=== PATIENT | male | born 1955 | race Two or more races ===

== ENCOUNTER 2016-04-11 | Inpatient (IN) | END 2017-04-10 23:59 | disposition other institution (70) | DRG 130 | DX: J96.10 Chronic respiratory failure, unspecified whether with hypoxia or hypercapnia (principal); R40.3 Persistent vegetative state; G93.1 Anoxic brain damage, not elsewhere classified; L89.154 Pressure ulcer of sacral region, stage 4; I50.9 Heart failure, unspecified; R13.10 Dysphagia, unspecified; Z99.11 Dependence on respirator [ventilator] status; I69.959 Hemiplegia and hemiparesis following unspecified cerebrovascular disease affecting unspecified side; N39.0 Urinary tract infection, site not specified; Z93.0 Tracheostomy status; D64.9 Anemia, unspecified; I10 Essential (primary) hypertension; I25.10 Atherosclerotic heart disease of native coronary artery without angina pectoris; I69.398 Other sequelae of cerebral infarction; Z93.1 Gastrostomy status; Z79.4 Long term (current) use of insulin; R10.9 Unspecified abdominal pain; E78.5 Hyperlipidemia, unspecified ==

== ENCOUNTER 2016-10-11 11:00 | Day surgery (SDC) | payer MEDICARE, MEDICAID, OTHER ==
[~2016-10-11 11:00] MED LIST: ACET-73 GT; ACID1TAB4 GT; ALBU2.5V13 IH; AMIN887L7 GT; ASCO500T9 GT; ASPI81TA31 GT; BISA10SU12 RC; CLOT30CR24 TP; CRAN3875 GT; DEXL60CA3 PO; DILANTIN GT; DOCU50LI GT; FERR300L GT; FERR325T6 GT; FURO40SO2 GT; HEPA500014 SUBCUT; INSU100V7 SQ; INSULIN REGULAR SQ; IPRA0.2S6 NEB; LISI-603 GT; Lisinopril GT; MAGN400O6 GT; MENT113O TP; MINE3.5O RIGHTEYE; MULT1TAB11 GT; NA P133E RC; PANT40SU2 GT; PIOG30TA10 PO; Phenytoin GT; SIMV20TA6 GT; SODI3.5O5 RIGHTEYE
[2016-10-11] MEDS ORDERED: ETOMIDATE 20 MG/10 ML VIAL MC ONE (11:01)
[2016-10-11] MEDS ORDERED: GLYCOPYRROLATE 0.2 MG/ML VIAL MC ONE (11:01)
[2016-10-11] MEDS ORDERED: IV NORMAL SALINE 1000 ML BAG IV ONE (11:01)
[2016-10-11] MEDS ORDERED: LIDOCAINE HCL 1% 20 ML VIAL MC ONE (11:01)
== END 2016-10-11 15:00 | disposition still patient (30) ==
LOC: DS 11:00
PROVIDERS: ATTEND Internal Medicine Gastroenterology
DX: K94.23 Gastrostomy malfunction (principal)
CPT/HCPCS: 43235; A4217; J3490; J7030

== ENCOUNTER 2017-04-11 | Inpatient (IN) | END 2018-04-10 23:59 | disposition still patient (30) | DRG 207 | DX: J96.11 Chronic respiratory failure with hypoxia (principal); L89.154 Pressure ulcer of sacral region, stage 4; R40.3 Persistent vegetative state; G93.1 Anoxic brain damage, not elsewhere classified; Z99.11 Dependence on respirator [ventilator] status; I69.959 Hemiplegia and hemiparesis following unspecified cerebrovascular disease affecting unspecified side; N39.0 Urinary tract infection, site not specified; L03.116 Cellulitis of left lower limb; R13.10 Dysphagia, unspecified; Z93.0 Tracheostomy status; I10 Essential (primary) hypertension; I25.10 Atherosclerotic heart disease of native coronary artery without angina pectoris; I69.398 Other sequelae of cerebral infarction; Z93.1 Gastrostomy status; Z79.4 Long term (current) use of insulin; R10.9 Unspecified abdominal pain; E78.5 Hyperlipidemia, unspecified; B96.4 Proteus (mirabilis) (morganii) as the cause of diseases classified elsewhere; B96.5 Pseudomonas (aeruginosa) (mallei) (pseudomallei) as the cause of diseases classified elsewhere; D63.8 Anemia in other chronic diseases classified elsewhere; E03.9 Hypothyroidism, unspecified; E11.65 Type 2 diabetes mellitus with hyperglycemia; G40.909 Epilepsy, unspecified, not intractable, without status epilepticus; H10.9 Unspecified conjunctivitis; H17.9 Unspecified corneal scar and opacity; H55.00 Unspecified nystagmus; K59.00 Constipation, unspecified; L01.03 Bullous impetigo; L60.0 Ingrowing nail; L74.0 Miliaria rubra; Z87.440 Personal history of urinary (tract) infections ==

== ENCOUNTER 2018-04-11 | Inpatient (IN) | END 2019-04-10 23:59 | disposition still patient (30) | DRG 207 | DX: J96.11 Chronic respiratory failure with hypoxia (principal); L89.154 Pressure ulcer of sacral region, stage 4; G82.50 Quadriplegia, unspecified; R40.3 Persistent vegetative state; G93.1 Anoxic brain damage, not elsewhere classified; Z99.11 Dependence on respirator [ventilator] status; I69.351 Hemiplegia and hemiparesis following cerebral infarction affecting right dominant side; J98.11 Atelectasis; L10.9 Pemphigus, unspecified; R47.01 Aphasia; N39.0 Urinary tract infection, site not specified; R13.10 Dysphagia, unspecified; Z93.0 Tracheostomy status; I25.10 Atherosclerotic heart disease of native coronary artery without angina pectoris; I69.398 Other sequelae of cerebral infarction; Z93.1 Gastrostomy status; Z79.4 Long term (current) use of insulin; E78.5 Hyperlipidemia, unspecified; D63.8 Anemia in other chronic diseases classified elsewhere; E03.9 Hypothyroidism, unspecified; E11.65 Type 2 diabetes mellitus with hyperglycemia; G40.909 Epilepsy, unspecified, not intractable, without status epilepticus; H10.9 Unspecified conjunctivitis; H17.9 Unspecified corneal scar and opacity; H55.00 Unspecified nystagmus; K59.00 Constipation, unspecified; Z87.440 Personal history of urinary (tract) infections; I11.0 Hypertensive heart disease with heart failure; I50.9 Heart failure, unspecified; K11.20 Sialoadenitis, unspecified; N35.919 Unspecified urethral stricture, male, unspecified site; Z86.14 Personal history of Methicillin resistant Staphylococcus aureus infection; Z87.01 Personal history of pneumonia (recurrent); R94.6 Abnormal results of thyroid function studies; Z79.01 Long term (current) use of anticoagulants ==

== ENCOUNTER 2018-11-26 11:34 | Inpatient (IN) | payer MEDICARE, MEDICAID ==
[2018-11-26] VITALS (16 sets, daily range): BP systolic 99–125; BP diastolic 76–98
[~2018-11-26] VITALS: Ht 170.2 cm; Wt 71.2 kg
[2018-11-26 12:45] LABS: CARBON DIOXIDE 28 mmol/L (21-32); CHLORIDE 102 mmol/L (98-107); CREATININE 0.6 mg/dL (0.6-1.3); GLUCOSE 115 mg/dL (74-106); POTASSIUM 3.9 mmol/L (3.5-5.1); UREA NITROGEN, BLOOD 28 mg/dL (7-18)
[2018-11-26 12:50] LABS: HEMATOCRIT 33.3 % (36.7-47.1); HEMOGLOBIN 11.2 g/dL (12.5-16.3)
[2018-11-26 13:33] LABS: BASOPHILS % (AUTO) 0.3 % (0.0-2.0); EOSINOPHILS # (AUTO) 0.2 K/uL (0.0-0.7); EOSINOPHILS % (AUTO) 1.8 % (0.0-7.0); HEMATOCRIT 33.2 % (36.7-47.1); HEMOGLOBIN 11.2 g/dL (12.5-16.3); LYMPHOCYTES # (AUTO) 1.2 K/uL (20.0-40.0); LYMPHOCYTES % (AUTO) 9.7 % (20.5-51.5); MEAN CORPUSCULAR HGB CONC 34 g/dL (32.5-36.3); MEAN CORPUSCULAR VOLUME 92.1 fL (73.0-96.2); MONOCYTES # (AUTO) 0.8 K/uL (2.0-10.0); MONOCYTES % (AUTO) 6.9 % (0.0-11.0); NEUTROPHILS # (AUTO) 9.8 K/uL (1.8-8.9); NEUTROPHILS % (AUTO) 81.3 % (38.5-71.5); PLATELET COUNT (AUTO) 295 K/uL (152-348)
[2018-11-26] MEDS: IV D5/ 0.9% NACL 1,000 ML IV PRN ×2 (13:56→20:30)
[2018-11-26] MEDS ORDERED: DEXTROSE 50% 50 ML DISP.SYRIN IV PRN (14:00)
[2018-11-26] MEDS ORDERED: ZOLPIDEM 5 MG TABLET GT PRN (14:00)
[2018-11-26] MEDS ORDERED: IPRATROPIUM BROMIDE 0.5 MG/2.5 ML NEBU NEB PRN (14:00)
[2018-11-26] MEDS ORDERED: SODIUM CHLORIDE 5% OPHT OINT 3.5 GM TUBE RIGHTEYE SCH (14:00)
[2018-11-26] MEDS ORDERED: ACETAMINOPHEN ES 500 MG TABLET GT PRN (14:00)
[2018-11-26] MEDS ORDERED: BISACODYL 10 MG SUPP.RECT RC PRN ×2 (14:00→16:15)
[2018-11-26] MEDS ORDERED: ONDANSETRON 4 MG/2 ML VIAL IV PRN (14:00)
[2018-11-26] MEDS ORDERED: MINERAL OIL/PETROLAT OPHT OINT 3.5 GM TUBE RIGHTEYE SCH (14:00)
[2018-11-26] MEDS ORDERED: HYDROCODONE/APAP 5-325MG TABLET GT PRN (14:00)
[2018-11-26] MEDS ORDERED: MAGNESIUM HYDROXIDE 30 ML LIQUID UDC GT PRN (14:00)
[2018-11-26] MEDS ORDERED: ACETAMINOPHEN 325 MG TABLET PO PRN (14:00)
[2018-11-26] MEDS ORDERED: ALBUTEROL SULFATE 2.5 MG/ 0.5 ML NEBU IH PRN (14:00)
[2018-11-26] MEDS ORDERED: MORPHINE SULFATE 2 MG/1 ML DISP.SYRIN IV PRN (14:15)
[2018-11-26] MEDS ORDERED: IV NORMAL SALINE 500 ML IV ONE (14:15)
[2018-11-26 14:35] LABS: BASOPHILS % (AUTO) 0.1 % (0.0-2.0); EOSINOPHILS # (AUTO) 0.2 K/uL (0.0-0.7); EOSINOPHILS % (AUTO) 1.5 % (0.0-7.0); HEMATOCRIT 31.4 % (36.7-47.1); HEMOGLOBIN 10.5 g/dL (12.5-16.3); LYMPHOCYTES # (AUTO) 1.4 K/uL (20.0-40.0); MEAN CORPUSCULAR HEMOGLOBIN 31.1 uug (23.8-33.4); MEAN CORPUSCULAR HGB CONC 33 g/dL (32.5-36.3); MEAN CORPUSCULAR VOLUME 93.2 fL (73.0-96.2); MONOCYTES # (AUTO) 0.9 K/uL (2.0-10.0); MONOCYTES % (AUTO) 7.6 % (0.0-11.0); NEUTROPHILS # (AUTO) 9.3 K/uL (1.8-8.9); NEUTROPHILS % (AUTO) 78.8 % (38.5-71.5); PLATELET COUNT (AUTO) 268 K/uL (152-348); RED BLOOD CELL COUNT(AUTO) 3.37 MIL/uL (4.06-5.63); WHITE BLOOD COUNT (AUTO) 11.8 K/uL (3.6-10.2)
[2018-11-26] MEDS ORDERED: MORPHINE SULFATE 2 MG/1 ML DISP.SYRIN IVP PRN (14:45)
[2018-11-26] MEDS ORDERED: FERR300L GT (15:46)
[2018-11-26] MEDS ORDERED: POTA10TA10 PO (15:46)
[2018-11-26] MEDS ORDERED: ACET-2154 GT (15:46)
[2018-11-26] MEDS ORDERED: INSU100V28 SQ (15:46)
[2018-11-26] MEDS ORDERED: ENOX40DI SUBCUT (15:46)
[2018-11-26] MEDS ORDERED: ATOR10TA GT (15:46)
[2018-11-26] MEDS ORDERED: POLY15DR27 OP (15:46)
[2018-11-26] MEDS ORDERED: HYDR1SOL MC (15:46)
[2018-11-26] MEDS ORDERED: LEVO50TA8 GT (15:46)
[2018-11-26] MEDS ORDERED: ZINC57OI3 TP (15:48)
[2018-11-26] MEDS ORDERED: DEXT50DI8 IV (15:50)
[2018-11-26] MEDS ORDERED: HYDROGEN PEROXIDE 3% TOP (15:59)
[2018-11-26] MEDS ORDERED: SODI3.5O4 RIGHTEYE (15:59)
[2018-11-26] MEDS ORDERED: PROTEIN HYDROLYS GT SCH (17:00)
[2018-11-26] MEDS: PANTOPRAZOLE ORAL SUSPENSION 40 MG SUSPDR.PKT GT SCH ×2 (17:00→17:24)
[2018-11-26] MEDS ORDERED: AMINO ACIDS GT SCH (17:00)
[2018-11-26] MEDS ORDERED: DOCUSATE SODIUM 100 MG/10 ML LIQUID UDC GT SCH (17:00)
[2018-11-26] MEDS: DOCUSATE SODIUM 100 MG/10 ML LIQUID UDC GT SCH ×2 (17:00→17:22)
[2018-11-26] MEDS ORDERED: IV NS 1000 ML 1,000 ML IV ONE (17:00)
[2018-11-26] MEDS ORDERED: [UNRECOGNIZED DRUG - OTHER] GT SCH (17:00)
[2018-11-26 17:51] LABS: HEMATOCRIT 26.5 % (36.7-47.1); HEMOGLOBIN 8.9 g/dL (12.5-16.3)
[2018-11-26] MEDS ORDERED: SIMVASTATIN 20 MG TABLET GT SCH (18:00)
[2018-11-26] MEDS: BLOOD SUGAR DIAGNOSTIC 1 EACH STRIP VI SCH (18:15)
[2018-11-26] MEDS ORDERED: MIDAZOLAM HCL 2 MG/2 ML VIAL ONE (18:23)
[2018-11-26] MEDS ORDERED: ROCURONIUM BROMIDE 50 MG/5 ML VIAL ONE (18:23)
[2018-11-26] MEDS ORDERED: ACETAMINOPHEN 325 MG TABLET GT PRN (18:30)
[2018-11-26] MEDS ORDERED: ETOMIDATE 20 MG/10 ML VIAL IV ONE (19:40)
[2018-11-26] MEDS ORDERED: IV NORMAL SALINE 1000 ML BAG IV ONE ×2 (19:40)
[2018-11-26] MEDS ORDERED: PROPOFOL 200 MG/20 ML BOTTLE IV ONE (19:40)
[2018-11-26] MEDS ORDERED: ESMOLOL HCL 100 MG/10 ML VIAL IV ONE (19:40)
[2018-11-26 20:14] LABS: HEMATOCRIT 24.8 % (36.7-47.1); HEMOGLOBIN 8.4 g/dL (12.5-16.3)
[2018-11-26] MEDS: POLYVINYL ALCOHOL OPHT DROPS 15 ML BOTTLE OP SCH (20:32)
[2018-11-26] MEDS: PHENYTOIN 100 MG/4 ML UDC GT SCH (20:32)
[2018-11-26] MEDS: SODIUM CHLORIDE 5% OPHT OINT 3.5 GM TUBE RIGHTEYE SCH (20:32)
[2018-11-26] MEDS: HYDROGEN PEROXIDE 3% 118 ML BOTTLE TOP SCH (20:33)
[2018-11-26] MEDS ORDERED: INSULIN GLARGINE,HUM 300 UNITS/3 ML CARTRIDGE SQ SCH ×2 (21:00)
[2018-11-26] MEDS ORDERED: ATORVASTATIN 10 MG TABLET GT SCH (21:00)
[2018-11-27] VITALS (14 sets, daily range): BP systolic 97–139; BP diastolic 56–78
[2018-11-27] MEDS: SODIUM CHLORIDE 5% OPHT OINT 3.5 GM TUBE RIGHTEYE SCH ×4 (00:04→12:39)
[2018-11-27 00:18] LABS: HEMATOCRIT 29.3 % (36.7-47.1)
[2018-11-27] MEDS: BLOOD SUGAR DIAGNOSTIC 1 EACH STRIP VI SCH ×4 (00:19→16:59)
[2018-11-27] MEDS: POLYVINYL ALCOHOL OPHT DROPS 15 ML BOTTLE OP SCH ×5 (00:20→16:20)
[2018-11-27] MEDS: INSULIN REGULAR, HUMAN 300 UNIT/3 ML VIAL SQ PRN ×4 (00:34→17:01)
[2018-11-27 04:48] LABS: BASOPHILS % (AUTO) 0.3 % (0.0-2.0); EOSINOPHILS # (AUTO) 0.2 K/uL (0.0-0.7); EOSINOPHILS % (AUTO) 1.2 % (0.0-7.0); HEMATOCRIT 27.6 % (36.7-47.1); HEMOGLOBIN 9.4 g/dL (12.5-16.3); LYMPHOCYTES # (AUTO) 1.8 K/uL (20.0-40.0); LYMPHOCYTES % (AUTO) 13.4 % (20.5-51.5); MEAN CORPUSCULAR HEMOGLOBIN 31.1 uug (23.8-33.4); MEAN CORPUSCULAR HGB CONC 34 g/dL (32.5-36.3); MEAN CORPUSCULAR VOLUME 91.6 fL (73.0-96.2); MONOCYTES % (AUTO) 7.8 % (0.0-11.0); NEUTROPHILS # (AUTO) 10.2 K/uL (1.8-8.9); NEUTROPHILS % (AUTO) 77.3 % (38.5-71.5); PLATELET COUNT (AUTO) 232 K/uL (152-348); RED BLOOD CELL COUNT(AUTO) 3.01 MIL/uL (4.06-5.63); WHITE BLOOD COUNT (AUTO) 13.2 K/uL (3.6-10.2)
[2018-11-27 05:26] LABS: CARBON DIOXIDE 25 mmol/L (21-32); CHLORIDE 107 mmol/L (98-107); CHOLESTEROL 117 mg/dL (<200); CREATININE 0.6 mg/dL (0.6-1.3); GLUCOSE 212 mg/dL (74-106); HDL CHOLESTEROL 27 mg/dL (40-60); MAGNESIUM 1.9 mg/dL (1.8-2.4); PHOSPHOROUS 3.1 mg/dL (2.5-4.9); POTASSIUM 4.8 mmol/L (3.5-5.1); TRIGLYCERIDES 282 MG/DL (30-150); UREA NITROGEN, BLOOD 21 mg/dL (7-18)
[2018-11-27] MEDS ORDERED: LEVOTHYROXINE SODIUM 50 MCG TABLET GT SCH (07:00)
[2018-11-27] MEDS: PHENYTOIN 100 MG/4 ML UDC GT SCH (07:47)
[2018-11-27] MEDS: DOCUSATE SODIUM 100 MG/10 ML LIQUID UDC GT SCH ×2 (07:47→16:45)
[2018-11-27] MEDS: ACIDOPHILUS/BULGARICUS CHEW TAB GT SCH ×2 (07:48→16:45)
[2018-11-27] MEDS: PANTOPRAZOLE ORAL SUSPENSION 40 MG SUSPDR.PKT GT SCH (07:48)
[2018-11-27] MEDS: HYDROGEN PEROXIDE 3% 118 ML BOTTLE TOP SCH (07:51)
[2018-11-27] MEDS ORDERED: ACETAMINOPHEN 325 MG TABLET PO PRN (08:00)
[2018-11-27 08:44] LABS: ABG BASE EXCESS -2.3 mmol/L; ABG HCO3 22.4 mmol/L; ABG PCO2 37.7 mmHg (35.0-45.0); ABG PH 7.391 (7.350-7.450); ABG PO2 117.9 mmHg (75.0-100.0); ABG SITE LEFT RADIAL; ABG TOTAL HEMOGLOBIN 9.7 G/dL (13.5-18.0); COHb 1.1 % (0.5-1.5); MetHb 0.3 % (0.0-1.5); O2Hb 97.2 % (94.0-97.0); VENT MODE VENT - A/C; VT, ABG 500 mL
[2018-11-27] MEDS ORDERED: FERROUS SULFATE 300 MG/5 ML LIQUID UDC GT SCH ×2 (09:00)
[2018-11-27] MEDS ORDERED: POTASSIUM CHLORIDE 20 MEQ POWDER PACKET GT SCH (09:00)
[2018-11-27] MEDS ORDERED: LISINOPRIL 20 MG TABLET GT SCH (09:00)
[2018-11-27] MEDS ORDERED: ASCORBIC ACID 500 MG TABLET GT SCH ×2 (09:00)
[2018-11-27] MEDS ORDERED: PIOGLITAZONE HCL 30 MG TABLET PO SCH (09:00)
[2018-11-27] MEDS ORDERED: ACETAMINOPHEN 650 MG/20.3 ML LIQUID UDC GT PRN (09:00)
[2018-11-27] MEDS ORDERED: ENOX40DI SQ (13:45)
[2018-11-27] MEDS ORDERED: ASPI81TA44 GT (13:45)
[2018-11-27] MEDS: IV D5/ 0.9% NACL 1,000 ML IV PRN (13:50)
[2018-11-27] MEDS ORDERED: PANT40SU2 GT (13:51)
[2018-11-27] MEDS ORDERED: NUT.237L30 GT (13:54)
[2018-11-27] MEDS ORDERED: SODIUM CHLORIDE 5% OPHT OINT 3.5 GM TUBE RIGHTEYE SCH (17:00)
[2018-11-28] MEDS ORDERED: PANTOPRAZOLE ORAL SUSPENSION 40 MG SUSPDR.PKT GT SCH (06:00)
[2018-11-28] MEDS ORDERED: FLEET ENEMA 133 ML BOTTLE RC SCH (09:00)
== END 2018-11-27 18:00 | DRG 982 ==
LOC: CCU 11:34
PROVIDERS: ADMIT Internal Medicine; ATTEND Internal Medicine
PROC: 0W3P7ZZ Control Bleeding in Gastrointestinal Tract, Via Natural or Artificial Opening (ICD-10-PCS; principal; 2018-11-26)
PROC: 30233N1 Transfusion of Nonautologous Red Blood Cells into Peripheral Vein, Percutaneous Approach (ICD-10-PCS; 2018-11-26)
PROC: 5A1945Z Respiratory Ventilation, 24-96 Consecutive Hours (ICD-10-PCS; 2018-11-26)
DX: J35.8 Other chronic diseases of tonsils and adenoids (principal); J96.10 Chronic respiratory failure, unspecified whether with hypoxia or hypercapnia; I69.351 Hemiplegia and hemiparesis following cerebral infarction affecting right dominant side; D62 Acute posthemorrhagic anemia; Z99.11 Dependence on respirator [ventilator] status; G93.1 Anoxic brain damage, not elsewhere classified; L10.9 Pemphigus, unspecified; R13.10 Dysphagia, unspecified; E11.9 Type 2 diabetes mellitus without complications; E78.5 Hyperlipidemia, unspecified; I25.10 Atherosclerotic heart disease of native coronary artery without angina pectoris; R23.8 Other skin changes; H10.403 Unspecified chronic conjunctivitis, bilateral; Z79.899 Other long term (current) drug therapy; Z93.1 Gastrostomy status; Z93.0 Tracheostomy status; Z87.440 Personal history of urinary (tract) infections; Z87.01 Personal history of pneumonia (recurrent); Z79.4 Long term (current) use of insulin; I11.0 Hypertensive heart disease with heart failure; I50.9 Heart failure, unspecified
CPT/HCPCS: 36415; 36600; 71045; 83735; 84100; 85018; 85025; 86850; 86900; 86901; 86920; 93005; 94002; 94003; A4663; G0378; J1815; J2250; J2270; J3490; J3590; J7030; J7040; J7042; J7050; P9016-BL; P9021

== ENCOUNTER 2018-11-30 08:43 | Outpatient (CLI) | payer MEDICAID, MEDICARE ==
[~2018-11-30 08:43] MED LIST changes: +ACET-2154 GT; -ACET-73 GT; -AMIN887L7 GT; -ASCO500T9 GT; -ASPI81TA31 GT; +ASPI81TA44 GT; +ATOR10TA GT; -CLOT30CR24 TP; -CRAN3875 GT; -DEXL60CA3 PO; +DEXT50DI8 IV; +ENOX40DI SQ; -FERR325T6 GT; -FURO40SO2 GT; -HEPA500014 SUBCUT; +HYDROGEN PEROXIDE 3% TOP; +INSU100V28 SQ; +LEVO50TA8 GT; -LISI-603 GT; -Lisinopril GT; -MAGN400O6 GT; -MENT113O TP; -MINE3.5O RIGHTEYE; -MULT1TAB11 GT; -NA P133E RC; +NUT.237L30 GT; -PIOG30TA10 PO; +POLY15DR27 OP; +POTA10TA10 PO; -Phenytoin GT; -SIMV20TA6 GT; +SODI3.5O4 RIGHTEYE; +ZINC57OI3 TP
[2018-11-30] MEDS ORDERED: IOHEXOL 300MG/ML 100 ML INFUS..BTL ONE (08:49)
[2018-11-30] MEDS ORDERED: IV NORMAL SALINE 250 ML IV ONE (08:49)
[2018-11-30] MEDS ORDERED: SWABABLE VALVE TRANSFER SET EA MC ONE (08:49)
== END 2018-11-30 23:59 | disposition home or self-care (01) ==
LOC: CT 08:43
PROVIDERS: ATTEND Internal Medicine Nephrology
DX: J35.8 Other chronic diseases of tonsils and adenoids (principal); J43.9 Emphysema, unspecified; M47.813 Spondylosis without myelopathy or radiculopathy, cervicothoracic region; M25.78 Osteophyte, vertebrae; J98.8 Other specified respiratory disorders; E07.89 Other specified disorders of thyroid; R59.0 Localized enlarged lymph nodes; Z93.0 Tracheostomy status
CPT/HCPCS: 70492; Q9967; J7050

== ENCOUNTER 2019-11-30 07:45 | Outpatient (CLI) | payer MEDICARE, OTHER ==
[2019-11-30] MEDS ORDERED: IV NORMAL SALINE 250 ML IV ONE (08:02)
[2019-11-30] MEDS ORDERED: SWABABLE VALVE TRANSFER SET EA MC ONE (08:02)
[2019-11-30] MEDS ORDERED: IOHEXOL 300MG/ML 100 ML INFUS..BTL ONE (08:02)
== END 2019-11-30 23:59 | disposition home or self-care (01) ==
LOC: CT 07:45
PROVIDERS: ATTEND Internal Medicine Pulmonary Disease
DX: G93.89 Other specified disorders of brain (principal); I65.03 Occlusion and stenosis of bilateral vertebral arteries; K11.0 Atrophy of salivary gland; M62.519 Muscle wasting and atrophy, not elsewhere classified, unspecified shoulder; Z93.0 Tracheostomy status
CPT/HCPCS: 70492; Q9967; J7050

== ENCOUNTER → 2020-04-10 23:59 | Inpatient (IN) | payer MEDICARE, MEDICAID ==
[2019-04-12 08:00] VITALS: BP 107/64
[2019-04-12] MEDS: INSULIN REGULAR, HUMAN 300 UNIT/3 ML VIAL SQ PRN ×2 (14:20→22:18)
[2019-04-12] MEDS: GLUCERNA 1.2 1000ML LIQUID GT PRN (14:50)
[2019-04-12] MEDS: POLYVINYL ALCOHOL OPHT DROPS 15 ML BOTTLE EACHEYE SCH ×2 (16:24→20:00)
[2019-04-12] MEDS: SODIUM CHLORIDE 5% OPHT OINT 3.5 GM TUBE RIGHTEYE SCH ×2 (17:27→21:00)
[2019-04-12] MEDS: INSULIN GLARGINE,HUM 300 UNITS/3 ML CARTRIDGE SQ SCH (17:37)
--- NOTE | 2019-04-12 19:57 | NUR ---
Received pt on HT-50 ventilator with the following settings of AC-14, Vt-500, PEEP+5, FIO2-35%, trached with Portex#9 cuffed trach, which is in the place and secure. No s/s of respiratory distress noted. Airway care done, pt responded to physical stimuli. HME changed. Resus. bag and back up trach at bedside. Vent and alarms checked and reset.
[2019-04-12 20:15] VITALS: BP 134/87
[2019-04-12] MEDS: FERROUS SULFATE 330 MG/7.5 ML UDC- FOR SA ONLY GT SCH (21:00)
[2019-04-12] MEDS: PHENYTOIN 100 MG/4 ML UDC GT SCH (21:00)
[2019-04-12] MEDS: DOCUSATE SODIUM 100 MG/10 ML LIQUID UDC GT SCH (21:00)
[2019-04-12] MEDS: ATORVASTATIN 10 MG TABLET GT SCH (21:00)
[2019-04-12] MEDS: COD LIVER OIL/ZINC OXIDE OINT 113 GM TUBE TOP SCH (21:00)
[2019-04-12] MEDS: ACIDOPHILUS/BULGARICUS CHEW TAB GT SCH (21:00)
[2019-04-12] MEDS: HYDROGEN PEROXIDE 3% 118 ML BOTTLE TP SCH (21:02)
[2019-04-12] MEDS: BLOOD SUGAR DIAGNOSTIC 1 EACH STRIP VI SCH (22:17)
[2019-04-12 22:21] VITALS: BP 134/87
[2019-04-13] MEDS: SODIUM CHLORIDE 5% OPHT OINT 3.5 GM TUBE RIGHTEYE SCH ×6 (01:00→21:43)
[2019-04-13] MEDS: POLYVINYL ALCOHOL OPHT DROPS 15 ML BOTTLE EACHEYE SCH ×6 (04:00→20:00)
[2019-04-13] MEDS: PANTOPRAZOLE ORAL SUSPENSION 40 MG SUSPDR.PKT GT SCH (05:42)
[2019-04-13] MEDS: LEVOTHYROXINE SODIUM 50 MCG TABLET GT SCH (05:42)
[2019-04-13] MEDS: INSULIN GLARGINE,HUM 300 UNITS/3 ML CARTRIDGE SQ SCH ×2 (05:50→17:51)
[2019-04-13] MEDS: BLOOD SUGAR DIAGNOSTIC 1 EACH STRIP VI SCH ×3 (05:51→21:44)
[2019-04-13] MEDS: INSULIN REGULAR, HUMAN 300 UNIT/3 ML VIAL SQ PRN ×3 (05:51→21:45)
[2019-04-13] MEDS: POTASSIUM CHLORIDE 20 MEQ POWDER PACKET GT SCH (08:01)
[2019-04-13] MEDS: PHENYTOIN 100 MG/4 ML UDC GT SCH ×2 (08:01→21:43)
[2019-04-13 08:02] VITALS: BP 111/70
[2019-04-13] MEDS: ACIDOPHILUS/BULGARICUS CHEW TAB GT SCH ×2 (08:02→21:43)
[2019-04-13] MEDS: DOCUSATE SODIUM 100 MG/10 ML LIQUID UDC GT SCH ×2 (08:02→21:43)
[2019-04-13] MEDS: COD LIVER OIL/ZINC OXIDE OINT 113 GM TUBE TOP SCH ×2 (08:02→21:43)
[2019-04-13] MEDS: HYDROGEN PEROXIDE 3% 118 ML BOTTLE TP SCH ×2 (09:52→20:16)
--- NOTE | 2019-04-13 19:00 | NUR ---
RECEIVED PATIENT ON THE HT-50 VENT WITH THE FOLLOWING SETTINGS THAT ARE CHARTED ON THE MECHANICAL VENT NOTES. TRACH TUBE IS PATENT AND SECURED WITH TRACH TIES. HME CHANGED. TRACH CARE DONE. SUCTIONED SMALL AMOUNTS OF THIN WHITE/YELLOW SECRETIONS. VENT ALARMS CHECKED AND THEY ARE ON AND AUDIBLE. VENT IS PLUGGED IN THE RED OUTLET. BACK UP TRACH AND AMBU BAG IS BY BEDSIDE. PATIENT IS TOLERATING CURRENT VENT SETTINGS WELL AT THIS TIME WITH NO SOB NOTED.
[2019-04-13 20:00] VITALS: BP 126/73
[2019-04-13] MEDS: FERROUS SULFATE 330 MG/7.5 ML UDC- FOR SA ONLY GT SCH (21:43)
[2019-04-13] MEDS: ATORVASTATIN 10 MG TABLET GT SCH (21:43)
[2019-04-14] MEDS: SODIUM CHLORIDE 5% OPHT OINT 3.5 GM TUBE RIGHTEYE SCH ×6 (01:00→21:00)
[2019-04-14] MEDS: POLYVINYL ALCOHOL OPHT DROPS 15 ML BOTTLE EACHEYE SCH ×6 (04:00→20:00)
[2019-04-14] MEDS: PANTOPRAZOLE ORAL SUSPENSION 40 MG SUSPDR.PKT GT SCH (05:42)
[2019-04-14] MEDS: LEVOTHYROXINE SODIUM 50 MCG TABLET GT SCH (05:44)
[2019-04-14] MEDS: BLOOD SUGAR DIAGNOSTIC 1 EACH STRIP VI SCH ×3 (05:48→22:10)
[2019-04-14] MEDS: INSULIN GLARGINE,HUM 300 UNITS/3 ML CARTRIDGE SQ SCH ×2 (05:48→17:14)
[2019-04-14] MEDS: INSULIN REGULAR, HUMAN 300 UNIT/3 ML VIAL SQ PRN ×3 (05:50→22:11)
[2019-04-14] MEDS: HYDROGEN PEROXIDE 3% 118 ML BOTTLE TP SCH ×2 (07:05→21:11)
[2019-04-14 08:02] VITALS: BP 107/72
[2019-04-14] MEDS: DOCUSATE SODIUM 100 MG/10 ML LIQUID UDC GT SCH ×2 (08:31→21:00)
[2019-04-14] MEDS: COD LIVER OIL/ZINC OXIDE OINT 113 GM TUBE TOP SCH ×2 (08:31→21:00)
[2019-04-14] MEDS: BISACODYL 10 MG SUPP.RECT RC SCH (08:31)
[2019-04-14] MEDS: POTASSIUM CHLORIDE 20 MEQ POWDER PACKET GT SCH (08:31)
[2019-04-14] MEDS: PHENYTOIN 100 MG/4 ML UDC GT SCH ×2 (08:31→21:00)
[2019-04-14] MEDS: ACIDOPHILUS/BULGARICUS CHEW TAB GT SCH ×2 (08:31→21:00)
[2019-04-14] MEDS: GLUCERNA 1.2 1000ML LIQUID GT PRN (15:37)
--- NOTE | 2019-04-14 20:22 | NUR ---
Received pt on HT-50 ventilator with the following settings of AC-14, Vt-500, PEEP+5, FIO2-35%, trached with Portex#9 cuffed trach, which is in the place and secure. No s/s of respiratory distress noted. Airway care done, pt responded to physical stimuli. HME and Sx Guaman changed. Resus. bag and back up trach at bedside. Vent and alarms checked and reset.
[2019-04-14] MEDS: ATORVASTATIN 10 MG TABLET GT SCH (21:00)
[2019-04-14] MEDS: FERROUS SULFATE 330 MG/7.5 ML UDC- FOR SA ONLY GT SCH (21:00)
[2019-04-14 21:03] VITALS: BP 129/71
[2019-04-15] MEDS: SODIUM CHLORIDE 5% OPHT OINT 3.5 GM TUBE RIGHTEYE SCH ×6 (01:00→20:26)
[2019-04-15] MEDS: POLYVINYL ALCOHOL OPHT DROPS 15 ML BOTTLE EACHEYE SCH ×6 (04:00→20:24)
[2019-04-15] MEDS: PANTOPRAZOLE ORAL SUSPENSION 40 MG SUSPDR.PKT GT SCH (05:20)
[2019-04-15] MEDS: LEVOTHYROXINE SODIUM 50 MCG TABLET GT SCH (05:22)
[2019-04-15] MEDS: INSULIN GLARGINE,HUM 300 UNITS/3 ML CARTRIDGE SQ SCH ×2 (05:24→17:05)
[2019-04-15] MEDS: BLOOD SUGAR DIAGNOSTIC 1 EACH STRIP VI SCH ×3 (05:24→22:05)
[2019-04-15] MEDS: INSULIN REGULAR, HUMAN 300 UNIT/3 ML VIAL SQ PRN ×3 (05:25→22:07)
[2019-04-15 08:02] VITALS: BP 124/78
[2019-04-15] MEDS: PHENYTOIN 100 MG/4 ML UDC GT SCH ×2 (08:40→20:25)
[2019-04-15] MEDS: DOCUSATE SODIUM 100 MG/10 ML LIQUID UDC GT SCH ×2 (08:40→20:24)
[2019-04-15] MEDS: COD LIVER OIL/ZINC OXIDE OINT 113 GM TUBE TOP SCH ×2 (08:42→20:27)
[2019-04-15] MEDS: POTASSIUM CHLORIDE 20 MEQ POWDER PACKET GT SCH (08:42)
[2019-04-15] MEDS: ACIDOPHILUS/BULGARICUS CHEW TAB GT SCH ×2 (08:42→20:26)
[2019-04-15] MEDS: HYDROGEN PEROXIDE 3% 118 ML BOTTLE TP SCH ×2 (09:00→20:04)
[2019-04-15] MEDS: GLUCERNA 1.2 1000ML LIQUID GT PRN (13:27)
--- NOTE | 2019-04-15 19:05 | NUR ---
PT RECEIVED ON THE HT-50 VENTILATOR WITH THE FOLLOWING SETTINGS THAT ARE CHARTED ON THE MECHANICAL VENTILATOR NOTES. TRACH CARE DONE AND HME CHANGED. TRACH TUBE IS PATENT AND SECURED WITH TRACH TIES. SUCTIONED SMALL AMOUNTS OF THICK WHITE/YELLOW SECRETIONS. VENTILATOR ALARMS CHECKED AND THEY ARE ON AND LOUD. VENTILATOR IS PLUGGED IN THE RED EMERGENCY OUTLET. SPARE TRACH AND BMV IS BY BEDSIDE. PT IS TOLERATING CURRENT VENTILATOR SETTINGS WELL AT THIS TIME WITH NO SHORTNESS OF BREATH NOTED. WILL CONTINUE TO MONITOR PT THROUGHOUT THE REST OF THE SHIFT.
[2019-04-15 20:17] VITALS: BP 137/75
[2019-04-15] MEDS: FERROUS SULFATE 330 MG/7.5 ML UDC- FOR SA ONLY GT SCH (20:25)
[2019-04-15] MEDS: ATORVASTATIN 10 MG TABLET GT SCH (20:26)
[2019-04-16] MEDS: SODIUM CHLORIDE 5% OPHT OINT 3.5 GM TUBE RIGHTEYE SCH ×6 (00:50→20:54)
[2019-04-16] MEDS: POLYVINYL ALCOHOL OPHT DROPS 15 ML BOTTLE EACHEYE SCH ×6 (00:50→20:43)
[2019-04-16] MEDS: PANTOPRAZOLE ORAL SUSPENSION 40 MG SUSPDR.PKT GT SCH (05:57)
[2019-04-16] MEDS: LEVOTHYROXINE SODIUM 50 MCG TABLET GT SCH (05:57)
[2019-04-16] MEDS: BLOOD SUGAR DIAGNOSTIC 1 EACH STRIP VI SCH ×3 (05:58→22:04)
[2019-04-16] MEDS: INSULIN REGULAR, HUMAN 300 UNIT/3 ML VIAL SQ PRN ×3 (06:00→22:06)
[2019-04-16] MEDS: INSULIN GLARGINE,HUM 300 UNITS/3 ML CARTRIDGE SQ SCH ×2 (06:01→17:13)
[2019-04-16 08:00] VITALS: BP 115/67
[2019-04-16] MEDS: DOCUSATE SODIUM 100 MG/10 ML LIQUID UDC GT SCH ×2 (08:09→20:43)
[2019-04-16] MEDS: PHENYTOIN 100 MG/4 ML UDC GT SCH ×2 (08:09→20:43)
[2019-04-16] MEDS: POTASSIUM CHLORIDE 20 MEQ POWDER PACKET GT SCH (08:10)
[2019-04-16] MEDS: ACIDOPHILUS/BULGARICUS CHEW TAB GT SCH ×2 (08:10→20:53)
[2019-04-16] MEDS: BISACODYL 10 MG SUPP.RECT RC SCH (08:10)
[2019-04-16] MEDS: COD LIVER OIL/ZINC OXIDE OINT 113 GM TUBE TOP SCH ×2 (08:11→20:54)
[2019-04-16] MEDS: HYDROGEN PEROXIDE 3% 118 ML BOTTLE TP SCH ×2 (09:00→21:17)
[2019-04-16] MEDS: GLUCERNA 1.2 1000ML LIQUID GT PRN (12:32)
[2019-04-16 20:25] VITALS: BP 137/72
[2019-04-16] MEDS: FERROUS SULFATE 330 MG/7.5 ML UDC- FOR SA ONLY GT SCH (20:53)
[2019-04-16] MEDS: ATORVASTATIN 10 MG TABLET GT SCH (20:53)
[2019-04-17] MEDS: SODIUM CHLORIDE 5% OPHT OINT 3.5 GM TUBE RIGHTEYE SCH ×6 (00:15→20:53)
[2019-04-17] MEDS: POLYVINYL ALCOHOL OPHT DROPS 15 ML BOTTLE EACHEYE SCH ×6 (00:15→20:49)
[2019-04-17] MEDS: PANTOPRAZOLE ORAL SUSPENSION 40 MG SUSPDR.PKT GT SCH (06:14)
[2019-04-17] MEDS: LEVOTHYROXINE SODIUM 50 MCG TABLET GT SCH (06:14)
[2019-04-17] MEDS: BLOOD SUGAR DIAGNOSTIC 1 EACH STRIP VI SCH ×3 (06:14→22:15)
[2019-04-17] MEDS: INSULIN REGULAR, HUMAN 300 UNIT/3 ML VIAL SQ PRN ×3 (06:17→22:18)
[2019-04-17] MEDS: INSULIN GLARGINE,HUM 300 UNITS/3 ML CARTRIDGE SQ SCH ×2 (06:17→17:27)
[2019-04-17] MEDS: GLUCERNA 1.2 1000ML LIQUID GT PRN (07:02)
[2019-04-17 08:11] VITALS: BP 117/74
[2019-04-17] MEDS: DOCUSATE SODIUM 100 MG/10 ML LIQUID UDC GT SCH ×2 (08:25→20:50)
[2019-04-17] MEDS: POTASSIUM CHLORIDE 20 MEQ POWDER PACKET GT SCH (08:25)
[2019-04-17] MEDS: PHENYTOIN 100 MG/4 ML UDC GT SCH ×2 (08:25→20:52)
[2019-04-17] MEDS: ACIDOPHILUS/BULGARICUS CHEW TAB GT SCH ×2 (08:25→20:52)
[2019-04-17] MEDS: COD LIVER OIL/ZINC OXIDE OINT 113 GM TUBE TOP SCH ×2 (08:26→20:53)
[2019-04-17] MEDS: HYDROGEN PEROXIDE 3% 118 ML BOTTLE TP SCH ×2 (09:10→20:23)
[2019-04-17 20:00] VITALS: BP 145/81
[2019-04-17] MEDS: ATORVASTATIN 10 MG TABLET GT SCH (20:52)
[2019-04-17] MEDS: FERROUS SULFATE 330 MG/7.5 ML UDC- FOR SA ONLY GT SCH (20:52)
[2019-04-18] MEDS: POLYVINYL ALCOHOL OPHT DROPS 15 ML BOTTLE EACHEYE SCH ×6 (00:29→20:31)
[2019-04-18] MEDS: SODIUM CHLORIDE 5% OPHT OINT 3.5 GM TUBE RIGHTEYE SCH ×6 (01:21→20:37)
[2019-04-18] MEDS: GLUCERNA 1.2 1000ML LIQUID GT PRN (05:23)
[2019-04-18] MEDS: LEVOTHYROXINE SODIUM 50 MCG TABLET GT SCH (06:01)
[2019-04-18] MEDS: PANTOPRAZOLE ORAL SUSPENSION 40 MG SUSPDR.PKT GT SCH (06:01)
[2019-04-18] MEDS: INSULIN GLARGINE,HUM 300 UNITS/3 ML CARTRIDGE SQ SCH ×2 (06:03→18:06)
[2019-04-18] MEDS: BLOOD SUGAR DIAGNOSTIC 1 EACH STRIP VI SCH ×3 (06:03→22:21)
[2019-04-18] MEDS: INSULIN REGULAR, HUMAN 300 UNIT/3 ML VIAL SQ PRN ×3 (06:05→22:25)
[2019-04-18 08:00] VITALS: BP 95/62
[2019-04-18] MEDS: DOCUSATE SODIUM 100 MG/10 ML LIQUID UDC GT SCH ×2 (08:50→20:33)
[2019-04-18] MEDS: PHENYTOIN 100 MG/4 ML UDC GT SCH ×2 (08:50→20:34)
[2019-04-18] MEDS: ACIDOPHILUS/BULGARICUS CHEW TAB GT SCH ×2 (08:50→20:34)
[2019-04-18] MEDS: COD LIVER OIL/ZINC OXIDE OINT 113 GM TUBE TOP SCH ×2 (08:53→20:37)
[2019-04-18] MEDS: BISACODYL 10 MG SUPP.RECT RC SCH (08:53)
[2019-04-18] MEDS: POTASSIUM CHLORIDE 20 MEQ POWDER PACKET GT SCH (08:53)
[2019-04-18] MEDS: HYDROGEN PEROXIDE 3% 118 ML BOTTLE TP SCH ×2 (09:00→18:41)
--- NOTE | 2019-04-18 09:00 | NUR ---
Seen and examined by Maira Rosario ,no new orders noted.
[2019-04-18] MEDS: FERROUS SULFATE 330 MG/7.5 ML UDC- FOR SA ONLY GT SCH (20:34)
[2019-04-18] MEDS: ATORVASTATIN 10 MG TABLET GT SCH (20:37)
[2019-04-18 22:53] VITALS: BP 146/75
[2019-04-19] MEDS: POLYVINYL ALCOHOL OPHT DROPS 15 ML BOTTLE EACHEYE SCH ×6 (00:12→20:00)
[2019-04-19] MEDS: SODIUM CHLORIDE 5% OPHT OINT 3.5 GM TUBE RIGHTEYE SCH ×6 (01:00→21:11)
[2019-04-19] MEDS: GLUCERNA 1.2 1000ML LIQUID GT PRN (04:00)
[2019-04-19] MEDS: LEVOTHYROXINE SODIUM 50 MCG TABLET GT SCH (05:01)
[2019-04-19] MEDS: PANTOPRAZOLE ORAL SUSPENSION 40 MG SUSPDR.PKT GT SCH (05:01)
[2019-04-19] MEDS: BLOOD SUGAR DIAGNOSTIC 1 EACH STRIP VI SCH ×3 (05:02→21:20)
[2019-04-19] MEDS: INSULIN REGULAR, HUMAN 300 UNIT/3 ML VIAL SQ PRN ×3 (05:03→21:19)
[2019-04-19] MEDS: INSULIN GLARGINE,HUM 300 UNITS/3 ML CARTRIDGE SQ SCH ×2 (06:18→18:39)
[2019-04-19 08:00] VITALS: BP 96/52
[2019-04-19] MEDS: HYDROGEN PEROXIDE 3% 118 ML BOTTLE TP SCH ×2 (08:01→20:21)
[2019-04-19] MEDS: ACIDOPHILUS/BULGARICUS CHEW TAB GT SCH ×2 (08:44→21:10)
[2019-04-19] MEDS: POTASSIUM CHLORIDE 20 MEQ POWDER PACKET GT SCH (08:44)
[2019-04-19] MEDS: PHENYTOIN 100 MG/4 ML UDC GT SCH ×2 (08:44→21:09)
[2019-04-19] MEDS: DOCUSATE SODIUM 100 MG/10 ML LIQUID UDC GT SCH ×2 (08:44→21:09)
[2019-04-19] MEDS: COD LIVER OIL/ZINC OXIDE OINT 113 GM TUBE TOP SCH ×2 (08:45→21:11)
--- NOTE | 2019-04-19 16:00 | NUR ---
SEEN BY AND WITH NNO.
[2019-04-19] MEDS: FERROUS SULFATE 330 MG/7.5 ML UDC- FOR SA ONLY GT SCH (21:10)
[2019-04-19] MEDS: ATORVASTATIN 10 MG TABLET GT SCH (21:10)
[2019-04-19 22:17] VITALS: BP 112/64
[2019-04-20] MEDS: POLYVINYL ALCOHOL OPHT DROPS 15 ML BOTTLE EACHEYE SCH ×6 (00:05→19:50)
[2019-04-20] MEDS: SODIUM CHLORIDE 5% OPHT OINT 3.5 GM TUBE RIGHTEYE SCH ×6 (00:05→21:01)
[2019-04-20] MEDS: GLUCERNA 1.2 1000ML LIQUID GT PRN (04:12)
[2019-04-20] MEDS: BLOOD SUGAR DIAGNOSTIC 1 EACH STRIP VI SCH ×3 (05:09→21:55)
[2019-04-20] MEDS: PANTOPRAZOLE ORAL SUSPENSION 40 MG SUSPDR.PKT GT SCH (05:09)
[2019-04-20] MEDS: LEVOTHYROXINE SODIUM 50 MCG TABLET GT SCH (05:09)
[2019-04-20] MEDS: INSULIN GLARGINE,HUM 300 UNITS/3 ML CARTRIDGE SQ SCH ×2 (05:11→18:05)
[2019-04-20] MEDS: INSULIN REGULAR, HUMAN 300 UNIT/3 ML VIAL SQ PRN ×3 (05:12→21:54)
[2019-04-20] MEDS: DOCUSATE SODIUM 100 MG/10 ML LIQUID UDC GT SCH ×2 (08:46→21:01)
[2019-04-20] MEDS: ACIDOPHILUS/BULGARICUS CHEW TAB GT SCH ×2 (08:47→21:01)
[2019-04-20] MEDS: PHENYTOIN 100 MG/4 ML UDC GT SCH ×2 (08:47→21:01)
[2019-04-20] MEDS: POTASSIUM CHLORIDE 20 MEQ POWDER PACKET GT SCH (08:48)
[2019-04-20] MEDS: BISACODYL 10 MG SUPP.RECT RC SCH (08:48)
[2019-04-20] MEDS: COD LIVER OIL/ZINC OXIDE OINT 113 GM TUBE TOP SCH ×2 (08:48→21:01)
[2019-04-20] MEDS: HYDROGEN PEROXIDE 3% 118 ML BOTTLE TP SCH ×2 (08:49→21:28)
[2019-04-20 11:03] VITALS: BP 102/69
[2019-04-20] MEDS: ATORVASTATIN 10 MG TABLET GT SCH (21:01)
[2019-04-20] MEDS: FERROUS SULFATE 330 MG/7.5 ML UDC- FOR SA ONLY GT SCH (21:01)
[2019-04-20 22:00] VITALS: BP 112/69
[2019-04-21] MEDS: POLYVINYL ALCOHOL OPHT DROPS 15 ML BOTTLE EACHEYE SCH ×6 (00:05→20:00)
[2019-04-21] MEDS: SODIUM CHLORIDE 5% OPHT OINT 3.5 GM TUBE RIGHTEYE SCH ×6 (01:06→21:16)
[2019-04-21] MEDS: LEVOTHYROXINE SODIUM 50 MCG TABLET GT SCH (05:29)
[2019-04-21] MEDS: PANTOPRAZOLE ORAL SUSPENSION 40 MG SUSPDR.PKT GT SCH (05:29)
[2019-04-21] MEDS: BLOOD SUGAR DIAGNOSTIC 1 EACH STRIP VI SCH ×3 (05:30→22:20)
[2019-04-21] MEDS: INSULIN GLARGINE,HUM 300 UNITS/3 ML CARTRIDGE SQ SCH ×2 (05:32→18:17)
[2019-04-21] MEDS: GLUCERNA 1.2 1000ML LIQUID GT PRN (05:35)
[2019-04-21] MEDS: INSULIN REGULAR, HUMAN 300 UNIT/3 ML VIAL SQ PRN ×2 (05:37→14:07)
[2019-04-21] MEDS: HYDROGEN PEROXIDE 3% 118 ML BOTTLE TP SCH ×2 (07:54→21:00)
[2019-04-21] MEDS: DOCUSATE SODIUM 100 MG/10 ML LIQUID UDC GT SCH ×2 (08:22→21:16)
[2019-04-21] MEDS: PHENYTOIN 100 MG/4 ML UDC GT SCH ×2 (08:23→21:16)
[2019-04-21] MEDS: ACIDOPHILUS/BULGARICUS CHEW TAB GT SCH ×2 (08:24→21:16)
[2019-04-21] MEDS: COD LIVER OIL/ZINC OXIDE OINT 113 GM TUBE TOP SCH ×2 (08:24→21:16)
[2019-04-21] MEDS: POTASSIUM CHLORIDE 20 MEQ POWDER PACKET GT SCH (08:24)
--- NOTE | 2019-04-21 09:44 | NUR ---
SEEN BY DR. CARVER AND WITH NNO.
[2019-04-21 10:57] VITALS: BP 111/67
[2019-04-21] MEDS: FERROUS SULFATE 330 MG/7.5 ML UDC- FOR SA ONLY GT SCH (21:16)
[2019-04-21] MEDS: ATORVASTATIN 10 MG TABLET GT SCH (21:16)
[2019-04-21 22:36] VITALS: BP 104/59
[2019-04-22] MEDS: SODIUM CHLORIDE 5% OPHT OINT 3.5 GM TUBE RIGHTEYE SCH ×6 (00:23→20:52)
[2019-04-22] MEDS: POLYVINYL ALCOHOL OPHT DROPS 15 ML BOTTLE EACHEYE SCH ×6 (00:23→20:45)
[2019-04-22] MEDS: GLUCERNA 1.2 1000ML LIQUID GT PRN (04:54)
[2019-04-22] MEDS: PANTOPRAZOLE ORAL SUSPENSION 40 MG SUSPDR.PKT GT SCH (05:12)
[2019-04-22] MEDS: LEVOTHYROXINE SODIUM 50 MCG TABLET GT SCH (05:12)
[2019-04-22] MEDS: BLOOD SUGAR DIAGNOSTIC 1 EACH STRIP VI SCH ×3 (05:12→21:03)
[2019-04-22] MEDS: INSULIN GLARGINE,HUM 300 UNITS/3 ML CARTRIDGE SQ SCH ×2 (05:13→17:38)
[2019-04-22] MEDS: INSULIN REGULAR, HUMAN 300 UNIT/3 ML VIAL SQ PRN ×3 (05:14→21:34)
[2019-04-22 08:00] VITALS: BP 95/56
[2019-04-22] MEDS: PHENYTOIN 100 MG/4 ML UDC GT SCH ×2 (08:33→20:52)
[2019-04-22] MEDS: DOCUSATE SODIUM 100 MG/10 ML LIQUID UDC GT SCH ×2 (08:33→20:46)
[2019-04-22] MEDS: ACIDOPHILUS/BULGARICUS CHEW TAB GT SCH ×2 (08:33→20:52)
[2019-04-22] MEDS: COD LIVER OIL/ZINC OXIDE OINT 113 GM TUBE TOP SCH ×2 (08:34→20:53)
[2019-04-22] MEDS: POTASSIUM CHLORIDE 20 MEQ POWDER PACKET GT SCH (08:34)
[2019-04-22] MEDS: BISACODYL 10 MG SUPP.RECT RC SCH (08:34)
[2019-04-22] MEDS: HYDROGEN PEROXIDE 3% 118 ML BOTTLE TP SCH ×2 (09:00→20:28)
[2019-04-22] MEDS: ATORVASTATIN 10 MG TABLET GT SCH (20:50)
[2019-04-22] MEDS: FERROUS SULFATE 330 MG/7.5 ML UDC- FOR SA ONLY GT SCH (20:54)
[2019-04-22 22:44] VITALS: BP 124/78
[2019-04-23] MEDS: POLYVINYL ALCOHOL OPHT DROPS 15 ML BOTTLE EACHEYE SCH ×6 (00:07→20:00)
[2019-04-23] MEDS: SODIUM CHLORIDE 5% OPHT OINT 3.5 GM TUBE RIGHTEYE SCH ×6 (00:08→21:07)
[2019-04-23] MEDS: PANTOPRAZOLE ORAL SUSPENSION 40 MG SUSPDR.PKT GT SCH (06:00)
[2019-04-23] MEDS: LEVOTHYROXINE SODIUM 50 MCG TABLET GT SCH (06:00)
[2019-04-23] MEDS: INSULIN GLARGINE,HUM 300 UNITS/3 ML CARTRIDGE SQ SCH ×2 (06:01→17:57)
[2019-04-23] MEDS: BLOOD SUGAR DIAGNOSTIC 1 EACH STRIP VI SCH ×3 (06:01→21:16)
[2019-04-23] MEDS: INSULIN REGULAR, HUMAN 300 UNIT/3 ML VIAL SQ PRN ×3 (06:02→21:17)
[2019-04-23 08:00] VITALS: BP 103/63
[2019-04-23] MEDS: HYDROGEN PEROXIDE 3% 118 ML BOTTLE TP SCH ×2 (08:18→21:11)
[2019-04-23] MEDS: PHENYTOIN 100 MG/4 ML UDC GT SCH ×2 (08:31→21:05)
[2019-04-23] MEDS: DOCUSATE SODIUM 100 MG/10 ML LIQUID UDC GT SCH ×2 (08:31→21:05)
[2019-04-23] MEDS: ACIDOPHILUS/BULGARICUS CHEW TAB GT SCH ×2 (08:31→21:06)
[2019-04-23] MEDS: POTASSIUM CHLORIDE 20 MEQ POWDER PACKET GT SCH (08:32)
[2019-04-23] MEDS: COD LIVER OIL/ZINC OXIDE OINT 113 GM TUBE TOP SCH ×2 (08:32→21:07)
--- NOTE | 2019-04-23 11:43 | NUR ---
SW asked RAZIA Somers to assist SW with calling patient's daughter Mana, in order to schedule a time for Mana to come in to meet with this SW so Mana can sign patient's annual admission paperwork. RAZIA Somers called Mana [phone] and spoke with Mana. Mana stated that she will be coming in tomorrow afternoon 04/24/2019 to meet with this SW.
[2019-04-23 20:38] VITALS: BP 122/73
--- NOTE | 2019-04-23 20:42 | NUR ---
Received pt on HT-50 ventilator with the following settings of AC-14, Vt-500, PEEP+5, FIO2-35%, trached with Portex#9 cuffed trach, which is in the place and secure. No s/s of respiratory distress noted. Airway care done, pt responded to physical stimuli. Resus. bag and back up trach at bedside. Vent and alarms checked and reset.
[2019-04-23] MEDS: FERROUS SULFATE 330 MG/7.5 ML UDC- FOR SA ONLY GT SCH (21:05)
[2019-04-23] MEDS: ATORVASTATIN 10 MG TABLET GT SCH (21:06)
[2019-04-24] MEDS: SODIUM CHLORIDE 5% OPHT OINT 3.5 GM TUBE RIGHTEYE SCH ×6 (01:00→21:57)
[2019-04-24] MEDS: POLYVINYL ALCOHOL OPHT DROPS 15 ML BOTTLE EACHEYE SCH ×6 (04:59→20:00)
[2019-04-24] MEDS: LEVOTHYROXINE SODIUM 50 MCG TABLET GT SCH (05:00)
[2019-04-24] MEDS: PANTOPRAZOLE ORAL SUSPENSION 40 MG SUSPDR.PKT GT SCH (05:00)
[2019-04-24] MEDS: BLOOD SUGAR DIAGNOSTIC 1 EACH STRIP VI SCH ×3 (05:00→21:53)
[2019-04-24] MEDS: GLUCERNA 1.2 1000ML LIQUID GT PRN (05:02)
[2019-04-24] MEDS: INSULIN GLARGINE,HUM 300 UNITS/3 ML CARTRIDGE SQ SCH ×2 (05:16→17:24)
[2019-04-24] MEDS: INSULIN REGULAR, HUMAN 300 UNIT/3 ML VIAL SQ PRN ×3 (05:17→22:00)
[2019-04-24 08:00] VITALS: BP 156/83
[2019-04-24] MEDS: PHENYTOIN 100 MG/4 ML UDC GT SCH ×2 (08:33→21:55)
[2019-04-24] MEDS: DOCUSATE SODIUM 100 MG/10 ML LIQUID UDC GT SCH ×2 (08:33→21:54)
[2019-04-24] MEDS: BISACODYL 10 MG SUPP.RECT RC SCH (08:34)
[2019-04-24] MEDS: POTASSIUM CHLORIDE 20 MEQ POWDER PACKET GT SCH (08:34)
[2019-04-24] MEDS: ACIDOPHILUS/BULGARICUS CHEW TAB GT SCH ×2 (08:34→21:56)
[2019-04-24] MEDS: COD LIVER OIL/ZINC OXIDE OINT 113 GM TUBE TOP SCH ×2 (08:34→21:57)
[2019-04-24] MEDS: HYDROGEN PEROXIDE 3% 118 ML BOTTLE TP SCH ×2 (09:00→21:19)
--- NOTE | 2019-04-24 14:34 | NUR ---
Seen and examined by Maira Rosario,no new orders noted.
[2019-04-24 20:00] VITALS: BP 136/77
[2019-04-24] MEDS: FERROUS SULFATE 330 MG/7.5 ML UDC- FOR SA ONLY GT SCH (21:56)
[2019-04-24] MEDS: ATORVASTATIN 10 MG TABLET GT SCH (21:57)
[2019-04-25] MEDS: SODIUM CHLORIDE 5% OPHT OINT 3.5 GM TUBE RIGHTEYE SCH ×6 (01:00→22:00)
[2019-04-25] MEDS: POLYVINYL ALCOHOL OPHT DROPS 15 ML BOTTLE EACHEYE SCH ×6 (04:00→20:00)
[2019-04-25] MEDS: PANTOPRAZOLE ORAL SUSPENSION 40 MG SUSPDR.PKT GT SCH (05:37)
[2019-04-25] MEDS: LEVOTHYROXINE SODIUM 50 MCG TABLET GT SCH (05:37)
[2019-04-25] MEDS: BLOOD SUGAR DIAGNOSTIC 1 EACH STRIP VI SCH ×3 (06:17→22:00)
[2019-04-25] MEDS: INSULIN GLARGINE,HUM 300 UNITS/3 ML CARTRIDGE SQ SCH ×2 (06:17→17:46)
[2019-04-25] MEDS: GLUCERNA 1.2 1000ML LIQUID GT PRN (06:18)
[2019-04-25] MEDS: INSULIN REGULAR, HUMAN 300 UNIT/3 ML VIAL SQ PRN ×3 (06:18→22:02)
--- NOTE | 2019-04-25 07:05 | NUR ---
Pt received laying in bed, semi-Miranda's, eyes open, obtunded - unable to communicate, withdraws to physical stimuli.. Pt trach: Portex 9, in place / secure with tie, no skin discoloration / irritation visible under / around trach tie.. Stoma appears normal, no redness/breakdown noted, trach site clean / dry at this time.. Continuous mechanical ventilation, vent: HT-50 with settings: A/C 14, Vt 500, PEEP +5, FiO2 35%, tolerating well, no changes made to vent settings.. Vent alarms on / audible and functioning properly at this time.. BVM / back up trach at bedside.. Vent plugged in to red emergency outlet.. No s/s of respiratory distress / S.O.B noted, will continue to monitor..
[2019-04-25 08:00] VITALS: BP 125/74
[2019-04-25] MEDS: DOCUSATE SODIUM 100 MG/10 ML LIQUID UDC GT SCH ×2 (08:58→21:59)
[2019-04-25] MEDS: POTASSIUM CHLORIDE 20 MEQ POWDER PACKET GT SCH (08:58)
[2019-04-25] MEDS: ACIDOPHILUS/BULGARICUS CHEW TAB GT SCH ×2 (08:58→21:59)
[2019-04-25] MEDS: PHENYTOIN 100 MG/4 ML UDC GT SCH ×2 (08:58→21:59)
[2019-04-25] MEDS: COD LIVER OIL/ZINC OXIDE OINT 113 GM TUBE TOP SCH ×2 (08:59→21:00)
[2019-04-25] MEDS: HYDROGEN PEROXIDE 3% 118 ML BOTTLE TP SCH ×2 (09:00→21:11)
[2019-04-25 20:00] VITALS: BP 127/76
[2019-04-25] MEDS: ATORVASTATIN 10 MG TABLET GT SCH (21:59)
[2019-04-25] MEDS: FERROUS SULFATE 330 MG/7.5 ML UDC- FOR SA ONLY GT SCH (21:59)
[2019-04-26] MEDS: SODIUM CHLORIDE 5% OPHT OINT 3.5 GM TUBE RIGHTEYE SCH ×6 (01:00→21:27)
[2019-04-26] MEDS: POLYVINYL ALCOHOL OPHT DROPS 15 ML BOTTLE EACHEYE SCH ×6 (04:00→20:00)
[2019-04-26] MEDS: LEVOTHYROXINE SODIUM 50 MCG TABLET GT SCH (05:24)
[2019-04-26] MEDS: PANTOPRAZOLE ORAL SUSPENSION 40 MG SUSPDR.PKT GT SCH (05:24)
[2019-04-26] MEDS: INSULIN GLARGINE,HUM 300 UNITS/3 ML CARTRIDGE SQ SCH ×2 (05:24→17:33)
[2019-04-26] MEDS: BLOOD SUGAR DIAGNOSTIC 1 EACH STRIP VI SCH ×3 (05:25→21:30)
[2019-04-26] MEDS: INSULIN REGULAR, HUMAN 300 UNIT/3 ML VIAL SQ PRN ×3 (05:25→21:31)
[2019-04-26 08:30] VITALS: BP 110/67
[2019-04-26] MEDS: DOCUSATE SODIUM 100 MG/10 ML LIQUID UDC GT SCH ×2 (08:46→21:25)
[2019-04-26] MEDS: PHENYTOIN 100 MG/4 ML UDC GT SCH ×2 (08:46→21:25)
[2019-04-26] MEDS: COD LIVER OIL/ZINC OXIDE OINT 113 GM TUBE TOP SCH ×2 (08:47→21:27)
[2019-04-26] MEDS: ACIDOPHILUS/BULGARICUS CHEW TAB GT SCH ×2 (08:47→21:27)
[2019-04-26] MEDS: BISACODYL 10 MG SUPP.RECT RC SCH (08:47)
[2019-04-26] MEDS: POTASSIUM CHLORIDE 20 MEQ POWDER PACKET GT SCH (08:47)
--- NOTE | 2019-04-26 12:14 | NUR ---
JORGE Deng assisted this SW with calling patient's daughter Mana to follow-up on scheduling a day/time that Mana can meet with this SW in order to review and sign patient's annual admission paperwork. Previous contact was made with Mana on 04/23/2019 and Mana had stated that she would be coming to the hospital the next day, 04/24/2019, to meet with SW, but Mana was unable to and did not contact . JORGE Deng was unable to connect with Mana, and Sowmya left her a voicemail message asking for Mana to call back in order to schedule a day/time to meet.
--- NOTE | 2019-04-26 13:05 | NUR ---
SHAUN informed by RAZIA Corrigan that patient's daughter Mana called back and stated that she will try to come in either , or Tuesday or Tuesday, in order to visit the patient and signed the annual admission paperwork. SW will prepare the annual admission paperwork, include instructions on reviewing and signing the forms, and leave them with recharger to give to Mana.
--- NOTE | 2019-04-26 16:58 | NUR ---
SHAUN prepared the annual admission paperwork, including instructions on reviewing and signing the forms, and left them with nurse discharge Sky to give to Mana if she comes in tonight to visit the patient.
[2019-04-26] MEDS: GLUCERNA 1.2 1000ML LIQUID GT PRN (17:33)
[2019-04-26 20:00] VITALS: BP 133/85
--- NOTE | 2019-04-26 20:10 | NUR ---
Received pt on HT-50 ventilator with the following settings of AC-14, Vt-500, PEEP+5, FIO2-35%, trached with Portex#9 cuffed trach, which is in the place and secure. No respiratory distress noted. Airway care done, pt responded to physical stimuli. HME changed. Resus. bag and back up trach at bedside. Vent and alarms checked and reset.
[2019-04-26] MEDS: HYDROGEN PEROXIDE 3% 118 ML BOTTLE TP SCH (21:17)
[2019-04-26] MEDS: FERROUS SULFATE 330 MG/7.5 ML UDC- FOR SA ONLY GT SCH (21:26)
[2019-04-26] MEDS: ATORVASTATIN 10 MG TABLET GT SCH (21:27)
[2019-04-27] MEDS: SODIUM CHLORIDE 5% OPHT OINT 3.5 GM TUBE RIGHTEYE SCH ×6 (01:00→21:10)
[2019-04-27] MEDS: POLYVINYL ALCOHOL OPHT DROPS 15 ML BOTTLE EACHEYE SCH ×7 (04:00→23:04)
[2019-04-27] MEDS: PANTOPRAZOLE ORAL SUSPENSION 40 MG SUSPDR.PKT GT SCH (05:23)
[2019-04-27] MEDS: BLOOD SUGAR DIAGNOSTIC 1 EACH STRIP VI SCH ×3 (05:25→21:21)
[2019-04-27] MEDS: LEVOTHYROXINE SODIUM 50 MCG TABLET GT SCH (05:25)
[2019-04-27] MEDS: INSULIN GLARGINE,HUM 300 UNITS/3 ML CARTRIDGE SQ SCH ×2 (06:23→17:30)
[2019-04-27 08:30] VITALS: BP 109/71
[2019-04-27] MEDS: DOCUSATE SODIUM 100 MG/10 ML LIQUID UDC GT SCH ×2 (08:31→21:10)
[2019-04-27] MEDS: POTASSIUM CHLORIDE 20 MEQ POWDER PACKET GT SCH (08:35)
[2019-04-27] MEDS: ACIDOPHILUS/BULGARICUS CHEW TAB GT SCH ×2 (08:35→21:10)
[2019-04-27] MEDS: PHENYTOIN 100 MG/4 ML UDC GT SCH ×2 (08:35→21:10)
[2019-04-27] MEDS: COD LIVER OIL/ZINC OXIDE OINT 113 GM TUBE TOP SCH ×2 (08:36→21:10)
[2019-04-27] MEDS: HYDROGEN PEROXIDE 3% 118 ML BOTTLE TP SCH ×2 (09:00→18:52)
[2019-04-27] MEDS: INSULIN REGULAR, HUMAN 300 UNIT/3 ML VIAL SQ PRN ×2 (14:34→21:23)
[2019-04-27] MEDS: FERROUS SULFATE 330 MG/7.5 ML UDC- FOR SA ONLY GT SCH (21:10)
[2019-04-27] MEDS: ATORVASTATIN 10 MG TABLET GT SCH (21:10)
[2019-04-27 22:15] VITALS: BP 143/77
[2019-04-28] MEDS: SODIUM CHLORIDE 5% OPHT OINT 3.5 GM TUBE RIGHTEYE SCH ×6 (00:10→21:18)
[2019-04-28] MEDS: POLYVINYL ALCOHOL OPHT DROPS 15 ML BOTTLE EACHEYE SCH ×6 (03:36→23:06)
[2019-04-28] MEDS: PANTOPRAZOLE ORAL SUSPENSION 40 MG SUSPDR.PKT GT SCH (05:38)
[2019-04-28] MEDS: BLOOD SUGAR DIAGNOSTIC 1 EACH STRIP VI SCH ×3 (05:38→21:26)
[2019-04-28] MEDS: LEVOTHYROXINE SODIUM 50 MCG TABLET GT SCH (05:38)
[2019-04-28] MEDS: INSULIN REGULAR, HUMAN 300 UNIT/3 ML VIAL SQ PRN ×3 (05:41→21:28)
[2019-04-28] MEDS: INSULIN GLARGINE,HUM 300 UNITS/3 ML CARTRIDGE SQ SCH ×2 (05:42→17:05)
[2019-04-28 08:02] VITALS: BP 105/66
[2019-04-28] MEDS: HYDROGEN PEROXIDE 3% 118 ML BOTTLE TP SCH ×2 (08:50→20:49)
[2019-04-28] MEDS: DOCUSATE SODIUM 100 MG/10 ML LIQUID UDC GT SCH ×2 (08:58→21:18)
[2019-04-28] MEDS: PHENYTOIN 100 MG/4 ML UDC GT SCH ×2 (08:58→21:18)
[2019-04-28] MEDS: ACIDOPHILUS/BULGARICUS CHEW TAB GT SCH ×2 (08:59→21:18)
[2019-04-28] MEDS: COD LIVER OIL/ZINC OXIDE OINT 113 GM TUBE TOP SCH ×2 (09:00→21:18)
[2019-04-28] MEDS: POTASSIUM CHLORIDE 20 MEQ POWDER PACKET GT SCH (09:00)
[2019-04-28] MEDS: BISACODYL 10 MG SUPP.RECT RC SCH (09:00)
[2019-04-28] MEDS: GLUCERNA 1.2 1000ML LIQUID GT PRN (16:58)
[2019-04-28] MEDS: FERROUS SULFATE 330 MG/7.5 ML UDC- FOR SA ONLY GT SCH (21:18)
[2019-04-28] MEDS: ATORVASTATIN 10 MG TABLET GT SCH (21:18)
[2019-04-28 22:10] VITALS: BP 126/78
[2019-04-29] MEDS: SODIUM CHLORIDE 5% OPHT OINT 3.5 GM TUBE RIGHTEYE SCH ×6 (01:04→20:56)
[2019-04-29] MEDS: POLYVINYL ALCOHOL OPHT DROPS 15 ML BOTTLE EACHEYE SCH ×6 (03:00→23:02)
[2019-04-29] MEDS: BLOOD SUGAR DIAGNOSTIC 1 EACH STRIP VI SCH ×3 (05:19→21:13)
[2019-04-29] MEDS: PANTOPRAZOLE ORAL SUSPENSION 40 MG SUSPDR.PKT GT SCH (05:19)
[2019-04-29] MEDS: LEVOTHYROXINE SODIUM 50 MCG TABLET GT SCH (05:19)
[2019-04-29] MEDS: INSULIN GLARGINE,HUM 300 UNITS/3 ML CARTRIDGE SQ SCH ×2 (05:21→17:07)
[2019-04-29] MEDS: INSULIN REGULAR, HUMAN 300 UNIT/3 ML VIAL SQ PRN ×3 (05:22→21:14)
[2019-04-29] MEDS: HYDROGEN PEROXIDE 3% 118 ML BOTTLE TP SCH ×2 (07:41→21:10)
[2019-04-29 08:03] VITALS: BP 117/76
[2019-04-29] MEDS: DOCUSATE SODIUM 100 MG/10 ML LIQUID UDC GT SCH ×2 (08:20→20:56)
[2019-04-29] MEDS: ACIDOPHILUS/BULGARICUS CHEW TAB GT SCH ×2 (08:21→20:56)
[2019-04-29] MEDS: POTASSIUM CHLORIDE 20 MEQ POWDER PACKET GT SCH (08:21)
[2019-04-29] MEDS: PHENYTOIN 100 MG/4 ML UDC GT SCH ×2 (08:21→20:56)
[2019-04-29] MEDS: COD LIVER OIL/ZINC OXIDE OINT 113 GM TUBE TOP SCH ×2 (08:21→20:56)
[2019-04-29] MEDS: GLUCERNA 1.2 1000ML LIQUID GT PRN (16:33)
[2019-04-29] MEDS: FERROUS SULFATE 330 MG/7.5 ML UDC- FOR SA ONLY GT SCH (20:56)
[2019-04-29] MEDS: ATORVASTATIN 10 MG TABLET GT SCH (20:56)
[2019-04-29 22:52] VITALS: BP 131/79
[2019-04-30] MEDS: SODIUM CHLORIDE 5% OPHT OINT 3.5 GM TUBE RIGHTEYE SCH ×6 (01:07→20:56)
[2019-04-30] MEDS: POLYVINYL ALCOHOL OPHT DROPS 15 ML BOTTLE EACHEYE SCH ×6 (04:15→23:49)
[2019-04-30] MEDS: PANTOPRAZOLE ORAL SUSPENSION 40 MG SUSPDR.PKT GT SCH (05:30)
[2019-04-30] MEDS: LEVOTHYROXINE SODIUM 50 MCG TABLET GT SCH (05:30)
[2019-04-30] MEDS: BLOOD SUGAR DIAGNOSTIC 1 EACH STRIP VI SCH ×3 (05:33→21:56)
[2019-04-30] MEDS: INSULIN GLARGINE,HUM 300 UNITS/3 ML CARTRIDGE SQ SCH ×2 (05:33→17:56)
[2019-04-30] MEDS: INSULIN REGULAR, HUMAN 300 UNIT/3 ML VIAL SQ PRN ×3 (05:34→22:00)
[2019-04-30 08:02] VITALS: BP 119/76
[2019-04-30] MEDS: COD LIVER OIL/ZINC OXIDE OINT 113 GM TUBE TOP SCH ×2 (08:10→20:58)
[2019-04-30] MEDS: POTASSIUM CHLORIDE 20 MEQ POWDER PACKET GT SCH (08:10)
[2019-04-30] MEDS: ACIDOPHILUS/BULGARICUS CHEW TAB GT SCH ×2 (08:10→20:55)
[2019-04-30] MEDS: PHENYTOIN 100 MG/4 ML UDC GT SCH (08:10)
[2019-04-30] MEDS: BISACODYL 10 MG SUPP.RECT RC SCH (08:10)
[2019-04-30] MEDS: DOCUSATE SODIUM 100 MG/10 ML LIQUID UDC GT SCH ×2 (08:10→20:55)
[2019-04-30] MEDS: HYDROGEN PEROXIDE 3% 118 ML BOTTLE TP SCH ×2 (09:00→18:54)
--- NOTE | 2019-04-30 10:58 | NUR ---
SW received patient's annual admission forms, signed by patient's daughter Mana on 04/28/2019. The paperwork included: Conditions of Admission, Patient Rights Acknowledgement, Documentation of Preferred Intensity of Care, Voluntary Prior Express Consent Form, Race and Ethnicity Patient Self-Identification, and the [facility] Agreement. For assessment/quarterly information, see patient's previous chart #[id number].
--- NOTE | 2019-04-30 11:14 | NUR ---
SEEN BY UMESH QUIROGA WITH NO NEW ORDER.
--- NOTE | 2019-04-30 16:25 | NUR ---
SEEN BY DR CAMARENA, WITH NEW ORDER NOTED AND CARRIED OUT.
[2019-04-30] MEDS: GLUCERNA 1.2 1000ML LIQUID GT PRN (16:42)
[2019-04-30 20:19] VITALS: BP 114/63
[2019-04-30] MEDS: FERROUS SULFATE 330 MG/7.5 ML UDC- FOR SA ONLY GT SCH (20:55)
[2019-04-30] MEDS: ATORVASTATIN 10 MG TABLET GT SCH (20:55)
[2019-05-01] MEDS: SODIUM CHLORIDE 5% OPHT OINT 3.5 GM TUBE RIGHTEYE SCH ×6 (00:06→21:45)
[2019-05-01] MEDS: POLYVINYL ALCOHOL OPHT DROPS 15 ML BOTTLE EACHEYE SCH ×5 (04:44→20:00)
[2019-05-01] MEDS: LEVOTHYROXINE SODIUM 50 MCG TABLET GT SCH (05:23)
[2019-05-01] MEDS: BLOOD SUGAR DIAGNOSTIC 1 EACH STRIP VI SCH ×3 (05:23→21:59)
[2019-05-01] MEDS: PANTOPRAZOLE ORAL SUSPENSION 40 MG SUSPDR.PKT GT SCH (05:23)
[2019-05-01] MEDS: INSULIN GLARGINE,HUM 300 UNITS/3 ML CARTRIDGE SQ SCH ×2 (05:30→17:25)
[2019-05-01] MEDS: INSULIN REGULAR, HUMAN 300 UNIT/3 ML VIAL SQ PRN ×3 (05:32→22:01)
--- NOTE | 2019-05-01 07:40 | NUR ---
PT REC'D ON [place] VENT TOLERATING CURRENT VENT SETTINGS WELL, NO DISTRESS NOTED GIVEN IN AM REPORT. PT VENT'D VIA TRACHEOSTOMY, TUBE IN PLACE PATENT AND SECURE WITH TRACH TIE. INH NEB TX'S PRN PER MD ORDER, SXN'ING TO BE DONE NEEDED. VENT ALARMS AUDIBLE, CHECKED AND RESET. BVM AND BACK-UP TRACH AT BEDSIDE.
[2019-05-01 08:26] VITALS: BP 133/83
[2019-05-01] MEDS: ACIDOPHILUS/BULGARICUS CHEW TAB GT SCH ×2 (09:05→21:45)
[2019-05-01] MEDS: POTASSIUM CHLORIDE 20 MEQ POWDER PACKET GT SCH (09:05)
[2019-05-01] MEDS: DOCUSATE SODIUM 100 MG/10 ML LIQUID UDC GT SCH ×2 (09:05→21:43)
[2019-05-01] MEDS: COD LIVER OIL/ZINC OXIDE OINT 113 GM TUBE TOP SCH ×2 (09:05→21:45)
[2019-05-01] MEDS: HYDROGEN PEROXIDE 3% 118 ML BOTTLE TP SCH ×2 (09:12→21:01)
--- NOTE | 2019-05-01 14:33 | NUR ---
INTERDISCIPLINARY PLAN OF CARE CONFERENCE was held today. Patient's daughter Mana was not able to attend the meeting. Dr. Nolan and the Interdisciplinary Team reviewed the current plan of care in detail. RN reported on patient's current medical condition and on changes in medications per Dr. Farris. No major changes in condition were reported. See RN IDT conference notes. See also all other disciplines IDT notes and physician's progress notes for additional details.
--- NOTE | 2019-05-01 18:05 | NUR ---
Pharmacy Update for Today's 05/01/19 IDT meeting VS: Temp 97.3 BP 133/80 HR 64 LABS: (from 03/20/19, no new labs) Wbc 6.2 H/H 11.1/34.8 Plt 170 Na 137 K 3.7 Cl 100 CO2 27 BUN/SCr 21/0.7 BS 191 Ca 9.1 phos 3.7 Mg 1.8 MEDICATION USE REVIEWED: > Pt not on any anti-psych or anti-seizure medications > Previously on phenytoin, neurology d/c'd on 04/30/19 after prolonged course of tapering. No seizures noted since d/c or during taper. Remains stable at this time > On moderate sliding scale insulin + 20 units Lantus AMHS, BS ranges 98-223 since last IDT > On KCl 20meq daily; last K 3.7 > Pt on Synthroid 50mcg daily. TSH on 06/20/18 was 3.595 (0.358-3.740), within therapeutic range. > PRN MED USAGE: (Dec) Tylenol for pain used x 0 Tylenol for temp used x 0 NEW ORDERS NOTED: > Phenytoin d/c'd per neurology 04/30/19 Patient reviewed and discussed in detail at today's IDT with no noted medication issues or concerns at this time. Reported recent discontinuation of phenytoin, patient now without any antiseizure medications. No further recommendations at this time, remains stable on current regimen. Will continue to follow
--- NOTE | 2019-05-01 19:59 | NUR ---
Pt received on HT-50 ventilator with the following settings of AC-14, Vt-500, PEEP+5, FIO2-35%, trached with Portex#9 cuffed trach, which is in the place and secure. No respiratory distress noted. Airway care done, pt responded to physical stimuli. HME changed. Family member were at bedside. Resus. bag and back up trach at bedside. Vent and alarms checked and reset.
[2019-05-01 20:00] VITALS: BP 138/80
[2019-05-01] MEDS: FERROUS SULFATE 330 MG/7.5 ML UDC- FOR SA ONLY GT SCH (21:44)
[2019-05-01] MEDS: ATORVASTATIN 10 MG TABLET GT SCH (21:45)
[2019-05-02] MEDS: POLYVINYL ALCOHOL OPHT DROPS 15 ML BOTTLE EACHEYE SCH ×6 (00:23→20:02)
[2019-05-02] MEDS: SODIUM CHLORIDE 5% OPHT OINT 3.5 GM TUBE RIGHTEYE SCH ×6 (00:52→21:57)
[2019-05-02] MEDS: PANTOPRAZOLE ORAL SUSPENSION 40 MG SUSPDR.PKT GT SCH (05:59)
[2019-05-02] MEDS: LEVOTHYROXINE SODIUM 50 MCG TABLET GT SCH (05:59)
[2019-05-02] MEDS: INSULIN GLARGINE,HUM 300 UNITS/3 ML CARTRIDGE SQ SCH ×2 (06:01→18:06)
[2019-05-02] MEDS: BLOOD SUGAR DIAGNOSTIC 1 EACH STRIP VI SCH ×3 (06:01→22:05)
[2019-05-02] MEDS: INSULIN REGULAR, HUMAN 300 UNIT/3 ML VIAL SQ PRN ×3 (06:04→22:08)
[2019-05-02 08:00] VITALS: BP 111/77
[2019-05-02] MEDS: ACIDOPHILUS/BULGARICUS CHEW TAB GT SCH ×2 (08:33→21:56)
[2019-05-02] MEDS: DOCUSATE SODIUM 100 MG/10 ML LIQUID UDC GT SCH ×2 (08:33→21:54)
[2019-05-02] MEDS: POTASSIUM CHLORIDE 20 MEQ POWDER PACKET GT SCH (08:33)
[2019-05-02] MEDS: BISACODYL 10 MG SUPP.RECT RC SCH (08:35)
[2019-05-02] MEDS: COD LIVER OIL/ZINC OXIDE OINT 113 GM TUBE TOP SCH ×2 (08:36→21:59)
[2019-05-02] MEDS: HYDROGEN PEROXIDE 3% 118 ML BOTTLE TP SCH ×2 (08:38→18:36)
[2019-05-02] MEDS: GLUCERNA 1.2 1000ML LIQUID GT PRN (15:51)
[2019-05-02 20:06] VITALS: BP 103/69
--- NOTE | 2019-05-02 20:40 | NUR ---
SEEN BY AND GT WAS CHANGED BY (GT#20/6ML).NO S/S OF PAIN NO BLEEDING AT GT SITE.KEEP CLEAN AND DRY.
[2019-05-02] MEDS: FERROUS SULFATE 330 MG/7.5 ML UDC- FOR SA ONLY GT SCH (21:56)
[2019-05-02] MEDS: ATORVASTATIN 10 MG TABLET GT SCH (21:56)
[2019-05-03] MEDS: POLYVINYL ALCOHOL OPHT DROPS 15 ML BOTTLE EACHEYE SCH ×6 (00:18→20:00)
[2019-05-03] MEDS: SODIUM CHLORIDE 5% OPHT OINT 3.5 GM TUBE RIGHTEYE SCH ×6 (01:00→21:49)
[2019-05-03] MEDS: PANTOPRAZOLE ORAL SUSPENSION 40 MG SUSPDR.PKT GT SCH (05:58)
[2019-05-03] MEDS: LEVOTHYROXINE SODIUM 50 MCG TABLET GT SCH (05:58)
[2019-05-03] MEDS: BLOOD SUGAR DIAGNOSTIC 1 EACH STRIP VI SCH ×3 (05:58→22:05)
[2019-05-03] MEDS: INSULIN GLARGINE,HUM 300 UNITS/3 ML CARTRIDGE SQ SCH ×2 (05:59→17:37)
[2019-05-03] MEDS: INSULIN REGULAR, HUMAN 300 UNIT/3 ML VIAL SQ PRN ×3 (06:01→22:07)
[2019-05-03] MEDS: HYDROGEN PEROXIDE 3% 118 ML BOTTLE TP SCH ×2 (07:34→18:39)
[2019-05-03 08:00] VITALS: BP 92/55
[2019-05-03] MEDS: DOCUSATE SODIUM 100 MG/10 ML LIQUID UDC GT SCH ×2 (08:08→21:48)
[2019-05-03] MEDS: POTASSIUM CHLORIDE 20 MEQ POWDER PACKET GT SCH (08:09)
[2019-05-03] MEDS: ACIDOPHILUS/BULGARICUS CHEW TAB GT SCH ×2 (08:09→21:48)
[2019-05-03] MEDS: COD LIVER OIL/ZINC OXIDE OINT 113 GM TUBE TOP SCH ×2 (08:10→21:49)
[2019-05-03] MEDS: GLUCERNA 1.2 1000ML LIQUID GT PRN (14:13)
--- NOTE | 2019-05-03 16:48 | NUR ---
SEEN BY DR. CARVER AND WITH NEW ORDERS CARRIED OUT.
[2019-05-03 20:24] VITALS: BP 141/79
[2019-05-03] MEDS: FERROUS SULFATE 330 MG/7.5 ML UDC- FOR SA ONLY GT SCH (21:48)
[2019-05-03] MEDS: ATORVASTATIN 10 MG TABLET GT SCH (21:48)
[2019-05-04] MEDS: POLYVINYL ALCOHOL OPHT DROPS 15 ML BOTTLE EACHEYE SCH ×6 (00:08→20:00)
[2019-05-04] MEDS: SODIUM CHLORIDE 5% OPHT OINT 3.5 GM TUBE RIGHTEYE SCH ×6 (01:00→21:42)
[2019-05-04] MEDS: LEVOTHYROXINE SODIUM 50 MCG TABLET GT SCH (05:54)
[2019-05-04] MEDS: PANTOPRAZOLE ORAL SUSPENSION 40 MG SUSPDR.PKT GT SCH (05:54)
[2019-05-04] MEDS: INSULIN GLARGINE,HUM 300 UNITS/3 ML CARTRIDGE SQ SCH ×2 (05:55→17:19)
[2019-05-04] MEDS: BLOOD SUGAR DIAGNOSTIC 1 EACH STRIP VI SCH ×3 (05:55→21:35)
[2019-05-04] MEDS: INSULIN REGULAR, HUMAN 300 UNIT/3 ML VIAL SQ PRN ×3 (05:56→21:37)
[2019-05-04 08:00] VITALS: BP 108/70
[2019-05-04] MEDS: BISACODYL 10 MG SUPP.RECT RC SCH (08:04)
[2019-05-04] MEDS: POTASSIUM CHLORIDE 20 MEQ POWDER PACKET GT SCH (08:04)
[2019-05-04] MEDS: ACIDOPHILUS/BULGARICUS CHEW TAB GT SCH ×2 (08:04→21:39)
[2019-05-04] MEDS: DOCUSATE SODIUM 100 MG/10 ML LIQUID UDC GT SCH ×2 (08:04→21:38)
[2019-05-04] MEDS: COD LIVER OIL/ZINC OXIDE OINT 113 GM TUBE TOP SCH ×2 (08:04→21:42)
[2019-05-04] MEDS: HYDROGEN PEROXIDE 3% 118 ML BOTTLE TP SCH ×2 (09:00→21:06)
[2019-05-04 20:08] VITALS: BP 119/72
[2019-05-04] MEDS: FERROUS SULFATE 330 MG/7.5 ML UDC- FOR SA ONLY GT SCH (21:38)
[2019-05-04] MEDS: ATORVASTATIN 10 MG TABLET GT SCH (21:40)
[2019-05-05] MEDS: POLYVINYL ALCOHOL OPHT DROPS 15 ML BOTTLE EACHEYE SCH ×6 (00:16→20:00)
[2019-05-05] MEDS: SODIUM CHLORIDE 5% OPHT OINT 3.5 GM TUBE RIGHTEYE SCH ×6 (01:00→21:56)
[2019-05-05] MEDS: GLUCERNA 1.2 1000ML LIQUID GT PRN (04:07)
[2019-05-05] MEDS: PANTOPRAZOLE ORAL SUSPENSION 40 MG SUSPDR.PKT GT SCH (05:50)
[2019-05-05] MEDS: LEVOTHYROXINE SODIUM 50 MCG TABLET GT SCH (05:50)
[2019-05-05] MEDS: INSULIN GLARGINE,HUM 300 UNITS/3 ML CARTRIDGE SQ SCH ×2 (05:51→17:51)
[2019-05-05] MEDS: BLOOD SUGAR DIAGNOSTIC 1 EACH STRIP VI SCH ×3 (05:51→22:07)
[2019-05-05] MEDS: INSULIN REGULAR, HUMAN 300 UNIT/3 ML VIAL SQ PRN ×3 (05:52→22:18)
[2019-05-05 08:00] VITALS: BP 96/61
[2019-05-05] MEDS: HYDROGEN PEROXIDE 3% 118 ML BOTTLE TP SCH ×2 (09:00→21:46)
[2019-05-05] MEDS: DOCUSATE SODIUM 100 MG/10 ML LIQUID UDC GT SCH ×2 (09:49→21:56)
[2019-05-05] MEDS: ACIDOPHILUS/BULGARICUS CHEW TAB GT SCH ×2 (09:50→21:56)
[2019-05-05] MEDS: POTASSIUM CHLORIDE 20 MEQ POWDER PACKET GT SCH (09:50)
[2019-05-05] MEDS: COD LIVER OIL/ZINC OXIDE OINT 113 GM TUBE TOP SCH ×2 (09:51→21:56)
[2019-05-05 20:14] VITALS: BP 139/75
[2019-05-05] MEDS: ATORVASTATIN 10 MG TABLET GT SCH (21:56)
[2019-05-05] MEDS: FERROUS SULFATE 330 MG/7.5 ML UDC- FOR SA ONLY GT SCH (21:56)
[2019-05-06] MEDS: SODIUM CHLORIDE 5% OPHT OINT 3.5 GM TUBE RIGHTEYE SCH ×6 (01:00→20:10)
[2019-05-06] MEDS: GLUCERNA 1.2 1000ML LIQUID GT PRN (03:46)
[2019-05-06] MEDS: POLYVINYL ALCOHOL OPHT DROPS 15 ML BOTTLE EACHEYE SCH ×6 (04:00→20:09)
[2019-05-06] MEDS: LEVOTHYROXINE SODIUM 50 MCG TABLET GT SCH (06:12)
[2019-05-06] MEDS: PANTOPRAZOLE ORAL SUSPENSION 40 MG SUSPDR.PKT GT SCH (06:12)
[2019-05-06] MEDS: INSULIN GLARGINE,HUM 300 UNITS/3 ML CARTRIDGE SQ SCH ×2 (06:14→18:19)
[2019-05-06] MEDS: INSULIN REGULAR, HUMAN 300 UNIT/3 ML VIAL SQ PRN ×3 (06:15→21:20)
[2019-05-06] MEDS: BLOOD SUGAR DIAGNOSTIC 1 EACH STRIP VI SCH ×3 (06:16→21:15)
[2019-05-06 08:00] VITALS: BP 100/62
[2019-05-06] MEDS: HYDROGEN PEROXIDE 3% 118 ML BOTTLE TP SCH ×2 (08:47→20:10)
[2019-05-06] MEDS: DOCUSATE SODIUM 100 MG/10 ML LIQUID UDC GT SCH ×2 (09:05→20:09)
[2019-05-06] MEDS: ACIDOPHILUS/BULGARICUS CHEW TAB GT SCH ×2 (09:05→20:09)
[2019-05-06] MEDS: POTASSIUM CHLORIDE 20 MEQ POWDER PACKET GT SCH (09:05)
[2019-05-06] MEDS: COD LIVER OIL/ZINC OXIDE OINT 113 GM TUBE TOP SCH ×2 (09:06→20:10)
[2019-05-06] MEDS: BISACODYL 10 MG SUPP.RECT RC SCH (09:06)
[2019-05-06] MEDS: FERROUS SULFATE 330 MG/7.5 ML UDC- FOR SA ONLY GT SCH (20:09)
[2019-05-06] MEDS: ATORVASTATIN 10 MG TABLET GT SCH (20:10)
[2019-05-06 20:18] VITALS: BP 146/81
--- NOTE | 2019-05-06 20:18 | NUR ---
Pt received on HT-50 ventilator with the following settings of AC-14, Vt-500, PEEP+5, FIO2-35%, trached with Portex#9 cuffed trach, which is in the place and secure. No distress noted. Airway care done, pt responded to physical stimuli. HME changed. Resus. bag and back up trach at bedside. Vent and alarms checked and reset.
[2019-05-07] MEDS: POLYVINYL ALCOHOL OPHT DROPS 15 ML BOTTLE EACHEYE SCH ×7 (00:43→23:04)
[2019-05-07] MEDS: SODIUM CHLORIDE 5% OPHT OINT 3.5 GM TUBE RIGHTEYE SCH ×6 (00:43→21:47)
[2019-05-07] MEDS: LEVOTHYROXINE SODIUM 50 MCG TABLET GT SCH (05:42)
[2019-05-07] MEDS: BLOOD SUGAR DIAGNOSTIC 1 EACH STRIP VI SCH ×3 (05:42→22:27)
[2019-05-07] MEDS: PANTOPRAZOLE ORAL SUSPENSION 40 MG SUSPDR.PKT GT SCH (05:42)
[2019-05-07] MEDS: INSULIN GLARGINE,HUM 300 UNITS/3 ML CARTRIDGE SQ SCH ×2 (05:44→17:22)
[2019-05-07] MEDS: INSULIN REGULAR, HUMAN 300 UNIT/3 ML VIAL SQ PRN ×3 (05:45→22:28)
[2019-05-07] MEDS: GLUCERNA 1.2 1000ML LIQUID GT PRN (06:16)
[2019-05-07 08:00] VITALS: BP 100/53
[2019-05-07] MEDS: HYDROGEN PEROXIDE 3% 118 ML BOTTLE TP SCH ×2 (08:10→21:15)
[2019-05-07] MEDS: DOCUSATE SODIUM 100 MG/10 ML LIQUID UDC GT SCH ×2 (08:55→21:45)
[2019-05-07] MEDS: ACIDOPHILUS/BULGARICUS CHEW TAB GT SCH ×2 (08:55→21:47)
[2019-05-07] MEDS: POTASSIUM CHLORIDE 20 MEQ POWDER PACKET GT SCH (08:56)
[2019-05-07] MEDS: COD LIVER OIL/ZINC OXIDE OINT 113 GM TUBE TOP SCH ×2 (08:57→21:47)
--- NOTE | 2019-05-07 11:00 | NUR ---
SEEN AND EXAMINED BY ANAID Maguire AND [place] AND DR. PADGETT AND WITH NEW ORDERS CARRIED OUT.
--- NOTE | 2019-05-07 20:12 | NUR ---
Pt received on HT-50 ventilator with the following settings of AC-14, Vt-500, PEEP+5, FIO2-35%, trached with Portex#9 cuffed trach, which is in the place and secure. No SOB noted. Airway care done, pt responded to physical stimuli. HME changed. Resus. bag and back up trach at bedside. Vent and alarms checked and reset.
[2019-05-07 20:48] VITALS: BP 127/71
[2019-05-07] MEDS: FERROUS SULFATE 330 MG/7.5 ML UDC- FOR SA ONLY GT SCH (21:45)
[2019-05-07] MEDS: ATORVASTATIN 10 MG TABLET GT SCH (21:47)
[2019-05-08] MEDS: SODIUM CHLORIDE 5% OPHT OINT 3.5 GM TUBE RIGHTEYE SCH ×6 (01:59→20:27)
[2019-05-08] MEDS: POLYVINYL ALCOHOL OPHT DROPS 15 ML BOTTLE EACHEYE SCH ×5 (03:51→20:26)
[2019-05-08] MEDS: BLOOD SUGAR DIAGNOSTIC 1 EACH STRIP VI SCH ×3 (06:38→22:15)
[2019-05-08] MEDS: PANTOPRAZOLE ORAL SUSPENSION 40 MG SUSPDR.PKT GT SCH (06:38)
[2019-05-08] MEDS: LEVOTHYROXINE SODIUM 50 MCG TABLET GT SCH (06:38)
[2019-05-08] MEDS: INSULIN GLARGINE,HUM 300 UNITS/3 ML CARTRIDGE SQ SCH ×2 (06:39→17:09)
[2019-05-08] MEDS: INSULIN REGULAR, HUMAN 300 UNIT/3 ML VIAL SQ PRN ×3 (06:41→22:16)
[2019-05-08] MEDS: GLUCERNA 1.2 1000ML LIQUID GT PRN (07:28)
[2019-05-08 08:00] VITALS: BP 105/59
[2019-05-08] MEDS: BISACODYL 10 MG SUPP.RECT RC SCH (08:26)
[2019-05-08] MEDS: POTASSIUM CHLORIDE 20 MEQ POWDER PACKET GT SCH (08:26)
[2019-05-08] MEDS: DOCUSATE SODIUM 100 MG/10 ML LIQUID UDC GT SCH ×2 (08:26→20:26)
[2019-05-08] MEDS: ACIDOPHILUS/BULGARICUS CHEW TAB GT SCH ×2 (08:26→20:26)
[2019-05-08] MEDS: COD LIVER OIL/ZINC OXIDE OINT 113 GM TUBE TOP SCH ×2 (08:27→20:27)
[2019-05-08 08:45] LABS: BASOPHILS % (AUTO) 0.3 % (0.0-2.0); EOSINOPHILS # (AUTO) 0.3 K/uL (0.0-0.7); EOSINOPHILS % (AUTO) 3.8 % (0.0-7.0); HEMATOCRIT 32.1 % (36.7-47.1); HEMOGLOBIN 10.6 g/dL (12.5-16.3); LYMPHOCYTES # (AUTO) 2.2 K/uL (20.0-40.0); LYMPHOCYTES % (AUTO) 25.2 % (20.5-51.5); MEAN CORPUSCULAR HEMOGLOBIN 28.6 uug (23.8-33.4); MEAN CORPUSCULAR HGB CONC 33 g/dL (32.5-36.3); MEAN CORPUSCULAR VOLUME 86.3 fL (73.0-96.2); MONOCYTES # (AUTO) 0.7 K/uL (2.0-10.0); NEUTROPHILS # (AUTO) 5.5 K/uL (1.8-8.9); NEUTROPHILS % (AUTO) 62.7 % (38.5-71.5); PLATELET COUNT (AUTO) 212 K/uL (152-348); RED BLOOD CELL COUNT(AUTO) 3.71 MIL/uL (4.06-5.63); WHITE BLOOD COUNT (AUTO) 8.7 K/uL (3.6-10.2)
[2019-05-08] MEDS: HYDROGEN PEROXIDE 3% 118 ML BOTTLE TP SCH ×2 (09:00→21:08)
[2019-05-08 09:24] LABS: BILIRUBIN,TOTAL 0.3 mg/dL (0.2-1.0); CREATININE 0.7 mg/dL (0.6-1.3); MAGNESIUM 1.9 mg/dL (1.8-2.4); PHOSPHOROUS 3.2 mg/dL (2.5-4.9); TOTAL PROTEIN, SERUM 7.7 g/dL (6.4-8.2)
--- NOTE | 2019-05-08 11:00 | NUR ---
Seen and examined by Maira Rosario,aware of the labs results no new orders noted.labs for tomorrow discontinue.
[2019-05-08 20:15] VITALS: BP 161/79
[2019-05-08] MEDS: ATORVASTATIN 10 MG TABLET GT SCH (20:26)
[2019-05-08] MEDS: FERROUS SULFATE 330 MG/7.5 ML UDC- FOR SA ONLY GT SCH (20:26)
[2019-05-09] MEDS: SODIUM CHLORIDE 5% OPHT OINT 3.5 GM TUBE RIGHTEYE SCH ×6 (01:12→20:09)
[2019-05-09] MEDS: GLUCERNA 1.2 1000ML LIQUID GT PRN (01:12)
--- NOTE | 2019-05-09 01:43 | NUR ---
PT ON CONT HT 50 VENT WITH PORTX # [address] AND SECURED, WITH STRONG COUGH EFFORT, SUCTIONED LIGHT PALE YELL TINGE SECRETIONS, AND SUCTION MOUTH WITH ROCIO JOHNSON, CHANGE HME, CHECK CUFF, TRACH CARE DONE. Ricci MORAP Addendum: 05/09/19 at 0145 by VENESSA MALDONADO RT Amended: Links added.
[2019-05-09] MEDS: POLYVINYL ALCOHOL OPHT DROPS 15 ML BOTTLE EACHEYE SCH ×6 (04:00→20:00)
[2019-05-09] MEDS: LEVOTHYROXINE SODIUM 50 MCG TABLET GT SCH (05:58)
[2019-05-09] MEDS: PANTOPRAZOLE ORAL SUSPENSION 40 MG SUSPDR.PKT GT SCH (05:58)
[2019-05-09] MEDS: INSULIN GLARGINE,HUM 300 UNITS/3 ML CARTRIDGE SQ SCH ×2 (06:03→18:27)
[2019-05-09] MEDS: BLOOD SUGAR DIAGNOSTIC 1 EACH STRIP VI SCH ×3 (06:03→22:05)
[2019-05-09 08:00] VITALS: BP 114/70
[2019-05-09] MEDS: HYDROGEN PEROXIDE 3% 118 ML BOTTLE TP SCH ×2 (09:00→21:49)
[2019-05-09] MEDS: DOCUSATE SODIUM 100 MG/10 ML LIQUID UDC GT SCH ×2 (09:33→20:08)
[2019-05-09] MEDS: ACIDOPHILUS/BULGARICUS CHEW TAB GT SCH ×2 (09:34→20:08)
[2019-05-09] MEDS: POTASSIUM CHLORIDE 20 MEQ POWDER PACKET GT SCH (09:36)
[2019-05-09] MEDS: COD LIVER OIL/ZINC OXIDE OINT 113 GM TUBE TOP SCH ×2 (09:38→20:09)
[2019-05-09] MEDS: INSULIN REGULAR, HUMAN 300 UNIT/3 ML VIAL SQ PRN ×2 (14:55→22:07)
--- NOTE | 2019-05-09 19:22 | NUR ---
Seen and examined by Dr Nolan,no new orders noted.
[2019-05-09 20:00] VITALS: BP 135/77
[2019-05-09] MEDS: FERROUS SULFATE 330 MG/7.5 ML UDC- FOR SA ONLY GT SCH (20:08)
[2019-05-09] MEDS: ATORVASTATIN 10 MG TABLET GT SCH (20:09)
[2019-05-10] MEDS: SODIUM CHLORIDE 5% OPHT OINT 3.5 GM TUBE RIGHTEYE SCH ×6 (01:00→21:49)
[2019-05-10] MEDS: GLUCERNA 1.2 1000ML LIQUID GT PRN (02:55)
[2019-05-10] MEDS: POLYVINYL ALCOHOL OPHT DROPS 15 ML BOTTLE EACHEYE SCH ×6 (03:51→20:00)
[2019-05-10] MEDS: PANTOPRAZOLE ORAL SUSPENSION 40 MG SUSPDR.PKT GT SCH (05:16)
[2019-05-10] MEDS: LEVOTHYROXINE SODIUM 50 MCG TABLET GT SCH (05:16)
[2019-05-10] MEDS: INSULIN GLARGINE,HUM 300 UNITS/3 ML CARTRIDGE SQ SCH ×2 (05:55→18:06)
[2019-05-10] MEDS: BLOOD SUGAR DIAGNOSTIC 1 EACH STRIP VI SCH ×3 (05:55→22:14)
[2019-05-10] MEDS: HYDROGEN PEROXIDE 3% 118 ML BOTTLE TP SCH ×2 (07:28→21:13)
[2019-05-10 08:00] VITALS: BP 116/64
[2019-05-10] MEDS: ACIDOPHILUS/BULGARICUS CHEW TAB GT SCH ×2 (08:34→21:48)
[2019-05-10] MEDS: DOCUSATE SODIUM 100 MG/10 ML LIQUID UDC GT SCH ×2 (08:34→21:48)
[2019-05-10] MEDS: POTASSIUM CHLORIDE 20 MEQ POWDER PACKET GT SCH (08:34)
[2019-05-10] MEDS: BISACODYL 10 MG SUPP.RECT RC SCH (08:35)
[2019-05-10] MEDS: COD LIVER OIL/ZINC OXIDE OINT 113 GM TUBE TOP SCH ×2 (08:35→21:49)
[2019-05-10] MEDS: INSULIN REGULAR, HUMAN 300 UNIT/3 ML VIAL SQ PRN ×2 (14:17→22:15)
[2019-05-10 20:00] VITALS: BP 142/80
[2019-05-10] MEDS: FERROUS SULFATE 330 MG/7.5 ML UDC- FOR SA ONLY GT SCH (21:48)
[2019-05-10] MEDS: ATORVASTATIN 10 MG TABLET GT SCH (21:48)
[2019-05-11] MEDS: POLYVINYL ALCOHOL OPHT DROPS 15 ML BOTTLE EACHEYE SCH ×7 (00:38→23:09)
[2019-05-11] MEDS: SODIUM CHLORIDE 5% OPHT OINT 3.5 GM TUBE RIGHTEYE SCH ×6 (01:00→20:55)
[2019-05-11] MEDS: GLUCERNA 1.2 1000ML LIQUID GT PRN ×2 (03:10→23:30)
[2019-05-11] MEDS: PANTOPRAZOLE ORAL SUSPENSION 40 MG SUSPDR.PKT GT SCH (05:04)
[2019-05-11] MEDS: LEVOTHYROXINE SODIUM 50 MCG TABLET GT SCH (05:04)
[2019-05-11] MEDS: INSULIN GLARGINE,HUM 300 UNITS/3 ML CARTRIDGE SQ SCH ×2 (05:48→17:06)
[2019-05-11] MEDS: BLOOD SUGAR DIAGNOSTIC 1 EACH STRIP VI SCH ×3 (05:49→21:17)
[2019-05-11] MEDS: INSULIN REGULAR, HUMAN 300 UNIT/3 ML VIAL SQ PRN ×3 (05:49→21:18)
[2019-05-11] MEDS: POTASSIUM CHLORIDE 20 MEQ POWDER PACKET GT SCH (08:34)
[2019-05-11] MEDS: ACIDOPHILUS/BULGARICUS CHEW TAB GT SCH ×2 (08:34→20:55)
[2019-05-11] MEDS: DOCUSATE SODIUM 100 MG/10 ML LIQUID UDC GT SCH ×2 (08:34→20:55)
[2019-05-11] MEDS: COD LIVER OIL/ZINC OXIDE OINT 113 GM TUBE TOP SCH ×2 (08:37→20:55)
[2019-05-11] MEDS: HYDROGEN PEROXIDE 3% 118 ML BOTTLE TP SCH ×2 (09:00→18:48)
[2019-05-11 11:26] VITALS: BP 146/87
[2019-05-11 20:00] VITALS: BP 116/67
[2019-05-11] MEDS: FERROUS SULFATE 330 MG/7.5 ML UDC- FOR SA ONLY GT SCH (20:55)
[2019-05-11] MEDS: ATORVASTATIN 10 MG TABLET GT SCH (20:55)
[2019-05-11] MEDS: COD LIVER OIL/ZINC OXIDE OINT 113 GM TUBE TP SCH (20:55)
[2019-05-12] MEDS: SODIUM CHLORIDE 5% OPHT OINT 3.5 GM TUBE RIGHTEYE SCH ×6 (01:00→21:16)
[2019-05-12] MEDS: POLYVINYL ALCOHOL OPHT DROPS 15 ML BOTTLE EACHEYE SCH ×6 (03:52→23:07)
[2019-05-12] MEDS: PANTOPRAZOLE ORAL SUSPENSION 40 MG SUSPDR.PKT GT SCH (05:49)
[2019-05-12] MEDS: BLOOD SUGAR DIAGNOSTIC 1 EACH STRIP VI SCH ×3 (05:49→21:16)
[2019-05-12] MEDS: LEVOTHYROXINE SODIUM 50 MCG TABLET GT SCH (05:49)
[2019-05-12] MEDS: INSULIN GLARGINE,HUM 300 UNITS/3 ML CARTRIDGE SQ SCH ×2 (05:50→17:37)
[2019-05-12] MEDS: INSULIN REGULAR, HUMAN 300 UNIT/3 ML VIAL SQ PRN ×3 (05:51→21:18)
[2019-05-12] MEDS: ACIDOPHILUS/BULGARICUS CHEW TAB GT SCH ×2 (08:41→20:57)
[2019-05-12] MEDS: DOCUSATE SODIUM 100 MG/10 ML LIQUID UDC GT SCH ×2 (08:41→20:51)
[2019-05-12] MEDS: POTASSIUM CHLORIDE 20 MEQ POWDER PACKET GT SCH (08:42)
[2019-05-12] MEDS: COD LIVER OIL/ZINC OXIDE OINT 113 GM TUBE TOP SCH ×2 (08:43→20:57)
[2019-05-12] MEDS: BISACODYL 10 MG SUPP.RECT RC SCH (08:43)
[2019-05-12] MEDS: COD LIVER OIL/ZINC OXIDE OINT 113 GM TUBE TP SCH ×2 (08:44→20:58)
[2019-05-12] MEDS: HYDROGEN PEROXIDE 3% 118 ML BOTTLE TP SCH ×2 (09:50→21:00)
[2019-05-12 12:05] VITALS: BP 134/80
[2019-05-12] MEDS: GLUCERNA 1.2 1000ML LIQUID GT PRN (18:35)
[2019-05-12 20:22] VITALS: BP 116/71
[2019-05-12] MEDS: FERROUS SULFATE 330 MG/7.5 ML UDC- FOR SA ONLY GT SCH (20:51)
[2019-05-12] MEDS: ATORVASTATIN 10 MG TABLET GT SCH (20:57)
[2019-05-13] MEDS: SODIUM CHLORIDE 5% OPHT OINT 3.5 GM TUBE RIGHTEYE SCH ×6 (00:38→20:47)
[2019-05-13] MEDS: POLYVINYL ALCOHOL OPHT DROPS 15 ML BOTTLE EACHEYE SCH ×6 (03:47→23:06)
[2019-05-13] MEDS: INSULIN GLARGINE,HUM 300 UNITS/3 ML CARTRIDGE SQ SCH ×2 (05:53→17:32)
[2019-05-13] MEDS: LEVOTHYROXINE SODIUM 50 MCG TABLET GT SCH (05:53)
[2019-05-13] MEDS: PANTOPRAZOLE ORAL SUSPENSION 40 MG SUSPDR.PKT GT SCH (05:53)
[2019-05-13] MEDS: BLOOD SUGAR DIAGNOSTIC 1 EACH STRIP VI SCH ×3 (05:54→21:30)
[2019-05-13] MEDS: INSULIN REGULAR, HUMAN 300 UNIT/3 ML VIAL SQ PRN ×3 (05:54→21:31)
[2019-05-13 08:05] VITALS: BP 95/60
[2019-05-13] MEDS: POTASSIUM CHLORIDE 20 MEQ POWDER PACKET GT SCH (08:05)
[2019-05-13] MEDS: DOCUSATE SODIUM 100 MG/10 ML LIQUID UDC GT SCH ×2 (08:05→20:47)
[2019-05-13] MEDS: ACIDOPHILUS/BULGARICUS CHEW TAB GT SCH ×2 (08:05→20:47)
[2019-05-13] MEDS: COD LIVER OIL/ZINC OXIDE OINT 113 GM TUBE TP SCH ×2 (08:06→20:47)
[2019-05-13] MEDS: COD LIVER OIL/ZINC OXIDE OINT 113 GM TUBE TOP SCH ×2 (08:06→20:47)
[2019-05-13] MEDS: HYDROGEN PEROXIDE 3% 118 ML BOTTLE TP SCH ×2 (10:00→18:39)
--- NOTE | 2019-05-13 11:00 | NUR ---
New tx ordered for L and R buttocks Excoriations,carried out.
[2019-05-13] MEDS: GLUCERNA 1.2 1000ML LIQUID GT PRN (17:41)
[2019-05-13] MEDS: FERROUS SULFATE 330 MG/7.5 ML UDC- FOR SA ONLY GT SCH (20:47)
[2019-05-13] MEDS: ATORVASTATIN 10 MG TABLET GT SCH (20:47)
[2019-05-13 20:49] VITALS: BP 121/75
[2019-05-14] MEDS: SODIUM CHLORIDE 5% OPHT OINT 3.5 GM TUBE RIGHTEYE SCH ×6 (00:35→20:08)
[2019-05-14] MEDS: COD LIVER OIL/ZINC OXIDE OINT 113 GM TUBE TOP SCH ×5 (02:03→20:10)
[2019-05-14] MEDS: POLYVINYL ALCOHOL OPHT DROPS 15 ML BOTTLE EACHEYE SCH ×5 (03:30→20:07)
[2019-05-14] MEDS: PANTOPRAZOLE ORAL SUSPENSION 40 MG SUSPDR.PKT GT SCH (05:51)
[2019-05-14] MEDS: LEVOTHYROXINE SODIUM 50 MCG TABLET GT SCH (05:51)
[2019-05-14] MEDS: BLOOD SUGAR DIAGNOSTIC 1 EACH STRIP VI SCH ×3 (05:51→21:58)
[2019-05-14] MEDS: INSULIN GLARGINE,HUM 300 UNITS/3 ML CARTRIDGE SQ SCH ×2 (05:51→17:10)
[2019-05-14] MEDS: INSULIN REGULAR, HUMAN 300 UNIT/3 ML VIAL SQ PRN ×3 (05:52→22:01)
[2019-05-14 08:00] VITALS: BP 106/67
--- NOTE | 2019-05-14 08:05 | NUR ---
PT RECEIVED ON CONTINUOUS VENT TOLERATING CURRENT VENT SETTINGS WELL, NO DISTRESS NOTED AT THIS TIME . TRACH CARE DONE. TRACH TUBE IN PLACE PATENT AND SECURE WITH TRACH TIE. SUCTION PRN. VENT ALARMS AUDIBLE, CHECKED AND RESET. AMBU BAG AT BEDSIDE AND BACK-UP TRACH AT BEDSIDE. WILL CONTINUE TO MONITOR.
[2019-05-14] MEDS: DOCUSATE SODIUM 100 MG/10 ML LIQUID UDC GT SCH ×2 (08:12→20:07)
[2019-05-14] MEDS: ACIDOPHILUS/BULGARICUS CHEW TAB GT SCH ×2 (08:12→20:08)
[2019-05-14] MEDS: POTASSIUM CHLORIDE 20 MEQ POWDER PACKET GT SCH (08:12)
[2019-05-14] MEDS: COD LIVER OIL/ZINC OXIDE OINT 113 GM TUBE TP SCH ×2 (08:13→20:08)
[2019-05-14] MEDS: BISACODYL 10 MG SUPP.RECT RC SCH (08:13)
[2019-05-14] MEDS: HYDROGEN PEROXIDE 3% 118 ML BOTTLE TP SCH ×2 (08:40→20:08)
[2019-05-14] MEDS: GLUCERNA 1.2 1000ML LIQUID GT PRN (17:16)
[2019-05-14] MEDS: FERROUS SULFATE 330 MG/7.5 ML UDC- FOR SA ONLY GT SCH (20:08)
[2019-05-14] MEDS: ATORVASTATIN 10 MG TABLET GT SCH (20:08)
[2019-05-14 20:11] VITALS: BP 107/65
[2019-05-15] MEDS: POLYVINYL ALCOHOL OPHT DROPS 15 ML BOTTLE EACHEYE SCH ×6 (00:32→20:00)
[2019-05-15] MEDS: SODIUM CHLORIDE 5% OPHT OINT 3.5 GM TUBE RIGHTEYE SCH ×6 (00:58→21:23)
[2019-05-15] MEDS: LEVOTHYROXINE SODIUM 50 MCG TABLET GT SCH (05:07)
[2019-05-15] MEDS: PANTOPRAZOLE ORAL SUSPENSION 40 MG SUSPDR.PKT GT SCH (05:07)
[2019-05-15] MEDS: BLOOD SUGAR DIAGNOSTIC 1 EACH STRIP VI SCH ×3 (05:08→21:29)
[2019-05-15] MEDS: INSULIN GLARGINE,HUM 300 UNITS/3 ML CARTRIDGE SQ SCH ×2 (05:08→17:31)
[2019-05-15] MEDS: INSULIN REGULAR, HUMAN 300 UNIT/3 ML VIAL SQ PRN ×3 (05:09→21:29)
[2019-05-15 08:00] VITALS: BP 126/72
[2019-05-15] MEDS: DOCUSATE SODIUM 100 MG/10 ML LIQUID UDC GT SCH ×2 (08:35→21:21)
[2019-05-15] MEDS: ACIDOPHILUS/BULGARICUS CHEW TAB GT SCH ×2 (08:38→21:22)
[2019-05-15] MEDS: COD LIVER OIL/ZINC OXIDE OINT 113 GM TUBE TP SCH ×2 (08:39→21:24)
[2019-05-15] MEDS: COD LIVER OIL/ZINC OXIDE OINT 113 GM TUBE TOP SCH ×4 (08:39→21:24)
[2019-05-15] MEDS: POTASSIUM CHLORIDE 20 MEQ POWDER PACKET GT SCH (08:39)
[2019-05-15] MEDS: HYDROGEN PEROXIDE 3% 118 ML BOTTLE TP SCH ×2 (09:48→21:31)
[2019-05-15 20:28] VITALS: BP 130/77
--- NOTE | 2019-05-15 20:32 | NUR ---
Received pt awake, on HT-50 ventilator with the following settings of AC-14, Vt-500, PEEP+5, FIO2-35%, trached with Portex#9 cuffed trach, which is in the place and secure. No s/s of respiratory distress noted. Airway care done, pt responded to physical stimuli. HME changed. Resus. bag and back up trach at bedside. Vent and alarms checked and reset.
[2019-05-15] MEDS: FERROUS SULFATE 330 MG/7.5 ML UDC- FOR SA ONLY GT SCH (21:21)
[2019-05-15] MEDS: ATORVASTATIN 10 MG TABLET GT SCH (21:23)
[2019-05-16] MEDS: POLYVINYL ALCOHOL OPHT DROPS 15 ML BOTTLE EACHEYE SCH ×7 (00:10→23:33)
[2019-05-16] MEDS: SODIUM CHLORIDE 5% OPHT OINT 3.5 GM TUBE RIGHTEYE SCH ×6 (01:00→21:00)
[2019-05-16] MEDS: GLUCERNA 1.2 1000ML LIQUID GT PRN (02:00)
[2019-05-16] MEDS: PANTOPRAZOLE ORAL SUSPENSION 40 MG SUSPDR.PKT GT SCH (05:20)
[2019-05-16] MEDS: BLOOD SUGAR DIAGNOSTIC 1 EACH STRIP VI SCH ×3 (05:21→22:11)
[2019-05-16] MEDS: INSULIN GLARGINE,HUM 300 UNITS/3 ML CARTRIDGE SQ SCH ×2 (05:21→17:57)
[2019-05-16] MEDS: INSULIN REGULAR, HUMAN 300 UNIT/3 ML VIAL SQ PRN ×3 (05:23→22:13)
[2019-05-16] MEDS: LEVOTHYROXINE SODIUM 50 MCG TABLET GT SCH (05:23)
[2019-05-16 08:00] VITALS: BP 126/86
[2019-05-16] MEDS: DOCUSATE SODIUM 100 MG/10 ML LIQUID UDC GT SCH ×2 (08:44→21:00)
[2019-05-16] MEDS: ACIDOPHILUS/BULGARICUS CHEW TAB GT SCH ×2 (08:45→21:00)
[2019-05-16] MEDS: COD LIVER OIL/ZINC OXIDE OINT 113 GM TUBE TOP SCH ×4 (08:46→21:00)
[2019-05-16] MEDS: POTASSIUM CHLORIDE 20 MEQ POWDER PACKET GT SCH (08:46)
[2019-05-16] MEDS: BISACODYL 10 MG SUPP.RECT RC SCH (08:46)
[2019-05-16] MEDS: COD LIVER OIL/ZINC OXIDE OINT 113 GM TUBE TP SCH ×2 (08:47→21:00)
[2019-05-16] MEDS: HYDROGEN PEROXIDE 3% 118 ML BOTTLE TP SCH ×2 (08:55→18:39)
[2019-05-16] MEDS: ATORVASTATIN 10 MG TABLET GT SCH (21:00)
[2019-05-16] MEDS: FERROUS SULFATE 330 MG/7.5 ML UDC- FOR SA ONLY GT SCH (21:00)
[2019-05-16 22:42] VITALS: BP 145/85
[2019-05-17] MEDS: SODIUM CHLORIDE 5% OPHT OINT 3.5 GM TUBE RIGHTEYE SCH ×6 (01:58→21:23)
[2019-05-17] MEDS: GLUCERNA 1.2 1000ML LIQUID GT PRN (01:58)
[2019-05-17] MEDS: POLYVINYL ALCOHOL OPHT DROPS 15 ML BOTTLE EACHEYE SCH ×5 (03:51→20:11)
[2019-05-17] MEDS: BLOOD SUGAR DIAGNOSTIC 1 EACH STRIP VI SCH ×3 (05:21→22:54)
[2019-05-17] MEDS: LEVOTHYROXINE SODIUM 50 MCG TABLET GT SCH (05:21)
[2019-05-17] MEDS: PANTOPRAZOLE ORAL SUSPENSION 40 MG SUSPDR.PKT GT SCH (05:21)
[2019-05-17] MEDS: INSULIN GLARGINE,HUM 300 UNITS/3 ML CARTRIDGE SQ SCH ×2 (05:22→17:42)
[2019-05-17] MEDS: INSULIN REGULAR, HUMAN 300 UNIT/3 ML VIAL SQ PRN ×3 (05:23→22:56)
[2019-05-17] MEDS: HYDROGEN PEROXIDE 3% 118 ML BOTTLE TP SCH ×2 (07:23→21:04)
[2019-05-17] MEDS: ACIDOPHILUS/BULGARICUS CHEW TAB GT SCH ×2 (08:47→21:21)
[2019-05-17] MEDS: POTASSIUM CHLORIDE 20 MEQ POWDER PACKET GT SCH (08:47)
[2019-05-17] MEDS: DOCUSATE SODIUM 100 MG/10 ML LIQUID UDC GT SCH ×2 (08:47→21:21)
[2019-05-17] MEDS: COD LIVER OIL/ZINC OXIDE OINT 113 GM TUBE TOP SCH ×4 (08:48→21:24)
[2019-05-17] MEDS: COD LIVER OIL/ZINC OXIDE OINT 113 GM TUBE TP SCH ×2 (08:48→21:24)
[2019-05-17 10:49] VITALS: BP 125/77
--- NOTE | 2019-05-17 14:36 | NUR ---
SEEN BY DR. JUAN HEREDIA WITH NEW ORDERS CARRIED OUT.
[2019-05-17 20:08] VITALS: BP 135/79
--- NOTE | 2019-05-17 20:10 | NUR ---
PT RECEIVED ON CONTINUOUS VENT, TRACH TUBE IN PLACE PATENT AND SECURE WITH TRACH TIE. TRACH CARE DONE. AMBU BAG AND BACK UP TRACH AT BEDSIDE. TOLERATING CURRENT VENT SETTINGS WELL, NO DISTRESS NOTED AT THIS TIME . SUCTION PRN. VENT ALARMS AUDIBLE, CHECKED AND RESET. WILL CONTINUE TO MONITOR.
[2019-05-17] MEDS: FERROUS SULFATE 330 MG/7.5 ML UDC- FOR SA ONLY GT SCH (21:21)
[2019-05-17] MEDS: ATORVASTATIN 10 MG TABLET GT SCH (21:23)
[2019-05-18] MEDS: POLYVINYL ALCOHOL OPHT DROPS 15 ML BOTTLE EACHEYE SCH ×7 (00:02→23:56)
[2019-05-18] MEDS: SODIUM CHLORIDE 5% OPHT OINT 3.5 GM TUBE RIGHTEYE SCH ×6 (00:03→21:04)
[2019-05-18] MEDS: GLUCERNA 1.2 1000ML LIQUID GT PRN ×2 (01:00→22:34)
[2019-05-18] MEDS: LEVOTHYROXINE SODIUM 50 MCG TABLET GT SCH (06:15)
[2019-05-18] MEDS: INSULIN REGULAR, HUMAN 300 UNIT/3 ML VIAL SQ PRN ×3 (06:15→21:18)
[2019-05-18] MEDS: BLOOD SUGAR DIAGNOSTIC 1 EACH STRIP VI SCH ×3 (06:15→21:15)
[2019-05-18] MEDS: PANTOPRAZOLE ORAL SUSPENSION 40 MG SUSPDR.PKT GT SCH (06:15)
[2019-05-18] MEDS: INSULIN GLARGINE,HUM 300 UNITS/3 ML CARTRIDGE SQ SCH ×2 (06:19→17:05)
[2019-05-18 07:31] LABS: BASOPHILS % (AUTO) 0.3 % (0.0-2.0); EOSINOPHILS # (AUTO) 0.4 K/uL (0.0-0.7); EOSINOPHILS % (AUTO) 4.4 % (0.0-7.0); HEMATOCRIT 34.3 % (36.7-47.1); HEMOGLOBIN 11.3 g/dL (12.5-16.3); LYMPHOCYTES # (AUTO) 2.2 K/uL (20.0-40.0); LYMPHOCYTES % (AUTO) 26.8 % (20.5-51.5); MEAN CORPUSCULAR HEMOGLOBIN 28.5 uug (23.8-33.4); MEAN CORPUSCULAR HGB CONC 33 g/dL (32.5-36.3); MEAN CORPUSCULAR VOLUME 85.9 fL (73.0-96.2); MONOCYTES # (AUTO) 0.7 K/uL (2.0-10.0); MONOCYTES % (AUTO) 8.5 % (0.0-11.0); NEUTROPHILS # (AUTO) 4.8 K/uL (1.8-8.9); PLATELET COUNT (AUTO) 218 K/uL (152-348); RED BLOOD CELL COUNT(AUTO) 3.99 MIL/uL (4.06-5.63)
[2019-05-18 08:05] LABS: CARBON DIOXIDE 27 mmol/L (21-32); CHLORIDE 102 mmol/L (98-107); CREATININE 0.6 mg/dL (0.6-1.3); GLUCOSE 116 mg/dL (74-106); MAGNESIUM 2.1 mg/dL (1.8-2.4); PHOSPHOROUS 3.6 mg/dL (2.5-4.9); POTASSIUM 3.7 mmol/L (3.5-5.1); UREA NITROGEN, BLOOD 24 mg/dL (7-18)
[2019-05-18] MEDS: BISACODYL 10 MG SUPP.RECT RC SCH (08:50)
[2019-05-18] MEDS: POTASSIUM CHLORIDE 20 MEQ POWDER PACKET GT SCH (08:50)
[2019-05-18] MEDS: COD LIVER OIL/ZINC OXIDE OINT 113 GM TUBE TOP SCH ×4 (08:50→21:02)
[2019-05-18] MEDS: DOCUSATE SODIUM 100 MG/10 ML LIQUID UDC GT SCH ×2 (08:50→20:58)
[2019-05-18] MEDS: COD LIVER OIL/ZINC OXIDE OINT 113 GM TUBE TP SCH (08:50)
[2019-05-18] MEDS: ACIDOPHILUS/BULGARICUS CHEW TAB GT SCH ×2 (08:50→21:02)
[2019-05-18] MEDS: HYDROGEN PEROXIDE 3% 118 ML BOTTLE TP SCH ×2 (09:00→21:03)
[2019-05-18 11:23] LABS: IRON, SERUM 57 ug/dL (50-175)
[2019-05-18 13:44] VITALS: BP 109/73
[2019-05-18] MEDS: FERROUS SULFATE 330 MG/7.5 ML UDC- FOR SA ONLY GT SCH (21:00)
[2019-05-18] MEDS: ATORVASTATIN 10 MG TABLET GT SCH (21:02)
[2019-05-18 22:44] VITALS: BP 153/86
[2019-05-19] MEDS: POLYVINYL ALCOHOL OPHT DROPS 15 ML BOTTLE EACHEYE SCH ×5 (04:01→20:00)
[2019-05-19] MEDS: SODIUM CHLORIDE 5% OPHT OINT 3.5 GM TUBE RIGHTEYE SCH ×6 (04:02→21:32)
[2019-05-19] MEDS: PANTOPRAZOLE ORAL SUSPENSION 40 MG SUSPDR.PKT GT SCH (05:06)
[2019-05-19] MEDS: BLOOD SUGAR DIAGNOSTIC 1 EACH STRIP VI SCH ×3 (05:07→22:03)
[2019-05-19] MEDS: LEVOTHYROXINE SODIUM 50 MCG TABLET GT SCH (05:07)
[2019-05-19] MEDS: INSULIN GLARGINE,HUM 300 UNITS/3 ML CARTRIDGE SQ SCH ×2 (05:11→17:43)
[2019-05-19] MEDS: DOCUSATE SODIUM 100 MG/10 ML LIQUID UDC GT SCH ×2 (08:21→21:29)
[2019-05-19] MEDS: ACIDOPHILUS/BULGARICUS CHEW TAB GT SCH ×2 (08:22→21:29)
[2019-05-19] MEDS: POTASSIUM CHLORIDE 20 MEQ POWDER PACKET GT SCH (08:22)
[2019-05-19] MEDS: COD LIVER OIL/ZINC OXIDE OINT 113 GM TUBE TOP SCH ×4 (08:24→21:32)
[2019-05-19] MEDS: HYDROGEN PEROXIDE 3% 118 ML BOTTLE TP SCH ×2 (08:49→21:12)
[2019-05-19 11:11] VITALS: BP 117/74
[2019-05-19 11:14] VITALS: BP 119/57
[2019-05-19] MEDS: INSULIN REGULAR, HUMAN 300 UNIT/3 ML VIAL SQ PRN ×2 (13:54→22:05)
[2019-05-19] MEDS: GLUCERNA 1.2 1000ML LIQUID GT PRN (17:47)
[2019-05-19] MEDS: FERROUS SULFATE 330 MG/7.5 ML UDC- FOR SA ONLY GT SCH (21:29)
[2019-05-19] MEDS: ATORVASTATIN 10 MG TABLET GT SCH (21:32)
[2019-05-19 23:02] VITALS: BP 145/81
[2019-05-20] MEDS: POLYVINYL ALCOHOL OPHT DROPS 15 ML BOTTLE EACHEYE SCH ×7 (00:48→23:55)
[2019-05-20] MEDS: SODIUM CHLORIDE 5% OPHT OINT 3.5 GM TUBE RIGHTEYE SCH ×6 (01:06→21:30)
[2019-05-20] MEDS: LEVOTHYROXINE SODIUM 50 MCG TABLET GT SCH (05:47)
[2019-05-20] MEDS: PANTOPRAZOLE ORAL SUSPENSION 40 MG SUSPDR.PKT GT SCH (05:47)
[2019-05-20] MEDS: INSULIN GLARGINE,HUM 300 UNITS/3 ML CARTRIDGE SQ SCH ×2 (05:48→17:16)
[2019-05-20] MEDS: BLOOD SUGAR DIAGNOSTIC 1 EACH STRIP VI SCH ×3 (05:49→22:05)
[2019-05-20] MEDS: INSULIN REGULAR, HUMAN 300 UNIT/3 ML VIAL SQ PRN ×3 (05:50→22:06)
[2019-05-20 08:00] VITALS: BP 114/78
[2019-05-20] MEDS: HYDROGEN PEROXIDE 3% 118 ML BOTTLE TP SCH ×2 (08:28→20:58)
[2019-05-20] MEDS: COD LIVER OIL/ZINC OXIDE OINT 113 GM TUBE TOP SCH ×4 (09:04→21:31)
[2019-05-20] MEDS: ACIDOPHILUS/BULGARICUS CHEW TAB GT SCH ×2 (09:04→21:29)
[2019-05-20] MEDS: BISACODYL 10 MG SUPP.RECT RC SCH (09:04)
[2019-05-20] MEDS: DOCUSATE SODIUM 100 MG/10 ML LIQUID UDC GT SCH ×2 (09:04→21:29)
[2019-05-20] MEDS: POTASSIUM CHLORIDE 20 MEQ POWDER PACKET GT SCH (09:04)
[2019-05-20] MEDS: FERROUS SULFATE 330 MG/7.5 ML UDC- FOR SA ONLY GT SCH (21:29)
[2019-05-20] MEDS: ATORVASTATIN 10 MG TABLET GT SCH (21:30)
[2019-05-20 23:00] VITALS: BP 146/87
[2019-05-21] MEDS: SODIUM CHLORIDE 5% OPHT OINT 3.5 GM TUBE RIGHTEYE SCH ×6 (01:18→20:48)
[2019-05-21] MEDS: POLYVINYL ALCOHOL OPHT DROPS 15 ML BOTTLE EACHEYE SCH ×5 (04:27→20:45)
[2019-05-21] MEDS: LEVOTHYROXINE SODIUM 50 MCG TABLET GT SCH (05:02)
[2019-05-21] MEDS: PANTOPRAZOLE ORAL SUSPENSION 40 MG SUSPDR.PKT GT SCH (05:02)
[2019-05-21] MEDS: BLOOD SUGAR DIAGNOSTIC 1 EACH STRIP VI SCH ×3 (05:02→22:00)
[2019-05-21] MEDS: INSULIN REGULAR, HUMAN 300 UNIT/3 ML VIAL SQ PRN ×3 (05:49→23:07)
[2019-05-21] MEDS: INSULIN GLARGINE,HUM 300 UNITS/3 ML CARTRIDGE SQ SCH ×2 (05:50→17:56)
[2019-05-21 08:00] VITALS: BP 118/68
[2019-05-21] MEDS: HYDROGEN PEROXIDE 3% 118 ML BOTTLE TP SCH ×2 (08:15→20:53)
[2019-05-21] MEDS: DOCUSATE SODIUM 100 MG/10 ML LIQUID UDC GT SCH ×2 (08:22→20:45)
[2019-05-21] MEDS: POTASSIUM CHLORIDE 20 MEQ POWDER PACKET GT SCH (08:23)
[2019-05-21] MEDS: ACIDOPHILUS/BULGARICUS CHEW TAB GT SCH ×2 (08:23→20:46)
[2019-05-21] MEDS: COD LIVER OIL/ZINC OXIDE OINT 113 GM TUBE TOP SCH ×4 (08:23→20:49)
[2019-05-21 20:08] VITALS: BP 139/84
[2019-05-21] MEDS: FERROUS SULFATE 330 MG/7.5 ML UDC- FOR SA ONLY GT SCH (20:45)
[2019-05-21] MEDS: ATORVASTATIN 10 MG TABLET GT SCH (20:46)
[2019-05-22] MEDS: POLYVINYL ALCOHOL OPHT DROPS 15 ML BOTTLE EACHEYE SCH ×6 (00:09→20:27)
[2019-05-22] MEDS: SODIUM CHLORIDE 5% OPHT OINT 3.5 GM TUBE RIGHTEYE SCH ×6 (01:00→20:31)
[2019-05-22] MEDS: PANTOPRAZOLE ORAL SUSPENSION 40 MG SUSPDR.PKT GT SCH (05:23)
[2019-05-22] MEDS: BLOOD SUGAR DIAGNOSTIC 1 EACH STRIP VI SCH ×3 (05:23→21:51)
[2019-05-22] MEDS: LEVOTHYROXINE SODIUM 50 MCG TABLET GT SCH (05:23)
[2019-05-22] MEDS: INSULIN REGULAR, HUMAN 300 UNIT/3 ML VIAL SQ PRN ×3 (05:25→22:00)
[2019-05-22] MEDS: INSULIN GLARGINE,HUM 300 UNITS/3 ML CARTRIDGE SQ SCH ×2 (05:26→17:33)
[2019-05-22] MEDS: GLUCERNA 1.2 1000ML LIQUID GT PRN (07:08)
[2019-05-22 08:30] VITALS: BP 121/76
[2019-05-22] MEDS: DOCUSATE SODIUM 100 MG/10 ML LIQUID UDC GT SCH ×2 (08:41→20:27)
[2019-05-22] MEDS: BISACODYL 10 MG SUPP.RECT RC SCH (08:41)
[2019-05-22] MEDS: COD LIVER OIL/ZINC OXIDE OINT 113 GM TUBE TOP SCH ×4 (08:41→20:31)
[2019-05-22] MEDS: POTASSIUM CHLORIDE 20 MEQ POWDER PACKET GT SCH (08:41)
[2019-05-22] MEDS: ACIDOPHILUS/BULGARICUS CHEW TAB GT SCH ×2 (08:41→20:27)
[2019-05-22] MEDS: HYDROGEN PEROXIDE 3% 118 ML BOTTLE TP SCH ×2 (09:15→21:08)
[2019-05-22] MEDS: FERROUS SULFATE 330 MG/7.5 ML UDC- FOR SA ONLY GT SCH (20:27)
[2019-05-22] MEDS: ATORVASTATIN 10 MG TABLET GT SCH (20:31)
[2019-05-22 20:43] VITALS: BP 134/79
[2019-05-23] MEDS: SODIUM CHLORIDE 5% OPHT OINT 3.5 GM TUBE RIGHTEYE SCH ×6 (01:09→21:40)
[2019-05-23] MEDS: GLUCERNA 1.2 1000ML LIQUID GT PRN ×2 (01:50→07:06)
[2019-05-23] MEDS: POLYVINYL ALCOHOL OPHT DROPS 15 ML BOTTLE EACHEYE SCH ×7 (04:11→23:25)
[2019-05-23] MEDS: PANTOPRAZOLE ORAL SUSPENSION 40 MG SUSPDR.PKT GT SCH (05:09)
[2019-05-23] MEDS: LEVOTHYROXINE SODIUM 50 MCG TABLET GT SCH (05:09)
[2019-05-23] MEDS: BLOOD SUGAR DIAGNOSTIC 1 EACH STRIP VI SCH ×3 (05:09→22:00)
[2019-05-23] MEDS: INSULIN REGULAR, HUMAN 300 UNIT/3 ML VIAL SQ PRN ×3 (06:21→23:24)
[2019-05-23] MEDS: INSULIN GLARGINE,HUM 300 UNITS/3 ML CARTRIDGE SQ SCH ×2 (06:22→18:33)
[2019-05-23 08:00] VITALS: BP 120/70
[2019-05-23] MEDS: DOCUSATE SODIUM 100 MG/10 ML LIQUID UDC GT SCH ×2 (08:47→21:40)
[2019-05-23] MEDS: ACIDOPHILUS/BULGARICUS CHEW TAB GT SCH ×2 (08:47→21:40)
[2019-05-23] MEDS: POTASSIUM CHLORIDE 20 MEQ POWDER PACKET GT SCH (08:47)
[2019-05-23] MEDS: COD LIVER OIL/ZINC OXIDE OINT 113 GM TUBE TOP SCH ×4 (08:47→21:40)
[2019-05-23] MEDS: HYDROGEN PEROXIDE 3% 118 ML BOTTLE TP SCH ×2 (09:45→21:36)
--- NOTE | 2019-05-23 20:00 | NUR ---
VSS 97.0-54-14 BP 137/76. SATS 100%. PATIENT IS TRACHED TO VENT: AC=14, AS=390, FIO2=30%, PEEP=5. GTUBE INTACT AND PATENT FOR GLUCERNA 1.2 @ 60 CC/HOUR-RESIDUAL 2CC--FEEDING CONTINUES. PATIENT HAS A SUPRAPUBIC CATH FOR QUANTITY SUFFICIENT OF A SLIGHTLY CLOUDY YELLOW URINE. SKIN TACT. NO SIGNS OF DISTRESS. SO FAR, PATIENT HAS NOT MADE GOOD EYE TO EYE CONTACT WITH NURSE. ASSESSMENT IS ONGOING.
[2019-05-23 20:48] VITALS: BP 137/76
--- NOTE | 2019-05-23 21:37 | NUR ---
Pt received on HT 50 vent with ordered settings and no SOB noted. Trach is secure adn patent at midline. Sxn'd small amounts of pale white thick secretions. No complications. Alarms are on and audible. Spare trach/ambubag at bedside. Will continue to monitor throughout shift.
[2019-05-23] MEDS: FERROUS SULFATE 330 MG/7.5 ML UDC- FOR SA ONLY GT SCH (21:40)
[2019-05-23] MEDS: ATORVASTATIN 10 MG TABLET GT SCH (21:40)
--- NOTE | 2019-05-24 | NUR ---
BEDTIME TLEIDKESB=779 MG/DL--COVERED WITH 3 UNITS OF REGULAR INSULIN SQ. NO CHANGES IN CONDITION. NO SIGNS OF DISTRESS.
[2019-05-24] MEDS: SODIUM CHLORIDE 5% OPHT OINT 3.5 GM TUBE RIGHTEYE SCH ×6 (01:12→21:17)
[2019-05-24] MEDS: POLYVINYL ALCOHOL OPHT DROPS 15 ML BOTTLE EACHEYE SCH ×5 (04:00→20:00)
[2019-05-24] MEDS: PANTOPRAZOLE ORAL SUSPENSION 40 MG SUSPDR.PKT GT SCH (06:05)
[2019-05-24] MEDS: LEVOTHYROXINE SODIUM 50 MCG TABLET GT SCH (06:06)
[2019-05-24] MEDS: BLOOD SUGAR DIAGNOSTIC 1 EACH STRIP VI SCH ×3 (06:07→21:27)
[2019-05-24] MEDS: INSULIN GLARGINE,HUM 300 UNITS/3 ML CARTRIDGE SQ SCH ×2 (06:08→17:56)
[2019-05-24] MEDS: INSULIN REGULAR, HUMAN 300 UNIT/3 ML VIAL SQ PRN ×3 (06:10→21:31)
[2019-05-24 08:00] VITALS: BP 130/67
[2019-05-24] MEDS: DOCUSATE SODIUM 100 MG/10 ML LIQUID UDC GT SCH ×2 (08:20→21:16)
[2019-05-24] MEDS: ACIDOPHILUS/BULGARICUS CHEW TAB GT SCH ×2 (08:21→21:16)
[2019-05-24] MEDS: BISACODYL 10 MG SUPP.RECT RC SCH (08:22)
[2019-05-24] MEDS: COD LIVER OIL/ZINC OXIDE OINT 113 GM TUBE TOP SCH ×4 (08:22→21:17)
[2019-05-24] MEDS: POTASSIUM CHLORIDE 20 MEQ POWDER PACKET GT SCH (08:22)
[2019-05-24] MEDS: HYDROGEN PEROXIDE 3% 118 ML BOTTLE TP SCH ×2 (09:53→21:18)
[2019-05-24] MEDS: GLUCERNA 1.2 1000ML LIQUID GT PRN (17:56)
[2019-05-24 20:09] VITALS: BP 139/76
--- NOTE | 2019-05-24 20:20 | NUR ---
PT RECEIVED ON CONTINUOUS VENT, TRACH TUBE IN PLACE PATENT AND SECURE WITH TRACH TIE. AMBU BAG AND BACK UP TRACH AT BEDSIDE. TRACH CARE DONE. TOLERATING CURRENT VENT SETTINGS WELL, NO DISTRESS NOTED AT THIS TIME . SUCTION PRN. VENT ALARMS AUDIBLE, CHECKED AND RESET. WILL CONTINUE TO MONITOR.
[2019-05-24] MEDS: FERROUS SULFATE 330 MG/7.5 ML UDC- FOR SA ONLY GT SCH (21:16)
[2019-05-24] MEDS: ATORVASTATIN 10 MG TABLET GT SCH (21:17)
[2019-05-25] MEDS: POLYVINYL ALCOHOL OPHT DROPS 15 ML BOTTLE EACHEYE SCH ×6 (00:16→20:00)
[2019-05-25] MEDS: SODIUM CHLORIDE 5% OPHT OINT 3.5 GM TUBE RIGHTEYE SCH ×6 (00:17→21:23)
[2019-05-25] MEDS: LEVOTHYROXINE SODIUM 50 MCG TABLET GT SCH (05:46)
[2019-05-25] MEDS: PANTOPRAZOLE ORAL SUSPENSION 40 MG SUSPDR.PKT GT SCH (05:46)
[2019-05-25] MEDS: INSULIN GLARGINE,HUM 300 UNITS/3 ML CARTRIDGE SQ SCH ×2 (05:49→17:13)
[2019-05-25] MEDS: BLOOD SUGAR DIAGNOSTIC 1 EACH STRIP VI SCH ×3 (05:51→21:34)
[2019-05-25] MEDS: ACIDOPHILUS/BULGARICUS CHEW TAB GT SCH ×2 (08:02→21:23)
[2019-05-25] MEDS: POTASSIUM CHLORIDE 20 MEQ POWDER PACKET GT SCH (08:02)
[2019-05-25] MEDS: DOCUSATE SODIUM 100 MG/10 ML LIQUID UDC GT SCH ×2 (08:02→21:21)
[2019-05-25 08:03] VITALS: BP 137/72
[2019-05-25] MEDS: COD LIVER OIL/ZINC OXIDE OINT 113 GM TUBE TOP SCH ×4 (08:03→21:23)
[2019-05-25] MEDS: HYDROGEN PEROXIDE 3% 118 ML BOTTLE TP SCH ×2 (08:08→21:00)
[2019-05-25] MEDS: GLUCERNA 1.2 1000ML LIQUID GT PRN (14:15)
[2019-05-25] MEDS: INSULIN REGULAR, HUMAN 300 UNIT/3 ML VIAL SQ PRN ×2 (14:17→21:39)
[2019-05-25 20:13] VITALS: BP 139/78
[2019-05-25] MEDS: FERROUS SULFATE 330 MG/7.5 ML UDC- FOR SA ONLY GT SCH (21:21)
[2019-05-25] MEDS: ATORVASTATIN 10 MG TABLET GT SCH (21:23)
[2019-05-26] MEDS: POLYVINYL ALCOHOL OPHT DROPS 15 ML BOTTLE EACHEYE SCH ×6 (00:08→20:00)
[2019-05-26] MEDS: SODIUM CHLORIDE 5% OPHT OINT 3.5 GM TUBE RIGHTEYE SCH ×6 (00:08→21:08)
--- NOTE | 2019-05-26 00:20 | NUR ---
Trached resident received on HT 50 vent with ordered settings. No signs of SOB noted. Trach is secure and patent at midline. Sxn'd small amounts of pale white thick secretions. No complications. Alarms are on/ audible. Spare trach/ambubag at bedside. Will continue to monitor throughout shift.
[2019-05-26] MEDS: PANTOPRAZOLE ORAL SUSPENSION 40 MG SUSPDR.PKT GT SCH (05:14)
[2019-05-26] MEDS: LEVOTHYROXINE SODIUM 50 MCG TABLET GT SCH (05:14)
[2019-05-26] MEDS: BLOOD SUGAR DIAGNOSTIC 1 EACH STRIP VI SCH ×3 (05:31→21:15)
[2019-05-26] MEDS: INSULIN GLARGINE,HUM 300 UNITS/3 ML CARTRIDGE SQ SCH ×2 (05:33→17:12)
[2019-05-26] MEDS: HYDROGEN PEROXIDE 3% 118 ML BOTTLE TP SCH ×2 (07:05→21:14)
[2019-05-26 08:02] VITALS: BP 93/57
[2019-05-26] MEDS: BISACODYL 10 MG SUPP.RECT RC SCH (08:51)
[2019-05-26] MEDS: DOCUSATE SODIUM 100 MG/10 ML LIQUID UDC GT SCH ×2 (08:51→21:07)
[2019-05-26] MEDS: ACIDOPHILUS/BULGARICUS CHEW TAB GT SCH ×2 (08:51→21:07)
[2019-05-26] MEDS: POTASSIUM CHLORIDE 20 MEQ POWDER PACKET GT SCH (08:51)
[2019-05-26] MEDS: COD LIVER OIL/ZINC OXIDE OINT 113 GM TUBE TOP SCH ×4 (08:51→21:08)
[2019-05-26] MEDS: GLUCERNA 1.2 1000ML LIQUID GT PRN (11:03)
[2019-05-26] MEDS: INSULIN REGULAR, HUMAN 300 UNIT/3 ML VIAL SQ PRN ×2 (13:09→21:17)
[2019-05-26 20:20] VITALS: BP 143/83
[2019-05-26] MEDS: FERROUS SULFATE 330 MG/7.5 ML UDC- FOR SA ONLY GT SCH (21:07)
[2019-05-26] MEDS: ATORVASTATIN 10 MG TABLET GT SCH (21:08)
[2019-05-27] MEDS: SODIUM CHLORIDE 5% OPHT OINT 3.5 GM TUBE RIGHTEYE SCH ×6 (00:26→21:12)
[2019-05-27] MEDS: POLYVINYL ALCOHOL OPHT DROPS 15 ML BOTTLE EACHEYE SCH ×6 (00:26→20:00)
[2019-05-27] MEDS: LEVOTHYROXINE SODIUM 50 MCG TABLET GT SCH (05:15)
[2019-05-27] MEDS: BLOOD SUGAR DIAGNOSTIC 1 EACH STRIP VI SCH ×3 (05:15→21:24)
[2019-05-27] MEDS: PANTOPRAZOLE ORAL SUSPENSION 40 MG SUSPDR.PKT GT SCH (05:15)
[2019-05-27] MEDS: INSULIN GLARGINE,HUM 300 UNITS/3 ML CARTRIDGE SQ SCH ×2 (05:16→17:43)
[2019-05-27] MEDS: HYDROGEN PEROXIDE 3% 118 ML BOTTLE TP SCH ×2 (07:05→18:45)
[2019-05-27 08:03] VITALS: BP 132/72
[2019-05-27] MEDS: DOCUSATE SODIUM 100 MG/10 ML LIQUID UDC GT SCH ×2 (09:06→21:11)
[2019-05-27] MEDS: ACIDOPHILUS/BULGARICUS CHEW TAB GT SCH ×2 (09:08→21:11)
[2019-05-27] MEDS: COD LIVER OIL/ZINC OXIDE OINT 113 GM TUBE TOP SCH ×4 (09:08→21:12)
[2019-05-27] MEDS: POTASSIUM CHLORIDE 20 MEQ POWDER PACKET GT SCH (09:08)
[2019-05-27] MEDS: GLUCERNA 1.2 1000ML LIQUID GT PRN (09:45)
[2019-05-27] MEDS: INSULIN REGULAR, HUMAN 300 UNIT/3 ML VIAL SQ PRN ×2 (13:50→21:32)
[2019-05-27 20:45] VITALS: BP 148/80
[2019-05-27] MEDS: FERROUS SULFATE 330 MG/7.5 ML UDC- FOR SA ONLY GT SCH (21:11)
[2019-05-27] MEDS: ATORVASTATIN 10 MG TABLET GT SCH (21:11)
[2019-05-28] MEDS: SODIUM CHLORIDE 5% OPHT OINT 3.5 GM TUBE RIGHTEYE SCH ×6 (01:23→21:52)
[2019-05-28] MEDS: POLYVINYL ALCOHOL OPHT DROPS 15 ML BOTTLE EACHEYE SCH ×6 (04:00→20:43)
[2019-05-28] MEDS: PANTOPRAZOLE ORAL SUSPENSION 40 MG SUSPDR.PKT GT SCH (05:21)
[2019-05-28] MEDS: LEVOTHYROXINE SODIUM 50 MCG TABLET GT SCH (05:21)
[2019-05-28] MEDS: BLOOD SUGAR DIAGNOSTIC 1 EACH STRIP VI SCH ×3 (05:21→21:55)
[2019-05-28] MEDS: INSULIN GLARGINE,HUM 300 UNITS/3 ML CARTRIDGE SQ SCH ×2 (05:39→17:14)
[2019-05-28 08:05] VITALS: BP 120/81
[2019-05-28] MEDS: ACIDOPHILUS/BULGARICUS CHEW TAB GT SCH ×2 (08:34→21:50)
[2019-05-28] MEDS: BISACODYL 10 MG SUPP.RECT RC SCH (08:34)
[2019-05-28] MEDS: DOCUSATE SODIUM 100 MG/10 ML LIQUID UDC GT SCH ×2 (08:34→21:50)
[2019-05-28] MEDS: COD LIVER OIL/ZINC OXIDE OINT 113 GM TUBE TOP SCH ×4 (08:34→21:52)
[2019-05-28] MEDS: POTASSIUM CHLORIDE 20 MEQ POWDER PACKET GT SCH (08:34)
[2019-05-28] MEDS: HYDROGEN PEROXIDE 3% 118 ML BOTTLE TP SCH ×2 (09:43→20:24)
[2019-05-28] MEDS: INSULIN REGULAR, HUMAN 300 UNIT/3 ML VIAL SQ PRN ×2 (14:11→21:57)
[2019-05-28 19:41] VITALS: BP 138/81
[2019-05-28] MEDS: FERROUS SULFATE 330 MG/7.5 ML UDC- FOR SA ONLY GT SCH (21:50)
[2019-05-28] MEDS: ATORVASTATIN 10 MG TABLET GT SCH (21:51)
[2019-05-28] MEDS: GLUCERNA 1.2 1000ML LIQUID GT PRN (23:00)
[2019-05-29] MEDS: SODIUM CHLORIDE 5% OPHT OINT 3.5 GM TUBE RIGHTEYE SCH ×6 (01:16→20:36)
[2019-05-29] MEDS: POLYVINYL ALCOHOL OPHT DROPS 15 ML BOTTLE EACHEYE SCH ×6 (03:43→20:36)
[2019-05-29] MEDS: PANTOPRAZOLE ORAL SUSPENSION 40 MG SUSPDR.PKT GT SCH (05:41)
[2019-05-29] MEDS: LEVOTHYROXINE SODIUM 50 MCG TABLET GT SCH (05:41)
[2019-05-29] MEDS: BLOOD SUGAR DIAGNOSTIC 1 EACH STRIP VI SCH ×3 (05:42→22:02)
[2019-05-29] MEDS: INSULIN GLARGINE,HUM 300 UNITS/3 ML CARTRIDGE SQ SCH ×2 (05:43→17:33)
[2019-05-29] MEDS: INSULIN REGULAR, HUMAN 300 UNIT/3 ML VIAL SQ PRN ×3 (05:44→22:03)
[2019-05-29] MEDS: ACIDOPHILUS/BULGARICUS CHEW TAB GT SCH ×2 (08:04→20:36)
[2019-05-29] MEDS: POTASSIUM CHLORIDE 20 MEQ POWDER PACKET GT SCH (08:04)
[2019-05-29] MEDS: DOCUSATE SODIUM 100 MG/10 ML LIQUID UDC GT SCH ×2 (08:04→20:36)
[2019-05-29 08:06] VITALS: BP 98/67
[2019-05-29] MEDS: COD LIVER OIL/ZINC OXIDE OINT 113 GM TUBE TOP SCH ×4 (08:09→20:36)
[2019-05-29] MEDS: HYDROGEN PEROXIDE 3% 118 ML BOTTLE TP SCH ×2 (09:00→21:05)
--- NOTE | 2019-05-29 14:41 | NUR ---
INTERDISCIPLINARY PLAN OF CARE CONFERENCE was held today. Patient's daughter Mana was unable to attend the meeting. Dr. Nolan and the Interdisciplinary Team reviewed the current plan of care in detail. RN reported on patient's current medical condition and ongoing skin treatment. No major changes were reported in patient's condition. See RN IDT conference notes. See also all other disciplines IDT notes and physician's progress notes for additional details.
--- NOTE | 2019-05-29 15:11 | NUR ---
Pharmacy Update for Today's 05/29/19 IDT meeting VS: Temp 97.4 BP 98/67 HR 58 LABS: (from 05/18/19) Wbc 8 H/H 11.3/34.3 Plt 218 Na 139 K 3.7 Cl 102 CO2 27 BUN/SCr 24/0.6 BS 116 Ca 9.3 phos 3.6 Mg 2.1 MEDICATION USE REVIEWED: > Pt not on any anti-psych or anti-seizure medications > Previously on phenytoin, neurology d/c'd on 04/30/19 after prolonged course of tapering. No seizures noted since d/c or during taper. Remains stable at this time > On moderate sliding scale insulin + 20 units Lantus AMHS, BS ranges 101-232 since last IDT > On KCl 20meq daily; last K 3.7 > Pt on Synthroid 50mcg daily. TSH on 06/20/18 was 3.595 (0.358-3.740), within therapeutic range. > PRN MED USAGE: (Apr) Tylenol for pain used x 0 Tylenol for temp used x 0 NEW ORDERS NOTED: > NA Patient reviewed and discussed in detail at today's IDT with no noted medication issues or concerns at this time. No seizures noted since all anti-seizure meds tapered off. No further recs at this time, will continue to follow
[2019-05-29 19:53] VITALS: BP 120/84
[2019-05-29] MEDS: ATORVASTATIN 10 MG TABLET GT SCH (20:36)
[2019-05-29] MEDS: FERROUS SULFATE 330 MG/7.5 ML UDC- FOR SA ONLY GT SCH (20:36)
[2019-05-29] MEDS: GLUCERNA 1.2 1000ML LIQUID GT PRN (20:40)
[2019-05-30] MEDS: POLYVINYL ALCOHOL OPHT DROPS 15 ML BOTTLE EACHEYE SCH ×6 (00:32→20:00)
[2019-05-30] MEDS: SODIUM CHLORIDE 5% OPHT OINT 3.5 GM TUBE RIGHTEYE SCH ×6 (01:02→21:07)
[2019-05-30] MEDS: LEVOTHYROXINE SODIUM 50 MCG TABLET GT SCH (05:07)
[2019-05-30] MEDS: BLOOD SUGAR DIAGNOSTIC 1 EACH STRIP VI SCH ×3 (05:07→22:04)
[2019-05-30] MEDS: PANTOPRAZOLE ORAL SUSPENSION 40 MG SUSPDR.PKT GT SCH (05:07)
[2019-05-30] MEDS: INSULIN GLARGINE,HUM 300 UNITS/3 ML CARTRIDGE SQ SCH ×2 (05:09→17:54)
[2019-05-30 07:06] LABS: BASOPHILS % (AUTO) 0.6 % (0.0-2.0); EOSINOPHILS # (AUTO) 0.4 K/uL (0.0-0.7); EOSINOPHILS % (AUTO) 6.1 % (0.0-7.0); HEMATOCRIT 34.1 % (36.7-47.1); HEMOGLOBIN 11.3 g/dL (12.5-16.3); LYMPHOCYTES # (AUTO) 1.5 K/uL (20.0-40.0); LYMPHOCYTES % (AUTO) 25.4 % (20.5-51.5); MEAN CORPUSCULAR HEMOGLOBIN 28.6 uug (23.8-33.4); MEAN CORPUSCULAR HGB CONC 33 g/dL (32.5-36.3); MEAN CORPUSCULAR VOLUME 86.1 fL (73.0-96.2); MONOCYTES # (AUTO) 0.5 K/uL (2.0-10.0); MONOCYTES % (AUTO) 8.5 % (0.0-11.0); NEUTROPHILS # (AUTO) 3.5 K/uL (1.8-8.9); NEUTROPHILS % (AUTO) 59.4 % (38.5-71.5); PLATELET COUNT (AUTO) 199 K/uL (152-348); RED BLOOD CELL COUNT(AUTO) 3.96 MIL/uL (4.06-5.63); WHITE BLOOD COUNT (AUTO) 5.9 K/uL (3.6-10.2)
[2019-05-30 07:16] LABS: CARBON DIOXIDE 27 mmol/L (21-32); CHLORIDE 103 mmol/L (98-107); CREATININE 0.5 mg/dL (0.6-1.3); GLUCOSE 101 mg/dL (74-106); POTASSIUM 3.4 mmol/L (3.5-5.1); UREA NITROGEN, BLOOD 24 mg/dL (7-18)
[2019-05-30 08:14] VITALS: BP 122/80
[2019-05-30] MEDS: HYDROGEN PEROXIDE 3% 118 ML BOTTLE TP SCH ×2 (08:18→18:42)
[2019-05-30] MEDS: COD LIVER OIL/ZINC OXIDE OINT 113 GM TUBE TOP SCH ×4 (09:29→21:07)
[2019-05-30] MEDS: ACIDOPHILUS/BULGARICUS CHEW TAB GT SCH ×2 (09:30→21:05)
[2019-05-30] MEDS: DOCUSATE SODIUM 100 MG/10 ML LIQUID UDC GT SCH ×2 (09:33→21:04)
[2019-05-30] MEDS: POTASSIUM CHLORIDE 20 MEQ POWDER PACKET GT SCH (09:39)
[2019-05-30] MEDS: BISACODYL 10 MG SUPP.RECT RC SCH (09:40)
--- NOTE | 2019-05-30 10:00 | NUR ---
New orders noted to increase kcl to 40 meq for hypokalemia,carried out.
[2019-05-30] MEDS: INSULIN REGULAR, HUMAN 300 UNIT/3 ML VIAL SQ PRN ×2 (14:27→22:07)
[2019-05-30] MEDS: IPRATROPIUM BROMIDE 0.5 MG/2.5 ML NEBU NEB PRN (18:42)
[2019-05-30] MEDS: ALBUTEROL SULFATE 2.5 MG/3 ML NEBU NEB PRN (18:42)
[2019-05-30] MEDS: GLUCERNA 1.2 1000ML LIQUID GT PRN (18:49)
[2019-05-30 19:43] VITALS: BP 123/73
[2019-05-30] MEDS: FERROUS SULFATE 330 MG/7.5 ML UDC- FOR SA ONLY GT SCH (21:04)
[2019-05-30] MEDS: ATORVASTATIN 10 MG TABLET GT SCH (21:06)
[2019-05-31] MEDS: POLYVINYL ALCOHOL OPHT DROPS 15 ML BOTTLE EACHEYE SCH ×6 (00:43→20:08)
[2019-05-31] MEDS: SODIUM CHLORIDE 5% OPHT OINT 3.5 GM TUBE RIGHTEYE SCH ×6 (01:00→20:42)
[2019-05-31] MEDS: PANTOPRAZOLE ORAL SUSPENSION 40 MG SUSPDR.PKT GT SCH (05:56)
[2019-05-31] MEDS: LEVOTHYROXINE SODIUM 50 MCG TABLET GT SCH (05:56)
[2019-05-31] MEDS: BLOOD SUGAR DIAGNOSTIC 1 EACH STRIP VI SCH ×3 (05:57→22:05)
[2019-05-31] MEDS: INSULIN REGULAR, HUMAN 300 UNIT/3 ML VIAL SQ PRN ×3 (05:59→22:08)
[2019-05-31] MEDS: INSULIN GLARGINE,HUM 300 UNITS/3 ML CARTRIDGE SQ SCH ×2 (06:00→17:42)
[2019-05-31 08:07] VITALS: BP 125/73
[2019-05-31] MEDS: DOCUSATE SODIUM 100 MG/10 ML LIQUID UDC GT SCH ×2 (08:36→20:42)
[2019-05-31] MEDS: ACIDOPHILUS/BULGARICUS CHEW TAB GT SCH ×2 (08:37→20:42)
[2019-05-31] MEDS: COD LIVER OIL/ZINC OXIDE OINT 113 GM TUBE TOP SCH ×4 (08:39→20:42)
[2019-05-31] MEDS: POTASSIUM CHLORIDE 20 MEQ POWDER PACKET GT SCH (08:39)
[2019-05-31] MEDS: HYDROGEN PEROXIDE 3% 118 ML BOTTLE TP SCH ×2 (09:46→21:02)
--- NOTE | 2019-05-31 17:45 | NUR ---
SEEN AND EXAMINED BY DR. CARVER AND SARYO.
[2019-05-31] MEDS: GLUCERNA 1.2 1000ML LIQUID GT PRN (17:47)
[2019-05-31] MEDS: ATORVASTATIN 10 MG TABLET GT SCH (20:42)
[2019-05-31] MEDS: FERROUS SULFATE 330 MG/7.5 ML UDC- FOR SA ONLY GT SCH (20:42)
[2019-05-31 20:48] VITALS: BP 112/74
[2019-06-01] MEDS: SODIUM CHLORIDE 5% OPHT OINT 3.5 GM TUBE RIGHTEYE SCH ×6 (01:13→20:53)
[2019-06-01] MEDS: POLYVINYL ALCOHOL OPHT DROPS 15 ML BOTTLE EACHEYE SCH ×7 (04:13→23:01)
[2019-06-01] MEDS: LEVOTHYROXINE SODIUM 50 MCG TABLET GT SCH (06:01)
[2019-06-01] MEDS: PANTOPRAZOLE ORAL SUSPENSION 40 MG SUSPDR.PKT GT SCH (06:01)
[2019-06-01] MEDS: BLOOD SUGAR DIAGNOSTIC 1 EACH STRIP VI SCH ×3 (06:01→21:09)
[2019-06-01] MEDS: INSULIN GLARGINE,HUM 300 UNITS/3 ML CARTRIDGE SQ SCH ×2 (06:03→17:15)
[2019-06-01] MEDS: INSULIN REGULAR, HUMAN 300 UNIT/3 ML VIAL SQ PRN ×3 (06:04→21:12)
[2019-06-01 08:00] VITALS: BP 114/72
[2019-06-01] MEDS: DOCUSATE SODIUM 100 MG/10 ML LIQUID UDC GT SCH ×2 (08:38→20:53)
[2019-06-01] MEDS: ACIDOPHILUS/BULGARICUS CHEW TAB GT SCH ×2 (08:38→20:53)
[2019-06-01] MEDS: POTASSIUM CHLORIDE 20 MEQ POWDER PACKET GT SCH (08:39)
[2019-06-01] MEDS: BISACODYL 10 MG SUPP.RECT RC SCH (08:39)
[2019-06-01] MEDS: COD LIVER OIL/ZINC OXIDE OINT 113 GM TUBE TOP SCH ×4 (08:40→20:53)
[2019-06-01] MEDS: HYDROGEN PEROXIDE 3% 118 ML BOTTLE TP SCH ×2 (09:55→21:30)
[2019-06-01] MEDS: GLUCERNA 1.2 1000ML LIQUID GT PRN (12:07)
[2019-06-01 20:43] VITALS: BP 101/64
[2019-06-01] MEDS: FERROUS SULFATE 330 MG/7.5 ML UDC- FOR SA ONLY GT SCH (20:53)
[2019-06-01] MEDS: ATORVASTATIN 10 MG TABLET GT SCH (20:53)
[2019-06-02] MEDS: SODIUM CHLORIDE 5% OPHT OINT 3.5 GM TUBE RIGHTEYE SCH ×6 (01:13→21:06)
[2019-06-02] MEDS: POLYVINYL ALCOHOL OPHT DROPS 15 ML BOTTLE EACHEYE SCH ×6 (03:49→23:06)
[2019-06-02] MEDS: LEVOTHYROXINE SODIUM 50 MCG TABLET GT SCH (05:50)
[2019-06-02] MEDS: PANTOPRAZOLE ORAL SUSPENSION 40 MG SUSPDR.PKT GT SCH (05:50)
[2019-06-02] MEDS: INSULIN GLARGINE,HUM 300 UNITS/3 ML CARTRIDGE SQ SCH ×2 (05:51→17:43)
[2019-06-02] MEDS: BLOOD SUGAR DIAGNOSTIC 1 EACH STRIP VI SCH ×3 (05:51→21:21)
[2019-06-02] MEDS: INSULIN REGULAR, HUMAN 300 UNIT/3 ML VIAL SQ PRN ×3 (05:52→21:22)
[2019-06-02 08:00] VITALS: BP 117/60
[2019-06-02] MEDS: ACIDOPHILUS/BULGARICUS CHEW TAB GT SCH ×2 (08:15→21:06)
[2019-06-02] MEDS: DOCUSATE SODIUM 100 MG/10 ML LIQUID UDC GT SCH ×2 (08:15→21:06)
[2019-06-02] MEDS: COD LIVER OIL/ZINC OXIDE OINT 113 GM TUBE TOP SCH ×4 (08:16→21:06)
[2019-06-02] MEDS: POTASSIUM CHLORIDE 20 MEQ POWDER PACKET GT SCH (08:16)
[2019-06-02] MEDS: HYDROGEN PEROXIDE 3% 118 ML BOTTLE TP SCH ×2 (09:00→20:58)
--- NOTE | 2019-06-02 09:00 | NUR ---
SEEN BY KAILA HILL N.P AND WITH NNO.
[2019-06-02] MEDS: GLUCERNA 1.2 1000ML LIQUID GT PRN (09:41)
[2019-06-02 20:49] VITALS: BP 126/73
[2019-06-02] MEDS: ATORVASTATIN 10 MG TABLET GT SCH (21:06)
[2019-06-02] MEDS: FERROUS SULFATE 330 MG/7.5 ML UDC- FOR SA ONLY GT SCH (21:06)
[2019-06-03] MEDS: SODIUM CHLORIDE 5% OPHT OINT 3.5 GM TUBE RIGHTEYE SCH ×6 (00:34→21:08)
[2019-06-03] MEDS: GLUCERNA 1.2 1000ML LIQUID GT PRN ×2 (01:39→22:44)
[2019-06-03] MEDS: POLYVINYL ALCOHOL OPHT DROPS 15 ML BOTTLE EACHEYE SCH ×6 (04:19→23:04)
[2019-06-03] MEDS: INSULIN GLARGINE,HUM 300 UNITS/3 ML CARTRIDGE SQ SCH ×2 (05:18→17:03)
[2019-06-03] MEDS: LEVOTHYROXINE SODIUM 50 MCG TABLET GT SCH (05:18)
[2019-06-03] MEDS: BLOOD SUGAR DIAGNOSTIC 1 EACH STRIP VI SCH ×3 (05:18→21:18)
[2019-06-03] MEDS: PANTOPRAZOLE ORAL SUSPENSION 40 MG SUSPDR.PKT GT SCH (05:18)
[2019-06-03] MEDS: INSULIN REGULAR, HUMAN 300 UNIT/3 ML VIAL SQ PRN ×3 (05:19→21:23)
[2019-06-03 08:00] VITALS: BP 130/84
[2019-06-03] MEDS: DOCUSATE SODIUM 100 MG/10 ML LIQUID UDC GT SCH ×2 (08:57→21:07)
[2019-06-03] MEDS: POTASSIUM CHLORIDE 20 MEQ POWDER PACKET GT SCH (08:57)
[2019-06-03] MEDS: ACIDOPHILUS/BULGARICUS CHEW TAB GT SCH ×2 (08:57→21:08)
[2019-06-03] MEDS: COD LIVER OIL/ZINC OXIDE OINT 113 GM TUBE TOP SCH ×4 (08:58→21:08)
[2019-06-03] MEDS: BISACODYL 10 MG SUPP.RECT RC SCH (08:58)
[2019-06-03] MEDS: HYDROGEN PEROXIDE 3% 118 ML BOTTLE TP SCH ×2 (09:00→21:48)
[2019-06-03 20:33] VITALS: BP 102/61
[2019-06-03] MEDS: FERROUS SULFATE 330 MG/7.5 ML UDC- FOR SA ONLY GT SCH (21:07)
[2019-06-03] MEDS: ATORVASTATIN 10 MG TABLET GT SCH (21:08)
[2019-06-04] MEDS: SODIUM CHLORIDE 5% OPHT OINT 3.5 GM TUBE RIGHTEYE SCH ×6 (00:24→20:32)
[2019-06-04] MEDS: POLYVINYL ALCOHOL OPHT DROPS 15 ML BOTTLE EACHEYE SCH ×5 (04:33→20:32)
[2019-06-04] MEDS: PANTOPRAZOLE ORAL SUSPENSION 40 MG SUSPDR.PKT GT SCH (05:42)
[2019-06-04] MEDS: LEVOTHYROXINE SODIUM 50 MCG TABLET GT SCH (05:42)
[2019-06-04] MEDS: BLOOD SUGAR DIAGNOSTIC 1 EACH STRIP VI SCH ×3 (05:43→21:48)
[2019-06-04] MEDS: INSULIN REGULAR, HUMAN 300 UNIT/3 ML VIAL SQ PRN ×3 (05:43→21:53)
[2019-06-04] MEDS: INSULIN GLARGINE,HUM 300 UNITS/3 ML CARTRIDGE SQ SCH ×2 (05:43→17:29)
[2019-06-04 08:00] VITALS: BP 102/58
[2019-06-04] MEDS: DOCUSATE SODIUM 100 MG/10 ML LIQUID UDC GT SCH ×2 (08:04→20:32)
[2019-06-04] MEDS: ACIDOPHILUS/BULGARICUS CHEW TAB GT SCH ×2 (08:05→20:32)
[2019-06-04] MEDS: COD LIVER OIL/ZINC OXIDE OINT 113 GM TUBE TOP SCH ×2 (08:06→20:32)
[2019-06-04] MEDS: POTASSIUM CHLORIDE 20 MEQ POWDER PACKET GT SCH (08:06)
[2019-06-04] MEDS: HYDROGEN PEROXIDE 3% 118 ML BOTTLE TP SCH ×2 (09:50→20:32)
--- NOTE | 2019-06-04 15:56 | NUR ---
SEEN AND EXAMINED BY ANAID HO.
--- NOTE | 2019-06-04 20:08 | NUR ---
Received pt on HT-50 ventilator with the following settings of AC-14, Vt-500, PEEP+5, FIO2-35%, trached with Portex#9 cuffed trach, which is in the place and secure. No distress noted. Airway care done, pt responded to physical stimuli. HME changed. Resus. bag and back up trach at bedside. Vent and alarms checked and reset.
[2019-06-04 20:22] VITALS: BP 104/65
[2019-06-04] MEDS: ATORVASTATIN 10 MG TABLET GT SCH (20:32)
[2019-06-04] MEDS: FERROUS SULFATE 330 MG/7.5 ML UDC- FOR SA ONLY GT SCH (20:32)
[2019-06-04] MEDS: GLUCERNA 1.2 1000ML LIQUID GT PRN (21:54)
[2019-06-05] MEDS: SODIUM CHLORIDE 5% OPHT OINT 3.5 GM TUBE RIGHTEYE SCH ×6 (00:42→21:45)
[2019-06-05] MEDS: POLYVINYL ALCOHOL OPHT DROPS 15 ML BOTTLE EACHEYE SCH ×6 (00:42→20:00)
[2019-06-05] MEDS: PANTOPRAZOLE ORAL SUSPENSION 40 MG SUSPDR.PKT GT SCH (05:35)
[2019-06-05] MEDS: LEVOTHYROXINE SODIUM 50 MCG TABLET GT SCH (05:35)
[2019-06-05] MEDS: BLOOD SUGAR DIAGNOSTIC 1 EACH STRIP VI SCH ×3 (05:35→21:42)
[2019-06-05] MEDS: INSULIN GLARGINE,HUM 300 UNITS/3 ML CARTRIDGE SQ SCH ×2 (05:39→17:19)
[2019-06-05 07:34] LABS: BASOPHILS % (AUTO) 0.3 % (0.0-2.0); EOSINOPHILS # (AUTO) 0.3 K/uL (0.0-0.7); EOSINOPHILS % (AUTO) 4.7 % (0.0-7.0); HEMATOCRIT 32.7 % (36.7-47.1); LYMPHOCYTES # (AUTO) 1.6 K/uL (20.0-40.0); LYMPHOCYTES % (AUTO) 23.5 % (20.5-51.5); MEAN CORPUSCULAR HEMOGLOBIN 29.3 uug (23.8-33.4); MEAN CORPUSCULAR HGB CONC 34 g/dL (32.5-36.3); MEAN CORPUSCULAR VOLUME 87.3 fL (73.0-96.2); MONOCYTES # (AUTO) 0.5 K/uL (2.0-10.0); MONOCYTES % (AUTO) 7.9 % (0.0-11.0); NEUTROPHILS # (AUTO) 4.3 K/uL (1.8-8.9); NEUTROPHILS % (AUTO) 63.6 % (38.5-71.5); PLATELET COUNT (AUTO) 197 K/uL (152-348); RED BLOOD CELL COUNT(AUTO) 3.74 MIL/uL (4.06-5.63); WHITE BLOOD COUNT (AUTO) 6.8 K/uL (3.6-10.2)
[2019-06-05 07:43] LABS: CARBON DIOXIDE 28 mmol/L (21-32); CHLORIDE 106 mmol/L (98-107); CREATININE 0.6 mg/dL (0.6-1.3); GLUCOSE 112 mg/dL (74-106); POTASSIUM 3.6 mmol/L (3.5-5.1); UREA NITROGEN, BLOOD 25 mg/dL (7-18)
[2019-06-05 08:00] VITALS: BP 107/69
[2019-06-05] MEDS: DOCUSATE SODIUM 100 MG/10 ML LIQUID UDC GT SCH ×2 (08:18→21:43)
[2019-06-05] MEDS: ACIDOPHILUS/BULGARICUS CHEW TAB GT SCH ×2 (08:18→21:44)
[2019-06-05] MEDS: COD LIVER OIL/ZINC OXIDE OINT 113 GM TUBE TOP SCH ×2 (08:19→21:45)
[2019-06-05] MEDS: POTASSIUM CHLORIDE 20 MEQ POWDER PACKET GT SCH (08:19)
[2019-06-05] MEDS: BISACODYL 10 MG SUPP.RECT RC SCH (08:19)
[2019-06-05] MEDS: HYDROGEN PEROXIDE 3% 118 ML BOTTLE TP SCH ×2 (09:05→21:07)
[2019-06-05] MEDS: INSULIN REGULAR, HUMAN 300 UNIT/3 ML VIAL SQ PRN ×2 (14:08→21:57)
[2019-06-05] MEDS: GLUCERNA 1.2 1000ML LIQUID GT PRN (18:45)
[2019-06-05 20:00] VITALS: BP 107/71
[2019-06-05] MEDS: FERROUS SULFATE 330 MG/7.5 ML UDC- FOR SA ONLY GT SCH (21:44)
[2019-06-05] MEDS: ATORVASTATIN 10 MG TABLET GT SCH (21:44)
[2019-06-06] MEDS: SODIUM CHLORIDE 5% OPHT OINT 3.5 GM TUBE RIGHTEYE SCH ×6 (01:00→21:33)
[2019-06-06] MEDS: POLYVINYL ALCOHOL OPHT DROPS 15 ML BOTTLE EACHEYE SCH ×6 (04:00→20:00)
[2019-06-06] MEDS: PANTOPRAZOLE ORAL SUSPENSION 40 MG SUSPDR.PKT GT SCH (05:17)
[2019-06-06] MEDS: LEVOTHYROXINE SODIUM 50 MCG TABLET GT SCH (05:17)
[2019-06-06] MEDS: INSULIN GLARGINE,HUM 300 UNITS/3 ML CARTRIDGE SQ SCH ×2 (06:19→17:46)
[2019-06-06] MEDS: BLOOD SUGAR DIAGNOSTIC 1 EACH STRIP VI SCH ×3 (06:19→21:33)
[2019-06-06] MEDS: INSULIN REGULAR, HUMAN 300 UNIT/3 ML VIAL SQ PRN ×4 (06:20→21:35)
[2019-06-06] MEDS: DOCUSATE SODIUM 100 MG/10 ML LIQUID UDC GT SCH ×2 (08:24→21:32)
[2019-06-06] MEDS: ACIDOPHILUS/BULGARICUS CHEW TAB GT SCH ×2 (08:24→21:32)
[2019-06-06] MEDS: POTASSIUM CHLORIDE 20 MEQ POWDER PACKET GT SCH (08:24)
[2019-06-06] MEDS: COD LIVER OIL/ZINC OXIDE OINT 113 GM TUBE TOP SCH ×2 (08:25→21:33)
[2019-06-06 09:50] VITALS: BP 150/84
[2019-06-06] MEDS: HYDROGEN PEROXIDE 3% 118 ML BOTTLE TP SCH ×2 (09:53→21:22)
[2019-06-06] MEDS: GLUCERNA 1.2 1000ML LIQUID GT PRN (14:38)
[2019-06-06 20:00] VITALS: BP 98/58
[2019-06-06] MEDS: ATORVASTATIN 10 MG TABLET GT SCH (21:32)
[2019-06-06] MEDS: FERROUS SULFATE 330 MG/7.5 ML UDC- FOR SA ONLY GT SCH (21:32)
[2019-06-07] MEDS: SODIUM CHLORIDE 5% OPHT OINT 3.5 GM TUBE RIGHTEYE SCH ×6 (01:00→21:00)
[2019-06-07] MEDS: POLYVINYL ALCOHOL OPHT DROPS 15 ML BOTTLE EACHEYE SCH ×6 (04:51→20:00)
[2019-06-07] MEDS: LEVOTHYROXINE SODIUM 50 MCG TABLET GT SCH (05:59)
[2019-06-07] MEDS: PANTOPRAZOLE ORAL SUSPENSION 40 MG SUSPDR.PKT GT SCH (05:59)
[2019-06-07] MEDS: BLOOD SUGAR DIAGNOSTIC 1 EACH STRIP VI SCH ×3 (06:00→22:01)
[2019-06-07] MEDS: INSULIN GLARGINE,HUM 300 UNITS/3 ML CARTRIDGE SQ SCH ×2 (06:00→17:19)
[2019-06-07] MEDS: INSULIN REGULAR, HUMAN 300 UNIT/3 ML VIAL SQ PRN ×3 (06:01→22:21)
[2019-06-07] MEDS: HYDROGEN PEROXIDE 3% 118 ML BOTTLE TP SCH ×2 (07:07→21:01)
[2019-06-07 08:00] VITALS: BP 106/62
[2019-06-07] MEDS: DOCUSATE SODIUM 100 MG/10 ML LIQUID UDC GT SCH ×2 (08:09→21:00)
[2019-06-07] MEDS: ACIDOPHILUS/BULGARICUS CHEW TAB GT SCH ×2 (08:09→21:00)
[2019-06-07] MEDS: POTASSIUM CHLORIDE 20 MEQ POWDER PACKET GT SCH (08:11)
[2019-06-07] MEDS: COD LIVER OIL/ZINC OXIDE OINT 113 GM TUBE TOP SCH ×2 (08:12→21:00)
[2019-06-07] MEDS: BISACODYL 10 MG SUPP.RECT RC SCH (08:14)
[2019-06-07] MEDS: GLUCERNA 1.2 1000ML LIQUID GT PRN (13:48)
--- NOTE | 2019-06-07 19:00 | NUR ---
SEEN BY WITH NNO.
[2019-06-07 20:00] VITALS: BP 109/64
--- NOTE | 2019-06-07 20:10 | NUR ---
PT RECEIVED ON CONTINUOUS VENT, TRACH TUBE IN PLACE PATENT AND SECURE WITH TRACH TIE. AMBU BAG AND BACK UP TRACH AT BEDSIDE. TRACH CARE DONE. NO DISTRESS NOTED AT THIS TIME . SUCTION PRN. VENT ALARMS AUDIBLE, CHECKED AND RESET. WILL CONTINUE TO MONITOR.
[2019-06-07] MEDS: FERROUS SULFATE 330 MG/7.5 ML UDC- FOR SA ONLY GT SCH (21:00)
[2019-06-07] MEDS: ATORVASTATIN 10 MG TABLET GT SCH (21:00)
[2019-06-08] MEDS: SODIUM CHLORIDE 5% OPHT OINT 3.5 GM TUBE RIGHTEYE SCH ×6 (01:00→20:56)
[2019-06-08] MEDS: POLYVINYL ALCOHOL OPHT DROPS 15 ML BOTTLE EACHEYE SCH ×6 (04:00→20:46)
[2019-06-08] MEDS: LEVOTHYROXINE SODIUM 50 MCG TABLET GT SCH (05:32)
[2019-06-08] MEDS: PANTOPRAZOLE ORAL SUSPENSION 40 MG SUSPDR.PKT GT SCH (05:32)
[2019-06-08] MEDS: BLOOD SUGAR DIAGNOSTIC 1 EACH STRIP VI SCH ×3 (05:33→21:13)
[2019-06-08] MEDS: INSULIN REGULAR, HUMAN 300 UNIT/3 ML VIAL SQ PRN ×2 (05:35→14:22)
[2019-06-08] MEDS: INSULIN GLARGINE,HUM 300 UNITS/3 ML CARTRIDGE SQ SCH ×2 (05:35→17:07)
[2019-06-08 08:03] VITALS: BP 117/73
[2019-06-08] MEDS: DOCUSATE SODIUM 100 MG/10 ML LIQUID UDC GT SCH ×2 (08:51→20:56)
[2019-06-08] MEDS: ACIDOPHILUS/BULGARICUS CHEW TAB GT SCH ×2 (08:51→20:56)
[2019-06-08] MEDS: POTASSIUM CHLORIDE 20 MEQ POWDER PACKET GT SCH (08:52)
[2019-06-08] MEDS: COD LIVER OIL/ZINC OXIDE OINT 113 GM TUBE TOP SCH ×2 (08:53→20:56)
[2019-06-08] MEDS: HYDROGEN PEROXIDE 3% 118 ML BOTTLE TP SCH ×2 (08:55→21:29)
[2019-06-08 20:02] VITALS: BP 107/64
[2019-06-08] MEDS: FERROUS SULFATE 330 MG/7.5 ML UDC- FOR SA ONLY GT SCH (20:56)
[2019-06-08] MEDS: ATORVASTATIN 10 MG TABLET GT SCH (20:56)
--- NOTE | 2019-06-08 21:34 | NUR ---
Resident was received on [place] HT 50 vent with ordered settings. No signs of respiratory distress noted. Trach is secure and patent @ midline. Sxn'd small amounts of pale white thick secretions. No complications. Alarms are on/ audible. Spare trach/ambubag at bedside. Will continue to monitor throughout shift.
[2019-06-09] MEDS: POLYVINYL ALCOHOL OPHT DROPS 15 ML BOTTLE EACHEYE SCH ×6 (00:05→20:00)
[2019-06-09] MEDS: SODIUM CHLORIDE 5% OPHT OINT 3.5 GM TUBE RIGHTEYE SCH ×6 (00:05→21:15)
[2019-06-09] MEDS: BLOOD SUGAR DIAGNOSTIC 1 EACH STRIP VI SCH ×3 (05:08→21:15)
[2019-06-09] MEDS: PANTOPRAZOLE ORAL SUSPENSION 40 MG SUSPDR.PKT GT SCH (05:08)
[2019-06-09] MEDS: LEVOTHYROXINE SODIUM 50 MCG TABLET GT SCH (05:08)
[2019-06-09] MEDS: INSULIN GLARGINE,HUM 300 UNITS/3 ML CARTRIDGE SQ SCH ×2 (05:10→17:04)
[2019-06-09] MEDS: INSULIN REGULAR, HUMAN 300 UNIT/3 ML VIAL SQ PRN ×3 (05:11→21:28)
[2019-06-09 08:03] VITALS: BP 113/71
[2019-06-09] MEDS: ACIDOPHILUS/BULGARICUS CHEW TAB GT SCH ×2 (08:28→21:14)
[2019-06-09] MEDS: DOCUSATE SODIUM 100 MG/10 ML LIQUID UDC GT SCH ×2 (08:28→21:14)
[2019-06-09] MEDS: BISACODYL 10 MG SUPP.RECT RC SCH (08:28)
[2019-06-09] MEDS: POTASSIUM CHLORIDE 20 MEQ POWDER PACKET GT SCH (08:28)
[2019-06-09] MEDS: COD LIVER OIL/ZINC OXIDE OINT 113 GM TUBE TOP SCH ×2 (08:28→21:15)
[2019-06-09] MEDS: HYDROGEN PEROXIDE 3% 118 ML BOTTLE TP SCH ×2 (09:45→18:53)
[2019-06-09] MEDS: GLUCERNA 1.2 1000ML LIQUID GT PRN (11:24)
[2019-06-09 20:38] VITALS: BP 103/66
[2019-06-09] MEDS: FERROUS SULFATE 330 MG/7.5 ML UDC- FOR SA ONLY GT SCH (21:14)
[2019-06-09] MEDS: ATORVASTATIN 10 MG TABLET GT SCH (21:14)
[2019-06-10] MEDS: POLYVINYL ALCOHOL OPHT DROPS 15 ML BOTTLE EACHEYE SCH ×7 (00:13→23:46)
[2019-06-10] MEDS: SODIUM CHLORIDE 5% OPHT OINT 3.5 GM TUBE RIGHTEYE SCH ×6 (01:09→21:33)
[2019-06-10] MEDS: LEVOTHYROXINE SODIUM 50 MCG TABLET GT SCH (05:00)
[2019-06-10] MEDS: PANTOPRAZOLE ORAL SUSPENSION 40 MG SUSPDR.PKT GT SCH (05:00)
[2019-06-10] MEDS: BLOOD SUGAR DIAGNOSTIC 1 EACH STRIP VI SCH ×3 (05:01→22:35)
[2019-06-10] MEDS: INSULIN GLARGINE,HUM 300 UNITS/3 ML CARTRIDGE SQ SCH ×2 (05:26→17:01)
[2019-06-10] MEDS: GLUCERNA 1.2 1000ML LIQUID GT PRN ×2 (05:27→23:45)
[2019-06-10] MEDS: INSULIN REGULAR, HUMAN 300 UNIT/3 ML VIAL SQ PRN ×3 (05:28→22:37)
[2019-06-10 08:02] VITALS: BP 122/70
[2019-06-10] MEDS: DOCUSATE SODIUM 100 MG/10 ML LIQUID UDC GT SCH ×2 (08:57→21:33)
[2019-06-10] MEDS: POTASSIUM CHLORIDE 20 MEQ POWDER PACKET GT SCH (08:57)
[2019-06-10] MEDS: ACIDOPHILUS/BULGARICUS CHEW TAB GT SCH ×2 (08:57→21:33)
[2019-06-10] MEDS: COD LIVER OIL/ZINC OXIDE OINT 113 GM TUBE TOP SCH ×2 (08:58→21:34)
[2019-06-10] MEDS: HYDROGEN PEROXIDE 3% 118 ML BOTTLE TP SCH ×2 (09:16→21:09)
--- NOTE | 2019-06-10 19:59 | NUR ---
Received pt on HT-50 ventilator with the following settings of AC-14, Vt-500, PEEP+5, FIO2-35%, trached with Portex#9 cuffed trach, which is in the place and secure. No SOB noted. Airway care done, pt responded to physical stimuli. HME changed. Resus. bag and back up trach at bedside. Vent and alarms checked and reset.
[2019-06-10 20:58] VITALS: BP 100/64
[2019-06-10] MEDS: ATORVASTATIN 10 MG TABLET GT SCH (21:33)
[2019-06-10] MEDS: FERROUS SULFATE 330 MG/7.5 ML UDC- FOR SA ONLY GT SCH (21:33)
[2019-06-11] MEDS: SODIUM CHLORIDE 5% OPHT OINT 3.5 GM TUBE RIGHTEYE SCH ×6 (01:08→21:28)
[2019-06-11] MEDS: POLYVINYL ALCOHOL OPHT DROPS 15 ML BOTTLE EACHEYE SCH ×5 (04:22→20:34)
[2019-06-11] MEDS: PANTOPRAZOLE ORAL SUSPENSION 40 MG SUSPDR.PKT GT SCH (05:18)
[2019-06-11] MEDS: LEVOTHYROXINE SODIUM 50 MCG TABLET GT SCH (05:18)
[2019-06-11] MEDS: BLOOD SUGAR DIAGNOSTIC 1 EACH STRIP VI SCH ×3 (05:19→21:45)
[2019-06-11] MEDS: INSULIN REGULAR, HUMAN 300 UNIT/3 ML VIAL SQ PRN ×3 (05:20→21:48)
[2019-06-11] MEDS: INSULIN GLARGINE,HUM 300 UNITS/3 ML CARTRIDGE SQ SCH ×2 (05:21→17:23)
[2019-06-11 08:00] VITALS: BP 103/63
[2019-06-11] MEDS: BISACODYL 10 MG SUPP.RECT RC SCH (08:44)
[2019-06-11] MEDS: DOCUSATE SODIUM 100 MG/10 ML LIQUID UDC GT SCH ×2 (08:44→21:26)
[2019-06-11] MEDS: COD LIVER OIL/ZINC OXIDE OINT 113 GM TUBE TOP SCH ×2 (08:44→21:28)
[2019-06-11] MEDS: ACIDOPHILUS/BULGARICUS CHEW TAB GT SCH ×2 (08:44→21:28)
[2019-06-11] MEDS: POTASSIUM CHLORIDE 20 MEQ POWDER PACKET GT SCH (08:44)
[2019-06-11] MEDS: HYDROGEN PEROXIDE 3% 118 ML BOTTLE TP SCH ×2 (09:55→21:52)
[2019-06-11 20:33] VITALS: BP 99/65
[2019-06-11] MEDS: FERROUS SULFATE 330 MG/7.5 ML UDC- FOR SA ONLY GT SCH (21:27)
[2019-06-11] MEDS: ATORVASTATIN 10 MG TABLET GT SCH (21:28)
[2019-06-12] MEDS: POLYVINYL ALCOHOL OPHT DROPS 15 ML BOTTLE EACHEYE SCH ×6 (00:39→20:44)
[2019-06-12] MEDS: SODIUM CHLORIDE 5% OPHT OINT 3.5 GM TUBE RIGHTEYE SCH ×6 (01:00→20:44)
[2019-06-12] MEDS: PANTOPRAZOLE ORAL SUSPENSION 40 MG SUSPDR.PKT GT SCH (05:05)
[2019-06-12] MEDS: LEVOTHYROXINE SODIUM 50 MCG TABLET GT SCH (05:05)
[2019-06-12] MEDS: BLOOD SUGAR DIAGNOSTIC 1 EACH STRIP VI SCH ×3 (05:06→21:49)
[2019-06-12] MEDS: INSULIN GLARGINE,HUM 300 UNITS/3 ML CARTRIDGE SQ SCH ×2 (06:11→17:15)
[2019-06-12 08:00] VITALS: BP 106/67
[2019-06-12] MEDS: ACIDOPHILUS/BULGARICUS CHEW TAB GT SCH ×2 (08:24→20:44)
[2019-06-12] MEDS: POTASSIUM CHLORIDE 20 MEQ POWDER PACKET GT SCH (08:24)
[2019-06-12] MEDS: DOCUSATE SODIUM 100 MG/10 ML LIQUID UDC GT SCH ×2 (08:24→20:44)
[2019-06-12] MEDS: COD LIVER OIL/ZINC OXIDE OINT 113 GM TUBE TOP SCH ×2 (08:24→20:44)
[2019-06-12] MEDS: HYDROGEN PEROXIDE 3% 118 ML BOTTLE TP SCH ×2 (09:15→21:15)
[2019-06-12] MEDS: INSULIN REGULAR, HUMAN 300 UNIT/3 ML VIAL SQ PRN ×2 (13:07→21:56)
[2019-06-12] MEDS: GLUCERNA 1.2 1000ML LIQUID GT PRN (15:20)
[2019-06-12] MEDS: ATORVASTATIN 10 MG TABLET GT SCH (20:44)
[2019-06-12] MEDS: FERROUS SULFATE 330 MG/7.5 ML UDC- FOR SA ONLY GT SCH (20:44)
[2019-06-12 21:11] VITALS: BP 126/74
[2019-06-13] MEDS: POLYVINYL ALCOHOL OPHT DROPS 15 ML BOTTLE EACHEYE SCH ×6 (00:41→20:00)
[2019-06-13] MEDS: SODIUM CHLORIDE 5% OPHT OINT 3.5 GM TUBE RIGHTEYE SCH ×6 (01:00→21:03)
[2019-06-13] MEDS: PANTOPRAZOLE ORAL SUSPENSION 40 MG SUSPDR.PKT GT SCH (05:08)
[2019-06-13] MEDS: BLOOD SUGAR DIAGNOSTIC 1 EACH STRIP VI SCH ×3 (05:08→21:15)
[2019-06-13] MEDS: LEVOTHYROXINE SODIUM 50 MCG TABLET GT SCH (05:08)
[2019-06-13] MEDS: INSULIN GLARGINE,HUM 300 UNITS/3 ML CARTRIDGE SQ SCH ×2 (05:26→17:36)
[2019-06-13 08:00] VITALS: BP 104/64
[2019-06-13] MEDS: DOCUSATE SODIUM 100 MG/10 ML LIQUID UDC GT SCH ×2 (08:28→21:02)
[2019-06-13] MEDS: POTASSIUM CHLORIDE 20 MEQ POWDER PACKET GT SCH (08:29)
[2019-06-13] MEDS: ACIDOPHILUS/BULGARICUS CHEW TAB GT SCH ×2 (08:29→21:02)
[2019-06-13] MEDS: BISACODYL 10 MG SUPP.RECT RC SCH (08:29)
[2019-06-13] MEDS: COD LIVER OIL/ZINC OXIDE OINT 113 GM TUBE TOP SCH ×2 (08:30→21:05)
[2019-06-13] MEDS: HYDROGEN PEROXIDE 3% 118 ML BOTTLE TP SCH ×2 (09:14→21:09)
[2019-06-13] MEDS: GLUCERNA 1.2 1000ML LIQUID GT PRN (17:38)
[2019-06-13 20:00] VITALS: BP 103/64
[2019-06-13] MEDS: ATORVASTATIN 10 MG TABLET GT SCH (21:02)
[2019-06-13] MEDS: FERROUS SULFATE 330 MG/7.5 ML UDC- FOR SA ONLY GT SCH (21:02)
[2019-06-13] MEDS: INSULIN REGULAR, HUMAN 300 UNIT/3 ML VIAL SQ PRN (21:22)
[2019-06-14] MEDS: SODIUM CHLORIDE 5% OPHT OINT 3.5 GM TUBE RIGHTEYE SCH ×6 (01:56→21:28)
[2019-06-14] MEDS: POLYVINYL ALCOHOL OPHT DROPS 15 ML BOTTLE EACHEYE SCH ×6 (04:00→20:00)
[2019-06-14] MEDS: LEVOTHYROXINE SODIUM 50 MCG TABLET GT SCH (05:06)
[2019-06-14] MEDS: PANTOPRAZOLE ORAL SUSPENSION 40 MG SUSPDR.PKT GT SCH (05:06)
[2019-06-14] MEDS: BLOOD SUGAR DIAGNOSTIC 1 EACH STRIP VI SCH ×3 (05:21→21:42)
[2019-06-14] MEDS: INSULIN REGULAR, HUMAN 300 UNIT/3 ML VIAL SQ PRN ×3 (05:24→21:45)
[2019-06-14] MEDS: INSULIN GLARGINE,HUM 300 UNITS/3 ML CARTRIDGE SQ SCH ×2 (05:25→18:10)
[2019-06-14 08:07] VITALS: BP 96/60
[2019-06-14] MEDS: DOCUSATE SODIUM 100 MG/10 ML LIQUID UDC GT SCH ×2 (08:44→21:26)
[2019-06-14] MEDS: ACIDOPHILUS/BULGARICUS CHEW TAB GT SCH ×2 (08:45→21:26)
[2019-06-14] MEDS: POTASSIUM CHLORIDE 20 MEQ POWDER PACKET GT SCH (08:45)
[2019-06-14] MEDS: COD LIVER OIL/ZINC OXIDE OINT 113 GM TUBE TOP SCH ×2 (08:45→21:28)
[2019-06-14] MEDS: HYDROGEN PEROXIDE 3% 118 ML BOTTLE TP SCH ×2 (09:00→21:20)
[2019-06-14] MEDS: GLUCERNA 1.2 1000ML LIQUID GT PRN (14:13)
--- NOTE | 2019-06-14 14:16 | NUR ---
SEEN BY DR. CERRATO AND WITH NNO.
[2019-06-14 20:00] VITALS: BP 106/66
--- NOTE | 2019-06-14 20:29 | NUR ---
Trached resident was received on [place] HT 50 vent with ordered settings. No signs of respiratory distress noted. Trach is secure and patent @ midline. Sxn'd small amounts of pale white thick secretions. No complications. Alarms are on/ audible. Spare trach/ambubag at bedside. Will continue to monitor.
[2019-06-14] MEDS: FERROUS SULFATE 330 MG/7.5 ML UDC- FOR SA ONLY GT SCH (21:26)
[2019-06-14] MEDS: ATORVASTATIN 10 MG TABLET GT SCH (21:28)
[2019-06-15] MEDS: SODIUM CHLORIDE 5% OPHT OINT 3.5 GM TUBE RIGHTEYE SCH ×6 (01:04→21:28)
[2019-06-15] MEDS: POLYVINYL ALCOHOL OPHT DROPS 15 ML BOTTLE EACHEYE SCH ×6 (04:22→20:00)
[2019-06-15] MEDS: LEVOTHYROXINE SODIUM 50 MCG TABLET GT SCH (05:01)
[2019-06-15] MEDS: PANTOPRAZOLE ORAL SUSPENSION 40 MG SUSPDR.PKT GT SCH (05:01)
[2019-06-15] MEDS: BLOOD SUGAR DIAGNOSTIC 1 EACH STRIP VI SCH ×3 (05:01→22:03)
[2019-06-15] MEDS: INSULIN GLARGINE,HUM 300 UNITS/3 ML CARTRIDGE SQ SCH ×2 (05:03→17:38)
[2019-06-15 08:05] VITALS: BP 102/69
[2019-06-15] MEDS: DOCUSATE SODIUM 100 MG/10 ML LIQUID UDC GT SCH ×2 (08:52→21:27)
[2019-06-15] MEDS: POTASSIUM CHLORIDE 20 MEQ POWDER PACKET GT SCH (08:54)
[2019-06-15] MEDS: ACIDOPHILUS/BULGARICUS CHEW TAB GT SCH ×2 (08:54→21:27)
[2019-06-15] MEDS: BISACODYL 10 MG SUPP.RECT RC SCH (08:56)
[2019-06-15] MEDS: COD LIVER OIL/ZINC OXIDE OINT 113 GM TUBE TOP SCH ×2 (08:59→21:28)
[2019-06-15] MEDS: HYDROGEN PEROXIDE 3% 118 ML BOTTLE TP SCH ×2 (09:00→21:04)
[2019-06-15] MEDS: GLUCERNA 1.2 1000ML LIQUID GT PRN (12:09)
[2019-06-15] MEDS: INSULIN REGULAR, HUMAN 300 UNIT/3 ML VIAL SQ PRN ×2 (13:29→22:07)
[2019-06-15 20:00] VITALS: BP 109/62
[2019-06-15] MEDS: ATORVASTATIN 10 MG TABLET GT SCH (21:27)
[2019-06-15] MEDS: FERROUS SULFATE 330 MG/7.5 ML UDC- FOR SA ONLY GT SCH (21:27)
[2019-06-16] MEDS: POLYVINYL ALCOHOL OPHT DROPS 15 ML BOTTLE EACHEYE SCH ×6 (00:07→20:19)
[2019-06-16] MEDS: SODIUM CHLORIDE 5% OPHT OINT 3.5 GM TUBE RIGHTEYE SCH ×6 (00:08→20:19)
[2019-06-16] MEDS: PANTOPRAZOLE ORAL SUSPENSION 40 MG SUSPDR.PKT GT SCH (05:08)
[2019-06-16] MEDS: LEVOTHYROXINE SODIUM 50 MCG TABLET GT SCH (05:08)
[2019-06-16] MEDS: INSULIN GLARGINE,HUM 300 UNITS/3 ML CARTRIDGE SQ SCH ×2 (05:12→18:10)
[2019-06-16] MEDS: BLOOD SUGAR DIAGNOSTIC 1 EACH STRIP VI SCH ×3 (05:12→21:28)
[2019-06-16 08:05] VITALS: BP 107/69
[2019-06-16] MEDS: HYDROGEN PEROXIDE 3% 118 ML BOTTLE TP SCH ×2 (09:00→21:42)
[2019-06-16] MEDS: DOCUSATE SODIUM 100 MG/10 ML LIQUID UDC GT SCH ×2 (09:05→20:51)
[2019-06-16] MEDS: ACIDOPHILUS/BULGARICUS CHEW TAB GT SCH ×2 (09:06→20:51)
[2019-06-16] MEDS: POTASSIUM CHLORIDE 20 MEQ POWDER PACKET GT SCH (09:07)
[2019-06-16] MEDS: COD LIVER OIL/ZINC OXIDE OINT 113 GM TUBE TOP SCH ×2 (09:08→20:52)
[2019-06-16] MEDS: GLUCERNA 1.2 1000ML LIQUID GT PRN (09:09)
--- NOTE | 2019-06-16 09:35 | NUR ---
SEEN AND EXAMINED BY KAILA Bradshaw) AND WITH SARYO.
[2019-06-16] MEDS: INSULIN REGULAR, HUMAN 300 UNIT/3 ML VIAL SQ PRN ×2 (13:04→21:32)
--- NOTE | 2019-06-16 20:11 | NUR ---
Received pt on HT-50 ventilator with the following settings of AC-14, Vt-500, PEEP+5, FIO2-35%, trached with Portex#9 cuffed trach, which is in the place and secure. No respiratory distress noted. Airway care done, pt responded to physical stimuli. HME and Sx Guaman changed. Resus. bag and back up trach at bedside. Vent and alarms checked and reset.
[2019-06-16 20:18] VITALS: BP 150/83
[2019-06-16] MEDS: ATORVASTATIN 10 MG TABLET GT SCH (20:51)
[2019-06-16] MEDS: FERROUS SULFATE 330 MG/7.5 ML UDC- FOR SA ONLY GT SCH (20:51)
[2019-06-17] MEDS: POLYVINYL ALCOHOL OPHT DROPS 15 ML BOTTLE EACHEYE SCH ×6 (00:03→20:57)
[2019-06-17] MEDS: SODIUM CHLORIDE 5% OPHT OINT 3.5 GM TUBE RIGHTEYE SCH ×6 (00:03→20:58)
[2019-06-17] MEDS: GLUCERNA 1.2 1000ML LIQUID GT PRN (01:56)
[2019-06-17] MEDS: LEVOTHYROXINE SODIUM 50 MCG TABLET GT SCH (05:16)
[2019-06-17] MEDS: PANTOPRAZOLE ORAL SUSPENSION 40 MG SUSPDR.PKT GT SCH (05:16)
[2019-06-17] MEDS: INSULIN GLARGINE,HUM 300 UNITS/3 ML CARTRIDGE SQ SCH ×2 (05:22→17:55)
[2019-06-17] MEDS: BLOOD SUGAR DIAGNOSTIC 1 EACH STRIP VI SCH ×3 (05:22→21:07)
[2019-06-17] MEDS: HYDROGEN PEROXIDE 3% 118 ML BOTTLE TP SCH ×2 (07:35→20:37)
[2019-06-17 08:00] VITALS: BP 103/56
[2019-06-17] MEDS: POTASSIUM CHLORIDE 20 MEQ POWDER PACKET GT SCH (08:47)
[2019-06-17] MEDS: DOCUSATE SODIUM 100 MG/10 ML LIQUID UDC GT SCH ×2 (08:47→20:57)
[2019-06-17] MEDS: ACIDOPHILUS/BULGARICUS CHEW TAB GT SCH ×2 (08:47→20:57)
[2019-06-17] MEDS: COD LIVER OIL/ZINC OXIDE OINT 113 GM TUBE TOP SCH ×2 (08:51→20:58)
[2019-06-17] MEDS: BISACODYL 10 MG SUPP.RECT RC SCH (08:51)
--- NOTE | 2019-06-17 09:25 | NUR ---
SEEN BY KAILA ABREU AND WITH NNO.
[2019-06-17] MEDS: INSULIN REGULAR, HUMAN 300 UNIT/3 ML VIAL SQ PRN ×2 (14:16→21:08)
[2019-06-17 20:05] VITALS: BP 143/81
[2019-06-17] MEDS: FERROUS SULFATE 330 MG/7.5 ML UDC- FOR SA ONLY GT SCH (20:57)
[2019-06-17] MEDS: ATORVASTATIN 10 MG TABLET GT SCH (20:57)
[2019-06-18] MEDS: SODIUM CHLORIDE 5% OPHT OINT 3.5 GM TUBE RIGHTEYE SCH ×6 (01:18→20:58)
[2019-06-18] MEDS: POLYVINYL ALCOHOL OPHT DROPS 15 ML BOTTLE EACHEYE SCH ×7 (04:28→23:40)
[2019-06-18] MEDS: PANTOPRAZOLE ORAL SUSPENSION 40 MG SUSPDR.PKT GT SCH (05:14)
[2019-06-18] MEDS: LEVOTHYROXINE SODIUM 50 MCG TABLET GT SCH (05:14)
[2019-06-18] MEDS: BLOOD SUGAR DIAGNOSTIC 1 EACH STRIP VI SCH ×3 (05:15→21:03)
[2019-06-18] MEDS: INSULIN GLARGINE,HUM 300 UNITS/3 ML CARTRIDGE SQ SCH ×2 (05:15→18:11)
[2019-06-18] MEDS: GLUCERNA 1.2 1000ML LIQUID GT PRN (05:16)
[2019-06-18] MEDS: INSULIN REGULAR, HUMAN 300 UNIT/3 ML VIAL SQ PRN ×3 (05:17→21:04)
[2019-06-18 08:00] VITALS: BP 121/72
[2019-06-18] MEDS: COD LIVER OIL/ZINC OXIDE OINT 113 GM TUBE TOP SCH ×2 (08:40→20:59)
[2019-06-18] MEDS: DOCUSATE SODIUM 100 MG/10 ML LIQUID UDC GT SCH ×2 (08:40→20:58)
[2019-06-18] MEDS: ACIDOPHILUS/BULGARICUS CHEW TAB GT SCH ×2 (08:40→20:58)
[2019-06-18] MEDS: POTASSIUM CHLORIDE 20 MEQ POWDER PACKET GT SCH (08:40)
[2019-06-18] MEDS: HYDROGEN PEROXIDE 3% 118 ML BOTTLE TP SCH ×2 (09:00→21:18)
--- NOTE | 2019-06-18 18:35 | NUR ---
SEEN BY ANAID Maguire AND DR. PADGETT AND WITH NNO.
[2019-06-18 20:11] VITALS: BP 142/75
[2019-06-18] MEDS: FERROUS SULFATE 330 MG/7.5 ML UDC- FOR SA ONLY GT SCH (20:58)
[2019-06-18] MEDS: ATORVASTATIN 10 MG TABLET GT SCH (20:58)
[2019-06-19] MEDS: SODIUM CHLORIDE 5% OPHT OINT 3.5 GM TUBE RIGHTEYE SCH ×6 (01:15→20:46)
[2019-06-19] MEDS: POLYVINYL ALCOHOL OPHT DROPS 15 ML BOTTLE EACHEYE SCH ×5 (04:00→20:36)
[2019-06-19] MEDS: PANTOPRAZOLE ORAL SUSPENSION 40 MG SUSPDR.PKT GT SCH (05:26)
[2019-06-19] MEDS: LEVOTHYROXINE SODIUM 50 MCG TABLET GT SCH (05:26)
[2019-06-19] MEDS: INSULIN GLARGINE,HUM 300 UNITS/3 ML CARTRIDGE SQ SCH ×2 (05:30→17:18)
[2019-06-19] MEDS: GLUCERNA 1.2 1000ML LIQUID GT PRN (05:31)
[2019-06-19] MEDS: BLOOD SUGAR DIAGNOSTIC 1 EACH STRIP VI SCH ×3 (05:31→22:01)
[2019-06-19] MEDS: INSULIN REGULAR, HUMAN 300 UNIT/3 ML VIAL SQ PRN ×3 (05:34→22:03)
[2019-06-19 08:00] VITALS: BP 120/67
[2019-06-19] MEDS: BISACODYL 10 MG SUPP.RECT RC SCH (08:52)
[2019-06-19] MEDS: ACIDOPHILUS/BULGARICUS CHEW TAB GT SCH ×2 (08:52→20:41)
[2019-06-19] MEDS: DOCUSATE SODIUM 100 MG/10 ML LIQUID UDC GT SCH ×2 (08:52→20:38)
[2019-06-19] MEDS: COD LIVER OIL/ZINC OXIDE OINT 113 GM TUBE TOP SCH ×2 (08:52→20:46)
[2019-06-19] MEDS: POTASSIUM CHLORIDE 20 MEQ POWDER PACKET GT SCH (08:52)
[2019-06-19] MEDS: HYDROGEN PEROXIDE 3% 118 ML BOTTLE TP SCH ×2 (09:00→20:36)
[2019-06-19 20:00] VITALS: BP 131/70
[2019-06-19] MEDS: FERROUS SULFATE 330 MG/7.5 ML UDC- FOR SA ONLY GT SCH (20:41)
[2019-06-19] MEDS: ATORVASTATIN 10 MG TABLET GT SCH (20:46)
[2019-06-20] MEDS: POLYVINYL ALCOHOL OPHT DROPS 15 ML BOTTLE EACHEYE SCH ×6 (00:09→20:42)
[2019-06-20] MEDS: GLUCERNA 1.2 1000ML LIQUID GT PRN ×2 (00:16→23:07)
[2019-06-20] MEDS: SODIUM CHLORIDE 5% OPHT OINT 3.5 GM TUBE RIGHTEYE SCH ×6 (01:00→20:42)
[2019-06-20] MEDS: PANTOPRAZOLE ORAL SUSPENSION 40 MG SUSPDR.PKT GT SCH (06:02)
[2019-06-20] MEDS: LEVOTHYROXINE SODIUM 50 MCG TABLET GT SCH (06:02)
[2019-06-20] MEDS: BLOOD SUGAR DIAGNOSTIC 1 EACH STRIP VI SCH ×3 (06:03→22:16)
[2019-06-20] MEDS: INSULIN GLARGINE,HUM 300 UNITS/3 ML CARTRIDGE SQ SCH ×2 (06:03→17:56)
[2019-06-20] MEDS: INSULIN REGULAR, HUMAN 300 UNIT/3 ML VIAL SQ PRN ×3 (06:04→22:17)
[2019-06-20] MEDS: DOCUSATE SODIUM 100 MG/10 ML LIQUID UDC GT SCH ×2 (08:41→20:42)
[2019-06-20] MEDS: ACIDOPHILUS/BULGARICUS CHEW TAB GT SCH ×2 (08:41→20:42)
[2019-06-20] MEDS: POTASSIUM CHLORIDE 20 MEQ POWDER PACKET GT SCH (08:42)
[2019-06-20] MEDS: COD LIVER OIL/ZINC OXIDE OINT 113 GM TUBE TOP SCH ×2 (08:43→20:42)
[2019-06-20] MEDS: HYDROGEN PEROXIDE 3% 118 ML BOTTLE TP SCH ×2 (09:00→20:39)
[2019-06-20 12:05] VITALS: BP 131/73
--- NOTE | 2019-06-20 19:51 | NUR ---
Pt received on HT-50 ventilator with the following settings of AC-14, Vt-500, PEEP+5, FIO2-35%, trached with Portex#9 cuffed trach, which is in the place and secure. No respiratory distress noted. Airway care done, pt responded to physical stimuli. HME changed. Resus. bag and back up trach at bedside. Vent and alarms checked and reset.
[2019-06-20 20:00] VITALS: BP 128/70
[2019-06-20] MEDS: FERROUS SULFATE 330 MG/7.5 ML UDC- FOR SA ONLY GT SCH (20:42)
[2019-06-20] MEDS: ATORVASTATIN 10 MG TABLET GT SCH (20:42)
[2019-06-21] MEDS: POLYVINYL ALCOHOL OPHT DROPS 15 ML BOTTLE EACHEYE SCH ×6 (00:09→20:00)
[2019-06-21] MEDS: SODIUM CHLORIDE 5% OPHT OINT 3.5 GM TUBE RIGHTEYE SCH ×6 (01:00→21:00)
[2019-06-21] MEDS: PANTOPRAZOLE ORAL SUSPENSION 40 MG SUSPDR.PKT GT SCH (05:36)
[2019-06-21] MEDS: LEVOTHYROXINE SODIUM 50 MCG TABLET GT SCH (05:36)
[2019-06-21] MEDS: BLOOD SUGAR DIAGNOSTIC 1 EACH STRIP VI SCH ×3 (05:37→22:16)
[2019-06-21] MEDS: INSULIN GLARGINE,HUM 300 UNITS/3 ML CARTRIDGE SQ SCH ×2 (05:37→17:26)
[2019-06-21] MEDS: INSULIN REGULAR, HUMAN 300 UNIT/3 ML VIAL SQ PRN ×3 (05:39→22:17)
[2019-06-21] MEDS: DOCUSATE SODIUM 100 MG/10 ML LIQUID UDC GT SCH ×2 (08:54→21:00)
[2019-06-21] MEDS: ACIDOPHILUS/BULGARICUS CHEW TAB GT SCH ×2 (08:54→21:00)
[2019-06-21] MEDS: BISACODYL 10 MG SUPP.RECT RC SCH (08:55)
[2019-06-21] MEDS: POTASSIUM CHLORIDE 20 MEQ POWDER PACKET GT SCH (08:55)
[2019-06-21] MEDS: COD LIVER OIL/ZINC OXIDE OINT 113 GM TUBE TOP SCH ×2 (08:55→21:00)
[2019-06-21] MEDS: HYDROGEN PEROXIDE 3% 118 ML BOTTLE TP SCH ×2 (09:00→21:13)
[2019-06-21 11:09] VITALS: BP 107/68
[2019-06-21] MEDS: GLUCERNA 1.2 1000ML LIQUID GT PRN (17:28)
[2019-06-21 20:40] VITALS: BP 154/87
[2019-06-21] MEDS: FERROUS SULFATE 330 MG/7.5 ML UDC- FOR SA ONLY GT SCH (21:00)
[2019-06-21] MEDS: ATORVASTATIN 10 MG TABLET GT SCH (21:00)
[2019-06-22] MEDS: POLYVINYL ALCOHOL OPHT DROPS 15 ML BOTTLE EACHEYE SCH ×6 (00:12→20:34)
[2019-06-22] MEDS: SODIUM CHLORIDE 5% OPHT OINT 3.5 GM TUBE RIGHTEYE SCH ×6 (01:00→20:50)
[2019-06-22] MEDS: LEVOTHYROXINE SODIUM 50 MCG TABLET GT SCH (06:09)
[2019-06-22] MEDS: PANTOPRAZOLE ORAL SUSPENSION 40 MG SUSPDR.PKT GT SCH (06:09)
[2019-06-22] MEDS: INSULIN GLARGINE,HUM 300 UNITS/3 ML CARTRIDGE SQ SCH ×2 (06:10→17:19)
[2019-06-22] MEDS: BLOOD SUGAR DIAGNOSTIC 1 EACH STRIP VI SCH ×3 (06:11→21:16)
[2019-06-22] MEDS: INSULIN REGULAR, HUMAN 300 UNIT/3 ML VIAL SQ PRN ×3 (06:12→21:19)
[2019-06-22] MEDS: DOCUSATE SODIUM 100 MG/10 ML LIQUID UDC GT SCH ×2 (08:55→20:49)
[2019-06-22] MEDS: POTASSIUM CHLORIDE 20 MEQ POWDER PACKET GT SCH (08:55)
[2019-06-22] MEDS: COD LIVER OIL/ZINC OXIDE OINT 113 GM TUBE TOP SCH ×2 (08:55→20:50)
[2019-06-22] MEDS: ACIDOPHILUS/BULGARICUS CHEW TAB GT SCH ×2 (08:55→20:50)
[2019-06-22] MEDS: HYDROGEN PEROXIDE 3% 118 ML BOTTLE TP SCH ×2 (09:28→21:39)
[2019-06-22 10:52] VITALS: BP 112/63
--- NOTE | 2019-06-22 18:48 | NUR ---
RAZIA Corrigan spoke with patient's daughter Mana [phone] and informed her that per CDC and [facility] decision to minimize the risk of subacute residents becoming sick with the COVID-19 virus, visitation to all LTC facilities will be suspended, effective immediately, and until further notice. Mana expressed understanding.
[2019-06-22] MEDS: ATORVASTATIN 10 MG TABLET GT SCH (20:50)
[2019-06-22] MEDS: FERROUS SULFATE 330 MG/7.5 ML UDC- FOR SA ONLY GT SCH (20:50)
[2019-06-22 20:51] VITALS: BP 129/78
[2019-06-23] MEDS: POLYVINYL ALCOHOL OPHT DROPS 15 ML BOTTLE EACHEYE SCH ×7 (00:04→23:06)
[2019-06-23] MEDS: SODIUM CHLORIDE 5% OPHT OINT 3.5 GM TUBE RIGHTEYE SCH ×6 (00:04→21:18)
[2019-06-23] MEDS: PANTOPRAZOLE ORAL SUSPENSION 40 MG SUSPDR.PKT GT SCH (05:43)
[2019-06-23] MEDS: LEVOTHYROXINE SODIUM 50 MCG TABLET GT SCH (05:44)
[2019-06-23] MEDS: INSULIN GLARGINE,HUM 300 UNITS/3 ML CARTRIDGE SQ SCH ×2 (05:44→17:04)
[2019-06-23] MEDS: BLOOD SUGAR DIAGNOSTIC 1 EACH STRIP VI SCH ×3 (05:44→21:21)
[2019-06-23] MEDS: INSULIN REGULAR, HUMAN 300 UNIT/3 ML VIAL SQ PRN ×3 (05:45→21:22)
[2019-06-23 08:00] VITALS: BP 153/82
[2019-06-23] MEDS: DOCUSATE SODIUM 100 MG/10 ML LIQUID UDC GT SCH ×2 (08:20→21:18)
[2019-06-23] MEDS: ACIDOPHILUS/BULGARICUS CHEW TAB GT SCH ×2 (08:20→21:18)
[2019-06-23] MEDS: POTASSIUM CHLORIDE 20 MEQ POWDER PACKET GT SCH (08:20)
[2019-06-23] MEDS: BISACODYL 10 MG SUPP.RECT RC SCH (08:20)
[2019-06-23] MEDS: COD LIVER OIL/ZINC OXIDE OINT 113 GM TUBE TOP SCH ×2 (08:21→21:18)
[2019-06-23] MEDS: HYDROGEN PEROXIDE 3% 118 ML BOTTLE TP SCH ×2 (09:03→18:51)
--- NOTE | 2019-06-23 09:33 | NUR ---
Pt received awake,trach connected to ventilator,no respiratory distress,no discomfort noted,afebrile temp 98.3 o2 sat 99%
[2019-06-23] MEDS: GLUCERNA 1.2 1000ML LIQUID GT PRN (13:42)
[2019-06-23 20:43] VITALS: BP 152/81
--- NOTE | 2019-06-23 21:15 | NUR ---
Patient is afebrile, trach intact and patent, connected to vent, suctioned with pale yellow secretions, 02 sat is 100%, no signs of any distress noted, kept clean and comfortable.
[2019-06-23] MEDS: FERROUS SULFATE 330 MG/7.5 ML UDC- FOR SA ONLY GT SCH (21:18)
[2019-06-23] MEDS: ATORVASTATIN 10 MG TABLET GT SCH (21:18)
[2019-06-24] MEDS: SODIUM CHLORIDE 5% OPHT OINT 3.5 GM TUBE RIGHTEYE SCH ×6 (01:12→21:08)
[2019-06-24] MEDS: POLYVINYL ALCOHOL OPHT DROPS 15 ML BOTTLE EACHEYE SCH ×6 (04:51→23:00)
[2019-06-24] MEDS: BLOOD SUGAR DIAGNOSTIC 1 EACH STRIP VI SCH ×3 (05:46→21:22)
[2019-06-24] MEDS: LEVOTHYROXINE SODIUM 50 MCG TABLET GT SCH (05:46)
[2019-06-24] MEDS: PANTOPRAZOLE ORAL SUSPENSION 40 MG SUSPDR.PKT GT SCH (05:46)
[2019-06-24] MEDS: INSULIN REGULAR, HUMAN 300 UNIT/3 ML VIAL SQ PRN ×3 (05:47→21:24)
[2019-06-24] MEDS: INSULIN GLARGINE,HUM 300 UNITS/3 ML CARTRIDGE SQ SCH ×2 (05:47→17:38)
[2019-06-24 08:00] VITALS: BP 118/62
[2019-06-24] MEDS: DOCUSATE SODIUM 100 MG/10 ML LIQUID UDC GT SCH ×2 (08:51→21:08)
[2019-06-24] MEDS: COD LIVER OIL/ZINC OXIDE OINT 113 GM TUBE TOP SCH ×2 (08:52→21:08)
[2019-06-24] MEDS: POTASSIUM CHLORIDE 20 MEQ POWDER PACKET GT SCH (08:52)
[2019-06-24] MEDS: ACIDOPHILUS/BULGARICUS CHEW TAB GT SCH ×2 (08:52→21:08)
[2019-06-24] MEDS: HYDROGEN PEROXIDE 3% 118 ML BOTTLE TP SCH ×2 (09:00→18:45)
[2019-06-24] MEDS: GLUCERNA 1.2 1000ML LIQUID GT PRN (12:34)
--- NOTE | 2019-06-24 16:30 | NUR ---
Pt is afebrile 97.4,no respiratory distress noted,no changes of condition noted,enteral feeding tolerated well,suctioned as needed.
--- NOTE | 2019-06-24 20:30 | NUR ---
Temperature is 100.0 Fahrenheit, trach is intact and patent, connected to vent, 02 sat is 99%, no respiratory distress noted, Irrigated supra pubic catheter and noted with thick yellow urine output, looks uncomfortable, Tylenol was given by nurse, will continue monitor, kept clean and comfortable.
[2019-06-24 20:38] VITALS: BP 105/80
[2019-06-24] MEDS: FERROUS SULFATE 330 MG/7.5 ML UDC- FOR SA ONLY GT SCH (21:08)
[2019-06-24] MEDS: ATORVASTATIN 10 MG TABLET GT SCH (21:08)
--- NOTE | 2019-06-24 22:00 | NUR ---
Temperature is 99.2 Fahrenheit, no signs of any distress noted, patient is sleeping comfortably, will continue monitor.
[2019-06-25] MEDS: SODIUM CHLORIDE 5% OPHT OINT 3.5 GM TUBE RIGHTEYE SCH ×6 (00:06→21:39)
[2019-06-25] MEDS: POLYVINYL ALCOHOL OPHT DROPS 15 ML BOTTLE EACHEYE SCH ×5 (04:25→20:00)
[2019-06-25] MEDS: LEVOTHYROXINE SODIUM 50 MCG TABLET GT SCH (05:35)
[2019-06-25] MEDS: BLOOD SUGAR DIAGNOSTIC 1 EACH STRIP VI SCH ×3 (05:35→21:41)
[2019-06-25] MEDS: PANTOPRAZOLE ORAL SUSPENSION 40 MG SUSPDR.PKT GT SCH (05:35)
[2019-06-25] MEDS: INSULIN GLARGINE,HUM 300 UNITS/3 ML CARTRIDGE SQ SCH ×2 (05:36→17:17)
[2019-06-25] MEDS: INSULIN REGULAR, HUMAN 300 UNIT/3 ML VIAL SQ PRN ×3 (05:37→22:11)
[2019-06-25 08:00] VITALS: BP 102/69
[2019-06-25] MEDS: DOCUSATE SODIUM 100 MG/10 ML LIQUID UDC GT SCH ×2 (08:32→21:39)
[2019-06-25] MEDS: POTASSIUM CHLORIDE 20 MEQ POWDER PACKET GT SCH (08:33)
[2019-06-25] MEDS: ACIDOPHILUS/BULGARICUS CHEW TAB GT SCH ×2 (08:33→21:39)
[2019-06-25] MEDS: BISACODYL 10 MG SUPP.RECT RC SCH (08:33)
[2019-06-25] MEDS: COD LIVER OIL/ZINC OXIDE OINT 113 GM TUBE TOP SCH ×2 (08:33→21:39)
[2019-06-25 09:26] VITALS: BP 102/69
[2019-06-25] MEDS: HYDROGEN PEROXIDE 3% 118 ML BOTTLE TP SCH ×2 (09:59→20:43)
--- NOTE | 2019-06-25 14:38 | NUR ---
Patient stable, no acute respiratory distress noted, repositioned q2hrs for comfort.
[2019-06-25 21:00] VITALS: BP 137/70
--- NOTE | 2019-06-25 21:27 | NUR ---
Temperature is 99.6, no SOB, no signs of any respiratory distress noted, fluids given as ordered , turned and repositioned, supra pubic catheter is draining well to yellow urine, good brett care rendered, kept clean and comfortable.
[2019-06-25] MEDS: ATORVASTATIN 10 MG TABLET GT SCH (21:39)
[2019-06-25] MEDS: FERROUS SULFATE 330 MG/7.5 ML UDC- FOR SA ONLY GT SCH (21:39)
[2019-06-26] MEDS: SODIUM CHLORIDE 5% OPHT OINT 3.5 GM TUBE RIGHTEYE SCH ×6 (01:00→21:52)
[2019-06-26] MEDS: POLYVINYL ALCOHOL OPHT DROPS 15 ML BOTTLE EACHEYE SCH ×6 (04:00→20:00)
[2019-06-26] MEDS: LEVOTHYROXINE SODIUM 50 MCG TABLET GT SCH (06:01)
[2019-06-26] MEDS: PANTOPRAZOLE ORAL SUSPENSION 40 MG SUSPDR.PKT GT SCH (06:01)
[2019-06-26] MEDS: BLOOD SUGAR DIAGNOSTIC 1 EACH STRIP VI SCH ×3 (06:02→21:52)
[2019-06-26] MEDS: INSULIN GLARGINE,HUM 300 UNITS/3 ML CARTRIDGE SQ SCH ×2 (06:21→17:14)
[2019-06-26] MEDS: INSULIN REGULAR, HUMAN 300 UNIT/3 ML VIAL SQ PRN ×3 (06:22→21:54)
[2019-06-26 08:10] LABS: BASOPHILS % (AUTO) 0.5 % (0.0-2.0); EOSINOPHILS # (AUTO) 0.3 K/uL (0.0-0.7); EOSINOPHILS % (AUTO) 4.2 % (0.0-7.0); HEMATOCRIT 33.8 % (36.7-47.1); HEMOGLOBIN 11.2 g/dL (12.5-16.3); LYMPHOCYTES # (AUTO) 1.7 K/uL (20.0-40.0); MEAN CORPUSCULAR HEMOGLOBIN 28.7 uug (23.8-33.4); MEAN CORPUSCULAR HGB CONC 33 g/dL (32.5-36.3); MEAN CORPUSCULAR VOLUME 86.7 fL (73.0-96.2); MONOCYTES # (AUTO) 0.6 K/uL (2.0-10.0); MONOCYTES % (AUTO) 9.3 % (0.0-11.0); NEUTROPHILS # (AUTO) 3.6 K/uL (1.8-8.9); PLATELET COUNT (AUTO) 232 K/uL (152-348); WHITE BLOOD COUNT (AUTO) 6.2 K/uL (3.6-10.2)
[2019-06-26 08:13] VITALS: BP 93/53
[2019-06-26 08:20] LABS: CREATININE 0.8 mg/dL (0.6-1.3); MAGNESIUM 2.3 mg/dL (1.8-2.4); PHOSPHOROUS 4.1 mg/dL (2.5-4.9)
[2019-06-26] MEDS: ACIDOPHILUS/BULGARICUS CHEW TAB GT SCH ×2 (08:26→21:51)
[2019-06-26] MEDS: POTASSIUM CHLORIDE 20 MEQ POWDER PACKET GT SCH (08:26)
[2019-06-26] MEDS: DOCUSATE SODIUM 100 MG/10 ML LIQUID UDC GT SCH ×2 (08:26→21:50)
[2019-06-26] MEDS: COD LIVER OIL/ZINC OXIDE OINT 113 GM TUBE TOP SCH ×2 (08:26→21:52)
[2019-06-26] MEDS: HYDROGEN PEROXIDE 3% 118 ML BOTTLE TP SCH ×2 (09:50→09:54)
--- NOTE | 2019-06-26 12:26 | NUR ---
Afebrile temp 97.6,seen and examined by Dr barrera ,aware of the abnormal labs results,no new orders.
[2019-06-26 20:00] VITALS: BP 130/78
[2019-06-26] MEDS: FERROUS SULFATE 330 MG/7.5 ML UDC- FOR SA ONLY GT SCH (21:51)
[2019-06-26] MEDS: ATORVASTATIN 10 MG TABLET GT SCH (21:51)
[2019-06-27] MEDS: SODIUM CHLORIDE 5% OPHT OINT 3.5 GM TUBE RIGHTEYE SCH ×6 (01:00→21:46)
[2019-06-27] MEDS: GLUCERNA 1.2 1000ML LIQUID GT PRN (02:00)
[2019-06-27] MEDS: POLYVINYL ALCOHOL OPHT DROPS 15 ML BOTTLE EACHEYE SCH ×6 (04:04→20:00)
[2019-06-27] MEDS: LEVOTHYROXINE SODIUM 50 MCG TABLET GT SCH (05:41)
[2019-06-27] MEDS: PANTOPRAZOLE ORAL SUSPENSION 40 MG SUSPDR.PKT GT SCH (05:41)
[2019-06-27] MEDS: INSULIN GLARGINE,HUM 300 UNITS/3 ML CARTRIDGE SQ SCH ×2 (05:42→18:40)
[2019-06-27] MEDS: BLOOD SUGAR DIAGNOSTIC 1 EACH STRIP VI SCH ×3 (05:42→21:47)
[2019-06-27] MEDS: HYDROGEN PEROXIDE 3% 118 ML BOTTLE TP SCH ×2 (07:47→19:33)
[2019-06-27 08:11] VITALS: BP 112/69
[2019-06-27] MEDS: DOCUSATE SODIUM 100 MG/10 ML LIQUID UDC GT SCH ×2 (08:17→21:46)
[2019-06-27] MEDS: POTASSIUM CHLORIDE 20 MEQ POWDER PACKET GT SCH (08:18)
[2019-06-27] MEDS: ACIDOPHILUS/BULGARICUS CHEW TAB GT SCH ×2 (08:18→21:46)
[2019-06-27] MEDS: COD LIVER OIL/ZINC OXIDE OINT 113 GM TUBE TOP SCH ×2 (08:19→21:47)
[2019-06-27] MEDS: BISACODYL 10 MG SUPP.RECT RC SCH (08:19)
[2019-06-27] MEDS: INSULIN REGULAR, HUMAN 300 UNIT/3 ML VIAL SQ PRN ×2 (15:29→22:06)
--- NOTE | 2019-06-27 18:09 | NUR ---
In stable condition,no respiratory distress,trach connected to ventilator,afebrile temp 97.4.
[2019-06-27 20:20] VITALS: BP 146/78
[2019-06-27] MEDS: ATORVASTATIN 10 MG TABLET GT SCH (21:46)
[2019-06-27] MEDS: FERROUS SULFATE 330 MG/7.5 ML UDC- FOR SA ONLY GT SCH (21:46)
[2019-06-28] MEDS: SODIUM CHLORIDE 5% OPHT OINT 3.5 GM TUBE RIGHTEYE SCH ×6 (01:36→21:52)
[2019-06-28] MEDS: GLUCERNA 1.2 1000ML LIQUID GT PRN (03:30)
[2019-06-28] MEDS: POLYVINYL ALCOHOL OPHT DROPS 15 ML BOTTLE EACHEYE SCH ×6 (04:00→20:00)
[2019-06-28] MEDS: LEVOTHYROXINE SODIUM 50 MCG TABLET GT SCH (06:01)
[2019-06-28] MEDS: PANTOPRAZOLE ORAL SUSPENSION 40 MG SUSPDR.PKT GT SCH (06:01)
[2019-06-28] MEDS: INSULIN GLARGINE,HUM 300 UNITS/3 ML CARTRIDGE SQ SCH ×2 (06:02→18:05)
[2019-06-28] MEDS: BLOOD SUGAR DIAGNOSTIC 1 EACH STRIP VI SCH ×3 (06:03→21:52)
[2019-06-28] MEDS: INSULIN REGULAR, HUMAN 300 UNIT/3 ML VIAL SQ PRN ×2 (06:05→14:16)
[2019-06-28 08:04] VITALS: BP 115/69
[2019-06-28] MEDS: DOCUSATE SODIUM 100 MG/10 ML LIQUID UDC GT SCH ×2 (08:38→21:49)
[2019-06-28] MEDS: COD LIVER OIL/ZINC OXIDE OINT 113 GM TUBE TOP SCH ×2 (08:38→21:52)
[2019-06-28] MEDS: POTASSIUM CHLORIDE 20 MEQ POWDER PACKET GT SCH (08:38)
[2019-06-28] MEDS: ACIDOPHILUS/BULGARICUS CHEW TAB GT SCH ×2 (08:38→21:50)
[2019-06-28] MEDS: HYDROGEN PEROXIDE 3% 118 ML BOTTLE TP SCH ×2 (09:32→21:03)
--- NOTE | 2019-06-28 19:03 | NUR ---
SEEN BY DR. CARVER AND WITH NNO.
[2019-06-28 20:10] VITALS: BP 115/72
[2019-06-28] MEDS: ATORVASTATIN 10 MG TABLET GT SCH (21:50)
[2019-06-28] MEDS: FERROUS SULFATE 330 MG/7.5 ML UDC- FOR SA ONLY GT SCH (21:50)
[2019-06-29] MEDS: SODIUM CHLORIDE 5% OPHT OINT 3.5 GM TUBE RIGHTEYE SCH ×6 (01:00→20:30)
[2019-06-29] MEDS: GLUCERNA 1.2 1000ML LIQUID GT PRN (04:30)
[2019-06-29] MEDS: POLYVINYL ALCOHOL OPHT DROPS 15 ML BOTTLE EACHEYE SCH ×6 (04:43→20:04)
[2019-06-29] MEDS: INSULIN GLARGINE,HUM 300 UNITS/3 ML CARTRIDGE SQ SCH ×2 (06:02→17:16)
[2019-06-29] MEDS: BLOOD SUGAR DIAGNOSTIC 1 EACH STRIP VI SCH ×3 (06:02→21:56)
[2019-06-29] MEDS: LEVOTHYROXINE SODIUM 50 MCG TABLET GT SCH (06:02)
[2019-06-29] MEDS: PANTOPRAZOLE ORAL SUSPENSION 40 MG SUSPDR.PKT GT SCH (06:02)
--- NOTE | 2019-06-29 07:40 | NUR ---
PT REC'D ON HT-50 VENT TOLERATING CURRENT VENT SETTINGS WELL, NO DISTRESS NOTED GIVEN IN AM REPORT. PT VENT'D VIA TRACHEOSTOMY, TUBE IN PLACE PATENT AND SECURE WITH TRACH TIE. INH NEB TX'S PRN PER MD ORDER, SXN'ING TO BE DONE NEEDED. VENT ALARMS AUDIBLE, CHECKED AND RESET. BVM AND BACK-UP TRACH AT BEDSIDE.
[2019-06-29 08:04] VITALS: BP 96/57
[2019-06-29] MEDS: COD LIVER OIL/ZINC OXIDE OINT 113 GM TUBE TOP SCH ×2 (08:22→20:29)
[2019-06-29] MEDS: BISACODYL 10 MG SUPP.RECT RC SCH (08:22)
[2019-06-29] MEDS: DOCUSATE SODIUM 100 MG/10 ML LIQUID UDC GT SCH ×2 (08:22→20:27)
[2019-06-29] MEDS: POTASSIUM CHLORIDE 20 MEQ POWDER PACKET GT SCH (08:22)
[2019-06-29] MEDS: ACIDOPHILUS/BULGARICUS CHEW TAB GT SCH ×2 (08:22→20:28)
[2019-06-29] MEDS: HYDROGEN PEROXIDE 3% 118 ML BOTTLE TP SCH ×2 (08:56→20:29)
[2019-06-29] MEDS: INSULIN REGULAR, HUMAN 300 UNIT/3 ML VIAL SQ PRN ×2 (13:47→21:57)
--- NOTE | 2019-06-29 20:10 | NUR ---
PT RECEIVED ON CONTINUOUS VENT, TRACH TUBE IN PLACE AND SECURED WITH TRACH TIE. AMBU BAG AND BACK UP TRACH AT BEDSIDE. TRACH CARE DONE. NO DISTRESS NOTED AT THIS TIME . SUCTION PRN. VENT ALARMS AUDIBLE, CHECKED AND RESET. WILL CONTINUE TO MONITOR.
[2019-06-29] MEDS: FERROUS SULFATE 330 MG/7.5 ML UDC- FOR SA ONLY GT SCH (20:28)
[2019-06-29 20:29] VITALS: BP 125/70
[2019-06-29] MEDS: ATORVASTATIN 10 MG TABLET GT SCH (20:29)
[2019-06-30] MEDS: POLYVINYL ALCOHOL OPHT DROPS 15 ML BOTTLE EACHEYE SCH ×7 (00:01→23:11)
[2019-06-30] MEDS: SODIUM CHLORIDE 5% OPHT OINT 3.5 GM TUBE RIGHTEYE SCH ×6 (01:00→21:21)
[2019-06-30] MEDS: GLUCERNA 1.2 1000ML LIQUID GT PRN ×2 (02:39→21:38)
[2019-06-30] MEDS: PANTOPRAZOLE ORAL SUSPENSION 40 MG SUSPDR.PKT GT SCH (05:13)
[2019-06-30] MEDS: BLOOD SUGAR DIAGNOSTIC 1 EACH STRIP VI SCH ×3 (05:13→21:21)
[2019-06-30] MEDS: INSULIN GLARGINE,HUM 300 UNITS/3 ML CARTRIDGE SQ SCH ×2 (05:15→17:11)
[2019-06-30] MEDS: LEVOTHYROXINE SODIUM 50 MCG TABLET GT SCH (05:16)
[2019-06-30 08:00] VITALS: BP 122/63
[2019-06-30] MEDS: COD LIVER OIL/ZINC OXIDE OINT 113 GM TUBE TOP SCH ×2 (08:32→21:12)
[2019-06-30] MEDS: DOCUSATE SODIUM 100 MG/10 ML LIQUID UDC GT SCH ×2 (08:32→21:11)
[2019-06-30] MEDS: ACIDOPHILUS/BULGARICUS CHEW TAB GT SCH ×2 (08:32→21:11)
[2019-06-30] MEDS: POTASSIUM CHLORIDE 20 MEQ POWDER PACKET GT SCH (08:32)
[2019-06-30] MEDS: HYDROGEN PEROXIDE 3% 118 ML BOTTLE TP SCH ×2 (09:00→21:21)
[2019-06-30] MEDS: INSULIN REGULAR, HUMAN 300 UNIT/3 ML VIAL SQ PRN ×2 (13:35→21:23)
--- NOTE | 2019-06-30 18:00 | NUR ---
SEEN AND EXAMINED BY KAILA HILL N.P. AND WITH SARYO.
[2019-06-30 20:13] VITALS: BP 115/65
[2019-06-30] MEDS: FERROUS SULFATE 330 MG/7.5 ML UDC- FOR SA ONLY GT SCH (21:11)
[2019-06-30] MEDS: ATORVASTATIN 10 MG TABLET GT SCH (21:11)
[2019-07-01] MEDS: SODIUM CHLORIDE 5% OPHT OINT 3.5 GM TUBE RIGHTEYE SCH ×6 (01:14→21:10)
[2019-07-01] MEDS: POLYVINYL ALCOHOL OPHT DROPS 15 ML BOTTLE EACHEYE SCH ×6 (04:31→23:10)
[2019-07-01] MEDS: PANTOPRAZOLE ORAL SUSPENSION 40 MG SUSPDR.PKT GT SCH (05:43)
[2019-07-01] MEDS: BLOOD SUGAR DIAGNOSTIC 1 EACH STRIP VI SCH ×3 (05:43→21:22)
[2019-07-01] MEDS: LEVOTHYROXINE SODIUM 50 MCG TABLET GT SCH (05:43)
[2019-07-01] MEDS: INSULIN GLARGINE,HUM 300 UNITS/3 ML CARTRIDGE SQ SCH ×2 (05:44→17:43)
[2019-07-01] MEDS: INSULIN REGULAR, HUMAN 300 UNIT/3 ML VIAL SQ PRN ×3 (05:45→21:21)
[2019-07-01 08:00] VITALS: BP 115/70
[2019-07-01] MEDS: DOCUSATE SODIUM 100 MG/10 ML LIQUID UDC GT SCH ×2 (08:46→21:09)
[2019-07-01] MEDS: ACIDOPHILUS/BULGARICUS CHEW TAB GT SCH ×2 (08:47→21:09)
[2019-07-01] MEDS: POTASSIUM CHLORIDE 20 MEQ POWDER PACKET GT SCH (08:47)
[2019-07-01] MEDS: COD LIVER OIL/ZINC OXIDE OINT 113 GM TUBE TOP SCH ×2 (08:47→21:10)
[2019-07-01] MEDS: BISACODYL 10 MG SUPP.RECT RC SCH (08:47)
[2019-07-01] MEDS: HYDROGEN PEROXIDE 3% 118 ML BOTTLE TP SCH ×2 (09:00→21:37)
[2019-07-01 20:49] VITALS: BP 128/74
[2019-07-01] MEDS: ATORVASTATIN 10 MG TABLET GT SCH (21:09)
[2019-07-01] MEDS: FERROUS SULFATE 330 MG/7.5 ML UDC- FOR SA ONLY GT SCH (21:09)
[2019-07-02] MEDS: SODIUM CHLORIDE 5% OPHT OINT 3.5 GM TUBE RIGHTEYE SCH ×6 (00:14→21:24)
[2019-07-02] MEDS: POLYVINYL ALCOHOL OPHT DROPS 15 ML BOTTLE EACHEYE SCH ×6 (03:05→23:38)
[2019-07-02] MEDS: LEVOTHYROXINE SODIUM 50 MCG TABLET GT SCH (05:31)
[2019-07-02] MEDS: BLOOD SUGAR DIAGNOSTIC 1 EACH STRIP VI SCH ×3 (05:31→21:29)
[2019-07-02] MEDS: PANTOPRAZOLE ORAL SUSPENSION 40 MG SUSPDR.PKT GT SCH (05:31)
[2019-07-02] MEDS: INSULIN REGULAR, HUMAN 300 UNIT/3 ML VIAL SQ PRN ×3 (05:32→21:31)
[2019-07-02] MEDS: INSULIN GLARGINE,HUM 300 UNITS/3 ML CARTRIDGE SQ SCH ×2 (05:32→17:30)
[2019-07-02 08:00] VITALS: BP 91/66
[2019-07-02] MEDS: ACIDOPHILUS/BULGARICUS CHEW TAB GT SCH ×2 (09:15→21:24)
[2019-07-02] MEDS: DOCUSATE SODIUM 100 MG/10 ML LIQUID UDC GT SCH ×2 (09:15→21:24)
[2019-07-02] MEDS: POTASSIUM CHLORIDE 20 MEQ POWDER PACKET GT SCH (09:15)
[2019-07-02] MEDS: COD LIVER OIL/ZINC OXIDE OINT 113 GM TUBE TOP SCH ×2 (09:15→21:24)
[2019-07-02 20:14] VITALS: BP 138/77
--- NOTE | 2019-07-02 20:20 | NUR ---
PT RECEIVED ON CONTINUOUS VENT, TRACH TUBE IN PLACE AND SECURED WITH TRACH TIE. AMBU BAG AND BACK UP TRACH AT BEDSIDE. TRACH CARE DONE. SUCTION PRN. VENT CHECKED, ALARMS WORKING WELL AND AUDIBLE. NO DISTRESS NOTED AT THIS TIME. WILL CONTINUE TO MONITOR.
[2019-07-02] MEDS: HYDROGEN PEROXIDE 3% 118 ML BOTTLE TP SCH (21:00)
[2019-07-02] MEDS: ATORVASTATIN 10 MG TABLET GT SCH (21:24)
[2019-07-02] MEDS: FERROUS SULFATE 330 MG/7.5 ML UDC- FOR SA ONLY GT SCH (21:24)
[2019-07-03] MEDS: SODIUM CHLORIDE 5% OPHT OINT 3.5 GM TUBE RIGHTEYE SCH ×6 (01:08→20:53)
[2019-07-03] MEDS: POLYVINYL ALCOHOL OPHT DROPS 15 ML BOTTLE EACHEYE SCH ×5 (03:01→20:00)
[2019-07-03] MEDS: GLUCERNA 1.2 1000ML LIQUID GT PRN (03:02)
[2019-07-03] MEDS: PANTOPRAZOLE ORAL SUSPENSION 40 MG SUSPDR.PKT GT SCH (05:05)
[2019-07-03] MEDS: BLOOD SUGAR DIAGNOSTIC 1 EACH STRIP VI SCH ×3 (05:05→22:21)
[2019-07-03] MEDS: LEVOTHYROXINE SODIUM 50 MCG TABLET GT SCH (05:05)
[2019-07-03] MEDS: INSULIN REGULAR, HUMAN 300 UNIT/3 ML VIAL SQ PRN ×3 (05:08→22:22)
[2019-07-03] MEDS: INSULIN GLARGINE,HUM 300 UNITS/3 ML CARTRIDGE SQ SCH ×2 (05:09→17:39)
[2019-07-03 08:00] VITALS: BP 100/58
[2019-07-03] MEDS: POTASSIUM CHLORIDE 20 MEQ POWDER PACKET GT SCH (08:41)
[2019-07-03] MEDS: ACIDOPHILUS/BULGARICUS CHEW TAB GT SCH ×2 (08:41→20:53)
[2019-07-03] MEDS: DOCUSATE SODIUM 100 MG/10 ML LIQUID UDC GT SCH ×2 (08:41→20:53)
[2019-07-03] MEDS: COD LIVER OIL/ZINC OXIDE OINT 113 GM TUBE TOP SCH ×2 (08:44→20:53)
[2019-07-03] MEDS: BISACODYL 10 MG SUPP.RECT RC SCH (08:44)
[2019-07-03] MEDS: HYDROGEN PEROXIDE 3% 118 ML BOTTLE TP SCH ×2 (09:00→21:49)
--- NOTE | 2019-07-03 14:08 | NUR ---
Seen and examined by Dr Nolan,with new orders noted.
--- NOTE | 2019-07-03 15:32 | NUR ---
Pharmacy Update for Today's 07/03/19 IDT meeting VS: Temp 97.3 BP 100/58 HR 57 LABS: (from 06/26/19) Wbc 6.2 H/H 11.2/33.8 Plt 232 Na 137 K 4.0 Cl 102 CO2 26 BUN/SCr 33/0.8 BS 167 Ca 9.3 phos 4.1 Mg 2.3 MEDICATION USE REVIEWED: > Pt not on any anti-psych or anti-seizure medications > Previously on phenytoin, neurology d/c'd on 04/30/19 after prolonged course of tapering. No seizures noted since d/c or during taper. Remains stable at this time > On moderate sliding scale insulin + 20 units Lantus AMHS, BS ranges 119/212 since last IDT > On KCl 40meq daily since 05/31/19; last K 4.0 > Pt on Synthroid 50mcg daily. TSH on 06/20/18 was 3.595 (0.358-3.740), within therapeutic range. > PRN MED USAGE: (May) Tylenol for pain used x 0 Tylenol for temp used x 0 NEW ORDERS NOTED: > KCl 20meq daily increased to 40meq daily 05/31, K now wnl > Rx rec for TSH level for annual monitoring with next labs. agreed and on order Patient reviewed and discussed in detail at today's IDT with no noted medication issues or concerns at this time. Rx rec for routine monitoring, in agreement. No further recs at this time, will continue to monitor and f/u level when available.
--- NOTE | 2019-07-03 15:33 | NUR ---
INTERDISCIPLINARY PLAN OF CARE CONFERENCE was held today. Patient's daughter was unable to attend the meeting. Dr. Nolan and the Interdisciplinary Team reviewed the current plan of care in detail. RN reported on patient's medical condition and recent BS findings. See RN IDT conference notes. No major changes in condition were reported. See also all other disciplines IDT notes and physician's progress notes for additional details.
[2019-07-03 20:00] VITALS: BP 139/78
[2019-07-03] MEDS: ATORVASTATIN 10 MG TABLET GT SCH (20:53)
[2019-07-03] MEDS: FERROUS SULFATE 330 MG/7.5 ML UDC- FOR SA ONLY GT SCH (20:53)
[2019-07-04] MEDS: POLYVINYL ALCOHOL OPHT DROPS 15 ML BOTTLE EACHEYE SCH ×6 (00:33→20:05)
[2019-07-04] MEDS: SODIUM CHLORIDE 5% OPHT OINT 3.5 GM TUBE RIGHTEYE SCH ×6 (01:26→20:17)
[2019-07-04] MEDS: GLUCERNA 1.2 1000ML LIQUID GT PRN (03:22)
[2019-07-04] MEDS: LEVOTHYROXINE SODIUM 50 MCG TABLET GT SCH (05:58)
[2019-07-04] MEDS: PANTOPRAZOLE ORAL SUSPENSION 40 MG SUSPDR.PKT GT SCH (05:58)
[2019-07-04] MEDS: INSULIN GLARGINE,HUM 300 UNITS/3 ML CARTRIDGE SQ SCH ×2 (05:59→18:02)
[2019-07-04] MEDS: BLOOD SUGAR DIAGNOSTIC 1 EACH STRIP VI SCH ×3 (06:00→22:26)
[2019-07-04 06:15] LABS: CREATININE 0.7 mg/dL (0.6-1.3); POTASSIUM 3.7 mmol/L (3.5-5.1)
[2019-07-04 06:30] LABS: THYROID STIMULATING HORMONE 2.128 mIU/mL (0.358-3.740)
[2019-07-04 08:30] VITALS: BP 133/77
[2019-07-04] MEDS: DOCUSATE SODIUM 100 MG/10 ML LIQUID UDC GT SCH ×2 (08:35→20:16)
[2019-07-04] MEDS: ACIDOPHILUS/BULGARICUS CHEW TAB GT SCH ×2 (08:35→20:16)
[2019-07-04] MEDS: COD LIVER OIL/ZINC OXIDE OINT 113 GM TUBE TOP SCH ×2 (08:37→20:17)
[2019-07-04] MEDS: POTASSIUM CHLORIDE 20 MEQ POWDER PACKET GT SCH (08:37)
[2019-07-04] MEDS: HYDROGEN PEROXIDE 3% 118 ML BOTTLE TP SCH ×2 (09:25→18:48)
--- NOTE | 2019-07-04 11:30 | NUR ---
Seen and examined by Dr Newman ,aware of the labs results,no new orders noted.
[2019-07-04] MEDS: INSULIN REGULAR, HUMAN 300 UNIT/3 ML VIAL SQ PRN ×2 (13:06→22:28)
[2019-07-04 20:00] VITALS: BP 116/70
[2019-07-04] MEDS: FERROUS SULFATE 330 MG/7.5 ML UDC- FOR SA ONLY GT SCH (20:16)
[2019-07-04] MEDS: ATORVASTATIN 10 MG TABLET GT SCH (20:16)
[2019-07-05] MEDS: SODIUM CHLORIDE 5% OPHT OINT 3.5 GM TUBE RIGHTEYE SCH ×6 (01:00→20:40)
[2019-07-05] MEDS: POLYVINYL ALCOHOL OPHT DROPS 15 ML BOTTLE EACHEYE SCH ×6 (04:00→20:38)
[2019-07-05] MEDS: LEVOTHYROXINE SODIUM 50 MCG TABLET GT SCH (05:44)
[2019-07-05] MEDS: PANTOPRAZOLE ORAL SUSPENSION 40 MG SUSPDR.PKT GT SCH (05:44)
[2019-07-05] MEDS: INSULIN GLARGINE,HUM 300 UNITS/3 ML CARTRIDGE SQ SCH ×2 (05:45→17:06)
[2019-07-05] MEDS: BLOOD SUGAR DIAGNOSTIC 1 EACH STRIP VI SCH ×3 (05:46→22:46)
[2019-07-05 08:30] VITALS: BP 116/74
[2019-07-05] MEDS: BISACODYL 10 MG SUPP.RECT RC SCH (08:40)
[2019-07-05] MEDS: ACIDOPHILUS/BULGARICUS CHEW TAB GT SCH ×2 (08:40→20:39)
[2019-07-05] MEDS: POTASSIUM CHLORIDE 20 MEQ POWDER PACKET GT SCH (08:40)
[2019-07-05] MEDS: DOCUSATE SODIUM 100 MG/10 ML LIQUID UDC GT SCH ×2 (08:40→20:38)
[2019-07-05] MEDS: COD LIVER OIL/ZINC OXIDE OINT 113 GM TUBE TOP SCH ×2 (08:41→20:41)
[2019-07-05] MEDS: HYDROGEN PEROXIDE 3% 118 ML BOTTLE TP SCH ×2 (09:00→21:26)
[2019-07-05] MEDS: INSULIN REGULAR, HUMAN 300 UNIT/3 ML VIAL SQ PRN ×2 (14:16→22:49)
[2019-07-05] MEDS: FERROUS SULFATE 330 MG/7.5 ML UDC- FOR SA ONLY GT SCH (20:39)
[2019-07-05] MEDS: ATORVASTATIN 10 MG TABLET GT SCH (20:39)
[2019-07-05 20:53] VITALS: BP 154/86
[2019-07-06] MEDS: SODIUM CHLORIDE 5% OPHT OINT 3.5 GM TUBE RIGHTEYE SCH ×6 (01:00→21:30)
[2019-07-06] MEDS: POLYVINYL ALCOHOL OPHT DROPS 15 ML BOTTLE EACHEYE SCH ×6 (04:00→20:00)
[2019-07-06] MEDS: PANTOPRAZOLE ORAL SUSPENSION 40 MG SUSPDR.PKT GT SCH (06:02)
[2019-07-06] MEDS: LEVOTHYROXINE SODIUM 50 MCG TABLET GT SCH (06:03)
[2019-07-06] MEDS: INSULIN GLARGINE,HUM 300 UNITS/3 ML CARTRIDGE SQ SCH ×2 (06:04→17:19)
[2019-07-06] MEDS: BLOOD SUGAR DIAGNOSTIC 1 EACH STRIP VI SCH ×3 (06:05→22:17)
[2019-07-06] MEDS: ACIDOPHILUS/BULGARICUS CHEW TAB GT SCH ×2 (08:16→21:29)
[2019-07-06] MEDS: DOCUSATE SODIUM 100 MG/10 ML LIQUID UDC GT SCH ×2 (08:16→21:28)
[2019-07-06] MEDS: COD LIVER OIL/ZINC OXIDE OINT 113 GM TUBE TOP SCH ×2 (08:17→21:30)
[2019-07-06] MEDS: POTASSIUM CHLORIDE 20 MEQ POWDER PACKET GT SCH (08:17)
[2019-07-06] MEDS: HYDROGEN PEROXIDE 3% 118 ML BOTTLE TP SCH ×2 (09:00→21:12)
[2019-07-06 09:50] VITALS: BP 130/75
[2019-07-06] MEDS: INSULIN REGULAR, HUMAN 300 UNIT/3 ML VIAL SQ PRN ×2 (14:30→22:20)
[2019-07-06 20:47] VITALS: BP 136/77
[2019-07-06] MEDS: FERROUS SULFATE 330 MG/7.5 ML UDC- FOR SA ONLY GT SCH (21:28)
[2019-07-06] MEDS: ATORVASTATIN 10 MG TABLET GT SCH (21:30)
[2019-07-07] MEDS: SODIUM CHLORIDE 5% OPHT OINT 3.5 GM TUBE RIGHTEYE SCH ×6 (00:09→21:12)
[2019-07-07] MEDS: POLYVINYL ALCOHOL OPHT DROPS 15 ML BOTTLE EACHEYE SCH ×6 (00:09→20:00)
[2019-07-07] MEDS: LEVOTHYROXINE SODIUM 50 MCG TABLET GT SCH (05:21)
[2019-07-07] MEDS: PANTOPRAZOLE ORAL SUSPENSION 40 MG SUSPDR.PKT GT SCH (05:21)
[2019-07-07] MEDS: BLOOD SUGAR DIAGNOSTIC 1 EACH STRIP VI SCH ×3 (05:26→21:58)
[2019-07-07] MEDS: INSULIN REGULAR, HUMAN 300 UNIT/3 ML VIAL SQ PRN ×3 (05:32→22:03)
[2019-07-07] MEDS: INSULIN GLARGINE,HUM 300 UNITS/3 ML CARTRIDGE SQ SCH ×2 (06:14→17:03)
[2019-07-07] MEDS: HYDROGEN PEROXIDE 3% 118 ML BOTTLE TP SCH ×2 (08:28→18:42)
[2019-07-07] MEDS: DOCUSATE SODIUM 100 MG/10 ML LIQUID UDC GT SCH ×2 (08:44→21:12)
[2019-07-07] MEDS: ACIDOPHILUS/BULGARICUS CHEW TAB GT SCH ×2 (08:44→21:12)
[2019-07-07] MEDS: POTASSIUM CHLORIDE 20 MEQ POWDER PACKET GT SCH (08:45)
[2019-07-07] MEDS: COD LIVER OIL/ZINC OXIDE OINT 113 GM TUBE TOP SCH ×2 (08:46→21:12)
[2019-07-07] MEDS: BISACODYL 10 MG SUPP.RECT RC SCH (08:46)
--- NOTE | 2019-07-07 10:00 | NUR ---
Seen and examined by Dr Newman ,no new orders noted.
[2019-07-07] MEDS: GLUCERNA 1.2 1000ML LIQUID GT PRN (10:36)
[2019-07-07 11:36] VITALS: BP 117/69
[2019-07-07 20:53] VITALS: BP 129/73
[2019-07-07] MEDS: FERROUS SULFATE 330 MG/7.5 ML UDC- FOR SA ONLY GT SCH (21:12)
[2019-07-07] MEDS: ATORVASTATIN 10 MG TABLET GT SCH (21:12)
[2019-07-08] MEDS: SODIUM CHLORIDE 5% OPHT OINT 3.5 GM TUBE RIGHTEYE SCH ×6 (00:43→20:59)
[2019-07-08] MEDS: POLYVINYL ALCOHOL OPHT DROPS 15 ML BOTTLE EACHEYE SCH ×6 (00:43→20:59)
[2019-07-08] MEDS: LEVOTHYROXINE SODIUM 50 MCG TABLET GT SCH (05:09)
[2019-07-08] MEDS: PANTOPRAZOLE ORAL SUSPENSION 40 MG SUSPDR.PKT GT SCH (05:09)
[2019-07-08] MEDS: INSULIN GLARGINE,HUM 300 UNITS/3 ML CARTRIDGE SQ SCH ×2 (05:19→17:35)
[2019-07-08] MEDS: BLOOD SUGAR DIAGNOSTIC 1 EACH STRIP VI SCH ×3 (05:19→22:05)
[2019-07-08] MEDS: INSULIN REGULAR, HUMAN 300 UNIT/3 ML VIAL SQ PRN ×3 (05:20→22:08)
[2019-07-08] MEDS: DOCUSATE SODIUM 100 MG/10 ML LIQUID UDC GT SCH ×2 (08:29→20:59)
[2019-07-08 08:30] VITALS: BP 94/58
[2019-07-08] MEDS: COD LIVER OIL/ZINC OXIDE OINT 113 GM TUBE TOP SCH ×2 (08:30→20:59)
[2019-07-08] MEDS: POTASSIUM CHLORIDE 20 MEQ POWDER PACKET GT SCH (08:30)
[2019-07-08] MEDS: ACIDOPHILUS/BULGARICUS CHEW TAB GT SCH ×2 (08:30→20:59)
[2019-07-08] MEDS: HYDROGEN PEROXIDE 3% 118 ML BOTTLE TP SCH ×2 (09:00→21:51)
[2019-07-08] MEDS: GLUCERNA 1.2 1000ML LIQUID GT PRN (09:08)
[2019-07-08] MEDS: FERROUS SULFATE 330 MG/7.5 ML UDC- FOR SA ONLY GT SCH (20:59)
[2019-07-08] MEDS: ATORVASTATIN 10 MG TABLET GT SCH (20:59)
[2019-07-08 21:07] VITALS: BP 105/57
[2019-07-09] MEDS: SODIUM CHLORIDE 5% OPHT OINT 3.5 GM TUBE RIGHTEYE SCH ×6 (00:23→21:34)
[2019-07-09] MEDS: POLYVINYL ALCOHOL OPHT DROPS 15 ML BOTTLE EACHEYE SCH ×6 (00:23→20:00)
[2019-07-09] MEDS: PANTOPRAZOLE ORAL SUSPENSION 40 MG SUSPDR.PKT GT SCH (05:02)
[2019-07-09] MEDS: BLOOD SUGAR DIAGNOSTIC 1 EACH STRIP VI SCH ×3 (05:02→21:30)
[2019-07-09] MEDS: LEVOTHYROXINE SODIUM 50 MCG TABLET GT SCH (05:02)
[2019-07-09] MEDS: INSULIN REGULAR, HUMAN 300 UNIT/3 ML VIAL SQ PRN ×3 (05:13→21:33)
[2019-07-09] MEDS: INSULIN GLARGINE,HUM 300 UNITS/3 ML CARTRIDGE SQ SCH ×2 (05:14→17:26)
[2019-07-09] MEDS: POTASSIUM CHLORIDE 20 MEQ POWDER PACKET GT SCH (08:07)
[2019-07-09] MEDS: BISACODYL 10 MG SUPP.RECT RC SCH (08:07)
[2019-07-09] MEDS: ACIDOPHILUS/BULGARICUS CHEW TAB GT SCH ×2 (08:07→21:34)
[2019-07-09] MEDS: DOCUSATE SODIUM 100 MG/10 ML LIQUID UDC GT SCH ×2 (08:07→21:34)
[2019-07-09] MEDS: COD LIVER OIL/ZINC OXIDE OINT 113 GM TUBE TOP SCH ×2 (08:09→21:34)
[2019-07-09 08:30] VITALS: BP 116/62
[2019-07-09] MEDS: HYDROGEN PEROXIDE 3% 118 ML BOTTLE TP SCH ×2 (09:00→21:30)
--- NOTE | 2019-07-09 11:56 | NUR ---
Seen by Harmeet Smith with no new orders.
[2019-07-09 21:26] VITALS: BP 130/70
[2019-07-09] MEDS: FERROUS SULFATE 330 MG/7.5 ML UDC- FOR SA ONLY GT SCH (21:34)
[2019-07-09] MEDS: ATORVASTATIN 10 MG TABLET GT SCH (21:34)
[2019-07-10] MEDS: SODIUM CHLORIDE 5% OPHT OINT 3.5 GM TUBE RIGHTEYE SCH ×6 (01:00→21:09)
[2019-07-10] MEDS: POLYVINYL ALCOHOL OPHT DROPS 15 ML BOTTLE EACHEYE SCH ×6 (04:00→20:00)
[2019-07-10] MEDS: PANTOPRAZOLE ORAL SUSPENSION 40 MG SUSPDR.PKT GT SCH (05:19)
[2019-07-10] MEDS: LEVOTHYROXINE SODIUM 50 MCG TABLET GT SCH (05:21)
[2019-07-10] MEDS: BLOOD SUGAR DIAGNOSTIC 1 EACH STRIP VI SCH ×3 (05:21→21:23)
[2019-07-10] MEDS: INSULIN GLARGINE,HUM 300 UNITS/3 ML CARTRIDGE SQ SCH ×2 (05:29→17:39)
[2019-07-10] MEDS: INSULIN REGULAR, HUMAN 300 UNIT/3 ML VIAL SQ PRN ×3 (05:29→21:33)
[2019-07-10] MEDS: HYDROGEN PEROXIDE 3% 118 ML BOTTLE TP SCH ×2 (08:13→18:48)
[2019-07-10] MEDS: DOCUSATE SODIUM 100 MG/10 ML LIQUID UDC GT SCH ×2 (08:34→21:08)
[2019-07-10] MEDS: ACIDOPHILUS/BULGARICUS CHEW TAB GT SCH ×2 (08:35→21:09)
[2019-07-10] MEDS: POTASSIUM CHLORIDE 20 MEQ POWDER PACKET GT SCH (08:35)
[2019-07-10] MEDS: COD LIVER OIL/ZINC OXIDE OINT 113 GM TUBE TOP SCH ×2 (09:54→21:09)
--- NOTE | 2019-07-10 11:30 | NUR ---
SEEN BY SUSAN CALVO WITH NEW ORDERS NOTED.
[2019-07-10 11:53] VITALS: BP 116/74
--- NOTE | 2019-07-10 15:28 | NUR ---
This and Subacute Particle Board Supervisor Isidro Quinn called patient's daughter Mana [phone] and informed her that per advisement from [facility], [facility], and [facility], visitation restrictions must continue to remain in place for all correction care facilities in order to protect the health and safety of residents and staff. Therefore [facility] will continue to restrict all visitations, until further notice. Mana expressed understanding and thanked staff for taking care of the patient and keeping him safe.
[2019-07-10 20:44] VITALS: BP 114/77
[2019-07-10] MEDS: ATORVASTATIN 10 MG TABLET GT SCH (21:09)
[2019-07-10] MEDS: FERROUS SULFATE 330 MG/7.5 ML UDC- FOR SA ONLY GT SCH (21:09)
--- NOTE | 2019-07-10 23:13 | NUR ---
Resident was received on Dante HT 50 vent with ordered settings. No signs of respiratory distress noted. Trach is secure and patent @ midline. Sxn'd small amounts of pale white thick secretions. Vent circuit change tolerated well. No complications. Alarms are on/ audible. Spare trach/ambubag at bedside. Will continue to monitor throughout shift.
[2019-07-11] MEDS: SODIUM CHLORIDE 5% OPHT OINT 3.5 GM TUBE RIGHTEYE SCH ×6 (01:41→21:18)
[2019-07-11] MEDS: POLYVINYL ALCOHOL OPHT DROPS 15 ML BOTTLE EACHEYE SCH ×6 (04:28→20:34)
[2019-07-11] MEDS: BLOOD SUGAR DIAGNOSTIC 1 EACH STRIP VI SCH ×3 (05:04→22:22)
[2019-07-11] MEDS: LEVOTHYROXINE SODIUM 50 MCG TABLET GT SCH (05:04)
[2019-07-11] MEDS: PANTOPRAZOLE ORAL SUSPENSION 40 MG SUSPDR.PKT GT SCH (05:04)
[2019-07-11] MEDS: INSULIN REGULAR, HUMAN 300 UNIT/3 ML VIAL SQ PRN ×3 (05:34→22:24)
[2019-07-11] MEDS: INSULIN GLARGINE,HUM 300 UNITS/3 ML CARTRIDGE SQ SCH ×2 (05:34→18:22)
[2019-07-11 08:05] VITALS: BP 122/56
[2019-07-11] MEDS: POTASSIUM CHLORIDE 20 MEQ POWDER PACKET GT SCH (08:39)
[2019-07-11] MEDS: DOCUSATE SODIUM 100 MG/10 ML LIQUID UDC GT SCH ×2 (08:39→21:11)
[2019-07-11] MEDS: ACIDOPHILUS/BULGARICUS CHEW TAB GT SCH ×2 (08:39→21:18)
[2019-07-11] MEDS: COD LIVER OIL/ZINC OXIDE OINT 113 GM TUBE TOP SCH ×2 (08:40→21:19)
[2019-07-11] MEDS: BISACODYL 10 MG SUPP.RECT RC SCH (08:40)
[2019-07-11] MEDS: HYDROGEN PEROXIDE 3% 118 ML BOTTLE TP SCH ×2 (09:39→21:08)
--- NOTE | 2019-07-11 14:00 | NUR ---
Configuration Management Manager care done by Dr Dickerson.
[2019-07-11 20:00] VITALS: BP 122/68
[2019-07-11] MEDS: ATORVASTATIN 10 MG TABLET GT SCH (21:17)
[2019-07-11] MEDS: FERROUS SULFATE 330 MG/7.5 ML UDC- FOR SA ONLY GT SCH (21:18)
[2019-07-12] MEDS: POLYVINYL ALCOHOL OPHT DROPS 15 ML BOTTLE EACHEYE SCH ×6 (01:15→20:00)
[2019-07-12] MEDS: SODIUM CHLORIDE 5% OPHT OINT 3.5 GM TUBE RIGHTEYE SCH ×6 (01:15→21:16)
[2019-07-12] MEDS: LEVOTHYROXINE SODIUM 50 MCG TABLET GT SCH (05:18)
[2019-07-12] MEDS: PANTOPRAZOLE ORAL SUSPENSION 40 MG SUSPDR.PKT GT SCH (05:18)
[2019-07-12] MEDS: BLOOD SUGAR DIAGNOSTIC 1 EACH STRIP VI SCH ×3 (05:18→22:13)
[2019-07-12] MEDS: INSULIN GLARGINE,HUM 300 UNITS/3 ML CARTRIDGE SQ SCH ×2 (05:21→17:19)
[2019-07-12] MEDS: INSULIN REGULAR, HUMAN 300 UNIT/3 ML VIAL SQ PRN ×3 (06:40→22:15)
[2019-07-12] MEDS: HYDROGEN PEROXIDE 3% 118 ML BOTTLE TP SCH ×2 (09:18→20:28)
[2019-07-12] MEDS: COD LIVER OIL/ZINC OXIDE OINT 113 GM TUBE TOP SCH ×2 (09:47→21:17)
[2019-07-12] MEDS: DOCUSATE SODIUM 100 MG/10 ML LIQUID UDC GT SCH ×2 (09:47→21:16)
[2019-07-12] MEDS: ACIDOPHILUS/BULGARICUS CHEW TAB GT SCH ×2 (09:47→21:16)
[2019-07-12] MEDS: POTASSIUM CHLORIDE 20 MEQ POWDER PACKET GT SCH (09:48)
[2019-07-12 10:30] VITALS: BP 115/67
--- NOTE | 2019-07-12 18:46 | NUR ---
SEEN BY DR. LORENZO HO.
[2019-07-12 20:00] VITALS: BP 117/68
[2019-07-12] MEDS: FERROUS SULFATE 330 MG/7.5 ML UDC- FOR SA ONLY GT SCH (21:16)
[2019-07-12] MEDS: ATORVASTATIN 10 MG TABLET GT SCH (21:16)
[2019-07-13] MEDS: GLUCERNA 1.2 1000ML LIQUID GT PRN (00:29)
[2019-07-13] MEDS: SODIUM CHLORIDE 5% OPHT OINT 3.5 GM TUBE RIGHTEYE SCH ×6 (00:29→21:13)
[2019-07-13] MEDS: POLYVINYL ALCOHOL OPHT DROPS 15 ML BOTTLE EACHEYE SCH ×6 (00:29→20:00)
[2019-07-13] MEDS: LEVOTHYROXINE SODIUM 50 MCG TABLET GT SCH (05:10)
[2019-07-13] MEDS: PANTOPRAZOLE ORAL SUSPENSION 40 MG SUSPDR.PKT GT SCH (05:10)
[2019-07-13] MEDS: BLOOD SUGAR DIAGNOSTIC 1 EACH STRIP VI SCH ×3 (05:15→21:41)
[2019-07-13] MEDS: INSULIN GLARGINE,HUM 300 UNITS/3 ML CARTRIDGE SQ SCH ×2 (05:15→17:12)
[2019-07-13] MEDS: INSULIN REGULAR, HUMAN 300 UNIT/3 ML VIAL SQ PRN ×3 (05:16→21:43)
[2019-07-13] MEDS: ACIDOPHILUS/BULGARICUS CHEW TAB GT SCH ×2 (08:14→21:13)
[2019-07-13] MEDS: DOCUSATE SODIUM 100 MG/10 ML LIQUID UDC GT SCH ×2 (08:14→21:13)
[2019-07-13] MEDS: BISACODYL 10 MG SUPP.RECT RC SCH (08:15)
[2019-07-13] MEDS: COD LIVER OIL/ZINC OXIDE OINT 113 GM TUBE TOP SCH ×2 (08:15→21:13)
[2019-07-13] MEDS: POTASSIUM CHLORIDE 20 MEQ POWDER PACKET GT SCH (08:15)
[2019-07-13] MEDS: HYDROGEN PEROXIDE 3% 118 ML BOTTLE TP SCH ×2 (09:14→21:58)
[2019-07-13 10:30] VITALS: BP 121/72
--- NOTE | 2019-07-13 16:00 | NUR ---
SEEN BY TAZ NELSON AND WITH SARYO.
[2019-07-13 20:00] VITALS: BP 130/68
[2019-07-13] MEDS: FERROUS SULFATE 330 MG/7.5 ML UDC- FOR SA ONLY GT SCH (21:13)
[2019-07-13] MEDS: ATORVASTATIN 10 MG TABLET GT SCH (21:13)
[2019-07-14] MEDS: GLUCERNA 1.2 1000ML LIQUID GT PRN (00:16)
[2019-07-14] MEDS: POLYVINYL ALCOHOL OPHT DROPS 15 ML BOTTLE EACHEYE SCH ×6 (00:21→20:00)
[2019-07-14] MEDS: SODIUM CHLORIDE 5% OPHT OINT 3.5 GM TUBE RIGHTEYE SCH ×6 (00:21→21:46)
[2019-07-14] MEDS: PANTOPRAZOLE ORAL SUSPENSION 40 MG SUSPDR.PKT GT SCH (05:16)
[2019-07-14] MEDS: LEVOTHYROXINE SODIUM 50 MCG TABLET GT SCH (05:16)
[2019-07-14] MEDS: BLOOD SUGAR DIAGNOSTIC 1 EACH STRIP VI SCH ×3 (05:16→22:23)
[2019-07-14] MEDS: INSULIN GLARGINE,HUM 300 UNITS/3 ML CARTRIDGE SQ SCH ×2 (05:17→17:37)
[2019-07-14] MEDS: HYDROGEN PEROXIDE 3% 118 ML BOTTLE TP SCH ×2 (08:25→21:31)
[2019-07-14 08:26] VITALS: BP 106/68
[2019-07-14] MEDS: DOCUSATE SODIUM 100 MG/10 ML LIQUID UDC GT SCH ×2 (08:28→21:46)
[2019-07-14] MEDS: ACIDOPHILUS/BULGARICUS CHEW TAB GT SCH ×2 (08:28→21:46)
[2019-07-14] MEDS: POTASSIUM CHLORIDE 20 MEQ POWDER PACKET GT SCH (08:28)
[2019-07-14] MEDS: COD LIVER OIL/ZINC OXIDE OINT 113 GM TUBE TOP SCH ×2 (08:28→21:46)
[2019-07-14 11:22] VITALS: BP 175/75
[2019-07-14] MEDS: INSULIN REGULAR, HUMAN 300 UNIT/3 ML VIAL SQ PRN ×2 (13:49→22:25)
[2019-07-14 20:45] VITALS: BP 123/66
[2019-07-14] MEDS: FERROUS SULFATE 330 MG/7.5 ML UDC- FOR SA ONLY GT SCH (21:46)
[2019-07-14] MEDS: ATORVASTATIN 10 MG TABLET GT SCH (21:46)
[2019-07-15] MEDS: POLYVINYL ALCOHOL OPHT DROPS 15 ML BOTTLE EACHEYE SCH ×6 (00:37→20:56)
[2019-07-15] MEDS: SODIUM CHLORIDE 5% OPHT OINT 3.5 GM TUBE RIGHTEYE SCH ×6 (00:37→21:02)
[2019-07-15] MEDS: GLUCERNA 1.2 1000ML LIQUID GT PRN (03:05)
[2019-07-15] MEDS: LEVOTHYROXINE SODIUM 50 MCG TABLET GT SCH (05:13)
[2019-07-15] MEDS: PANTOPRAZOLE ORAL SUSPENSION 40 MG SUSPDR.PKT GT SCH (05:13)
[2019-07-15] MEDS: BLOOD SUGAR DIAGNOSTIC 1 EACH STRIP VI SCH ×3 (05:14→22:32)
[2019-07-15] MEDS: INSULIN GLARGINE,HUM 300 UNITS/3 ML CARTRIDGE SQ SCH ×2 (05:16→17:36)
[2019-07-15 08:00] VITALS: BP 108/71
[2019-07-15] MEDS: COD LIVER OIL/ZINC OXIDE OINT 113 GM TUBE TOP SCH ×2 (09:14→21:02)
[2019-07-15] MEDS: BISACODYL 10 MG SUPP.RECT RC SCH (09:14)
[2019-07-15] MEDS: DOCUSATE SODIUM 100 MG/10 ML LIQUID UDC GT SCH ×2 (09:14→21:01)
[2019-07-15] MEDS: ACIDOPHILUS/BULGARICUS CHEW TAB GT SCH ×2 (09:14→21:01)
[2019-07-15] MEDS: POTASSIUM CHLORIDE 20 MEQ POWDER PACKET GT SCH (09:14)
[2019-07-15] MEDS: HYDROGEN PEROXIDE 3% 118 ML BOTTLE TP SCH ×2 (09:15→21:46)
[2019-07-15] MEDS: INSULIN REGULAR, HUMAN 300 UNIT/3 ML VIAL SQ PRN ×2 (13:41→22:35)
[2019-07-15] MEDS: FERROUS SULFATE 330 MG/7.5 ML UDC- FOR SA ONLY GT SCH (21:01)
[2019-07-15] MEDS: ATORVASTATIN 10 MG TABLET GT SCH (21:02)
[2019-07-15 21:09] VITALS: BP 129/78
[2019-07-16] MEDS: POLYVINYL ALCOHOL OPHT DROPS 15 ML BOTTLE EACHEYE SCH ×7 (00:47→23:27)
[2019-07-16] MEDS: GLUCERNA 1.2 1000ML LIQUID GT PRN (01:07)
[2019-07-16] MEDS: SODIUM CHLORIDE 5% OPHT OINT 3.5 GM TUBE RIGHTEYE SCH ×6 (01:07→21:03)
[2019-07-16] MEDS: PANTOPRAZOLE ORAL SUSPENSION 40 MG SUSPDR.PKT GT SCH (05:05)
[2019-07-16] MEDS: LEVOTHYROXINE SODIUM 50 MCG TABLET GT SCH (05:05)
[2019-07-16] MEDS: BLOOD SUGAR DIAGNOSTIC 1 EACH STRIP VI SCH ×3 (05:05→21:11)
[2019-07-16] MEDS: INSULIN GLARGINE,HUM 300 UNITS/3 ML CARTRIDGE SQ SCH ×2 (05:12→18:37)
[2019-07-16] MEDS: INSULIN REGULAR, HUMAN 300 UNIT/3 ML VIAL SQ PRN ×3 (05:12→21:13)
[2019-07-16 08:00] VITALS: BP 117/73
--- NOTE | 2019-07-16 09:00 | NUR ---
SEEN BY ANAID Maguire AND WITH NNO.
[2019-07-16] MEDS: HYDROGEN PEROXIDE 3% 118 ML BOTTLE TP SCH ×2 (09:08→21:02)
[2019-07-16] MEDS: POTASSIUM CHLORIDE 20 MEQ POWDER PACKET GT SCH (09:42)
[2019-07-16] MEDS: ACIDOPHILUS/BULGARICUS CHEW TAB GT SCH ×2 (09:42→20:58)
[2019-07-16] MEDS: COD LIVER OIL/ZINC OXIDE OINT 113 GM TUBE TOP SCH ×2 (09:42→21:02)
[2019-07-16] MEDS: DOCUSATE SODIUM 100 MG/10 ML LIQUID UDC GT SCH ×2 (09:42→20:56)
--- NOTE | 2019-07-16 12:00 | NUR ---
SEEN BY DR. PADGETT AND WITH NNO.
[2019-07-16] MEDS: FERROUS SULFATE 330 MG/7.5 ML UDC- FOR SA ONLY GT SCH (20:57)
[2019-07-16] MEDS: ATORVASTATIN 10 MG TABLET GT SCH (21:01)
[2019-07-16 22:00] VITALS: BP 142/86
[2019-07-17] MEDS: SODIUM CHLORIDE 5% OPHT OINT 3.5 GM TUBE RIGHTEYE SCH ×6 (00:06→20:58)
[2019-07-17] MEDS: GLUCERNA 1.2 1000ML LIQUID GT PRN (00:34)
[2019-07-17] MEDS: POLYVINYL ALCOHOL OPHT DROPS 15 ML BOTTLE EACHEYE SCH ×5 (03:36→20:52)
[2019-07-17] MEDS: LEVOTHYROXINE SODIUM 50 MCG TABLET GT SCH (04:57)
[2019-07-17] MEDS: PANTOPRAZOLE ORAL SUSPENSION 40 MG SUSPDR.PKT GT SCH (04:57)
[2019-07-17] MEDS: INSULIN GLARGINE,HUM 300 UNITS/3 ML CARTRIDGE SQ SCH ×2 (05:01→17:41)
[2019-07-17] MEDS: BLOOD SUGAR DIAGNOSTIC 1 EACH STRIP VI SCH ×3 (05:03→22:00)
[2019-07-17 08:00] VITALS: BP 111/65
[2019-07-17] MEDS: POTASSIUM CHLORIDE 20 MEQ POWDER PACKET GT SCH (09:00)
[2019-07-17] MEDS: BISACODYL 10 MG SUPP.RECT RC SCH (09:00)
[2019-07-17] MEDS: DOCUSATE SODIUM 100 MG/10 ML LIQUID UDC GT SCH ×2 (09:00→20:54)
[2019-07-17] MEDS: ACIDOPHILUS/BULGARICUS CHEW TAB GT SCH ×2 (09:00→20:56)
[2019-07-17] MEDS: COD LIVER OIL/ZINC OXIDE OINT 113 GM TUBE TOP SCH ×2 (09:01→20:58)
[2019-07-17] MEDS: HYDROGEN PEROXIDE 3% 118 ML BOTTLE TP SCH ×2 (09:30→20:49)
--- NOTE | 2019-07-17 13:10 | NUR ---
Seen and examined by SUSAN CALVO, no new orders.
[2019-07-17] MEDS: INSULIN REGULAR, HUMAN 300 UNIT/3 ML VIAL SQ PRN ×2 (14:43→22:03)
[2019-07-17] MEDS: FERROUS SULFATE 330 MG/7.5 ML UDC- FOR SA ONLY GT SCH (20:55)
[2019-07-17] MEDS: ATORVASTATIN 10 MG TABLET GT SCH (20:56)
[2019-07-17 21:26] VITALS: BP 140/84
[2019-07-18] MEDS: POLYVINYL ALCOHOL OPHT DROPS 15 ML BOTTLE EACHEYE SCH ×6 (00:18→20:13)
[2019-07-18] MEDS: GLUCERNA 1.2 1000ML LIQUID GT PRN (00:20)
[2019-07-18] MEDS: SODIUM CHLORIDE 5% OPHT OINT 3.5 GM TUBE RIGHTEYE SCH ×6 (01:00→20:56)
[2019-07-18] MEDS: LEVOTHYROXINE SODIUM 50 MCG TABLET GT SCH (06:05)
[2019-07-18] MEDS: PANTOPRAZOLE ORAL SUSPENSION 40 MG SUSPDR.PKT GT SCH (06:05)
[2019-07-18] MEDS: INSULIN GLARGINE,HUM 300 UNITS/3 ML CARTRIDGE SQ SCH ×2 (06:06→17:33)
[2019-07-18] MEDS: BLOOD SUGAR DIAGNOSTIC 1 EACH STRIP VI SCH ×3 (06:07→22:18)
[2019-07-18] MEDS: INSULIN REGULAR, HUMAN 300 UNIT/3 ML VIAL SQ PRN ×3 (06:08→22:22)
[2019-07-18 08:00] VITALS: BP 113/72
[2019-07-18] MEDS: DOCUSATE SODIUM 100 MG/10 ML LIQUID UDC GT SCH ×2 (08:49→20:54)
[2019-07-18] MEDS: ACIDOPHILUS/BULGARICUS CHEW TAB GT SCH ×2 (08:50→20:54)
[2019-07-18] MEDS: POTASSIUM CHLORIDE 20 MEQ POWDER PACKET GT SCH (08:50)
[2019-07-18] MEDS: COD LIVER OIL/ZINC OXIDE OINT 113 GM TUBE TOP SCH ×2 (08:51→20:57)
[2019-07-18] MEDS: HYDROGEN PEROXIDE 3% 118 ML BOTTLE TP SCH ×2 (09:00→21:20)
[2019-07-18 20:00] VITALS: BP 160/83
[2019-07-18] MEDS: FERROUS SULFATE 330 MG/7.5 ML UDC- FOR SA ONLY GT SCH (20:54)
[2019-07-18] MEDS: ATORVASTATIN 10 MG TABLET GT SCH (20:55)
[2019-07-18 22:00] VITALS: BP 134/77
[2019-07-19] MEDS: GLUCERNA 1.2 1000ML LIQUID GT PRN (00:49)
[2019-07-19] MEDS: POLYVINYL ALCOHOL OPHT DROPS 15 ML BOTTLE EACHEYE SCH ×6 (00:49→20:42)
[2019-07-19] MEDS: SODIUM CHLORIDE 5% OPHT OINT 3.5 GM TUBE RIGHTEYE SCH ×6 (00:51→20:43)
[2019-07-19] MEDS: BLOOD SUGAR DIAGNOSTIC 1 EACH STRIP VI SCH ×3 (05:42→22:49)
[2019-07-19] MEDS: INSULIN REGULAR, HUMAN 300 UNIT/3 ML VIAL SQ PRN ×3 (05:44→22:50)
[2019-07-19] MEDS: LEVOTHYROXINE SODIUM 50 MCG TABLET GT SCH (05:51)
[2019-07-19] MEDS: PANTOPRAZOLE ORAL SUSPENSION 40 MG SUSPDR.PKT GT SCH (05:51)
[2019-07-19] MEDS: INSULIN GLARGINE,HUM 300 UNITS/3 ML CARTRIDGE SQ SCH ×2 (05:56→17:42)
[2019-07-19] MEDS: DOCUSATE SODIUM 100 MG/10 ML LIQUID UDC GT SCH ×2 (08:00→20:43)
[2019-07-19] MEDS: POTASSIUM CHLORIDE 20 MEQ POWDER PACKET GT SCH (08:06)
[2019-07-19] MEDS: COD LIVER OIL/ZINC OXIDE OINT 113 GM TUBE TOP SCH ×2 (08:06→20:44)
[2019-07-19] MEDS: ACIDOPHILUS/BULGARICUS CHEW TAB GT SCH ×2 (08:06→20:43)
[2019-07-19] MEDS: BISACODYL 10 MG SUPP.RECT RC SCH (08:07)
[2019-07-19 08:30] VITALS: BP 113/73
[2019-07-19] MEDS: HYDROGEN PEROXIDE 3% 118 ML BOTTLE TP SCH ×2 (09:10→20:35)
--- NOTE | 2019-07-19 18:38 | NUR ---
SEEN AND EXAMINED BY DR. CARVER, WITH NEW ORDERS, NOTED AND CARRIED OUT.
[2019-07-19 20:13] VITALS: BP 125/74
[2019-07-19] MEDS: FERROUS SULFATE 330 MG/7.5 ML UDC- FOR SA ONLY GT SCH (20:43)
[2019-07-19] MEDS: ATORVASTATIN 10 MG TABLET GT SCH (20:43)
[2019-07-20] MEDS: SODIUM CHLORIDE 5% OPHT OINT 3.5 GM TUBE RIGHTEYE SCH ×6 (01:13→20:57)
[2019-07-20] MEDS: GLUCERNA 1.2 1000ML LIQUID GT PRN ×2 (01:30→23:18)
[2019-07-20] MEDS: POLYVINYL ALCOHOL OPHT DROPS 15 ML BOTTLE EACHEYE SCH ×7 (03:48→23:01)
[2019-07-20] MEDS: PANTOPRAZOLE ORAL SUSPENSION 40 MG SUSPDR.PKT GT SCH (06:00)
[2019-07-20] MEDS: LEVOTHYROXINE SODIUM 50 MCG TABLET GT SCH (06:00)
[2019-07-20] MEDS: INSULIN GLARGINE,HUM 300 UNITS/3 ML CARTRIDGE SQ SCH ×2 (06:02→18:10)
[2019-07-20] MEDS: BLOOD SUGAR DIAGNOSTIC 1 EACH STRIP VI SCH ×3 (06:03→21:09)
[2019-07-20] MEDS: INSULIN REGULAR, HUMAN 300 UNIT/3 ML VIAL SQ PRN ×3 (06:05→21:09)
[2019-07-20 08:30] VITALS: BP 133/79
[2019-07-20] MEDS: HYDROGEN PEROXIDE 3% 118 ML BOTTLE TP SCH ×2 (09:00→21:22)
[2019-07-20] MEDS: ACIDOPHILUS/BULGARICUS CHEW TAB GT SCH ×2 (09:10→20:57)
[2019-07-20] MEDS: DOCUSATE SODIUM 100 MG/10 ML LIQUID UDC GT SCH ×2 (09:10→20:57)
[2019-07-20] MEDS: POTASSIUM CHLORIDE 20 MEQ POWDER PACKET GT SCH (09:10)
[2019-07-20] MEDS: COD LIVER OIL/ZINC OXIDE OINT 113 GM TUBE TOP SCH ×2 (09:11→20:57)
[2019-07-20 20:28] VITALS: BP 136/69
[2019-07-20] MEDS: FERROUS SULFATE 330 MG/7.5 ML UDC- FOR SA ONLY GT SCH (20:57)
[2019-07-20] MEDS: ATORVASTATIN 10 MG TABLET GT SCH (20:57)
[2019-07-21] MEDS: SODIUM CHLORIDE 5% OPHT OINT 3.5 GM TUBE RIGHTEYE SCH ×6 (00:03→20:49)
[2019-07-21] MEDS: POLYVINYL ALCOHOL OPHT DROPS 15 ML BOTTLE EACHEYE SCH ×6 (04:27→23:05)
[2019-07-21] MEDS: LEVOTHYROXINE SODIUM 50 MCG TABLET GT SCH (05:32)
[2019-07-21] MEDS: BLOOD SUGAR DIAGNOSTIC 1 EACH STRIP VI SCH ×3 (05:32→21:14)
[2019-07-21] MEDS: PANTOPRAZOLE ORAL SUSPENSION 40 MG SUSPDR.PKT GT SCH (05:32)
[2019-07-21] MEDS: INSULIN GLARGINE,HUM 300 UNITS/3 ML CARTRIDGE SQ SCH ×2 (05:33→17:40)
[2019-07-21] MEDS: INSULIN REGULAR, HUMAN 300 UNIT/3 ML VIAL SQ PRN ×3 (05:34→21:18)
[2019-07-21] MEDS: DOCUSATE SODIUM 100 MG/10 ML LIQUID UDC GT SCH ×2 (08:22→20:49)
[2019-07-21] MEDS: ACIDOPHILUS/BULGARICUS CHEW TAB GT SCH ×2 (08:23→20:49)
[2019-07-21] MEDS: COD LIVER OIL/ZINC OXIDE OINT 113 GM TUBE TOP SCH ×2 (08:24→20:50)
[2019-07-21] MEDS: POTASSIUM CHLORIDE 20 MEQ POWDER PACKET GT SCH (08:24)
[2019-07-21] MEDS: BISACODYL 10 MG SUPP.RECT RC SCH (08:24)
[2019-07-21] MEDS: HYDROGEN PEROXIDE 3% 118 ML BOTTLE TP SCH ×2 (09:00→20:32)
[2019-07-21 20:20] VITALS: BP 161/90
[2019-07-21] MEDS: FERROUS SULFATE 330 MG/7.5 ML UDC- FOR SA ONLY GT SCH (20:49)
[2019-07-21] MEDS: ATORVASTATIN 10 MG TABLET GT SCH (21:14)
[2019-07-21] MEDS: GLUCERNA 1.2 1000ML LIQUID GT PRN (23:05)
[2019-07-22] MEDS: SODIUM CHLORIDE 5% OPHT OINT 3.5 GM TUBE RIGHTEYE SCH ×6 (01:10→20:48)
[2019-07-22] MEDS: POLYVINYL ALCOHOL OPHT DROPS 15 ML BOTTLE EACHEYE SCH ×6 (04:20→23:12)
[2019-07-22] MEDS: BLOOD SUGAR DIAGNOSTIC 1 EACH STRIP VI SCH ×3 (05:30→21:15)
[2019-07-22] MEDS: INSULIN GLARGINE,HUM 300 UNITS/3 ML CARTRIDGE SQ SCH ×2 (05:30→17:15)
[2019-07-22] MEDS: PANTOPRAZOLE ORAL SUSPENSION 40 MG SUSPDR.PKT GT SCH (05:30)
[2019-07-22] MEDS: LEVOTHYROXINE SODIUM 50 MCG TABLET GT SCH (05:30)
[2019-07-22] MEDS: INSULIN REGULAR, HUMAN 300 UNIT/3 ML VIAL SQ PRN ×3 (05:31→21:18)
--- NOTE | 2019-07-22 06:19 | NUR ---
Resident's medicine was not available/in stock at start of shift. Notified Nursing Cycle Repairer of the meds that were not available & faxed order for Lipitor 10mg tablet (2100), Protonix 40mg packet (0600), and Synthroid 50mcg tablet (0600). Nursing solar panel installation supervisor provided medicine for the shift. Administered medicine as ordered, and signed/documented via standing [facility] orders.
[2019-07-22] MEDS: HYDROGEN PEROXIDE 3% 118 ML BOTTLE TP SCH ×2 (07:15→21:04)
[2019-07-22 08:05] VITALS: BP 126/77
[2019-07-22] MEDS: POTASSIUM CHLORIDE 20 MEQ POWDER PACKET GT SCH (08:52)
[2019-07-22] MEDS: COD LIVER OIL/ZINC OXIDE OINT 113 GM TUBE TOP SCH ×2 (08:52→20:48)
[2019-07-22] MEDS: ACIDOPHILUS/BULGARICUS CHEW TAB GT SCH ×2 (08:52→20:48)
[2019-07-22] MEDS: DOCUSATE SODIUM 100 MG/10 ML LIQUID UDC GT SCH ×2 (08:52→20:48)
[2019-07-22 20:40] VITALS: BP 100/66
[2019-07-22] MEDS: FERROUS SULFATE 330 MG/7.5 ML UDC- FOR SA ONLY GT SCH (20:48)
[2019-07-22] MEDS: ATORVASTATIN 10 MG TABLET GT SCH (20:48)
[2019-07-22] MEDS: GLUCERNA 1.2 1000ML LIQUID GT PRN (22:43)
[2019-07-23] MEDS: SODIUM CHLORIDE 5% OPHT OINT 3.5 GM TUBE RIGHTEYE SCH ×6 (01:09→20:50)
[2019-07-23] MEDS: POLYVINYL ALCOHOL OPHT DROPS 15 ML BOTTLE EACHEYE SCH ×5 (03:58→20:45)
[2019-07-23] MEDS: INSULIN GLARGINE,HUM 300 UNITS/3 ML CARTRIDGE SQ SCH ×2 (05:17→17:17)
[2019-07-23] MEDS: PANTOPRAZOLE ORAL SUSPENSION 40 MG SUSPDR.PKT GT SCH (05:17)
[2019-07-23] MEDS: LEVOTHYROXINE SODIUM 50 MCG TABLET GT SCH (05:17)
[2019-07-23] MEDS: BLOOD SUGAR DIAGNOSTIC 1 EACH STRIP VI SCH ×3 (05:18→20:59)
[2019-07-23] MEDS: INSULIN REGULAR, HUMAN 300 UNIT/3 ML VIAL SQ PRN ×3 (05:18→21:00)
[2019-07-23 06:15] LABS: BASOPHILS % (AUTO) 0.2 % (0.0-2.0); EOSINOPHILS # (AUTO) 0.3 K/uL (0.0-0.7); EOSINOPHILS % (AUTO) 2.3 % (0.0-7.0); HEMATOCRIT 37.2 % (36.7-47.1); HEMOGLOBIN 12.2 g/dL (12.5-16.3); LYMPHOCYTES # (AUTO) 1.8 K/uL (20.0-40.0); LYMPHOCYTES % (AUTO) 13.9 % (20.5-51.5); MEAN CORPUSCULAR HEMOGLOBIN 28.3 uug (23.8-33.4); MEAN CORPUSCULAR HGB CONC 33 g/dL (32.5-36.3); MEAN CORPUSCULAR VOLUME 86.5 fL (73.0-96.2); MONOCYTES # (AUTO) 0.9 K/uL (2.0-10.0); MONOCYTES % (AUTO) 6.8 % (0.0-11.0); NEUTROPHILS # (AUTO) 9.9 K/uL (1.8-8.9); NEUTROPHILS % (AUTO) 76.8 % (38.5-71.5); PLATELET COUNT (AUTO) 247 K/uL (152-348); WHITE BLOOD COUNT (AUTO) 12.9 K/uL (3.6-10.2)
[2019-07-23 06:25] LABS: CREATININE 0.8 mg/dL (0.6-1.3); POTASSIUM 3.9 mmol/L (3.5-5.1)
[2019-07-23] MEDS: HYDROGEN PEROXIDE 3% 118 ML BOTTLE TP SCH ×2 (08:16→20:50)
[2019-07-23] MEDS: DOCUSATE SODIUM 100 MG/10 ML LIQUID UDC GT SCH ×2 (08:40→20:46)
[2019-07-23] MEDS: ACIDOPHILUS/BULGARICUS CHEW TAB GT SCH ×2 (08:41→20:47)
[2019-07-23] MEDS: POTASSIUM CHLORIDE 20 MEQ POWDER PACKET GT SCH (08:41)
[2019-07-23] MEDS: BISACODYL 10 MG SUPP.RECT RC SCH (08:43)
[2019-07-23] MEDS: COD LIVER OIL/ZINC OXIDE OINT 113 GM TUBE TOP SCH ×2 (08:43→20:50)
--- NOTE | 2019-07-23 09:30 | NUR ---
Seen by Harmeet Smith, made aware of today's labs and patient's condition, wbc 12.9, stated that he will check it, no new orders given at this time.
[2019-07-23 10:47] VITALS: BP 102/62
[2019-07-23 20:13] VITALS: BP 104/70
[2019-07-23] MEDS: FERROUS SULFATE 330 MG/7.5 ML UDC- FOR SA ONLY GT SCH (20:46)
[2019-07-23] MEDS: ATORVASTATIN 10 MG TABLET GT SCH (20:49)
[2019-07-23 22:09] LABS: *BILIRUBIN,URIN NEGATIVE (NEGATIVE); *BLOOD, URINE 1+ (NEGATIVE); *CLARITY,URINE CLEAR (CLEAR); *COLOR,URINE YELLOW (YELLOW); *KETONES,URINE NEGATIVE (NEGATIVE); LEUKOCYTE ESTERASE ,URINE 3+ (NEGATIVE); NITRITE, URINE NEGATIVE (NEGATIVE); UGLUCOSE NEGATIVE (NEGATIVE)
[2019-07-23 22:13] LABS: BACTERIA,URINE FEW /HPF (NONE SEEN); SQUAMOUS EPITHELIAL CELL,UR FEW /HPF (NONE SEEN); WBC,URINE 80-100 /HPF (0-3)
[2019-07-24] MEDS: POLYVINYL ALCOHOL OPHT DROPS 15 ML BOTTLE EACHEYE SCH ×6 (00:12→20:47)
[2019-07-24] MEDS: SODIUM CHLORIDE 5% OPHT OINT 3.5 GM TUBE RIGHTEYE SCH ×6 (00:12→20:48)
[2019-07-24] MEDS: LEVOTHYROXINE SODIUM 50 MCG TABLET GT SCH (05:59)
[2019-07-24] MEDS: PANTOPRAZOLE ORAL SUSPENSION 40 MG SUSPDR.PKT GT SCH (05:59)
[2019-07-24] MEDS: BLOOD SUGAR DIAGNOSTIC 1 EACH STRIP VI SCH ×3 (06:00→21:04)
[2019-07-24] MEDS: INSULIN REGULAR, HUMAN 300 UNIT/3 ML VIAL SQ PRN ×3 (06:02→21:06)
[2019-07-24] MEDS: INSULIN GLARGINE,HUM 300 UNITS/3 ML CARTRIDGE SQ SCH ×2 (06:04→17:41)
[2019-07-24 06:29] LABS: BASOPHILS % (AUTO) 0.3 % (0.0-2.0); EOSINOPHILS # (AUTO) 0.2 K/uL (0.0-0.7); EOSINOPHILS % (AUTO) 2.4 % (0.0-7.0); HEMATOCRIT 35.9 % (36.7-47.1); HEMOGLOBIN 11.6 g/dL (12.5-16.3); LYMPHOCYTES # (AUTO) 2.1 K/uL (20.0-40.0); MEAN CORPUSCULAR HEMOGLOBIN 27.9 uug (23.8-33.4); MEAN CORPUSCULAR HGB CONC 32 g/dL (32.5-36.3); MEAN CORPUSCULAR VOLUME 86.2 fL (73.0-96.2); MONOCYTES # (AUTO) 0.8 K/uL (2.0-10.0); NEUTROPHILS # (AUTO) 5.6 K/uL (1.8-8.9); NEUTROPHILS % (AUTO) 64.3 % (38.5-71.5); PLATELET COUNT (AUTO) 221 K/uL (152-348); RED BLOOD CELL COUNT(AUTO) 4.16 MIL/uL (4.06-5.63); WHITE BLOOD COUNT (AUTO) 8.7 K/uL (3.6-10.2)
[2019-07-24 06:49] LABS: CREATININE 0.8 mg/dL (0.6-1.3); MAGNESIUM 2.2 mg/dL (1.8-2.4); PHOSPHOROUS 4.1 mg/dL (2.5-4.9); POTASSIUM 3.9 mmol/L (3.5-5.1)
[2019-07-24 08:00] VITALS: BP 96/63
[2019-07-24] MEDS: COD LIVER OIL/ZINC OXIDE OINT 113 GM TUBE TOP SCH ×2 (08:21→20:48)
[2019-07-24] MEDS: DOCUSATE SODIUM 100 MG/10 ML LIQUID UDC GT SCH ×2 (08:21→20:47)
[2019-07-24] MEDS: POTASSIUM CHLORIDE 20 MEQ POWDER PACKET GT SCH (08:21)
[2019-07-24] MEDS: ACIDOPHILUS/BULGARICUS CHEW TAB GT SCH ×2 (08:21→20:47)
[2019-07-24] MEDS: HYDROGEN PEROXIDE 3% 118 ML BOTTLE TP SCH ×2 (08:34→20:47)
--- NOTE | 2019-07-24 12:00 | NUR ---
Seen and examined by Maira CALVO ,no new orders noted.
[2019-07-24 20:11] VITALS: BP 100/66
[2019-07-24] MEDS: ATORVASTATIN 10 MG TABLET GT SCH (20:47)
[2019-07-24] MEDS: FERROUS SULFATE 330 MG/7.5 ML UDC- FOR SA ONLY GT SCH (20:47)
[2019-07-25] MEDS: SODIUM CHLORIDE 5% OPHT OINT 3.5 GM TUBE RIGHTEYE SCH ×6 (01:06→20:59)
[2019-07-25] MEDS: GLUCERNA 1.2 1000ML LIQUID GT PRN (02:30)
[2019-07-25] MEDS: POLYVINYL ALCOHOL OPHT DROPS 15 ML BOTTLE EACHEYE SCH ×6 (04:19→20:57)
[2019-07-25] MEDS: PANTOPRAZOLE ORAL SUSPENSION 40 MG SUSPDR.PKT GT SCH (05:49)
[2019-07-25] MEDS: LEVOTHYROXINE SODIUM 50 MCG TABLET GT SCH (05:49)
[2019-07-25] MEDS: BLOOD SUGAR DIAGNOSTIC 1 EACH STRIP VI SCH ×3 (05:50→21:56)
[2019-07-25] MEDS: INSULIN GLARGINE,HUM 300 UNITS/3 ML CARTRIDGE SQ SCH ×2 (05:54→17:21)
[2019-07-25] MEDS: INSULIN REGULAR, HUMAN 300 UNIT/3 ML VIAL SQ PRN ×3 (05:55→21:57)
[2019-07-25] MEDS: ACIDOPHILUS/BULGARICUS CHEW TAB GT SCH ×2 (08:26→20:58)
[2019-07-25] MEDS: DOCUSATE SODIUM 100 MG/10 ML LIQUID UDC GT SCH ×2 (08:26→20:57)
[2019-07-25] MEDS: POTASSIUM CHLORIDE 20 MEQ POWDER PACKET GT SCH (08:27)
[2019-07-25] MEDS: COD LIVER OIL/ZINC OXIDE OINT 113 GM TUBE TOP SCH ×2 (08:28→20:59)
[2019-07-25] MEDS: BISACODYL 10 MG SUPP.RECT RC SCH (08:28)
[2019-07-25 08:30] VITALS: BP 103/66
[2019-07-25] MEDS: HYDROGEN PEROXIDE 3% 118 ML BOTTLE TP SCH ×2 (09:00→21:42)
--- NOTE | 2019-07-25 16:00 | NUR ---
Dr Steele aware of the preliminary urine culture results,no new orders.
[2019-07-25 20:07] VITALS: BP 110/73
[2019-07-25] MEDS: FERROUS SULFATE 330 MG/7.5 ML UDC- FOR SA ONLY GT SCH (20:57)
[2019-07-25] MEDS: ATORVASTATIN 10 MG TABLET GT SCH (20:58)
[2019-07-26] MEDS: GLUCERNA 1.2 1000ML LIQUID GT PRN (00:30)
[2019-07-26] MEDS: SODIUM CHLORIDE 5% OPHT OINT 3.5 GM TUBE RIGHTEYE SCH ×6 (01:00→21:23)
--- NOTE | 2019-07-26 01:29 | NUR ---
PT ON CONT HT 50 VENT WITH PORTEX # [address] AND SECURED, WITH SAME CURRENT VENT SETTINGS, SUCTIONED LIGHT PALE YELL TINGE SECRETIONS, AND SUCTION MOUTH GENTLY WITH ROCIO JOHNSON WELL, NO VENT CHANGES MADE AT THIS TIME, CHECK CUFF,CHANGE HME, PT STABLE.Ricci MALDONADO [facility] Addendum: 07/26/19 at 0130 by VENESSA MALDONADO RT Amended: Links added.
[2019-07-26] MEDS: POLYVINYL ALCOHOL OPHT DROPS 15 ML BOTTLE EACHEYE SCH ×6 (04:45→20:56)
[2019-07-26] MEDS: LEVOTHYROXINE SODIUM 50 MCG TABLET GT SCH (05:57)
[2019-07-26] MEDS: PANTOPRAZOLE ORAL SUSPENSION 40 MG SUSPDR.PKT GT SCH (05:57)
[2019-07-26] MEDS: BLOOD SUGAR DIAGNOSTIC 1 EACH STRIP VI SCH ×3 (05:58→21:20)
[2019-07-26] MEDS: INSULIN GLARGINE,HUM 300 UNITS/3 ML CARTRIDGE SQ SCH ×2 (05:58→17:14)
[2019-07-26] MEDS: DOCUSATE SODIUM 100 MG/10 ML LIQUID UDC GT SCH ×2 (08:20→20:56)
[2019-07-26] MEDS: COD LIVER OIL/ZINC OXIDE OINT 113 GM TUBE TOP SCH ×2 (08:20→21:23)
[2019-07-26] MEDS: ACIDOPHILUS/BULGARICUS CHEW TAB GT SCH ×2 (08:20→20:56)
[2019-07-26] MEDS: POTASSIUM CHLORIDE 20 MEQ POWDER PACKET GT SCH (08:20)
[2019-07-26] MEDS: HYDROGEN PEROXIDE 3% 118 ML BOTTLE TP SCH ×2 (09:18→21:14)
[2019-07-26 11:03] VITALS: BP 121/79
[2019-07-26] MEDS: INSULIN REGULAR, HUMAN 300 UNIT/3 ML VIAL SQ PRN ×2 (13:50→21:21)
--- NOTE | 2019-07-26 18:55 | NUR ---
SEEN AND EXAMINED BY DR. CARVER. NOTIFIED DR. CARVER OF A FINAL URINE CULTURE WITH SENSITIVITY. HE NOTED THAT HE WILL MONITOR WITHOUT TX NOW. NEW ORDERS GIVEN NOTED AND CARRIED OUT.
--- NOTE | 2019-07-26 19:00 | NUR ---
magdalena rivera n.p. was in, no new orders.
[2019-07-26 19:39] VITALS: BP 102/55
[2019-07-26] MEDS: FERROUS SULFATE 330 MG/7.5 ML UDC- FOR SA ONLY GT SCH (20:56)
[2019-07-26] MEDS: ATORVASTATIN 10 MG TABLET GT SCH (20:57)
[2019-07-27] MEDS: SODIUM CHLORIDE 5% OPHT OINT 3.5 GM TUBE RIGHTEYE SCH ×6 (01:09→21:19)
[2019-07-27] MEDS: GLUCERNA 1.2 1000ML LIQUID GT PRN (01:10)
[2019-07-27] MEDS: POLYVINYL ALCOHOL OPHT DROPS 15 ML BOTTLE EACHEYE SCH ×7 (04:37→23:14)
[2019-07-27] MEDS: LEVOTHYROXINE SODIUM 50 MCG TABLET GT SCH (05:57)
[2019-07-27] MEDS: PANTOPRAZOLE ORAL SUSPENSION 40 MG SUSPDR.PKT GT SCH (05:57)
[2019-07-27] MEDS: INSULIN GLARGINE,HUM 300 UNITS/3 ML CARTRIDGE SQ SCH ×2 (05:57→17:18)
[2019-07-27] MEDS: BLOOD SUGAR DIAGNOSTIC 1 EACH STRIP VI SCH ×3 (05:58→21:57)
[2019-07-27] MEDS: DOCUSATE SODIUM 100 MG/10 ML LIQUID UDC GT SCH ×2 (08:54→21:18)
[2019-07-27] MEDS: POTASSIUM CHLORIDE 20 MEQ POWDER PACKET GT SCH (08:54)
[2019-07-27] MEDS: BISACODYL 10 MG SUPP.RECT RC SCH (08:54)
[2019-07-27] MEDS: COD LIVER OIL/ZINC OXIDE OINT 113 GM TUBE TOP SCH ×2 (08:54→21:19)
[2019-07-27] MEDS: ACIDOPHILUS/BULGARICUS CHEW TAB GT SCH ×2 (08:54→21:18)
[2019-07-27] MEDS: HYDROGEN PEROXIDE 3% 118 ML BOTTLE TP SCH ×2 (09:57→21:50)
[2019-07-27 11:27] VITALS: BP 121/79
[2019-07-27] MEDS: INSULIN REGULAR, HUMAN 300 UNIT/3 ML VIAL SQ PRN ×2 (13:50→22:04)
--- NOTE | 2019-07-27 16:13 | NUR ---
DR. SEARS STARTED PATIENT ON ROCEPHIN 1GM IM Q24HRS X 5 DAYS FOR UTI. WILL CONTINUE TO MONITOR.
[2019-07-27] MEDS: CEFTRIAXONE 1 G VIAL IM SCH (18:31)
[2019-07-27] MEDS: FERROUS SULFATE 330 MG/7.5 ML UDC- FOR SA ONLY GT SCH (21:18)
[2019-07-27] MEDS: ATORVASTATIN 10 MG TABLET GT SCH (21:19)
[2019-07-27 22:07] VITALS: BP 116/69
[2019-07-28] MEDS: GLUCERNA 1.2 1000ML LIQUID GT PRN (00:31)
[2019-07-28] MEDS: SODIUM CHLORIDE 5% OPHT OINT 3.5 GM TUBE RIGHTEYE SCH ×6 (01:10→20:15)
[2019-07-28] MEDS: POLYVINYL ALCOHOL OPHT DROPS 15 ML BOTTLE EACHEYE SCH ×5 (04:09→20:14)
[2019-07-28] MEDS: PANTOPRAZOLE ORAL SUSPENSION 40 MG SUSPDR.PKT GT SCH (05:37)
[2019-07-28] MEDS: LEVOTHYROXINE SODIUM 50 MCG TABLET GT SCH (05:37)
[2019-07-28] MEDS: BLOOD SUGAR DIAGNOSTIC 1 EACH STRIP VI SCH ×3 (05:43→21:25)
[2019-07-28] MEDS: INSULIN GLARGINE,HUM 300 UNITS/3 ML CARTRIDGE SQ SCH ×2 (05:46→17:33)
[2019-07-28] MEDS: POTASSIUM CHLORIDE 20 MEQ POWDER PACKET GT SCH (08:38)
[2019-07-28] MEDS: DOCUSATE SODIUM 100 MG/10 ML LIQUID UDC GT SCH ×2 (08:38→20:14)
[2019-07-28] MEDS: ACIDOPHILUS/BULGARICUS CHEW TAB GT SCH ×2 (08:38→20:14)
[2019-07-28] MEDS: COD LIVER OIL/ZINC OXIDE OINT 113 GM TUBE TOP SCH ×2 (08:50→20:15)
[2019-07-28] MEDS: HYDROGEN PEROXIDE 3% 118 ML BOTTLE TP SCH ×2 (09:00→20:15)
--- NOTE | 2019-07-28 10:20 | NUR ---
SEEN AND EXAMINED BY KAILA HILL, ENOCH. WITH NO NEW ORDERS.
[2019-07-28 10:49] VITALS: BP 119/69
[2019-07-28] MEDS: INSULIN REGULAR, HUMAN 300 UNIT/3 ML VIAL SQ PRN ×2 (14:08→21:31)
[2019-07-28] MEDS: CEFTRIAXONE 1 G VIAL IM SCH (17:31)
--- NOTE | 2019-07-28 18:58 | NUR ---
CONTINUE ON CEFTRIAXONE 1 GM X5DAYS FOR UTI. NO ADVERSE REACTION NOTED. NO ACUTE DISTRESS NOTED. TOLERATED TX ORDERED. WILL CONTINUE TO MONITOR.
[2019-07-28 20:07] VITALS: BP 124/72
[2019-07-28] MEDS: FERROUS SULFATE 330 MG/7.5 ML UDC- FOR SA ONLY GT SCH (20:14)
[2019-07-28] MEDS: ATORVASTATIN 10 MG TABLET GT SCH (20:14)
[2019-07-29] MEDS: POLYVINYL ALCOHOL OPHT DROPS 15 ML BOTTLE EACHEYE SCH ×7 (00:19→23:43)
[2019-07-29] MEDS: GLUCERNA 1.2 1000ML LIQUID GT PRN ×2 (00:19→22:40)
[2019-07-29] MEDS: SODIUM CHLORIDE 5% OPHT OINT 3.5 GM TUBE RIGHTEYE SCH ×6 (01:12→21:29)
[2019-07-29] MEDS: PANTOPRAZOLE ORAL SUSPENSION 40 MG SUSPDR.PKT GT SCH (05:22)
[2019-07-29] MEDS: LEVOTHYROXINE SODIUM 50 MCG TABLET GT SCH (05:22)
[2019-07-29] MEDS: BLOOD SUGAR DIAGNOSTIC 1 EACH STRIP VI SCH ×3 (05:23→21:38)
[2019-07-29] MEDS: INSULIN GLARGINE,HUM 300 UNITS/3 ML CARTRIDGE SQ SCH ×2 (05:39→17:35)
[2019-07-29] MEDS: INSULIN REGULAR, HUMAN 300 UNIT/3 ML VIAL SQ PRN ×3 (05:40→21:41)
[2019-07-29 08:00] VITALS: BP 118/66
[2019-07-29] MEDS: HYDROGEN PEROXIDE 3% 118 ML BOTTLE TP SCH ×2 (08:32→20:49)
[2019-07-29] MEDS: DOCUSATE SODIUM 100 MG/10 ML LIQUID UDC GT SCH ×2 (08:33→21:29)
[2019-07-29] MEDS: POTASSIUM CHLORIDE 20 MEQ POWDER PACKET GT SCH (08:34)
[2019-07-29] MEDS: ACIDOPHILUS/BULGARICUS CHEW TAB GT SCH ×2 (08:34→21:29)
[2019-07-29] MEDS: BISACODYL 10 MG SUPP.RECT RC SCH (08:34)
[2019-07-29] MEDS: COD LIVER OIL/ZINC OXIDE OINT 113 GM TUBE TOP SCH ×2 (08:35→21:29)
[2019-07-29] MEDS: CEFTRIAXONE 1 G VIAL IM SCH (17:34)
[2019-07-29 20:06] VITALS: BP 117/73
[2019-07-29] MEDS: FERROUS SULFATE 330 MG/7.5 ML UDC- FOR SA ONLY GT SCH (21:29)
[2019-07-29] MEDS: ATORVASTATIN 10 MG TABLET GT SCH (21:29)
--- NOTE | 2019-07-29 22:00 | NUR ---
Patient is afebrile, temperature is 98.1, no signs of any distress noted, on Rocephin IM for UTI, no adverse reactions noted. supra- pubic catheter is draining well to yellow urine, good brett care rendered, kept clean and comfortable.
[2019-07-30] MEDS: SODIUM CHLORIDE 5% OPHT OINT 3.5 GM TUBE RIGHTEYE SCH ×6 (00:40→21:05)
[2019-07-30] MEDS: POLYVINYL ALCOHOL OPHT DROPS 15 ML BOTTLE EACHEYE SCH ×5 (04:09→20:00)
[2019-07-30] MEDS: PANTOPRAZOLE ORAL SUSPENSION 40 MG SUSPDR.PKT GT SCH (05:08)
[2019-07-30] MEDS: LEVOTHYROXINE SODIUM 50 MCG TABLET GT SCH (05:08)
[2019-07-30] MEDS: BLOOD SUGAR DIAGNOSTIC 1 EACH STRIP VI SCH ×3 (05:37→22:10)
[2019-07-30] MEDS: INSULIN GLARGINE,HUM 300 UNITS/3 ML CARTRIDGE SQ SCH ×2 (05:41→18:05)
[2019-07-30 07:04] LABS: BASOPHILS % (AUTO) 0.3 % (0.0-2.0); CREATININE 0.7 mg/dL (0.6-1.3); EOSINOPHILS # (AUTO) 0.3 K/uL (0.0-0.7); EOSINOPHILS % (AUTO) 4.1 % (0.0-7.0); HEMATOCRIT 36.3 % (36.7-47.1); HEMOGLOBIN 11.9 g/dL (12.5-16.3); LYMPHOCYTES # (AUTO) 1.6 K/uL (20.0-40.0); LYMPHOCYTES % (AUTO) 19.7 % (20.5-51.5); MEAN CORPUSCULAR HEMOGLOBIN 28.1 uug (23.8-33.4); MEAN CORPUSCULAR HGB CONC 33 g/dL (32.5-36.3); MEAN CORPUSCULAR VOLUME 86.1 fL (73.0-96.2); MONOCYTES # (AUTO) 0.5 K/uL (2.0-10.0); MONOCYTES % (AUTO) 6.7 % (0.0-11.0); NEUTROPHILS # (AUTO) 5.6 K/uL (1.8-8.9); NEUTROPHILS % (AUTO) 69.2 % (38.5-71.5); PLATELET COUNT (AUTO) 199 K/uL (152-348); POTASSIUM 3.8 mmol/L (3.5-5.1); RED BLOOD CELL COUNT(AUTO) 4.22 MIL/uL (4.06-5.63); WHITE BLOOD COUNT (AUTO) 8.1 K/uL (3.6-10.2)
[2019-07-30 08:00] VITALS: BP 110/67
[2019-07-30] MEDS: DOCUSATE SODIUM 100 MG/10 ML LIQUID UDC GT SCH ×2 (08:17→21:04)
[2019-07-30] MEDS: ACIDOPHILUS/BULGARICUS CHEW TAB GT SCH ×2 (08:19→21:04)
[2019-07-30] MEDS: POTASSIUM CHLORIDE 20 MEQ POWDER PACKET GT SCH (08:19)
[2019-07-30] MEDS: COD LIVER OIL/ZINC OXIDE OINT 113 GM TUBE TOP SCH ×2 (08:20→21:05)
[2019-07-30] MEDS: HYDROGEN PEROXIDE 3% 118 ML BOTTLE TP SCH ×2 (09:10→21:32)
[2019-07-30] MEDS: INSULIN REGULAR, HUMAN 300 UNIT/3 ML VIAL SQ PRN ×2 (13:55→22:23)
[2019-07-30] MEDS: CEFTRIAXONE 1 G VIAL IM SCH (18:00)
[2019-07-30] MEDS: FERROUS SULFATE 330 MG/7.5 ML UDC- FOR SA ONLY GT SCH (21:04)
[2019-07-30] MEDS: ATORVASTATIN 10 MG TABLET GT SCH (21:04)
[2019-07-30 21:21] VITALS: BP 102/57
[2019-07-30] MEDS: GLUCERNA 1.2 1000ML LIQUID GT PRN (22:10)
--- NOTE | 2019-07-30 22:56 | NUR ---
Patient is afebrile, temperature is 98.2, remains on Rocephin IM daily for UTI, no adverse reactions noted, supra pubic catheter is draining well to yellow urine, fluids given as ordered, good brett care rendered, kept clean and comfortable.
[2019-07-31] MEDS: POLYVINYL ALCOHOL OPHT DROPS 15 ML BOTTLE EACHEYE SCH ×6 (00:34→20:34)
[2019-07-31] MEDS: SODIUM CHLORIDE 5% OPHT OINT 3.5 GM TUBE RIGHTEYE SCH ×6 (01:00→20:40)
[2019-07-31] MEDS: PANTOPRAZOLE ORAL SUSPENSION 40 MG SUSPDR.PKT GT SCH (05:02)
[2019-07-31] MEDS: BLOOD SUGAR DIAGNOSTIC 1 EACH STRIP VI SCH ×3 (05:03→21:45)
[2019-07-31] MEDS: LEVOTHYROXINE SODIUM 50 MCG TABLET GT SCH (05:03)
[2019-07-31] MEDS: INSULIN GLARGINE,HUM 300 UNITS/3 ML CARTRIDGE SQ SCH ×2 (05:03→17:00)
[2019-07-31] MEDS: INSULIN REGULAR, HUMAN 300 UNIT/3 ML VIAL SQ PRN ×3 (05:04→21:48)
[2019-07-31 08:10] VITALS: BP 117/73
[2019-07-31] MEDS: DOCUSATE SODIUM 100 MG/10 ML LIQUID UDC GT SCH ×2 (08:30→20:34)
[2019-07-31] MEDS: ACIDOPHILUS/BULGARICUS CHEW TAB GT SCH ×2 (08:31→20:35)
[2019-07-31] MEDS: POTASSIUM CHLORIDE 20 MEQ POWDER PACKET GT SCH (08:36)
[2019-07-31] MEDS: BISACODYL 10 MG SUPP.RECT RC SCH (08:38)
[2019-07-31] MEDS: COD LIVER OIL/ZINC OXIDE OINT 113 GM TUBE TOP SCH ×2 (08:39→20:40)
[2019-07-31] MEDS: HYDROGEN PEROXIDE 3% 118 ML BOTTLE TP SCH ×2 (09:02→21:48)
--- NOTE | 2019-07-31 14:12 | NUR ---
INTERDISCIPLINARY PLAN OF CARE CONFERENCE was held today. Patient's daughter was unable to participate in the meeting. Dr. Nolan and the Interdisciplinary Team reviewed the current plan of care in detail. RN reported on patient's medical condition and recent treatments. See RN IDT conference notes. No major changes in condition were reported. BS findings and medications discussed. See all other disciplines IDT notes and physician's progress notes for additional details.
--- NOTE | 2019-07-31 15:29 | NUR ---
Pharmacy Update for Today's 07/31/19 IDT meeting VS: Temp 97.5 BP 117/73 HR 54 LABS: (from 07/30/19) Wbc 8.1 H/H 11.9/36.3 Plt 199 Na 142 K 3.8 Cl 104 CO2 27 BUN/SCr 22/0.7 BS 130 Ca 9.4 MEDICATION USE REVIEWED: > Pt not on any anti-psych or anti-seizure medications > Previously on phenytoin, neurology d/c'd on 04/30/19 after prolonged course of tapering. No seizures noted since d/c or during taper. Remains stable at this time > On moderate sliding scale insulin + 20 units Lantus AMHS, BS ranges 103-208 since last IDT > On KCl 40meq daily since 05/31/19; last K 3.8 > Pt on Synthroid 50mcg daily. TSH on 07/04/19 was 2.128 (0.358-3.740), within therapeutic range. > PRN MED USAGE: (June) Tylenol for pain used x 1 Tylenol for temp used x 0 NEW ORDERS NOTED: > tSH resulted within therapeutic range > Rx rec for increase of Lantus from 20units AMHS to possible 22units AMHS per TDD SSI (~50% needs) Patient reviewed and discussed in detail at today's IDT and recommended for MD adjustment of Lantus per TDD SSI in past week and d/t yearly A1c resulting 7.3. MD agreed and stated would take a look himself and consider adjustment recommended per rx before making change. No further recs as pt otherwise stable. Will follow
[2019-07-31] MEDS: CEFTRIAXONE 1 G VIAL IM SCH (17:00)
[2019-07-31] MEDS: GLUCERNA 1.2 1000ML LIQUID GT PRN (17:06)
[2019-07-31 20:00] VITALS: BP 110/70
[2019-07-31] MEDS: FERROUS SULFATE 330 MG/7.5 ML UDC- FOR SA ONLY GT SCH (20:35)
[2019-07-31] MEDS: ATORVASTATIN 10 MG TABLET GT SCH (20:40)
[2019-08-01] MEDS: SODIUM CHLORIDE 5% OPHT OINT 3.5 GM TUBE RIGHTEYE SCH ×6 (00:51→20:43)
[2019-08-01] MEDS: POLYVINYL ALCOHOL OPHT DROPS 15 ML BOTTLE EACHEYE SCH ×6 (03:54→20:39)
[2019-08-01] MEDS: LEVOTHYROXINE SODIUM 50 MCG TABLET GT SCH (06:02)
[2019-08-01] MEDS: PANTOPRAZOLE ORAL SUSPENSION 40 MG SUSPDR.PKT GT SCH (06:02)
[2019-08-01] MEDS: BLOOD SUGAR DIAGNOSTIC 1 EACH STRIP VI SCH ×3 (06:04→22:07)
[2019-08-01] MEDS: INSULIN GLARGINE,HUM 300 UNITS/3 ML CARTRIDGE SQ SCH ×2 (06:04→18:07)
[2019-08-01] MEDS: INSULIN REGULAR, HUMAN 300 UNIT/3 ML VIAL SQ PRN ×3 (06:06→22:13)
[2019-08-01 08:00] VITALS: BP 120/64
[2019-08-01] MEDS: HYDROGEN PEROXIDE 3% 118 ML BOTTLE TP SCH ×2 (09:00→21:49)
[2019-08-01] MEDS: ACIDOPHILUS/BULGARICUS CHEW TAB GT SCH ×2 (09:45→20:42)
[2019-08-01] MEDS: DOCUSATE SODIUM 100 MG/10 ML LIQUID UDC GT SCH ×2 (09:45→20:39)
[2019-08-01] MEDS: POTASSIUM CHLORIDE 20 MEQ POWDER PACKET GT SCH (09:45)
[2019-08-01] MEDS: COD LIVER OIL/ZINC OXIDE OINT 113 GM TUBE TOP SCH ×2 (09:46→20:44)
[2019-08-01] MEDS: GLUCERNA 1.2 1000ML LIQUID GT PRN (18:28)
[2019-08-01 20:00] VITALS: BP 110/70
[2019-08-01] MEDS: FERROUS SULFATE 330 MG/7.5 ML UDC- FOR SA ONLY GT SCH (20:41)
[2019-08-01] MEDS: ATORVASTATIN 10 MG TABLET GT SCH (20:42)
[2019-08-02] MEDS: SODIUM CHLORIDE 5% OPHT OINT 3.5 GM TUBE RIGHTEYE SCH ×6 (01:00→20:43)
[2019-08-02] MEDS: POLYVINYL ALCOHOL OPHT DROPS 15 ML BOTTLE EACHEYE SCH ×6 (04:25→20:41)
[2019-08-02] MEDS: LEVOTHYROXINE SODIUM 50 MCG TABLET GT SCH (05:48)
[2019-08-02] MEDS: PANTOPRAZOLE ORAL SUSPENSION 40 MG SUSPDR.PKT GT SCH (05:48)
[2019-08-02] MEDS: BLOOD SUGAR DIAGNOSTIC 1 EACH STRIP VI SCH ×3 (05:49→22:01)
[2019-08-02] MEDS: INSULIN GLARGINE,HUM 300 UNITS/3 ML CARTRIDGE SQ SCH ×2 (05:50→17:16)
[2019-08-02] MEDS: INSULIN REGULAR, HUMAN 300 UNIT/3 ML VIAL SQ PRN ×3 (05:52→22:05)
[2019-08-02 08:00] VITALS: BP 108/67
[2019-08-02] MEDS: DOCUSATE SODIUM 100 MG/10 ML LIQUID UDC GT SCH ×2 (08:31→20:41)
[2019-08-02] MEDS: ACIDOPHILUS/BULGARICUS CHEW TAB GT SCH ×2 (08:32→20:42)
[2019-08-02] MEDS: POTASSIUM CHLORIDE 20 MEQ POWDER PACKET GT SCH (08:32)
[2019-08-02] MEDS: BISACODYL 10 MG SUPP.RECT RC SCH (08:34)
[2019-08-02] MEDS: COD LIVER OIL/ZINC OXIDE OINT 113 GM TUBE TOP SCH ×2 (08:34→20:44)
[2019-08-02] MEDS: HYDROGEN PEROXIDE 3% 118 ML BOTTLE TP SCH ×2 (09:47→20:57)
[2019-08-02] MEDS: GLUCERNA 1.2 1000ML LIQUID GT PRN (15:02)
--- NOTE | 2019-08-02 18:20 | NUR ---
EOS: No significant changes during this shift. Pt. remain non-verbal but responsive to tactile stimuli. Pt. remain stable with no acute distress. Skin care rendered. Pt. afebrile, no chills noted this shift. Pt. received supp x1, last BM: 07/30. Suprapubic cath remain patent and intact with clear urine output. Safety measures in place. Will endorse to oncoming shift accordingly.
[2019-08-02 20:00] VITALS: BP 100/60
--- NOTE | 2019-08-02 20:00 | NUR ---
SEEN BY TAZ KENDALL WITH NNO.
[2019-08-02] MEDS: FERROUS SULFATE 330 MG/7.5 ML UDC- FOR SA ONLY GT SCH (20:41)
[2019-08-02] MEDS: ATORVASTATIN 10 MG TABLET GT SCH (20:42)
[2019-08-03] MEDS: POLYVINYL ALCOHOL OPHT DROPS 15 ML BOTTLE EACHEYE SCH ×7 (00:21→23:05)
[2019-08-03] MEDS: SODIUM CHLORIDE 5% OPHT OINT 3.5 GM TUBE RIGHTEYE SCH ×6 (01:00→21:08)
[2019-08-03] MEDS: PANTOPRAZOLE ORAL SUSPENSION 40 MG SUSPDR.PKT GT SCH (05:56)
[2019-08-03] MEDS: LEVOTHYROXINE SODIUM 50 MCG TABLET GT SCH (05:56)
[2019-08-03] MEDS: BLOOD SUGAR DIAGNOSTIC 1 EACH STRIP VI SCH ×3 (05:57→21:08)
[2019-08-03] MEDS: INSULIN GLARGINE,HUM 300 UNITS/3 ML CARTRIDGE SQ SCH ×2 (05:57→17:17)
[2019-08-03] MEDS: INSULIN REGULAR, HUMAN 300 UNIT/3 ML VIAL SQ PRN ×3 (05:59→21:07)
[2019-08-03 07:36] VITALS: BP 116/72
[2019-08-03] MEDS: DOCUSATE SODIUM 100 MG/10 ML LIQUID UDC GT SCH ×2 (08:17→20:42)
[2019-08-03] MEDS: ACIDOPHILUS/BULGARICUS CHEW TAB GT SCH ×2 (08:17→20:42)
[2019-08-03] MEDS: COD LIVER OIL/ZINC OXIDE OINT 113 GM TUBE TOP SCH ×2 (08:17→20:42)
[2019-08-03] MEDS: POTASSIUM CHLORIDE 20 MEQ POWDER PACKET GT SCH (08:17)
[2019-08-03] MEDS: HYDROGEN PEROXIDE 3% 118 ML BOTTLE TP SCH ×2 (09:28→21:52)
[2019-08-03 20:20] VITALS: BP 116/68
[2019-08-03] MEDS: FERROUS SULFATE 330 MG/7.5 ML UDC- FOR SA ONLY GT SCH (20:42)
[2019-08-03] MEDS: ATORVASTATIN 10 MG TABLET GT SCH (20:42)
[2019-08-04] MEDS: SODIUM CHLORIDE 5% OPHT OINT 3.5 GM TUBE RIGHTEYE SCH ×6 (01:13→20:56)
[2019-08-04] MEDS: POLYVINYL ALCOHOL OPHT DROPS 15 ML BOTTLE EACHEYE SCH ×6 (04:00→23:10)
[2019-08-04] MEDS: LEVOTHYROXINE SODIUM 50 MCG TABLET GT SCH (05:36)
[2019-08-04] MEDS: PANTOPRAZOLE ORAL SUSPENSION 40 MG SUSPDR.PKT GT SCH (05:36)
[2019-08-04] MEDS: BLOOD SUGAR DIAGNOSTIC 1 EACH STRIP VI SCH ×3 (05:36→21:32)
[2019-08-04] MEDS: INSULIN GLARGINE,HUM 300 UNITS/3 ML CARTRIDGE SQ SCH ×2 (05:39→17:04)
[2019-08-04] MEDS: INSULIN REGULAR, HUMAN 300 UNIT/3 ML VIAL SQ PRN ×3 (05:40→21:33)
[2019-08-04] MEDS: ACIDOPHILUS/BULGARICUS CHEW TAB GT SCH ×2 (08:04→20:56)
[2019-08-04] MEDS: DOCUSATE SODIUM 100 MG/10 ML LIQUID UDC GT SCH ×2 (08:04→20:56)
[2019-08-04] MEDS: POTASSIUM CHLORIDE 20 MEQ POWDER PACKET GT SCH (08:08)
[2019-08-04] MEDS: BISACODYL 10 MG SUPP.RECT RC SCH (08:10)
[2019-08-04] MEDS: COD LIVER OIL/ZINC OXIDE OINT 113 GM TUBE TOP SCH ×2 (08:11→20:56)
[2019-08-04] MEDS: HYDROGEN PEROXIDE 3% 118 ML BOTTLE TP SCH ×2 (09:04→21:00)
[2019-08-04] MEDS: GLUCERNA 1.2 1000ML LIQUID GT PRN ×2 (09:47→22:46)
[2019-08-04 11:55] VITALS: BP 159/87
[2019-08-04 20:00] VITALS: BP 143/80
[2019-08-04] MEDS: ATORVASTATIN 10 MG TABLET GT SCH (20:56)
[2019-08-04] MEDS: FERROUS SULFATE 330 MG/7.5 ML UDC- FOR SA ONLY GT SCH (20:56)
[2019-08-05] MEDS: SODIUM CHLORIDE 5% OPHT OINT 3.5 GM TUBE RIGHTEYE SCH ×6 (01:08→20:49)
[2019-08-05] MEDS: POLYVINYL ALCOHOL OPHT DROPS 15 ML BOTTLE EACHEYE SCH ×6 (04:22→23:08)
[2019-08-05] MEDS: PANTOPRAZOLE ORAL SUSPENSION 40 MG SUSPDR.PKT GT SCH (05:49)
[2019-08-05] MEDS: LEVOTHYROXINE SODIUM 50 MCG TABLET GT SCH (05:49)
[2019-08-05] MEDS: BLOOD SUGAR DIAGNOSTIC 1 EACH STRIP VI SCH ×3 (05:49→21:21)
[2019-08-05] MEDS: INSULIN REGULAR, HUMAN 300 UNIT/3 ML VIAL SQ PRN ×3 (05:52→21:22)
[2019-08-05] MEDS: INSULIN GLARGINE,HUM 300 UNITS/3 ML CARTRIDGE SQ SCH ×2 (05:52→17:12)
[2019-08-05 08:30] VITALS: BP 141/79
[2019-08-05] MEDS: HYDROGEN PEROXIDE 3% 118 ML BOTTLE TP SCH ×2 (08:47→21:07)
[2019-08-05] MEDS: ACIDOPHILUS/BULGARICUS CHEW TAB GT SCH ×2 (08:52→20:49)
[2019-08-05] MEDS: POTASSIUM CHLORIDE 20 MEQ POWDER PACKET GT SCH (08:52)
[2019-08-05] MEDS: DOCUSATE SODIUM 100 MG/10 ML LIQUID UDC GT SCH ×2 (08:52→20:49)
[2019-08-05] MEDS: COD LIVER OIL/ZINC OXIDE OINT 113 GM TUBE TOP SCH ×2 (08:53→20:49)
[2019-08-05] MEDS: GLUCERNA 1.2 1000ML LIQUID GT PRN (19:46)
[2019-08-05 20:00] VITALS: BP 109/68
[2019-08-05] MEDS: FERROUS SULFATE 330 MG/7.5 ML UDC- FOR SA ONLY GT SCH (20:49)
[2019-08-05] MEDS: ATORVASTATIN 10 MG TABLET GT SCH (20:49)
[2019-08-06] MEDS: SODIUM CHLORIDE 5% OPHT OINT 3.5 GM TUBE RIGHTEYE SCH ×6 (00:23→21:01)
[2019-08-06] MEDS: POLYVINYL ALCOHOL OPHT DROPS 15 ML BOTTLE EACHEYE SCH ×6 (04:35→23:38)
[2019-08-06] MEDS: LEVOTHYROXINE SODIUM 50 MCG TABLET GT SCH (05:14)
[2019-08-06] MEDS: BLOOD SUGAR DIAGNOSTIC 1 EACH STRIP VI SCH ×3 (05:14→21:53)
[2019-08-06] MEDS: PANTOPRAZOLE ORAL SUSPENSION 40 MG SUSPDR.PKT GT SCH (05:14)
[2019-08-06] MEDS: INSULIN REGULAR, HUMAN 300 UNIT/3 ML VIAL SQ PRN ×3 (05:15→21:54)
[2019-08-06] MEDS: INSULIN GLARGINE,HUM 300 UNITS/3 ML CARTRIDGE SQ SCH ×2 (05:15→17:33)
[2019-08-06] MEDS: HYDROGEN PEROXIDE 3% 118 ML BOTTLE TP SCH ×2 (07:15→21:01)
[2019-08-06 08:30] VITALS: BP 121/73
[2019-08-06] MEDS: COD LIVER OIL/ZINC OXIDE OINT 113 GM TUBE TOP SCH ×2 (09:24→21:01)
[2019-08-06] MEDS: BISACODYL 10 MG SUPP.RECT RC SCH (09:24)
[2019-08-06] MEDS: ACIDOPHILUS/BULGARICUS CHEW TAB GT SCH ×2 (09:24→21:00)
[2019-08-06] MEDS: DOCUSATE SODIUM 100 MG/10 ML LIQUID UDC GT SCH ×2 (09:24→20:59)
[2019-08-06] MEDS: POTASSIUM CHLORIDE 20 MEQ POWDER PACKET GT SCH (09:24)
--- NOTE | 2019-08-06 13:12 | NUR ---
Seen by Maira CALVO and Harmeet Smith, no new orders given at this time.
[2019-08-06 20:12] VITALS: BP 96/64
[2019-08-06] MEDS: ATORVASTATIN 10 MG TABLET GT SCH (21:00)
[2019-08-06] MEDS: FERROUS SULFATE 330 MG/7.5 ML UDC- FOR SA ONLY GT SCH (21:00)
[2019-08-07] MEDS: SODIUM CHLORIDE 5% OPHT OINT 3.5 GM TUBE RIGHTEYE SCH ×6 (01:18→21:22)
[2019-08-07] MEDS: POLYVINYL ALCOHOL OPHT DROPS 15 ML BOTTLE EACHEYE SCH ×5 (04:12→20:00)
[2019-08-07] MEDS: LEVOTHYROXINE SODIUM 50 MCG TABLET GT SCH (05:13)
[2019-08-07] MEDS: PANTOPRAZOLE ORAL SUSPENSION 40 MG SUSPDR.PKT GT SCH (05:13)
[2019-08-07] MEDS: BLOOD SUGAR DIAGNOSTIC 1 EACH STRIP VI SCH ×3 (05:14→21:23)
[2019-08-07] MEDS: INSULIN GLARGINE,HUM 300 UNITS/3 ML CARTRIDGE SQ SCH ×2 (05:15→18:12)
[2019-08-07] MEDS: INSULIN REGULAR, HUMAN 300 UNIT/3 ML VIAL SQ PRN ×2 (05:21→14:19)
[2019-08-07 08:00] VITALS: BP 124/75
[2019-08-07] MEDS: COD LIVER OIL/ZINC OXIDE OINT 113 GM TUBE TOP SCH ×2 (08:07→21:22)
[2019-08-07] MEDS: DOCUSATE SODIUM 100 MG/10 ML LIQUID UDC GT SCH ×2 (08:07→21:19)
[2019-08-07] MEDS: POTASSIUM CHLORIDE 20 MEQ POWDER PACKET GT SCH (08:07)
[2019-08-07] MEDS: ACIDOPHILUS/BULGARICUS CHEW TAB GT SCH ×2 (08:07→21:21)
[2019-08-07] MEDS: HYDROGEN PEROXIDE 3% 118 ML BOTTLE TP SCH ×2 (09:49→21:37)
[2019-08-07 20:11] VITALS: BP 120/75
[2019-08-07] MEDS: FERROUS SULFATE 330 MG/7.5 ML UDC- FOR SA ONLY GT SCH (21:21)
[2019-08-07] MEDS: ATORVASTATIN 10 MG TABLET GT SCH (21:22)
[2019-08-08] MEDS: POLYVINYL ALCOHOL OPHT DROPS 15 ML BOTTLE EACHEYE SCH ×6 (00:18→20:00)
[2019-08-08] MEDS: SODIUM CHLORIDE 5% OPHT OINT 3.5 GM TUBE RIGHTEYE SCH ×6 (01:00→21:00)
[2019-08-08] MEDS: LEVOTHYROXINE SODIUM 50 MCG TABLET GT SCH (06:14)
[2019-08-08] MEDS: PANTOPRAZOLE ORAL SUSPENSION 40 MG SUSPDR.PKT GT SCH (06:14)
[2019-08-08] MEDS: INSULIN GLARGINE,HUM 300 UNITS/3 ML CARTRIDGE SQ SCH ×2 (06:16→17:38)
[2019-08-08] MEDS: BLOOD SUGAR DIAGNOSTIC 1 EACH STRIP VI SCH ×3 (06:16→22:06)
[2019-08-08] MEDS: INSULIN REGULAR, HUMAN 300 UNIT/3 ML VIAL SQ PRN ×3 (06:17→22:08)
[2019-08-08 08:04] VITALS: BP 136/80
[2019-08-08] MEDS: HYDROGEN PEROXIDE 3% 118 ML BOTTLE TP SCH ×2 (08:59→21:00)
[2019-08-08] MEDS: DOCUSATE SODIUM 100 MG/10 ML LIQUID UDC GT SCH ×2 (09:12→21:00)
[2019-08-08] MEDS: ACIDOPHILUS/BULGARICUS CHEW TAB GT SCH ×2 (09:12→21:00)
[2019-08-08] MEDS: POTASSIUM CHLORIDE 20 MEQ POWDER PACKET GT SCH (09:13)
[2019-08-08] MEDS: BISACODYL 10 MG SUPP.RECT RC SCH (09:13)
[2019-08-08] MEDS: COD LIVER OIL/ZINC OXIDE OINT 113 GM TUBE TOP SCH ×2 (09:13→21:00)
[2019-08-08] MEDS: GLUCERNA 1.2 1000ML LIQUID GT PRN (15:52)
[2019-08-08 19:47] VITALS: BP 132/77
[2019-08-08] MEDS: FERROUS SULFATE 330 MG/7.5 ML UDC- FOR SA ONLY GT SCH (21:00)
[2019-08-08] MEDS: ATORVASTATIN 10 MG TABLET GT SCH (21:00)
[2019-08-09] MEDS: SODIUM CHLORIDE 5% OPHT OINT 3.5 GM TUBE RIGHTEYE SCH ×6 (01:00→21:00)
[2019-08-09] MEDS: POLYVINYL ALCOHOL OPHT DROPS 15 ML BOTTLE EACHEYE SCH ×6 (04:00→20:00)
[2019-08-09] MEDS: LEVOTHYROXINE SODIUM 50 MCG TABLET GT SCH (06:19)
[2019-08-09] MEDS: PANTOPRAZOLE ORAL SUSPENSION 40 MG SUSPDR.PKT GT SCH (06:19)
[2019-08-09] MEDS: BLOOD SUGAR DIAGNOSTIC 1 EACH STRIP VI SCH ×3 (06:21→22:04)
[2019-08-09] MEDS: INSULIN GLARGINE,HUM 300 UNITS/3 ML CARTRIDGE SQ SCH ×2 (06:21→17:25)
[2019-08-09] MEDS: INSULIN REGULAR, HUMAN 300 UNIT/3 ML VIAL SQ PRN ×2 (06:22→22:05)
[2019-08-09 07:46] VITALS: BP 110/73
[2019-08-09] MEDS: DOCUSATE SODIUM 100 MG/10 ML LIQUID UDC GT SCH ×2 (08:04→21:00)
[2019-08-09] MEDS: ACIDOPHILUS/BULGARICUS CHEW TAB GT SCH ×2 (08:04→21:00)
[2019-08-09] MEDS: COD LIVER OIL/ZINC OXIDE OINT 113 GM TUBE TOP SCH ×2 (08:04→21:00)
[2019-08-09] MEDS: POTASSIUM CHLORIDE 20 MEQ POWDER PACKET GT SCH (08:04)
[2019-08-09] MEDS: HYDROGEN PEROXIDE 3% 118 ML BOTTLE TP SCH ×2 (09:44→21:23)
[2019-08-09] MEDS: GLUCERNA 1.2 1000ML LIQUID GT PRN (14:07)
--- NOTE | 2019-08-09 19:00 | NUR ---
SEEN BY TAZ Jackson.Ricci) AND WITH SARYO.
--- NOTE | 2019-08-09 19:04 | NUR ---
SEEN BY DR. CARVER AND WITH NEW ORDERS CARRIED OUT.
[2019-08-09 20:16] VITALS: BP 124/68
[2019-08-09] MEDS: ATORVASTATIN 10 MG TABLET GT SCH (21:00)
[2019-08-09] MEDS: FERROUS SULFATE 330 MG/7.5 ML UDC- FOR SA ONLY GT SCH (21:00)
[2019-08-10] MEDS: SODIUM CHLORIDE 5% OPHT OINT 3.5 GM TUBE RIGHTEYE SCH ×6 (01:00→20:55)
[2019-08-10] MEDS: POLYVINYL ALCOHOL OPHT DROPS 15 ML BOTTLE EACHEYE SCH ×6 (04:41→20:56)
[2019-08-10] MEDS: LEVOTHYROXINE SODIUM 50 MCG TABLET GT SCH (05:52)
[2019-08-10] MEDS: PANTOPRAZOLE ORAL SUSPENSION 40 MG SUSPDR.PKT GT SCH (05:52)
[2019-08-10] MEDS: BLOOD SUGAR DIAGNOSTIC 1 EACH STRIP VI SCH ×3 (05:53→21:39)
[2019-08-10] MEDS: INSULIN GLARGINE,HUM 300 UNITS/3 ML CARTRIDGE SQ SCH ×2 (05:53→17:23)
[2019-08-10] MEDS: INSULIN REGULAR, HUMAN 300 UNIT/3 ML VIAL SQ PRN ×3 (05:54→21:41)
[2019-08-10 08:38] LABS: BASOPHILS % (AUTO) 0.5 % (0.0-2.0); EOSINOPHILS # (AUTO) 0.2 K/uL (0.0-0.7); HEMATOCRIT 38.5 % (36.7-47.1); HEMOGLOBIN 12.3 g/dL (12.5-16.3); LYMPHOCYTES # (AUTO) 1.5 K/uL (20.0-40.0); LYMPHOCYTES % (AUTO) 25.3 % (20.5-51.5); MEAN CORPUSCULAR HEMOGLOBIN 27.6 uug (23.8-33.4); MEAN CORPUSCULAR HGB CONC 32 g/dL (32.5-36.3); MEAN CORPUSCULAR VOLUME 86.6 fL (73.0-96.2); MONOCYTES # (AUTO) 0.5 K/uL (2.0-10.0); MONOCYTES % (AUTO) 7.5 % (0.0-11.0); NEUTROPHILS # (AUTO) 3.8 K/uL (1.8-8.9); NEUTROPHILS % (AUTO) 62.7 % (38.5-71.5); PLATELET COUNT (AUTO) 207 K/uL (152-348); RED BLOOD CELL COUNT(AUTO) 4.44 MIL/uL (4.06-5.63); WHITE BLOOD COUNT (AUTO) 6.1 K/uL (3.6-10.2)
[2019-08-10] MEDS: DOCUSATE SODIUM 100 MG/10 ML LIQUID UDC GT SCH ×2 (08:45→20:52)
[2019-08-10] MEDS: ACIDOPHILUS/BULGARICUS CHEW TAB GT SCH ×2 (08:45→20:53)
[2019-08-10] MEDS: BISACODYL 10 MG SUPP.RECT RC SCH (08:46)
[2019-08-10] MEDS: POTASSIUM CHLORIDE 20 MEQ POWDER PACKET GT SCH (08:46)
[2019-08-10] MEDS: COD LIVER OIL/ZINC OXIDE OINT 113 GM TUBE TOP SCH ×2 (08:47→20:55)
[2019-08-10] MEDS: HYDROGEN PEROXIDE 3% 118 ML BOTTLE TP SCH ×2 (09:26→20:55)
[2019-08-10 09:54] LABS: CREATININE 0.7 mg/dL (0.6-1.3); MAGNESIUM 2.1 mg/dL (1.8-2.4); PHOSPHOROUS 4.2 mg/dL (2.5-4.9); POTASSIUM 3.8 mmol/L (3.5-5.1)
--- NOTE | 2019-08-10 18:00 | NUR ---
SEEN BY DR. FRANKIE MARTINEZ AND WITH NNO.
[2019-08-10 20:00] VITALS: BP 134/75
[2019-08-10] MEDS: FERROUS SULFATE 330 MG/7.5 ML UDC- FOR SA ONLY GT SCH (20:53)
[2019-08-10] MEDS: ATORVASTATIN 10 MG TABLET GT SCH (20:54)
[2019-08-11] MEDS: POLYVINYL ALCOHOL OPHT DROPS 15 ML BOTTLE EACHEYE SCH ×7 (00:42→23:43)
[2019-08-11] MEDS: SODIUM CHLORIDE 5% OPHT OINT 3.5 GM TUBE RIGHTEYE SCH ×6 (00:47→21:12)
[2019-08-11] MEDS: LEVOTHYROXINE SODIUM 50 MCG TABLET GT SCH (05:26)
[2019-08-11] MEDS: PANTOPRAZOLE ORAL SUSPENSION 40 MG SUSPDR.PKT GT SCH (05:26)
[2019-08-11] MEDS: BLOOD SUGAR DIAGNOSTIC 1 EACH STRIP VI SCH ×3 (05:29→21:44)
[2019-08-11] MEDS: INSULIN REGULAR, HUMAN 300 UNIT/3 ML VIAL SQ PRN ×3 (05:31→21:45)
[2019-08-11] MEDS: INSULIN GLARGINE,HUM 300 UNITS/3 ML CARTRIDGE SQ SCH ×2 (05:33→17:12)
[2019-08-11 07:45] VITALS: BP 120/62
[2019-08-11] MEDS: DOCUSATE SODIUM 100 MG/10 ML LIQUID UDC GT SCH ×2 (08:15→21:07)
[2019-08-11] MEDS: COD LIVER OIL/ZINC OXIDE OINT 113 GM TUBE TOP SCH ×2 (08:15→21:12)
[2019-08-11] MEDS: ACIDOPHILUS/BULGARICUS CHEW TAB GT SCH ×2 (08:15→21:07)
[2019-08-11] MEDS: POTASSIUM CHLORIDE 20 MEQ POWDER PACKET GT SCH (08:15)
[2019-08-11] MEDS: HYDROGEN PEROXIDE 3% 118 ML BOTTLE TP SCH ×2 (08:38→21:22)
[2019-08-11] MEDS: GLUCERNA 1.2 1000ML LIQUID GT PRN (12:51)
[2019-08-11 19:59] VITALS: BP 97/64
[2019-08-11] MEDS: FERROUS SULFATE 330 MG/7.5 ML UDC- FOR SA ONLY GT SCH (21:07)
[2019-08-11] MEDS: ATORVASTATIN 10 MG TABLET GT SCH (21:11)
[2019-08-12] MEDS: SODIUM CHLORIDE 5% OPHT OINT 3.5 GM TUBE RIGHTEYE SCH ×6 (01:07→20:55)
[2019-08-12] MEDS: POLYVINYL ALCOHOL OPHT DROPS 15 ML BOTTLE EACHEYE SCH ×5 (04:00→20:48)
[2019-08-12] MEDS: PANTOPRAZOLE ORAL SUSPENSION 40 MG SUSPDR.PKT GT SCH (05:12)
[2019-08-12] MEDS: LEVOTHYROXINE SODIUM 50 MCG TABLET GT SCH (05:12)
[2019-08-12] MEDS: BLOOD SUGAR DIAGNOSTIC 1 EACH STRIP VI SCH ×3 (05:12→21:23)
[2019-08-12] MEDS: INSULIN GLARGINE,HUM 300 UNITS/3 ML CARTRIDGE SQ SCH ×2 (05:13→17:07)
[2019-08-12] MEDS: INSULIN REGULAR, HUMAN 300 UNIT/3 ML VIAL SQ PRN ×3 (05:14→21:24)
[2019-08-12] MEDS: HYDROGEN PEROXIDE 3% 118 ML BOTTLE TP SCH ×2 (07:10→21:06)
[2019-08-12 08:00] VITALS: BP 102/68
[2019-08-12] MEDS: ACIDOPHILUS/BULGARICUS CHEW TAB GT SCH ×2 (09:27→20:54)
[2019-08-12] MEDS: DOCUSATE SODIUM 100 MG/10 ML LIQUID UDC GT SCH ×2 (09:27→20:48)
[2019-08-12] MEDS: BISACODYL 10 MG SUPP.RECT RC SCH (09:27)
[2019-08-12] MEDS: COD LIVER OIL/ZINC OXIDE OINT 113 GM TUBE TOP SCH ×2 (09:27→20:55)
[2019-08-12] MEDS: POTASSIUM CHLORIDE 20 MEQ POWDER PACKET GT SCH (09:27)
[2019-08-12] MEDS: GLUCERNA 1.2 1000ML LIQUID GT PRN (17:22)
[2019-08-12 20:24] VITALS: BP 98/69
[2019-08-12] MEDS: FERROUS SULFATE 330 MG/7.5 ML UDC- FOR SA ONLY GT SCH (20:54)
[2019-08-12] MEDS: ATORVASTATIN 10 MG TABLET GT SCH (20:55)
[2019-08-13] MEDS: POLYVINYL ALCOHOL OPHT DROPS 15 ML BOTTLE EACHEYE SCH ×6 (00:50→20:00)
[2019-08-13] MEDS: SODIUM CHLORIDE 5% OPHT OINT 3.5 GM TUBE RIGHTEYE SCH ×6 (01:00→21:25)
[2019-08-13] MEDS: LEVOTHYROXINE SODIUM 50 MCG TABLET GT SCH (05:20)
[2019-08-13] MEDS: PANTOPRAZOLE ORAL SUSPENSION 40 MG SUSPDR.PKT GT SCH (05:20)
[2019-08-13] MEDS: BLOOD SUGAR DIAGNOSTIC 1 EACH STRIP VI SCH ×3 (05:20→21:29)
[2019-08-13] MEDS: INSULIN GLARGINE,HUM 300 UNITS/3 ML CARTRIDGE SQ SCH ×2 (05:21→17:50)
[2019-08-13] MEDS: INSULIN REGULAR, HUMAN 300 UNIT/3 ML VIAL SQ PRN ×3 (05:23→21:31)
[2019-08-13 07:40] LABS: BASOPHILS % (AUTO) 0.3 % (0.0-2.0); EOSINOPHILS # (AUTO) 0.2 K/uL (0.0-0.7); EOSINOPHILS % (AUTO) 3.3 % (0.0-7.0); HEMATOCRIT 37.6 % (36.7-47.1); HEMOGLOBIN 12.1 g/dL (12.5-16.3); LYMPHOCYTES # (AUTO) 1.3 K/uL (20.0-40.0); LYMPHOCYTES % (AUTO) 17.5 % (20.5-51.5); MEAN CORPUSCULAR HEMOGLOBIN 27.8 uug (23.8-33.4); MEAN CORPUSCULAR HGB CONC 32 g/dL (32.5-36.3); MEAN CORPUSCULAR VOLUME 86.3 fL (73.0-96.2); MONOCYTES # (AUTO) 0.5 K/uL (2.0-10.0); MONOCYTES % (AUTO) 6.2 % (0.0-11.0); NEUTROPHILS # (AUTO) 5.4 K/uL (1.8-8.9); NEUTROPHILS % (AUTO) 72.7 % (38.5-71.5); PLATELET COUNT (AUTO) 214 K/uL (152-348); RED BLOOD CELL COUNT(AUTO) 4.36 MIL/uL (4.06-5.63); WHITE BLOOD COUNT (AUTO) 7.4 K/uL (3.6-10.2)
[2019-08-13 07:41] LABS: CREATININE 0.7 mg/dL (0.6-1.3); POTASSIUM 4.1 mmol/L (3.5-5.1)
[2019-08-13 08:04] VITALS: BP 97/61
[2019-08-13] MEDS: DOCUSATE SODIUM 100 MG/10 ML LIQUID UDC GT SCH ×2 (08:27→21:25)
[2019-08-13] MEDS: ACIDOPHILUS/BULGARICUS CHEW TAB GT SCH ×2 (08:27→21:25)
[2019-08-13] MEDS: POTASSIUM CHLORIDE 20 MEQ POWDER PACKET GT SCH (08:27)
[2019-08-13] MEDS: COD LIVER OIL/ZINC OXIDE OINT 113 GM TUBE TOP SCH ×2 (08:28→21:25)
[2019-08-13] MEDS: HYDROGEN PEROXIDE 3% 118 ML BOTTLE TP SCH ×2 (09:24→21:14)
[2019-08-13 20:11] VITALS: BP 129/75
[2019-08-13] MEDS: FERROUS SULFATE 330 MG/7.5 ML UDC- FOR SA ONLY GT SCH (21:25)
[2019-08-13] MEDS: ATORVASTATIN 10 MG TABLET GT SCH (21:25)
[2019-08-14] MEDS: POLYVINYL ALCOHOL OPHT DROPS 15 ML BOTTLE EACHEYE SCH ×7 (00:46→23:07)
[2019-08-14] MEDS: SODIUM CHLORIDE 5% OPHT OINT 3.5 GM TUBE RIGHTEYE SCH ×6 (00:47→20:40)
[2019-08-14] MEDS: PANTOPRAZOLE ORAL SUSPENSION 40 MG SUSPDR.PKT GT SCH (05:06)
[2019-08-14] MEDS: LEVOTHYROXINE SODIUM 50 MCG TABLET GT SCH (05:07)
[2019-08-14] MEDS: INSULIN GLARGINE,HUM 300 UNITS/3 ML CARTRIDGE SQ SCH ×2 (05:19→18:10)
[2019-08-14] MEDS: INSULIN REGULAR, HUMAN 300 UNIT/3 ML VIAL SQ PRN ×3 (05:20→22:07)
[2019-08-14] MEDS: BLOOD SUGAR DIAGNOSTIC 1 EACH STRIP VI SCH ×3 (05:23→22:05)
[2019-08-14 07:57] VITALS: BP 99/64
[2019-08-14] MEDS: BISACODYL 10 MG SUPP.RECT RC SCH (08:50)
[2019-08-14] MEDS: ACIDOPHILUS/BULGARICUS CHEW TAB GT SCH ×2 (08:50→20:40)
[2019-08-14] MEDS: DOCUSATE SODIUM 100 MG/10 ML LIQUID UDC GT SCH ×2 (08:50→20:40)
[2019-08-14] MEDS: POTASSIUM CHLORIDE 20 MEQ POWDER PACKET GT SCH (08:50)
[2019-08-14] MEDS: COD LIVER OIL/ZINC OXIDE OINT 113 GM TUBE TOP SCH ×2 (08:50→20:40)
[2019-08-14] MEDS: HYDROGEN PEROXIDE 3% 118 ML BOTTLE TP SCH ×2 (09:00→20:39)
[2019-08-14] MEDS: GLUCERNA 1.2 1000ML LIQUID GT PRN (12:59)
[2019-08-14 19:41] VITALS: BP 118/69
[2019-08-14] MEDS: ATORVASTATIN 10 MG TABLET GT SCH (20:40)
[2019-08-14] MEDS: FERROUS SULFATE 330 MG/7.5 ML UDC- FOR SA ONLY GT SCH (20:40)
[2019-08-15] MEDS: SODIUM CHLORIDE 5% OPHT OINT 3.5 GM TUBE RIGHTEYE SCH ×6 (01:00→20:38)
[2019-08-15] MEDS: POLYVINYL ALCOHOL OPHT DROPS 15 ML BOTTLE EACHEYE SCH ×5 (04:03→20:35)
[2019-08-15] MEDS: LEVOTHYROXINE SODIUM 50 MCG TABLET GT SCH (06:05)
[2019-08-15] MEDS: PANTOPRAZOLE ORAL SUSPENSION 40 MG SUSPDR.PKT GT SCH (06:05)
[2019-08-15] MEDS: INSULIN GLARGINE,HUM 300 UNITS/3 ML CARTRIDGE SQ SCH ×2 (06:06→17:39)
[2019-08-15] MEDS: BLOOD SUGAR DIAGNOSTIC 1 EACH STRIP VI SCH ×3 (06:06→22:05)
[2019-08-15] MEDS: INSULIN REGULAR, HUMAN 300 UNIT/3 ML VIAL SQ PRN ×3 (06:08→22:06)
[2019-08-15 07:59] VITALS: BP 123/73
[2019-08-15] MEDS: ACIDOPHILUS/BULGARICUS CHEW TAB GT SCH ×2 (08:41→20:36)
[2019-08-15] MEDS: DOCUSATE SODIUM 100 MG/10 ML LIQUID UDC GT SCH ×2 (08:41→20:35)
[2019-08-15] MEDS: COD LIVER OIL/ZINC OXIDE OINT 113 GM TUBE TOP SCH ×2 (08:43→20:38)
[2019-08-15] MEDS: POTASSIUM CHLORIDE 20 MEQ POWDER PACKET GT SCH (08:43)
[2019-08-15] MEDS: HYDROGEN PEROXIDE 3% 118 ML BOTTLE TP SCH ×2 (09:00→21:41)
--- NOTE | 2019-08-15 11:00 | NUR ---
Seen and examined by Dr Newman with no new orders noted.
[2019-08-15 19:57] VITALS: BP 114/66
[2019-08-15] MEDS: FERROUS SULFATE 330 MG/7.5 ML UDC- FOR SA ONLY GT SCH (20:35)
[2019-08-15] MEDS: ATORVASTATIN 10 MG TABLET GT SCH (20:36)
[2019-08-16] MEDS: POLYVINYL ALCOHOL OPHT DROPS 15 ML BOTTLE EACHEYE SCH ×6 (00:13→20:24)
[2019-08-16] MEDS: SODIUM CHLORIDE 5% OPHT OINT 3.5 GM TUBE RIGHTEYE SCH ×6 (01:00→20:27)
[2019-08-16] MEDS: LEVOTHYROXINE SODIUM 50 MCG TABLET GT SCH (05:32)
[2019-08-16] MEDS: PANTOPRAZOLE ORAL SUSPENSION 40 MG SUSPDR.PKT GT SCH (05:32)
[2019-08-16] MEDS: BLOOD SUGAR DIAGNOSTIC 1 EACH STRIP VI SCH ×3 (05:34→21:45)
[2019-08-16] MEDS: INSULIN GLARGINE,HUM 300 UNITS/3 ML CARTRIDGE SQ SCH ×2 (05:34→17:00)
[2019-08-16] MEDS: INSULIN REGULAR, HUMAN 300 UNIT/3 ML VIAL SQ PRN ×3 (05:36→21:47)
[2019-08-16 07:42] VITALS: BP 97/60
[2019-08-16] MEDS: DOCUSATE SODIUM 100 MG/10 ML LIQUID UDC GT SCH ×2 (08:07→20:25)
[2019-08-16] MEDS: POTASSIUM CHLORIDE 20 MEQ POWDER PACKET GT SCH (08:09)
[2019-08-16] MEDS: ACIDOPHILUS/BULGARICUS CHEW TAB GT SCH ×2 (08:09→20:26)
[2019-08-16] MEDS: BISACODYL 10 MG SUPP.RECT RC SCH (08:10)
[2019-08-16] MEDS: COD LIVER OIL/ZINC OXIDE OINT 113 GM TUBE TOP SCH ×2 (08:10→20:27)
[2019-08-16] MEDS: HYDROGEN PEROXIDE 3% 118 ML BOTTLE TP SCH ×2 (09:00→21:24)
[2019-08-16 20:00] VITALS: BP 103/60
[2019-08-16] MEDS: FERROUS SULFATE 330 MG/7.5 ML UDC- FOR SA ONLY GT SCH (20:25)
[2019-08-16] MEDS: ATORVASTATIN 10 MG TABLET GT SCH (20:26)
[2019-08-17] MEDS: SODIUM CHLORIDE 5% OPHT OINT 3.5 GM TUBE RIGHTEYE SCH ×6 (01:04→21:06)
[2019-08-17] MEDS: POLYVINYL ALCOHOL OPHT DROPS 15 ML BOTTLE EACHEYE SCH ×6 (04:00→20:55)
[2019-08-17] MEDS: PANTOPRAZOLE ORAL SUSPENSION 40 MG SUSPDR.PKT GT SCH (05:50)
[2019-08-17] MEDS: LEVOTHYROXINE SODIUM 50 MCG TABLET GT SCH (05:51)
[2019-08-17] MEDS: INSULIN GLARGINE,HUM 300 UNITS/3 ML CARTRIDGE SQ SCH ×2 (05:52→17:10)
[2019-08-17] MEDS: BLOOD SUGAR DIAGNOSTIC 1 EACH STRIP VI SCH ×3 (05:54→21:06)
[2019-08-17] MEDS: INSULIN REGULAR, HUMAN 300 UNIT/3 ML VIAL SQ PRN ×3 (05:57→21:08)
[2019-08-17 07:36] VITALS: BP 97/67
[2019-08-17] MEDS: HYDROGEN PEROXIDE 3% 118 ML BOTTLE TP SCH ×2 (08:14→21:00)
[2019-08-17] MEDS: POTASSIUM CHLORIDE 20 MEQ POWDER PACKET GT SCH (08:43)
[2019-08-17] MEDS: DOCUSATE SODIUM 100 MG/10 ML LIQUID UDC GT SCH ×2 (08:43→20:55)
[2019-08-17] MEDS: COD LIVER OIL/ZINC OXIDE OINT 113 GM TUBE TOP SCH ×2 (08:43→20:55)
[2019-08-17] MEDS: ACIDOPHILUS/BULGARICUS CHEW TAB GT SCH ×2 (08:43→20:55)
[2019-08-17] MEDS: GLUCERNA 1.2 1000ML LIQUID GT PRN (13:12)
[2019-08-17 20:00] VITALS: BP 115/67
[2019-08-17] MEDS: FERROUS SULFATE 330 MG/7.5 ML UDC- FOR SA ONLY GT SCH (20:55)
[2019-08-17] MEDS: ATORVASTATIN 10 MG TABLET GT SCH (20:55)
[2019-08-18] MEDS: POLYVINYL ALCOHOL OPHT DROPS 15 ML BOTTLE EACHEYE SCH ×6 (00:40→20:29)
[2019-08-18] MEDS: SODIUM CHLORIDE 5% OPHT OINT 3.5 GM TUBE RIGHTEYE SCH ×6 (01:11→21:10)
[2019-08-18] MEDS: PANTOPRAZOLE ORAL SUSPENSION 40 MG SUSPDR.PKT GT SCH (05:50)
[2019-08-18] MEDS: LEVOTHYROXINE SODIUM 50 MCG TABLET GT SCH (05:50)
[2019-08-18] MEDS: BLOOD SUGAR DIAGNOSTIC 1 EACH STRIP VI SCH ×3 (05:50→21:11)
[2019-08-18] MEDS: INSULIN GLARGINE,HUM 300 UNITS/3 ML CARTRIDGE SQ SCH ×2 (05:51→17:28)
[2019-08-18] MEDS: INSULIN REGULAR, HUMAN 300 UNIT/3 ML VIAL SQ PRN ×3 (05:53→21:12)
[2019-08-18 07:43] VITALS: BP 115/67
[2019-08-18] MEDS: DOCUSATE SODIUM 100 MG/10 ML LIQUID UDC GT SCH ×2 (08:06→20:29)
[2019-08-18] MEDS: ACIDOPHILUS/BULGARICUS CHEW TAB GT SCH ×2 (08:08→20:29)
[2019-08-18] MEDS: POTASSIUM CHLORIDE 20 MEQ POWDER PACKET GT SCH (08:08)
[2019-08-18] MEDS: COD LIVER OIL/ZINC OXIDE OINT 113 GM TUBE TOP SCH ×2 (08:13→20:29)
[2019-08-18] MEDS: BISACODYL 10 MG SUPP.RECT RC SCH (08:13)
[2019-08-18] MEDS: HYDROGEN PEROXIDE 3% 118 ML BOTTLE TP SCH ×2 (09:00→19:19)
[2019-08-18] MEDS: GLUCERNA 1.2 1000ML LIQUID GT PRN (15:50)
[2019-08-18 20:01] VITALS: BP 130/79
[2019-08-18] MEDS: ATORVASTATIN 10 MG TABLET GT SCH (20:29)
[2019-08-18] MEDS: FERROUS SULFATE 330 MG/7.5 ML UDC- FOR SA ONLY GT SCH (20:29)
[2019-08-19] MEDS: POLYVINYL ALCOHOL OPHT DROPS 15 ML BOTTLE EACHEYE SCH ×7 (00:01→23:09)
[2019-08-19] MEDS: SODIUM CHLORIDE 5% OPHT OINT 3.5 GM TUBE RIGHTEYE SCH ×6 (00:13→20:49)
[2019-08-19] MEDS: PANTOPRAZOLE ORAL SUSPENSION 40 MG SUSPDR.PKT GT SCH (05:36)
[2019-08-19] MEDS: LEVOTHYROXINE SODIUM 50 MCG TABLET GT SCH (05:36)
[2019-08-19] MEDS: INSULIN GLARGINE,HUM 300 UNITS/3 ML CARTRIDGE SQ SCH ×2 (05:38→17:14)
[2019-08-19] MEDS: BLOOD SUGAR DIAGNOSTIC 1 EACH STRIP VI SCH ×3 (05:38→21:23)
[2019-08-19] MEDS: INSULIN REGULAR, HUMAN 300 UNIT/3 ML VIAL SQ PRN ×3 (05:39→21:25)
[2019-08-19 07:50] VITALS: BP 122/74
[2019-08-19] MEDS: DOCUSATE SODIUM 100 MG/10 ML LIQUID UDC GT SCH ×2 (08:21→20:48)
[2019-08-19] MEDS: POTASSIUM CHLORIDE 20 MEQ POWDER PACKET GT SCH (08:21)
[2019-08-19] MEDS: ACIDOPHILUS/BULGARICUS CHEW TAB GT SCH ×2 (08:21→20:48)
[2019-08-19] MEDS: COD LIVER OIL/ZINC OXIDE OINT 113 GM TUBE TOP SCH ×2 (08:21→20:49)
[2019-08-19] MEDS: HYDROGEN PEROXIDE 3% 118 ML BOTTLE TP SCH ×2 (09:18→21:03)
[2019-08-19] MEDS: GLUCERNA 1.2 1000ML LIQUID GT PRN (12:15)
[2019-08-19 20:12] VITALS: BP 124/70
[2019-08-19] MEDS: ATORVASTATIN 10 MG TABLET GT SCH (20:48)
[2019-08-19] MEDS: FERROUS SULFATE 330 MG/7.5 ML UDC- FOR SA ONLY GT SCH (20:48)
[2019-08-20] MEDS: SODIUM CHLORIDE 5% OPHT OINT 3.5 GM TUBE RIGHTEYE SCH ×6 (01:34→21:20)
[2019-08-20] MEDS: POLYVINYL ALCOHOL OPHT DROPS 15 ML BOTTLE EACHEYE SCH ×5 (04:22→20:00)
[2019-08-20] MEDS: PANTOPRAZOLE ORAL SUSPENSION 40 MG SUSPDR.PKT GT SCH (05:23)
[2019-08-20] MEDS: LEVOTHYROXINE SODIUM 50 MCG TABLET GT SCH (05:23)
[2019-08-20] MEDS: BLOOD SUGAR DIAGNOSTIC 1 EACH STRIP VI SCH ×3 (05:23→21:35)
[2019-08-20] MEDS: INSULIN REGULAR, HUMAN 300 UNIT/3 ML VIAL SQ PRN ×3 (05:24→21:38)
[2019-08-20] MEDS: INSULIN GLARGINE,HUM 300 UNITS/3 ML CARTRIDGE SQ SCH ×2 (05:24→18:29)
[2019-08-20 08:02] VITALS: BP 108/66
[2019-08-20] MEDS: POTASSIUM CHLORIDE 20 MEQ POWDER PACKET GT SCH (08:18)
[2019-08-20] MEDS: COD LIVER OIL/ZINC OXIDE OINT 113 GM TUBE TOP SCH ×2 (08:18→21:21)
[2019-08-20] MEDS: DOCUSATE SODIUM 100 MG/10 ML LIQUID UDC GT SCH ×2 (08:18→21:19)
[2019-08-20] MEDS: BISACODYL 10 MG SUPP.RECT RC SCH (08:18)
[2019-08-20] MEDS: ACIDOPHILUS/BULGARICUS CHEW TAB GT SCH ×2 (08:18→21:19)
[2019-08-20] MEDS: HYDROGEN PEROXIDE 3% 118 ML BOTTLE TP SCH ×2 (08:55→21:34)
--- NOTE | 2019-08-20 11:33 | NUR ---
Seen by Maira DE JESUS with no new order.
[2019-08-20] MEDS: GLUCERNA 1.2 1000ML LIQUID GT PRN (11:47)
--- NOTE | 2019-08-20 12:00 | NUR ---
Seen by Harmeet Smith with no new order.
[2019-08-20 19:42] VITALS: BP 108/66
[2019-08-20] MEDS: FERROUS SULFATE 330 MG/7.5 ML UDC- FOR SA ONLY GT SCH (21:19)
[2019-08-20] MEDS: ATORVASTATIN 10 MG TABLET GT SCH (21:20)
[2019-08-21] MEDS: SODIUM CHLORIDE 5% OPHT OINT 3.5 GM TUBE RIGHTEYE SCH ×6 (01:00→21:24)
[2019-08-21] MEDS: POLYVINYL ALCOHOL OPHT DROPS 15 ML BOTTLE EACHEYE SCH ×6 (04:00→20:00)
[2019-08-21] MEDS: PANTOPRAZOLE ORAL SUSPENSION 40 MG SUSPDR.PKT GT SCH (05:36)
[2019-08-21] MEDS: BLOOD SUGAR DIAGNOSTIC 1 EACH STRIP VI SCH ×3 (05:36→21:24)
[2019-08-21] MEDS: LEVOTHYROXINE SODIUM 50 MCG TABLET GT SCH (05:36)
[2019-08-21] MEDS: INSULIN GLARGINE,HUM 300 UNITS/3 ML CARTRIDGE SQ SCH ×2 (05:37→18:57)
[2019-08-21] MEDS: INSULIN REGULAR, HUMAN 300 UNIT/3 ML VIAL SQ PRN ×3 (05:38→21:26)
[2019-08-21 07:50] VITALS: BP 99/61
[2019-08-21] MEDS: HYDROGEN PEROXIDE 3% 118 ML BOTTLE TP SCH ×2 (08:27→21:09)
[2019-08-21] MEDS: POTASSIUM CHLORIDE 20 MEQ POWDER PACKET GT SCH (09:10)
[2019-08-21] MEDS: COD LIVER OIL/ZINC OXIDE OINT 113 GM TUBE TOP SCH ×2 (09:10→21:24)
[2019-08-21] MEDS: DOCUSATE SODIUM 100 MG/10 ML LIQUID UDC GT SCH ×2 (09:10→21:21)
[2019-08-21] MEDS: ACIDOPHILUS/BULGARICUS CHEW TAB GT SCH ×2 (09:10→21:22)
[2019-08-21 20:00] VITALS: BP 110/72
[2019-08-21] MEDS: FERROUS SULFATE 330 MG/7.5 ML UDC- FOR SA ONLY GT SCH (21:21)
[2019-08-21] MEDS: ATORVASTATIN 10 MG TABLET GT SCH (21:22)
[2019-08-22] MEDS: SODIUM CHLORIDE 5% OPHT OINT 3.5 GM TUBE RIGHTEYE SCH ×6 (01:00→21:53)
[2019-08-22] MEDS: POLYVINYL ALCOHOL OPHT DROPS 15 ML BOTTLE EACHEYE SCH ×6 (04:00→20:00)
[2019-08-22] MEDS: PANTOPRAZOLE ORAL SUSPENSION 40 MG SUSPDR.PKT GT SCH (05:18)
[2019-08-22] MEDS: LEVOTHYROXINE SODIUM 50 MCG TABLET GT SCH (05:18)
[2019-08-22] MEDS: INSULIN GLARGINE,HUM 300 UNITS/3 ML CARTRIDGE SQ SCH ×2 (05:19→17:11)
[2019-08-22] MEDS: BLOOD SUGAR DIAGNOSTIC 1 EACH STRIP VI SCH ×3 (05:19→21:53)
[2019-08-22] MEDS: INSULIN REGULAR, HUMAN 300 UNIT/3 ML VIAL SQ PRN ×3 (05:20→21:54)
[2019-08-22 08:02] VITALS: BP 105/71
[2019-08-22] MEDS: BISACODYL 10 MG SUPP.RECT RC SCH (08:44)
[2019-08-22] MEDS: POTASSIUM CHLORIDE 20 MEQ POWDER PACKET GT SCH (08:44)
[2019-08-22] MEDS: COD LIVER OIL/ZINC OXIDE OINT 113 GM TUBE TOP SCH ×2 (08:44→21:53)
[2019-08-22] MEDS: DOCUSATE SODIUM 100 MG/10 ML LIQUID UDC GT SCH ×2 (08:44→21:48)
[2019-08-22] MEDS: ACIDOPHILUS/BULGARICUS CHEW TAB GT SCH ×2 (08:44→21:49)
[2019-08-22] MEDS: HYDROGEN PEROXIDE 3% 118 ML BOTTLE TP SCH ×2 (09:00→18:55)
--- NOTE | 2019-08-22 10:00 | NUR ---
Seen and examined by Dr Marie,no new orders.
[2019-08-22 19:56] VITALS: BP 106/66
[2019-08-22] MEDS: ATORVASTATIN 10 MG TABLET GT SCH (21:49)
[2019-08-22] MEDS: FERROUS SULFATE 330 MG/7.5 ML UDC- FOR SA ONLY GT SCH (21:49)
[2019-08-23] MEDS: POLYVINYL ALCOHOL OPHT DROPS 15 ML BOTTLE EACHEYE SCH ×6 (00:22→20:00)
[2019-08-23] MEDS: SODIUM CHLORIDE 5% OPHT OINT 3.5 GM TUBE RIGHTEYE SCH ×6 (00:22→21:37)
[2019-08-23] MEDS: GLUCERNA 1.2 1000ML LIQUID GT PRN (00:22)
[2019-08-23] MEDS: PANTOPRAZOLE ORAL SUSPENSION 40 MG SUSPDR.PKT GT SCH (05:46)
[2019-08-23] MEDS: LEVOTHYROXINE SODIUM 50 MCG TABLET GT SCH (05:46)
[2019-08-23] MEDS: BLOOD SUGAR DIAGNOSTIC 1 EACH STRIP VI SCH ×3 (05:47→21:38)
[2019-08-23] MEDS: INSULIN GLARGINE,HUM 300 UNITS/3 ML CARTRIDGE SQ SCH ×2 (05:47→18:04)
[2019-08-23] MEDS: INSULIN REGULAR, HUMAN 300 UNIT/3 ML VIAL SQ PRN ×3 (05:48→21:38)
[2019-08-23 07:58] VITALS: BP 102/63
[2019-08-23] MEDS: DOCUSATE SODIUM 100 MG/10 ML LIQUID UDC GT SCH ×2 (08:25→21:35)
[2019-08-23] MEDS: ACIDOPHILUS/BULGARICUS CHEW TAB GT SCH ×2 (08:25→21:36)
[2019-08-23] MEDS: POTASSIUM CHLORIDE 20 MEQ POWDER PACKET GT SCH (08:25)
[2019-08-23] MEDS: COD LIVER OIL/ZINC OXIDE OINT 113 GM TUBE TOP SCH ×2 (08:26→21:37)
[2019-08-23] MEDS: HYDROGEN PEROXIDE 3% 118 ML BOTTLE TP SCH ×2 (09:00→18:47)
[2019-08-23 20:07] VITALS: BP 112/68
[2019-08-23] MEDS: FERROUS SULFATE 330 MG/7.5 ML UDC- FOR SA ONLY GT SCH (21:36)
[2019-08-23] MEDS: ATORVASTATIN 10 MG TABLET GT SCH (21:37)
[2019-08-24] MEDS: SODIUM CHLORIDE 5% OPHT OINT 3.5 GM TUBE RIGHTEYE SCH ×6 (01:00→21:39)
[2019-08-24] MEDS: GLUCERNA 1.2 1000ML LIQUID GT PRN (01:20)
[2019-08-24] MEDS: POLYVINYL ALCOHOL OPHT DROPS 15 ML BOTTLE EACHEYE SCH ×6 (04:00→20:49)
[2019-08-24] MEDS: LEVOTHYROXINE SODIUM 50 MCG TABLET GT SCH (05:23)
[2019-08-24] MEDS: PANTOPRAZOLE ORAL SUSPENSION 40 MG SUSPDR.PKT GT SCH (05:23)
[2019-08-24] MEDS: INSULIN GLARGINE,HUM 300 UNITS/3 ML CARTRIDGE SQ SCH ×2 (05:24→17:15)
[2019-08-24] MEDS: INSULIN REGULAR, HUMAN 300 UNIT/3 ML VIAL SQ PRN ×2 (05:25→13:09)
[2019-08-24] MEDS: BLOOD SUGAR DIAGNOSTIC 1 EACH STRIP VI SCH ×3 (05:26→22:17)
[2019-08-24 07:35] VITALS: BP 123/76
[2019-08-24] MEDS: HYDROGEN PEROXIDE 3% 118 ML BOTTLE TP SCH ×2 (08:04→18:40)
[2019-08-24] MEDS: DOCUSATE SODIUM 100 MG/10 ML LIQUID UDC GT SCH ×2 (08:54→21:39)
[2019-08-24] MEDS: ACIDOPHILUS/BULGARICUS CHEW TAB GT SCH ×2 (08:55→21:39)
[2019-08-24] MEDS: POTASSIUM CHLORIDE 20 MEQ POWDER PACKET GT SCH (08:57)
[2019-08-24] MEDS: BISACODYL 10 MG SUPP.RECT RC SCH (08:57)
[2019-08-24] MEDS: COD LIVER OIL/ZINC OXIDE OINT 113 GM TUBE TOP SCH ×2 (08:57→21:40)
[2019-08-24] MEDS: FERROUS SULFATE 330 MG/7.5 ML UDC- FOR SA ONLY GT SCH (21:39)
[2019-08-24] MEDS: ATORVASTATIN 10 MG TABLET GT SCH (21:39)
[2019-08-24 22:38] VITALS: BP 110/62
[2019-08-25] MEDS: POLYVINYL ALCOHOL OPHT DROPS 15 ML BOTTLE EACHEYE SCH ×6 (00:07→20:19)
[2019-08-25] MEDS: SODIUM CHLORIDE 5% OPHT OINT 3.5 GM TUBE RIGHTEYE SCH ×6 (01:44→20:21)
[2019-08-25] MEDS: LEVOTHYROXINE SODIUM 50 MCG TABLET GT SCH (05:36)
[2019-08-25] MEDS: PANTOPRAZOLE ORAL SUSPENSION 40 MG SUSPDR.PKT GT SCH (05:36)
[2019-08-25] MEDS: INSULIN GLARGINE,HUM 300 UNITS/3 ML CARTRIDGE SQ SCH ×2 (05:37→18:19)
[2019-08-25] MEDS: BLOOD SUGAR DIAGNOSTIC 1 EACH STRIP VI SCH ×3 (05:37→22:04)
[2019-08-25] MEDS: INSULIN REGULAR, HUMAN 300 UNIT/3 ML VIAL SQ PRN ×3 (05:40→22:06)
[2019-08-25] MEDS: GLUCERNA 1.2 1000ML LIQUID GT PRN ×2 (06:02→23:48)
[2019-08-25 07:44] VITALS: BP 125/80
[2019-08-25] MEDS: DOCUSATE SODIUM 100 MG/10 ML LIQUID UDC GT SCH ×2 (08:40→20:20)
[2019-08-25] MEDS: POTASSIUM CHLORIDE 20 MEQ POWDER PACKET GT SCH (08:40)
[2019-08-25] MEDS: ACIDOPHILUS/BULGARICUS CHEW TAB GT SCH ×2 (08:40→20:20)
[2019-08-25] MEDS: COD LIVER OIL/ZINC OXIDE OINT 113 GM TUBE TOP SCH ×2 (08:40→20:21)
[2019-08-25] MEDS: HYDROGEN PEROXIDE 3% 118 ML BOTTLE TP SCH ×2 (09:45→21:22)
[2019-08-25] MEDS: FERROUS SULFATE 330 MG/7.5 ML UDC- FOR SA ONLY GT SCH (20:20)
[2019-08-25] MEDS: ATORVASTATIN 10 MG TABLET GT SCH (20:21)
[2019-08-25 22:03] VITALS: BP 111/75
[2019-08-26] MEDS: POLYVINYL ALCOHOL OPHT DROPS 15 ML BOTTLE EACHEYE SCH ×6 (00:39→20:00)
[2019-08-26] MEDS: SODIUM CHLORIDE 5% OPHT OINT 3.5 GM TUBE RIGHTEYE SCH ×6 (00:40→21:46)
[2019-08-26] MEDS: LEVOTHYROXINE SODIUM 50 MCG TABLET GT SCH (05:07)
[2019-08-26] MEDS: PANTOPRAZOLE ORAL SUSPENSION 40 MG SUSPDR.PKT GT SCH (05:07)
[2019-08-26] MEDS: BLOOD SUGAR DIAGNOSTIC 1 EACH STRIP VI SCH ×3 (05:08→22:29)
[2019-08-26] MEDS: INSULIN REGULAR, HUMAN 300 UNIT/3 ML VIAL SQ PRN ×3 (05:23→22:30)
[2019-08-26] MEDS: INSULIN GLARGINE,HUM 300 UNITS/3 ML CARTRIDGE SQ SCH ×2 (05:24→17:54)
[2019-08-26 07:43] VITALS: BP 122/67
[2019-08-26] MEDS: DOCUSATE SODIUM 100 MG/10 ML LIQUID UDC GT SCH ×2 (08:27→21:46)
[2019-08-26] MEDS: ACIDOPHILUS/BULGARICUS CHEW TAB GT SCH ×2 (08:28→21:46)
[2019-08-26] MEDS: POTASSIUM CHLORIDE 20 MEQ POWDER PACKET GT SCH (08:28)
[2019-08-26] MEDS: COD LIVER OIL/ZINC OXIDE OINT 113 GM TUBE TOP SCH ×2 (08:29→21:46)
[2019-08-26] MEDS: BISACODYL 10 MG SUPP.RECT RC SCH (08:29)
[2019-08-26] MEDS: HYDROGEN PEROXIDE 3% 118 ML BOTTLE TP SCH ×2 (09:49→21:35)
[2019-08-26] MEDS: FERROUS SULFATE 330 MG/7.5 ML UDC- FOR SA ONLY GT SCH (21:46)
[2019-08-26] MEDS: ATORVASTATIN 10 MG TABLET GT SCH (21:46)
[2019-08-26 22:37] VITALS: BP 118/64
[2019-08-26] MEDS: GLUCERNA 1.2 1000ML LIQUID GT PRN (22:54)
[2019-08-27] MEDS: POLYVINYL ALCOHOL OPHT DROPS 15 ML BOTTLE EACHEYE SCH ×6 (00:08→20:00)
[2019-08-27] MEDS: SODIUM CHLORIDE 5% OPHT OINT 3.5 GM TUBE RIGHTEYE SCH ×6 (01:27→21:24)
[2019-08-27] MEDS: LEVOTHYROXINE SODIUM 50 MCG TABLET GT SCH (05:02)
[2019-08-27] MEDS: PANTOPRAZOLE ORAL SUSPENSION 40 MG SUSPDR.PKT GT SCH (05:02)
[2019-08-27] MEDS: BLOOD SUGAR DIAGNOSTIC 1 EACH STRIP VI SCH ×3 (05:02→22:00)
[2019-08-27] MEDS: INSULIN GLARGINE,HUM 300 UNITS/3 ML CARTRIDGE SQ SCH ×2 (05:09→18:09)
[2019-08-27] MEDS: INSULIN REGULAR, HUMAN 300 UNIT/3 ML VIAL SQ PRN ×3 (05:10→22:02)
[2019-08-27 07:53] VITALS: BP 96/56
[2019-08-27] MEDS: ACIDOPHILUS/BULGARICUS CHEW TAB GT SCH ×2 (08:54→21:24)
[2019-08-27] MEDS: COD LIVER OIL/ZINC OXIDE OINT 113 GM TUBE TOP SCH ×2 (08:54→21:24)
[2019-08-27] MEDS: POTASSIUM CHLORIDE 20 MEQ POWDER PACKET GT SCH (08:56)
[2019-08-27] MEDS: DOCUSATE SODIUM 100 MG/10 ML LIQUID UDC GT SCH ×2 (08:59→21:22)
[2019-08-27] MEDS: HYDROGEN PEROXIDE 3% 118 ML BOTTLE TP SCH ×2 (09:00→20:53)
--- NOTE | 2019-08-27 13:20 | NUR ---
SEEN BY ANAID Maguire AND WITH NNO.
[2019-08-27] MEDS: GLUCERNA 1.2 1000ML LIQUID GT PRN (18:20)
[2019-08-27 20:00] VITALS: BP 114/65
[2019-08-27] MEDS: FERROUS SULFATE 330 MG/7.5 ML UDC- FOR SA ONLY GT SCH (21:22)
[2019-08-27] MEDS: ATORVASTATIN 10 MG TABLET GT SCH (21:24)
[2019-08-28] MEDS: SODIUM CHLORIDE 5% OPHT OINT 3.5 GM TUBE RIGHTEYE SCH ×6 (00:56→20:17)
[2019-08-28] MEDS: POLYVINYL ALCOHOL OPHT DROPS 15 ML BOTTLE EACHEYE SCH ×6 (00:56→20:16)
[2019-08-28] MEDS: BLOOD SUGAR DIAGNOSTIC 1 EACH STRIP VI SCH ×4 (05:16→22:02)
[2019-08-28] MEDS: PANTOPRAZOLE ORAL SUSPENSION 40 MG SUSPDR.PKT GT SCH (05:16)
[2019-08-28] MEDS: LEVOTHYROXINE SODIUM 50 MCG TABLET GT SCH (05:16)
[2019-08-28] MEDS: INSULIN REGULAR, HUMAN 300 UNIT/3 ML VIAL SQ PRN ×4 (06:09→22:03)
[2019-08-28] MEDS: INSULIN GLARGINE,HUM 300 UNITS/3 ML CARTRIDGE SQ SCH ×2 (06:13→18:49)
[2019-08-28 07:33] VITALS: BP 110/68
[2019-08-28] MEDS: DOCUSATE SODIUM 100 MG/10 ML LIQUID UDC GT SCH ×2 (08:32→20:16)
[2019-08-28] MEDS: ACIDOPHILUS/BULGARICUS CHEW TAB GT SCH ×2 (08:34→20:17)
[2019-08-28] MEDS: COD LIVER OIL/ZINC OXIDE OINT 113 GM TUBE TOP SCH ×2 (08:39→20:17)
[2019-08-28] MEDS: BISACODYL 10 MG SUPP.RECT RC SCH (08:39)
[2019-08-28] MEDS: POTASSIUM CHLORIDE 20 MEQ POWDER PACKET GT SCH (08:39)
[2019-08-28] MEDS: HYDROGEN PEROXIDE 3% 118 ML BOTTLE TP SCH ×2 (09:02→20:49)
--- NOTE | 2019-08-28 12:50 | NUR ---
INTERDISCIPLINARY PLAN OF CARE CONFERENCE was held today. Patient's daughter was not available to participate in the meeting. Dr. Nolan and the Interdisciplinary Team reviewed the current plan of care in detail. RN reported on patient's current medical condition and findings of recent labs. No major changes in condition were reported. See RN IDT conference notes. See all also other disciplines IDT notes and physician's progress notes for additional details.
--- NOTE | 2019-08-28 13:00 | NUR ---
Pharmacy Update for Today's 08/28/19 IDT meeting VS: Temp 98.1 BP 110/68 HR 54 LABS: (from 08/13/19) Wbc 7.4 H/H 12.1/37.6 Plt 214 Na 136 K 4.1 Cl 101 CO2 26 BUN/SCr 26/0.7 BS 181 Ca 9.7 MEDICATION USE REVIEWED: > Pt not on any anti-psych or anti-seizure medications > Previously on phenytoin, neurology d/c'd on 04/30/19 after prolonged course of tapering. No seizures noted since d/c or during taper. Remains stable at this time > On moderate sliding scale insulin + 22 units Lantus AMHS since 07/30, BS ranges 109-219 since last dose change > On KCl 40meq daily since 05/31/19; last K 4.1 > Pt on Synthroid 50mcg daily. TSH on 07/04/19 was 2.128 (0.358-3.740), within therapeutic range. > PRN MED USAGE: (July) Tylenol for pain used x 0 Tylenol for temp used x 0 MOM for constipation used x 0 NEW ORDERS NOTED: > Per Rx rec, Lantus 20units increased to 22units AMHS 07/30 Patient reviewed and discussed in detail at today's IDT and again recommended for further MD adjustment of Lantus per TDD SSI of at least 2units AMHS for more for about ~50% TDD SSI. MD agreed and will take a look himself to consider adjustment recommended before making change. No further recs otherwise, will continue to follow.
[2019-08-28] MEDS: GLUCERNA 1.2 1000ML LIQUID GT PRN (17:51)
[2019-08-28 20:00] VITALS: BP 118/73
[2019-08-28] MEDS: ATORVASTATIN 10 MG TABLET GT SCH (20:17)
[2019-08-28] MEDS: FERROUS SULFATE 330 MG/7.5 ML UDC- FOR SA ONLY GT SCH (20:17)
[2019-08-29] MEDS: SODIUM CHLORIDE 5% OPHT OINT 3.5 GM TUBE RIGHTEYE SCH ×6 (01:05→20:15)
[2019-08-29] MEDS: POLYVINYL ALCOHOL OPHT DROPS 15 ML BOTTLE EACHEYE SCH ×7 (04:00→23:49)
[2019-08-29] MEDS: BLOOD SUGAR DIAGNOSTIC 1 EACH STRIP VI SCH ×3 (05:02→22:47)
[2019-08-29] MEDS: PANTOPRAZOLE ORAL SUSPENSION 40 MG SUSPDR.PKT GT SCH (05:02)
[2019-08-29] MEDS: LEVOTHYROXINE SODIUM 50 MCG TABLET GT SCH (05:02)
[2019-08-29] MEDS: INSULIN GLARGINE,HUM 300 UNITS/3 ML CARTRIDGE SQ SCH ×2 (05:12→17:18)
[2019-08-29] MEDS: INSULIN REGULAR, HUMAN 300 UNIT/3 ML VIAL SQ PRN ×3 (05:12→22:50)
[2019-08-29 07:56] VITALS: BP 130/80
[2019-08-29] MEDS: HYDROGEN PEROXIDE 3% 118 ML BOTTLE TP SCH ×2 (08:16→20:15)
[2019-08-29] MEDS: COD LIVER OIL/ZINC OXIDE OINT 113 GM TUBE TOP SCH ×2 (08:52→20:15)
[2019-08-29] MEDS: ACIDOPHILUS/BULGARICUS CHEW TAB GT SCH ×2 (08:52→20:13)
[2019-08-29] MEDS: POTASSIUM CHLORIDE 20 MEQ POWDER PACKET GT SCH (08:52)
[2019-08-29] MEDS: DOCUSATE SODIUM 100 MG/10 ML LIQUID UDC GT SCH ×2 (08:52→20:11)
[2019-08-29] MEDS: GLUCERNA 1.2 1000ML LIQUID GT PRN (18:00)
[2019-08-29 20:00] VITALS: BP 127/78
[2019-08-29] MEDS: FERROUS SULFATE 330 MG/7.5 ML UDC- FOR SA ONLY GT SCH (20:12)
[2019-08-29] MEDS: ATORVASTATIN 10 MG TABLET GT SCH (20:15)
[2019-08-30] MEDS: SODIUM CHLORIDE 5% OPHT OINT 3.5 GM TUBE RIGHTEYE SCH ×6 (00:07→21:37)
[2019-08-30] MEDS: POLYVINYL ALCOHOL OPHT DROPS 15 ML BOTTLE EACHEYE SCH ×5 (03:14→20:00)
[2019-08-30] MEDS: PANTOPRAZOLE ORAL SUSPENSION 40 MG SUSPDR.PKT GT SCH (06:14)
[2019-08-30] MEDS: LEVOTHYROXINE SODIUM 50 MCG TABLET GT SCH (06:14)
[2019-08-30] MEDS: INSULIN GLARGINE,HUM 300 UNITS/3 ML CARTRIDGE SQ SCH ×2 (06:16→17:55)
[2019-08-30] MEDS: BLOOD SUGAR DIAGNOSTIC 1 EACH STRIP VI SCH ×3 (06:17→21:56)
[2019-08-30 07:41] VITALS: BP 114/75
[2019-08-30] MEDS: COD LIVER OIL/ZINC OXIDE OINT 113 GM TUBE TOP SCH ×2 (08:33→21:37)
[2019-08-30] MEDS: BISACODYL 10 MG SUPP.RECT RC SCH (08:33)
[2019-08-30] MEDS: POTASSIUM CHLORIDE 20 MEQ POWDER PACKET GT SCH (08:33)
[2019-08-30] MEDS: ACIDOPHILUS/BULGARICUS CHEW TAB GT SCH ×2 (08:33→21:37)
[2019-08-30] MEDS: DOCUSATE SODIUM 100 MG/10 ML LIQUID UDC GT SCH ×2 (08:33→21:36)
[2019-08-30] MEDS: HYDROGEN PEROXIDE 3% 118 ML BOTTLE TP SCH ×2 (09:18→21:00)
[2019-08-30] MEDS: INSULIN REGULAR, HUMAN 300 UNIT/3 ML VIAL SQ PRN ×2 (14:54→21:59)
[2019-08-30] MEDS: GLUCERNA 1.2 1000ML LIQUID GT PRN (18:01)
--- NOTE | 2019-08-30 18:04 | NUR ---
SEEM AND EXAMINED BY DR. CARVER, WITH NEW ORDERS, NOTED AND CARRIED OUT.
[2019-08-30 20:00] VITALS: BP 131/79
[2019-08-30] MEDS: FERROUS SULFATE 330 MG/7.5 ML UDC- FOR SA ONLY GT SCH (21:36)
[2019-08-30] MEDS: ATORVASTATIN 10 MG TABLET GT SCH (21:37)
[2019-08-31] MEDS: POLYVINYL ALCOHOL OPHT DROPS 15 ML BOTTLE EACHEYE SCH ×6 (00:08→20:00)
[2019-08-31] MEDS: SODIUM CHLORIDE 5% OPHT OINT 3.5 GM TUBE RIGHTEYE SCH ×6 (00:09→21:27)
[2019-08-31] MEDS: PANTOPRAZOLE ORAL SUSPENSION 40 MG SUSPDR.PKT GT SCH (05:00)
[2019-08-31] MEDS: LEVOTHYROXINE SODIUM 50 MCG TABLET GT SCH (05:00)
[2019-08-31] MEDS: BLOOD SUGAR DIAGNOSTIC 1 EACH STRIP VI SCH ×3 (05:01→22:01)
[2019-08-31] MEDS: INSULIN GLARGINE,HUM 300 UNITS/3 ML CARTRIDGE SQ SCH ×2 (05:01→17:08)
[2019-08-31] MEDS: INSULIN REGULAR, HUMAN 300 UNIT/3 ML VIAL SQ PRN ×3 (05:05→22:03)
[2019-08-31 07:46] VITALS: BP 107/64
[2019-08-31] MEDS: COD LIVER OIL/ZINC OXIDE OINT 113 GM TUBE TOP SCH ×2 (08:21→21:27)
[2019-08-31] MEDS: DOCUSATE SODIUM 100 MG/10 ML LIQUID UDC GT SCH ×2 (08:21→21:26)
[2019-08-31] MEDS: POTASSIUM CHLORIDE 20 MEQ POWDER PACKET GT SCH (08:21)
[2019-08-31] MEDS: ACIDOPHILUS/BULGARICUS CHEW TAB GT SCH ×2 (08:21→21:26)
[2019-08-31] MEDS: HYDROGEN PEROXIDE 3% 118 ML BOTTLE TP SCH ×2 (09:00→21:05)
[2019-08-31 20:13] VITALS: BP 137/81
[2019-08-31] MEDS: FERROUS SULFATE 330 MG/7.5 ML UDC- FOR SA ONLY GT SCH (21:26)
[2019-08-31] MEDS: ATORVASTATIN 10 MG TABLET GT SCH (21:27)
[2019-09-01] MEDS: SODIUM CHLORIDE 5% OPHT OINT 3.5 GM TUBE RIGHTEYE SCH ×6 (01:18→21:28)
[2019-09-01] MEDS: POLYVINYL ALCOHOL OPHT DROPS 15 ML BOTTLE EACHEYE SCH ×6 (04:17→20:00)
[2019-09-01] MEDS: PANTOPRAZOLE ORAL SUSPENSION 40 MG SUSPDR.PKT GT SCH (05:00)
[2019-09-01] MEDS: BLOOD SUGAR DIAGNOSTIC 1 EACH STRIP VI SCH ×3 (05:00→22:04)
[2019-09-01] MEDS: LEVOTHYROXINE SODIUM 50 MCG TABLET GT SCH (05:00)
[2019-09-01] MEDS: INSULIN GLARGINE,HUM 300 UNITS/3 ML CARTRIDGE SQ SCH ×2 (05:01→17:31)
[2019-09-01] MEDS: INSULIN REGULAR, HUMAN 300 UNIT/3 ML VIAL SQ PRN ×3 (05:02→22:06)
[2019-09-01 07:57] VITALS: BP 96/61
[2019-09-01] MEDS: HYDROGEN PEROXIDE 3% 118 ML BOTTLE TP SCH ×2 (09:00→21:29)
[2019-09-01] MEDS: COD LIVER OIL/ZINC OXIDE OINT 113 GM TUBE TOP SCH ×2 (09:05→21:28)
[2019-09-01] MEDS: BISACODYL 10 MG SUPP.RECT RC SCH (09:05)
[2019-09-01] MEDS: POTASSIUM CHLORIDE 20 MEQ POWDER PACKET GT SCH (09:05)
[2019-09-01] MEDS: ACIDOPHILUS/BULGARICUS CHEW TAB GT SCH ×2 (09:05→21:28)
[2019-09-01] MEDS: DOCUSATE SODIUM 100 MG/10 ML LIQUID UDC GT SCH ×2 (09:05→21:28)
[2019-09-01] MEDS: GLUCERNA 1.2 1000ML LIQUID GT PRN (16:30)
[2019-09-01 20:02] VITALS: BP 136/83
[2019-09-01] MEDS: FERROUS SULFATE 330 MG/7.5 ML UDC- FOR SA ONLY GT SCH (21:28)
[2019-09-01] MEDS: ATORVASTATIN 10 MG TABLET GT SCH (21:28)
[2019-09-02] MEDS: SODIUM CHLORIDE 5% OPHT OINT 3.5 GM TUBE RIGHTEYE SCH ×6 (00:52→21:56)
[2019-09-02] MEDS: POLYVINYL ALCOHOL OPHT DROPS 15 ML BOTTLE EACHEYE SCH ×6 (00:52→20:00)
[2019-09-02] MEDS: PANTOPRAZOLE ORAL SUSPENSION 40 MG SUSPDR.PKT GT SCH (05:00)
[2019-09-02] MEDS: LEVOTHYROXINE SODIUM 50 MCG TABLET GT SCH (05:00)
[2019-09-02] MEDS: BLOOD SUGAR DIAGNOSTIC 1 EACH STRIP VI SCH ×3 (05:00→22:07)
[2019-09-02] MEDS: INSULIN GLARGINE,HUM 300 UNITS/3 ML CARTRIDGE SQ SCH ×2 (05:05→17:13)
[2019-09-02] MEDS: INSULIN REGULAR, HUMAN 300 UNIT/3 ML VIAL SQ PRN ×3 (05:06→22:10)
[2019-09-02 08:03] VITALS: BP 107/65
[2019-09-02] MEDS: POTASSIUM CHLORIDE 20 MEQ POWDER PACKET GT SCH (08:38)
[2019-09-02] MEDS: DOCUSATE SODIUM 100 MG/10 ML LIQUID UDC GT SCH ×2 (08:38→21:56)
[2019-09-02] MEDS: ACIDOPHILUS/BULGARICUS CHEW TAB GT SCH ×2 (08:38→21:56)
[2019-09-02] MEDS: COD LIVER OIL/ZINC OXIDE OINT 113 GM TUBE TOP SCH ×2 (08:38→21:56)
[2019-09-02] MEDS: HYDROGEN PEROXIDE 3% 118 ML BOTTLE TP SCH ×2 (08:50→21:04)
[2019-09-02 20:05] VITALS: BP 140/78
[2019-09-02] MEDS: ATORVASTATIN 10 MG TABLET GT SCH (21:56)
[2019-09-02] MEDS: FERROUS SULFATE 330 MG/7.5 ML UDC- FOR SA ONLY GT SCH (21:56)
[2019-09-03] MEDS: POLYVINYL ALCOHOL OPHT DROPS 15 ML BOTTLE EACHEYE SCH ×6 (00:08→20:43)
[2019-09-03] MEDS: SODIUM CHLORIDE 5% OPHT OINT 3.5 GM TUBE RIGHTEYE SCH ×6 (01:05→21:42)
[2019-09-03] MEDS: BLOOD SUGAR DIAGNOSTIC 1 EACH STRIP VI SCH ×3 (05:41→22:11)
[2019-09-03] MEDS: PANTOPRAZOLE ORAL SUSPENSION 40 MG SUSPDR.PKT GT SCH (05:41)
[2019-09-03] MEDS: LEVOTHYROXINE SODIUM 50 MCG TABLET GT SCH (05:41)
[2019-09-03] MEDS: INSULIN GLARGINE,HUM 300 UNITS/3 ML CARTRIDGE SQ SCH ×2 (06:01→17:39)
[2019-09-03] MEDS: INSULIN REGULAR, HUMAN 300 UNIT/3 ML VIAL SQ PRN ×3 (06:03→22:13)
[2019-09-03 07:46] VITALS: BP 103/59
[2019-09-03] MEDS: HYDROGEN PEROXIDE 3% 118 ML BOTTLE TP SCH ×2 (08:24→21:39)
[2019-09-03] MEDS: POTASSIUM CHLORIDE 20 MEQ POWDER PACKET GT SCH (08:25)
[2019-09-03] MEDS: ACIDOPHILUS/BULGARICUS CHEW TAB GT SCH ×2 (08:25→21:41)
[2019-09-03] MEDS: BISACODYL 10 MG SUPP.RECT RC SCH (08:25)
[2019-09-03] MEDS: DOCUSATE SODIUM 100 MG/10 ML LIQUID UDC GT SCH ×2 (08:25→21:41)
[2019-09-03] MEDS: COD LIVER OIL/ZINC OXIDE OINT 113 GM TUBE TOP SCH ×2 (08:26→21:42)
[2019-09-03 19:58] VITALS: BP 133/76
[2019-09-03] MEDS: ATORVASTATIN 10 MG TABLET GT SCH (21:00)
[2019-09-03] MEDS: FERROUS SULFATE 330 MG/7.5 ML UDC- FOR SA ONLY GT SCH (21:41)
[2019-09-04] MEDS: POLYVINYL ALCOHOL OPHT DROPS 15 ML BOTTLE EACHEYE SCH ×6 (00:36→20:20)
[2019-09-04] MEDS: SODIUM CHLORIDE 5% OPHT OINT 3.5 GM TUBE RIGHTEYE SCH ×6 (01:09→20:21)
[2019-09-04] MEDS: PANTOPRAZOLE ORAL SUSPENSION 40 MG SUSPDR.PKT GT SCH (05:40)
[2019-09-04] MEDS: LEVOTHYROXINE SODIUM 50 MCG TABLET GT SCH (05:40)
[2019-09-04] MEDS: BLOOD SUGAR DIAGNOSTIC 1 EACH STRIP VI SCH ×3 (05:43→22:09)
[2019-09-04] MEDS: INSULIN GLARGINE,HUM 300 UNITS/3 ML CARTRIDGE SQ SCH ×2 (06:00→18:03)
[2019-09-04] MEDS: INSULIN REGULAR, HUMAN 300 UNIT/3 ML VIAL SQ PRN ×3 (06:02→22:12)
[2019-09-04] MEDS: GLUCERNA 1.2 1000ML LIQUID GT PRN (06:46)
[2019-09-04 07:41] VITALS: BP 90/59
[2019-09-04] MEDS: DOCUSATE SODIUM 100 MG/10 ML LIQUID UDC GT SCH ×2 (08:44→20:20)
[2019-09-04] MEDS: COD LIVER OIL/ZINC OXIDE OINT 113 GM TUBE TOP SCH ×2 (08:45→20:24)
[2019-09-04] MEDS: ACIDOPHILUS/BULGARICUS CHEW TAB GT SCH ×2 (08:45→20:21)
[2019-09-04] MEDS: POTASSIUM CHLORIDE 20 MEQ POWDER PACKET GT SCH (08:45)
[2019-09-04] MEDS: HYDROGEN PEROXIDE 3% 118 ML BOTTLE TP SCH ×2 (08:45→21:00)
[2019-09-04 19:49] VITALS: BP 131/73
[2019-09-04] MEDS: FERROUS SULFATE 330 MG/7.5 ML UDC- FOR SA ONLY GT SCH (20:20)
--- NOTE | 2019-09-04 20:20 | NUR ---
PT RECEIVED ON CONTINUOUS VENT, TRACH IN PLACED AND SECURED WITH TRACH TIE. AMBU BAG AND BACK UP TRACH AT BEDSIDE. TRACH CARE DONE. NO DISTRESS NOTED AT THIS TIME . SUCTION PRN. VENT ALARMS AUDIBLE, CHECKED AND RESET. WILL CONTINUE TO MONITOR.
[2019-09-04] MEDS: ATORVASTATIN 10 MG TABLET GT SCH (20:21)
[2019-09-05] MEDS: POLYVINYL ALCOHOL OPHT DROPS 15 ML BOTTLE EACHEYE SCH ×6 (00:17→20:14)
[2019-09-05] MEDS: GLUCERNA 1.2 1000ML LIQUID GT PRN (00:55)
[2019-09-05] MEDS: SODIUM CHLORIDE 5% OPHT OINT 3.5 GM TUBE RIGHTEYE SCH ×6 (01:05→20:17)
[2019-09-05] MEDS: PANTOPRAZOLE ORAL SUSPENSION 40 MG SUSPDR.PKT GT SCH (05:53)
[2019-09-05] MEDS: LEVOTHYROXINE SODIUM 50 MCG TABLET GT SCH (05:53)
[2019-09-05] MEDS: INSULIN GLARGINE,HUM 300 UNITS/3 ML CARTRIDGE SQ SCH ×2 (05:54→17:37)
[2019-09-05] MEDS: BLOOD SUGAR DIAGNOSTIC 1 EACH STRIP VI SCH ×3 (05:54→22:06)
[2019-09-05] MEDS: INSULIN REGULAR, HUMAN 300 UNIT/3 ML VIAL SQ PRN ×3 (05:56→22:08)
[2019-09-05 07:57] VITALS: BP 104/62
[2019-09-05] MEDS: BISACODYL 10 MG SUPP.RECT RC SCH (08:25)
[2019-09-05] MEDS: DOCUSATE SODIUM 100 MG/10 ML LIQUID UDC GT SCH ×2 (08:25→20:14)
[2019-09-05] MEDS: POTASSIUM CHLORIDE 20 MEQ POWDER PACKET GT SCH (08:25)
[2019-09-05] MEDS: ACIDOPHILUS/BULGARICUS CHEW TAB GT SCH ×2 (08:25→20:15)
[2019-09-05] MEDS: COD LIVER OIL/ZINC OXIDE OINT 113 GM TUBE TOP SCH ×2 (08:26→20:17)
[2019-09-05] MEDS: HYDROGEN PEROXIDE 3% 118 ML BOTTLE TP SCH ×2 (09:15→21:19)
--- NOTE | 2019-09-05 17:06 | NUR ---
New orders to do the Baseline [facility] Covid 19 test requirement.
[2019-09-05 19:49] VITALS: BP 101/63
[2019-09-05] MEDS: FERROUS SULFATE 330 MG/7.5 ML UDC- FOR SA ONLY GT SCH (20:14)
[2019-09-05] MEDS: ATORVASTATIN 10 MG TABLET GT SCH (20:17)
[2019-09-06] MEDS: POLYVINYL ALCOHOL OPHT DROPS 15 ML BOTTLE EACHEYE SCH ×6 (00:05→20:29)
[2019-09-06] MEDS: SODIUM CHLORIDE 5% OPHT OINT 3.5 GM TUBE RIGHTEYE SCH ×6 (01:00→20:29)
[2019-09-06] MEDS: GLUCERNA 1.2 1000ML LIQUID GT PRN ×2 (01:36→22:45)
[2019-09-06] MEDS: LEVOTHYROXINE SODIUM 50 MCG TABLET GT SCH (05:54)
[2019-09-06] MEDS: PANTOPRAZOLE ORAL SUSPENSION 40 MG SUSPDR.PKT GT SCH (05:54)
[2019-09-06] MEDS: INSULIN GLARGINE,HUM 300 UNITS/3 ML CARTRIDGE SQ SCH ×2 (05:55→17:22)
[2019-09-06] MEDS: BLOOD SUGAR DIAGNOSTIC 1 EACH STRIP VI SCH ×3 (05:56→22:09)
[2019-09-06] MEDS: INSULIN REGULAR, HUMAN 300 UNIT/3 ML VIAL SQ PRN ×3 (05:58→22:14)
[2019-09-06] MEDS: HYDROGEN PEROXIDE 3% 118 ML BOTTLE TP SCH ×2 (07:10→21:31)
[2019-09-06 07:35] VITALS: BP 113/69
[2019-09-06] MEDS: DOCUSATE SODIUM 100 MG/10 ML LIQUID UDC GT SCH ×2 (08:05→20:29)
[2019-09-06] MEDS: POTASSIUM CHLORIDE 20 MEQ POWDER PACKET GT SCH (08:05)
[2019-09-06] MEDS: ACIDOPHILUS/BULGARICUS CHEW TAB GT SCH ×2 (08:05→20:29)
[2019-09-06] MEDS: COD LIVER OIL/ZINC OXIDE OINT 113 GM TUBE TOP SCH ×2 (08:05→20:29)
[2019-09-06 20:00] VITALS: BP 115/73
[2019-09-06] MEDS: ATORVASTATIN 10 MG TABLET GT SCH (20:29)
[2019-09-06] MEDS: FERROUS SULFATE 330 MG/7.5 ML UDC- FOR SA ONLY GT SCH (20:29)
[2019-09-07] MEDS: POLYVINYL ALCOHOL OPHT DROPS 15 ML BOTTLE EACHEYE SCH ×7 (00:06→23:08)
[2019-09-07] MEDS: SODIUM CHLORIDE 5% OPHT OINT 3.5 GM TUBE RIGHTEYE SCH ×6 (01:00→21:09)
[2019-09-07] MEDS: PANTOPRAZOLE ORAL SUSPENSION 40 MG SUSPDR.PKT GT SCH (05:50)
[2019-09-07] MEDS: LEVOTHYROXINE SODIUM 50 MCG TABLET GT SCH (05:50)
[2019-09-07] MEDS: BLOOD SUGAR DIAGNOSTIC 1 EACH STRIP VI SCH ×3 (05:52→21:09)
[2019-09-07] MEDS: INSULIN GLARGINE,HUM 300 UNITS/3 ML CARTRIDGE SQ SCH ×2 (05:52→17:27)
[2019-09-07] MEDS: INSULIN REGULAR, HUMAN 300 UNIT/3 ML VIAL SQ PRN ×3 (05:53→21:13)
[2019-09-07 07:52] VITALS: BP 120/78
[2019-09-07] MEDS: POTASSIUM CHLORIDE 20 MEQ POWDER PACKET GT SCH (08:28)
[2019-09-07] MEDS: ACIDOPHILUS/BULGARICUS CHEW TAB GT SCH ×2 (08:28→20:57)
[2019-09-07] MEDS: DOCUSATE SODIUM 100 MG/10 ML LIQUID UDC GT SCH ×2 (08:28→20:57)
[2019-09-07] MEDS: BISACODYL 10 MG SUPP.RECT RC SCH (08:28)
[2019-09-07] MEDS: COD LIVER OIL/ZINC OXIDE OINT 113 GM TUBE TOP SCH ×2 (08:29→20:57)
[2019-09-07] MEDS: HYDROGEN PEROXIDE 3% 118 ML BOTTLE TP SCH ×2 (08:39→21:34)
--- NOTE | 2019-09-07 17:00 | NUR ---
PT. NEGATIVE FOR COVID 19 TEST.
[2019-09-07] MEDS: ATORVASTATIN 10 MG TABLET GT SCH (20:57)
[2019-09-07] MEDS: FERROUS SULFATE 330 MG/7.5 ML UDC- FOR SA ONLY GT SCH (20:57)
[2019-09-07] MEDS: GLUCERNA 1.2 1000ML LIQUID GT PRN (21:15)
[2019-09-07 22:43] VITALS: BP 134/77
[2019-09-08] MEDS: SODIUM CHLORIDE 5% OPHT OINT 3.5 GM TUBE RIGHTEYE SCH ×6 (00:23→20:51)
[2019-09-08] MEDS: POLYVINYL ALCOHOL OPHT DROPS 15 ML BOTTLE EACHEYE SCH ×6 (03:28→23:05)
[2019-09-08] MEDS: PANTOPRAZOLE ORAL SUSPENSION 40 MG SUSPDR.PKT GT SCH (05:18)
[2019-09-08] MEDS: LEVOTHYROXINE SODIUM 50 MCG TABLET GT SCH (05:18)
[2019-09-08] MEDS: BLOOD SUGAR DIAGNOSTIC 1 EACH STRIP VI SCH ×3 (05:19→21:19)
[2019-09-08] MEDS: INSULIN GLARGINE,HUM 300 UNITS/3 ML CARTRIDGE SQ SCH ×2 (05:19→17:17)
[2019-09-08] MEDS: INSULIN REGULAR, HUMAN 300 UNIT/3 ML VIAL SQ PRN ×3 (05:20→21:20)
[2019-09-08 07:39] VITALS: BP 96/60
[2019-09-08] MEDS: COD LIVER OIL/ZINC OXIDE OINT 113 GM TUBE TOP SCH ×2 (08:58→20:51)
[2019-09-08] MEDS: DOCUSATE SODIUM 100 MG/10 ML LIQUID UDC GT SCH ×2 (08:58→20:51)
[2019-09-08] MEDS: ACIDOPHILUS/BULGARICUS CHEW TAB GT SCH ×2 (08:58→20:51)
[2019-09-08] MEDS: POTASSIUM CHLORIDE 20 MEQ POWDER PACKET GT SCH (08:58)
[2019-09-08] MEDS: HYDROGEN PEROXIDE 3% 118 ML BOTTLE TP SCH ×2 (09:47→21:36)
--- NOTE | 2019-09-08 10:00 | NUR ---
SEEN AND EXAMINED BY DR. CARVER AND WITH NNO.
[2019-09-08] MEDS: GLUCERNA 1.2 1000ML LIQUID GT PRN (18:05)
--- NOTE | 2019-09-08 20:15 | NUR ---
PT RECEIVED ON CONTINUOUS VENT, TRACH TUBE IN PLACE AND SECURED WITH TRACH TIE. BACK UP TRACH AND AMBU BAG AT BEDSIDE. TRACH CARE DONE. NO DISTRESS NOTED AT THIS TIME . SUCTION PRN. VENT ALARMS AUDIBLE, CHECKED AND RESET. WILL CONTINUE TO MONITOR.
[2019-09-08] MEDS: ATORVASTATIN 10 MG TABLET GT SCH (20:51)
[2019-09-08] MEDS: FERROUS SULFATE 330 MG/7.5 ML UDC- FOR SA ONLY GT SCH (20:51)
[2019-09-08 22:00] VITALS: BP 140/81
[2019-09-09] MEDS: SODIUM CHLORIDE 5% OPHT OINT 3.5 GM TUBE RIGHTEYE SCH ×6 (01:09→20:52)
[2019-09-09] MEDS: POLYVINYL ALCOHOL OPHT DROPS 15 ML BOTTLE EACHEYE SCH ×6 (03:37→23:10)
[2019-09-09] MEDS: INSULIN GLARGINE,HUM 300 UNITS/3 ML CARTRIDGE SQ SCH ×2 (05:37→17:05)
[2019-09-09] MEDS: PANTOPRAZOLE ORAL SUSPENSION 40 MG SUSPDR.PKT GT SCH (05:37)
[2019-09-09] MEDS: LEVOTHYROXINE SODIUM 50 MCG TABLET GT SCH (05:37)
[2019-09-09] MEDS: INSULIN REGULAR, HUMAN 300 UNIT/3 ML VIAL SQ PRN ×3 (05:38→21:26)
[2019-09-09] MEDS: BLOOD SUGAR DIAGNOSTIC 1 EACH STRIP VI SCH ×3 (05:38→21:23)
[2019-09-09 07:46] VITALS: BP 108/78
[2019-09-09] MEDS: COD LIVER OIL/ZINC OXIDE OINT 113 GM TUBE TOP SCH ×2 (08:15→20:52)
[2019-09-09] MEDS: BISACODYL 10 MG SUPP.RECT RC SCH (08:15)
[2019-09-09] MEDS: POTASSIUM CHLORIDE 20 MEQ POWDER PACKET GT SCH (08:15)
[2019-09-09] MEDS: DOCUSATE SODIUM 100 MG/10 ML LIQUID UDC GT SCH ×2 (08:15→20:52)
[2019-09-09] MEDS: ACIDOPHILUS/BULGARICUS CHEW TAB GT SCH ×2 (08:15→20:52)
[2019-09-09] MEDS: HYDROGEN PEROXIDE 3% 118 ML BOTTLE TP SCH ×2 (08:49→21:26)
[2019-09-09] MEDS: GLUCERNA 1.2 1000ML LIQUID GT PRN (15:33)
[2019-09-09] MEDS: FERROUS SULFATE 330 MG/7.5 ML UDC- FOR SA ONLY GT SCH (20:52)
[2019-09-09] MEDS: ATORVASTATIN 10 MG TABLET GT SCH (20:52)
[2019-09-09 21:53] VITALS: BP 128/72
[2019-09-10] MEDS: SODIUM CHLORIDE 5% OPHT OINT 3.5 GM TUBE RIGHTEYE SCH ×6 (00:39→20:03)
[2019-09-10] MEDS: POLYVINYL ALCOHOL OPHT DROPS 15 ML BOTTLE EACHEYE SCH ×5 (04:01→20:02)
[2019-09-10] MEDS: PANTOPRAZOLE ORAL SUSPENSION 40 MG SUSPDR.PKT GT SCH (05:24)
[2019-09-10] MEDS: BLOOD SUGAR DIAGNOSTIC 1 EACH STRIP VI SCH ×3 (05:24→21:40)
[2019-09-10] MEDS: LEVOTHYROXINE SODIUM 50 MCG TABLET GT SCH (05:24)
[2019-09-10] MEDS: INSULIN GLARGINE,HUM 300 UNITS/3 ML CARTRIDGE SQ SCH ×2 (05:25→17:49)
[2019-09-10] MEDS: INSULIN REGULAR, HUMAN 300 UNIT/3 ML VIAL SQ PRN ×3 (05:26→21:45)
[2019-09-10 07:21] VITALS: BP 106/72
[2019-09-10] MEDS: DOCUSATE SODIUM 100 MG/10 ML LIQUID UDC GT SCH ×2 (08:34→20:02)
[2019-09-10] MEDS: POTASSIUM CHLORIDE 20 MEQ POWDER PACKET GT SCH (08:35)
[2019-09-10] MEDS: ACIDOPHILUS/BULGARICUS CHEW TAB GT SCH ×2 (08:35→20:03)
[2019-09-10] MEDS: COD LIVER OIL/ZINC OXIDE OINT 113 GM TUBE TOP SCH ×2 (08:36→20:03)
[2019-09-10] MEDS: HYDROGEN PEROXIDE 3% 118 ML BOTTLE TP SCH ×2 (09:00→21:42)
[2019-09-10] MEDS: GLUCERNA 1.2 1000ML LIQUID GT PRN (14:47)
[2019-09-10] MEDS: FERROUS SULFATE 330 MG/7.5 ML UDC- FOR SA ONLY GT SCH (20:02)
[2019-09-10] MEDS: ATORVASTATIN 10 MG TABLET GT SCH (20:03)
[2019-09-10 20:07] VITALS: BP 125/68
[2019-09-11] MEDS: POLYVINYL ALCOHOL OPHT DROPS 15 ML BOTTLE EACHEYE SCH ×6 (00:33→20:00)
[2019-09-11] MEDS: SODIUM CHLORIDE 5% OPHT OINT 3.5 GM TUBE RIGHTEYE SCH ×6 (00:33→21:59)
[2019-09-11] MEDS: LEVOTHYROXINE SODIUM 50 MCG TABLET GT SCH (05:13)
[2019-09-11] MEDS: PANTOPRAZOLE ORAL SUSPENSION 40 MG SUSPDR.PKT GT SCH (05:13)
[2019-09-11] MEDS: BLOOD SUGAR DIAGNOSTIC 1 EACH STRIP VI SCH ×3 (05:23→21:59)
[2019-09-11] MEDS: INSULIN REGULAR, HUMAN 300 UNIT/3 ML VIAL SQ PRN ×3 (05:26→22:01)
[2019-09-11] MEDS: INSULIN GLARGINE,HUM 300 UNITS/3 ML CARTRIDGE SQ SCH ×2 (05:27→17:26)
[2019-09-11 08:15] VITALS: BP 105/66
[2019-09-11] MEDS: HYDROGEN PEROXIDE 3% 118 ML BOTTLE TP SCH ×2 (08:57→21:27)
[2019-09-11] MEDS: ACIDOPHILUS/BULGARICUS CHEW TAB GT SCH ×2 (09:09→21:58)
[2019-09-11] MEDS: DOCUSATE SODIUM 100 MG/10 ML LIQUID UDC GT SCH ×2 (09:09→21:57)
[2019-09-11] MEDS: POTASSIUM CHLORIDE 20 MEQ POWDER PACKET GT SCH (09:10)
[2019-09-11] MEDS: BISACODYL 10 MG SUPP.RECT RC SCH (09:11)
[2019-09-11] MEDS: COD LIVER OIL/ZINC OXIDE OINT 113 GM TUBE TOP SCH ×2 (09:11→21:59)
--- NOTE | 2019-09-11 13:00 | NUR ---
SEEN BY ANAID Maguire AND WITH NNO.
[2019-09-11] MEDS: GLUCERNA 1.2 1000ML LIQUID GT PRN (14:12)
[2019-09-11 20:24] VITALS: BP 127/77
[2019-09-11] MEDS: FERROUS SULFATE 330 MG/7.5 ML UDC- FOR SA ONLY GT SCH (21:57)
[2019-09-11] MEDS: ATORVASTATIN 10 MG TABLET GT SCH (21:58)
[2019-09-12] MEDS: SODIUM CHLORIDE 5% OPHT OINT 3.5 GM TUBE RIGHTEYE SCH ×6 (01:00→21:55)
[2019-09-12] MEDS: POLYVINYL ALCOHOL OPHT DROPS 15 ML BOTTLE EACHEYE SCH ×6 (04:00→20:00)
[2019-09-12] MEDS: PANTOPRAZOLE ORAL SUSPENSION 40 MG SUSPDR.PKT GT SCH (05:19)
[2019-09-12] MEDS: LEVOTHYROXINE SODIUM 50 MCG TABLET GT SCH (05:20)
[2019-09-12] MEDS: INSULIN GLARGINE,HUM 300 UNITS/3 ML CARTRIDGE SQ SCH ×2 (05:24→17:53)
[2019-09-12] MEDS: INSULIN REGULAR, HUMAN 300 UNIT/3 ML VIAL SQ PRN ×3 (05:25→21:56)
[2019-09-12] MEDS: BLOOD SUGAR DIAGNOSTIC 1 EACH STRIP VI SCH ×3 (05:25→21:55)
[2019-09-12 07:45] VITALS: BP 106/74
[2019-09-12] MEDS: HYDROGEN PEROXIDE 3% 118 ML BOTTLE TP SCH ×2 (09:00→21:46)
[2019-09-12] MEDS: DOCUSATE SODIUM 100 MG/10 ML LIQUID UDC GT SCH ×2 (09:01→21:55)
[2019-09-12] MEDS: ACIDOPHILUS/BULGARICUS CHEW TAB GT SCH ×2 (09:01→21:55)
[2019-09-12] MEDS: COD LIVER OIL/ZINC OXIDE OINT 113 GM TUBE TOP SCH ×2 (09:03→21:55)
[2019-09-12] MEDS: POTASSIUM CHLORIDE 20 MEQ POWDER PACKET GT SCH (09:03)
[2019-09-12] MEDS: GLUCERNA 1.2 1000ML LIQUID GT PRN (12:49)
[2019-09-12 20:00] VITALS: BP 119/71
[2019-09-12] MEDS: FERROUS SULFATE 330 MG/7.5 ML UDC- FOR SA ONLY GT SCH (21:55)
[2019-09-12] MEDS: ATORVASTATIN 10 MG TABLET GT SCH (21:55)
[2019-09-13] MEDS: SODIUM CHLORIDE 5% OPHT OINT 3.5 GM TUBE RIGHTEYE SCH ×6 (01:27→21:00)
[2019-09-13] MEDS: POLYVINYL ALCOHOL OPHT DROPS 15 ML BOTTLE EACHEYE SCH ×6 (03:39→20:00)
[2019-09-13] MEDS: PANTOPRAZOLE ORAL SUSPENSION 40 MG SUSPDR.PKT GT SCH (05:59)
[2019-09-13] MEDS: LEVOTHYROXINE SODIUM 50 MCG TABLET GT SCH (05:59)
[2019-09-13] MEDS: INSULIN GLARGINE,HUM 300 UNITS/3 ML CARTRIDGE SQ SCH ×2 (06:00→17:09)
[2019-09-13] MEDS: BLOOD SUGAR DIAGNOSTIC 1 EACH STRIP VI SCH ×3 (06:00→22:06)
[2019-09-13] MEDS: INSULIN REGULAR, HUMAN 300 UNIT/3 ML VIAL SQ PRN ×3 (06:02→22:07)
[2019-09-13 07:45] VITALS: BP 111/70
[2019-09-13] MEDS: ACIDOPHILUS/BULGARICUS CHEW TAB GT SCH ×2 (08:46→21:00)
[2019-09-13] MEDS: BISACODYL 10 MG SUPP.RECT RC SCH (08:46)
[2019-09-13] MEDS: COD LIVER OIL/ZINC OXIDE OINT 113 GM TUBE TOP SCH ×2 (08:46→21:00)
[2019-09-13] MEDS: POTASSIUM CHLORIDE 20 MEQ POWDER PACKET GT SCH (08:46)
[2019-09-13] MEDS: DOCUSATE SODIUM 100 MG/10 ML LIQUID UDC GT SCH ×2 (08:46→21:59)
[2019-09-13] MEDS: HYDROGEN PEROXIDE 3% 118 ML BOTTLE TP SCH ×2 (09:00→21:16)
[2019-09-13] MEDS: GLUCERNA 1.2 1000ML LIQUID GT PRN (14:00)
[2019-09-13 20:08] VITALS: BP 100/65
[2019-09-13] MEDS: ATORVASTATIN 10 MG TABLET GT SCH (21:00)
[2019-09-13] MEDS: FERROUS SULFATE 330 MG/7.5 ML UDC- FOR SA ONLY GT SCH (21:00)
[2019-09-14] MEDS: SODIUM CHLORIDE 5% OPHT OINT 3.5 GM TUBE RIGHTEYE SCH ×6 (01:00→21:52)
[2019-09-14] MEDS: POLYVINYL ALCOHOL OPHT DROPS 15 ML BOTTLE EACHEYE SCH ×6 (04:00→20:18)
[2019-09-14] MEDS: PANTOPRAZOLE ORAL SUSPENSION 40 MG SUSPDR.PKT GT SCH (05:40)
[2019-09-14] MEDS: LEVOTHYROXINE SODIUM 50 MCG TABLET GT SCH (05:40)
[2019-09-14] MEDS: INSULIN GLARGINE,HUM 300 UNITS/3 ML CARTRIDGE SQ SCH ×2 (05:41→18:12)
[2019-09-14] MEDS: BLOOD SUGAR DIAGNOSTIC 1 EACH STRIP VI SCH ×3 (05:41→22:25)
[2019-09-14] MEDS: INSULIN REGULAR, HUMAN 300 UNIT/3 ML VIAL SQ PRN ×2 (05:42→13:35)
[2019-09-14] MEDS: GLUCERNA 1.2 1000ML LIQUID GT PRN (06:06)
[2019-09-14 07:46] VITALS: BP 127/76
[2019-09-14] MEDS: ACIDOPHILUS/BULGARICUS CHEW TAB GT SCH ×2 (08:44→21:52)
[2019-09-14] MEDS: DOCUSATE SODIUM 100 MG/10 ML LIQUID UDC GT SCH ×2 (08:44→21:52)
[2019-09-14] MEDS: POTASSIUM CHLORIDE 20 MEQ POWDER PACKET GT SCH (08:45)
[2019-09-14] MEDS: COD LIVER OIL/ZINC OXIDE OINT 113 GM TUBE TOP SCH ×2 (08:47→21:52)
[2019-09-14] MEDS: HYDROGEN PEROXIDE 3% 118 ML BOTTLE TP SCH ×2 (09:57→21:30)
[2019-09-14 20:02] VITALS: BP 104/63
[2019-09-14] MEDS: ATORVASTATIN 10 MG TABLET GT SCH (21:52)
[2019-09-14] MEDS: FERROUS SULFATE 330 MG/7.5 ML UDC- FOR SA ONLY GT SCH (21:52)
[2019-09-15] MEDS: POLYVINYL ALCOHOL OPHT DROPS 15 ML BOTTLE EACHEYE SCH ×6 (00:11→20:55)
[2019-09-15] MEDS: SODIUM CHLORIDE 5% OPHT OINT 3.5 GM TUBE RIGHTEYE SCH ×6 (01:17→20:54)
[2019-09-15] MEDS: GLUCERNA 1.2 1000ML LIQUID GT PRN (04:22)
[2019-09-15] MEDS: INSULIN GLARGINE,HUM 300 UNITS/3 ML CARTRIDGE SQ SCH ×2 (05:24→17:27)
[2019-09-15] MEDS: PANTOPRAZOLE ORAL SUSPENSION 40 MG SUSPDR.PKT GT SCH (05:24)
[2019-09-15] MEDS: LEVOTHYROXINE SODIUM 50 MCG TABLET GT SCH (05:24)
[2019-09-15] MEDS: BLOOD SUGAR DIAGNOSTIC 1 EACH STRIP VI SCH ×3 (05:24→21:05)
[2019-09-15] MEDS: INSULIN REGULAR, HUMAN 300 UNIT/3 ML VIAL SQ PRN ×3 (05:26→21:08)
[2019-09-15 07:56] VITALS: BP 104/67
[2019-09-15] MEDS: HYDROGEN PEROXIDE 3% 118 ML BOTTLE TP SCH ×2 (08:50→21:02)
[2019-09-15] MEDS: POTASSIUM CHLORIDE 20 MEQ POWDER PACKET GT SCH (09:51)
[2019-09-15] MEDS: BISACODYL 10 MG SUPP.RECT RC SCH (09:51)
[2019-09-15] MEDS: ACIDOPHILUS/BULGARICUS CHEW TAB GT SCH ×2 (09:51→20:54)
[2019-09-15] MEDS: DOCUSATE SODIUM 100 MG/10 ML LIQUID UDC GT SCH ×2 (09:51→20:54)
[2019-09-15] MEDS: COD LIVER OIL/ZINC OXIDE OINT 113 GM TUBE TOP SCH ×2 (09:51→20:54)
[2019-09-15 19:50] VITALS: BP 108/66
[2019-09-15] MEDS: FERROUS SULFATE 330 MG/7.5 ML UDC- FOR SA ONLY GT SCH (20:54)
[2019-09-15] MEDS: ATORVASTATIN 10 MG TABLET GT SCH (20:54)
[2019-09-16] MEDS: SODIUM CHLORIDE 5% OPHT OINT 3.5 GM TUBE RIGHTEYE SCH ×6 (01:30→21:45)
[2019-09-16] MEDS: POLYVINYL ALCOHOL OPHT DROPS 15 ML BOTTLE EACHEYE SCH ×6 (04:45→20:00)
[2019-09-16] MEDS: BLOOD SUGAR DIAGNOSTIC 1 EACH STRIP VI SCH ×3 (05:36→21:44)
[2019-09-16] MEDS: LEVOTHYROXINE SODIUM 50 MCG TABLET GT SCH (05:36)
[2019-09-16] MEDS: PANTOPRAZOLE ORAL SUSPENSION 40 MG SUSPDR.PKT GT SCH (05:36)
[2019-09-16] MEDS: INSULIN GLARGINE,HUM 300 UNITS/3 ML CARTRIDGE SQ SCH ×2 (05:37→17:41)
[2019-09-16] MEDS: HYDROGEN PEROXIDE 3% 118 ML BOTTLE TP SCH ×2 (07:18→21:14)
[2019-09-16 07:43] VITALS: BP 98/58
[2019-09-16] MEDS: POTASSIUM CHLORIDE 20 MEQ POWDER PACKET GT SCH (08:41)
[2019-09-16] MEDS: ACIDOPHILUS/BULGARICUS CHEW TAB GT SCH ×2 (08:41→21:45)
[2019-09-16] MEDS: DOCUSATE SODIUM 100 MG/10 ML LIQUID UDC GT SCH ×2 (08:41→21:44)
[2019-09-16] MEDS: COD LIVER OIL/ZINC OXIDE OINT 113 GM TUBE TOP SCH ×2 (08:42→21:45)
[2019-09-16] MEDS: INSULIN REGULAR, HUMAN 300 UNIT/3 ML VIAL SQ PRN ×2 (13:50→21:47)
[2019-09-16 19:59] VITALS: BP 109/66
[2019-09-16] MEDS: FERROUS SULFATE 330 MG/7.5 ML UDC- FOR SA ONLY GT SCH (21:44)
[2019-09-16] MEDS: ATORVASTATIN 10 MG TABLET GT SCH (21:45)
[2019-09-17] MEDS: SODIUM CHLORIDE 5% OPHT OINT 3.5 GM TUBE RIGHTEYE SCH ×6 (01:15→20:50)
[2019-09-17] MEDS: BLOOD SUGAR DIAGNOSTIC 1 EACH STRIP VI SCH ×3 (05:00→22:47)
[2019-09-17] MEDS: POLYVINYL ALCOHOL OPHT DROPS 15 ML BOTTLE EACHEYE SCH ×6 (05:00→20:48)
[2019-09-17] MEDS: LEVOTHYROXINE SODIUM 50 MCG TABLET GT SCH (05:00)
[2019-09-17] MEDS: PANTOPRAZOLE ORAL SUSPENSION 40 MG SUSPDR.PKT GT SCH (05:00)
[2019-09-17] MEDS: INSULIN REGULAR, HUMAN 300 UNIT/3 ML VIAL SQ PRN ×3 (05:03→22:52)
[2019-09-17] MEDS: INSULIN GLARGINE,HUM 300 UNITS/3 ML CARTRIDGE SQ SCH ×2 (05:04→17:13)
[2019-09-17] MEDS: GLUCERNA 1.2 1000ML LIQUID GT PRN (07:01)
[2019-09-17 07:37] VITALS: BP 106/64
[2019-09-17] MEDS: ACIDOPHILUS/BULGARICUS CHEW TAB GT SCH ×2 (08:27→20:48)
[2019-09-17] MEDS: BISACODYL 10 MG SUPP.RECT RC SCH (08:27)
[2019-09-17] MEDS: POTASSIUM CHLORIDE 20 MEQ POWDER PACKET GT SCH (08:27)
[2019-09-17] MEDS: DOCUSATE SODIUM 100 MG/10 ML LIQUID UDC GT SCH ×2 (08:27→20:48)
[2019-09-17] MEDS: COD LIVER OIL/ZINC OXIDE OINT 113 GM TUBE TOP SCH ×2 (08:27→20:50)
[2019-09-17] MEDS: HYDROGEN PEROXIDE 3% 118 ML BOTTLE TP SCH ×2 (08:35→21:17)
[2019-09-17 20:26] VITALS: BP 122/70
[2019-09-17] MEDS: FERROUS SULFATE 330 MG/7.5 ML UDC- FOR SA ONLY GT SCH (20:48)
[2019-09-17] MEDS: ATORVASTATIN 10 MG TABLET GT SCH (20:48)
[2019-09-18] MEDS: POLYVINYL ALCOHOL OPHT DROPS 15 ML BOTTLE EACHEYE SCH ×6 (00:24→20:54)
[2019-09-18] MEDS: SODIUM CHLORIDE 5% OPHT OINT 3.5 GM TUBE RIGHTEYE SCH ×6 (00:24→20:56)
[2019-09-18] MEDS: GLUCERNA 1.2 1000ML LIQUID GT PRN (00:47)
[2019-09-18] MEDS: PANTOPRAZOLE ORAL SUSPENSION 40 MG SUSPDR.PKT GT SCH (05:26)
[2019-09-18] MEDS: BLOOD SUGAR DIAGNOSTIC 1 EACH STRIP VI SCH ×3 (05:26→21:38)
[2019-09-18] MEDS: LEVOTHYROXINE SODIUM 50 MCG TABLET GT SCH (05:26)
[2019-09-18] MEDS: INSULIN REGULAR, HUMAN 300 UNIT/3 ML VIAL SQ PRN ×3 (05:29→21:40)
[2019-09-18] MEDS: INSULIN GLARGINE,HUM 300 UNITS/3 ML CARTRIDGE SQ SCH ×2 (05:30→17:20)
[2019-09-18 07:45] VITALS: BP 108/70
[2019-09-18] MEDS: DOCUSATE SODIUM 100 MG/10 ML LIQUID UDC GT SCH ×2 (08:11→20:54)
[2019-09-18] MEDS: ACIDOPHILUS/BULGARICUS CHEW TAB GT SCH ×2 (08:11→20:55)
[2019-09-18] MEDS: POTASSIUM CHLORIDE 20 MEQ POWDER PACKET GT SCH (08:12)
[2019-09-18] MEDS: COD LIVER OIL/ZINC OXIDE OINT 113 GM TUBE TOP SCH ×2 (08:17→20:56)
[2019-09-18] MEDS: HYDROGEN PEROXIDE 3% 118 ML BOTTLE TP SCH ×2 (09:00→21:27)
[2019-09-18 20:00] VITALS: BP 128/72
[2019-09-18] MEDS: FERROUS SULFATE 330 MG/7.5 ML UDC- FOR SA ONLY GT SCH (20:55)
[2019-09-18] MEDS: ATORVASTATIN 10 MG TABLET GT SCH (20:56)
[2019-09-19] MEDS: SODIUM CHLORIDE 5% OPHT OINT 3.5 GM TUBE RIGHTEYE SCH ×6 (00:59→21:57)
[2019-09-19] MEDS: POLYVINYL ALCOHOL OPHT DROPS 15 ML BOTTLE EACHEYE SCH ×6 (00:59→20:00)
[2019-09-19] MEDS: GLUCERNA 1.2 1000ML LIQUID GT PRN (01:23)
[2019-09-19] MEDS: BLOOD SUGAR DIAGNOSTIC 1 EACH STRIP VI SCH ×3 (05:00→22:45)
[2019-09-19] MEDS: PANTOPRAZOLE ORAL SUSPENSION 40 MG SUSPDR.PKT GT SCH (05:00)
[2019-09-19] MEDS: LEVOTHYROXINE SODIUM 50 MCG TABLET GT SCH (05:00)
[2019-09-19] MEDS: INSULIN REGULAR, HUMAN 300 UNIT/3 ML VIAL SQ PRN ×3 (05:02→22:55)
[2019-09-19] MEDS: INSULIN GLARGINE,HUM 300 UNITS/3 ML CARTRIDGE SQ SCH ×2 (05:04→17:49)
[2019-09-19 07:57] VITALS: BP 103/62
[2019-09-19] MEDS: DOCUSATE SODIUM 100 MG/10 ML LIQUID UDC GT SCH ×2 (08:48→21:57)
[2019-09-19] MEDS: ACIDOPHILUS/BULGARICUS CHEW TAB GT SCH ×2 (08:49→21:57)
[2019-09-19] MEDS: COD LIVER OIL/ZINC OXIDE OINT 113 GM TUBE TOP SCH ×2 (08:50→21:57)
[2019-09-19] MEDS: BISACODYL 10 MG SUPP.RECT RC SCH (08:50)
[2019-09-19] MEDS: POTASSIUM CHLORIDE 20 MEQ POWDER PACKET GT SCH (08:50)
[2019-09-19] MEDS: HYDROGEN PEROXIDE 3% 118 ML BOTTLE TP SCH ×2 (08:50→21:17)
[2019-09-19 20:08] VITALS: BP 144/80
[2019-09-19] MEDS: FERROUS SULFATE 330 MG/7.5 ML UDC- FOR SA ONLY GT SCH (21:57)
[2019-09-19] MEDS: ATORVASTATIN 10 MG TABLET GT SCH (21:57)
[2019-09-20] MEDS: POLYVINYL ALCOHOL OPHT DROPS 15 ML BOTTLE EACHEYE SCH ×6 (00:26→20:00)
[2019-09-20] MEDS: SODIUM CHLORIDE 5% OPHT OINT 3.5 GM TUBE RIGHTEYE SCH ×6 (00:26→21:54)
[2019-09-20] MEDS: INSULIN GLARGINE,HUM 300 UNITS/3 ML CARTRIDGE SQ SCH ×2 (06:13→18:02)
[2019-09-20] MEDS: BLOOD SUGAR DIAGNOSTIC 1 EACH STRIP VI SCH ×3 (06:13→21:55)
[2019-09-20] MEDS: INSULIN REGULAR, HUMAN 300 UNIT/3 ML VIAL SQ PRN ×3 (06:14→21:53)
[2019-09-20] MEDS: LEVOTHYROXINE SODIUM 50 MCG TABLET GT SCH (06:15)
[2019-09-20] MEDS: PANTOPRAZOLE ORAL SUSPENSION 40 MG SUSPDR.PKT GT SCH (06:15)
[2019-09-20] MEDS: DOCUSATE SODIUM 100 MG/10 ML LIQUID UDC GT SCH ×2 (08:27→21:54)
[2019-09-20] MEDS: POTASSIUM CHLORIDE 20 MEQ POWDER PACKET GT SCH (08:28)
[2019-09-20] MEDS: ACIDOPHILUS/BULGARICUS CHEW TAB GT SCH ×2 (08:28→21:54)
[2019-09-20] MEDS: COD LIVER OIL/ZINC OXIDE OINT 113 GM TUBE TOP SCH ×2 (08:29→21:54)
[2019-09-20] MEDS: HYDROGEN PEROXIDE 3% 118 ML BOTTLE TP SCH ×2 (09:44→21:02)
[2019-09-20 20:11] VITALS: BP 112/67
[2019-09-20] MEDS: FERROUS SULFATE 330 MG/7.5 ML UDC- FOR SA ONLY GT SCH (21:54)
[2019-09-20] MEDS: ATORVASTATIN 10 MG TABLET GT SCH (21:54)
[2019-09-20] MEDS: GLUCERNA 1.2 1000ML LIQUID GT PRN (23:03)
[2019-09-21] MEDS: SODIUM CHLORIDE 5% OPHT OINT 3.5 GM TUBE RIGHTEYE SCH ×6 (01:16→20:53)
[2019-09-21] MEDS: POLYVINYL ALCOHOL OPHT DROPS 15 ML BOTTLE EACHEYE SCH ×6 (04:06→20:53)
[2019-09-21] MEDS: PANTOPRAZOLE ORAL SUSPENSION 40 MG SUSPDR.PKT GT SCH (05:14)
[2019-09-21] MEDS: BLOOD SUGAR DIAGNOSTIC 1 EACH STRIP VI SCH ×3 (05:14→22:01)
[2019-09-21] MEDS: LEVOTHYROXINE SODIUM 50 MCG TABLET GT SCH (05:14)
[2019-09-21] MEDS: INSULIN GLARGINE,HUM 300 UNITS/3 ML CARTRIDGE SQ SCH ×2 (05:15→17:32)
[2019-09-21] MEDS: INSULIN REGULAR, HUMAN 300 UNIT/3 ML VIAL SQ PRN ×3 (05:21→22:03)
[2019-09-21 07:49] VITALS: BP 98/54
[2019-09-21] MEDS: DOCUSATE SODIUM 100 MG/10 ML LIQUID UDC GT SCH ×2 (08:49→20:53)
[2019-09-21] MEDS: ACIDOPHILUS/BULGARICUS CHEW TAB GT SCH ×2 (08:50→20:53)
[2019-09-21] MEDS: POTASSIUM CHLORIDE 20 MEQ POWDER PACKET GT SCH (08:50)
[2019-09-21] MEDS: BISACODYL 10 MG SUPP.RECT RC SCH (08:51)
[2019-09-21] MEDS: COD LIVER OIL/ZINC OXIDE OINT 113 GM TUBE TOP SCH ×2 (08:51→20:53)
[2019-09-21] MEDS: HYDROGEN PEROXIDE 3% 118 ML BOTTLE TP SCH ×2 (08:59→21:10)
[2019-09-21] MEDS: GLUCERNA 1.2 1000ML LIQUID GT PRN (17:33)
[2019-09-21 20:02] VITALS: BP 104/61
[2019-09-21] MEDS: ATORVASTATIN 10 MG TABLET GT SCH (20:53)
[2019-09-21] MEDS: FERROUS SULFATE 330 MG/7.5 ML UDC- FOR SA ONLY GT SCH (20:53)
[2019-09-22] MEDS: SODIUM CHLORIDE 5% OPHT OINT 3.5 GM TUBE RIGHTEYE SCH ×6 (01:08→21:56)
[2019-09-22] MEDS: POLYVINYL ALCOHOL OPHT DROPS 15 ML BOTTLE EACHEYE SCH ×6 (04:00→19:56)
[2019-09-22] MEDS: PANTOPRAZOLE ORAL SUSPENSION 40 MG SUSPDR.PKT GT SCH (05:17)
[2019-09-22] MEDS: BLOOD SUGAR DIAGNOSTIC 1 EACH STRIP VI SCH ×3 (05:18→22:09)
[2019-09-22] MEDS: LEVOTHYROXINE SODIUM 50 MCG TABLET GT SCH (05:18)
[2019-09-22] MEDS: INSULIN GLARGINE,HUM 300 UNITS/3 ML CARTRIDGE SQ SCH ×2 (05:22→17:06)
[2019-09-22] MEDS: INSULIN REGULAR, HUMAN 300 UNIT/3 ML VIAL SQ PRN ×3 (05:23→22:12)
[2019-09-22 07:40] VITALS: BP 118/66
[2019-09-22] MEDS: DOCUSATE SODIUM 100 MG/10 ML LIQUID UDC GT SCH ×2 (08:24→21:56)
[2019-09-22] MEDS: COD LIVER OIL/ZINC OXIDE OINT 113 GM TUBE TOP SCH ×2 (08:24→21:56)
[2019-09-22] MEDS: POTASSIUM CHLORIDE 20 MEQ POWDER PACKET GT SCH (08:24)
[2019-09-22] MEDS: ACIDOPHILUS/BULGARICUS CHEW TAB GT SCH ×2 (08:24→21:56)
[2019-09-22] MEDS: HYDROGEN PEROXIDE 3% 118 ML BOTTLE TP SCH ×2 (08:43→21:47)
[2019-09-22] MEDS: GLUCERNA 1.2 1000ML LIQUID GT PRN (15:42)
--- NOTE | 2019-09-22 20:15 | NUR ---
PT RECEIVED ON CONTINUOUS VENT, TRACH CARE DONE. TRACH TUBE IN PLACE AND SECURED WITH TRACH TIE. BACK UP TRACH AND AMBU BAG AT BEDSIDE. NO DISTRESS NOTED AT THIS TIME . SUCTION PRN. VENT ALARMS AUDIBLE, CHECKED AND RESET. WILL CONTINUE TO MONITOR.
[2019-09-22 20:27] VITALS: BP 133/65
[2019-09-22] MEDS: FERROUS SULFATE 330 MG/7.5 ML UDC- FOR SA ONLY GT SCH (21:56)
[2019-09-22] MEDS: ATORVASTATIN 10 MG TABLET GT SCH (21:56)
[2019-09-23] MEDS: POLYVINYL ALCOHOL OPHT DROPS 15 ML BOTTLE EACHEYE SCH ×6 (00:35→20:00)
[2019-09-23] MEDS: SODIUM CHLORIDE 5% OPHT OINT 3.5 GM TUBE RIGHTEYE SCH ×6 (00:35→21:29)
[2019-09-23] MEDS: PANTOPRAZOLE ORAL SUSPENSION 40 MG SUSPDR.PKT GT SCH (05:10)
[2019-09-23] MEDS: LEVOTHYROXINE SODIUM 50 MCG TABLET GT SCH (05:10)
[2019-09-23] MEDS: INSULIN GLARGINE,HUM 300 UNITS/3 ML CARTRIDGE SQ SCH ×2 (05:15→17:04)
[2019-09-23] MEDS: BLOOD SUGAR DIAGNOSTIC 1 EACH STRIP VI SCH ×3 (05:20→22:02)
[2019-09-23] MEDS: INSULIN REGULAR, HUMAN 300 UNIT/3 ML VIAL SQ PRN ×3 (05:21→22:05)
[2019-09-23 07:46] VITALS: BP 96/63
[2019-09-23] MEDS: COD LIVER OIL/ZINC OXIDE OINT 113 GM TUBE TOP SCH ×2 (08:18→21:29)
[2019-09-23] MEDS: POTASSIUM CHLORIDE 20 MEQ POWDER PACKET GT SCH (08:18)
[2019-09-23] MEDS: BISACODYL 10 MG SUPP.RECT RC SCH (08:18)
[2019-09-23] MEDS: ACIDOPHILUS/BULGARICUS CHEW TAB GT SCH ×2 (08:18→21:29)
[2019-09-23] MEDS: DOCUSATE SODIUM 100 MG/10 ML LIQUID UDC GT SCH ×2 (08:18→21:29)
[2019-09-23] MEDS: HYDROGEN PEROXIDE 3% 118 ML BOTTLE TP SCH ×2 (08:33→21:34)
[2019-09-23] MEDS: GLUCERNA 1.2 1000ML LIQUID GT PRN (14:03)
[2019-09-23 20:26] VITALS: BP 104/69
[2019-09-23] MEDS: FERROUS SULFATE 330 MG/7.5 ML UDC- FOR SA ONLY GT SCH (21:29)
[2019-09-23] MEDS: ATORVASTATIN 10 MG TABLET GT SCH (21:29)
[2019-09-24] MEDS: POLYVINYL ALCOHOL OPHT DROPS 15 ML BOTTLE EACHEYE SCH ×6 (00:36→20:53)
[2019-09-24] MEDS: SODIUM CHLORIDE 5% OPHT OINT 3.5 GM TUBE RIGHTEYE SCH ×6 (01:08→21:56)
[2019-09-24] MEDS: INSULIN REGULAR, HUMAN 300 UNIT/3 ML VIAL SQ PRN ×3 (05:22→22:24)
[2019-09-24] MEDS: INSULIN GLARGINE,HUM 300 UNITS/3 ML CARTRIDGE SQ SCH ×2 (05:23→17:01)
[2019-09-24] MEDS: LEVOTHYROXINE SODIUM 50 MCG TABLET GT SCH (05:38)
[2019-09-24] MEDS: PANTOPRAZOLE ORAL SUSPENSION 40 MG SUSPDR.PKT GT SCH (05:38)
[2019-09-24] MEDS: BLOOD SUGAR DIAGNOSTIC 1 EACH STRIP VI SCH ×3 (05:39→22:22)
[2019-09-24 07:46] VITALS: BP 106/58
[2019-09-24] MEDS: POTASSIUM CHLORIDE 20 MEQ POWDER PACKET GT SCH (08:36)
[2019-09-24] MEDS: DOCUSATE SODIUM 100 MG/10 ML LIQUID UDC GT SCH ×2 (08:36→21:55)
[2019-09-24] MEDS: ACIDOPHILUS/BULGARICUS CHEW TAB GT SCH ×2 (08:36→21:56)
[2019-09-24] MEDS: COD LIVER OIL/ZINC OXIDE OINT 113 GM TUBE TOP SCH ×2 (08:37→21:56)
[2019-09-24] MEDS: HYDROGEN PEROXIDE 3% 118 ML BOTTLE TP SCH ×2 (09:25→21:47)
[2019-09-24] MEDS: GLUCERNA 1.2 1000ML LIQUID GT PRN (12:16)
--- NOTE | 2019-09-24 18:33 | NUR ---
SEEN BY ANAID Maguire AND DR. CMAARENA AND WITH NNO.
[2019-09-24 20:19] VITALS: BP 105/60
[2019-09-24] MEDS: ATORVASTATIN 10 MG TABLET GT SCH (21:56)
[2019-09-24] MEDS: FERROUS SULFATE 330 MG/7.5 ML UDC- FOR SA ONLY GT SCH (21:56)
[2019-09-25] MEDS: POLYVINYL ALCOHOL OPHT DROPS 15 ML BOTTLE EACHEYE SCH ×6 (00:38→20:18)
[2019-09-25] MEDS: SODIUM CHLORIDE 5% OPHT OINT 3.5 GM TUBE RIGHTEYE SCH ×6 (01:03→20:27)
[2019-09-25] MEDS: INSULIN GLARGINE,HUM 300 UNITS/3 ML CARTRIDGE SQ SCH ×2 (05:13→17:09)
[2019-09-25] MEDS: INSULIN REGULAR, HUMAN 300 UNIT/3 ML VIAL SQ PRN ×3 (05:14→22:10)
[2019-09-25] MEDS: PANTOPRAZOLE ORAL SUSPENSION 40 MG SUSPDR.PKT GT SCH (05:55)
[2019-09-25] MEDS: LEVOTHYROXINE SODIUM 50 MCG TABLET GT SCH (05:55)
[2019-09-25] MEDS: BLOOD SUGAR DIAGNOSTIC 1 EACH STRIP VI SCH ×3 (05:56→22:05)
[2019-09-25 07:54] VITALS: BP 93/58
[2019-09-25] MEDS: DOCUSATE SODIUM 100 MG/10 ML LIQUID UDC GT SCH ×2 (08:23→20:18)
[2019-09-25] MEDS: POTASSIUM CHLORIDE 20 MEQ POWDER PACKET GT SCH (08:24)
[2019-09-25] MEDS: ACIDOPHILUS/BULGARICUS CHEW TAB GT SCH ×2 (08:24→20:24)
[2019-09-25] MEDS: COD LIVER OIL/ZINC OXIDE OINT 113 GM TUBE TOP SCH ×2 (08:25→20:27)
[2019-09-25] MEDS: BISACODYL 10 MG SUPP.RECT RC SCH (08:25)
[2019-09-25] MEDS: HYDROGEN PEROXIDE 3% 118 ML BOTTLE TP SCH ×2 (09:49→21:15)
[2019-09-25] MEDS: GLUCERNA 1.2 1000ML LIQUID GT PRN (12:18)
--- NOTE | 2019-09-25 13:13 | NUR ---
Seen and examined by Maira Rosario ,aware L thumb is edematous ,with new orders noted and carried out.
[2019-09-25] MEDS: FERROUS SULFATE 330 MG/7.5 ML UDC- FOR SA ONLY GT SCH (20:18)
[2019-09-25 20:20] VITALS: BP 128/74
[2019-09-25] MEDS: ATORVASTATIN 10 MG TABLET GT SCH (20:24)
[2019-09-26] MEDS: POLYVINYL ALCOHOL OPHT DROPS 15 ML BOTTLE EACHEYE SCH ×6 (00:19→20:03)
[2019-09-26] MEDS: SODIUM CHLORIDE 5% OPHT OINT 3.5 GM TUBE RIGHTEYE SCH ×6 (01:58→20:33)
[2019-09-26] MEDS: LEVOTHYROXINE SODIUM 50 MCG TABLET GT SCH (06:21)
[2019-09-26] MEDS: PANTOPRAZOLE ORAL SUSPENSION 40 MG SUSPDR.PKT GT SCH (06:21)
[2019-09-26] MEDS: INSULIN GLARGINE,HUM 300 UNITS/3 ML CARTRIDGE SQ SCH ×2 (06:22→17:59)
[2019-09-26] MEDS: BLOOD SUGAR DIAGNOSTIC 1 EACH STRIP VI SCH ×3 (06:22→22:12)
[2019-09-26] MEDS: INSULIN REGULAR, HUMAN 300 UNIT/3 ML VIAL SQ PRN ×3 (06:23→22:13)
[2019-09-26 07:45] VITALS: BP 98/61
[2019-09-26] MEDS: DOCUSATE SODIUM 100 MG/10 ML LIQUID UDC GT SCH ×2 (08:53→20:31)
[2019-09-26] MEDS: ACIDOPHILUS/BULGARICUS CHEW TAB GT SCH ×2 (08:53→20:31)
[2019-09-26] MEDS: COD LIVER OIL/ZINC OXIDE OINT 113 GM TUBE TOP SCH ×2 (08:58→20:34)
[2019-09-26] MEDS: POTASSIUM CHLORIDE 20 MEQ POWDER PACKET GT SCH (08:58)
[2019-09-26] MEDS: NEOMY/BACITRA/POLYMYXIN B OINT UD PACKET TP SCH ×3 (08:59→20:34)
[2019-09-26] MEDS: HYDROGEN PEROXIDE 3% 118 ML BOTTLE TP SCH ×2 (09:05→20:59)
--- NOTE | 2019-09-26 13:10 | NUR ---
Seen and examined by Dr Newman with new orders noted.
--- NOTE | 2019-09-26 18:37 | NUR ---
New tx orders noted and carried out for L thumb ingrown nail.
[2019-09-26 20:00] VITALS: BP 111/69
[2019-09-26] MEDS: FERROUS SULFATE 330 MG/7.5 ML UDC- FOR SA ONLY GT SCH (20:31)
[2019-09-26] MEDS: ATORVASTATIN 10 MG TABLET GT SCH (20:33)
[2019-09-27] MEDS: POLYVINYL ALCOHOL OPHT DROPS 15 ML BOTTLE EACHEYE SCH ×6 (00:14→20:00)
[2019-09-27] MEDS: SODIUM CHLORIDE 5% OPHT OINT 3.5 GM TUBE RIGHTEYE SCH ×6 (01:00→20:20)
[2019-09-27] MEDS: PANTOPRAZOLE ORAL SUSPENSION 40 MG SUSPDR.PKT GT SCH (05:51)
[2019-09-27] MEDS: LEVOTHYROXINE SODIUM 50 MCG TABLET GT SCH (05:51)
[2019-09-27] MEDS: BLOOD SUGAR DIAGNOSTIC 1 EACH STRIP VI SCH ×3 (05:53→22:08)
[2019-09-27] MEDS: INSULIN GLARGINE,HUM 300 UNITS/3 ML CARTRIDGE SQ SCH ×2 (05:53→17:40)
[2019-09-27 07:46] VITALS: BP 110/68
[2019-09-27] MEDS: POTASSIUM CHLORIDE 20 MEQ POWDER PACKET GT SCH (08:15)
[2019-09-27] MEDS: DOCUSATE SODIUM 100 MG/10 ML LIQUID UDC GT SCH ×2 (08:15→20:20)
[2019-09-27] MEDS: ACIDOPHILUS/BULGARICUS CHEW TAB GT SCH ×2 (08:15→20:20)
[2019-09-27] MEDS: GLUCERNA 1.2 1000ML LIQUID GT PRN (08:16)
[2019-09-27] MEDS: COD LIVER OIL/ZINC OXIDE OINT 113 GM TUBE TOP SCH ×2 (08:16→20:20)
[2019-09-27] MEDS: NEOMY/BACITRA/POLYMYXIN B OINT UD PACKET TP SCH ×4 (08:16→20:20)
[2019-09-27] MEDS: BISACODYL 10 MG SUPP.RECT RC SCH (08:16)
[2019-09-27] MEDS: HYDROGEN PEROXIDE 3% 118 ML BOTTLE TP SCH ×2 (08:45→21:08)
[2019-09-27] MEDS: INSULIN REGULAR, HUMAN 300 UNIT/3 ML VIAL SQ PRN ×2 (13:51→22:09)
[2019-09-27] MEDS: FERROUS SULFATE 330 MG/7.5 ML UDC- FOR SA ONLY GT SCH (20:20)
[2019-09-27] MEDS: ATORVASTATIN 10 MG TABLET GT SCH (20:20)
[2019-09-27 20:41] VITALS: BP 122/78
[2019-09-28] MEDS: POLYVINYL ALCOHOL OPHT DROPS 15 ML BOTTLE EACHEYE SCH ×7 (00:18→23:08)
[2019-09-28] MEDS: GLUCERNA 1.2 1000ML LIQUID GT PRN ×2 (00:44→22:02)
[2019-09-28] MEDS: SODIUM CHLORIDE 5% OPHT OINT 3.5 GM TUBE RIGHTEYE SCH ×6 (01:00→21:00)
[2019-09-28] MEDS: PANTOPRAZOLE ORAL SUSPENSION 40 MG SUSPDR.PKT GT SCH (06:14)
[2019-09-28] MEDS: LEVOTHYROXINE SODIUM 50 MCG TABLET GT SCH (06:14)
[2019-09-28] MEDS: INSULIN GLARGINE,HUM 300 UNITS/3 ML CARTRIDGE SQ SCH ×2 (06:15→17:59)
[2019-09-28] MEDS: BLOOD SUGAR DIAGNOSTIC 1 EACH STRIP VI SCH ×3 (06:16→21:13)
[2019-09-28] MEDS: INSULIN REGULAR, HUMAN 300 UNIT/3 ML VIAL SQ PRN ×3 (06:17→21:15)
[2019-09-28 07:50] VITALS: BP 97/70
[2019-09-28] MEDS: COD LIVER OIL/ZINC OXIDE OINT 113 GM TUBE TOP SCH ×2 (08:31→21:00)
[2019-09-28] MEDS: ACIDOPHILUS/BULGARICUS CHEW TAB GT SCH ×2 (08:31→21:00)
[2019-09-28] MEDS: DOCUSATE SODIUM 100 MG/10 ML LIQUID UDC GT SCH ×2 (08:31→21:00)
[2019-09-28] MEDS: NEOMY/BACITRA/POLYMYXIN B OINT UD PACKET TP SCH ×3 (08:31→21:01)
[2019-09-28] MEDS: POTASSIUM CHLORIDE 20 MEQ POWDER PACKET GT SCH (08:31)
[2019-09-28] MEDS: HYDROGEN PEROXIDE 3% 118 ML BOTTLE TP SCH ×2 (09:00→21:38)
--- NOTE | 2019-09-28 12:06 | NUR ---
WOUND CARE CONSULT: PT SEEN FOR LEFT THUMB WOUND/IRRITATION WITH SURROUNDING REDNESS. CONCUR WITH CURRENT ORDER FOR TRIPLE AB OINTMENT AND BANDAGE. RECOMMEND PLASTICS CONSULT. DR NEGRETE NOTIFIED OF CONSULT REQUEST. DISCUSSED WITH NURSING STAFF. WILL SEE PRLucrecia. IN AGREEMENT WITH PLAN OF CARE.
--- NOTE | 2019-09-28 17:42 | NUR ---
Seen by Aga Boyer P.A regarding left thumb abrasion, new order given to cleanse with normal saline, apply small amount of xeroform, wrap with dry dressing daily, x30 days. daughter Mana notified of pt's condition.
[2019-09-28 19:55] VITALS: BP 118/68
[2019-09-28] MEDS: ATORVASTATIN 10 MG TABLET GT SCH (21:00)
[2019-09-28] MEDS: FERROUS SULFATE 330 MG/7.5 ML UDC- FOR SA ONLY GT SCH (21:00)
[2019-09-29] MEDS: SODIUM CHLORIDE 5% OPHT OINT 3.5 GM TUBE RIGHTEYE SCH ×6 (00:20→21:04)
[2019-09-29] MEDS: POLYVINYL ALCOHOL OPHT DROPS 15 ML BOTTLE EACHEYE SCH ×6 (03:29→23:09)
[2019-09-29] MEDS: BLOOD SUGAR DIAGNOSTIC 1 EACH STRIP VI SCH ×3 (05:30→21:16)
[2019-09-29] MEDS: LEVOTHYROXINE SODIUM 50 MCG TABLET GT SCH (05:30)
[2019-09-29] MEDS: PANTOPRAZOLE ORAL SUSPENSION 40 MG SUSPDR.PKT GT SCH (05:30)
[2019-09-29] MEDS: INSULIN GLARGINE,HUM 300 UNITS/3 ML CARTRIDGE SQ SCH ×2 (05:31→17:35)
[2019-09-29] MEDS: INSULIN REGULAR, HUMAN 300 UNIT/3 ML VIAL SQ PRN ×3 (05:32→21:18)
[2019-09-29 07:49] VITALS: BP 100/65
[2019-09-29] MEDS: COD LIVER OIL/ZINC OXIDE OINT 113 GM TUBE TOP SCH ×2 (08:40→21:04)
[2019-09-29] MEDS: ACIDOPHILUS/BULGARICUS CHEW TAB GT SCH ×2 (08:40→21:04)
[2019-09-29] MEDS: NEOMY/BACITRA/POLYMYXIN B OINT UD PACKET TP SCH ×2 (08:40→21:04)
[2019-09-29] MEDS: BISACODYL 10 MG SUPP.RECT RC SCH (08:40)
[2019-09-29] MEDS: DOCUSATE SODIUM 100 MG/10 ML LIQUID UDC GT SCH ×2 (08:40→21:04)
[2019-09-29] MEDS: POTASSIUM CHLORIDE 20 MEQ POWDER PACKET GT SCH (08:40)
[2019-09-29] MEDS: HYDROGEN PEROXIDE 3% 118 ML BOTTLE TP SCH ×2 (08:50→21:32)
[2019-09-29] MEDS: GLUCERNA 1.2 1000ML LIQUID GT PRN (17:35)
[2019-09-29 20:00] VITALS: BP 118/64
[2019-09-29] MEDS: ATORVASTATIN 10 MG TABLET GT SCH (21:04)
[2019-09-29] MEDS: FERROUS SULFATE 330 MG/7.5 ML UDC- FOR SA ONLY GT SCH (21:04)
[2019-09-30] MEDS: SODIUM CHLORIDE 5% OPHT OINT 3.5 GM TUBE RIGHTEYE SCH ×6 (01:05→20:59)
[2019-09-30] MEDS: POLYVINYL ALCOHOL OPHT DROPS 15 ML BOTTLE EACHEYE SCH ×6 (04:01→23:09)
[2019-09-30] MEDS: PANTOPRAZOLE ORAL SUSPENSION 40 MG SUSPDR.PKT GT SCH (05:30)
[2019-09-30] MEDS: LEVOTHYROXINE SODIUM 50 MCG TABLET GT SCH (05:31)
[2019-09-30] MEDS: BLOOD SUGAR DIAGNOSTIC 1 EACH STRIP VI SCH ×3 (05:31→21:18)
[2019-09-30] MEDS: INSULIN GLARGINE,HUM 300 UNITS/3 ML CARTRIDGE SQ SCH ×2 (05:32→17:32)
[2019-09-30] MEDS: INSULIN REGULAR, HUMAN 300 UNIT/3 ML VIAL SQ PRN ×3 (05:33→21:19)
[2019-09-30 07:33] VITALS: BP 98/60
[2019-09-30] MEDS: DOCUSATE SODIUM 100 MG/10 ML LIQUID UDC GT SCH ×2 (08:42→20:59)
[2019-09-30] MEDS: ACIDOPHILUS/BULGARICUS CHEW TAB GT SCH ×2 (08:44→20:59)
[2019-09-30] MEDS: POTASSIUM CHLORIDE 20 MEQ POWDER PACKET GT SCH (08:44)
[2019-09-30] MEDS: COD LIVER OIL/ZINC OXIDE OINT 113 GM TUBE TOP SCH ×2 (08:45→20:59)
[2019-09-30] MEDS: NEOMY/BACITRA/POLYMYXIN B OINT UD PACKET TP SCH ×2 (08:45→20:59)
[2019-09-30] MEDS: HYDROGEN PEROXIDE 3% 118 ML BOTTLE TP SCH ×2 (09:28→21:16)
[2019-09-30 20:27] VITALS: BP 116/67
[2019-09-30] MEDS: ATORVASTATIN 10 MG TABLET GT SCH (20:59)
[2019-09-30] MEDS: FERROUS SULFATE 330 MG/7.5 ML UDC- FOR SA ONLY GT SCH (20:59)
[2019-09-30] MEDS: GLUCERNA 1.2 1000ML LIQUID GT PRN (22:43)
[2019-10-01] MEDS: SODIUM CHLORIDE 5% OPHT OINT 3.5 GM TUBE RIGHTEYE SCH ×6 (00:07→20:31)
[2019-10-01] MEDS: POLYVINYL ALCOHOL OPHT DROPS 15 ML BOTTLE EACHEYE SCH ×6 (03:15→23:41)
[2019-10-01] MEDS: INSULIN GLARGINE,HUM 300 UNITS/3 ML CARTRIDGE SQ SCH ×3 (05:32→17:07)
[2019-10-01] MEDS: PANTOPRAZOLE ORAL SUSPENSION 40 MG SUSPDR.PKT GT SCH (05:32)
[2019-10-01] MEDS: LEVOTHYROXINE SODIUM 50 MCG TABLET GT SCH (05:32)
[2019-10-01] MEDS: BLOOD SUGAR DIAGNOSTIC 1 EACH STRIP VI SCH ×4 (05:32→21:44)
[2019-10-01] MEDS: INSULIN REGULAR, HUMAN 300 UNIT/3 ML VIAL SQ PRN ×4 (05:33→21:47)
--- NOTE | 2019-10-01 06:53 | NUR ---
SEEN BY WITH NNO.
[2019-10-01 07:26] VITALS: BP 98/60
[2019-10-01] MEDS: DOCUSATE SODIUM 100 MG/10 ML LIQUID UDC GT SCH ×2 (08:19→20:29)
[2019-10-01] MEDS: BISACODYL 10 MG SUPP.RECT RC SCH (08:20)
[2019-10-01] MEDS: NEOMY/BACITRA/POLYMYXIN B OINT UD PACKET TP SCH ×2 (08:20→20:32)
[2019-10-01] MEDS: COD LIVER OIL/ZINC OXIDE OINT 113 GM TUBE TOP SCH ×2 (08:20→20:32)
[2019-10-01] MEDS: POTASSIUM CHLORIDE 20 MEQ POWDER PACKET GT SCH (08:20)
[2019-10-01] MEDS: ACIDOPHILUS/BULGARICUS CHEW TAB GT SCH ×2 (08:20→20:30)
[2019-10-01] MEDS: HYDROGEN PEROXIDE 3% 118 ML BOTTLE TP SCH ×2 (09:29→20:32)
[2019-10-01 20:11] VITALS: BP 121/73
[2019-10-01] MEDS: FERROUS SULFATE 330 MG/7.5 ML UDC- FOR SA ONLY GT SCH (20:29)
[2019-10-01] MEDS: ATORVASTATIN 10 MG TABLET GT SCH (20:30)
[2019-10-02] MEDS: SODIUM CHLORIDE 5% OPHT OINT 3.5 GM TUBE RIGHTEYE SCH ×6 (01:17→21:42)
[2019-10-02] MEDS: POLYVINYL ALCOHOL OPHT DROPS 15 ML BOTTLE EACHEYE SCH ×5 (03:35→20:00)
[2019-10-02] MEDS: PANTOPRAZOLE ORAL SUSPENSION 40 MG SUSPDR.PKT GT SCH (04:55)
[2019-10-02] MEDS: LEVOTHYROXINE SODIUM 50 MCG TABLET GT SCH (04:55)
[2019-10-02] MEDS: BLOOD SUGAR DIAGNOSTIC 1 EACH STRIP VI SCH ×3 (04:57→21:47)
[2019-10-02] MEDS: INSULIN REGULAR, HUMAN 300 UNIT/3 ML VIAL SQ PRN ×3 (04:58→21:50)
[2019-10-02] MEDS: INSULIN GLARGINE,HUM 300 UNITS/3 ML CARTRIDGE SQ SCH ×2 (04:59→17:49)
[2019-10-02 07:44] VITALS: BP 104/64
[2019-10-02] MEDS: HYDROGEN PEROXIDE 3% 118 ML BOTTLE TP SCH ×2 (08:20→20:57)
[2019-10-02] MEDS: ACIDOPHILUS/BULGARICUS CHEW TAB GT SCH ×2 (08:58→21:41)
[2019-10-02] MEDS: DOCUSATE SODIUM 100 MG/10 ML LIQUID UDC GT SCH ×2 (08:58→21:41)
[2019-10-02] MEDS: POTASSIUM CHLORIDE 20 MEQ POWDER PACKET GT SCH (08:59)
[2019-10-02] MEDS: COD LIVER OIL/ZINC OXIDE OINT 113 GM TUBE TOP SCH ×2 (08:59→21:43)
[2019-10-02] MEDS: NEOMY/BACITRA/POLYMYXIN B OINT UD PACKET TP SCH ×2 (09:00→21:43)
[2019-10-02] MEDS: GLUCERNA 1.2 1000ML LIQUID GT PRN (11:50)
--- NOTE | 2019-10-02 13:45 | NUR ---
Pharmacy Update for Today's 10/02/19 IDT meeting VS: Temp 97.7 BP 98/60 HR 56 LABS: (from 08/13/19, no new labs) Wbc 7.4 H/H 12.1/37.6 Plt 214 Na 136 K 4.1 Cl 101 CO2 26 BUN/SCr 26/0.7 BS 181 Ca 9.7 MEDICATION USE REVIEWED: > Pt not on any anti-psych or anti-seizure medications > Previously on phenytoin, neurology d/c'd on 04/30/19 after prolonged course of tapering. No seizures noted since d/c or during taper. Remains stable at this time > On moderate sliding scale insulin + 24 units Lantus AMHS since 08/30, BS ranges 126-200 since last adjustment > On KCl 40meq daily since 05/31/19; last K 4.1 > Pt on Synthroid 50mcg daily. TSH on 07/04/19 was 2.128 (0.358-3.740), within therapeutic range. > PRN MED USAGE: (August) Tylenol for pain used x 0 Tylenol for temp used x 0 MOM for constipation used x 0 NEW ORDERS NOTED: > Covid test 09/04 negative > Per Rx rec, Lantus adjusted 22units to 24units AMHS 08/30 Patient reviewed and discussed in detail at today's IDT and reported most recent lantus adjustment per rx rec and subsequent BG ranges. No further recommendations at this time, no issues noted per staff, pt remains stable on current regimen. Will continue to follow
--- NOTE | 2019-10-02 14:48 | NUR ---
INTERDISCIPLINARY PLAN OF CARE CONFERENCE was held today. Patient's daughter was not able to participate in the meeting. Dr. Nolan and the Interdisciplinary Team reviewed the current plan of care in detail. RN reported on patient's medical condition and results of recent x-ray. No major changes in condition were reported. See RN IDT conference notes. Pharmacy discussed changes in some of the patient's medications. See all disciplines IDT notes and physician's progress notes for additional details.
[2019-10-02 20:00] VITALS: BP 134/80
[2019-10-02] MEDS: FERROUS SULFATE 330 MG/7.5 ML UDC- FOR SA ONLY GT SCH (21:41)
[2019-10-02] MEDS: ATORVASTATIN 10 MG TABLET GT SCH (21:42)
[2019-10-03] MEDS: POLYVINYL ALCOHOL OPHT DROPS 15 ML BOTTLE EACHEYE SCH ×6 (00:33→20:00)
[2019-10-03] MEDS: SODIUM CHLORIDE 5% OPHT OINT 3.5 GM TUBE RIGHTEYE SCH ×6 (00:33→21:00)
[2019-10-03] MEDS: LEVOTHYROXINE SODIUM 50 MCG TABLET GT SCH (05:04)
[2019-10-03] MEDS: PANTOPRAZOLE ORAL SUSPENSION 40 MG SUSPDR.PKT GT SCH (05:04)
[2019-10-03] MEDS: BLOOD SUGAR DIAGNOSTIC 1 EACH STRIP VI SCH ×3 (05:05→22:07)
[2019-10-03] MEDS: INSULIN REGULAR, HUMAN 300 UNIT/3 ML VIAL SQ PRN ×3 (05:09→22:09)
[2019-10-03] MEDS: INSULIN GLARGINE,HUM 300 UNITS/3 ML CARTRIDGE SQ SCH ×2 (05:11→17:52)
[2019-10-03 07:49] VITALS: BP 101/64
[2019-10-03] MEDS: DOCUSATE SODIUM 100 MG/10 ML LIQUID UDC GT SCH ×2 (08:21→21:00)
[2019-10-03] MEDS: ACIDOPHILUS/BULGARICUS CHEW TAB GT SCH ×2 (08:21→21:00)
[2019-10-03] MEDS: POTASSIUM CHLORIDE 20 MEQ POWDER PACKET GT SCH (08:22)
[2019-10-03] MEDS: BISACODYL 10 MG SUPP.RECT RC SCH (08:23)
[2019-10-03] MEDS: COD LIVER OIL/ZINC OXIDE OINT 113 GM TUBE TOP SCH ×2 (08:24→21:00)
[2019-10-03] MEDS: HYDROGEN PEROXIDE 3% 118 ML BOTTLE TP SCH ×2 (08:50→21:01)
[2019-10-03] MEDS: GLUCERNA 1.2 1000ML LIQUID GT PRN (17:22)
[2019-10-03 20:00] VITALS: BP 115/75
[2019-10-03] MEDS: ATORVASTATIN 10 MG TABLET GT SCH (21:00)
[2019-10-03] MEDS: FERROUS SULFATE 330 MG/7.5 ML UDC- FOR SA ONLY GT SCH (21:00)
[2019-10-04] MEDS: SODIUM CHLORIDE 5% OPHT OINT 3.5 GM TUBE RIGHTEYE SCH ×6 (01:17→21:48)
[2019-10-04] MEDS: POLYVINYL ALCOHOL OPHT DROPS 15 ML BOTTLE EACHEYE SCH ×6 (04:00→20:00)
[2019-10-04] MEDS: INSULIN GLARGINE,HUM 300 UNITS/3 ML CARTRIDGE SQ SCH ×2 (06:46→17:11)
[2019-10-04] MEDS: PANTOPRAZOLE ORAL SUSPENSION 40 MG SUSPDR.PKT GT SCH (06:46)
[2019-10-04] MEDS: LEVOTHYROXINE SODIUM 50 MCG TABLET GT SCH (06:46)
[2019-10-04] MEDS: INSULIN REGULAR, HUMAN 300 UNIT/3 ML VIAL SQ PRN ×3 (06:47→21:57)
[2019-10-04] MEDS: BLOOD SUGAR DIAGNOSTIC 1 EACH STRIP VI SCH ×3 (06:47→21:53)
[2019-10-04 07:57] VITALS: BP 105/60
[2019-10-04] MEDS: DOCUSATE SODIUM 100 MG/10 ML LIQUID UDC GT SCH ×2 (08:24→21:47)
[2019-10-04] MEDS: ACIDOPHILUS/BULGARICUS CHEW TAB GT SCH ×2 (08:25→21:47)
[2019-10-04] MEDS: POTASSIUM CHLORIDE 20 MEQ POWDER PACKET GT SCH (08:27)
[2019-10-04] MEDS: COD LIVER OIL/ZINC OXIDE OINT 113 GM TUBE TOP SCH ×2 (08:29→21:48)
[2019-10-04] MEDS: HYDROGEN PEROXIDE 3% 118 ML BOTTLE TP SCH ×2 (09:00→21:36)
[2019-10-04 20:00] VITALS: BP 100/66
--- NOTE | 2019-10-04 20:35 | NUR ---
PT RECEIVED ON CONTINUOUS VENT, TRACH CARE DONE. TRACH IN PLACED AND SECURED WITH TRACH TIE. BACK UP TRACH AND AMBU BAG AT BEDSIDE. NO DISTRESS NOTED AT THIS TIME . SUCTION PRN. VENT ALARMS AUDIBLE, CHECKED AND RESET. WILL CONTINUE TO MONITOR.
[2019-10-04] MEDS: ATORVASTATIN 10 MG TABLET GT SCH (21:47)
[2019-10-04] MEDS: FERROUS SULFATE 330 MG/7.5 ML UDC- FOR SA ONLY GT SCH (21:47)
[2019-10-05] MEDS: GLUCERNA 1.2 1000ML LIQUID GT PRN (01:00)
[2019-10-05] MEDS: SODIUM CHLORIDE 5% OPHT OINT 3.5 GM TUBE RIGHTEYE SCH ×6 (01:22→21:51)
[2019-10-05] MEDS: POLYVINYL ALCOHOL OPHT DROPS 15 ML BOTTLE EACHEYE SCH ×6 (03:49→20:00)
[2019-10-05] MEDS: PANTOPRAZOLE ORAL SUSPENSION 40 MG SUSPDR.PKT GT SCH (05:46)
[2019-10-05] MEDS: LEVOTHYROXINE SODIUM 50 MCG TABLET GT SCH (05:46)
[2019-10-05] MEDS: INSULIN GLARGINE,HUM 300 UNITS/3 ML CARTRIDGE SQ SCH ×2 (05:47→18:01)
[2019-10-05] MEDS: BLOOD SUGAR DIAGNOSTIC 1 EACH STRIP VI SCH ×3 (05:47→22:19)
[2019-10-05] MEDS: INSULIN REGULAR, HUMAN 300 UNIT/3 ML VIAL SQ PRN ×3 (05:49→22:20)
[2019-10-05 08:03] VITALS: BP 115/72
[2019-10-05] MEDS: HYDROGEN PEROXIDE 3% 118 ML BOTTLE TP SCH ×2 (08:10→21:14)
[2019-10-05] MEDS: ACIDOPHILUS/BULGARICUS CHEW TAB GT SCH ×2 (08:51→21:51)
[2019-10-05] MEDS: DOCUSATE SODIUM 100 MG/10 ML LIQUID UDC GT SCH ×2 (08:51→21:51)
[2019-10-05] MEDS: POTASSIUM CHLORIDE 20 MEQ POWDER PACKET GT SCH (08:54)
[2019-10-05] MEDS: BISACODYL 10 MG SUPP.RECT RC SCH (08:54)
[2019-10-05] MEDS: COD LIVER OIL/ZINC OXIDE OINT 113 GM TUBE TOP SCH ×2 (08:55→21:51)
--- NOTE | 2019-10-05 15:00 | NUR ---
Accu check result 175. Insulin coverage given as ordered. See MAR.
[2019-10-05 20:00] VITALS: BP 112/69
[2019-10-05] MEDS: FERROUS SULFATE 330 MG/7.5 ML UDC- FOR SA ONLY GT SCH (21:51)
[2019-10-05] MEDS: ATORVASTATIN 10 MG TABLET GT SCH (21:51)
[2019-10-06] MEDS: POLYVINYL ALCOHOL OPHT DROPS 15 ML BOTTLE EACHEYE SCH ×6 (00:41→20:59)
[2019-10-06] MEDS: SODIUM CHLORIDE 5% OPHT OINT 3.5 GM TUBE RIGHTEYE SCH ×6 (00:42→21:00)
[2019-10-06] MEDS: GLUCERNA 1.2 1000ML LIQUID GT PRN ×2 (01:50→21:06)
[2019-10-06] MEDS: LEVOTHYROXINE SODIUM 50 MCG TABLET GT SCH (05:45)
[2019-10-06] MEDS: PANTOPRAZOLE ORAL SUSPENSION 40 MG SUSPDR.PKT GT SCH (05:45)
[2019-10-06] MEDS: INSULIN GLARGINE,HUM 300 UNITS/3 ML CARTRIDGE SQ SCH ×2 (05:45→17:55)
[2019-10-06] MEDS: BLOOD SUGAR DIAGNOSTIC 1 EACH STRIP VI SCH ×3 (05:46→21:05)
[2019-10-06] MEDS: INSULIN REGULAR, HUMAN 300 UNIT/3 ML VIAL SQ PRN ×3 (05:50→21:06)
[2019-10-06 07:49] VITALS: BP 113/67
[2019-10-06] MEDS: HYDROGEN PEROXIDE 3% 118 ML BOTTLE TP SCH ×2 (09:00→21:40)
[2019-10-06] MEDS: DOCUSATE SODIUM 100 MG/10 ML LIQUID UDC GT SCH ×2 (09:21→20:59)
[2019-10-06] MEDS: ACIDOPHILUS/BULGARICUS CHEW TAB GT SCH ×2 (09:21→20:59)
[2019-10-06] MEDS: POTASSIUM CHLORIDE 20 MEQ POWDER PACKET GT SCH (09:21)
[2019-10-06] MEDS: COD LIVER OIL/ZINC OXIDE OINT 113 GM TUBE TOP SCH ×2 (09:22→21:01)
[2019-10-06 20:00] VITALS: BP 115/66
[2019-10-06] MEDS: FERROUS SULFATE 330 MG/7.5 ML UDC- FOR SA ONLY GT SCH (20:59)
[2019-10-06] MEDS: ATORVASTATIN 10 MG TABLET GT SCH (21:00)
--- NOTE | 2019-10-06 23:30 | NUR ---
Received a call from the lab reporting about patient's COVID test result that is negative.
[2019-10-07] MEDS: SODIUM CHLORIDE 5% OPHT OINT 3.5 GM TUBE RIGHTEYE SCH ×6 (01:00→21:32)
[2019-10-07] MEDS: POLYVINYL ALCOHOL OPHT DROPS 15 ML BOTTLE EACHEYE SCH ×6 (04:00→20:00)
[2019-10-07] MEDS: PANTOPRAZOLE ORAL SUSPENSION 40 MG SUSPDR.PKT GT SCH (05:30)
[2019-10-07] MEDS: LEVOTHYROXINE SODIUM 50 MCG TABLET GT SCH (05:30)
[2019-10-07] MEDS: BLOOD SUGAR DIAGNOSTIC 1 EACH STRIP VI SCH ×3 (05:30→22:00)
[2019-10-07] MEDS: INSULIN GLARGINE,HUM 300 UNITS/3 ML CARTRIDGE SQ SCH ×2 (05:31→17:57)
[2019-10-07] MEDS: INSULIN REGULAR, HUMAN 300 UNIT/3 ML VIAL SQ PRN ×3 (05:33→22:02)
[2019-10-07 07:54] VITALS: BP 125/72
[2019-10-07] MEDS: POTASSIUM CHLORIDE 20 MEQ POWDER PACKET GT SCH (08:40)
[2019-10-07] MEDS: BISACODYL 10 MG SUPP.RECT RC SCH (08:40)
[2019-10-07] MEDS: ACIDOPHILUS/BULGARICUS CHEW TAB GT SCH ×2 (08:40→21:32)
[2019-10-07] MEDS: DOCUSATE SODIUM 100 MG/10 ML LIQUID UDC GT SCH ×2 (08:40→21:32)
[2019-10-07] MEDS: COD LIVER OIL/ZINC OXIDE OINT 113 GM TUBE TOP SCH ×2 (08:40→21:33)
[2019-10-07] MEDS: HYDROGEN PEROXIDE 3% 118 ML BOTTLE TP SCH ×2 (09:00→21:23)
[2019-10-07 20:02] VITALS: BP 107/72
[2019-10-07] MEDS: ATORVASTATIN 10 MG TABLET GT SCH (21:32)
[2019-10-07] MEDS: FERROUS SULFATE 330 MG/7.5 ML UDC- FOR SA ONLY GT SCH (21:32)
[2019-10-07] MEDS: GLUCERNA 1.2 1000ML LIQUID GT PRN (23:21)
[2019-10-08] MEDS: SODIUM CHLORIDE 5% OPHT OINT 3.5 GM TUBE RIGHTEYE SCH ×6 (01:52→21:12)
[2019-10-08] MEDS: POLYVINYL ALCOHOL OPHT DROPS 15 ML BOTTLE EACHEYE SCH ×6 (04:14→20:00)
[2019-10-08] MEDS: BLOOD SUGAR DIAGNOSTIC 1 EACH STRIP VI SCH ×3 (05:11→21:19)
[2019-10-08] MEDS: PANTOPRAZOLE ORAL SUSPENSION 40 MG SUSPDR.PKT GT SCH (05:11)
[2019-10-08] MEDS: LEVOTHYROXINE SODIUM 50 MCG TABLET GT SCH (05:11)
[2019-10-08] MEDS: INSULIN GLARGINE,HUM 300 UNITS/3 ML CARTRIDGE SQ SCH ×2 (06:00→18:22)
[2019-10-08] MEDS: INSULIN REGULAR, HUMAN 300 UNIT/3 ML VIAL SQ PRN ×3 (06:00→21:26)
[2019-10-08 07:53] VITALS: BP 114/65
[2019-10-08] MEDS: HYDROGEN PEROXIDE 3% 118 ML BOTTLE TP SCH ×2 (08:45→21:34)
[2019-10-08] MEDS: DOCUSATE SODIUM 100 MG/10 ML LIQUID UDC GT SCH ×2 (09:27→21:11)
[2019-10-08] MEDS: ACIDOPHILUS/BULGARICUS CHEW TAB GT SCH ×2 (09:27→21:12)
[2019-10-08] MEDS: POTASSIUM CHLORIDE 20 MEQ POWDER PACKET GT SCH (09:27)
[2019-10-08] MEDS: COD LIVER OIL/ZINC OXIDE OINT 113 GM TUBE TOP SCH ×2 (09:28→21:12)
[2019-10-08] MEDS: FERROUS SULFATE 330 MG/7.5 ML UDC- FOR SA ONLY GT SCH (21:11)
[2019-10-08] MEDS: ATORVASTATIN 10 MG TABLET GT SCH (21:12)
[2019-10-08 21:24] VITALS: BP 139/89
[2019-10-09] MEDS: POLYVINYL ALCOHOL OPHT DROPS 15 ML BOTTLE EACHEYE SCH ×6 (00:27→20:50)
[2019-10-09] MEDS: GLUCERNA 1.2 1000ML LIQUID GT PRN (00:27)
[2019-10-09] MEDS: SODIUM CHLORIDE 5% OPHT OINT 3.5 GM TUBE RIGHTEYE SCH ×6 (01:12→20:52)
[2019-10-09] MEDS: LEVOTHYROXINE SODIUM 50 MCG TABLET GT SCH (05:28)
[2019-10-09] MEDS: PANTOPRAZOLE ORAL SUSPENSION 40 MG SUSPDR.PKT GT SCH (05:28)
[2019-10-09] MEDS: BLOOD SUGAR DIAGNOSTIC 1 EACH STRIP VI SCH ×3 (05:29→21:51)
[2019-10-09] MEDS: INSULIN REGULAR, HUMAN 300 UNIT/3 ML VIAL SQ PRN ×3 (05:30→21:52)
[2019-10-09] MEDS: INSULIN GLARGINE,HUM 300 UNITS/3 ML CARTRIDGE SQ SCH ×2 (05:37→17:27)
[2019-10-09 07:50] VITALS: BP 120/69
[2019-10-09] MEDS: DOCUSATE SODIUM 100 MG/10 ML LIQUID UDC GT SCH ×2 (09:04→20:50)
[2019-10-09] MEDS: ACIDOPHILUS/BULGARICUS CHEW TAB GT SCH ×2 (09:04→20:51)
[2019-10-09] MEDS: POTASSIUM CHLORIDE 20 MEQ POWDER PACKET GT SCH (09:04)
[2019-10-09] MEDS: COD LIVER OIL/ZINC OXIDE OINT 113 GM TUBE TOP SCH ×2 (09:04→20:52)
[2019-10-09] MEDS: BISACODYL 10 MG SUPP.RECT RC SCH (09:04)
[2019-10-09] MEDS: HYDROGEN PEROXIDE 3% 118 ML BOTTLE TP SCH ×2 (09:37→21:33)
--- NOTE | 2019-10-09 12:00 | NUR ---
SEEN BY ANAID JOSEPH WITH NNO.
[2019-10-09 20:19] VITALS: BP 120/77
--- NOTE | 2019-10-09 20:25 | NUR ---
PT RECEIVED ON CONTINUOUS VENT, TRACH CARE DONE. TRACH IN PLACED AND SECURED WITH TRACH TIE. BACK UP TRACH AND AMBU BAG AT BEDSIDE. NO DISTRESS NOTED AT THIS TIME . SUCTION PRN. VENT CIRCUIT CHANGED. VENT ALARMS AUDIBLE, CHECKED AND RESET. WILL CONTINUE TO MONITOR.
[2019-10-09] MEDS: FERROUS SULFATE 330 MG/7.5 ML UDC- FOR SA ONLY GT SCH (20:50)
[2019-10-09] MEDS: ATORVASTATIN 10 MG TABLET GT SCH (20:52)
[2019-10-10] MEDS: POLYVINYL ALCOHOL OPHT DROPS 15 ML BOTTLE EACHEYE SCH ×7 (00:41→23:12)
[2019-10-10] MEDS: GLUCERNA 1.2 1000ML LIQUID GT PRN ×2 (00:56→22:50)
[2019-10-10] MEDS: SODIUM CHLORIDE 5% OPHT OINT 3.5 GM TUBE RIGHTEYE SCH ×6 (01:00→21:00)
[2019-10-10] MEDS: LEVOTHYROXINE SODIUM 50 MCG TABLET GT SCH (05:14)
[2019-10-10] MEDS: PANTOPRAZOLE ORAL SUSPENSION 40 MG SUSPDR.PKT GT SCH (05:14)
[2019-10-10] MEDS: BLOOD SUGAR DIAGNOSTIC 1 EACH STRIP VI SCH ×3 (05:15→22:15)
[2019-10-10] MEDS: INSULIN REGULAR, HUMAN 300 UNIT/3 ML VIAL SQ PRN ×3 (05:47→22:16)
[2019-10-10] MEDS: INSULIN GLARGINE,HUM 300 UNITS/3 ML CARTRIDGE SQ SCH ×2 (05:48→17:16)
[2019-10-10 07:42] VITALS: BP 107/63
[2019-10-10] MEDS: HYDROGEN PEROXIDE 3% 118 ML BOTTLE TP SCH ×2 (09:00→21:18)
[2019-10-10] MEDS: ACIDOPHILUS/BULGARICUS CHEW TAB GT SCH ×2 (09:20→21:00)
[2019-10-10] MEDS: POTASSIUM CHLORIDE 20 MEQ POWDER PACKET GT SCH (09:20)
[2019-10-10] MEDS: DOCUSATE SODIUM 100 MG/10 ML LIQUID UDC GT SCH ×2 (09:20→21:00)
[2019-10-10] MEDS: COD LIVER OIL/ZINC OXIDE OINT 113 GM TUBE TOP SCH ×2 (09:20→21:00)
[2019-10-10 20:03] VITALS: BP 125/76
[2019-10-10] MEDS: ATORVASTATIN 10 MG TABLET GT SCH (21:00)
[2019-10-10] MEDS: FERROUS SULFATE 330 MG/7.5 ML UDC- FOR SA ONLY GT SCH (21:00)
[2019-10-11] MEDS: SODIUM CHLORIDE 5% OPHT OINT 3.5 GM TUBE RIGHTEYE SCH ×6 (01:00→21:30)
[2019-10-11] MEDS: POLYVINYL ALCOHOL OPHT DROPS 15 ML BOTTLE EACHEYE SCH ×5 (04:00→20:00)
[2019-10-11] MEDS: LEVOTHYROXINE SODIUM 50 MCG TABLET GT SCH (06:09)
[2019-10-11] MEDS: PANTOPRAZOLE ORAL SUSPENSION 40 MG SUSPDR.PKT GT SCH (06:09)
[2019-10-11] MEDS: INSULIN GLARGINE,HUM 300 UNITS/3 ML CARTRIDGE SQ SCH ×2 (06:10→17:07)
[2019-10-11] MEDS: BLOOD SUGAR DIAGNOSTIC 1 EACH STRIP VI SCH ×3 (06:10→22:15)
[2019-10-11] MEDS: INSULIN REGULAR, HUMAN 300 UNIT/3 ML VIAL SQ PRN ×3 (06:12→22:17)
[2019-10-11 07:37] VITALS: BP 122/69
[2019-10-11] MEDS: BISACODYL 10 MG SUPP.RECT RC SCH (08:44)
[2019-10-11] MEDS: ACIDOPHILUS/BULGARICUS CHEW TAB GT SCH ×2 (08:44→21:29)
[2019-10-11] MEDS: DOCUSATE SODIUM 100 MG/10 ML LIQUID UDC GT SCH ×2 (08:44→21:29)
[2019-10-11] MEDS: POTASSIUM CHLORIDE 20 MEQ POWDER PACKET GT SCH (08:44)
[2019-10-11] MEDS: COD LIVER OIL/ZINC OXIDE OINT 113 GM TUBE TOP SCH ×2 (08:45→21:30)
[2019-10-11] MEDS: HYDROGEN PEROXIDE 3% 118 ML BOTTLE TP SCH ×2 (08:55→21:55)
[2019-10-11 20:13] VITALS: BP 139/68
[2019-10-11] MEDS: ATORVASTATIN 10 MG TABLET GT SCH (21:29)
[2019-10-11] MEDS: FERROUS SULFATE 330 MG/7.5 ML UDC- FOR SA ONLY GT SCH (21:29)
[2019-10-12] MEDS: POLYVINYL ALCOHOL OPHT DROPS 15 ML BOTTLE EACHEYE SCH ×6 (00:29→20:17)
[2019-10-12] MEDS: SODIUM CHLORIDE 5% OPHT OINT 3.5 GM TUBE RIGHTEYE SCH ×6 (00:29→21:44)
[2019-10-12] MEDS: LEVOTHYROXINE SODIUM 50 MCG TABLET GT SCH (05:14)
[2019-10-12] MEDS: PANTOPRAZOLE ORAL SUSPENSION 40 MG SUSPDR.PKT GT SCH (05:14)
[2019-10-12] MEDS: INSULIN GLARGINE,HUM 300 UNITS/3 ML CARTRIDGE SQ SCH ×2 (05:15→17:59)
[2019-10-12] MEDS: BLOOD SUGAR DIAGNOSTIC 1 EACH STRIP VI SCH ×3 (05:16→21:51)
[2019-10-12] MEDS: INSULIN REGULAR, HUMAN 300 UNIT/3 ML VIAL SQ PRN ×3 (05:17→21:56)
[2019-10-12 07:42] VITALS: BP 127/80
[2019-10-12] MEDS: HYDROGEN PEROXIDE 3% 118 ML BOTTLE TP SCH ×2 (08:20→21:36)
[2019-10-12] MEDS: ACIDOPHILUS/BULGARICUS CHEW TAB GT SCH ×2 (08:27→21:44)
[2019-10-12] MEDS: DOCUSATE SODIUM 100 MG/10 ML LIQUID UDC GT SCH ×2 (08:27→21:44)
[2019-10-12] MEDS: POTASSIUM CHLORIDE 20 MEQ POWDER PACKET GT SCH (08:28)
[2019-10-12] MEDS: COD LIVER OIL/ZINC OXIDE OINT 113 GM TUBE TOP SCH ×2 (08:30→21:44)
[2019-10-12] MEDS: GLUCERNA 1.2 1000ML LIQUID GT PRN (13:25)
[2019-10-12 20:48] VITALS: BP 147/81
[2019-10-12] MEDS: ATORVASTATIN 10 MG TABLET GT SCH (21:44)
[2019-10-12] MEDS: FERROUS SULFATE 330 MG/7.5 ML UDC- FOR SA ONLY GT SCH (21:44)
[2019-10-13] MEDS: SODIUM CHLORIDE 5% OPHT OINT 3.5 GM TUBE RIGHTEYE SCH ×6 (00:01→21:33)
[2019-10-13] MEDS: POLYVINYL ALCOHOL OPHT DROPS 15 ML BOTTLE EACHEYE SCH ×6 (00:01→20:00)
[2019-10-13] MEDS: BLOOD SUGAR DIAGNOSTIC 1 EACH STRIP VI SCH ×3 (05:20→21:33)
[2019-10-13] MEDS: LEVOTHYROXINE SODIUM 50 MCG TABLET GT SCH (05:20)
[2019-10-13] MEDS: PANTOPRAZOLE ORAL SUSPENSION 40 MG SUSPDR.PKT GT SCH (05:20)
[2019-10-13] MEDS: INSULIN REGULAR, HUMAN 300 UNIT/3 ML VIAL SQ PRN ×3 (05:26→21:35)
[2019-10-13] MEDS: INSULIN GLARGINE,HUM 300 UNITS/3 ML CARTRIDGE SQ SCH ×2 (05:26→17:40)
[2019-10-13 07:44] VITALS: BP 99/56
[2019-10-13] MEDS: ACIDOPHILUS/BULGARICUS CHEW TAB GT SCH ×2 (08:46→21:32)
[2019-10-13] MEDS: DOCUSATE SODIUM 100 MG/10 ML LIQUID UDC GT SCH ×2 (08:46→21:31)
[2019-10-13] MEDS: POTASSIUM CHLORIDE 20 MEQ POWDER PACKET GT SCH (08:47)
[2019-10-13] MEDS: COD LIVER OIL/ZINC OXIDE OINT 113 GM TUBE TOP SCH ×2 (08:48→21:33)
[2019-10-13] MEDS: BISACODYL 10 MG SUPP.RECT RC SCH (08:48)
[2019-10-13] MEDS: GLUCERNA 1.2 1000ML LIQUID GT PRN (08:50)
[2019-10-13] MEDS: HYDROGEN PEROXIDE 3% 118 ML BOTTLE TP SCH ×2 (09:00→21:25)
[2019-10-13 20:13] VITALS: BP 117/73
[2019-10-13] MEDS: FERROUS SULFATE 330 MG/7.5 ML UDC- FOR SA ONLY GT SCH (21:31)
[2019-10-13] MEDS: ATORVASTATIN 10 MG TABLET GT SCH (21:33)
[2019-10-13] MEDS: COD LIVER OIL/ZINC OXIDE OINT 113 GM TUBE TOP PRN (21:35)
[2019-10-14] MEDS: SODIUM CHLORIDE 5% OPHT OINT 3.5 GM TUBE RIGHTEYE SCH ×6 (01:33→21:25)
[2019-10-14] MEDS: GLUCERNA 1.2 1000ML LIQUID GT PRN (02:22)
[2019-10-14] MEDS: POLYVINYL ALCOHOL OPHT DROPS 15 ML BOTTLE EACHEYE SCH ×6 (04:00→20:49)
[2019-10-14] MEDS: LEVOTHYROXINE SODIUM 50 MCG TABLET GT SCH (05:39)
[2019-10-14] MEDS: BLOOD SUGAR DIAGNOSTIC 1 EACH STRIP VI SCH ×3 (05:39→22:12)
[2019-10-14] MEDS: PANTOPRAZOLE ORAL SUSPENSION 40 MG SUSPDR.PKT GT SCH (05:39)
[2019-10-14] MEDS: INSULIN REGULAR, HUMAN 300 UNIT/3 ML VIAL SQ PRN ×3 (05:47→22:15)
[2019-10-14] MEDS: INSULIN GLARGINE,HUM 300 UNITS/3 ML CARTRIDGE SQ SCH ×2 (05:47→17:02)
[2019-10-14 07:42] VITALS: BP 121/79
[2019-10-14] MEDS: POTASSIUM CHLORIDE 20 MEQ POWDER PACKET GT SCH (08:24)
[2019-10-14] MEDS: DOCUSATE SODIUM 100 MG/10 ML LIQUID UDC GT SCH ×2 (08:24→21:24)
[2019-10-14] MEDS: ACIDOPHILUS/BULGARICUS CHEW TAB GT SCH ×2 (08:24→21:24)
[2019-10-14] MEDS: COD LIVER OIL/ZINC OXIDE OINT 113 GM TUBE TOP SCH ×2 (08:24→21:25)
[2019-10-14] MEDS: HYDROGEN PEROXIDE 3% 118 ML BOTTLE TP SCH ×2 (08:57→18:54)
[2019-10-14 20:19] VITALS: BP 139/73
[2019-10-14] MEDS: ATORVASTATIN 10 MG TABLET GT SCH (21:24)
[2019-10-14] MEDS: FERROUS SULFATE 330 MG/7.5 ML UDC- FOR SA ONLY GT SCH (21:24)
[2019-10-15] MEDS: POLYVINYL ALCOHOL OPHT DROPS 15 ML BOTTLE EACHEYE SCH ×6 (00:28→20:00)
[2019-10-15] MEDS: SODIUM CHLORIDE 5% OPHT OINT 3.5 GM TUBE RIGHTEYE SCH ×6 (01:14→22:00)
[2019-10-15] MEDS: PANTOPRAZOLE ORAL SUSPENSION 40 MG SUSPDR.PKT GT SCH (05:28)
[2019-10-15] MEDS: LEVOTHYROXINE SODIUM 50 MCG TABLET GT SCH (05:28)
[2019-10-15] MEDS: INSULIN GLARGINE,HUM 300 UNITS/3 ML CARTRIDGE SQ SCH ×2 (05:30→17:10)
[2019-10-15] MEDS: INSULIN REGULAR, HUMAN 300 UNIT/3 ML VIAL SQ PRN ×3 (05:31→22:54)
[2019-10-15] MEDS: BLOOD SUGAR DIAGNOSTIC 1 EACH STRIP VI SCH ×3 (05:43→22:17)
[2019-10-15] MEDS: GLUCERNA 1.2 1000ML LIQUID GT PRN (06:53)
[2019-10-15 07:28] VITALS: BP 104/74
[2019-10-15] MEDS: HYDROGEN PEROXIDE 3% 118 ML BOTTLE TP SCH ×2 (07:30→21:23)
[2019-10-15] MEDS: BISACODYL 10 MG SUPP.RECT RC SCH (08:21)
[2019-10-15] MEDS: DOCUSATE SODIUM 100 MG/10 ML LIQUID UDC GT SCH ×2 (08:21→21:59)
[2019-10-15] MEDS: ACIDOPHILUS/BULGARICUS CHEW TAB GT SCH ×2 (08:21→21:59)
[2019-10-15] MEDS: POTASSIUM CHLORIDE 20 MEQ POWDER PACKET GT SCH (08:21)
[2019-10-15] MEDS: COD LIVER OIL/ZINC OXIDE OINT 113 GM TUBE TOP SCH ×2 (08:22→21:00)
[2019-10-15 20:17] VITALS: BP 138/79
[2019-10-15] MEDS: ATORVASTATIN 10 MG TABLET GT SCH (21:59)
[2019-10-15] MEDS: FERROUS SULFATE 330 MG/7.5 ML UDC- FOR SA ONLY GT SCH (21:59)
[2019-10-16] MEDS: POLYVINYL ALCOHOL OPHT DROPS 15 ML BOTTLE EACHEYE SCH ×6 (00:36→20:11)
[2019-10-16] MEDS: SODIUM CHLORIDE 5% OPHT OINT 3.5 GM TUBE RIGHTEYE SCH ×6 (01:24→20:11)
[2019-10-16] MEDS: LEVOTHYROXINE SODIUM 50 MCG TABLET GT SCH (05:37)
[2019-10-16] MEDS: PANTOPRAZOLE ORAL SUSPENSION 40 MG SUSPDR.PKT GT SCH (05:37)
[2019-10-16] MEDS: INSULIN GLARGINE,HUM 300 UNITS/3 ML CARTRIDGE SQ SCH ×2 (05:38→17:13)
[2019-10-16] MEDS: INSULIN REGULAR, HUMAN 300 UNIT/3 ML VIAL SQ PRN ×3 (05:40→22:25)
[2019-10-16] MEDS: BLOOD SUGAR DIAGNOSTIC 1 EACH STRIP VI SCH ×3 (05:42→22:23)
[2019-10-16 07:33] VITALS: BP 104/58
[2019-10-16] MEDS: POTASSIUM CHLORIDE 20 MEQ POWDER PACKET GT SCH (08:07)
[2019-10-16] MEDS: DOCUSATE SODIUM 100 MG/10 ML LIQUID UDC GT SCH ×2 (08:07→20:11)
[2019-10-16] MEDS: COD LIVER OIL/ZINC OXIDE OINT 113 GM TUBE TOP SCH ×2 (08:07→20:12)
[2019-10-16] MEDS: ACIDOPHILUS/BULGARICUS CHEW TAB GT SCH ×2 (08:07→20:11)
[2019-10-16] MEDS: HYDROGEN PEROXIDE 3% 118 ML BOTTLE TP SCH ×2 (09:33→21:22)
[2019-10-16] MEDS: ATORVASTATIN 10 MG TABLET GT SCH (20:11)
[2019-10-16] MEDS: FERROUS SULFATE 330 MG/7.5 ML UDC- FOR SA ONLY GT SCH (20:11)
[2019-10-16 20:24] VITALS: BP 126/78
[2019-10-17] MEDS: POLYVINYL ALCOHOL OPHT DROPS 15 ML BOTTLE EACHEYE SCH ×7 (00:56→23:29)
[2019-10-17] MEDS: SODIUM CHLORIDE 5% OPHT OINT 3.5 GM TUBE RIGHTEYE SCH ×6 (01:45→20:25)
[2019-10-17] MEDS: GLUCERNA 1.2 1000ML LIQUID GT PRN (01:45)
[2019-10-17] MEDS: PANTOPRAZOLE ORAL SUSPENSION 40 MG SUSPDR.PKT GT SCH (05:32)
[2019-10-17] MEDS: LEVOTHYROXINE SODIUM 50 MCG TABLET GT SCH (05:32)
[2019-10-17] MEDS: INSULIN GLARGINE,HUM 300 UNITS/3 ML CARTRIDGE SQ SCH ×2 (05:33→18:06)
[2019-10-17] MEDS: BLOOD SUGAR DIAGNOSTIC 1 EACH STRIP VI SCH ×3 (05:34→22:16)
[2019-10-17] MEDS: HYDROGEN PEROXIDE 3% 118 ML BOTTLE TP SCH ×2 (07:09→20:51)
[2019-10-17 07:40] VITALS: BP 115/61
[2019-10-17] MEDS: DOCUSATE SODIUM 100 MG/10 ML LIQUID UDC GT SCH ×2 (08:34→20:21)
[2019-10-17] MEDS: ACIDOPHILUS/BULGARICUS CHEW TAB GT SCH ×2 (08:35→20:22)
[2019-10-17] MEDS: POTASSIUM CHLORIDE 20 MEQ POWDER PACKET GT SCH (08:44)
[2019-10-17] MEDS: BISACODYL 10 MG SUPP.RECT RC SCH (08:46)
[2019-10-17] MEDS: COD LIVER OIL/ZINC OXIDE OINT 113 GM TUBE TOP SCH ×2 (08:47→20:25)
[2019-10-17] MEDS: INSULIN REGULAR, HUMAN 300 UNIT/3 ML VIAL SQ PRN ×2 (16:41→22:19)
[2019-10-17 19:55] VITALS: BP 130/82
[2019-10-17] MEDS: FERROUS SULFATE 330 MG/7.5 ML UDC- FOR SA ONLY GT SCH (20:21)
[2019-10-17] MEDS: ATORVASTATIN 10 MG TABLET GT SCH (20:23)
[2019-10-18] MEDS: SODIUM CHLORIDE 5% OPHT OINT 3.5 GM TUBE RIGHTEYE SCH ×6 (01:00→20:47)
[2019-10-18] MEDS: GLUCERNA 1.2 1000ML LIQUID GT PRN (02:11)
[2019-10-18] MEDS: POLYVINYL ALCOHOL OPHT DROPS 15 ML BOTTLE EACHEYE SCH ×6 (04:34→23:24)
[2019-10-18] MEDS: PANTOPRAZOLE ORAL SUSPENSION 40 MG SUSPDR.PKT GT SCH (05:39)
[2019-10-18] MEDS: LEVOTHYROXINE SODIUM 50 MCG TABLET GT SCH (05:39)
[2019-10-18] MEDS: BLOOD SUGAR DIAGNOSTIC 1 EACH STRIP VI SCH ×3 (05:40→22:19)
[2019-10-18] MEDS: INSULIN GLARGINE,HUM 300 UNITS/3 ML CARTRIDGE SQ SCH ×2 (05:40→17:58)
[2019-10-18] MEDS: HYDROGEN PEROXIDE 3% 118 ML BOTTLE TP SCH ×2 (07:19→18:47)
[2019-10-18 08:12] VITALS: BP 95/66
[2019-10-18] MEDS: DOCUSATE SODIUM 100 MG/10 ML LIQUID UDC GT SCH ×2 (08:31→20:47)
[2019-10-18] MEDS: ACIDOPHILUS/BULGARICUS CHEW TAB GT SCH ×2 (08:33→20:47)
[2019-10-18] MEDS: POTASSIUM CHLORIDE 20 MEQ POWDER PACKET GT SCH (08:35)
[2019-10-18] MEDS: COD LIVER OIL/ZINC OXIDE OINT 113 GM TUBE TOP SCH ×2 (08:36→20:48)
[2019-10-18] MEDS: INSULIN REGULAR, HUMAN 300 UNIT/3 ML VIAL SQ PRN ×2 (14:29→22:23)
--- NOTE | 2019-10-18 18:24 | NUR ---
No significant acute changes during this shift. All due medications given as ordered and tolerated well. No s/sx of respiratory distress. Skin care rendered. No new skin condition noted. No s/sx of hypo/hyperglycemia. Tolerating GT feeding well. F/C patent and intact. Safety measures in place. Will endorse to oncoming shift accordingly. Addendum: 10/18/19 at 1832 by MOSHE AGEE RN Correction of charting: Pt. has supra pubic catheter.
[2019-10-18 20:00] VITALS: BP 140/75
[2019-10-18] MEDS: ATORVASTATIN 10 MG TABLET GT SCH (20:47)
[2019-10-18] MEDS: FERROUS SULFATE 330 MG/7.5 ML UDC- FOR SA ONLY GT SCH (20:47)
[2019-10-19] MEDS: SODIUM CHLORIDE 5% OPHT OINT 3.5 GM TUBE RIGHTEYE SCH ×6 (01:00→21:05)
[2019-10-19] MEDS: GLUCERNA 1.2 1000ML LIQUID GT PRN ×2 (03:58→21:30)
[2019-10-19] MEDS: POLYVINYL ALCOHOL OPHT DROPS 15 ML BOTTLE EACHEYE SCH ×6 (04:27→23:03)
[2019-10-19] MEDS: PANTOPRAZOLE ORAL SUSPENSION 40 MG SUSPDR.PKT GT SCH (06:13)
[2019-10-19] MEDS: LEVOTHYROXINE SODIUM 50 MCG TABLET GT SCH (06:13)
[2019-10-19] MEDS: INSULIN GLARGINE,HUM 300 UNITS/3 ML CARTRIDGE SQ SCH ×2 (06:14→17:18)
[2019-10-19] MEDS: BLOOD SUGAR DIAGNOSTIC 1 EACH STRIP VI SCH ×3 (06:14→21:05)
[2019-10-19] MEDS: INSULIN REGULAR, HUMAN 300 UNIT/3 ML VIAL SQ PRN ×3 (06:15→21:07)
[2019-10-19] MEDS: BISACODYL 10 MG SUPP.RECT RC SCH (08:06)
[2019-10-19] MEDS: DOCUSATE SODIUM 100 MG/10 ML LIQUID UDC GT SCH ×2 (08:06→20:55)
[2019-10-19] MEDS: POTASSIUM CHLORIDE 20 MEQ POWDER PACKET GT SCH (08:06)
[2019-10-19] MEDS: ACIDOPHILUS/BULGARICUS CHEW TAB GT SCH ×2 (08:06→20:55)
[2019-10-19] MEDS: COD LIVER OIL/ZINC OXIDE OINT 113 GM TUBE TOP SCH ×2 (08:06→20:55)
[2019-10-19] MEDS: HYDROGEN PEROXIDE 3% 118 ML BOTTLE TP SCH ×2 (08:09→21:33)
[2019-10-19 08:11] VITALS: BP 115/72
[2019-10-19 20:16] VITALS: BP 142/84
[2019-10-19] MEDS: FERROUS SULFATE 330 MG/7.5 ML UDC- FOR SA ONLY GT SCH (20:55)
[2019-10-19] MEDS: ATORVASTATIN 10 MG TABLET GT SCH (20:55)
[2019-10-20] MEDS: SODIUM CHLORIDE 5% OPHT OINT 3.5 GM TUBE RIGHTEYE SCH ×6 (01:04→21:02)
[2019-10-20] MEDS: POLYVINYL ALCOHOL OPHT DROPS 15 ML BOTTLE EACHEYE SCH ×6 (04:01→23:10)
[2019-10-20] MEDS: PANTOPRAZOLE ORAL SUSPENSION 40 MG SUSPDR.PKT GT SCH (05:30)
[2019-10-20] MEDS: INSULIN GLARGINE,HUM 300 UNITS/3 ML CARTRIDGE SQ SCH ×2 (05:30→17:13)
[2019-10-20] MEDS: LEVOTHYROXINE SODIUM 50 MCG TABLET GT SCH (05:30)
[2019-10-20] MEDS: BLOOD SUGAR DIAGNOSTIC 1 EACH STRIP VI SCH ×3 (05:31→21:02)
[2019-10-20] MEDS: INSULIN REGULAR, HUMAN 300 UNIT/3 ML VIAL SQ PRN ×3 (05:32→21:02)
[2019-10-20 07:53] VITALS: BP 125/76
[2019-10-20] MEDS: HYDROGEN PEROXIDE 3% 118 ML BOTTLE TP SCH ×2 (08:09→21:12)
[2019-10-20] MEDS: DOCUSATE SODIUM 100 MG/10 ML LIQUID UDC GT SCH ×2 (08:33→21:02)
[2019-10-20] MEDS: ACIDOPHILUS/BULGARICUS CHEW TAB GT SCH ×2 (08:33→21:02)
[2019-10-20] MEDS: POTASSIUM CHLORIDE 20 MEQ POWDER PACKET GT SCH (08:33)
[2019-10-20] MEDS: COD LIVER OIL/ZINC OXIDE OINT 113 GM TUBE TOP SCH ×2 (08:33→21:02)
[2019-10-20 20:06] VITALS: BP 137/78
[2019-10-20] MEDS: FERROUS SULFATE 330 MG/7.5 ML UDC- FOR SA ONLY GT SCH (21:02)
[2019-10-20] MEDS: ATORVASTATIN 10 MG TABLET GT SCH (21:02)
[2019-10-20] MEDS: GLUCERNA 1.2 1000ML LIQUID GT PRN (22:55)
[2019-10-21] MEDS: SODIUM CHLORIDE 5% OPHT OINT 3.5 GM TUBE RIGHTEYE SCH ×6 (00:16→21:07)
[2019-10-21] MEDS: POLYVINYL ALCOHOL OPHT DROPS 15 ML BOTTLE EACHEYE SCH ×6 (04:23→23:18)
[2019-10-21] MEDS: BLOOD SUGAR DIAGNOSTIC 1 EACH STRIP VI SCH ×3 (05:19→21:07)
[2019-10-21] MEDS: PANTOPRAZOLE ORAL SUSPENSION 40 MG SUSPDR.PKT GT SCH (05:19)
[2019-10-21] MEDS: LEVOTHYROXINE SODIUM 50 MCG TABLET GT SCH (05:19)
[2019-10-21] MEDS: INSULIN REGULAR, HUMAN 300 UNIT/3 ML VIAL SQ PRN ×3 (05:20→21:08)
[2019-10-21] MEDS: INSULIN GLARGINE,HUM 300 UNITS/3 ML CARTRIDGE SQ SCH ×2 (05:21→17:09)
[2019-10-21] MEDS: HYDROGEN PEROXIDE 3% 118 ML BOTTLE TP SCH ×2 (07:07→21:32)
[2019-10-21 07:52] VITALS: BP 104/64
[2019-10-21] MEDS: ACIDOPHILUS/BULGARICUS CHEW TAB GT SCH ×2 (08:36→20:55)
[2019-10-21] MEDS: POTASSIUM CHLORIDE 20 MEQ POWDER PACKET GT SCH (08:36)
[2019-10-21] MEDS: COD LIVER OIL/ZINC OXIDE OINT 113 GM TUBE TOP SCH ×2 (08:36→20:55)
[2019-10-21] MEDS: DOCUSATE SODIUM 100 MG/10 ML LIQUID UDC GT SCH ×2 (08:36→20:55)
[2019-10-21] MEDS: BISACODYL 10 MG SUPP.RECT RC SCH (08:36)
[2019-10-21 20:29] VITALS: BP 102/64
[2019-10-21] MEDS: ATORVASTATIN 10 MG TABLET GT SCH (20:55)
[2019-10-21] MEDS: FERROUS SULFATE 330 MG/7.5 ML UDC- FOR SA ONLY GT SCH (20:55)
[2019-10-22] MEDS: SODIUM CHLORIDE 5% OPHT OINT 3.5 GM TUBE RIGHTEYE SCH ×6 (00:25→21:47)
[2019-10-22] MEDS: POLYVINYL ALCOHOL OPHT DROPS 15 ML BOTTLE EACHEYE SCH ×6 (04:16→23:12)
[2019-10-22] MEDS: LEVOTHYROXINE SODIUM 50 MCG TABLET GT SCH (05:09)
[2019-10-22] MEDS: PANTOPRAZOLE ORAL SUSPENSION 40 MG SUSPDR.PKT GT SCH (05:09)
[2019-10-22] MEDS: BLOOD SUGAR DIAGNOSTIC 1 EACH STRIP VI SCH ×3 (05:09→22:29)
[2019-10-22] MEDS: INSULIN GLARGINE,HUM 300 UNITS/3 ML CARTRIDGE SQ SCH ×2 (05:11→17:37)
[2019-10-22] MEDS: INSULIN REGULAR, HUMAN 300 UNIT/3 ML VIAL SQ PRN ×3 (05:12→22:32)
[2019-10-22 07:25] VITALS: BP 104/58
[2019-10-22] MEDS: DOCUSATE SODIUM 100 MG/10 ML LIQUID UDC GT SCH ×2 (08:40→21:44)
[2019-10-22] MEDS: ACIDOPHILUS/BULGARICUS CHEW TAB GT SCH ×2 (08:41→21:44)
[2019-10-22] MEDS: POTASSIUM CHLORIDE 20 MEQ POWDER PACKET GT SCH (08:41)
[2019-10-22] MEDS: COD LIVER OIL/ZINC OXIDE OINT 113 GM TUBE TOP SCH ×2 (08:42→21:47)
[2019-10-22] MEDS: HYDROGEN PEROXIDE 3% 118 ML BOTTLE TP SCH ×2 (09:04→21:33)
--- NOTE | 2019-10-22 10:10 | NUR ---
PT. EXAMINED BY DR. PADGETT AND WITH NNO.
[2019-10-22] MEDS: GLUCERNA 1.2 1000ML LIQUID GT PRN (13:25)
[2019-10-22 20:16] VITALS: BP 109/60
[2019-10-22] MEDS: FERROUS SULFATE 330 MG/7.5 ML UDC- FOR SA ONLY GT SCH (21:44)
[2019-10-22] MEDS: ATORVASTATIN 10 MG TABLET GT SCH (21:47)
[2019-10-23] MEDS: SODIUM CHLORIDE 5% OPHT OINT 3.5 GM TUBE RIGHTEYE SCH ×6 (01:00→21:42)
[2019-10-23] MEDS: POLYVINYL ALCOHOL OPHT DROPS 15 ML BOTTLE EACHEYE SCH ×6 (03:13→23:09)
[2019-10-23] MEDS: PANTOPRAZOLE ORAL SUSPENSION 40 MG SUSPDR.PKT GT SCH (06:08)
[2019-10-23] MEDS: LEVOTHYROXINE SODIUM 50 MCG TABLET GT SCH (06:08)
[2019-10-23] MEDS: INSULIN GLARGINE,HUM 300 UNITS/3 ML CARTRIDGE SQ SCH ×2 (06:12→17:49)
[2019-10-23] MEDS: BLOOD SUGAR DIAGNOSTIC 1 EACH STRIP VI SCH ×3 (06:12→21:42)
[2019-10-23] MEDS: INSULIN REGULAR, HUMAN 300 UNIT/3 ML VIAL SQ PRN ×3 (06:13→21:45)
[2019-10-23 07:47] VITALS: BP 100/60
[2019-10-23 07:47] LABS: BASOPHILS % (AUTO) 0.2 % (0.0-2.0); BILIRUBIN,TOTAL 0.8 mg/dL (0.2-1.0); CREATININE 0.8 mg/dL (0.6-1.3); EOSINOPHILS # (AUTO) 0.2 K/uL (0.0-0.7); EOSINOPHILS % (AUTO) 3.6 % (0.0-7.0); HEMATOCRIT 34.3 % (36.7-47.1); HEMOGLOBIN 11.1 g/dL (12.5-16.3); LYMPHOCYTES # (AUTO) 0.7 K/uL (20.0-40.0); LYMPHOCYTES % (AUTO) 11.7 % (20.5-51.5); MEAN CORPUSCULAR HEMOGLOBIN 27.7 uug (23.8-33.4); MEAN CORPUSCULAR HGB CONC 32 g/dL (32.5-36.3); MEAN CORPUSCULAR VOLUME 85.6 fL (73.0-96.2); MONOCYTES # (AUTO) 0.6 K/uL (2.0-10.0); MONOCYTES % (AUTO) 9.3 % (0.0-11.0); NEUTROPHILS # (AUTO) 4.8 K/uL (1.8-8.9); NEUTROPHILS % (AUTO) 75.2 % (38.5-71.5); PLATELET COUNT (AUTO) 191 K/uL (152-348); POTASSIUM 3.8 mmol/L (3.5-5.1); RED BLOOD CELL COUNT(AUTO) 4.01 MIL/uL (4.06-5.63); TOTAL PROTEIN, SERUM 7.5 g/dL (6.4-8.2); WHITE BLOOD COUNT (AUTO) 6.4 K/uL (3.6-10.2)
[2019-10-23] MEDS: ACIDOPHILUS/BULGARICUS CHEW TAB GT SCH ×2 (08:20→21:40)
[2019-10-23] MEDS: DOCUSATE SODIUM 100 MG/10 ML LIQUID UDC GT SCH ×2 (08:20→21:38)
[2019-10-23] MEDS: BISACODYL 10 MG SUPP.RECT RC SCH (08:22)
[2019-10-23] MEDS: POTASSIUM CHLORIDE 20 MEQ POWDER PACKET GT SCH (08:22)
[2019-10-23] MEDS: COD LIVER OIL/ZINC OXIDE OINT 113 GM TUBE TOP SCH ×2 (08:23→21:42)
[2019-10-23] MEDS: HYDROGEN PEROXIDE 3% 118 ML BOTTLE TP SCH ×2 (09:18→21:01)
[2019-10-23] MEDS: GLUCERNA 1.2 1000ML LIQUID GT PRN (10:44)
[2019-10-23 20:29] VITALS: BP 101/62
[2019-10-23] MEDS: FERROUS SULFATE 330 MG/7.5 ML UDC- FOR SA ONLY GT SCH (21:40)
[2019-10-23] MEDS: ATORVASTATIN 10 MG TABLET GT SCH (21:40)
[2019-10-24] MEDS: SODIUM CHLORIDE 5% OPHT OINT 3.5 GM TUBE RIGHTEYE SCH ×6 (01:00→21:00)
[2019-10-24] MEDS: POLYVINYL ALCOHOL OPHT DROPS 15 ML BOTTLE EACHEYE SCH ×5 (04:00→20:00)
[2019-10-24] MEDS: INSULIN GLARGINE,HUM 300 UNITS/3 ML CARTRIDGE SQ SCH ×2 (06:02→18:50)
[2019-10-24] MEDS: LEVOTHYROXINE SODIUM 50 MCG TABLET GT SCH (06:02)
[2019-10-24] MEDS: PANTOPRAZOLE ORAL SUSPENSION 40 MG SUSPDR.PKT GT SCH (06:02)
[2019-10-24] MEDS: BLOOD SUGAR DIAGNOSTIC 1 EACH STRIP VI SCH ×3 (06:03→22:14)
[2019-10-24] MEDS: INSULIN REGULAR, HUMAN 300 UNIT/3 ML VIAL SQ PRN ×3 (06:07→22:15)
[2019-10-24 07:36] VITALS: BP 139/75
[2019-10-24] MEDS: DOCUSATE SODIUM 100 MG/10 ML LIQUID UDC GT SCH ×2 (08:59→21:00)
[2019-10-24] MEDS: ACIDOPHILUS/BULGARICUS CHEW TAB GT SCH ×2 (08:59→21:00)
[2019-10-24] MEDS: POTASSIUM CHLORIDE 20 MEQ POWDER PACKET GT SCH (09:02)
[2019-10-24] MEDS: COD LIVER OIL/ZINC OXIDE OINT 113 GM TUBE TOP SCH ×2 (09:03→21:00)
[2019-10-24] MEDS: HYDROGEN PEROXIDE 3% 118 ML BOTTLE TP SCH ×2 (09:09→21:51)
[2019-10-24] MEDS: GLUCERNA 1.2 1000ML LIQUID GT PRN (10:29)
--- NOTE | 2019-10-24 17:39 | NUR ---
Seen and examined by Dr Nolan,with new orders noted.
[2019-10-24 19:48] VITALS: BP 131/68
[2019-10-24] MEDS: ATORVASTATIN 10 MG TABLET GT SCH (21:00)
[2019-10-24] MEDS: FERROUS SULFATE 330 MG/7.5 ML UDC- FOR SA ONLY GT SCH (21:00)
[2019-10-25] MEDS: SODIUM CHLORIDE 5% OPHT OINT 3.5 GM TUBE RIGHTEYE SCH ×6 (01:53→21:00)
[2019-10-25] MEDS: GLUCERNA 1.2 1000ML LIQUID GT PRN (04:30)
[2019-10-25] MEDS: POLYVINYL ALCOHOL OPHT DROPS 15 ML BOTTLE EACHEYE SCH ×6 (04:34→20:00)
[2019-10-25] MEDS: PANTOPRAZOLE ORAL SUSPENSION 40 MG SUSPDR.PKT GT SCH (05:52)
[2019-10-25] MEDS: INSULIN GLARGINE,HUM 300 UNITS/3 ML CARTRIDGE SQ SCH ×2 (05:52→17:42)
[2019-10-25] MEDS: LEVOTHYROXINE SODIUM 50 MCG TABLET GT SCH (05:52)
[2019-10-25] MEDS: BLOOD SUGAR DIAGNOSTIC 1 EACH STRIP VI SCH ×3 (05:53→22:14)
[2019-10-25] MEDS: INSULIN REGULAR, HUMAN 300 UNIT/3 ML VIAL SQ PRN ×3 (05:54→22:15)
[2019-10-25 08:00] VITALS: BP 139/93
[2019-10-25] MEDS: DOCUSATE SODIUM 100 MG/10 ML LIQUID UDC GT SCH ×2 (08:39→21:54)
[2019-10-25] MEDS: ACIDOPHILUS/BULGARICUS CHEW TAB GT SCH ×2 (08:40→21:55)
[2019-10-25] MEDS: POTASSIUM CHLORIDE 20 MEQ POWDER PACKET GT SCH (08:41)
[2019-10-25] MEDS: BISACODYL 10 MG SUPP.RECT RC SCH (08:42)
[2019-10-25] MEDS: COD LIVER OIL/ZINC OXIDE OINT 113 GM TUBE TOP SCH ×2 (08:43→21:00)
[2019-10-25] MEDS: HYDROGEN PEROXIDE 3% 118 ML BOTTLE TP SCH ×2 (09:32→21:15)
--- NOTE | 2019-10-25 18:02 | NUR ---
Informed family member Mana, of COVID 19 possible exposure and testing plan with good understanding.
[2019-10-25 20:08] VITALS: BP 137/79
[2019-10-25] MEDS: FERROUS SULFATE 330 MG/7.5 ML UDC- FOR SA ONLY GT SCH (21:54)
[2019-10-25] MEDS: ATORVASTATIN 10 MG TABLET GT SCH (21:55)
[2019-10-26] MEDS: GLUCERNA 1.2 1000ML LIQUID GT PRN (01:00)
[2019-10-26] MEDS: SODIUM CHLORIDE 5% OPHT OINT 3.5 GM TUBE RIGHTEYE SCH ×6 (01:46→21:00)
--- NOTE | 2019-10-26 02:00 | NUR ---
New order for COVID-19 test per [facility] COVID-19 requirement.
[2019-10-26] MEDS: POLYVINYL ALCOHOL OPHT DROPS 15 ML BOTTLE EACHEYE SCH ×6 (04:48→20:23)
[2019-10-26] MEDS: LEVOTHYROXINE SODIUM 50 MCG TABLET GT SCH (05:10)
[2019-10-26] MEDS: PANTOPRAZOLE ORAL SUSPENSION 40 MG SUSPDR.PKT GT SCH (05:10)
[2019-10-26] MEDS: INSULIN GLARGINE,HUM 300 UNITS/3 ML CARTRIDGE SQ SCH ×2 (05:33→17:57)
[2019-10-26] MEDS: INSULIN REGULAR, HUMAN 300 UNIT/3 ML VIAL SQ PRN ×3 (05:34→22:41)
[2019-10-26] MEDS: BLOOD SUGAR DIAGNOSTIC 1 EACH STRIP VI SCH ×3 (05:34→22:28)
[2019-10-26] MEDS: HYDROGEN PEROXIDE 3% 118 ML BOTTLE TP SCH ×2 (07:06→21:24)
[2019-10-26 07:38] VITALS: BP 129/78
[2019-10-26] MEDS: POTASSIUM CHLORIDE 20 MEQ POWDER PACKET GT SCH (08:20)
[2019-10-26] MEDS: COD LIVER OIL/ZINC OXIDE OINT 113 GM TUBE TOP SCH ×2 (08:20→21:00)
[2019-10-26] MEDS: DOCUSATE SODIUM 100 MG/10 ML LIQUID UDC GT SCH ×2 (08:20→21:00)
[2019-10-26] MEDS: ACIDOPHILUS/BULGARICUS CHEW TAB GT SCH ×2 (08:20→21:00)
[2019-10-26 19:45] VITALS: BP 124/75
--- NOTE | 2019-10-26 20:20 | NUR ---
PT RECEIVED ON CONTINUOUS VENT, TRACH CARE DONE. TRACH IN PLACED AND SECURED WITH TRACH TIE. BACK UP TRACH AND AMBU BAG AT BEDSIDE. SUCTION PRN. VENT ALARMS AUDIBLE, CHECKED AND RESET. WILL CONTINUE TO MONITOR.
[2019-10-26] MEDS: FERROUS SULFATE 330 MG/7.5 ML UDC- FOR SA ONLY GT SCH (21:00)
[2019-10-26] MEDS: ATORVASTATIN 10 MG TABLET GT SCH (21:00)
[2019-10-27] MEDS: POLYVINYL ALCOHOL OPHT DROPS 15 ML BOTTLE EACHEYE SCH ×6 (00:11→20:41)
[2019-10-27] MEDS: SODIUM CHLORIDE 5% OPHT OINT 3.5 GM TUBE RIGHTEYE SCH ×6 (01:39→20:45)
[2019-10-27] MEDS: GLUCERNA 1.2 1000ML LIQUID GT PRN (02:48)
[2019-10-27] MEDS: PANTOPRAZOLE ORAL SUSPENSION 40 MG SUSPDR.PKT GT SCH (05:53)
[2019-10-27] MEDS: LEVOTHYROXINE SODIUM 50 MCG TABLET GT SCH (05:53)
[2019-10-27] MEDS: INSULIN GLARGINE,HUM 300 UNITS/3 ML CARTRIDGE SQ SCH ×2 (05:54→17:17)
[2019-10-27] MEDS: BLOOD SUGAR DIAGNOSTIC 1 EACH STRIP VI SCH ×3 (05:54→22:25)
[2019-10-27] MEDS: INSULIN REGULAR, HUMAN 300 UNIT/3 ML VIAL SQ PRN ×3 (05:55→22:28)
[2019-10-27 07:39] VITALS: BP 115/65
[2019-10-27] MEDS: DOCUSATE SODIUM 100 MG/10 ML LIQUID UDC GT SCH ×2 (08:18→20:42)
[2019-10-27] MEDS: ACIDOPHILUS/BULGARICUS CHEW TAB GT SCH ×2 (08:19→20:43)
[2019-10-27] MEDS: COD LIVER OIL/ZINC OXIDE OINT 113 GM TUBE TOP SCH ×2 (08:20→20:45)
[2019-10-27] MEDS: BISACODYL 10 MG SUPP.RECT RC SCH (08:20)
[2019-10-27] MEDS: POTASSIUM CHLORIDE 20 MEQ POWDER PACKET GT SCH (08:20)
[2019-10-27] MEDS: HYDROGEN PEROXIDE 3% 118 ML BOTTLE TP SCH ×2 (09:00→21:41)
--- NOTE | 2019-10-27 17:25 | NUR ---
Laboratory call with results,Covid 19 negative.
[2019-10-27 20:00] VITALS: BP 114/60
[2019-10-27] MEDS: FERROUS SULFATE 330 MG/7.5 ML UDC- FOR SA ONLY GT SCH (20:42)
[2019-10-27] MEDS: ATORVASTATIN 10 MG TABLET GT SCH (20:45)
[2019-10-28] MEDS: POLYVINYL ALCOHOL OPHT DROPS 15 ML BOTTLE EACHEYE SCH ×6 (00:19→20:00)
[2019-10-28] MEDS: GLUCERNA 1.2 1000ML LIQUID GT PRN ×2 (00:45→22:23)
[2019-10-28] MEDS: SODIUM CHLORIDE 5% OPHT OINT 3.5 GM TUBE RIGHTEYE SCH ×6 (00:59→21:00)
[2019-10-28] MEDS: LEVOTHYROXINE SODIUM 50 MCG TABLET GT SCH (05:08)
[2019-10-28] MEDS: PANTOPRAZOLE ORAL SUSPENSION 40 MG SUSPDR.PKT GT SCH (05:08)
[2019-10-28] MEDS: BLOOD SUGAR DIAGNOSTIC 1 EACH STRIP VI SCH ×3 (05:08→22:22)
[2019-10-28] MEDS: INSULIN GLARGINE,HUM 300 UNITS/3 ML CARTRIDGE SQ SCH ×2 (05:57→17:26)
[2019-10-28] MEDS: INSULIN REGULAR, HUMAN 300 UNIT/3 ML VIAL SQ PRN ×2 (05:58→22:24)
[2019-10-28 07:55] VITALS: BP 117/73
[2019-10-28] MEDS: DOCUSATE SODIUM 100 MG/10 ML LIQUID UDC GT SCH ×2 (08:36→21:00)
[2019-10-28] MEDS: ACIDOPHILUS/BULGARICUS CHEW TAB GT SCH ×2 (08:36→21:00)
[2019-10-28] MEDS: POTASSIUM CHLORIDE 20 MEQ POWDER PACKET GT SCH (08:36)
[2019-10-28] MEDS: COD LIVER OIL/ZINC OXIDE OINT 113 GM TUBE TOP SCH ×2 (08:37→21:00)
[2019-10-28] MEDS: HYDROGEN PEROXIDE 3% 118 ML BOTTLE TP SCH ×2 (08:50→18:54)
--- NOTE | 2019-10-28 20:08 | NUR ---
Spoke to Pt's daughter Mana,aware of the results of the COVID 19 are negative.
[2019-10-28 20:38] VITALS: BP 138/72
[2019-10-28] MEDS: FERROUS SULFATE 330 MG/7.5 ML UDC- FOR SA ONLY GT SCH (21:00)
[2019-10-28] MEDS: ATORVASTATIN 10 MG TABLET GT SCH (21:00)
[2019-10-29] MEDS: SODIUM CHLORIDE 5% OPHT OINT 3.5 GM TUBE RIGHTEYE SCH ×6 (01:17→21:10)
[2019-10-29] MEDS: POLYVINYL ALCOHOL OPHT DROPS 15 ML BOTTLE EACHEYE SCH ×6 (04:00→20:00)
[2019-10-29] MEDS: LEVOTHYROXINE SODIUM 50 MCG TABLET GT SCH (05:08)
[2019-10-29] MEDS: PANTOPRAZOLE ORAL SUSPENSION 40 MG SUSPDR.PKT GT SCH (05:08)
[2019-10-29] MEDS: BLOOD SUGAR DIAGNOSTIC 1 EACH STRIP VI SCH ×3 (05:21→21:19)
[2019-10-29] MEDS: INSULIN REGULAR, HUMAN 300 UNIT/3 ML VIAL SQ PRN ×3 (05:28→21:20)
[2019-10-29] MEDS: INSULIN GLARGINE,HUM 300 UNITS/3 ML CARTRIDGE SQ SCH ×2 (05:28→18:27)
[2019-10-29 07:32] VITALS: BP 108/73
[2019-10-29] MEDS: DOCUSATE SODIUM 100 MG/10 ML LIQUID UDC GT SCH ×2 (08:31→21:10)
[2019-10-29] MEDS: ACIDOPHILUS/BULGARICUS CHEW TAB GT SCH ×2 (08:31→21:10)
[2019-10-29] MEDS: BISACODYL 10 MG SUPP.RECT RC SCH (08:32)
[2019-10-29] MEDS: POTASSIUM CHLORIDE 20 MEQ POWDER PACKET GT SCH (08:32)
[2019-10-29] MEDS: COD LIVER OIL/ZINC OXIDE OINT 113 GM TUBE TOP SCH ×2 (08:32→21:10)
[2019-10-29] MEDS: HYDROGEN PEROXIDE 3% 118 ML BOTTLE TP SCH ×2 (09:29→21:17)
[2019-10-29 20:06] VITALS: BP 149/77
[2019-10-29] MEDS: FERROUS SULFATE 330 MG/7.5 ML UDC- FOR SA ONLY GT SCH (21:10)
[2019-10-29] MEDS: ATORVASTATIN 10 MG TABLET GT SCH (21:10)
[2019-10-29] MEDS: GLUCERNA 1.2 1000ML LIQUID GT PRN (21:15)
[2019-10-30] MEDS: SODIUM CHLORIDE 5% OPHT OINT 3.5 GM TUBE RIGHTEYE SCH ×6 (00:53→20:42)
[2019-10-30] MEDS: POLYVINYL ALCOHOL OPHT DROPS 15 ML BOTTLE EACHEYE SCH ×7 (00:53→23:16)
[2019-10-30] MEDS: LEVOTHYROXINE SODIUM 50 MCG TABLET GT SCH (05:32)
[2019-10-30] MEDS: BLOOD SUGAR DIAGNOSTIC 1 EACH STRIP VI SCH ×3 (05:32→21:53)
[2019-10-30] MEDS: PANTOPRAZOLE ORAL SUSPENSION 40 MG SUSPDR.PKT GT SCH (05:32)
[2019-10-30] MEDS: INSULIN GLARGINE,HUM 300 UNITS/3 ML CARTRIDGE SQ SCH ×2 (05:33→18:53)
[2019-10-30] MEDS: INSULIN REGULAR, HUMAN 300 UNIT/3 ML VIAL SQ PRN ×2 (05:34→22:09)
[2019-10-30] MEDS: HYDROGEN PEROXIDE 3% 118 ML BOTTLE TP SCH ×2 (07:20→21:24)
[2019-10-30 07:31] VITALS: BP 106/68
[2019-10-30] MEDS: ACIDOPHILUS/BULGARICUS CHEW TAB GT SCH ×2 (09:51→20:41)
[2019-10-30] MEDS: COD LIVER OIL/ZINC OXIDE OINT 113 GM TUBE TOP SCH ×2 (09:51→20:43)
[2019-10-30] MEDS: POTASSIUM CHLORIDE 20 MEQ POWDER PACKET GT SCH (09:51)
[2019-10-30] MEDS: DOCUSATE SODIUM 100 MG/10 ML LIQUID UDC GT SCH ×2 (09:51→20:40)
--- NOTE | 2019-10-30 16:07 | NUR ---
INTERDISCIPLINARY PLAN OF CARE CONFERENCE was held today. Patient's zander was not available to participate in the meeting. Dr. Nolan and the Interdisciplinary team reviewed the current plan of care in detail. RN reported on patient's current medical condition, stating that there have been no changes in condition at this time. See RN IDT conference notes. See also all other disciplines IDT notes and physician's progress notes for additional details.
[2019-10-30 20:00] VITALS: BP 154/95
[2019-10-30] MEDS: FERROUS SULFATE 330 MG/7.5 ML UDC- FOR SA ONLY GT SCH (20:40)
[2019-10-30] MEDS: ATORVASTATIN 10 MG TABLET GT SCH (20:41)
[2019-10-31] MEDS: SODIUM CHLORIDE 5% OPHT OINT 3.5 GM TUBE RIGHTEYE SCH ×6 (01:20→21:23)
[2019-10-31] MEDS: POLYVINYL ALCOHOL OPHT DROPS 15 ML BOTTLE EACHEYE SCH ×5 (04:21→20:00)
[2019-10-31] MEDS: LEVOTHYROXINE SODIUM 50 MCG TABLET GT SCH (05:07)
[2019-10-31] MEDS: PANTOPRAZOLE ORAL SUSPENSION 40 MG SUSPDR.PKT GT SCH (05:07)
[2019-10-31] MEDS: BLOOD SUGAR DIAGNOSTIC 1 EACH STRIP VI SCH ×3 (05:08→21:23)
[2019-10-31] MEDS: INSULIN REGULAR, HUMAN 300 UNIT/3 ML VIAL SQ PRN ×3 (06:11→21:35)
[2019-10-31] MEDS: INSULIN GLARGINE,HUM 300 UNITS/3 ML CARTRIDGE SQ SCH ×2 (06:13→17:00)
[2019-10-31 07:30] VITALS: BP 133/75
[2019-10-31] MEDS: HYDROGEN PEROXIDE 3% 118 ML BOTTLE TP SCH ×2 (08:50→18:50)
[2019-10-31] MEDS: BISACODYL 10 MG SUPP.RECT RC SCH (09:00)
[2019-10-31] MEDS: DOCUSATE SODIUM 100 MG/10 ML LIQUID UDC GT SCH ×2 (09:00→21:21)
[2019-10-31] MEDS: ACIDOPHILUS/BULGARICUS CHEW TAB GT SCH ×2 (09:00→21:22)
[2019-10-31] MEDS: COD LIVER OIL/ZINC OXIDE OINT 113 GM TUBE TOP SCH ×2 (09:00→21:23)
[2019-10-31] MEDS: POTASSIUM CHLORIDE 20 MEQ POWDER PACKET GT SCH (09:00)
--- NOTE | 2019-10-31 15:53 | NUR ---
New order for COVID-19 test per [facility] COVID-19 requirement.
--- NOTE | 2019-10-31 17:18 | NUR ---
Seen and examined by Dr Nolan with new orders noted.
[2019-10-31] MEDS: GLUCERNA 1.2 1000ML LIQUID GT PRN (18:19)
--- NOTE | 2019-10-31 18:39 | NUR ---
Informed PT's daughter Mana,COVID-19 there will be a 2nd round of testing good understanding verbalized.
[2019-10-31 20:00] VITALS: BP 155/92
[2019-10-31] MEDS: FERROUS SULFATE 330 MG/7.5 ML UDC- FOR SA ONLY GT SCH (21:21)
[2019-10-31] MEDS: ATORVASTATIN 10 MG TABLET GT SCH (21:23)
[2019-11-01] MEDS: POLYVINYL ALCOHOL OPHT DROPS 15 ML BOTTLE EACHEYE SCH ×6 (00:13→20:00)
[2019-11-01] MEDS: SODIUM CHLORIDE 5% OPHT OINT 3.5 GM TUBE RIGHTEYE SCH ×6 (01:27→21:20)
[2019-11-01] MEDS: PANTOPRAZOLE ORAL SUSPENSION 40 MG SUSPDR.PKT GT SCH (05:18)
[2019-11-01] MEDS: BLOOD SUGAR DIAGNOSTIC 1 EACH STRIP VI SCH ×3 (05:18→22:05)
[2019-11-01] MEDS: LEVOTHYROXINE SODIUM 50 MCG TABLET GT SCH (05:18)
[2019-11-01] MEDS: INSULIN REGULAR, HUMAN 300 UNIT/3 ML VIAL SQ PRN ×3 (05:22→22:07)
[2019-11-01 07:45] VITALS: BP 131/72
[2019-11-01] MEDS: DOCUSATE SODIUM 100 MG/10 ML LIQUID UDC GT SCH ×2 (08:53→21:19)
[2019-11-01] MEDS: ACIDOPHILUS/BULGARICUS CHEW TAB GT SCH ×2 (08:54→21:19)
[2019-11-01] MEDS: POTASSIUM CHLORIDE 20 MEQ POWDER PACKET GT SCH (08:54)
[2019-11-01] MEDS: COD LIVER OIL/ZINC OXIDE OINT 113 GM TUBE TOP SCH ×2 (08:57→21:20)
[2019-11-01] MEDS: INSULIN GLARGINE,HUM 300 UNITS/3 ML CARTRIDGE SQ SCH ×2 (08:58→17:53)
[2019-11-01] MEDS: HYDROGEN PEROXIDE 3% 118 ML BOTTLE TP SCH ×2 (09:10→20:55)
--- NOTE | 2019-11-01 18:42 | NUR ---
PT'S DTR. TRIP AWARE OF COVID 19 TESTING TOMORROW AND IN AGREEMENT.
[2019-11-01 20:00] VITALS: BP 122/76
--- NOTE | 2019-11-01 20:10 | NUR ---
PT RECEIVED ON CONTINUOUS VENT, TRACH CARE DONE. TRACH IN PLACED AND SECURED WITH TRACH TIE. BACK UP TRACH AND AMBU BAG AT BEDSIDE. SUCTION PRN. VENT CHECKED, ALARMS WORKING WELL AND AUDIBLE. NO DISTRESS NOTED AT THIS TIME. WILL CONTINUE TO MONITOR.
[2019-11-01] MEDS: ATORVASTATIN 10 MG TABLET GT SCH (21:19)
[2019-11-01] MEDS: FERROUS SULFATE 330 MG/7.5 ML UDC- FOR SA ONLY GT SCH (21:19)
[2019-11-02] MEDS: POLYVINYL ALCOHOL OPHT DROPS 15 ML BOTTLE EACHEYE SCH ×7 (00:43→23:12)
[2019-11-02] MEDS: SODIUM CHLORIDE 5% OPHT OINT 3.5 GM TUBE RIGHTEYE SCH ×6 (00:43→21:33)
[2019-11-02] MEDS: LEVOTHYROXINE SODIUM 50 MCG TABLET GT SCH (05:10)
[2019-11-02] MEDS: PANTOPRAZOLE ORAL SUSPENSION 40 MG SUSPDR.PKT GT SCH (05:10)
[2019-11-02] MEDS: BLOOD SUGAR DIAGNOSTIC 1 EACH STRIP VI SCH ×3 (05:11→21:56)
[2019-11-02] MEDS: INSULIN REGULAR, HUMAN 300 UNIT/3 ML VIAL SQ PRN ×3 (05:13→21:59)
[2019-11-02 07:55] VITALS: BP 101/65
[2019-11-02] MEDS: HYDROGEN PEROXIDE 3% 118 ML BOTTLE TP SCH ×2 (08:43→21:20)
[2019-11-02] MEDS: DOCUSATE SODIUM 100 MG/10 ML LIQUID UDC GT SCH ×2 (09:04→21:33)
[2019-11-02] MEDS: ACIDOPHILUS/BULGARICUS CHEW TAB GT SCH ×2 (09:05→21:33)
[2019-11-02] MEDS: POTASSIUM CHLORIDE 20 MEQ POWDER PACKET GT SCH (09:06)
[2019-11-02] MEDS: BISACODYL 10 MG SUPP.RECT RC SCH (09:06)
[2019-11-02] MEDS: INSULIN GLARGINE,HUM 300 UNITS/3 ML CARTRIDGE SQ SCH ×2 (09:07→17:13)
[2019-11-02] MEDS: COD LIVER OIL/ZINC OXIDE OINT 113 GM TUBE TOP SCH ×2 (09:07→21:33)
[2019-11-02] MEDS: GLUCERNA 1.2 1000ML LIQUID GT PRN (13:46)
[2019-11-02 20:00] VITALS: BP 136/84
--- NOTE | 2019-11-02 20:15 | NUR ---
PT REMAIN ON CONTINUOUS VENT, TRACH CARE DONE. TRACH IN PLACED AND SECURED WITH TRACH TIE. BACK UP TRACH AND AMBU BAG AT BEDSIDE. SUCTION PRN. VENT CHECKED, ALARMS WORKING WELL AND AUDIBLE. NO DISTRESS NOTED AT THIS TIME. WILL CONTINUE TO MONITOR.
[2019-11-02] MEDS: FERROUS SULFATE 330 MG/7.5 ML UDC- FOR SA ONLY GT SCH (21:33)
[2019-11-02] MEDS: ATORVASTATIN 10 MG TABLET GT SCH (21:33)
[2019-11-03] MEDS: SODIUM CHLORIDE 5% OPHT OINT 3.5 GM TUBE RIGHTEYE SCH ×2 (01:04→04:37)
[2019-11-03] MEDS: POLYVINYL ALCOHOL OPHT DROPS 15 ML BOTTLE EACHEYE SCH ×5 (04:37→20:00)
[2019-11-03] MEDS: LEVOTHYROXINE SODIUM 50 MCG TABLET GT SCH (05:08)
[2019-11-03] MEDS: BLOOD SUGAR DIAGNOSTIC 1 EACH STRIP VI SCH ×3 (05:08→21:42)
[2019-11-03] MEDS: PANTOPRAZOLE ORAL SUSPENSION 40 MG SUSPDR.PKT GT SCH (05:08)
[2019-11-03] MEDS: INSULIN REGULAR, HUMAN 300 UNIT/3 ML VIAL SQ PRN ×3 (05:09→21:44)
[2019-11-03 07:34] VITALS: BP 116/76
[2019-11-03] MEDS: DOCUSATE SODIUM 100 MG/10 ML LIQUID UDC GT SCH ×2 (08:21→21:29)
[2019-11-03] MEDS: ACIDOPHILUS/BULGARICUS CHEW TAB GT SCH ×2 (08:21→21:29)
[2019-11-03] MEDS: COD LIVER OIL/ZINC OXIDE OINT 113 GM TUBE TOP SCH ×2 (08:23→21:30)
[2019-11-03] MEDS: INSULIN GLARGINE,HUM 300 UNITS/3 ML CARTRIDGE SQ SCH ×2 (08:31→17:19)
[2019-11-03] MEDS: POTASSIUM CHLORIDE 20 MEQ POWDER PACKET GT SCH (08:34)
[2019-11-03] MEDS: HYDROGEN PEROXIDE 3% 118 ML BOTTLE TP SCH ×2 (08:48→21:13)
[2019-11-03] MEDS: GLUCERNA 1.2 1000ML LIQUID GT PRN ×2 (13:48→13:49)
--- NOTE | 2019-11-03 16:12 | NUR ---
NEW ORDER CARRIED OUT FROM DR. MENDOZA TO D/C ANG 128 5% AND START ON REFRESH GEL OPHTHALMIC OINTMENT.(D/T ANG OINTMENT NOT AVAILABLE [facility]).
--- NOTE | 2019-11-03 16:15 | NUR ---
Dr. Araujo (dry cleaning teacher)was called previously and message left but no answer.
[2019-11-03] MEDS: REFRESH EYE RIGHTEYE SCH ×2 (17:51→21:30)
[2019-11-03] MEDS: FERROUS SULFATE 330 MG/7.5 ML UDC- FOR SA ONLY GT SCH (21:29)
[2019-11-03] MEDS: ATORVASTATIN 10 MG TABLET GT SCH (21:30)
[2019-11-03 22:40] VITALS: BP 135/83
[2019-11-04] MEDS: POLYVINYL ALCOHOL OPHT DROPS 15 ML BOTTLE EACHEYE SCH ×6 (00:24→19:58)
[2019-11-04] MEDS: REFRESH EYE RIGHTEYE SCH ×6 (01:05→21:48)
[2019-11-04] MEDS: PANTOPRAZOLE ORAL SUSPENSION 40 MG SUSPDR.PKT GT SCH (05:40)
[2019-11-04] MEDS: BLOOD SUGAR DIAGNOSTIC 1 EACH STRIP VI SCH ×3 (05:40→22:15)
[2019-11-04] MEDS: LEVOTHYROXINE SODIUM 50 MCG TABLET GT SCH (05:40)
[2019-11-04] MEDS: INSULIN REGULAR, HUMAN 300 UNIT/3 ML VIAL SQ PRN ×3 (05:41→22:17)
[2019-11-04] MEDS: HYDROGEN PEROXIDE 3% 118 ML BOTTLE TP SCH ×2 (07:21→21:16)
[2019-11-04 07:47] VITALS: BP 104/64
[2019-11-04] MEDS: DOCUSATE SODIUM 100 MG/10 ML LIQUID UDC GT SCH ×2 (08:42→21:48)
[2019-11-04] MEDS: POTASSIUM CHLORIDE 20 MEQ POWDER PACKET GT SCH (08:43)
[2019-11-04] MEDS: ACIDOPHILUS/BULGARICUS CHEW TAB GT SCH ×2 (08:43→21:48)
[2019-11-04] MEDS: BISACODYL 10 MG SUPP.RECT RC SCH (08:44)
[2019-11-04] MEDS: INSULIN GLARGINE,HUM 300 UNITS/3 ML CARTRIDGE SQ SCH ×2 (08:48→17:18)
[2019-11-04] MEDS: COD LIVER OIL/ZINC OXIDE OINT 113 GM TUBE TOP SCH ×2 (08:48→21:48)
[2019-11-04] MEDS: GLUCERNA 1.2 1000ML LIQUID GT PRN (16:00)
--- NOTE | 2019-11-04 16:29 | NUR ---
PT'S DTR. TRIP AWARE THAT PT. IS NEGATIVE FOR COVID 19 TEST .
[2019-11-04 19:49] VITALS: BP 131/81
[2019-11-04] MEDS: FERROUS SULFATE 330 MG/7.5 ML UDC- FOR SA ONLY GT SCH (21:48)
[2019-11-04] MEDS: ATORVASTATIN 10 MG TABLET GT SCH (21:48)
[2019-11-05] MEDS: POLYVINYL ALCOHOL OPHT DROPS 15 ML BOTTLE EACHEYE SCH ×6 (00:07→20:00)
[2019-11-05] MEDS: REFRESH EYE RIGHTEYE SCH ×6 (01:03→21:55)
[2019-11-05] MEDS: LEVOTHYROXINE SODIUM 50 MCG TABLET GT SCH (05:35)
[2019-11-05] MEDS: PANTOPRAZOLE ORAL SUSPENSION 40 MG SUSPDR.PKT GT SCH (05:35)
[2019-11-05] MEDS: BLOOD SUGAR DIAGNOSTIC 1 EACH STRIP VI SCH ×3 (05:36→22:10)
[2019-11-05] MEDS: INSULIN REGULAR, HUMAN 300 UNIT/3 ML VIAL SQ PRN ×3 (05:37→22:42)
[2019-11-05 06:34] LABS: BASOPHILS % (AUTO) 0.4 % (0.0-2.0); EOSINOPHILS # (AUTO) 0.3 K/uL (0.0-0.7); EOSINOPHILS % (AUTO) 4.2 % (0.0-7.0); HEMATOCRIT 36.1 % (36.7-47.1); HEMOGLOBIN 11.8 g/dL (12.5-16.3); LYMPHOCYTES # (AUTO) 1.7 K/uL (20.0-40.0); LYMPHOCYTES % (AUTO) 26.5 % (20.5-51.5); MEAN CORPUSCULAR HEMOGLOBIN 28.1 uug (23.8-33.4); MEAN CORPUSCULAR HGB CONC 33 g/dL (32.5-36.3); MEAN CORPUSCULAR VOLUME 85.7 fL (73.0-96.2); MONOCYTES # (AUTO) 0.4 K/uL (2.0-10.0); MONOCYTES % (AUTO) 6.9 % (0.0-11.0); PLATELET COUNT (AUTO) 231 K/uL (152-348); RED BLOOD CELL COUNT(AUTO) 4.22 MIL/uL (4.06-5.63); WHITE BLOOD COUNT (AUTO) 6.5 K/uL (3.6-10.2)
[2019-11-05 06:49] LABS: CREATININE 0.9 mg/dL (0.6-1.3); POTASSIUM 3.9 mmol/L (3.5-5.1)
[2019-11-05 07:32] VITALS: BP 97/59
[2019-11-05] MEDS: ACIDOPHILUS/BULGARICUS CHEW TAB GT SCH ×2 (08:20→21:55)
[2019-11-05] MEDS: DOCUSATE SODIUM 100 MG/10 ML LIQUID UDC GT SCH ×2 (08:20→21:55)
[2019-11-05] MEDS: POTASSIUM CHLORIDE 20 MEQ POWDER PACKET GT SCH (08:23)
[2019-11-05] MEDS: COD LIVER OIL/ZINC OXIDE OINT 113 GM TUBE TOP SCH ×2 (08:24→21:55)
[2019-11-05] MEDS: INSULIN GLARGINE,HUM 300 UNITS/3 ML CARTRIDGE SQ SCH ×2 (08:25→16:16)
[2019-11-05] MEDS: HYDROGEN PEROXIDE 3% 118 ML BOTTLE TP SCH ×2 (08:36→21:35)
--- NOTE | 2019-11-05 14:27 | NUR ---
PT. WAS SEEN AND EXAMINED BY DR. DAYRON Maguire AND WITH NNO.
--- NOTE | 2019-11-05 16:00 | NUR ---
SEEN BY ANAID Maguire AND DR. CAMARENA AND WITH NNO.
[2019-11-05 20:44] VITALS: BP 121/72
[2019-11-05] MEDS: FERROUS SULFATE 330 MG/7.5 ML UDC- FOR SA ONLY GT SCH (21:55)
[2019-11-05] MEDS: ATORVASTATIN 10 MG TABLET GT SCH (21:55)
[2019-11-06] MEDS: POLYVINYL ALCOHOL OPHT DROPS 15 ML BOTTLE EACHEYE SCH ×7 (00:30→23:21)
[2019-11-06] MEDS: REFRESH EYE RIGHTEYE SCH ×6 (01:54→20:16)
[2019-11-06] MEDS: PANTOPRAZOLE ORAL SUSPENSION 40 MG SUSPDR.PKT GT SCH (05:15)
[2019-11-06] MEDS: LEVOTHYROXINE SODIUM 50 MCG TABLET GT SCH (05:15)
[2019-11-06] MEDS: BLOOD SUGAR DIAGNOSTIC 1 EACH STRIP VI SCH ×3 (05:16→21:48)
[2019-11-06] MEDS: INSULIN REGULAR, HUMAN 300 UNIT/3 ML VIAL SQ PRN ×3 (05:27→21:50)
[2019-11-06 07:43] VITALS: BP 98/63
[2019-11-06] MEDS: HYDROGEN PEROXIDE 3% 118 ML BOTTLE TP SCH ×2 (09:15→21:03)
[2019-11-06] MEDS: DOCUSATE SODIUM 100 MG/10 ML LIQUID UDC GT SCH ×2 (09:29→20:11)
[2019-11-06] MEDS: ACIDOPHILUS/BULGARICUS CHEW TAB GT SCH ×2 (09:29→20:14)
[2019-11-06] MEDS: POTASSIUM CHLORIDE 20 MEQ POWDER PACKET GT SCH (09:30)
[2019-11-06] MEDS: BISACODYL 10 MG SUPP.RECT RC SCH (09:30)
[2019-11-06] MEDS: COD LIVER OIL/ZINC OXIDE OINT 113 GM TUBE TOP SCH ×2 (09:31→20:16)
[2019-11-06] MEDS: INSULIN GLARGINE,HUM 300 UNITS/3 ML CARTRIDGE SQ SCH ×2 (09:39→17:18)
[2019-11-06] MEDS: GLUCERNA 1.2 1000ML LIQUID GT PRN (11:50)
[2019-11-06 19:59] VITALS: BP 132/80
[2019-11-06] MEDS: FERROUS SULFATE 330 MG/7.5 ML UDC- FOR SA ONLY GT SCH (20:14)
[2019-11-06] MEDS: ATORVASTATIN 10 MG TABLET GT SCH (20:14)
[2019-11-07] MEDS: REFRESH EYE RIGHTEYE SCH ×6 (01:00→20:40)
[2019-11-07] MEDS: POLYVINYL ALCOHOL OPHT DROPS 15 ML BOTTLE EACHEYE SCH ×6 (04:00→23:09)
[2019-11-07] MEDS: LEVOTHYROXINE SODIUM 50 MCG TABLET GT SCH (05:47)
[2019-11-07] MEDS: PANTOPRAZOLE ORAL SUSPENSION 40 MG SUSPDR.PKT GT SCH (05:47)
[2019-11-07] MEDS: BLOOD SUGAR DIAGNOSTIC 1 EACH STRIP VI SCH ×3 (05:48→22:56)
[2019-11-07] MEDS: INSULIN REGULAR, HUMAN 300 UNIT/3 ML VIAL SQ PRN ×3 (05:49→22:58)
[2019-11-07 07:45] VITALS: BP 122/77
[2019-11-07] MEDS: HYDROGEN PEROXIDE 3% 118 ML BOTTLE TP SCH ×2 (08:22→21:23)
[2019-11-07] MEDS: DOCUSATE SODIUM 100 MG/10 ML LIQUID UDC GT SCH ×2 (08:53→20:37)
[2019-11-07] MEDS: ACIDOPHILUS/BULGARICUS CHEW TAB GT SCH ×2 (08:54→20:38)
[2019-11-07] MEDS: POTASSIUM CHLORIDE 20 MEQ POWDER PACKET GT SCH (08:55)
[2019-11-07] MEDS: COD LIVER OIL/ZINC OXIDE OINT 113 GM TUBE TOP SCH ×2 (08:56→20:44)
[2019-11-07] MEDS: INSULIN GLARGINE,HUM 300 UNITS/3 ML CARTRIDGE SQ SCH ×2 (09:04→16:44)
[2019-11-07] MEDS: GLUCERNA 1.2 1000ML LIQUID GT PRN (10:52)
[2019-11-07 20:03] VITALS: BP 105/57
[2019-11-07] MEDS: FERROUS SULFATE 330 MG/7.5 ML UDC- FOR SA ONLY GT SCH (20:37)
[2019-11-07] MEDS: ATORVASTATIN 10 MG TABLET GT SCH (20:39)
[2019-11-08] MEDS: REFRESH EYE RIGHTEYE SCH ×6 (01:00→20:42)
[2019-11-08] MEDS: POLYVINYL ALCOHOL OPHT DROPS 15 ML BOTTLE EACHEYE SCH ×6 (04:15→23:28)
[2019-11-08] MEDS: LEVOTHYROXINE SODIUM 50 MCG TABLET GT SCH (06:05)
[2019-11-08] MEDS: PANTOPRAZOLE ORAL SUSPENSION 40 MG SUSPDR.PKT GT SCH (06:05)
[2019-11-08] MEDS: BLOOD SUGAR DIAGNOSTIC 1 EACH STRIP VI SCH ×3 (06:06→22:02)
[2019-11-08] MEDS: INSULIN REGULAR, HUMAN 300 UNIT/3 ML VIAL SQ PRN ×2 (06:07→22:04)
[2019-11-08 07:32] VITALS: BP 130/64
[2019-11-08] MEDS: DOCUSATE SODIUM 100 MG/10 ML LIQUID UDC GT SCH ×2 (08:55→20:40)
[2019-11-08] MEDS: ACIDOPHILUS/BULGARICUS CHEW TAB GT SCH ×2 (08:55→20:41)
[2019-11-08] MEDS: POTASSIUM CHLORIDE 20 MEQ POWDER PACKET GT SCH (08:56)
[2019-11-08] MEDS: BISACODYL 10 MG SUPP.RECT RC SCH (08:57)
[2019-11-08] MEDS: COD LIVER OIL/ZINC OXIDE OINT 113 GM TUBE TOP SCH ×2 (08:58→20:42)
[2019-11-08] MEDS: INSULIN GLARGINE,HUM 300 UNITS/3 ML CARTRIDGE SQ SCH ×2 (09:00→17:10)
[2019-11-08] MEDS: HYDROGEN PEROXIDE 3% 118 ML BOTTLE TP SCH ×2 (09:00→21:30)
[2019-11-08] MEDS: GLUCERNA 1.2 1000ML LIQUID GT PRN (10:34)
[2019-11-08] MEDS: FERROUS SULFATE 330 MG/7.5 ML UDC- FOR SA ONLY GT SCH (20:40)
[2019-11-08] MEDS: ATORVASTATIN 10 MG TABLET GT SCH (20:41)
[2019-11-08 21:02] VITALS: BP 108/70
[2019-11-09] MEDS: REFRESH EYE RIGHTEYE SCH ×6 (01:00→20:38)
[2019-11-09] MEDS: POLYVINYL ALCOHOL OPHT DROPS 15 ML BOTTLE EACHEYE SCH ×6 (04:00→23:12)
[2019-11-09] MEDS: GLUCERNA 1.2 1000ML LIQUID GT PRN ×2 (04:24→21:22)
[2019-11-09] MEDS: LEVOTHYROXINE SODIUM 50 MCG TABLET GT SCH (06:07)
[2019-11-09] MEDS: PANTOPRAZOLE ORAL SUSPENSION 40 MG SUSPDR.PKT GT SCH (06:07)
[2019-11-09] MEDS: BLOOD SUGAR DIAGNOSTIC 1 EACH STRIP VI SCH ×3 (06:07→21:01)
[2019-11-09] MEDS: INSULIN REGULAR, HUMAN 300 UNIT/3 ML VIAL SQ PRN ×3 (06:20→21:04)
[2019-11-09 07:45] VITALS: BP 108/67
[2019-11-09] MEDS: ACIDOPHILUS/BULGARICUS CHEW TAB GT SCH ×2 (08:40→20:38)
[2019-11-09] MEDS: DOCUSATE SODIUM 100 MG/10 ML LIQUID UDC GT SCH ×2 (08:40→20:38)
[2019-11-09] MEDS: POTASSIUM CHLORIDE 20 MEQ POWDER PACKET GT SCH (08:40)
[2019-11-09] MEDS: INSULIN GLARGINE,HUM 300 UNITS/3 ML CARTRIDGE SQ SCH ×2 (08:42→17:30)
[2019-11-09] MEDS: COD LIVER OIL/ZINC OXIDE OINT 113 GM TUBE TOP SCH ×2 (08:43→20:39)
[2019-11-09] MEDS: HYDROGEN PEROXIDE 3% 118 ML BOTTLE TP SCH ×2 (09:22→21:25)
--- NOTE | 2019-11-09 17:05 | NUR ---
Called daughter Mana terrell, unable to leave message regarding covid19 test (negative), voice mail is full.
--- NOTE | 2019-11-09 17:26 | NUR ---
Daughter Mana, was informed test for covid19 was negative.
--- NOTE | 2019-11-09 20:00 | NUR ---
PT REMAIN ON CONTINUOUS VENT, TRACH CARE DONE. VENT CIRCUIT CHANGED. TRACH IN PLACED AND SECURED WITH TRACH TIE. BACK UP TRACH AND AMBU BAG AT BEDSIDE. SUCTION PRN. VENT CHECKED, ALARMS WORKING WELL AND AUDIBLE. NO DISTRESS NOTED AT THIS TIME. WILL CONTINUE TO MONITOR.
[2019-11-09 20:10] VITALS: BP 104/67
[2019-11-09] MEDS: FERROUS SULFATE 330 MG/7.5 ML UDC- FOR SA ONLY GT SCH (20:38)
[2019-11-09] MEDS: ATORVASTATIN 10 MG TABLET GT SCH (20:38)
[2019-11-10] MEDS: REFRESH EYE RIGHTEYE SCH ×6 (00:13→21:07)
[2019-11-10] MEDS: POLYVINYL ALCOHOL OPHT DROPS 15 ML BOTTLE EACHEYE SCH ×6 (04:01→23:11)
[2019-11-10] MEDS: BLOOD SUGAR DIAGNOSTIC 1 EACH STRIP VI SCH ×3 (05:44→21:08)
[2019-11-10] MEDS: LEVOTHYROXINE SODIUM 50 MCG TABLET GT SCH (05:44)
[2019-11-10] MEDS: PANTOPRAZOLE ORAL SUSPENSION 40 MG SUSPDR.PKT GT SCH (05:44)
[2019-11-10] MEDS: INSULIN REGULAR, HUMAN 300 UNIT/3 ML VIAL SQ PRN ×3 (05:45→21:07)
[2019-11-10 07:43] VITALS: BP 96/64
[2019-11-10] MEDS: POTASSIUM CHLORIDE 20 MEQ POWDER PACKET GT SCH (08:27)
[2019-11-10] MEDS: DOCUSATE SODIUM 100 MG/10 ML LIQUID UDC GT SCH ×2 (08:27→21:07)
[2019-11-10] MEDS: ACIDOPHILUS/BULGARICUS CHEW TAB GT SCH ×2 (08:27→21:07)
[2019-11-10] MEDS: BISACODYL 10 MG SUPP.RECT RC SCH (08:28)
[2019-11-10] MEDS: COD LIVER OIL/ZINC OXIDE OINT 113 GM TUBE TOP SCH ×2 (08:29→21:07)
[2019-11-10] MEDS: INSULIN GLARGINE,HUM 300 UNITS/3 ML CARTRIDGE SQ SCH ×2 (08:29→21:07)
[2019-11-10] MEDS: HYDROGEN PEROXIDE 3% 118 ML BOTTLE TP SCH ×2 (09:00→21:24)
[2019-11-10 20:12] VITALS: BP 128/84
[2019-11-10] MEDS: FERROUS SULFATE 330 MG/7.5 ML UDC- FOR SA ONLY GT SCH (21:07)
[2019-11-10] MEDS: ATORVASTATIN 10 MG TABLET GT SCH (21:07)
[2019-11-10] MEDS: GLUCERNA 1.2 1000ML LIQUID GT PRN (21:26)
[2019-11-11] MEDS: REFRESH EYE RIGHTEYE SCH ×6 (00:50→21:08)
[2019-11-11] MEDS: POLYVINYL ALCOHOL OPHT DROPS 15 ML BOTTLE EACHEYE SCH ×6 (03:09→23:36)
[2019-11-11] MEDS: LEVOTHYROXINE SODIUM 50 MCG TABLET GT SCH (05:25)
[2019-11-11] MEDS: INSULIN REGULAR, HUMAN 300 UNIT/3 ML VIAL SQ PRN ×3 (05:25→21:09)
[2019-11-11] MEDS: BLOOD SUGAR DIAGNOSTIC 1 EACH STRIP VI SCH ×3 (05:25→21:08)
[2019-11-11] MEDS: PANTOPRAZOLE ORAL SUSPENSION 40 MG SUSPDR.PKT GT SCH (05:25)
[2019-11-11 07:45] VITALS: BP 107/69
[2019-11-11] MEDS: ACIDOPHILUS/BULGARICUS CHEW TAB GT SCH ×2 (08:25→21:08)
[2019-11-11] MEDS: DOCUSATE SODIUM 100 MG/10 ML LIQUID UDC GT SCH ×2 (08:25→21:08)
[2019-11-11] MEDS: POTASSIUM CHLORIDE 20 MEQ POWDER PACKET GT SCH (08:25)
[2019-11-11] MEDS: COD LIVER OIL/ZINC OXIDE OINT 113 GM TUBE TOP SCH ×2 (08:26→21:08)
[2019-11-11] MEDS: INSULIN GLARGINE,HUM 300 UNITS/3 ML CARTRIDGE SQ SCH ×2 (08:31→21:09)
[2019-11-11] MEDS: HYDROGEN PEROXIDE 3% 118 ML BOTTLE TP SCH ×2 (09:47→21:21)
[2019-11-11] MEDS: GLUCERNA 1.2 1000ML LIQUID GT PRN (15:53)
[2019-11-11 20:06] VITALS: BP 109/74
[2019-11-11] MEDS: FERROUS SULFATE 330 MG/7.5 ML UDC- FOR SA ONLY GT SCH (21:08)
[2019-11-11] MEDS: ATORVASTATIN 10 MG TABLET GT SCH (21:08)
[2019-11-12] MEDS: REFRESH EYE RIGHTEYE SCH ×6 (00:24→21:00)
[2019-11-12] MEDS: POLYVINYL ALCOHOL OPHT DROPS 15 ML BOTTLE EACHEYE SCH ×6 (03:13→23:36)
[2019-11-12] MEDS: PANTOPRAZOLE ORAL SUSPENSION 40 MG SUSPDR.PKT GT SCH (05:19)
[2019-11-12] MEDS: LEVOTHYROXINE SODIUM 50 MCG TABLET GT SCH (05:19)
[2019-11-12] MEDS: INSULIN REGULAR, HUMAN 300 UNIT/3 ML VIAL SQ PRN ×3 (05:19→22:21)
[2019-11-12] MEDS: BLOOD SUGAR DIAGNOSTIC 1 EACH STRIP VI SCH ×3 (05:19→22:20)
[2019-11-12 07:46] VITALS: BP 113/69
[2019-11-12] MEDS: ACIDOPHILUS/BULGARICUS CHEW TAB GT SCH ×2 (08:00→21:00)
[2019-11-12] MEDS: DOCUSATE SODIUM 100 MG/10 ML LIQUID UDC GT SCH ×2 (08:00→21:00)
[2019-11-12] MEDS: POTASSIUM CHLORIDE 20 MEQ POWDER PACKET GT SCH (08:01)
[2019-11-12] MEDS: BISACODYL 10 MG SUPP.RECT RC SCH (08:01)
[2019-11-12] MEDS: INSULIN GLARGINE,HUM 300 UNITS/3 ML CARTRIDGE SQ SCH ×2 (08:02→21:00)
[2019-11-12] MEDS: COD LIVER OIL/ZINC OXIDE OINT 113 GM TUBE TOP SCH ×2 (08:02→21:00)
[2019-11-12] MEDS: HYDROGEN PEROXIDE 3% 118 ML BOTTLE TP SCH ×2 (08:18→21:40)
[2019-11-12 20:02] VITALS: BP 106/67
[2019-11-12] MEDS: FERROUS SULFATE 330 MG/7.5 ML UDC- FOR SA ONLY GT SCH (21:00)
[2019-11-12] MEDS: ATORVASTATIN 10 MG TABLET GT SCH (21:00)
[2019-11-13] MEDS: REFRESH EYE RIGHTEYE SCH ×6 (01:03→21:09)
[2019-11-13] MEDS: POLYVINYL ALCOHOL OPHT DROPS 15 ML BOTTLE EACHEYE SCH ×5 (04:00→20:00)
[2019-11-13] MEDS: LEVOTHYROXINE SODIUM 50 MCG TABLET GT SCH (05:06)
[2019-11-13] MEDS: BLOOD SUGAR DIAGNOSTIC 1 EACH STRIP VI SCH ×3 (05:06→21:13)
[2019-11-13] MEDS: PANTOPRAZOLE ORAL SUSPENSION 40 MG SUSPDR.PKT GT SCH (05:06)
[2019-11-13] MEDS: INSULIN REGULAR, HUMAN 300 UNIT/3 ML VIAL SQ PRN ×3 (05:11→21:16)
[2019-11-13 07:35] VITALS: BP 101/64
[2019-11-13] MEDS: ACIDOPHILUS/BULGARICUS CHEW TAB GT SCH ×2 (08:36→21:09)
[2019-11-13] MEDS: DOCUSATE SODIUM 100 MG/10 ML LIQUID UDC GT SCH ×2 (08:36→21:08)
[2019-11-13] MEDS: COD LIVER OIL/ZINC OXIDE OINT 113 GM TUBE TOP SCH ×2 (08:39→21:11)
[2019-11-13] MEDS: POTASSIUM CHLORIDE 20 MEQ POWDER PACKET GT SCH (08:39)
[2019-11-13] MEDS: INSULIN GLARGINE,HUM 300 UNITS/3 ML CARTRIDGE SQ SCH ×2 (08:42→21:14)
[2019-11-13] MEDS: HYDROGEN PEROXIDE 3% 118 ML BOTTLE TP SCH ×2 (09:10→19:01)
[2019-11-13] MEDS: GLUCERNA 1.2 1000ML LIQUID GT PRN (12:45)
[2019-11-13 19:53] VITALS: BP 129/66
[2019-11-13 19:56] VITALS: BP 104/68
[2019-11-13] MEDS: FERROUS SULFATE 330 MG/7.5 ML UDC- FOR SA ONLY GT SCH (21:09)
[2019-11-13] MEDS: ATORVASTATIN 10 MG TABLET GT SCH (21:09)
[2019-11-14] MEDS: REFRESH EYE RIGHTEYE SCH ×6 (01:00→21:56)
[2019-11-14] MEDS: POLYVINYL ALCOHOL OPHT DROPS 15 ML BOTTLE EACHEYE SCH ×6 (04:00→20:00)
[2019-11-14] MEDS: LEVOTHYROXINE SODIUM 50 MCG TABLET GT SCH (05:12)
[2019-11-14] MEDS: BLOOD SUGAR DIAGNOSTIC 1 EACH STRIP VI SCH ×3 (05:12→22:02)
[2019-11-14] MEDS: PANTOPRAZOLE ORAL SUSPENSION 40 MG SUSPDR.PKT GT SCH (05:12)
[2019-11-14] MEDS: HYDROGEN PEROXIDE 3% 118 ML BOTTLE TP SCH ×2 (07:15→21:28)
[2019-11-14 07:41] VITALS: BP 121/73
[2019-11-14] MEDS: DOCUSATE SODIUM 100 MG/10 ML LIQUID UDC GT SCH ×2 (08:23→21:43)
[2019-11-14] MEDS: ACIDOPHILUS/BULGARICUS CHEW TAB GT SCH ×2 (08:24→21:56)
[2019-11-14] MEDS: POTASSIUM CHLORIDE 20 MEQ POWDER PACKET GT SCH (08:25)
[2019-11-14] MEDS: BISACODYL 10 MG SUPP.RECT RC SCH (08:26)
[2019-11-14] MEDS: INSULIN GLARGINE,HUM 300 UNITS/3 ML CARTRIDGE SQ SCH ×2 (08:31→21:00)
[2019-11-14] MEDS: COD LIVER OIL/ZINC OXIDE OINT 113 GM TUBE TOP SCH ×2 (08:32→21:00)
[2019-11-14] MEDS: INSULIN REGULAR, HUMAN 300 UNIT/3 ML VIAL SQ PRN ×2 (13:32→22:16)
[2019-11-14] MEDS: VALACYCLOVIR HCL 500 MG TABLET GT SCH ×2 (14:59→22:02)
[2019-11-14 19:54] VITALS: BP 108/71
--- NOTE | 2019-11-14 20:19 | NUR ---
Received pt on HT-50 ventilator with the following settings of AC-14, Vt-500, PEEP+5, FIO2-35%, trached with Portex#9 cuffed trach, which is in the place and secure. No respiratory distress noted. Airway care done, pt responded to physical stimuli. HME changed. Resus. bag and back up trach at bedside. PPE used. Vent and alarms checked and reset.
[2019-11-14] MEDS: FERROUS SULFATE 330 MG/7.5 ML UDC- FOR SA ONLY GT SCH (21:44)
[2019-11-14] MEDS: ATORVASTATIN 10 MG TABLET GT SCH (21:56)
[2019-11-15] MEDS: REFRESH EYE RIGHTEYE SCH ×6 (01:00→21:25)
[2019-11-15] MEDS: POLYVINYL ALCOHOL OPHT DROPS 15 ML BOTTLE EACHEYE SCH ×6 (04:00→20:00)
[2019-11-15] MEDS: PANTOPRAZOLE ORAL SUSPENSION 40 MG SUSPDR.PKT GT SCH (05:17)
[2019-11-15] MEDS: LEVOTHYROXINE SODIUM 50 MCG TABLET GT SCH (05:22)
[2019-11-15] MEDS: VALACYCLOVIR HCL 500 MG TABLET GT SCH ×3 (05:22→21:25)
[2019-11-15] MEDS: BLOOD SUGAR DIAGNOSTIC 1 EACH STRIP VI SCH ×3 (05:23→21:26)
[2019-11-15 07:39] VITALS: BP 127/74
[2019-11-15] MEDS: DOCUSATE SODIUM 100 MG/10 ML LIQUID UDC GT SCH ×2 (08:46→21:15)
[2019-11-15] MEDS: POTASSIUM CHLORIDE 20 MEQ POWDER PACKET GT SCH (08:46)
[2019-11-15] MEDS: ACIDOPHILUS/BULGARICUS CHEW TAB GT SCH ×2 (08:46→21:23)
[2019-11-15] MEDS: INSULIN GLARGINE,HUM 300 UNITS/3 ML CARTRIDGE SQ SCH ×2 (08:47→21:37)
[2019-11-15] MEDS: COD LIVER OIL/ZINC OXIDE OINT 113 GM TUBE TOP SCH ×2 (08:47→21:25)
[2019-11-15] MEDS: HYDROGEN PEROXIDE 3% 118 ML BOTTLE TP SCH ×2 (09:33→21:40)
[2019-11-15] MEDS: INSULIN REGULAR, HUMAN 300 UNIT/3 ML VIAL SQ PRN ×2 (13:45→21:31)
--- NOTE | 2019-11-15 17:00 | NUR ---
SEEN BY ANCELMO Jain (I.D) AND WITH NEW ORDER CARRIED OUT.
[2019-11-15] MEDS: FERROUS SULFATE 330 MG/7.5 ML UDC- FOR SA ONLY GT SCH (21:16)
[2019-11-15] MEDS: ATORVASTATIN 10 MG TABLET GT SCH (21:24)
[2019-11-15 22:15] VITALS: BP 105/60
[2019-11-16] MEDS: REFRESH EYE RIGHTEYE SCH ×6 (01:00→21:59)
[2019-11-16] MEDS: POLYVINYL ALCOHOL OPHT DROPS 15 ML BOTTLE EACHEYE SCH ×6 (04:00→20:00)
[2019-11-16] MEDS: LEVOTHYROXINE SODIUM 50 MCG TABLET GT SCH (05:07)
[2019-11-16] MEDS: PANTOPRAZOLE ORAL SUSPENSION 40 MG SUSPDR.PKT GT SCH (05:07)
[2019-11-16] MEDS: VALACYCLOVIR HCL 500 MG TABLET GT SCH ×3 (05:07→22:23)
[2019-11-16] MEDS: BLOOD SUGAR DIAGNOSTIC 1 EACH STRIP VI SCH ×3 (05:07→22:26)
[2019-11-16] MEDS: INSULIN REGULAR, HUMAN 300 UNIT/3 ML VIAL SQ PRN ×3 (05:08→22:28)
[2019-11-16 07:41] VITALS: BP 107/69
[2019-11-16] MEDS: ACIDOPHILUS/BULGARICUS CHEW TAB GT SCH ×2 (08:27→21:59)
[2019-11-16] MEDS: DOCUSATE SODIUM 100 MG/10 ML LIQUID UDC GT SCH ×2 (08:27→21:59)
[2019-11-16] MEDS: BISACODYL 10 MG SUPP.RECT RC SCH (08:27)
[2019-11-16] MEDS: POTASSIUM CHLORIDE 20 MEQ POWDER PACKET GT SCH (08:27)
[2019-11-16] MEDS: INSULIN GLARGINE,HUM 300 UNITS/3 ML CARTRIDGE SQ SCH ×2 (08:29→21:00)
[2019-11-16] MEDS: COD LIVER OIL/ZINC OXIDE OINT 113 GM TUBE TOP SCH ×2 (08:29→21:59)
[2019-11-16] MEDS: HYDROGEN PEROXIDE 3% 118 ML BOTTLE TP SCH ×2 (09:02→21:15)
--- NOTE | 2019-11-16 17:00 | NUR ---
SEEN BY DR. PADGETT AND WITH NNO.
--- NOTE | 2019-11-16 20:33 | NUR ---
Pt received on HT-50 ventilator with the following settings of AC-14, Vt-500, PEEP+5, FIO2-35%, trached with Portex#9 cuffed trach, which is in the place and secure. No distress noted. Airway care done, pt responded to physical stimuli. HME changed. Resus. bag and back up trach at bedside. PPE used. Vent and alarms checked and reset.
[2019-11-16] MEDS: DOXYCYCLINE HYCLATE 100 MG TABLET GT SCH (21:00)
[2019-11-16] MEDS: FERROUS SULFATE 330 MG/7.5 ML UDC- FOR SA ONLY GT SCH (21:59)
[2019-11-16] MEDS: ATORVASTATIN 10 MG TABLET GT SCH (21:59)
--- NOTE | 2019-11-16 22:00 | NUR ---
Afebrile, on Valtrex via gt for shingles rashes on left chest,left abdomen and left leg, no adverse reactions noted. On Doxycycline via gt for folliculitis, no adverse reactions noted. Good skin care done, kept clean and comfortable.
[2019-11-16 22:59] VITALS: BP 111/69
--- NOTE | 2019-11-17 00:05 | NUR ---
Change GT site care to wash with soap and water and cover with dry dressing daily.
[2019-11-17] MEDS: POLYVINYL ALCOHOL OPHT DROPS 15 ML BOTTLE EACHEYE SCH ×6 (00:20→20:00)
[2019-11-17] MEDS: REFRESH EYE RIGHTEYE SCH ×6 (01:20→21:32)
[2019-11-17] MEDS: PANTOPRAZOLE ORAL SUSPENSION 40 MG SUSPDR.PKT GT SCH (05:39)
[2019-11-17] MEDS: LEVOTHYROXINE SODIUM 50 MCG TABLET GT SCH (05:40)
[2019-11-17] MEDS: VALACYCLOVIR HCL 500 MG TABLET GT SCH ×3 (05:40→21:33)
[2019-11-17] MEDS: BLOOD SUGAR DIAGNOSTIC 1 EACH STRIP VI SCH ×3 (06:09→21:33)
[2019-11-17] MEDS: INSULIN REGULAR, HUMAN 300 UNIT/3 ML VIAL SQ PRN ×3 (06:11→21:34)
[2019-11-17 07:38] VITALS: BP 107/49
[2019-11-17] MEDS: INSULIN GLARGINE,HUM 300 UNITS/3 ML CARTRIDGE SQ SCH ×2 (08:45→21:33)
[2019-11-17] MEDS: POTASSIUM CHLORIDE 20 MEQ POWDER PACKET GT SCH (08:45)
[2019-11-17] MEDS: ACIDOPHILUS/BULGARICUS CHEW TAB GT SCH ×2 (08:45→21:32)
[2019-11-17] MEDS: COD LIVER OIL/ZINC OXIDE OINT 113 GM TUBE TOP SCH ×2 (08:45→21:33)
[2019-11-17] MEDS: DOCUSATE SODIUM 100 MG/10 ML LIQUID UDC GT SCH ×2 (08:45→21:32)
[2019-11-17] MEDS: DOXYCYCLINE HYCLATE 100 MG TABLET GT SCH ×2 (08:45→21:32)
[2019-11-17] MEDS: HYDROGEN PEROXIDE 3% 118 ML BOTTLE TP SCH ×2 (09:00→21:04)
--- NOTE | 2019-11-17 17:00 | NUR ---
SEEN BY ANCELMO Jain (I.D ) AND WITH [place].
--- NOTE | 2019-11-17 20:25 | NUR ---
PT REMAIN ON CONTINUOUS VENT, TRACH CARE DONE. BELLO CHANGED. TRACH IN PLACED AND SECURED WITH TRACH TIE. BACK UP TRACH AND AMBU BAG AT BEDSIDE. SUCTION PRN. VENT CHECKED, ALARMS WORKING WELL AND AUDIBLE. NO DISTRESS NOTED AT THIS TIME. WILL CONTINUE TO MONITOR.
[2019-11-17] MEDS: FERROUS SULFATE 330 MG/7.5 ML UDC- FOR SA ONLY GT SCH (21:32)
[2019-11-17] MEDS: ATORVASTATIN 10 MG TABLET GT SCH (21:32)
[2019-11-17] MEDS: COD LIVER OIL/ZINC OXIDE OINT 113 GM TUBE TOP PRN (21:34)
--- NOTE | 2019-11-17 22:01 | NUR ---
Afebrile, on contact isolation for shingles, on Valtrex via gt for shingles rashes on left chest,left abdomen and left leg, no adverse reactions noted. On Doxycycline via gt for folliculitis, no adverse reactions noted. Good skin care done, kept clean and comfortable.
[2019-11-17 22:28] VITALS: BP 114/71
[2019-11-18] MEDS: REFRESH EYE RIGHTEYE SCH ×6 (01:00→21:11)
[2019-11-18] MEDS: POLYVINYL ALCOHOL OPHT DROPS 15 ML BOTTLE EACHEYE SCH ×6 (04:00→20:00)
[2019-11-18] MEDS: GLUCERNA 1.2 1000ML LIQUID GT PRN (05:20)
[2019-11-18] MEDS: PANTOPRAZOLE ORAL SUSPENSION 40 MG SUSPDR.PKT GT SCH (05:20)
[2019-11-18] MEDS: VALACYCLOVIR HCL 500 MG TABLET GT SCH ×3 (05:20→21:12)
[2019-11-18] MEDS: LEVOTHYROXINE SODIUM 50 MCG TABLET GT SCH (05:20)
[2019-11-18] MEDS: BLOOD SUGAR DIAGNOSTIC 1 EACH STRIP VI SCH ×3 (05:20→21:19)
[2019-11-18] MEDS: INSULIN REGULAR, HUMAN 300 UNIT/3 ML VIAL SQ PRN ×3 (05:21→21:20)
[2019-11-18] MEDS: HYDROGEN PEROXIDE 3% 118 ML BOTTLE TP SCH ×2 (07:16→19:22)
[2019-11-18 07:46] VITALS: BP 99/53
[2019-11-18] MEDS: DOCUSATE SODIUM 100 MG/10 ML LIQUID UDC GT SCH ×2 (08:45→21:09)
[2019-11-18] MEDS: POTASSIUM CHLORIDE 20 MEQ POWDER PACKET GT SCH (08:45)
[2019-11-18] MEDS: ACIDOPHILUS/BULGARICUS CHEW TAB GT SCH ×2 (08:45→21:09)
[2019-11-18] MEDS: BISACODYL 10 MG SUPP.RECT RC SCH (08:45)
[2019-11-18] MEDS: DOXYCYCLINE HYCLATE 100 MG TABLET GT SCH ×2 (08:45→21:11)
[2019-11-18] MEDS: COD LIVER OIL/ZINC OXIDE OINT 113 GM TUBE TOP SCH ×2 (08:47→21:12)
[2019-11-18] MEDS: INSULIN GLARGINE,HUM 300 UNITS/3 ML CARTRIDGE SQ SCH ×2 (08:47→21:18)
[2019-11-18] MEDS: ATORVASTATIN 10 MG TABLET GT SCH (21:09)
[2019-11-18] MEDS: FERROUS SULFATE 330 MG/7.5 ML UDC- FOR SA ONLY GT SCH (21:09)
[2019-11-18 22:51] VITALS: BP 121/69
[2019-11-19] MEDS: REFRESH EYE RIGHTEYE SCH ×6 (01:28→21:00)
[2019-11-19] MEDS: POLYVINYL ALCOHOL OPHT DROPS 15 ML BOTTLE EACHEYE SCH ×6 (04:00→20:00)
[2019-11-19] MEDS: BLOOD SUGAR DIAGNOSTIC 1 EACH STRIP VI SCH ×3 (05:10→22:19)
[2019-11-19] MEDS: PANTOPRAZOLE ORAL SUSPENSION 40 MG SUSPDR.PKT GT SCH (05:16)
[2019-11-19] MEDS: VALACYCLOVIR HCL 500 MG TABLET GT SCH ×3 (05:17→22:02)
[2019-11-19] MEDS: LEVOTHYROXINE SODIUM 50 MCG TABLET GT SCH (05:18)
[2019-11-19] MEDS: INSULIN REGULAR, HUMAN 300 UNIT/3 ML VIAL SQ PRN ×3 (05:31→22:24)
[2019-11-19] MEDS: GLUCERNA 1.2 1000ML LIQUID GT PRN (07:07)
[2019-11-19 07:36] VITALS: BP 98/55
[2019-11-19] MEDS: POTASSIUM CHLORIDE 20 MEQ POWDER PACKET GT SCH (08:47)
[2019-11-19] MEDS: DOCUSATE SODIUM 100 MG/10 ML LIQUID UDC GT SCH ×2 (08:47→21:00)
[2019-11-19] MEDS: ACIDOPHILUS/BULGARICUS CHEW TAB GT SCH ×2 (08:47→21:00)
[2019-11-19] MEDS: DOXYCYCLINE HYCLATE 100 MG TABLET GT SCH (08:48)
[2019-11-19] MEDS: COD LIVER OIL/ZINC OXIDE OINT 113 GM TUBE TOP SCH ×2 (08:50→21:00)
[2019-11-19] MEDS: INSULIN GLARGINE,HUM 300 UNITS/3 ML CARTRIDGE SQ SCH ×2 (08:50→21:00)
[2019-11-19] MEDS: HYDROGEN PEROXIDE 3% 118 ML BOTTLE TP SCH ×2 (09:15→21:15)
--- NOTE | 2019-11-19 11:28 | NUR ---
SEEN AND EXAMINED BY DR. PADGETT AND ANAID Maguire AND WITH NNO.
--- NOTE | 2019-11-19 11:53 | NUR ---
SEEN BY DR. PADGETT AND ADOLFO SINGH AND WITH NNO.
[2019-11-19 20:09] VITALS: BP 107/63
[2019-11-19] MEDS: FERROUS SULFATE 330 MG/7.5 ML UDC- FOR SA ONLY GT SCH (21:00)
[2019-11-19] MEDS: ATORVASTATIN 10 MG TABLET GT SCH (21:00)
[2019-11-20] MEDS: POLYVINYL ALCOHOL OPHT DROPS 15 ML BOTTLE EACHEYE SCH ×6 (00:40→20:00)
[2019-11-20] MEDS: REFRESH EYE RIGHTEYE SCH ×6 (01:24→21:30)
[2019-11-20] MEDS: BLOOD SUGAR DIAGNOSTIC 1 EACH STRIP VI SCH ×3 (05:19→22:47)
[2019-11-20] MEDS: INSULIN REGULAR, HUMAN 300 UNIT/3 ML VIAL SQ PRN ×3 (05:20→22:49)
[2019-11-20] MEDS: PANTOPRAZOLE ORAL SUSPENSION 40 MG SUSPDR.PKT GT SCH (05:22)
[2019-11-20] MEDS: VALACYCLOVIR HCL 500 MG TABLET GT SCH ×3 (05:23→21:31)
[2019-11-20] MEDS: LEVOTHYROXINE SODIUM 50 MCG TABLET GT SCH (05:23)
[2019-11-20 07:43] VITALS: BP 104/82
[2019-11-20] MEDS: HYDROGEN PEROXIDE 3% 118 ML BOTTLE TP SCH ×2 (08:06→21:42)
[2019-11-20] MEDS: POTASSIUM CHLORIDE 20 MEQ POWDER PACKET GT SCH (08:35)
[2019-11-20] MEDS: DOCUSATE SODIUM 100 MG/10 ML LIQUID UDC GT SCH ×2 (08:35→21:29)
[2019-11-20] MEDS: ACIDOPHILUS/BULGARICUS CHEW TAB GT SCH ×2 (08:35→21:29)
[2019-11-20] MEDS: BISACODYL 10 MG SUPP.RECT RC SCH (08:36)
[2019-11-20] MEDS: COD LIVER OIL/ZINC OXIDE OINT 113 GM TUBE TOP SCH ×2 (08:37→21:31)
[2019-11-20] MEDS: INSULIN GLARGINE,HUM 300 UNITS/3 ML CARTRIDGE SQ SCH ×2 (08:38→21:39)
[2019-11-20 20:15] VITALS: BP 111/79
--- NOTE | 2019-11-20 20:24 | NUR ---
Pt received on HT-50 ventilator with the following settings of AC-14, Vt-500, PEEP+5, FIO2-35%, trached with Portex#9 cuffed trach, which is in the place and secure. No SOB noted. Airway care done, pt responded to physical stimuli. HME changed. Resus. bag and back up trach at bedside. PPE used. Vent and alarms checked and reset.
[2019-11-20] MEDS: FERROUS SULFATE 330 MG/7.5 ML UDC- FOR SA ONLY GT SCH (21:29)
[2019-11-20] MEDS: ATORVASTATIN 10 MG TABLET GT SCH (21:30)
--- NOTE | 2019-11-20 21:30 | NUR ---
SEEN BY TAZ LEAF BLENDER WITH NEW ORDER D/C CONTACT ISOLATION AND D/C VATTREX NOTED.
[2019-11-21] MEDS: POLYVINYL ALCOHOL OPHT DROPS 15 ML BOTTLE EACHEYE SCH ×7 (00:49→23:58)
[2019-11-21] MEDS: REFRESH EYE RIGHTEYE SCH ×6 (01:28→21:19)
[2019-11-21] MEDS: GLUCERNA 1.2 1000ML LIQUID GT PRN (02:10)
[2019-11-21] MEDS: BLOOD SUGAR DIAGNOSTIC 1 EACH STRIP VI SCH ×3 (05:04→21:26)
[2019-11-21] MEDS: LEVOTHYROXINE SODIUM 50 MCG TABLET GT SCH (05:04)
[2019-11-21] MEDS: PANTOPRAZOLE ORAL SUSPENSION 40 MG SUSPDR.PKT GT SCH (05:04)
[2019-11-21] MEDS: INSULIN REGULAR, HUMAN 300 UNIT/3 ML VIAL SQ PRN ×2 (05:20→14:08)
[2019-11-21 07:46] VITALS: BP 132/84
[2019-11-21] MEDS: HYDROGEN PEROXIDE 3% 118 ML BOTTLE TP SCH ×2 (08:05→21:42)
[2019-11-21] MEDS: ACIDOPHILUS/BULGARICUS CHEW TAB GT SCH ×2 (09:20→21:17)
[2019-11-21] MEDS: DOCUSATE SODIUM 100 MG/10 ML LIQUID UDC GT SCH ×2 (09:20→21:47)
[2019-11-21] MEDS: POTASSIUM CHLORIDE 20 MEQ POWDER PACKET GT SCH (09:25)
[2019-11-21] MEDS: COD LIVER OIL/ZINC OXIDE OINT 113 GM TUBE TOP SCH ×2 (09:30→21:20)
[2019-11-21] MEDS: INSULIN GLARGINE,HUM 300 UNITS/3 ML CARTRIDGE SQ SCH ×2 (09:36→21:36)
[2019-11-21 20:05] VITALS: BP 138/84
[2019-11-21] MEDS: FERROUS SULFATE 330 MG/7.5 ML UDC- FOR SA ONLY GT SCH (21:17)
[2019-11-21] MEDS: ATORVASTATIN 10 MG TABLET GT SCH (21:19)
[2019-11-22] MEDS: REFRESH EYE RIGHTEYE SCH ×6 (01:16→21:35)
[2019-11-22] MEDS: POLYVINYL ALCOHOL OPHT DROPS 15 ML BOTTLE EACHEYE SCH ×6 (04:19→23:17)
[2019-11-22] MEDS: PANTOPRAZOLE ORAL SUSPENSION 40 MG SUSPDR.PKT GT SCH (05:04)
[2019-11-22] MEDS: BLOOD SUGAR DIAGNOSTIC 1 EACH STRIP VI SCH ×3 (05:07→21:46)
[2019-11-22] MEDS: LEVOTHYROXINE SODIUM 50 MCG TABLET GT SCH (05:07)
[2019-11-22] MEDS: INSULIN REGULAR, HUMAN 300 UNIT/3 ML VIAL SQ PRN ×3 (05:10→21:51)
[2019-11-22] MEDS: HYDROGEN PEROXIDE 3% 118 ML BOTTLE TP SCH ×2 (07:20→21:34)
[2019-11-22 07:40] VITALS: BP 110/64
[2019-11-22] MEDS: DOCUSATE SODIUM 100 MG/10 ML LIQUID UDC GT SCH ×2 (08:30→21:34)
[2019-11-22] MEDS: ACIDOPHILUS/BULGARICUS CHEW TAB GT SCH ×2 (08:32→21:35)
[2019-11-22] MEDS: POTASSIUM CHLORIDE 20 MEQ POWDER PACKET GT SCH (08:32)
[2019-11-22] MEDS: BISACODYL 10 MG SUPP.RECT RC SCH (08:33)
[2019-11-22] MEDS: INSULIN GLARGINE,HUM 300 UNITS/3 ML CARTRIDGE SQ SCH ×2 (08:35→18:13)
[2019-11-22] MEDS: COD LIVER OIL/ZINC OXIDE OINT 113 GM TUBE TOP SCH ×2 (08:35→21:35)
[2019-11-22 21:05] VITALS: BP 128/73
[2019-11-22] MEDS: FERROUS SULFATE 330 MG/7.5 ML UDC- FOR SA ONLY GT SCH (21:34)
[2019-11-22] MEDS: ATORVASTATIN 10 MG TABLET GT SCH (21:35)
[2019-11-22] MEDS: GLUCERNA 1.2 1000ML LIQUID GT PRN (23:00)
[2019-11-23] MEDS: REFRESH EYE RIGHTEYE SCH ×6 (00:42→21:04)
[2019-11-23] MEDS: POLYVINYL ALCOHOL OPHT DROPS 15 ML BOTTLE EACHEYE SCH ×5 (04:01→20:00)
[2019-11-23] MEDS: LEVOTHYROXINE SODIUM 50 MCG TABLET GT SCH (05:01)
[2019-11-23] MEDS: BLOOD SUGAR DIAGNOSTIC 1 EACH STRIP VI SCH ×3 (05:01→21:39)
[2019-11-23] MEDS: PANTOPRAZOLE ORAL SUSPENSION 40 MG SUSPDR.PKT GT SCH (05:01)
[2019-11-23] MEDS: INSULIN GLARGINE,HUM 300 UNITS/3 ML CARTRIDGE SQ SCH ×2 (05:02→17:23)
[2019-11-23] MEDS: INSULIN REGULAR, HUMAN 300 UNIT/3 ML VIAL SQ PRN ×3 (05:03→21:40)
[2019-11-23 07:42] VITALS: BP 95/62
[2019-11-23] MEDS: DOCUSATE SODIUM 100 MG/10 ML LIQUID UDC GT SCH ×2 (08:06→21:04)
[2019-11-23] MEDS: ACIDOPHILUS/BULGARICUS CHEW TAB GT SCH ×2 (08:06→21:04)
[2019-11-23] MEDS: POTASSIUM CHLORIDE 20 MEQ POWDER PACKET GT SCH (08:06)
[2019-11-23] MEDS: COD LIVER OIL/ZINC OXIDE OINT 113 GM TUBE TOP SCH ×2 (08:07→21:04)
[2019-11-23] MEDS: HYDROGEN PEROXIDE 3% 118 ML BOTTLE TP SCH ×2 (09:00→21:14)
[2019-11-23] MEDS: FERROUS SULFATE 330 MG/7.5 ML UDC- FOR SA ONLY GT SCH (21:04)
[2019-11-23] MEDS: ATORVASTATIN 10 MG TABLET GT SCH (21:04)
[2019-11-23] MEDS: GLUCERNA 1.2 1000ML LIQUID GT PRN (21:41)
[2019-11-23 22:00] VITALS: BP 140/79
[2019-11-24] MEDS: POLYVINYL ALCOHOL OPHT DROPS 15 ML BOTTLE EACHEYE SCH ×6 (00:37→20:00)
[2019-11-24] MEDS: REFRESH EYE RIGHTEYE SCH ×6 (00:37→21:46)
[2019-11-24] MEDS: PANTOPRAZOLE ORAL SUSPENSION 40 MG SUSPDR.PKT GT SCH (05:02)
[2019-11-24] MEDS: LEVOTHYROXINE SODIUM 50 MCG TABLET GT SCH (05:02)
[2019-11-24] MEDS: BLOOD SUGAR DIAGNOSTIC 1 EACH STRIP VI SCH ×3 (05:02→21:49)
[2019-11-24] MEDS: INSULIN GLARGINE,HUM 300 UNITS/3 ML CARTRIDGE SQ SCH ×2 (05:10→17:39)
[2019-11-24] MEDS: INSULIN REGULAR, HUMAN 300 UNIT/3 ML VIAL SQ PRN ×3 (05:12→21:57)
[2019-11-24] MEDS: HYDROGEN PEROXIDE 3% 118 ML BOTTLE TP SCH ×2 (07:40→19:05)
[2019-11-24 08:00] VITALS: BP 112/65
[2019-11-24] MEDS: DOCUSATE SODIUM 100 MG/10 ML LIQUID UDC GT SCH ×2 (09:00→21:46)
[2019-11-24] MEDS: ACIDOPHILUS/BULGARICUS CHEW TAB GT SCH ×2 (09:02→21:46)
[2019-11-24] MEDS: POTASSIUM CHLORIDE 20 MEQ POWDER PACKET GT SCH (09:02)
[2019-11-24] MEDS: BISACODYL 10 MG SUPP.RECT RC SCH (09:04)
[2019-11-24] MEDS: COD LIVER OIL/ZINC OXIDE OINT 113 GM TUBE TOP SCH ×2 (09:04→21:46)
[2019-11-24] MEDS: GLUCERNA 1.2 1000ML LIQUID GT PRN (17:46)
[2019-11-24 20:10] VITALS: BP 111/66
[2019-11-24] MEDS: ATORVASTATIN 10 MG TABLET GT SCH (21:46)
[2019-11-24] MEDS: FERROUS SULFATE 330 MG/7.5 ML UDC- FOR SA ONLY GT SCH (21:46)
[2019-11-25] MEDS: REFRESH EYE RIGHTEYE SCH ×6 (00:43→21:37)
[2019-11-25] MEDS: POLYVINYL ALCOHOL OPHT DROPS 15 ML BOTTLE EACHEYE SCH ×6 (00:43→20:56)
[2019-11-25] MEDS: BLOOD SUGAR DIAGNOSTIC 1 EACH STRIP VI SCH ×3 (05:24→22:21)
[2019-11-25] MEDS: LEVOTHYROXINE SODIUM 50 MCG TABLET GT SCH (05:24)
[2019-11-25] MEDS: PANTOPRAZOLE ORAL SUSPENSION 40 MG SUSPDR.PKT GT SCH (05:24)
[2019-11-25] MEDS: INSULIN GLARGINE,HUM 300 UNITS/3 ML CARTRIDGE SQ SCH ×2 (05:28→17:01)
[2019-11-25] MEDS: INSULIN REGULAR, HUMAN 300 UNIT/3 ML VIAL SQ PRN ×3 (05:29→22:23)
[2019-11-25 07:42] VITALS: BP 125/69
[2019-11-25] MEDS: COD LIVER OIL/ZINC OXIDE OINT 113 GM TUBE TOP SCH ×2 (08:41→21:37)
[2019-11-25] MEDS: ACIDOPHILUS/BULGARICUS CHEW TAB GT SCH ×2 (08:41→21:37)
[2019-11-25] MEDS: POTASSIUM CHLORIDE 20 MEQ POWDER PACKET GT SCH (08:41)
[2019-11-25] MEDS: DOCUSATE SODIUM 100 MG/10 ML LIQUID UDC GT SCH ×2 (08:41→21:37)
[2019-11-25] MEDS: HYDROGEN PEROXIDE 3% 118 ML BOTTLE TP SCH ×2 (09:33→18:46)
--- NOTE | 2019-11-25 16:23 | NUR ---
Covid19 test done.
[2019-11-25] MEDS: GLUCERNA 1.2 1000ML LIQUID GT PRN (17:00)
[2019-11-25 20:16] VITALS: BP 110/65
[2019-11-25] MEDS: FERROUS SULFATE 330 MG/7.5 ML UDC- FOR SA ONLY GT SCH (21:37)
[2019-11-25] MEDS: ATORVASTATIN 10 MG TABLET GT SCH (21:37)
[2019-11-26] MEDS: POLYVINYL ALCOHOL OPHT DROPS 15 ML BOTTLE EACHEYE SCH ×6 (00:08→20:32)
[2019-11-26] MEDS: REFRESH EYE RIGHTEYE SCH ×6 (01:27→21:50)
[2019-11-26] MEDS: LEVOTHYROXINE SODIUM 50 MCG TABLET GT SCH (05:44)
[2019-11-26] MEDS: PANTOPRAZOLE ORAL SUSPENSION 40 MG SUSPDR.PKT GT SCH (05:44)
[2019-11-26] MEDS: BLOOD SUGAR DIAGNOSTIC 1 EACH STRIP VI SCH ×3 (05:45→22:24)
[2019-11-26] MEDS: INSULIN GLARGINE,HUM 300 UNITS/3 ML CARTRIDGE SQ SCH ×2 (05:47→17:41)
[2019-11-26] MEDS: INSULIN REGULAR, HUMAN 300 UNIT/3 ML VIAL SQ PRN ×3 (05:48→22:26)
[2019-11-26 07:25] VITALS: BP 148/81
[2019-11-26] MEDS: ACIDOPHILUS/BULGARICUS CHEW TAB GT SCH ×2 (08:23→21:50)
[2019-11-26] MEDS: COD LIVER OIL/ZINC OXIDE OINT 113 GM TUBE TOP SCH ×2 (08:23→21:50)
[2019-11-26] MEDS: BISACODYL 10 MG SUPP.RECT RC SCH (08:23)
[2019-11-26] MEDS: DOCUSATE SODIUM 100 MG/10 ML LIQUID UDC GT SCH ×2 (08:24→21:50)
[2019-11-26] MEDS: POTASSIUM CHLORIDE 20 MEQ POWDER PACKET GT SCH (08:26)
[2019-11-26] MEDS: HYDROGEN PEROXIDE 3% 118 ML BOTTLE TP SCH ×2 (09:17→21:17)
--- NOTE | 2019-11-26 15:28 | NUR ---
UNABLE TO LEAVE MESSAGE FOR TRIP VALERO TO CALL BACK IN ORDER TO INFORM OF COVID-19 POSSIBLE EXPOSURE AND TESTING PLAN FOR CURRENT AND NEXT WEEK MANDATED.
[2019-11-26] MEDS: GLUCERNA 1.2 1000ML LIQUID GT PRN (17:48)
[2019-11-26 20:46] VITALS: BP 138/80
[2019-11-26] MEDS: FERROUS SULFATE 330 MG/7.5 ML UDC- FOR SA ONLY GT SCH (21:50)
[2019-11-26] MEDS: ATORVASTATIN 10 MG TABLET GT SCH (21:50)
[2019-11-27] MEDS: POLYVINYL ALCOHOL OPHT DROPS 15 ML BOTTLE EACHEYE SCH ×7 (00:53→23:33)
[2019-11-27] MEDS: REFRESH EYE RIGHTEYE SCH ×6 (01:52→20:48)
[2019-11-27] MEDS: PANTOPRAZOLE ORAL SUSPENSION 40 MG SUSPDR.PKT GT SCH (06:01)
[2019-11-27] MEDS: LEVOTHYROXINE SODIUM 50 MCG TABLET GT SCH (06:01)
[2019-11-27] MEDS: BLOOD SUGAR DIAGNOSTIC 1 EACH STRIP VI SCH ×3 (06:01→21:46)
[2019-11-27] MEDS: INSULIN GLARGINE,HUM 300 UNITS/3 ML CARTRIDGE SQ SCH ×2 (06:14→17:17)
[2019-11-27] MEDS: INSULIN REGULAR, HUMAN 300 UNIT/3 ML VIAL SQ PRN ×3 (06:16→21:48)
[2019-11-27 08:01] VITALS: BP 114/66
[2019-11-27] MEDS: HYDROGEN PEROXIDE 3% 118 ML BOTTLE TP SCH ×2 (09:00→21:43)
[2019-11-27] MEDS: DOCUSATE SODIUM 100 MG/10 ML LIQUID UDC GT SCH ×2 (09:21→20:48)
[2019-11-27] MEDS: ACIDOPHILUS/BULGARICUS CHEW TAB GT SCH ×2 (09:21→20:48)
[2019-11-27] MEDS: POTASSIUM CHLORIDE 20 MEQ POWDER PACKET GT SCH (09:22)
[2019-11-27] MEDS: COD LIVER OIL/ZINC OXIDE OINT 113 GM TUBE TOP SCH ×2 (09:22→20:48)
[2019-11-27] MEDS: GLUCERNA 1.2 1000ML LIQUID GT PRN (17:17)
[2019-11-27 20:23] VITALS: BP 110/72
[2019-11-27] MEDS: ATORVASTATIN 10 MG TABLET GT SCH (20:48)
[2019-11-27] MEDS: FERROUS SULFATE 330 MG/7.5 ML UDC- FOR SA ONLY GT SCH (20:48)
[2019-11-28] MEDS: REFRESH EYE RIGHTEYE SCH ×6 (00:59→20:53)
[2019-11-28] MEDS: POLYVINYL ALCOHOL OPHT DROPS 15 ML BOTTLE EACHEYE SCH ×5 (04:00→20:50)
[2019-11-28] MEDS: BLOOD SUGAR DIAGNOSTIC 1 EACH STRIP VI SCH ×3 (05:39→21:51)
[2019-11-28] MEDS: PANTOPRAZOLE ORAL SUSPENSION 40 MG SUSPDR.PKT GT SCH (05:41)
[2019-11-28] MEDS: LEVOTHYROXINE SODIUM 50 MCG TABLET GT SCH (05:41)
[2019-11-28] MEDS: INSULIN GLARGINE,HUM 300 UNITS/3 ML CARTRIDGE SQ SCH ×2 (05:43→17:41)
[2019-11-28] MEDS: INSULIN REGULAR, HUMAN 300 UNIT/3 ML VIAL SQ PRN ×3 (05:45→21:52)
[2019-11-28 07:41] VITALS: BP 146/89
[2019-11-28] MEDS: HYDROGEN PEROXIDE 3% 118 ML BOTTLE TP SCH ×2 (09:18→18:50)
[2019-11-28] MEDS: DOCUSATE SODIUM 100 MG/10 ML LIQUID UDC GT SCH ×2 (09:25→20:50)
[2019-11-28] MEDS: ACIDOPHILUS/BULGARICUS CHEW TAB GT SCH ×2 (09:26→20:52)
[2019-11-28] MEDS: BISACODYL 10 MG SUPP.RECT RC SCH (09:39)
[2019-11-28] MEDS: COD LIVER OIL/ZINC OXIDE OINT 113 GM TUBE TOP SCH ×2 (09:39→20:53)
[2019-11-28] MEDS: POTASSIUM CHLORIDE 20 MEQ POWDER PACKET GT SCH (09:42)
--- NOTE | 2019-11-28 16:00 | NUR ---
Hu Adair's daughter notified the Covid 19 result is negative.
[2019-11-28 20:00] VITALS: BP 108/76
[2019-11-28] MEDS: ATORVASTATIN 10 MG TABLET GT SCH (20:52)
[2019-11-28] MEDS: FERROUS SULFATE 330 MG/7.5 ML UDC- FOR SA ONLY GT SCH (20:52)
[2019-11-29] MEDS: POLYVINYL ALCOHOL OPHT DROPS 15 ML BOTTLE EACHEYE SCH ×6 (00:45→20:48)
[2019-11-29] MEDS: REFRESH EYE RIGHTEYE SCH ×6 (01:37→20:51)
[2019-11-29] MEDS: LEVOTHYROXINE SODIUM 50 MCG TABLET GT SCH (05:18)
[2019-11-29] MEDS: PANTOPRAZOLE ORAL SUSPENSION 40 MG SUSPDR.PKT GT SCH (05:18)
[2019-11-29] MEDS: INSULIN GLARGINE,HUM 300 UNITS/3 ML CARTRIDGE SQ SCH ×2 (05:19→17:24)
[2019-11-29] MEDS: BLOOD SUGAR DIAGNOSTIC 1 EACH STRIP VI SCH ×3 (05:20→22:19)
[2019-11-29] MEDS: INSULIN REGULAR, HUMAN 300 UNIT/3 ML VIAL SQ PRN ×3 (05:21→22:23)
[2019-11-29 07:44] VITALS: BP 134/80
[2019-11-29] MEDS: DOCUSATE SODIUM 100 MG/10 ML LIQUID UDC GT SCH ×2 (08:08→20:48)
[2019-11-29] MEDS: ACIDOPHILUS/BULGARICUS CHEW TAB GT SCH ×2 (08:08→20:49)
[2019-11-29] MEDS: POTASSIUM CHLORIDE 20 MEQ POWDER PACKET GT SCH (08:09)
[2019-11-29] MEDS: COD LIVER OIL/ZINC OXIDE OINT 113 GM TUBE TOP SCH ×2 (08:10→20:51)
[2019-11-29] MEDS: HYDROGEN PEROXIDE 3% 118 ML BOTTLE TP SCH ×2 (09:00→18:45)
[2019-11-29] MEDS: GLUCERNA 1.2 1000ML LIQUID GT PRN (14:45)
--- NOTE | 2019-11-29 15:00 | NUR ---
SEEN BY ANCELMO Jain 9I.D) AND WITH SARYO.
--- NOTE | 2019-11-29 17:06 | NUR ---
PT. WAS EXAMINED BY DR. CARVER AND WITH NEW ORDERS NOTIFIED TO PT'S DTR. TRIP AND IN AGREEMENT TO PROCEED FOR A CT SCAN OF NECK WITH AND WITHOUT CONTRAST,PT'S DTR. AWARE OF RISKS AND NOT RECALLING PT. HAVING CONTRAST BEFORE OR ANY ALLERGIES .
[2019-11-29 17:38] LABS: BASOPHILS % (AUTO) 0.3 % (0.0-2.0); EOSINOPHILS # (AUTO) 0.1 K/uL (0.0-0.7); EOSINOPHILS % (AUTO) 1.4 % (0.0-7.0); HEMOGLOBIN 11.6 g/dL (12.5-16.3); LYMPHOCYTES # (AUTO) 1.3 K/uL (20.0-40.0); LYMPHOCYTES % (AUTO) 12.5 % (20.5-51.5); MEAN CORPUSCULAR HEMOGLOBIN 27.8 uug (23.8-33.4); MEAN CORPUSCULAR HGB CONC 32 g/dL (32.5-36.3); MEAN CORPUSCULAR VOLUME 86.6 fL (73.0-96.2); MONOCYTES # (AUTO) 0.6 K/uL (2.0-10.0); MONOCYTES % (AUTO) 6.2 % (0.0-11.0); NEUTROPHILS # (AUTO) 8.2 K/uL (1.8-8.9); NEUTROPHILS % (AUTO) 79.6 % (38.5-71.5); PLATELET COUNT (AUTO) 245 K/uL (152-348); RED BLOOD CELL COUNT(AUTO) 4.16 MIL/uL (4.06-5.63); WHITE BLOOD COUNT (AUTO) 10.2 K/uL (3.6-10.2)
[2019-11-29 17:48] LABS: CREATININE 0.7 mg/dL (0.6-1.3); POTASSIUM 4.3 mmol/L (3.5-5.1)
--- NOTE | 2019-11-29 18:00 | NUR ---
Consent for ct scan of neck with and without contrast given to 2 nurses from pt's dtr. Adair.
[2019-11-29 20:00] VITALS: BP 109/66
[2019-11-29] MEDS: ATORVASTATIN 10 MG TABLET GT SCH (20:49)
[2019-11-29] MEDS: FERROUS SULFATE 330 MG/7.5 ML UDC- FOR SA ONLY GT SCH (20:49)
[2019-11-30] MEDS: POLYVINYL ALCOHOL OPHT DROPS 15 ML BOTTLE EACHEYE SCH ×7 (00:33→23:19)
[2019-11-30] MEDS: REFRESH EYE RIGHTEYE SCH ×6 (01:00→21:06)
[2019-11-30] MEDS: LEVOTHYROXINE SODIUM 50 MCG TABLET GT SCH (06:05)
[2019-11-30] MEDS: PANTOPRAZOLE ORAL SUSPENSION 40 MG SUSPDR.PKT GT SCH (06:05)
[2019-11-30] MEDS: INSULIN GLARGINE,HUM 300 UNITS/3 ML CARTRIDGE SQ SCH ×2 (06:06→17:35)
[2019-11-30] MEDS: BLOOD SUGAR DIAGNOSTIC 1 EACH STRIP VI SCH ×3 (06:06→21:06)
[2019-11-30] MEDS: INSULIN REGULAR, HUMAN 300 UNIT/3 ML VIAL SQ PRN ×3 (06:07→21:05)
[2019-11-30 07:29] VITALS: BP 123/77
--- NOTE | 2019-11-30 08:30 | NUR ---
Pt out of floor scheduled for ct scan as ordered.
[2019-11-30] MEDS: HYDROGEN PEROXIDE 3% 118 ML BOTTLE TP SCH ×2 (09:00→21:31)
[2019-11-30] MEDS: DOCUSATE SODIUM 100 MG/10 ML LIQUID UDC GT SCH ×2 (09:23→20:26)
[2019-11-30] MEDS: POTASSIUM CHLORIDE 20 MEQ POWDER PACKET GT SCH (09:24)
[2019-11-30] MEDS: BISACODYL 10 MG SUPP.RECT RC SCH (09:24)
[2019-11-30] MEDS: ACIDOPHILUS/BULGARICUS CHEW TAB GT SCH ×2 (09:24→20:26)
[2019-11-30] MEDS: COD LIVER OIL/ZINC OXIDE OINT 113 GM TUBE TOP SCH ×2 (09:24→20:26)
--- NOTE | 2019-11-30 09:30 | NUR ---
pt,back in room no pain or discomfort noted. Resumed meds and gt feeding.
[2019-11-30] MEDS: GLUCERNA 1.2 1000ML LIQUID GT PRN (14:34)
[2019-11-30 20:00] VITALS: BP 124/76
[2019-11-30] MEDS: FERROUS SULFATE 330 MG/7.5 ML UDC- FOR SA ONLY GT SCH (20:26)
[2019-11-30] MEDS: ATORVASTATIN 10 MG TABLET GT SCH (20:26)
[2019-12-01] MEDS: REFRESH EYE RIGHTEYE SCH ×6 (00:43→21:08)
[2019-12-01] MEDS: POLYVINYL ALCOHOL OPHT DROPS 15 ML BOTTLE EACHEYE SCH ×6 (03:31→23:13)
[2019-12-01] MEDS: PANTOPRAZOLE ORAL SUSPENSION 40 MG SUSPDR.PKT GT SCH (05:12)
[2019-12-01] MEDS: LEVOTHYROXINE SODIUM 50 MCG TABLET GT SCH (05:12)
[2019-12-01] MEDS: BLOOD SUGAR DIAGNOSTIC 1 EACH STRIP VI SCH ×3 (05:52→21:09)
[2019-12-01] MEDS: INSULIN REGULAR, HUMAN 300 UNIT/3 ML VIAL SQ PRN ×3 (05:52→21:10)
[2019-12-01] MEDS: INSULIN GLARGINE,HUM 300 UNITS/3 ML CARTRIDGE SQ SCH ×2 (05:53→17:41)
[2019-12-01 07:41] VITALS: BP 135/86
[2019-12-01] MEDS: DOCUSATE SODIUM 100 MG/10 ML LIQUID UDC GT SCH ×2 (08:22→21:08)
[2019-12-01] MEDS: ACIDOPHILUS/BULGARICUS CHEW TAB GT SCH ×2 (08:25→21:08)
[2019-12-01] MEDS: POTASSIUM CHLORIDE 20 MEQ POWDER PACKET GT SCH (08:26)
[2019-12-01] MEDS: COD LIVER OIL/ZINC OXIDE OINT 113 GM TUBE TOP SCH ×2 (08:27→21:08)
[2019-12-01] MEDS: HYDROGEN PEROXIDE 3% 118 ML BOTTLE TP SCH ×2 (08:40→21:40)
[2019-12-01] MEDS: GLUCERNA 1.2 1000ML LIQUID GT PRN (12:31)
[2019-12-01 20:14] VITALS: BP 115/72
[2019-12-01] MEDS: FERROUS SULFATE 330 MG/7.5 ML UDC- FOR SA ONLY GT SCH (21:08)
[2019-12-01] MEDS: ATORVASTATIN 10 MG TABLET GT SCH (21:08)
[2019-12-02] MEDS: REFRESH EYE RIGHTEYE SCH ×6 (00:37→20:44)
[2019-12-02] MEDS: POLYVINYL ALCOHOL OPHT DROPS 15 ML BOTTLE EACHEYE SCH ×6 (04:05→23:14)
[2019-12-02] MEDS: BLOOD SUGAR DIAGNOSTIC 1 EACH STRIP VI SCH ×3 (05:20→21:09)
[2019-12-02] MEDS: PANTOPRAZOLE ORAL SUSPENSION 40 MG SUSPDR.PKT GT SCH (05:20)
[2019-12-02] MEDS: LEVOTHYROXINE SODIUM 50 MCG TABLET GT SCH (05:20)
[2019-12-02] MEDS: INSULIN REGULAR, HUMAN 300 UNIT/3 ML VIAL SQ PRN ×3 (05:23→21:09)
[2019-12-02] MEDS: INSULIN GLARGINE,HUM 300 UNITS/3 ML CARTRIDGE SQ SCH ×2 (05:24→18:56)
[2019-12-02 07:40] VITALS: BP 113/72
[2019-12-02] MEDS: DOCUSATE SODIUM 100 MG/10 ML LIQUID UDC GT SCH ×2 (08:11→20:44)
[2019-12-02] MEDS: POTASSIUM CHLORIDE 20 MEQ POWDER PACKET GT SCH (08:11)
[2019-12-02] MEDS: ACIDOPHILUS/BULGARICUS CHEW TAB GT SCH ×2 (08:11→20:44)
[2019-12-02] MEDS: BISACODYL 10 MG SUPP.RECT RC SCH (08:12)
[2019-12-02] MEDS: COD LIVER OIL/ZINC OXIDE OINT 113 GM TUBE TOP SCH ×2 (08:12→20:44)
[2019-12-02] MEDS: HYDROGEN PEROXIDE 3% 118 ML BOTTLE TP SCH ×2 (08:41→20:28)
[2019-12-02 20:13] VITALS: BP 98/74
[2019-12-02] MEDS: FERROUS SULFATE 330 MG/7.5 ML UDC- FOR SA ONLY GT SCH (20:44)
[2019-12-02] MEDS: ATORVASTATIN 10 MG TABLET GT SCH (20:44)
[2019-12-03] MEDS: REFRESH EYE RIGHTEYE SCH ×6 (00:04→20:59)
[2019-12-03] MEDS: POLYVINYL ALCOHOL OPHT DROPS 15 ML BOTTLE EACHEYE SCH ×6 (03:51→23:08)
[2019-12-03] MEDS: PANTOPRAZOLE ORAL SUSPENSION 40 MG SUSPDR.PKT GT SCH (05:27)
[2019-12-03] MEDS: BLOOD SUGAR DIAGNOSTIC 1 EACH STRIP VI SCH ×3 (05:27→22:05)
[2019-12-03] MEDS: LEVOTHYROXINE SODIUM 50 MCG TABLET GT SCH (05:27)
[2019-12-03] MEDS: INSULIN REGULAR, HUMAN 300 UNIT/3 ML VIAL SQ PRN ×3 (05:28→22:08)
[2019-12-03] MEDS: INSULIN GLARGINE,HUM 300 UNITS/3 ML CARTRIDGE SQ SCH ×2 (05:29→17:39)
[2019-12-03 07:52] VITALS: BP 100/63
[2019-12-03] MEDS: ACIDOPHILUS/BULGARICUS CHEW TAB GT SCH ×2 (08:14→20:59)
[2019-12-03] MEDS: DOCUSATE SODIUM 100 MG/10 ML LIQUID UDC GT SCH ×2 (08:14→20:59)
[2019-12-03] MEDS: POTASSIUM CHLORIDE 20 MEQ POWDER PACKET GT SCH (08:15)
[2019-12-03] MEDS: COD LIVER OIL/ZINC OXIDE OINT 113 GM TUBE TOP SCH ×2 (08:15→21:00)
[2019-12-03] MEDS: HYDROGEN PEROXIDE 3% 118 ML BOTTLE TP SCH ×2 (09:00→19:18)
--- NOTE | 2019-12-03 11:30 | NUR ---
SEEN AND EXAMINED BY ANAID Maguire FOR RT EYE REDNESS .
--- NOTE | 2019-12-03 15:30 | NUR ---
NEW ORDER FOR COVID TEST CARRIED OUT.
--- NOTE | 2019-12-03 15:30 | NUR ---
NEW ORDER CARRIED OUT FOR COVID 19 TEST.
--- NOTE | 2019-12-03 16:35 | NUR ---
Patient relative notified for covid test today.
[2019-12-03 19:50] VITALS: BP 95/63
--- NOTE | 2019-12-03 20:00 | NUR ---
ENDORSED TO NOC SHIFT TO F/U IN AM WITH HEALTH CARE FACILITIES INSPECTOR,TO VERIFY PHONE # OF DR. HERNANDES D/T NOT ANSWERING.
[2019-12-03] MEDS: ATORVASTATIN 10 MG TABLET GT SCH (20:59)
[2019-12-03] MEDS: FERROUS SULFATE 330 MG/7.5 ML UDC- FOR SA ONLY GT SCH (20:59)
[2019-12-04] MEDS: REFRESH EYE RIGHTEYE SCH ×6 (01:00→20:57)
[2019-12-04] MEDS: POLYVINYL ALCOHOL OPHT DROPS 15 ML BOTTLE EACHEYE SCH ×5 (04:00→20:08)
[2019-12-04] MEDS: PANTOPRAZOLE ORAL SUSPENSION 40 MG SUSPDR.PKT GT SCH (05:49)
[2019-12-04] MEDS: LEVOTHYROXINE SODIUM 50 MCG TABLET GT SCH (05:49)
[2019-12-04] MEDS: INSULIN GLARGINE,HUM 300 UNITS/3 ML CARTRIDGE SQ SCH ×2 (05:50→18:18)
[2019-12-04] MEDS: BLOOD SUGAR DIAGNOSTIC 1 EACH STRIP VI SCH ×3 (05:51→22:07)
[2019-12-04] MEDS: INSULIN REGULAR, HUMAN 300 UNIT/3 ML VIAL SQ PRN ×2 (05:52→22:14)
[2019-12-04 07:28] VITALS: BP 99/63
[2019-12-04] MEDS: COD LIVER OIL/ZINC OXIDE OINT 113 GM TUBE TOP SCH ×2 (09:00→20:57)
[2019-12-04] MEDS: BISACODYL 10 MG SUPP.RECT RC SCH (09:00)
[2019-12-04] MEDS: DOCUSATE SODIUM 100 MG/10 ML LIQUID UDC GT SCH ×2 (09:00→20:57)
[2019-12-04] MEDS: POTASSIUM CHLORIDE 20 MEQ POWDER PACKET GT SCH (09:00)
[2019-12-04] MEDS: ACIDOPHILUS/BULGARICUS CHEW TAB GT SCH ×2 (09:00→20:57)
[2019-12-04] MEDS: HYDROGEN PEROXIDE 3% 118 ML BOTTLE TP SCH ×2 (09:34→21:02)
--- NOTE | 2019-12-04 15:24 | NUR ---
INTERDISCIPLINARY PLAN OF CARE CONFERENCE was held today. Patient's daughter was not available to participate in the meeting. Dr. Nolan and the Interdisciplinary Team reviewed the current plan of care in detail. RN reported on patient's medical condition, range of BS findings, and reported that ophthalmology consultation is pending for the patient. See RN IDT conference notes. No major changes in medical condition were reported by nursing or by other disciplines. See all other disciplines IDT notes and physician's progress notes for additional details.
[2019-12-04 20:28] VITALS: BP 124/81
[2019-12-04] MEDS: FERROUS SULFATE 330 MG/7.5 ML UDC- FOR SA ONLY GT SCH (20:57)
[2019-12-04] MEDS: ATORVASTATIN 10 MG TABLET GT SCH (20:57)
[2019-12-05] MEDS: REFRESH EYE RIGHTEYE SCH ×6 (01:00→21:28)
[2019-12-05] MEDS: GLUCERNA 1.2 1000ML LIQUID GT PRN (03:49)
[2019-12-05] MEDS: POLYVINYL ALCOHOL OPHT DROPS 15 ML BOTTLE EACHEYE SCH ×7 (04:05→23:38)
[2019-12-05] MEDS: PANTOPRAZOLE ORAL SUSPENSION 40 MG SUSPDR.PKT GT SCH (06:11)
[2019-12-05] MEDS: LEVOTHYROXINE SODIUM 50 MCG TABLET GT SCH (06:11)
[2019-12-05] MEDS: BLOOD SUGAR DIAGNOSTIC 1 EACH STRIP VI SCH ×3 (06:11→22:31)
[2019-12-05] MEDS: INSULIN GLARGINE,HUM 300 UNITS/3 ML CARTRIDGE SQ SCH ×2 (06:13→17:53)
[2019-12-05] MEDS: INSULIN REGULAR, HUMAN 300 UNIT/3 ML VIAL SQ PRN ×3 (06:14→22:32)
[2019-12-05 07:30] VITALS: BP 149/82
[2019-12-05] MEDS: POTASSIUM CHLORIDE 20 MEQ POWDER PACKET GT SCH (08:22)
[2019-12-05] MEDS: DOCUSATE SODIUM 100 MG/10 ML LIQUID UDC GT SCH ×2 (08:22→21:26)
[2019-12-05] MEDS: COD LIVER OIL/ZINC OXIDE OINT 113 GM TUBE TOP SCH ×2 (08:22→21:28)
[2019-12-05] MEDS: ACIDOPHILUS/BULGARICUS CHEW TAB GT SCH ×2 (08:22→21:26)
[2019-12-05] MEDS: HYDROGEN PEROXIDE 3% 118 ML BOTTLE TP SCH ×2 (11:20→21:28)
--- NOTE | 2019-12-05 18:14 | NUR ---
Left message to Mana laguna's daughter regarding Covid 19 results waiting for her to call back.
[2019-12-05 20:07] VITALS: BP 122/71
[2019-12-05] MEDS: ATORVASTATIN 10 MG TABLET GT SCH (21:26)
[2019-12-05] MEDS: FERROUS SULFATE 330 MG/7.5 ML UDC- FOR SA ONLY GT SCH (21:26)
[2019-12-06] MEDS: GLUCERNA 1.2 1000ML LIQUID GT PRN (00:20)
[2019-12-06] MEDS: REFRESH EYE RIGHTEYE SCH ×6 (01:00→21:19)
[2019-12-06] MEDS: POLYVINYL ALCOHOL OPHT DROPS 15 ML BOTTLE EACHEYE SCH ×5 (04:12→20:00)
[2019-12-06] MEDS: LEVOTHYROXINE SODIUM 50 MCG TABLET GT SCH (06:15)
[2019-12-06] MEDS: PANTOPRAZOLE ORAL SUSPENSION 40 MG SUSPDR.PKT GT SCH (06:15)
[2019-12-06] MEDS: BLOOD SUGAR DIAGNOSTIC 1 EACH STRIP VI SCH ×3 (06:16→22:03)
[2019-12-06] MEDS: INSULIN GLARGINE,HUM 300 UNITS/3 ML CARTRIDGE SQ SCH ×2 (06:17→17:02)
[2019-12-06] MEDS: INSULIN REGULAR, HUMAN 300 UNIT/3 ML VIAL SQ PRN ×3 (06:19→22:04)
[2019-12-06 07:45] VITALS: BP 135/77
[2019-12-06] MEDS: BISACODYL 10 MG SUPP.RECT RC SCH (08:20)
[2019-12-06] MEDS: POTASSIUM CHLORIDE 20 MEQ POWDER PACKET GT SCH (08:20)
[2019-12-06] MEDS: DOCUSATE SODIUM 100 MG/10 ML LIQUID UDC GT SCH ×2 (08:20→21:17)
[2019-12-06] MEDS: ACIDOPHILUS/BULGARICUS CHEW TAB GT SCH ×2 (08:20→21:17)
[2019-12-06] MEDS: COD LIVER OIL/ZINC OXIDE OINT 113 GM TUBE TOP SCH ×2 (08:21→21:19)
[2019-12-06] MEDS: HYDROGEN PEROXIDE 3% 118 ML BOTTLE TP SCH ×2 (09:25→20:39)
[2019-12-06 20:14] VITALS: BP 135/71
[2019-12-06] MEDS: FERROUS SULFATE 330 MG/7.5 ML UDC- FOR SA ONLY GT SCH (21:17)
[2019-12-06] MEDS: ATORVASTATIN 10 MG TABLET GT SCH (21:18)
[2019-12-07] MEDS: POLYVINYL ALCOHOL OPHT DROPS 15 ML BOTTLE EACHEYE SCH ×6 (00:05→20:42)
[2019-12-07] MEDS: REFRESH EYE RIGHTEYE SCH ×6 (01:00→21:39)
[2019-12-07] MEDS: INSULIN REGULAR, HUMAN 300 UNIT/3 ML VIAL SQ PRN ×3 (05:51→22:23)
[2019-12-07] MEDS: LEVOTHYROXINE SODIUM 50 MCG TABLET GT SCH (05:53)
[2019-12-07] MEDS: PANTOPRAZOLE ORAL SUSPENSION 40 MG SUSPDR.PKT GT SCH (05:53)
[2019-12-07] MEDS: INSULIN GLARGINE,HUM 300 UNITS/3 ML CARTRIDGE SQ SCH ×2 (05:54→17:11)
[2019-12-07] MEDS: BLOOD SUGAR DIAGNOSTIC 1 EACH STRIP VI SCH ×3 (05:54→22:23)
[2019-12-07] MEDS: HYDROGEN PEROXIDE 3% 118 ML BOTTLE TP SCH ×2 (07:39→20:53)
[2019-12-07 07:52] VITALS: BP 146/78
[2019-12-07] MEDS: POTASSIUM CHLORIDE 20 MEQ POWDER PACKET GT SCH (08:24)
[2019-12-07] MEDS: DOCUSATE SODIUM 100 MG/10 ML LIQUID UDC GT SCH ×2 (08:24→21:39)
[2019-12-07] MEDS: COD LIVER OIL/ZINC OXIDE OINT 113 GM TUBE TOP SCH ×2 (08:24→21:39)
[2019-12-07] MEDS: ACIDOPHILUS/BULGARICUS CHEW TAB GT SCH ×2 (08:24→21:39)
[2019-12-07 20:15] VITALS: BP 129/84
[2019-12-07] MEDS: FERROUS SULFATE 330 MG/7.5 ML UDC- FOR SA ONLY GT SCH (21:39)
[2019-12-07] MEDS: ATORVASTATIN 10 MG TABLET GT SCH (21:39)
[2019-12-08] MEDS: POLYVINYL ALCOHOL OPHT DROPS 15 ML BOTTLE EACHEYE SCH ×6 (00:22→20:16)
[2019-12-08] MEDS: REFRESH EYE RIGHTEYE SCH ×6 (01:03→20:58)
[2019-12-08] MEDS: GLUCERNA 1.2 1000ML LIQUID GT PRN (04:10)
[2019-12-08] MEDS: BLOOD SUGAR DIAGNOSTIC 1 EACH STRIP VI SCH ×3 (05:48→22:29)
[2019-12-08] MEDS: INSULIN REGULAR, HUMAN 300 UNIT/3 ML VIAL SQ PRN ×3 (05:49→22:31)
[2019-12-08] MEDS: PANTOPRAZOLE ORAL SUSPENSION 40 MG SUSPDR.PKT GT SCH (05:50)
[2019-12-08] MEDS: LEVOTHYROXINE SODIUM 50 MCG TABLET GT SCH (05:51)
[2019-12-08] MEDS: INSULIN GLARGINE,HUM 300 UNITS/3 ML CARTRIDGE SQ SCH ×2 (06:01→17:17)
[2019-12-08 08:05] VITALS: BP 131/82
[2019-12-08] MEDS: ACIDOPHILUS/BULGARICUS CHEW TAB GT SCH ×2 (08:17→20:56)
[2019-12-08] MEDS: DOCUSATE SODIUM 100 MG/10 ML LIQUID UDC GT SCH ×2 (08:17→20:56)
[2019-12-08] MEDS: POTASSIUM CHLORIDE 20 MEQ POWDER PACKET GT SCH (08:18)
[2019-12-08] MEDS: BISACODYL 10 MG SUPP.RECT RC SCH (08:18)
[2019-12-08] MEDS: COD LIVER OIL/ZINC OXIDE OINT 113 GM TUBE TOP SCH ×2 (08:19→20:58)
[2019-12-08] MEDS: HYDROGEN PEROXIDE 3% 118 ML BOTTLE TP SCH ×2 (09:00→21:02)
[2019-12-08 20:00] VITALS: BP 134/91
[2019-12-08] MEDS: FERROUS SULFATE 330 MG/7.5 ML UDC- FOR SA ONLY GT SCH (20:56)
[2019-12-08] MEDS: ATORVASTATIN 10 MG TABLET GT SCH (20:58)
[2019-12-09] MEDS: POLYVINYL ALCOHOL OPHT DROPS 15 ML BOTTLE EACHEYE SCH ×6 (00:07→20:00)
[2019-12-09] MEDS: REFRESH EYE RIGHTEYE SCH ×6 (01:52→21:17)
[2019-12-09] MEDS: GLUCERNA 1.2 1000ML LIQUID GT PRN ×2 (02:30→17:09)
[2019-12-09] MEDS: LEVOTHYROXINE SODIUM 50 MCG TABLET GT SCH (06:31)
[2019-12-09] MEDS: PANTOPRAZOLE ORAL SUSPENSION 40 MG SUSPDR.PKT GT SCH (06:31)
[2019-12-09] MEDS: BLOOD SUGAR DIAGNOSTIC 1 EACH STRIP VI SCH ×3 (06:31→21:20)
[2019-12-09] MEDS: INSULIN GLARGINE,HUM 300 UNITS/3 ML CARTRIDGE SQ SCH ×2 (06:38→18:17)
[2019-12-09] MEDS: INSULIN REGULAR, HUMAN 300 UNIT/3 ML VIAL SQ PRN ×3 (06:39→21:23)
[2019-12-09 07:58] VITALS: BP 110/70
[2019-12-09] MEDS: DOCUSATE SODIUM 100 MG/10 ML LIQUID UDC GT SCH ×2 (08:14→21:15)
[2019-12-09] MEDS: ACIDOPHILUS/BULGARICUS CHEW TAB GT SCH ×2 (08:15→21:17)
[2019-12-09] MEDS: POTASSIUM CHLORIDE 20 MEQ POWDER PACKET GT SCH (08:15)
[2019-12-09] MEDS: COD LIVER OIL/ZINC OXIDE OINT 113 GM TUBE TOP SCH ×2 (08:15→21:18)
[2019-12-09] MEDS: HYDROGEN PEROXIDE 3% 118 ML BOTTLE TP SCH ×2 (09:21→20:16)
[2019-12-09 20:48] VITALS: BP 112/73
[2019-12-09] MEDS: FERROUS SULFATE 330 MG/7.5 ML UDC- FOR SA ONLY GT SCH (21:16)
[2019-12-09] MEDS: ATORVASTATIN 10 MG TABLET GT SCH (21:17)
[2019-12-10] MEDS: REFRESH EYE RIGHTEYE SCH ×6 (01:35→21:13)
[2019-12-10] MEDS: POLYVINYL ALCOHOL OPHT DROPS 15 ML BOTTLE EACHEYE SCH ×6 (04:12→20:00)
[2019-12-10] MEDS: LEVOTHYROXINE SODIUM 50 MCG TABLET GT SCH (05:28)
[2019-12-10] MEDS: PANTOPRAZOLE ORAL SUSPENSION 40 MG SUSPDR.PKT GT SCH (05:28)
[2019-12-10] MEDS: INSULIN GLARGINE,HUM 300 UNITS/3 ML CARTRIDGE SQ SCH ×2 (05:29→17:45)
[2019-12-10] MEDS: BLOOD SUGAR DIAGNOSTIC 1 EACH STRIP VI SCH ×3 (05:29→21:13)
[2019-12-10] MEDS: INSULIN REGULAR, HUMAN 300 UNIT/3 ML VIAL SQ PRN ×3 (05:30→21:16)
[2019-12-10 07:50] VITALS: BP 107/64
[2019-12-10] MEDS: DOCUSATE SODIUM 100 MG/10 ML LIQUID UDC GT SCH ×2 (08:17→21:11)
[2019-12-10] MEDS: POTASSIUM CHLORIDE 20 MEQ POWDER PACKET GT SCH (08:18)
[2019-12-10] MEDS: ACIDOPHILUS/BULGARICUS CHEW TAB GT SCH ×2 (08:18→21:11)
[2019-12-10] MEDS: BISACODYL 10 MG SUPP.RECT RC SCH (08:18)
[2019-12-10] MEDS: COD LIVER OIL/ZINC OXIDE OINT 113 GM TUBE TOP SCH ×2 (08:19→21:13)
[2019-12-10] MEDS: HYDROGEN PEROXIDE 3% 118 ML BOTTLE TP SCH ×2 (09:34→20:36)
[2019-12-10] MEDS: GLUCERNA 1.2 1000ML LIQUID GT PRN (16:57)
[2019-12-10 20:28] VITALS: BP 109/59
[2019-12-10] MEDS: ATORVASTATIN 10 MG TABLET GT SCH (21:11)
[2019-12-10] MEDS: FERROUS SULFATE 330 MG/7.5 ML UDC- FOR SA ONLY GT SCH (21:11)
[2019-12-11] MEDS: POLYVINYL ALCOHOL OPHT DROPS 15 ML BOTTLE EACHEYE SCH ×6 (00:20→20:00)
[2019-12-11] MEDS: REFRESH EYE RIGHTEYE SCH ×6 (01:00→21:19)
[2019-12-11] MEDS: PANTOPRAZOLE ORAL SUSPENSION 40 MG SUSPDR.PKT GT SCH (06:01)
[2019-12-11] MEDS: LEVOTHYROXINE SODIUM 50 MCG TABLET GT SCH (06:01)
[2019-12-11] MEDS: INSULIN GLARGINE,HUM 300 UNITS/3 ML CARTRIDGE SQ SCH ×2 (06:02→17:26)
[2019-12-11] MEDS: BLOOD SUGAR DIAGNOSTIC 1 EACH STRIP VI SCH ×3 (06:02→21:20)
[2019-12-11] MEDS: INSULIN REGULAR, HUMAN 300 UNIT/3 ML VIAL SQ PRN ×3 (06:03→21:33)
[2019-12-11 07:30] VITALS: BP 101/61
[2019-12-11] MEDS: HYDROGEN PEROXIDE 3% 118 ML BOTTLE TP SCH ×2 (07:38→21:12)
[2019-12-11] MEDS: ACIDOPHILUS/BULGARICUS CHEW TAB GT SCH ×2 (08:52→21:19)
[2019-12-11] MEDS: DOCUSATE SODIUM 100 MG/10 ML LIQUID UDC GT SCH ×2 (08:52→21:19)
[2019-12-11] MEDS: POTASSIUM CHLORIDE 20 MEQ POWDER PACKET GT SCH (08:52)
[2019-12-11] MEDS: COD LIVER OIL/ZINC OXIDE OINT 113 GM TUBE TOP SCH ×2 (08:53→21:19)
[2019-12-11] MEDS: GLUCERNA 1.2 1000ML LIQUID GT PRN (12:45)
--- NOTE | 2019-12-11 16:27 | NUR ---
Patient's daughter Mana notified for covid test today.per [facility] requirement
[2019-12-11 20:14] VITALS: BP 146/85
[2019-12-11] MEDS: ATORVASTATIN 10 MG TABLET GT SCH (21:19)
[2019-12-11] MEDS: FERROUS SULFATE 330 MG/7.5 ML UDC- FOR SA ONLY GT SCH (21:19)
[2019-12-12] MEDS: REFRESH EYE RIGHTEYE SCH ×6 (01:00→21:36)
[2019-12-12] MEDS: POLYVINYL ALCOHOL OPHT DROPS 15 ML BOTTLE EACHEYE SCH ×6 (04:21→20:00)
[2019-12-12] MEDS: LEVOTHYROXINE SODIUM 50 MCG TABLET GT SCH (06:09)
[2019-12-12] MEDS: PANTOPRAZOLE ORAL SUSPENSION 40 MG SUSPDR.PKT GT SCH (06:09)
[2019-12-12] MEDS: BLOOD SUGAR DIAGNOSTIC 1 EACH STRIP VI SCH ×3 (06:09→21:39)
[2019-12-12] MEDS: INSULIN GLARGINE,HUM 300 UNITS/3 ML CARTRIDGE SQ SCH ×2 (06:23→17:54)
[2019-12-12] MEDS: INSULIN REGULAR, HUMAN 300 UNIT/3 ML VIAL SQ PRN ×3 (06:24→21:40)
[2019-12-12 07:49] VITALS: BP 108/61
[2019-12-12] MEDS: ACIDOPHILUS/BULGARICUS CHEW TAB GT SCH ×2 (08:17→21:35)
[2019-12-12] MEDS: DOCUSATE SODIUM 100 MG/10 ML LIQUID UDC GT SCH ×2 (08:17→21:34)
[2019-12-12] MEDS: HYDROGEN PEROXIDE 3% 118 ML BOTTLE TP SCH ×2 (08:17→20:31)
[2019-12-12] MEDS: BISACODYL 10 MG SUPP.RECT RC SCH (08:18)
[2019-12-12] MEDS: POTASSIUM CHLORIDE 20 MEQ POWDER PACKET GT SCH (08:18)
[2019-12-12] MEDS: COD LIVER OIL/ZINC OXIDE OINT 113 GM TUBE TOP SCH ×2 (08:18→21:36)
[2019-12-12] MEDS: GLUCERNA 1.2 1000ML LIQUID GT PRN (12:28)
[2019-12-12 20:00] VITALS: BP 130/79
--- NOTE | 2019-12-12 20:36 | NUR ---
Patient's daughter Mana notified covid 19 test results negative.
[2019-12-12] MEDS: FERROUS SULFATE 330 MG/7.5 ML UDC- FOR SA ONLY GT SCH (21:34)
[2019-12-12] MEDS: ATORVASTATIN 10 MG TABLET GT SCH (21:35)
[2019-12-13] MEDS: REFRESH EYE RIGHTEYE SCH ×6 (01:00→21:11)
[2019-12-13] MEDS: POLYVINYL ALCOHOL OPHT DROPS 15 ML BOTTLE EACHEYE SCH ×6 (04:10→20:00)
[2019-12-13] MEDS: PANTOPRAZOLE ORAL SUSPENSION 40 MG SUSPDR.PKT GT SCH (06:20)
[2019-12-13] MEDS: BLOOD SUGAR DIAGNOSTIC 1 EACH STRIP VI SCH ×3 (06:20→21:11)
[2019-12-13] MEDS: LEVOTHYROXINE SODIUM 50 MCG TABLET GT SCH (06:20)
[2019-12-13] MEDS: INSULIN GLARGINE,HUM 300 UNITS/3 ML CARTRIDGE SQ SCH ×2 (06:25→18:34)
[2019-12-13] MEDS: INSULIN REGULAR, HUMAN 300 UNIT/3 ML VIAL SQ PRN ×3 (06:26→21:14)
[2019-12-13] MEDS: HYDROGEN PEROXIDE 3% 118 ML BOTTLE TP SCH ×2 (07:03→20:26)
[2019-12-13 07:44] VITALS: BP 132/78
[2019-12-13] MEDS: COD LIVER OIL/ZINC OXIDE OINT 113 GM TUBE TOP SCH ×2 (08:40→21:11)
[2019-12-13] MEDS: ACIDOPHILUS/BULGARICUS CHEW TAB GT SCH ×2 (08:40→21:10)
[2019-12-13] MEDS: POTASSIUM CHLORIDE 20 MEQ POWDER PACKET GT SCH (08:40)
[2019-12-13] MEDS: DOCUSATE SODIUM 100 MG/10 ML LIQUID UDC GT SCH ×2 (08:40→21:10)
[2019-12-13 20:00] VITALS: BP 131/82
[2019-12-13] MEDS: FERROUS SULFATE 330 MG/7.5 ML UDC- FOR SA ONLY GT SCH (21:10)
[2019-12-13] MEDS: ATORVASTATIN 10 MG TABLET GT SCH (21:11)
[2019-12-14] MEDS: REFRESH EYE RIGHTEYE SCH ×6 (01:00→21:38)
[2019-12-14] MEDS: POLYVINYL ALCOHOL OPHT DROPS 15 ML BOTTLE EACHEYE SCH ×6 (04:06→20:00)
[2019-12-14] MEDS: GLUCERNA 1.2 1000ML LIQUID GT PRN ×2 (04:30→18:05)
[2019-12-14] MEDS: PANTOPRAZOLE ORAL SUSPENSION 40 MG SUSPDR.PKT GT SCH (06:02)
[2019-12-14] MEDS: BLOOD SUGAR DIAGNOSTIC 1 EACH STRIP VI SCH ×3 (06:02→22:28)
[2019-12-14] MEDS: LEVOTHYROXINE SODIUM 50 MCG TABLET GT SCH (06:02)
[2019-12-14] MEDS: INSULIN GLARGINE,HUM 300 UNITS/3 ML CARTRIDGE SQ SCH ×2 (06:08→17:55)
[2019-12-14] MEDS: INSULIN REGULAR, HUMAN 300 UNIT/3 ML VIAL SQ PRN ×3 (06:09→22:47)
[2019-12-14] MEDS: HYDROGEN PEROXIDE 3% 118 ML BOTTLE TP SCH ×2 (07:09→21:04)
[2019-12-14 07:39] VITALS: BP 121/75
[2019-12-14] MEDS: ACIDOPHILUS/BULGARICUS CHEW TAB GT SCH ×2 (08:50→21:38)
[2019-12-14] MEDS: DOCUSATE SODIUM 100 MG/10 ML LIQUID UDC GT SCH ×2 (08:50→21:37)
[2019-12-14] MEDS: BISACODYL 10 MG SUPP.RECT RC SCH (08:51)
[2019-12-14] MEDS: POTASSIUM CHLORIDE 20 MEQ POWDER PACKET GT SCH (08:51)
[2019-12-14] MEDS: COD LIVER OIL/ZINC OXIDE OINT 113 GM TUBE TOP SCH ×2 (08:52→21:38)
[2019-12-14 20:00] VITALS: BP 145/77
[2019-12-14] MEDS: ATORVASTATIN 10 MG TABLET GT SCH (21:38)
[2019-12-14] MEDS: FERROUS SULFATE 330 MG/7.5 ML UDC- FOR SA ONLY GT SCH (21:38)
[2019-12-15] MEDS: REFRESH EYE RIGHTEYE SCH ×6 (01:05→21:27)
[2019-12-15] MEDS: POLYVINYL ALCOHOL OPHT DROPS 15 ML BOTTLE EACHEYE SCH ×6 (04:27→20:00)
[2019-12-15] MEDS: PANTOPRAZOLE ORAL SUSPENSION 40 MG SUSPDR.PKT GT SCH (05:47)
[2019-12-15] MEDS: LEVOTHYROXINE SODIUM 50 MCG TABLET GT SCH (05:47)
[2019-12-15] MEDS: BLOOD SUGAR DIAGNOSTIC 1 EACH STRIP VI SCH ×3 (05:47→21:31)
[2019-12-15] MEDS: INSULIN GLARGINE,HUM 300 UNITS/3 ML CARTRIDGE SQ SCH ×2 (05:48→18:33)
[2019-12-15] MEDS: HYDROGEN PEROXIDE 3% 118 ML BOTTLE TP SCH ×2 (07:20→21:31)
[2019-12-15 07:57] VITALS: BP 140/78
[2019-12-15] MEDS: DOCUSATE SODIUM 100 MG/10 ML LIQUID UDC GT SCH ×2 (09:03→21:28)
[2019-12-15] MEDS: POTASSIUM CHLORIDE 20 MEQ POWDER PACKET GT SCH (09:04)
[2019-12-15] MEDS: ACIDOPHILUS/BULGARICUS CHEW TAB GT SCH ×2 (09:04→21:26)
[2019-12-15] MEDS: COD LIVER OIL/ZINC OXIDE OINT 113 GM TUBE TOP SCH ×2 (09:08→21:27)
[2019-12-15] MEDS: INSULIN REGULAR, HUMAN 300 UNIT/3 ML VIAL SQ PRN ×2 (13:42→21:34)
[2019-12-15 20:08] VITALS: BP 136/68
[2019-12-15] MEDS: FERROUS SULFATE 330 MG/7.5 ML UDC- FOR SA ONLY GT SCH (21:26)
[2019-12-15] MEDS: ATORVASTATIN 10 MG TABLET GT SCH (21:44)
[2019-12-16] MEDS: REFRESH EYE RIGHTEYE SCH ×6 (00:01→20:21)
[2019-12-16] MEDS: POLYVINYL ALCOHOL OPHT DROPS 15 ML BOTTLE EACHEYE SCH ×7 (00:01→23:17)
[2019-12-16] MEDS: LEVOTHYROXINE SODIUM 50 MCG TABLET GT SCH (05:54)
[2019-12-16] MEDS: PANTOPRAZOLE ORAL SUSPENSION 40 MG SUSPDR.PKT GT SCH (05:54)
[2019-12-16] MEDS: BLOOD SUGAR DIAGNOSTIC 1 EACH STRIP VI SCH ×3 (05:55→21:45)
[2019-12-16] MEDS: INSULIN REGULAR, HUMAN 300 UNIT/3 ML VIAL SQ PRN ×3 (06:00→21:47)
[2019-12-16] MEDS: INSULIN GLARGINE,HUM 300 UNITS/3 ML CARTRIDGE SQ SCH ×2 (06:02→17:30)
[2019-12-16] MEDS: HYDROGEN PEROXIDE 3% 118 ML BOTTLE TP SCH ×2 (07:16→20:21)
[2019-12-16 08:00] VITALS: BP 107/63
[2019-12-16] MEDS: POTASSIUM CHLORIDE 20 MEQ POWDER PACKET GT SCH (08:54)
[2019-12-16] MEDS: DOCUSATE SODIUM 100 MG/10 ML LIQUID UDC GT SCH ×2 (08:54→20:20)
[2019-12-16] MEDS: ACIDOPHILUS/BULGARICUS CHEW TAB GT SCH ×2 (08:54→20:21)
[2019-12-16] MEDS: BISACODYL 10 MG SUPP.RECT RC SCH (08:54)
[2019-12-16] MEDS: COD LIVER OIL/ZINC OXIDE OINT 113 GM TUBE TOP SCH ×2 (08:54→20:21)
[2019-12-16] MEDS: GLUCERNA 1.2 1000ML LIQUID GT PRN (17:29)
[2019-12-16 20:15] VITALS: BP 140/87
[2019-12-16] MEDS: FERROUS SULFATE 330 MG/7.5 ML UDC- FOR SA ONLY GT SCH (20:20)
[2019-12-16] MEDS: ATORVASTATIN 10 MG TABLET GT SCH (20:21)
--- NOTE | 2019-12-16 22:22 | NUR ---
Seen and examined by UMESH Garcia with No new orders.
[2019-12-17] MEDS: REFRESH EYE RIGHTEYE SCH ×6 (00:48→21:03)
[2019-12-17] MEDS: POLYVINYL ALCOHOL OPHT DROPS 15 ML BOTTLE EACHEYE SCH ×6 (03:06→23:17)
[2019-12-17] MEDS: PANTOPRAZOLE ORAL SUSPENSION 40 MG SUSPDR.PKT GT SCH (05:15)
[2019-12-17] MEDS: LEVOTHYROXINE SODIUM 50 MCG TABLET GT SCH (05:15)
[2019-12-17] MEDS: INSULIN REGULAR, HUMAN 300 UNIT/3 ML VIAL SQ PRN ×3 (05:21→21:13)
[2019-12-17] MEDS: BLOOD SUGAR DIAGNOSTIC 1 EACH STRIP VI SCH ×3 (05:24→21:12)
[2019-12-17] MEDS: INSULIN GLARGINE,HUM 300 UNITS/3 ML CARTRIDGE SQ SCH ×2 (05:27→18:04)
[2019-12-17 07:43] VITALS: BP 141/62
[2019-12-17] MEDS: DOCUSATE SODIUM 100 MG/10 ML LIQUID UDC GT SCH ×2 (08:46→21:03)
[2019-12-17] MEDS: ACIDOPHILUS/BULGARICUS CHEW TAB GT SCH ×2 (08:47→21:03)
[2019-12-17] MEDS: COD LIVER OIL/ZINC OXIDE OINT 113 GM TUBE TOP SCH ×2 (08:47→21:03)
[2019-12-17] MEDS: POTASSIUM CHLORIDE 20 MEQ POWDER PACKET GT SCH (08:47)
[2019-12-17] MEDS: HYDROGEN PEROXIDE 3% 118 ML BOTTLE TP SCH ×2 (09:00→21:25)
[2019-12-17 20:28] VITALS: BP 110/68
[2019-12-17] MEDS: FERROUS SULFATE 330 MG/7.5 ML UDC- FOR SA ONLY GT SCH (21:03)
[2019-12-17] MEDS: ATORVASTATIN 10 MG TABLET GT SCH (21:03)
[2019-12-18] MEDS: REFRESH EYE RIGHTEYE SCH ×6 (01:11→21:25)
[2019-12-18] MEDS: POLYVINYL ALCOHOL OPHT DROPS 15 ML BOTTLE EACHEYE SCH ×5 (03:08→20:00)
[2019-12-18] MEDS: LEVOTHYROXINE SODIUM 50 MCG TABLET GT SCH (05:16)
[2019-12-18] MEDS: PANTOPRAZOLE ORAL SUSPENSION 40 MG SUSPDR.PKT GT SCH (05:16)
[2019-12-18] MEDS: BLOOD SUGAR DIAGNOSTIC 1 EACH STRIP VI SCH ×3 (05:16→21:45)
[2019-12-18] MEDS: INSULIN REGULAR, HUMAN 300 UNIT/3 ML VIAL SQ PRN ×3 (05:17→21:47)
[2019-12-18] MEDS: INSULIN GLARGINE,HUM 300 UNITS/3 ML CARTRIDGE SQ SCH ×2 (05:19→18:15)
[2019-12-18 07:27] VITALS: BP 108/66
[2019-12-18] MEDS: POTASSIUM CHLORIDE 20 MEQ POWDER PACKET GT SCH (08:44)
[2019-12-18] MEDS: DOCUSATE SODIUM 100 MG/10 ML LIQUID UDC GT SCH ×2 (08:44→21:24)
[2019-12-18] MEDS: ACIDOPHILUS/BULGARICUS CHEW TAB GT SCH ×2 (08:44→21:25)
[2019-12-18] MEDS: BISACODYL 10 MG SUPP.RECT RC SCH (08:44)
[2019-12-18] MEDS: COD LIVER OIL/ZINC OXIDE OINT 113 GM TUBE TOP SCH ×2 (08:44→21:25)
[2019-12-18] MEDS: HYDROGEN PEROXIDE 3% 118 ML BOTTLE TP SCH ×2 (09:42→21:16)
[2019-12-18] MEDS: GLUCERNA 1.2 1000ML LIQUID GT PRN (10:27)
--- NOTE | 2019-12-18 20:25 | NUR ---
PT REMAIN ON CONTINUOUS VENT, TRACH CARE DONE. TRACH IN PLACED AND SECURED WITH TRACH TIE. BACK UP TRACH AND AMBU BAG AT BEDSIDE. BS MILD RHONCHI. SUCTION SMALL AMOUNT THICK PALE YELLOW SECRETIONS. VENT CHECKED, ALARMS WORKING WELL AND AUDIBLE. NO DISTRESS NOTED AT THIS TIME. WILL CONTINUE TO MONITOR.
[2019-12-18 20:47] VITALS: BP 120/63
[2019-12-18] MEDS: FERROUS SULFATE 330 MG/7.5 ML UDC- FOR SA ONLY GT SCH (21:25)
[2019-12-18] MEDS: ATORVASTATIN 10 MG TABLET GT SCH (21:25)
[2019-12-19] MEDS: POLYVINYL ALCOHOL OPHT DROPS 15 ML BOTTLE EACHEYE SCH ×6 (00:25→20:00)
[2019-12-19] MEDS: REFRESH EYE RIGHTEYE SCH ×6 (01:00→21:06)
[2019-12-19] MEDS: GLUCERNA 1.2 1000ML LIQUID GT PRN (06:04)
[2019-12-19] MEDS: PANTOPRAZOLE ORAL SUSPENSION 40 MG SUSPDR.PKT GT SCH (06:04)
[2019-12-19] MEDS: LEVOTHYROXINE SODIUM 50 MCG TABLET GT SCH (06:04)
[2019-12-19] MEDS: BLOOD SUGAR DIAGNOSTIC 1 EACH STRIP VI SCH ×3 (06:04→21:11)
[2019-12-19] MEDS: INSULIN GLARGINE,HUM 300 UNITS/3 ML CARTRIDGE SQ SCH ×2 (06:07→17:43)
[2019-12-19] MEDS: INSULIN REGULAR, HUMAN 300 UNIT/3 ML VIAL SQ PRN ×3 (06:08→21:12)
[2019-12-19] MEDS: HYDROGEN PEROXIDE 3% 118 ML BOTTLE TP SCH ×2 (07:11→21:00)
[2019-12-19 07:47] VITALS: BP 101/64
[2019-12-19] MEDS: DOCUSATE SODIUM 100 MG/10 ML LIQUID UDC GT SCH ×2 (08:12→21:05)
[2019-12-19] MEDS: ACIDOPHILUS/BULGARICUS CHEW TAB GT SCH ×2 (08:13→21:05)
[2019-12-19] MEDS: POTASSIUM CHLORIDE 20 MEQ POWDER PACKET GT SCH (08:13)
[2019-12-19] MEDS: COD LIVER OIL/ZINC OXIDE OINT 113 GM TUBE TOP SCH ×2 (08:14→21:06)
[2019-12-19 20:40] VITALS: BP 154/86
[2019-12-19] MEDS: FERROUS SULFATE 330 MG/7.5 ML UDC- FOR SA ONLY GT SCH (21:05)
[2019-12-19] MEDS: ATORVASTATIN 10 MG TABLET GT SCH (21:06)
[2019-12-20] MEDS: REFRESH EYE RIGHTEYE SCH ×6 (00:42→20:40)
[2019-12-20] MEDS: POLYVINYL ALCOHOL OPHT DROPS 15 ML BOTTLE EACHEYE SCH ×7 (00:42→23:58)
[2019-12-20] MEDS: PANTOPRAZOLE ORAL SUSPENSION 40 MG SUSPDR.PKT GT SCH (05:09)
[2019-12-20] MEDS: LEVOTHYROXINE SODIUM 50 MCG TABLET GT SCH (05:09)
[2019-12-20] MEDS: INSULIN GLARGINE,HUM 300 UNITS/3 ML CARTRIDGE SQ SCH ×2 (05:28→17:45)
[2019-12-20] MEDS: BLOOD SUGAR DIAGNOSTIC 1 EACH STRIP VI SCH ×3 (05:28→21:08)
[2019-12-20] MEDS: GLUCERNA 1.2 1000ML LIQUID GT PRN ×2 (05:29→18:55)
[2019-12-20] MEDS: INSULIN REGULAR, HUMAN 300 UNIT/3 ML VIAL SQ PRN ×3 (05:29→21:10)
[2019-12-20 07:36] VITALS: BP 119/73
[2019-12-20] MEDS: DOCUSATE SODIUM 100 MG/10 ML LIQUID UDC GT SCH ×2 (08:10→20:40)
[2019-12-20] MEDS: ACIDOPHILUS/BULGARICUS CHEW TAB GT SCH ×2 (08:12→20:40)
[2019-12-20] MEDS: POTASSIUM CHLORIDE 20 MEQ POWDER PACKET GT SCH (08:12)
[2019-12-20] MEDS: BISACODYL 10 MG SUPP.RECT RC SCH (08:12)
[2019-12-20] MEDS: COD LIVER OIL/ZINC OXIDE OINT 113 GM TUBE TOP SCH ×2 (08:13→20:40)
[2019-12-20] MEDS: HYDROGEN PEROXIDE 3% 118 ML BOTTLE TP SCH ×2 (08:50→18:55)
[2019-12-20 20:22] VITALS: BP 154/78
[2019-12-20] MEDS: ATORVASTATIN 10 MG TABLET GT SCH (20:40)
[2019-12-20] MEDS: FERROUS SULFATE 330 MG/7.5 ML UDC- FOR SA ONLY GT SCH (20:40)
[2019-12-21] MEDS: REFRESH EYE RIGHTEYE SCH ×6 (01:00→21:01)
[2019-12-21] MEDS: POLYVINYL ALCOHOL OPHT DROPS 15 ML BOTTLE EACHEYE SCH ×6 (04:54→23:08)
[2019-12-21] MEDS: PANTOPRAZOLE ORAL SUSPENSION 40 MG SUSPDR.PKT GT SCH (05:19)
[2019-12-21] MEDS: LEVOTHYROXINE SODIUM 50 MCG TABLET GT SCH (05:19)
[2019-12-21] MEDS: BLOOD SUGAR DIAGNOSTIC 1 EACH STRIP VI SCH ×3 (05:21→21:18)
[2019-12-21] MEDS: INSULIN GLARGINE,HUM 300 UNITS/3 ML CARTRIDGE SQ SCH ×2 (05:23→17:43)
[2019-12-21 07:36] VITALS: BP 121/76
[2019-12-21] MEDS: DOCUSATE SODIUM 100 MG/10 ML LIQUID UDC GT SCH ×2 (08:45→21:01)
[2019-12-21] MEDS: ACIDOPHILUS/BULGARICUS CHEW TAB GT SCH ×2 (08:46→21:01)
[2019-12-21] MEDS: COD LIVER OIL/ZINC OXIDE OINT 113 GM TUBE TOP SCH ×2 (08:47→21:01)
[2019-12-21] MEDS: POTASSIUM CHLORIDE 20 MEQ POWDER PACKET GT SCH (08:47)
[2019-12-21] MEDS: HYDROGEN PEROXIDE 3% 118 ML BOTTLE TP SCH ×2 (08:51→21:09)
[2019-12-21] MEDS: INSULIN REGULAR, HUMAN 300 UNIT/3 ML VIAL SQ PRN ×2 (14:37→21:30)
[2019-12-21 20:17] VITALS: BP 149/78
[2019-12-21] MEDS: ATORVASTATIN 10 MG TABLET GT SCH (21:01)
[2019-12-21] MEDS: FERROUS SULFATE 330 MG/7.5 ML UDC- FOR SA ONLY GT SCH (21:01)
[2019-12-21] MEDS: GLUCERNA 1.2 1000ML LIQUID GT PRN (23:08)
[2019-12-22] MEDS: REFRESH EYE RIGHTEYE SCH ×6 (00:07→20:52)
[2019-12-22] MEDS: POLYVINYL ALCOHOL OPHT DROPS 15 ML BOTTLE EACHEYE SCH ×6 (04:05→23:08)
[2019-12-22] MEDS: LEVOTHYROXINE SODIUM 50 MCG TABLET GT SCH (05:32)
[2019-12-22] MEDS: BLOOD SUGAR DIAGNOSTIC 1 EACH STRIP VI SCH ×3 (05:32→21:09)
[2019-12-22] MEDS: PANTOPRAZOLE ORAL SUSPENSION 40 MG SUSPDR.PKT GT SCH (05:32)
[2019-12-22] MEDS: INSULIN REGULAR, HUMAN 300 UNIT/3 ML VIAL SQ PRN ×3 (05:32→21:10)
[2019-12-22] MEDS: INSULIN GLARGINE,HUM 300 UNITS/3 ML CARTRIDGE SQ SCH ×2 (05:33→17:41)
[2019-12-22 08:06] VITALS: BP 138/84
[2019-12-22] MEDS: DOCUSATE SODIUM 100 MG/10 ML LIQUID UDC GT SCH ×2 (08:59→20:52)
[2019-12-22] MEDS: ACIDOPHILUS/BULGARICUS CHEW TAB GT SCH ×2 (08:59→20:52)
[2019-12-22] MEDS: BISACODYL 10 MG SUPP.RECT RC SCH (09:01)
[2019-12-22] MEDS: POTASSIUM CHLORIDE 20 MEQ POWDER PACKET GT SCH (09:01)
[2019-12-22] MEDS: COD LIVER OIL/ZINC OXIDE OINT 113 GM TUBE TOP SCH ×2 (09:02→20:52)
[2019-12-22] MEDS: HYDROGEN PEROXIDE 3% 118 ML BOTTLE TP SCH ×2 (09:37→20:50)
[2019-12-22 20:12] VITALS: BP 141/77
[2019-12-22] MEDS: FERROUS SULFATE 330 MG/7.5 ML UDC- FOR SA ONLY GT SCH (20:52)
[2019-12-22] MEDS: ATORVASTATIN 10 MG TABLET GT SCH (20:52)
[2019-12-22] MEDS: GLUCERNA 1.2 1000ML LIQUID GT PRN (21:52)
[2019-12-23] MEDS: REFRESH EYE RIGHTEYE SCH ×6 (00:03→21:21)
[2019-12-23] MEDS: POLYVINYL ALCOHOL OPHT DROPS 15 ML BOTTLE EACHEYE SCH ×6 (04:05→23:09)
[2019-12-23] MEDS: PANTOPRAZOLE ORAL SUSPENSION 40 MG SUSPDR.PKT GT SCH (05:29)
[2019-12-23] MEDS: LEVOTHYROXINE SODIUM 50 MCG TABLET GT SCH (05:29)
[2019-12-23] MEDS: INSULIN REGULAR, HUMAN 300 UNIT/3 ML VIAL SQ PRN ×3 (05:29→21:28)
[2019-12-23] MEDS: BLOOD SUGAR DIAGNOSTIC 1 EACH STRIP VI SCH ×3 (05:30→21:28)
[2019-12-23] MEDS: INSULIN GLARGINE,HUM 300 UNITS/3 ML CARTRIDGE SQ SCH ×2 (05:30→17:17)
[2019-12-23 07:49] VITALS: BP 121/77
[2019-12-23] MEDS: DOCUSATE SODIUM 100 MG/10 ML LIQUID UDC GT SCH ×2 (08:28→21:21)
[2019-12-23] MEDS: ACIDOPHILUS/BULGARICUS CHEW TAB GT SCH ×2 (08:29→21:21)
[2019-12-23] MEDS: COD LIVER OIL/ZINC OXIDE OINT 113 GM TUBE TOP SCH ×2 (08:34→21:21)
[2019-12-23] MEDS: POTASSIUM CHLORIDE 20 MEQ POWDER PACKET GT SCH (08:44)
[2019-12-23] MEDS: HYDROGEN PEROXIDE 3% 118 ML BOTTLE TP SCH ×2 (09:00→21:25)
[2019-12-23 20:09] VITALS: BP 149/78
[2019-12-23] MEDS: FERROUS SULFATE 330 MG/7.5 ML UDC- FOR SA ONLY GT SCH (21:21)
[2019-12-23] MEDS: ATORVASTATIN 10 MG TABLET GT SCH (21:21)
[2019-12-23] MEDS: GLUCERNA 1.2 1000ML LIQUID GT PRN (21:42)
[2019-12-24] MEDS: REFRESH EYE RIGHTEYE SCH ×6 (01:07→20:41)
[2019-12-24] MEDS: POLYVINYL ALCOHOL OPHT DROPS 15 ML BOTTLE EACHEYE SCH ×5 (04:11→20:34)
[2019-12-24] MEDS: INSULIN GLARGINE,HUM 300 UNITS/3 ML CARTRIDGE SQ SCH ×2 (05:24→17:22)
[2019-12-24] MEDS: BLOOD SUGAR DIAGNOSTIC 1 EACH STRIP VI SCH ×3 (05:25→22:35)
[2019-12-24] MEDS: LEVOTHYROXINE SODIUM 50 MCG TABLET GT SCH (05:25)
[2019-12-24] MEDS: INSULIN REGULAR, HUMAN 300 UNIT/3 ML VIAL SQ PRN ×3 (05:25→22:36)
[2019-12-24] MEDS: PANTOPRAZOLE ORAL SUSPENSION 40 MG SUSPDR.PKT GT SCH (05:25)
[2019-12-24 07:33] VITALS: BP 105/65
[2019-12-24] MEDS: HYDROGEN PEROXIDE 3% 118 ML BOTTLE TP SCH ×2 (08:05→21:45)
[2019-12-24] MEDS: POTASSIUM CHLORIDE 20 MEQ POWDER PACKET GT SCH (08:28)
[2019-12-24] MEDS: DOCUSATE SODIUM 100 MG/10 ML LIQUID UDC GT SCH ×2 (08:28→20:34)
[2019-12-24] MEDS: ACIDOPHILUS/BULGARICUS CHEW TAB GT SCH ×2 (08:28→20:38)
[2019-12-24] MEDS: BISACODYL 10 MG SUPP.RECT RC SCH (08:29)
[2019-12-24] MEDS: COD LIVER OIL/ZINC OXIDE OINT 113 GM TUBE TOP SCH ×2 (08:29→20:41)
[2019-12-24] MEDS: GLUCERNA 1.2 1000ML LIQUID GT PRN (17:55)
[2019-12-24 19:56] VITALS: BP 133/73
[2019-12-24] MEDS: FERROUS SULFATE 330 MG/7.5 ML UDC- FOR SA ONLY GT SCH (20:34)
[2019-12-24] MEDS: ATORVASTATIN 10 MG TABLET GT SCH (20:40)
[2019-12-25] MEDS: REFRESH EYE RIGHTEYE SCH ×6 (01:57→21:46)
[2019-12-25] MEDS: POLYVINYL ALCOHOL OPHT DROPS 15 ML BOTTLE EACHEYE SCH ×6 (04:32→20:00)
[2019-12-25] MEDS: LEVOTHYROXINE SODIUM 50 MCG TABLET GT SCH (05:45)
[2019-12-25] MEDS: PANTOPRAZOLE ORAL SUSPENSION 40 MG SUSPDR.PKT GT SCH (05:45)
[2019-12-25] MEDS: INSULIN GLARGINE,HUM 300 UNITS/3 ML CARTRIDGE SQ SCH ×2 (05:45→17:52)
[2019-12-25] MEDS: BLOOD SUGAR DIAGNOSTIC 1 EACH STRIP VI SCH ×3 (05:46→22:08)
[2019-12-25] MEDS: INSULIN REGULAR, HUMAN 300 UNIT/3 ML VIAL SQ PRN ×3 (05:47→22:12)
[2019-12-25 07:26] VITALS: BP 104/62
[2019-12-25] MEDS: DOCUSATE SODIUM 100 MG/10 ML LIQUID UDC GT SCH ×2 (08:36→21:43)
[2019-12-25] MEDS: COD LIVER OIL/ZINC OXIDE OINT 113 GM TUBE TOP SCH ×2 (08:37→21:46)
[2019-12-25] MEDS: POTASSIUM CHLORIDE 20 MEQ POWDER PACKET GT SCH (08:37)
[2019-12-25] MEDS: ACIDOPHILUS/BULGARICUS CHEW TAB GT SCH ×2 (08:37→21:44)
[2019-12-25] MEDS: HYDROGEN PEROXIDE 3% 118 ML BOTTLE TP SCH ×2 (09:00→21:05)
--- NOTE | 2019-12-25 16:40 | NUR ---
SHAUN spoke with Libertad at Dr. Bass's office, , and scheduled patient's annual optometry appointment for 01/10/2020.
[2019-12-25 20:07] VITALS: BP 144/75
[2019-12-25] MEDS: FERROUS SULFATE 330 MG/7.5 ML UDC- FOR SA ONLY GT SCH (21:44)
[2019-12-25] MEDS: ATORVASTATIN 10 MG TABLET GT SCH (21:46)
[2019-12-26] MEDS: POLYVINYL ALCOHOL OPHT DROPS 15 ML BOTTLE EACHEYE SCH ×6 (00:20→20:00)
[2019-12-26] MEDS: REFRESH EYE RIGHTEYE SCH ×6 (01:00→21:07)
[2019-12-26] MEDS: LEVOTHYROXINE SODIUM 50 MCG TABLET GT SCH (06:04)
[2019-12-26] MEDS: PANTOPRAZOLE ORAL SUSPENSION 40 MG SUSPDR.PKT GT SCH (06:04)
[2019-12-26] MEDS: INSULIN GLARGINE,HUM 300 UNITS/3 ML CARTRIDGE SQ SCH ×2 (06:05→17:42)
[2019-12-26] MEDS: BLOOD SUGAR DIAGNOSTIC 1 EACH STRIP VI SCH ×3 (06:05→22:15)
[2019-12-26] MEDS: INSULIN REGULAR, HUMAN 300 UNIT/3 ML VIAL SQ PRN ×3 (06:07→22:17)
[2019-12-26] MEDS: HYDROGEN PEROXIDE 3% 118 ML BOTTLE TP SCH ×2 (07:10→19:00)
[2019-12-26 07:51] VITALS: BP 92/53
[2019-12-26] MEDS: BISACODYL 10 MG SUPP.RECT RC SCH (08:15)
[2019-12-26] MEDS: ACIDOPHILUS/BULGARICUS CHEW TAB GT SCH ×2 (08:15→21:05)
[2019-12-26] MEDS: DOCUSATE SODIUM 100 MG/10 ML LIQUID UDC GT SCH ×2 (08:15→21:04)
[2019-12-26] MEDS: POTASSIUM CHLORIDE 20 MEQ POWDER PACKET GT SCH (08:15)
[2019-12-26] MEDS: COD LIVER OIL/ZINC OXIDE OINT 113 GM TUBE TOP SCH ×2 (08:16→21:07)
[2019-12-26] MEDS: IPRATROPIUM BROMIDE 0.5 MG/2.5 ML NEBU NEB PRN (19:00)
[2019-12-26] MEDS: ALBUTEROL SULFATE 2.5 MG/3 ML NEBU NEB PRN (19:00)
[2019-12-26 20:09] VITALS: BP 140/79
[2019-12-26] MEDS: ATORVASTATIN 10 MG TABLET GT SCH (21:05)
[2019-12-26] MEDS: FERROUS SULFATE 330 MG/7.5 ML UDC- FOR SA ONLY GT SCH (21:05)
[2019-12-27] MEDS: POLYVINYL ALCOHOL OPHT DROPS 15 ML BOTTLE EACHEYE SCH ×7 (00:07→23:15)
[2019-12-27] MEDS: REFRESH EYE RIGHTEYE SCH ×6 (01:37→21:23)
[2019-12-27] MEDS: PANTOPRAZOLE ORAL SUSPENSION 40 MG SUSPDR.PKT GT SCH (05:55)
[2019-12-27] MEDS: LEVOTHYROXINE SODIUM 50 MCG TABLET GT SCH (05:55)
[2019-12-27] MEDS: BLOOD SUGAR DIAGNOSTIC 1 EACH STRIP VI SCH ×3 (05:57→22:32)
[2019-12-27] MEDS: INSULIN GLARGINE,HUM 300 UNITS/3 ML CARTRIDGE SQ SCH ×2 (05:57→18:07)
[2019-12-27] MEDS: INSULIN REGULAR, HUMAN 300 UNIT/3 ML VIAL SQ PRN ×3 (06:00→22:33)
[2019-12-27] MEDS: HYDROGEN PEROXIDE 3% 118 ML BOTTLE TP SCH ×2 (07:31→21:33)
[2019-12-27 07:52] VITALS: BP 121/75
[2019-12-27] MEDS: DOCUSATE SODIUM 100 MG/10 ML LIQUID UDC GT SCH ×2 (08:38→21:19)
[2019-12-27] MEDS: ACIDOPHILUS/BULGARICUS CHEW TAB GT SCH ×2 (08:38→21:22)
[2019-12-27] MEDS: COD LIVER OIL/ZINC OXIDE OINT 113 GM TUBE TOP SCH ×2 (08:38→21:23)
[2019-12-27] MEDS: POTASSIUM CHLORIDE 20 MEQ POWDER PACKET GT SCH (08:38)
--- NOTE | 2019-12-27 19:07 | NUR ---
NEW ORDER CARRIED OUT TO INCREASE LIPITOR TO 20MG AT H.S.FROM DR PADGETT.
[2019-12-27 20:08] VITALS: BP 144/81
[2019-12-27] MEDS: FERROUS SULFATE 330 MG/7.5 ML UDC- FOR SA ONLY GT SCH (21:21)
[2019-12-27] MEDS: ATORVASTATIN 20 MG TABLET PO SCH (21:23)
[2019-12-28] MEDS: REFRESH EYE RIGHTEYE SCH ×6 (01:00→21:59)
[2019-12-28] MEDS: POLYVINYL ALCOHOL OPHT DROPS 15 ML BOTTLE EACHEYE SCH ×5 (04:00→20:00)
[2019-12-28] MEDS: PANTOPRAZOLE ORAL SUSPENSION 40 MG SUSPDR.PKT GT SCH (06:01)
[2019-12-28] MEDS: LEVOTHYROXINE SODIUM 50 MCG TABLET GT SCH (06:01)
[2019-12-28] MEDS: BLOOD SUGAR DIAGNOSTIC 1 EACH STRIP VI SCH ×3 (06:02→22:31)
[2019-12-28] MEDS: INSULIN GLARGINE,HUM 300 UNITS/3 ML CARTRIDGE SQ SCH ×2 (06:02→17:54)
[2019-12-28 07:51] VITALS: BP 113/68
[2019-12-28] MEDS: DOCUSATE SODIUM 100 MG/10 ML LIQUID UDC GT SCH ×2 (08:29→21:58)
[2019-12-28] MEDS: ACIDOPHILUS/BULGARICUS CHEW TAB GT SCH ×2 (08:29→21:58)
[2019-12-28] MEDS: POTASSIUM CHLORIDE 20 MEQ POWDER PACKET GT SCH (08:29)
[2019-12-28] MEDS: COD LIVER OIL/ZINC OXIDE OINT 113 GM TUBE TOP SCH ×2 (08:30→21:59)
[2019-12-28] MEDS: BISACODYL 10 MG SUPP.RECT RC SCH (08:30)
[2019-12-28] MEDS: HYDROGEN PEROXIDE 3% 118 ML BOTTLE TP SCH ×2 (09:29→21:15)
[2019-12-28] MEDS: INSULIN REGULAR, HUMAN 300 UNIT/3 ML VIAL SQ PRN (13:23)
--- NOTE | 2019-12-28 16:05 | NUR ---
SEEN AND EXAMINED BY ANCELMO Crane) AND WITH [place].
[2019-12-28] MEDS: GLUCERNA 1.2 1000ML LIQUID GT PRN (16:30)
[2019-12-28] MEDS: FERROUS SULFATE 330 MG/7.5 ML UDC- FOR SA ONLY GT SCH (21:58)
[2019-12-28] MEDS: ATORVASTATIN 20 MG TABLET PO SCH (21:58)
[2019-12-28 22:18] VITALS: BP 130/81
[2019-12-29] MEDS: REFRESH EYE RIGHTEYE SCH ×6 (01:04→21:26)
[2019-12-29] MEDS: POLYVINYL ALCOHOL OPHT DROPS 15 ML BOTTLE EACHEYE SCH ×6 (04:37→20:00)
[2019-12-29] MEDS: PANTOPRAZOLE ORAL SUSPENSION 40 MG SUSPDR.PKT GT SCH (05:44)
[2019-12-29] MEDS: BLOOD SUGAR DIAGNOSTIC 1 EACH STRIP VI SCH ×3 (05:45→21:46)
[2019-12-29] MEDS: LEVOTHYROXINE SODIUM 50 MCG TABLET GT SCH (05:45)
[2019-12-29] MEDS: INSULIN GLARGINE,HUM 300 UNITS/3 ML CARTRIDGE SQ SCH ×2 (06:12→18:10)
[2019-12-29] MEDS: INSULIN REGULAR, HUMAN 300 UNIT/3 ML VIAL SQ PRN ×3 (06:13→21:47)
[2019-12-29 07:35] VITALS: BP 117/65
[2019-12-29] MEDS: ACIDOPHILUS/BULGARICUS CHEW TAB GT SCH ×2 (08:54→21:26)
[2019-12-29] MEDS: DOCUSATE SODIUM 100 MG/10 ML LIQUID UDC GT SCH ×2 (08:54→21:23)
[2019-12-29] MEDS: COD LIVER OIL/ZINC OXIDE OINT 113 GM TUBE TOP SCH ×2 (08:55→21:26)
[2019-12-29] MEDS: POTASSIUM CHLORIDE 20 MEQ POWDER PACKET GT SCH (08:55)
[2019-12-29] MEDS: HYDROGEN PEROXIDE 3% 118 ML BOTTLE TP SCH ×2 (09:00→21:12)
[2019-12-29] MEDS: GLUCERNA 1.2 1000ML LIQUID GT PRN (13:52)
[2019-12-29] MEDS: FERROUS SULFATE 330 MG/7.5 ML UDC- FOR SA ONLY GT SCH (21:23)
[2019-12-29] MEDS: ATORVASTATIN 20 MG TABLET PO SCH (21:25)
[2019-12-29 22:14] VITALS: BP 127/66
[2019-12-30] MEDS: POLYVINYL ALCOHOL OPHT DROPS 15 ML BOTTLE EACHEYE SCH ×6 (00:42→20:00)
[2019-12-30] MEDS: REFRESH EYE RIGHTEYE SCH ×6 (00:42→21:41)
[2019-12-30] MEDS: PANTOPRAZOLE ORAL SUSPENSION 40 MG SUSPDR.PKT GT SCH (05:32)
[2019-12-30] MEDS: LEVOTHYROXINE SODIUM 50 MCG TABLET GT SCH (05:32)
[2019-12-30] MEDS: INSULIN GLARGINE,HUM 300 UNITS/3 ML CARTRIDGE SQ SCH ×2 (05:33→17:07)
[2019-12-30] MEDS: BLOOD SUGAR DIAGNOSTIC 1 EACH STRIP VI SCH ×3 (05:34→22:12)
[2019-12-30] MEDS: INSULIN REGULAR, HUMAN 300 UNIT/3 ML VIAL SQ PRN ×3 (05:35→22:14)
[2019-12-30 07:27] VITALS: BP 101/64
[2019-12-30] MEDS: HYDROGEN PEROXIDE 3% 118 ML BOTTLE TP SCH ×2 (08:12→21:09)
[2019-12-30] MEDS: DOCUSATE SODIUM 100 MG/10 ML LIQUID UDC GT SCH ×2 (08:27→21:41)
[2019-12-30] MEDS: POTASSIUM CHLORIDE 20 MEQ POWDER PACKET GT SCH (08:28)
[2019-12-30] MEDS: ACIDOPHILUS/BULGARICUS CHEW TAB GT SCH ×2 (08:28→21:41)
[2019-12-30] MEDS: BISACODYL 10 MG SUPP.RECT RC SCH (08:29)
[2019-12-30] MEDS: COD LIVER OIL/ZINC OXIDE OINT 113 GM TUBE TOP SCH ×2 (08:29→21:41)
[2019-12-30] MEDS: GLUCERNA 1.2 1000ML LIQUID GT PRN (14:05)
[2019-12-30] MEDS: ATORVASTATIN 20 MG TABLET PO SCH (21:41)
[2019-12-30] MEDS: FERROUS SULFATE 330 MG/7.5 ML UDC- FOR SA ONLY GT SCH (21:41)
[2019-12-30 22:17] VITALS: BP 127/80
[2019-12-31] MEDS: REFRESH EYE RIGHTEYE SCH ×6 (01:05→21:11)
[2019-12-31] MEDS: POLYVINYL ALCOHOL OPHT DROPS 15 ML BOTTLE EACHEYE SCH ×6 (04:17→20:00)
[2019-12-31] MEDS: PANTOPRAZOLE ORAL SUSPENSION 40 MG SUSPDR.PKT GT SCH (05:22)
[2019-12-31] MEDS: LEVOTHYROXINE SODIUM 50 MCG TABLET GT SCH (05:22)
[2019-12-31] MEDS: BLOOD SUGAR DIAGNOSTIC 1 EACH STRIP VI SCH ×3 (05:22→22:08)
[2019-12-31] MEDS: INSULIN REGULAR, HUMAN 300 UNIT/3 ML VIAL SQ PRN ×3 (05:27→22:12)
[2019-12-31] MEDS: INSULIN GLARGINE,HUM 300 UNITS/3 ML CARTRIDGE SQ SCH ×2 (05:30→17:04)
[2019-12-31 07:33] VITALS: BP 95/62
[2019-12-31] MEDS: ACIDOPHILUS/BULGARICUS CHEW TAB GT SCH ×2 (08:11→21:11)
[2019-12-31] MEDS: DOCUSATE SODIUM 100 MG/10 ML LIQUID UDC GT SCH ×2 (08:11→21:10)
[2019-12-31] MEDS: POTASSIUM CHLORIDE 20 MEQ POWDER PACKET GT SCH (08:11)
[2019-12-31] MEDS: COD LIVER OIL/ZINC OXIDE OINT 113 GM TUBE TOP SCH ×2 (08:12→21:11)
[2019-12-31] MEDS: HYDROGEN PEROXIDE 3% 118 ML BOTTLE TP SCH ×2 (09:00→21:32)
[2019-12-31] MEDS: GLUCERNA 1.2 1000ML LIQUID GT PRN (11:11)
[2019-12-31 20:19] VITALS: BP 149/77
[2019-12-31] MEDS: FERROUS SULFATE 330 MG/7.5 ML UDC- FOR SA ONLY GT SCH (21:10)
[2019-12-31] MEDS: ATORVASTATIN 20 MG TABLET PO SCH (21:11)
[2020-01-01] MEDS: REFRESH EYE RIGHTEYE SCH ×6 (01:00→20:43)
[2020-01-01] MEDS: POLYVINYL ALCOHOL OPHT DROPS 15 ML BOTTLE EACHEYE SCH ×6 (04:12→20:43)
[2020-01-01] MEDS: PANTOPRAZOLE ORAL SUSPENSION 40 MG SUSPDR.PKT GT SCH (05:42)
[2020-01-01] MEDS: BLOOD SUGAR DIAGNOSTIC 1 EACH STRIP VI SCH ×3 (05:42→22:56)
[2020-01-01] MEDS: LEVOTHYROXINE SODIUM 50 MCG TABLET GT SCH (05:42)
[2020-01-01] MEDS: INSULIN GLARGINE,HUM 300 UNITS/3 ML CARTRIDGE SQ SCH ×2 (05:55→17:36)
[2020-01-01] MEDS: HYDROGEN PEROXIDE 3% 118 ML BOTTLE TP SCH ×2 (07:13→20:48)
[2020-01-01 07:28] VITALS: BP 99/63
[2020-01-01] MEDS: POTASSIUM CHLORIDE 20 MEQ POWDER PACKET GT SCH (08:08)
[2020-01-01] MEDS: ACIDOPHILUS/BULGARICUS CHEW TAB GT SCH ×2 (08:08→20:43)
[2020-01-01] MEDS: DOCUSATE SODIUM 100 MG/10 ML LIQUID UDC GT SCH ×2 (08:08→20:43)
[2020-01-01] MEDS: BISACODYL 10 MG SUPP.RECT RC SCH (08:09)
[2020-01-01] MEDS: COD LIVER OIL/ZINC OXIDE OINT 113 GM TUBE TOP SCH ×2 (08:13→20:43)
[2020-01-01] MEDS: GLUCERNA 1.2 1000ML LIQUID GT PRN (13:00)
[2020-01-01] MEDS: INSULIN REGULAR, HUMAN 300 UNIT/3 ML VIAL SQ PRN ×2 (14:30→22:58)
--- NOTE | 2020-01-01 15:43 | NUR ---
INTERDISCIPLINARY PLAN OF CARE CONFERENCE was held today. Patient's daughter was not available to participate in the meeting. Dr. Nolan and the Interdisciplinary Team reviewed the current plan of care in detail. RN reported on patient's medical condition, range of BS findings, and adjustment in medications. See RN IDT conference notes. No major changes in medical condition were reported by nursing or by other disciplines. See all other disciplines IDT notes and physician's progress notes for additional details.
[2020-01-01 20:00] VITALS: BP 154/87
[2020-01-01] MEDS: FERROUS SULFATE 330 MG/7.5 ML UDC- FOR SA ONLY GT SCH (20:43)
[2020-01-01] MEDS: ATORVASTATIN 20 MG TABLET PO SCH (21:00)
[2020-01-02] MEDS: POLYVINYL ALCOHOL OPHT DROPS 15 ML BOTTLE EACHEYE SCH ×6 (00:08→20:00)
[2020-01-02] MEDS: REFRESH EYE RIGHTEYE SCH ×6 (01:49→21:18)
[2020-01-02] MEDS: LEVOTHYROXINE SODIUM 50 MCG TABLET GT SCH (05:04)
[2020-01-02] MEDS: PANTOPRAZOLE ORAL SUSPENSION 40 MG SUSPDR.PKT GT SCH (05:04)
[2020-01-02] MEDS: BLOOD SUGAR DIAGNOSTIC 1 EACH STRIP VI SCH ×3 (05:29→21:23)
[2020-01-02] MEDS: INSULIN REGULAR, HUMAN 300 UNIT/3 ML VIAL SQ PRN ×3 (05:38→23:01)
[2020-01-02] MEDS: INSULIN GLARGINE,HUM 300 UNITS/3 ML CARTRIDGE SQ SCH ×2 (05:49→18:24)
[2020-01-02] MEDS: GLUCERNA 1.2 1000ML LIQUID GT PRN (07:19)
[2020-01-02 07:55] VITALS: BP 135/85
[2020-01-02] MEDS: HYDROGEN PEROXIDE 3% 118 ML BOTTLE TP SCH ×2 (09:27→20:58)
[2020-01-02] MEDS: DOCUSATE SODIUM 100 MG/10 ML LIQUID UDC GT SCH ×2 (09:53→21:17)
[2020-01-02] MEDS: ACIDOPHILUS/BULGARICUS CHEW TAB GT SCH ×2 (09:53→21:18)
[2020-01-02] MEDS: POTASSIUM CHLORIDE 20 MEQ POWDER PACKET GT SCH (09:54)
[2020-01-02] MEDS: COD LIVER OIL/ZINC OXIDE OINT 113 GM TUBE TOP SCH ×2 (09:55→21:18)
[2020-01-02 20:00] VITALS: BP 133/70
[2020-01-02] MEDS: FERROUS SULFATE 330 MG/7.5 ML UDC- FOR SA ONLY GT SCH (21:17)
[2020-01-02] MEDS: ATORVASTATIN 20 MG TABLET PO SCH (21:18)
[2020-01-03] MEDS: POLYVINYL ALCOHOL OPHT DROPS 15 ML BOTTLE EACHEYE SCH ×6 (00:21→20:28)
[2020-01-03] MEDS: GLUCERNA 1.2 1000ML LIQUID GT PRN (00:44)
[2020-01-03] MEDS: REFRESH EYE RIGHTEYE SCH ×6 (01:06→20:31)
[2020-01-03] MEDS: LEVOTHYROXINE SODIUM 50 MCG TABLET GT SCH (05:12)
[2020-01-03] MEDS: PANTOPRAZOLE ORAL SUSPENSION 40 MG SUSPDR.PKT GT SCH (05:12)
[2020-01-03] MEDS: BLOOD SUGAR DIAGNOSTIC 1 EACH STRIP VI SCH ×3 (05:12→22:44)
[2020-01-03] MEDS: INSULIN GLARGINE,HUM 300 UNITS/3 ML CARTRIDGE SQ SCH ×2 (05:17→17:34)
[2020-01-03] MEDS: INSULIN REGULAR, HUMAN 300 UNIT/3 ML VIAL SQ PRN ×3 (05:18→22:44)
[2020-01-03 08:00] VITALS: BP 127/65
[2020-01-03] MEDS: DOCUSATE SODIUM 100 MG/10 ML LIQUID UDC GT SCH ×2 (08:25→20:30)
[2020-01-03] MEDS: BISACODYL 10 MG SUPP.RECT RC SCH (08:25)
[2020-01-03] MEDS: COD LIVER OIL/ZINC OXIDE OINT 113 GM TUBE TOP SCH ×2 (08:25→20:31)
[2020-01-03] MEDS: POTASSIUM CHLORIDE 20 MEQ POWDER PACKET GT SCH (08:25)
[2020-01-03] MEDS: ACIDOPHILUS/BULGARICUS CHEW TAB GT SCH ×2 (08:25→20:31)
[2020-01-03] MEDS: HYDROGEN PEROXIDE 3% 118 ML BOTTLE TP SCH ×2 (09:27→20:46)
[2020-01-03 20:00] VITALS: BP 112/64
[2020-01-03] MEDS: FERROUS SULFATE 330 MG/7.5 ML UDC- FOR SA ONLY GT SCH (20:30)
[2020-01-03] MEDS: ATORVASTATIN 20 MG TABLET PO SCH (20:31)
[2020-01-04] MEDS: POLYVINYL ALCOHOL OPHT DROPS 15 ML BOTTLE EACHEYE SCH ×7 (00:41→23:27)
[2020-01-04] MEDS: GLUCERNA 1.2 1000ML LIQUID GT PRN ×2 (00:41→22:11)
[2020-01-04] MEDS: REFRESH EYE RIGHTEYE SCH ×6 (00:41→21:11)
[2020-01-04] MEDS: BLOOD SUGAR DIAGNOSTIC 1 EACH STRIP VI SCH ×3 (05:10→21:19)
[2020-01-04] MEDS: PANTOPRAZOLE ORAL SUSPENSION 40 MG SUSPDR.PKT GT SCH (05:10)
[2020-01-04] MEDS: LEVOTHYROXINE SODIUM 50 MCG TABLET GT SCH (05:10)
[2020-01-04] MEDS: INSULIN GLARGINE,HUM 300 UNITS/3 ML CARTRIDGE SQ SCH ×2 (05:15→17:31)
[2020-01-04] MEDS: INSULIN REGULAR, HUMAN 300 UNIT/3 ML VIAL SQ PRN ×3 (05:16→21:24)
[2020-01-04 07:39] VITALS: BP 108/64
[2020-01-04] MEDS: ACIDOPHILUS/BULGARICUS CHEW TAB GT SCH ×2 (08:17→21:11)
[2020-01-04] MEDS: DOCUSATE SODIUM 100 MG/10 ML LIQUID UDC GT SCH ×2 (08:17→21:09)
[2020-01-04] MEDS: COD LIVER OIL/ZINC OXIDE OINT 113 GM TUBE TOP SCH ×2 (08:18→21:11)
[2020-01-04] MEDS: POTASSIUM CHLORIDE 20 MEQ POWDER PACKET GT SCH (08:18)
[2020-01-04] MEDS: HYDROGEN PEROXIDE 3% 118 ML BOTTLE TP SCH ×2 (09:08→21:21)
[2020-01-04 20:23] VITALS: BP 121/73
--- NOTE | 2020-01-04 20:25 | NUR ---
PT RECEIVED ON CONTINUOUS VENT, TRACH CARE DONE. TRACH IN PLACED AND SECURED WITH TRACH TIE. BACK UP TRACH AND AMBU BAG AT BEDSIDE. BS MILD RHONCHI. SUCTION SMALL AMOUNT THICK PALE YELLOW SECRETIONS. VENT CHECKED, ALARMS WORKING WELL AND AUDIBLE. NO DISTRESS NOTED AT THIS TIME. WILL CONTINUE TO MONITOR.
[2020-01-04] MEDS: FERROUS SULFATE 330 MG/7.5 ML UDC- FOR SA ONLY GT SCH (21:09)
[2020-01-04] MEDS: ATORVASTATIN 20 MG TABLET PO SCH (21:11)
[2020-01-05] MEDS: REFRESH EYE RIGHTEYE SCH ×6 (01:11→21:26)
[2020-01-05] MEDS: POLYVINYL ALCOHOL OPHT DROPS 15 ML BOTTLE EACHEYE SCH ×5 (04:00→20:00)
[2020-01-05] MEDS: LEVOTHYROXINE SODIUM 50 MCG TABLET GT SCH (05:46)
[2020-01-05] MEDS: PANTOPRAZOLE ORAL SUSPENSION 40 MG SUSPDR.PKT GT SCH (05:46)
[2020-01-05] MEDS: INSULIN GLARGINE,HUM 300 UNITS/3 ML CARTRIDGE SQ SCH ×2 (05:50→17:21)
[2020-01-05] MEDS: BLOOD SUGAR DIAGNOSTIC 1 EACH STRIP VI SCH ×3 (05:52→21:46)
[2020-01-05] MEDS: INSULIN REGULAR, HUMAN 300 UNIT/3 ML VIAL SQ PRN ×3 (05:53→21:50)
[2020-01-05] MEDS: DOCUSATE SODIUM 100 MG/10 ML LIQUID UDC GT SCH ×2 (08:07→21:25)
[2020-01-05] MEDS: ACIDOPHILUS/BULGARICUS CHEW TAB GT SCH ×2 (08:13→21:26)
[2020-01-05] MEDS: POTASSIUM CHLORIDE 20 MEQ POWDER PACKET GT SCH (08:13)
[2020-01-05] MEDS: BISACODYL 10 MG SUPP.RECT RC SCH (08:14)
[2020-01-05] MEDS: COD LIVER OIL/ZINC OXIDE OINT 113 GM TUBE TOP SCH ×2 (08:17→21:27)
[2020-01-05 08:21] VITALS: BP 102/64
[2020-01-05] MEDS: HYDROGEN PEROXIDE 3% 118 ML BOTTLE TP SCH ×2 (09:00→21:40)
[2020-01-05] MEDS: GLUCERNA 1.2 1000ML LIQUID GT PRN (18:07)
[2020-01-05 20:05] VITALS: BP 142/65
[2020-01-05] MEDS: FERROUS SULFATE 330 MG/7.5 ML UDC- FOR SA ONLY GT SCH (21:25)
[2020-01-05] MEDS: ATORVASTATIN 20 MG TABLET PO SCH (21:26)
[2020-01-06] MEDS: POLYVINYL ALCOHOL OPHT DROPS 15 ML BOTTLE EACHEYE SCH ×6 (00:49→20:00)
[2020-01-06] MEDS: REFRESH EYE RIGHTEYE SCH ×6 (00:49→21:16)
[2020-01-06] MEDS: PANTOPRAZOLE ORAL SUSPENSION 40 MG SUSPDR.PKT GT SCH (05:52)
[2020-01-06] MEDS: LEVOTHYROXINE SODIUM 50 MCG TABLET GT SCH (05:53)
[2020-01-06] MEDS: BLOOD SUGAR DIAGNOSTIC 1 EACH STRIP VI SCH ×3 (05:53→21:20)
[2020-01-06] MEDS: INSULIN GLARGINE,HUM 300 UNITS/3 ML CARTRIDGE SQ SCH ×2 (05:54→17:22)
[2020-01-06 08:03] VITALS: BP 132/80
[2020-01-06] MEDS: DOCUSATE SODIUM 100 MG/10 ML LIQUID UDC GT SCH ×2 (08:42→21:14)
[2020-01-06] MEDS: COD LIVER OIL/ZINC OXIDE OINT 113 GM TUBE TOP SCH ×2 (08:43→21:16)
[2020-01-06] MEDS: ACIDOPHILUS/BULGARICUS CHEW TAB GT SCH ×2 (08:43→21:15)
[2020-01-06] MEDS: POTASSIUM CHLORIDE 20 MEQ POWDER PACKET GT SCH (08:43)
[2020-01-06] MEDS: HYDROGEN PEROXIDE 3% 118 ML BOTTLE TP SCH ×2 (09:10→21:08)
[2020-01-06] MEDS: INSULIN REGULAR, HUMAN 300 UNIT/3 ML VIAL SQ PRN ×2 (14:41→21:21)
[2020-01-06 20:17] VITALS: BP 135/80
[2020-01-06] MEDS: FERROUS SULFATE 330 MG/7.5 ML UDC- FOR SA ONLY GT SCH (21:15)
[2020-01-06] MEDS: ATORVASTATIN 20 MG TABLET PO SCH (21:16)
[2020-01-07] MEDS: POLYVINYL ALCOHOL OPHT DROPS 15 ML BOTTLE EACHEYE SCH ×7 (00:10→23:44)
[2020-01-07] MEDS: REFRESH EYE RIGHTEYE SCH ×6 (01:50→21:22)
[2020-01-07] MEDS: LEVOTHYROXINE SODIUM 50 MCG TABLET GT SCH (05:08)
[2020-01-07] MEDS: PANTOPRAZOLE ORAL SUSPENSION 40 MG SUSPDR.PKT GT SCH (05:08)
[2020-01-07] MEDS: BLOOD SUGAR DIAGNOSTIC 1 EACH STRIP VI SCH ×3 (05:10→21:27)
[2020-01-07] MEDS: INSULIN GLARGINE,HUM 300 UNITS/3 ML CARTRIDGE SQ SCH ×2 (05:10→17:33)
[2020-01-07] MEDS: INSULIN REGULAR, HUMAN 300 UNIT/3 ML VIAL SQ PRN ×2 (05:14→21:28)
[2020-01-07 07:41] VITALS: BP 105/63
[2020-01-07] MEDS: BISACODYL 10 MG SUPP.RECT RC SCH (09:00)
[2020-01-07] MEDS: ACIDOPHILUS/BULGARICUS CHEW TAB GT SCH ×2 (09:00→21:21)
[2020-01-07] MEDS: POTASSIUM CHLORIDE 20 MEQ POWDER PACKET GT SCH (09:00)
[2020-01-07] MEDS: DOCUSATE SODIUM 100 MG/10 ML LIQUID UDC GT SCH ×2 (09:00→21:21)
[2020-01-07] MEDS: COD LIVER OIL/ZINC OXIDE OINT 113 GM TUBE TOP SCH ×2 (09:00→21:22)
[2020-01-07] MEDS: HYDROGEN PEROXIDE 3% 118 ML BOTTLE TP SCH ×2 (09:13→21:38)
[2020-01-07 20:19] VITALS: BP 118/65
[2020-01-07] MEDS: FERROUS SULFATE 330 MG/7.5 ML UDC- FOR SA ONLY GT SCH (21:21)
[2020-01-07] MEDS: ATORVASTATIN 20 MG TABLET PO SCH (21:21)
[2020-01-08] MEDS: REFRESH EYE RIGHTEYE SCH ×6 (00:38→21:36)
[2020-01-08] MEDS: POLYVINYL ALCOHOL OPHT DROPS 15 ML BOTTLE EACHEYE SCH ×5 (04:00→20:00)
[2020-01-08] MEDS: LEVOTHYROXINE SODIUM 50 MCG TABLET GT SCH (06:11)
[2020-01-08] MEDS: BLOOD SUGAR DIAGNOSTIC 1 EACH STRIP VI SCH ×3 (06:11→21:36)
[2020-01-08] MEDS: PANTOPRAZOLE ORAL SUSPENSION 40 MG SUSPDR.PKT GT SCH (06:11)
[2020-01-08] MEDS: INSULIN GLARGINE,HUM 300 UNITS/3 ML CARTRIDGE SQ SCH ×2 (06:25→18:02)
[2020-01-08] MEDS: INSULIN REGULAR, HUMAN 300 UNIT/3 ML VIAL SQ PRN ×3 (06:26→21:47)
[2020-01-08 08:00] VITALS: BP 109/66
[2020-01-08] MEDS: HYDROGEN PEROXIDE 3% 118 ML BOTTLE TP SCH ×2 (08:14→21:12)
[2020-01-08] MEDS: POTASSIUM CHLORIDE 20 MEQ POWDER PACKET GT SCH (08:51)
[2020-01-08] MEDS: COD LIVER OIL/ZINC OXIDE OINT 113 GM TUBE TOP SCH ×2 (08:51→21:36)
[2020-01-08] MEDS: DOCUSATE SODIUM 100 MG/10 ML LIQUID UDC GT SCH ×2 (08:51→21:36)
[2020-01-08] MEDS: ACIDOPHILUS/BULGARICUS CHEW TAB GT SCH ×2 (08:51→21:36)
--- NOTE | 2020-01-08 16:00 | NUR ---
Pt's daughter Mana notified Covid 19 test,was done today,Per daughter is okay to give Flu shot to her Father.
[2020-01-08 20:48] VITALS: BP 123/70
[2020-01-08] MEDS: FERROUS SULFATE 330 MG/7.5 ML UDC- FOR SA ONLY GT SCH (21:36)
[2020-01-08] MEDS: ATORVASTATIN 20 MG TABLET PO SCH (21:36)
[2020-01-09] MEDS: GLUCERNA 1.2 1000ML LIQUID GT PRN ×2 (00:30→22:00)
[2020-01-09] MEDS: REFRESH EYE RIGHTEYE SCH ×6 (01:00→21:43)
[2020-01-09] MEDS: POLYVINYL ALCOHOL OPHT DROPS 15 ML BOTTLE EACHEYE SCH ×6 (04:00→20:00)
[2020-01-09] MEDS: LEVOTHYROXINE SODIUM 50 MCG TABLET GT SCH (05:58)
[2020-01-09] MEDS: PANTOPRAZOLE ORAL SUSPENSION 40 MG SUSPDR.PKT GT SCH (05:58)
[2020-01-09] MEDS: INSULIN GLARGINE,HUM 300 UNITS/3 ML CARTRIDGE SQ SCH ×2 (05:59→17:34)
[2020-01-09] MEDS: BLOOD SUGAR DIAGNOSTIC 1 EACH STRIP VI SCH ×3 (05:59→21:43)
[2020-01-09] MEDS: INSULIN REGULAR, HUMAN 300 UNIT/3 ML VIAL SQ PRN ×3 (06:00→21:46)
[2020-01-09 07:33] VITALS: BP 96/59
[2020-01-09] MEDS: DOCUSATE SODIUM 100 MG/10 ML LIQUID UDC GT SCH ×2 (08:20→21:35)
[2020-01-09] MEDS: ACIDOPHILUS/BULGARICUS CHEW TAB GT SCH ×2 (08:20→21:37)
[2020-01-09] MEDS: POTASSIUM CHLORIDE 20 MEQ POWDER PACKET GT SCH (08:23)
[2020-01-09] MEDS: COD LIVER OIL/ZINC OXIDE OINT 113 GM TUBE TOP SCH ×2 (08:23→21:43)
[2020-01-09] MEDS: BISACODYL 10 MG SUPP.RECT RC SCH (08:28)
[2020-01-09] MEDS: HYDROGEN PEROXIDE 3% 118 ML BOTTLE TP SCH ×2 (08:44→19:11)
--- NOTE | 2020-01-09 18:45 | NUR ---
Pt's daughter Mana was informed the result for Covid19 test was negative.
[2020-01-09 20:22] VITALS: BP 136/71
[2020-01-09] MEDS: FERROUS SULFATE 330 MG/7.5 ML UDC- FOR SA ONLY GT SCH (21:36)
[2020-01-09] MEDS: ATORVASTATIN 20 MG TABLET PO SCH (21:38)
[2020-01-10] MEDS: REFRESH EYE RIGHTEYE SCH ×6 (01:06→21:00)
[2020-01-10] MEDS: POLYVINYL ALCOHOL OPHT DROPS 15 ML BOTTLE EACHEYE SCH ×6 (04:00→20:00)
[2020-01-10] MEDS: LEVOTHYROXINE SODIUM 50 MCG TABLET GT SCH (06:01)
[2020-01-10] MEDS: INSULIN GLARGINE,HUM 300 UNITS/3 ML CARTRIDGE SQ SCH ×2 (06:01→17:32)
[2020-01-10] MEDS: PANTOPRAZOLE ORAL SUSPENSION 40 MG SUSPDR.PKT GT SCH (06:01)
[2020-01-10] MEDS: BLOOD SUGAR DIAGNOSTIC 1 EACH STRIP VI SCH ×3 (06:02→22:14)
[2020-01-10] MEDS: INSULIN REGULAR, HUMAN 300 UNIT/3 ML VIAL SQ PRN ×3 (06:03→22:16)
[2020-01-10] MEDS: HYDROGEN PEROXIDE 3% 118 ML BOTTLE TP SCH ×2 (07:15→21:28)
[2020-01-10 07:58] VITALS: BP 127/73
[2020-01-10] MEDS: ACIDOPHILUS/BULGARICUS CHEW TAB GT SCH ×2 (08:09→21:00)
[2020-01-10] MEDS: COD LIVER OIL/ZINC OXIDE OINT 113 GM TUBE TOP SCH ×2 (08:09→21:00)
[2020-01-10] MEDS: DOCUSATE SODIUM 100 MG/10 ML LIQUID UDC GT SCH ×2 (08:09→21:00)
[2020-01-10] MEDS: POTASSIUM CHLORIDE 20 MEQ POWDER PACKET GT SCH (08:09)
--- NOTE | 2020-01-10 14:00 | NUR ---
SEEN BY AGUEDA Hodge (FOR DR. PADGETT) AND WITH NNO.
[2020-01-10] MEDS: GLUCERNA 1.2 1000ML LIQUID GT PRN (18:03)
--- NOTE | 2020-01-10 18:25 | NUR ---
SEEN BY DR. CARVER AND WITH NEW ORDERS CARRIED OUT.
--- NOTE | 2020-01-10 19:01 | NUR ---
NEW ORDER OBTAINED FROM ANAID JUNAID P.ASarahFOR FLU VACCINE.
[2020-01-10 20:36] VITALS: BP 138/68
[2020-01-10] MEDS: FERROUS SULFATE 330 MG/7.5 ML UDC- FOR SA ONLY GT SCH (21:00)
[2020-01-10] MEDS: ATORVASTATIN 20 MG TABLET PO SCH (21:00)
[2020-01-11] MEDS: REFRESH EYE RIGHTEYE SCH ×6 (01:00→21:50)
[2020-01-11] MEDS: POLYVINYL ALCOHOL OPHT DROPS 15 ML BOTTLE EACHEYE SCH ×6 (04:00→20:00)
[2020-01-11] MEDS: PANTOPRAZOLE ORAL SUSPENSION 40 MG SUSPDR.PKT GT SCH (05:36)
[2020-01-11] MEDS: LEVOTHYROXINE SODIUM 50 MCG TABLET GT SCH (05:36)
[2020-01-11] MEDS: INSULIN GLARGINE,HUM 300 UNITS/3 ML CARTRIDGE SQ SCH ×2 (05:37→17:23)
[2020-01-11] MEDS: BLOOD SUGAR DIAGNOSTIC 1 EACH STRIP VI SCH ×3 (05:37→21:10)
[2020-01-11] MEDS: INSULIN REGULAR, HUMAN 300 UNIT/3 ML VIAL SQ PRN ×3 (05:39→21:14)
[2020-01-11 07:44] VITALS: BP 111/70
[2020-01-11] MEDS: DOCUSATE SODIUM 100 MG/10 ML LIQUID UDC GT SCH ×2 (08:03→21:50)
[2020-01-11] MEDS: ACIDOPHILUS/BULGARICUS CHEW TAB GT SCH ×2 (08:05→21:50)
[2020-01-11] MEDS: POTASSIUM CHLORIDE 20 MEQ POWDER PACKET GT SCH (08:05)
[2020-01-11] MEDS: BISACODYL 10 MG SUPP.RECT RC SCH (08:06)
[2020-01-11] MEDS: COD LIVER OIL/ZINC OXIDE OINT 113 GM TUBE TOP SCH ×2 (08:06→21:50)
[2020-01-11] MEDS: HYDROGEN PEROXIDE 3% 118 ML BOTTLE TP SCH ×2 (08:10→21:20)
--- NOTE | 2020-01-11 15:28 | NUR ---
Patient seen by Dr. Bass on 01/10/2020 for his routine annual eye exam. Please see optometry notes in patient's chart for details.
[2020-01-11] MEDS: GLUCERNA 1.2 1000ML LIQUID GT PRN (17:27)
--- NOTE | 2020-01-11 18:47 | NUR ---
NO A/R TO FLU VACCINE ,AFEBRILE.
[2020-01-11 20:44] VITALS: BP 134/86
[2020-01-11] MEDS: FERROUS SULFATE 330 MG/7.5 ML UDC- FOR SA ONLY GT SCH (21:50)
[2020-01-11] MEDS: ATORVASTATIN 20 MG TABLET PO SCH (21:50)
--- NOTE | 2020-01-11 22:48 | NUR ---
Afebrile, no adverse reactions noted from the flu vaccine.
[2020-01-12] MEDS: REFRESH EYE RIGHTEYE SCH ×6 (01:17→20:37)
[2020-01-12] MEDS: POLYVINYL ALCOHOL OPHT DROPS 15 ML BOTTLE EACHEYE SCH ×6 (04:57→20:35)
[2020-01-12] MEDS: LEVOTHYROXINE SODIUM 50 MCG TABLET GT SCH (05:12)
[2020-01-12] MEDS: PANTOPRAZOLE ORAL SUSPENSION 40 MG SUSPDR.PKT GT SCH (05:12)
[2020-01-12] MEDS: BLOOD SUGAR DIAGNOSTIC 1 EACH STRIP VI SCH ×3 (05:14→21:23)
[2020-01-12] MEDS: INSULIN GLARGINE,HUM 300 UNITS/3 ML CARTRIDGE SQ SCH ×2 (05:15→18:40)
[2020-01-12] MEDS: INSULIN REGULAR, HUMAN 300 UNIT/3 ML VIAL SQ PRN ×3 (05:17→21:25)
[2020-01-12] MEDS: HYDROGEN PEROXIDE 3% 118 ML BOTTLE TP SCH ×2 (07:20→19:05)
[2020-01-12 07:44] VITALS: BP 138/81
[2020-01-12] MEDS: ACIDOPHILUS/BULGARICUS CHEW TAB GT SCH ×2 (08:11→20:35)
[2020-01-12] MEDS: POTASSIUM CHLORIDE 20 MEQ POWDER PACKET GT SCH (08:11)
[2020-01-12] MEDS: DOCUSATE SODIUM 100 MG/10 ML LIQUID UDC GT SCH ×2 (08:11→20:35)
[2020-01-12] MEDS: COD LIVER OIL/ZINC OXIDE OINT 113 GM TUBE TOP SCH ×2 (08:12→20:37)
--- NOTE | 2020-01-12 18:04 | NUR ---
NO A/R TO FLU VACCINE ,AFEBRILE.
[2020-01-12] MEDS: FERROUS SULFATE 330 MG/7.5 ML UDC- FOR SA ONLY GT SCH (20:35)
[2020-01-12] MEDS: ATORVASTATIN 20 MG TABLET PO SCH (20:36)
[2020-01-12 20:49] VITALS: BP 139/68
--- NOTE | 2020-01-12 21:27 | NUR ---
Afebrile, no adverse reactions from flu vaccine, no redness on injection site.
[2020-01-13] MEDS: POLYVINYL ALCOHOL OPHT DROPS 15 ML BOTTLE EACHEYE SCH ×6 (00:51→20:00)
[2020-01-13] MEDS: REFRESH EYE RIGHTEYE SCH ×6 (00:51→21:00)
[2020-01-13] MEDS: LEVOTHYROXINE SODIUM 50 MCG TABLET GT SCH (05:54)
[2020-01-13] MEDS: PANTOPRAZOLE ORAL SUSPENSION 40 MG SUSPDR.PKT GT SCH (05:54)
[2020-01-13] MEDS: BLOOD SUGAR DIAGNOSTIC 1 EACH STRIP VI SCH ×3 (05:55→22:24)
[2020-01-13] MEDS: INSULIN GLARGINE,HUM 300 UNITS/3 ML CARTRIDGE SQ SCH ×2 (05:55→17:32)
[2020-01-13] MEDS: INSULIN REGULAR, HUMAN 300 UNIT/3 ML VIAL SQ PRN ×3 (05:57→22:27)
[2020-01-13] MEDS: HYDROGEN PEROXIDE 3% 118 ML BOTTLE TP SCH ×2 (07:45→20:53)
[2020-01-13 07:46] VITALS: BP 108/64
[2020-01-13] MEDS: DOCUSATE SODIUM 100 MG/10 ML LIQUID UDC GT SCH ×2 (08:30→21:00)
[2020-01-13] MEDS: ACIDOPHILUS/BULGARICUS CHEW TAB GT SCH ×2 (08:31→21:00)
[2020-01-13] MEDS: POTASSIUM CHLORIDE 20 MEQ POWDER PACKET GT SCH (08:31)
[2020-01-13] MEDS: BISACODYL 10 MG SUPP.RECT RC SCH (08:38)
[2020-01-13] MEDS: COD LIVER OIL/ZINC OXIDE OINT 113 GM TUBE TOP SCH ×2 (08:38→21:00)
--- NOTE | 2020-01-13 13:53 | NUR ---
NO A/R TO FLU VACCINE ,AFEBRILE.
[2020-01-13 20:24] VITALS: BP 121/75
[2020-01-13] MEDS: FERROUS SULFATE 330 MG/7.5 ML UDC- FOR SA ONLY GT SCH (21:00)
[2020-01-13] MEDS: ATORVASTATIN 20 MG TABLET PO SCH (21:00)
[2020-01-14] MEDS: POLYVINYL ALCOHOL OPHT DROPS 15 ML BOTTLE EACHEYE SCH ×7 (00:52→23:31)
[2020-01-14] MEDS: REFRESH EYE RIGHTEYE SCH ×6 (01:15→20:44)
[2020-01-14] MEDS: LEVOTHYROXINE SODIUM 50 MCG TABLET GT SCH (05:56)
[2020-01-14] MEDS: PANTOPRAZOLE ORAL SUSPENSION 40 MG SUSPDR.PKT GT SCH (05:56)
[2020-01-14] MEDS: BLOOD SUGAR DIAGNOSTIC 1 EACH STRIP VI SCH ×3 (05:57→21:41)
[2020-01-14] MEDS: INSULIN GLARGINE,HUM 300 UNITS/3 ML CARTRIDGE SQ SCH ×2 (06:21→18:08)
[2020-01-14] MEDS: INSULIN REGULAR, HUMAN 300 UNIT/3 ML VIAL SQ PRN ×3 (06:23→23:30)
[2020-01-14 06:26] LABS: BASOPHILS % (AUTO) 0.4 % (0.0-2.0); EOSINOPHILS # (AUTO) 0.3 K/uL (0.0-0.7); EOSINOPHILS % (AUTO) 4.7 % (0.0-7.0); HEMATOCRIT 35.9 % (36.7-47.1); HEMOGLOBIN 11.8 g/dL (12.5-16.3); LYMPHOCYTES # (AUTO) 1.3 K/uL (20.0-40.0); LYMPHOCYTES % (AUTO) 22.7 % (20.5-51.5); MEAN CORPUSCULAR HGB CONC 33 g/dL (32.5-36.3); MEAN CORPUSCULAR VOLUME 85.4 fL (73.0-96.2); MONOCYTES # (AUTO) 0.4 K/uL (2.0-10.0); MONOCYTES % (AUTO) 7.6 % (0.0-11.0); NEUTROPHILS # (AUTO) 3.7 K/uL (1.8-8.9); NEUTROPHILS % (AUTO) 64.6 % (38.5-71.5); PLATELET COUNT (AUTO) 212 K/uL (152-348); WHITE BLOOD COUNT (AUTO) 5.8 K/uL (3.6-10.2)
[2020-01-14 06:38] LABS: CREATININE 0.7 mg/dL (0.6-1.3); POTASSIUM 3.7 mmol/L (3.5-5.1)
[2020-01-14 06:39] LABS: BILIRUBIN,TOTAL 0.4 mg/dL (0.2-1.0); MAGNESIUM 1.9 mg/dL (1.8-2.4); PHOSPHOROUS 3.6 mg/dL (2.5-4.9); TOTAL PROTEIN, SERUM 7.7 g/dL (6.4-8.2)
--- NOTE | 2020-01-14 06:56 | NUR ---
No A/R to flu vaccine, afebrile.
[2020-01-14 07:46] VITALS: BP 139/89
[2020-01-14 08:00] VITALS: BP 126/74
[2020-01-14] MEDS: DOCUSATE SODIUM 100 MG/10 ML LIQUID UDC GT SCH ×2 (08:25→20:43)
[2020-01-14] MEDS: POTASSIUM CHLORIDE 20 MEQ POWDER PACKET GT SCH (08:26)
[2020-01-14] MEDS: COD LIVER OIL/ZINC OXIDE OINT 113 GM TUBE TOP SCH ×2 (08:26→20:44)
[2020-01-14] MEDS: ACIDOPHILUS/BULGARICUS CHEW TAB GT SCH ×2 (08:26→20:44)
[2020-01-14] MEDS: HYDROGEN PEROXIDE 3% 118 ML BOTTLE TP SCH ×2 (09:43→21:37)
[2020-01-14] MEDS: GLUCERNA 1.2 1000ML LIQUID GT PRN (13:29)
--- NOTE | 2020-01-14 15:47 | NUR ---
SEEN BY ANAID Maguire AND WITH NNO.
[2020-01-14 20:40] VITALS: BP 117/75
[2020-01-14] MEDS: FERROUS SULFATE 330 MG/7.5 ML UDC- FOR SA ONLY GT SCH (20:43)
[2020-01-14] MEDS: ATORVASTATIN 20 MG TABLET PO SCH (20:44)
[2020-01-15] MEDS: REFRESH EYE RIGHTEYE SCH ×6 (01:27→20:39)
[2020-01-15] MEDS: POLYVINYL ALCOHOL OPHT DROPS 15 ML BOTTLE EACHEYE SCH ×5 (04:54→20:34)
[2020-01-15] MEDS: LEVOTHYROXINE SODIUM 50 MCG TABLET GT SCH (05:10)
[2020-01-15] MEDS: PANTOPRAZOLE ORAL SUSPENSION 40 MG SUSPDR.PKT GT SCH (05:10)
[2020-01-15] MEDS: BLOOD SUGAR DIAGNOSTIC 1 EACH STRIP VI SCH ×3 (05:33→21:57)
[2020-01-15] MEDS: INSULIN GLARGINE,HUM 300 UNITS/3 ML CARTRIDGE SQ SCH ×2 (06:05→17:25)
[2020-01-15] MEDS: INSULIN REGULAR, HUMAN 300 UNIT/3 ML VIAL SQ PRN ×3 (06:06→21:58)
[2020-01-15 07:59] VITALS: BP 152/83
[2020-01-15] MEDS: HYDROGEN PEROXIDE 3% 118 ML BOTTLE TP SCH ×2 (08:11→21:36)
[2020-01-15] MEDS: BISACODYL 10 MG SUPP.RECT RC SCH (08:45)
[2020-01-15] MEDS: ACIDOPHILUS/BULGARICUS CHEW TAB GT SCH ×2 (08:45→20:36)
[2020-01-15] MEDS: DOCUSATE SODIUM 100 MG/10 ML LIQUID UDC GT SCH ×2 (08:45→20:34)
[2020-01-15] MEDS: POTASSIUM CHLORIDE 20 MEQ POWDER PACKET GT SCH (08:45)
[2020-01-15] MEDS: COD LIVER OIL/ZINC OXIDE OINT 113 GM TUBE TOP SCH ×2 (08:46→20:39)
[2020-01-15] MEDS: GLUCERNA 1.2 1000ML LIQUID GT PRN (12:32)
[2020-01-15 20:00] VITALS: BP 137/86
[2020-01-15] MEDS: FERROUS SULFATE 330 MG/7.5 ML UDC- FOR SA ONLY GT SCH (20:36)
[2020-01-15] MEDS: ATORVASTATIN 20 MG TABLET PO SCH (20:37)
[2020-01-16] MEDS: POLYVINYL ALCOHOL OPHT DROPS 15 ML BOTTLE EACHEYE SCH ×6 (00:26→20:00)
[2020-01-16] MEDS: REFRESH EYE RIGHTEYE SCH ×6 (00:54→21:33)
[2020-01-16] MEDS: LEVOTHYROXINE SODIUM 50 MCG TABLET GT SCH (06:17)
[2020-01-16] MEDS: PANTOPRAZOLE ORAL SUSPENSION 40 MG SUSPDR.PKT GT SCH (06:17)
[2020-01-16] MEDS: INSULIN GLARGINE,HUM 300 UNITS/3 ML CARTRIDGE SQ SCH ×2 (06:18→17:36)
[2020-01-16] MEDS: BLOOD SUGAR DIAGNOSTIC 1 EACH STRIP VI SCH ×3 (06:19→21:38)
[2020-01-16] MEDS: INSULIN REGULAR, HUMAN 300 UNIT/3 ML VIAL SQ PRN ×3 (06:20→21:39)
[2020-01-16] MEDS: HYDROGEN PEROXIDE 3% 118 ML BOTTLE TP SCH ×2 (07:07→21:13)
[2020-01-16] MEDS: ACIDOPHILUS/BULGARICUS CHEW TAB GT SCH ×2 (09:15→21:32)
[2020-01-16] MEDS: POTASSIUM CHLORIDE 20 MEQ POWDER PACKET GT SCH (09:15)
[2020-01-16] MEDS: DOCUSATE SODIUM 100 MG/10 ML LIQUID UDC GT SCH ×2 (09:15→21:31)
[2020-01-16] MEDS: COD LIVER OIL/ZINC OXIDE OINT 113 GM TUBE TOP SCH ×2 (09:16→21:33)
[2020-01-16] MEDS: GLUCERNA 1.2 1000ML LIQUID GT PRN (10:04)
[2020-01-16 20:00] VITALS: BP 133/77
[2020-01-16] MEDS: ATORVASTATIN 20 MG TABLET PO SCH (21:32)
[2020-01-16] MEDS: FERROUS SULFATE 330 MG/7.5 ML UDC- FOR SA ONLY GT SCH (21:32)
[2020-01-17] MEDS: POLYVINYL ALCOHOL OPHT DROPS 15 ML BOTTLE EACHEYE SCH ×6 (00:14→20:53)
[2020-01-17] MEDS: REFRESH EYE RIGHTEYE SCH ×6 (01:47→20:59)
[2020-01-17] MEDS: GLUCERNA 1.2 1000ML LIQUID GT PRN (04:12)
[2020-01-17] MEDS: INSULIN REGULAR, HUMAN 300 UNIT/3 ML VIAL SQ PRN ×3 (06:00→22:41)
[2020-01-17] MEDS: INSULIN GLARGINE,HUM 300 UNITS/3 ML CARTRIDGE SQ SCH ×2 (06:01→18:26)
[2020-01-17] MEDS: LEVOTHYROXINE SODIUM 50 MCG TABLET GT SCH (06:03)
[2020-01-17] MEDS: PANTOPRAZOLE ORAL SUSPENSION 40 MG SUSPDR.PKT GT SCH (06:03)
[2020-01-17] MEDS: BLOOD SUGAR DIAGNOSTIC 1 EACH STRIP VI SCH ×3 (06:04→22:39)
[2020-01-17 07:23] VITALS: BP 118/69
[2020-01-17] MEDS: ACIDOPHILUS/BULGARICUS CHEW TAB GT SCH ×2 (08:39→20:54)
[2020-01-17] MEDS: POTASSIUM CHLORIDE 20 MEQ POWDER PACKET GT SCH (08:40)
[2020-01-17] MEDS: DOCUSATE SODIUM 100 MG/10 ML LIQUID UDC GT SCH ×2 (08:41→20:53)
[2020-01-17] MEDS: COD LIVER OIL/ZINC OXIDE OINT 113 GM TUBE TOP SCH ×2 (08:42→20:59)
[2020-01-17] MEDS: HYDROGEN PEROXIDE 3% 118 ML BOTTLE TP SCH ×2 (09:00→21:30)
[2020-01-17] MEDS: BISACODYL 10 MG SUPP.RECT RC SCH (09:09)
--- NOTE | 2020-01-17 15:51 | NUR ---
DSD called patient's daughter Mana and informed her of possible COVID-19 exposure on the subacute unit. DSD also informed Mana of the testing plan for the next 14 days, as mandated by [facility] regulations. DSD stated that Mana would be notified by nursing after each test result. Mana expressed understanding and thanked this DSD for the information provided.
[2020-01-17 20:00] VITALS: BP 94/61
[2020-01-17] MEDS: FERROUS SULFATE 330 MG/7.5 ML UDC- FOR SA ONLY GT SCH (20:54)
[2020-01-17] MEDS: ATORVASTATIN 20 MG TABLET PO SCH (20:58)
[2020-01-18] MEDS: POLYVINYL ALCOHOL OPHT DROPS 15 ML BOTTLE EACHEYE SCH ×7 (00:42→23:07)
[2020-01-18] MEDS: REFRESH EYE RIGHTEYE SCH ×6 (01:00→21:44)
--- NOTE | 2020-01-18 01:04 | NUR ---
Patient is afebrile, no respiratory symptoms or distress noted, will continue monitor.
[2020-01-18] MEDS: GLUCERNA 1.2 1000ML LIQUID GT PRN ×2 (03:08→21:32)
[2020-01-18] MEDS: PANTOPRAZOLE ORAL SUSPENSION 40 MG SUSPDR.PKT GT SCH (05:46)
[2020-01-18] MEDS: LEVOTHYROXINE SODIUM 50 MCG TABLET GT SCH (05:46)
[2020-01-18] MEDS: INSULIN GLARGINE,HUM 300 UNITS/3 ML CARTRIDGE SQ SCH ×2 (05:47→17:24)
[2020-01-18] MEDS: INSULIN REGULAR, HUMAN 300 UNIT/3 ML VIAL SQ PRN ×3 (05:48→21:44)
[2020-01-18] MEDS: BLOOD SUGAR DIAGNOSTIC 1 EACH STRIP VI SCH ×3 (05:49→21:44)
[2020-01-18 07:38] VITALS: BP 121/74
[2020-01-18] MEDS: DOCUSATE SODIUM 100 MG/10 ML LIQUID UDC GT SCH ×2 (08:08→20:54)
[2020-01-18] MEDS: ACIDOPHILUS/BULGARICUS CHEW TAB GT SCH ×2 (08:09→20:54)
[2020-01-18] MEDS: POTASSIUM CHLORIDE 20 MEQ POWDER PACKET GT SCH (08:09)
[2020-01-18] MEDS: COD LIVER OIL/ZINC OXIDE OINT 113 GM TUBE TOP SCH ×2 (08:10→20:54)
[2020-01-18] MEDS: HYDROGEN PEROXIDE 3% 118 ML BOTTLE TP SCH ×2 (08:50→21:00)
[2020-01-18] MEDS: ATORVASTATIN 20 MG TABLET PO SCH (20:54)
[2020-01-18] MEDS: FERROUS SULFATE 330 MG/7.5 ML UDC- FOR SA ONLY GT SCH (20:54)
[2020-01-18 22:41] VITALS: BP 112/73
[2020-01-19] MEDS: REFRESH EYE RIGHTEYE SCH ×6 (00:16→21:05)
[2020-01-19] MEDS: POLYVINYL ALCOHOL OPHT DROPS 15 ML BOTTLE EACHEYE SCH ×6 (03:09→23:22)
[2020-01-19] MEDS: PANTOPRAZOLE ORAL SUSPENSION 40 MG SUSPDR.PKT GT SCH (05:25)
[2020-01-19] MEDS: LEVOTHYROXINE SODIUM 50 MCG TABLET GT SCH (05:25)
[2020-01-19] MEDS: BLOOD SUGAR DIAGNOSTIC 1 EACH STRIP VI SCH ×3 (05:25→21:15)
[2020-01-19] MEDS: INSULIN REGULAR, HUMAN 300 UNIT/3 ML VIAL SQ PRN ×3 (05:26→21:16)
[2020-01-19] MEDS: INSULIN GLARGINE,HUM 300 UNITS/3 ML CARTRIDGE SQ SCH ×2 (05:26→17:11)
[2020-01-19] MEDS: HYDROGEN PEROXIDE 3% 118 ML BOTTLE TP SCH ×2 (07:08→21:00)
[2020-01-19 07:52] VITALS: BP 123/68
[2020-01-19] MEDS: ACIDOPHILUS/BULGARICUS CHEW TAB GT SCH ×2 (08:18→20:51)
[2020-01-19] MEDS: POTASSIUM CHLORIDE 20 MEQ POWDER PACKET GT SCH (08:18)
[2020-01-19] MEDS: DOCUSATE SODIUM 100 MG/10 ML LIQUID UDC GT SCH ×2 (08:18→20:51)
[2020-01-19] MEDS: COD LIVER OIL/ZINC OXIDE OINT 113 GM TUBE TOP SCH ×2 (08:19→20:51)
[2020-01-19] MEDS: BISACODYL 10 MG SUPP.RECT RC SCH (08:19)
[2020-01-19] MEDS: ATORVASTATIN 20 MG TABLET PO SCH (20:51)
[2020-01-19] MEDS: FERROUS SULFATE 330 MG/7.5 ML UDC- FOR SA ONLY GT SCH (20:51)
[2020-01-19 22:55] VITALS: BP 138/75
[2020-01-19] MEDS: GLUCERNA 1.2 1000ML LIQUID GT PRN (23:23)
[2020-01-20] MEDS: REFRESH EYE RIGHTEYE SCH ×6 (00:32→21:16)
[2020-01-20] MEDS: POLYVINYL ALCOHOL OPHT DROPS 15 ML BOTTLE EACHEYE SCH ×6 (04:02→23:23)
[2020-01-20] MEDS: LEVOTHYROXINE SODIUM 50 MCG TABLET GT SCH (05:44)
[2020-01-20] MEDS: BLOOD SUGAR DIAGNOSTIC 1 EACH STRIP VI SCH ×3 (05:44→21:16)
[2020-01-20] MEDS: PANTOPRAZOLE ORAL SUSPENSION 40 MG SUSPDR.PKT GT SCH (05:44)
[2020-01-20] MEDS: INSULIN GLARGINE,HUM 300 UNITS/3 ML CARTRIDGE SQ SCH ×2 (05:45→17:02)
[2020-01-20] MEDS: INSULIN REGULAR, HUMAN 300 UNIT/3 ML VIAL SQ PRN ×3 (05:45→21:15)
[2020-01-20 07:41] VITALS: BP 162/91
[2020-01-20] MEDS: POTASSIUM CHLORIDE 20 MEQ POWDER PACKET GT SCH (08:11)
[2020-01-20] MEDS: COD LIVER OIL/ZINC OXIDE OINT 113 GM TUBE TOP SCH ×2 (08:11→20:48)
[2020-01-20] MEDS: ACIDOPHILUS/BULGARICUS CHEW TAB GT SCH ×2 (08:11→20:48)
[2020-01-20] MEDS: DOCUSATE SODIUM 100 MG/10 ML LIQUID UDC GT SCH ×2 (08:11→20:48)
[2020-01-20] MEDS: HYDROGEN PEROXIDE 3% 118 ML BOTTLE TP SCH ×2 (09:13→21:23)
--- NOTE | 2020-01-20 11:43 | NUR ---
New orders for Covid 19 today.carried out.
[2020-01-20] MEDS: GLUCERNA 1.2 1000ML LIQUID GT PRN (18:43)
[2020-01-20] MEDS: ATORVASTATIN 20 MG TABLET PO SCH (20:48)
[2020-01-20] MEDS: FERROUS SULFATE 330 MG/7.5 ML UDC- FOR SA ONLY GT SCH (20:48)
[2020-01-20 22:44] VITALS: BP 117/78
[2020-01-21] MEDS: REFRESH EYE RIGHTEYE SCH ×6 (01:11→21:18)
[2020-01-21] MEDS: POLYVINYL ALCOHOL OPHT DROPS 15 ML BOTTLE EACHEYE SCH ×5 (04:05→20:00)
[2020-01-21] MEDS: LEVOTHYROXINE SODIUM 50 MCG TABLET GT SCH (05:40)
[2020-01-21] MEDS: PANTOPRAZOLE ORAL SUSPENSION 40 MG SUSPDR.PKT GT SCH (05:40)
[2020-01-21] MEDS: INSULIN REGULAR, HUMAN 300 UNIT/3 ML VIAL SQ PRN ×3 (05:41→21:22)
[2020-01-21] MEDS: INSULIN GLARGINE,HUM 300 UNITS/3 ML CARTRIDGE SQ SCH ×2 (05:41→17:01)
[2020-01-21] MEDS: BLOOD SUGAR DIAGNOSTIC 1 EACH STRIP VI SCH ×3 (05:41→21:21)
[2020-01-21 07:32] VITALS: BP 144/82
[2020-01-21] MEDS: HYDROGEN PEROXIDE 3% 118 ML BOTTLE TP PRN (07:52)
[2020-01-21] MEDS: DOCUSATE SODIUM 100 MG/10 ML LIQUID UDC GT SCH ×2 (08:19→21:16)
[2020-01-21] MEDS: BISACODYL 10 MG SUPP.RECT RC SCH (08:20)
[2020-01-21] MEDS: ACIDOPHILUS/BULGARICUS CHEW TAB GT SCH ×2 (08:20→21:16)
[2020-01-21] MEDS: POTASSIUM CHLORIDE 20 MEQ POWDER PACKET GT SCH (08:20)
[2020-01-21] MEDS: COD LIVER OIL/ZINC OXIDE OINT 113 GM TUBE TOP SCH ×2 (08:21→21:18)
[2020-01-21] MEDS: HYDROGEN PEROXIDE 3% 118 ML BOTTLE TP SCH ×2 (09:00→21:35)
[2020-01-21 20:31] VITALS: BP 114/65
[2020-01-21] MEDS: FERROUS SULFATE 330 MG/7.5 ML UDC- FOR SA ONLY GT SCH (21:16)
[2020-01-21] MEDS: ATORVASTATIN 20 MG TABLET PO SCH (21:18)
[2020-01-21 23:27] VITALS: BP 114/65
[2020-01-22] MEDS: POLYVINYL ALCOHOL OPHT DROPS 15 ML BOTTLE EACHEYE SCH ×6 (00:56→20:00)
[2020-01-22] MEDS: REFRESH EYE RIGHTEYE SCH ×6 (01:09→21:31)
--- NOTE | 2020-01-22 01:23 | NUR ---
Reynold from the Lab called about the COVID-19 test that was done on Tuesday had resulted and the patient's result is negative.
[2020-01-22] MEDS: PANTOPRAZOLE ORAL SUSPENSION 40 MG SUSPDR.PKT GT SCH (06:30)
[2020-01-22] MEDS: LEVOTHYROXINE SODIUM 50 MCG TABLET GT SCH (06:30)
[2020-01-22] MEDS: INSULIN GLARGINE,HUM 300 UNITS/3 ML CARTRIDGE SQ SCH ×2 (06:31→17:26)
[2020-01-22] MEDS: BLOOD SUGAR DIAGNOSTIC 1 EACH STRIP VI SCH ×3 (06:31→21:31)
[2020-01-22] MEDS: INSULIN REGULAR, HUMAN 300 UNIT/3 ML VIAL SQ PRN ×3 (06:32→21:40)
[2020-01-22 07:24] VITALS: BP 148/81
[2020-01-22] MEDS: HYDROGEN PEROXIDE 3% 118 ML BOTTLE TP SCH ×2 (07:26→20:58)
[2020-01-22] MEDS: DOCUSATE SODIUM 100 MG/10 ML LIQUID UDC GT SCH ×2 (08:29→21:21)
[2020-01-22] MEDS: ACIDOPHILUS/BULGARICUS CHEW TAB GT SCH ×2 (08:29→21:22)
[2020-01-22] MEDS: POTASSIUM CHLORIDE 20 MEQ POWDER PACKET GT SCH (08:30)
[2020-01-22] MEDS: COD LIVER OIL/ZINC OXIDE OINT 113 GM TUBE TOP SCH ×2 (08:33→21:31)
[2020-01-22] MEDS: GLUCERNA 1.2 1000ML LIQUID GT PRN (15:14)
--- NOTE | 2020-01-22 18:22 | NUR ---
Mana pt's daughter notified COVID-19 test result was negative.
[2020-01-22 20:16] VITALS: BP 135/54
[2020-01-22] MEDS: FERROUS SULFATE 330 MG/7.5 ML UDC- FOR SA ONLY GT SCH (21:21)
[2020-01-22] MEDS: ATORVASTATIN 20 MG TABLET PO SCH (21:29)
[2020-01-23] MEDS: REFRESH EYE RIGHTEYE SCH ×6 (01:00→21:36)
[2020-01-23] MEDS: POLYVINYL ALCOHOL OPHT DROPS 15 ML BOTTLE EACHEYE SCH ×6 (04:00→20:00)
[2020-01-23] MEDS: PANTOPRAZOLE ORAL SUSPENSION 40 MG SUSPDR.PKT GT SCH (05:59)
[2020-01-23] MEDS: LEVOTHYROXINE SODIUM 50 MCG TABLET GT SCH (05:59)
[2020-01-23] MEDS: BLOOD SUGAR DIAGNOSTIC 1 EACH STRIP VI SCH ×3 (06:00→21:37)
[2020-01-23] MEDS: INSULIN GLARGINE,HUM 300 UNITS/3 ML CARTRIDGE SQ SCH ×2 (06:00→17:17)
[2020-01-23] MEDS: INSULIN REGULAR, HUMAN 300 UNIT/3 ML VIAL SQ PRN ×3 (06:01→21:38)
[2020-01-23 07:28] VITALS: BP 150/82
[2020-01-23] MEDS: HYDROGEN PEROXIDE 3% 118 ML BOTTLE TP SCH ×2 (08:17→21:31)
[2020-01-23] MEDS: ACIDOPHILUS/BULGARICUS CHEW TAB GT SCH ×2 (08:26→21:36)
[2020-01-23] MEDS: DOCUSATE SODIUM 100 MG/10 ML LIQUID UDC GT SCH ×2 (08:26→21:35)
[2020-01-23] MEDS: POTASSIUM CHLORIDE 20 MEQ POWDER PACKET GT SCH (08:27)
[2020-01-23] MEDS: BISACODYL 10 MG SUPP.RECT RC SCH (09:00)
[2020-01-23] MEDS: COD LIVER OIL/ZINC OXIDE OINT 113 GM TUBE TOP SCH ×2 (09:00→21:36)
--- NOTE | 2020-01-23 18:47 | NUR ---
Seen and examined by Dr Nolan,no new orders.
[2020-01-23 20:26] VITALS: BP 109/65
[2020-01-23] MEDS: ATORVASTATIN 20 MG TABLET PO SCH (21:36)
[2020-01-23] MEDS: FERROUS SULFATE 330 MG/7.5 ML UDC- FOR SA ONLY GT SCH (21:36)
[2020-01-24] MEDS: REFRESH EYE RIGHTEYE SCH ×6 (01:00→21:09)
[2020-01-24] MEDS: POLYVINYL ALCOHOL OPHT DROPS 15 ML BOTTLE EACHEYE SCH ×6 (04:29→20:00)
[2020-01-24] MEDS: PANTOPRAZOLE ORAL SUSPENSION 40 MG SUSPDR.PKT GT SCH (05:22)
[2020-01-24] MEDS: LEVOTHYROXINE SODIUM 50 MCG TABLET GT SCH (05:22)
[2020-01-24] MEDS: INSULIN GLARGINE,HUM 300 UNITS/3 ML CARTRIDGE SQ SCH ×2 (05:23→17:27)
[2020-01-24] MEDS: BLOOD SUGAR DIAGNOSTIC 1 EACH STRIP VI SCH ×3 (05:24→21:15)
[2020-01-24] MEDS: INSULIN REGULAR, HUMAN 300 UNIT/3 ML VIAL SQ PRN ×3 (05:24→21:18)
[2020-01-24 08:04] VITALS: BP 160/86
[2020-01-24 08:15] VITALS: BP 156/86
[2020-01-24] MEDS: ACIDOPHILUS/BULGARICUS CHEW TAB GT SCH ×2 (08:22→21:09)
[2020-01-24] MEDS: POTASSIUM CHLORIDE 20 MEQ POWDER PACKET GT SCH (08:22)
[2020-01-24] MEDS: DOCUSATE SODIUM 100 MG/10 ML LIQUID UDC GT SCH ×2 (08:22→21:08)
[2020-01-24] MEDS: COD LIVER OIL/ZINC OXIDE OINT 113 GM TUBE TOP SCH ×2 (08:22→21:10)
[2020-01-24] MEDS: HYDROGEN PEROXIDE 3% 118 ML BOTTLE TP SCH ×2 (09:51→21:32)
[2020-01-24] MEDS: GLUCERNA 1.2 1000ML LIQUID GT PRN ×2 (13:27→13:53)
--- NOTE | 2020-01-24 15:00 | NUR ---
SEEN BY VELMA ROMEO N.P. AND WITH SARYO.
[2020-01-24 20:00] VITALS: BP 128/78
[2020-01-24] MEDS: ATORVASTATIN 20 MG TABLET PO SCH (21:09)
[2020-01-24] MEDS: FERROUS SULFATE 330 MG/7.5 ML UDC- FOR SA ONLY GT SCH (21:09)
[2020-01-25] MEDS: POLYVINYL ALCOHOL OPHT DROPS 15 ML BOTTLE EACHEYE SCH ×6 (00:10→20:00)
[2020-01-25] MEDS: REFRESH EYE RIGHTEYE SCH ×6 (01:26→21:25)
[2020-01-25] MEDS: PANTOPRAZOLE ORAL SUSPENSION 40 MG SUSPDR.PKT GT SCH (06:04)
[2020-01-25] MEDS: LEVOTHYROXINE SODIUM 50 MCG TABLET GT SCH (06:04)
[2020-01-25] MEDS: BLOOD SUGAR DIAGNOSTIC 1 EACH STRIP VI SCH ×3 (06:05→21:25)
[2020-01-25] MEDS: INSULIN GLARGINE,HUM 300 UNITS/3 ML CARTRIDGE SQ SCH ×2 (06:05→17:46)
[2020-01-25] MEDS: INSULIN REGULAR, HUMAN 300 UNIT/3 ML VIAL SQ PRN ×3 (06:06→21:26)
[2020-01-25] MEDS: DOCUSATE SODIUM 100 MG/10 ML LIQUID UDC GT SCH ×2 (08:04→21:24)
[2020-01-25] MEDS: ACIDOPHILUS/BULGARICUS CHEW TAB GT SCH ×2 (08:04→21:24)
[2020-01-25 08:05] VITALS: BP 154/90
[2020-01-25] MEDS: POTASSIUM CHLORIDE 20 MEQ POWDER PACKET GT SCH (08:05)
[2020-01-25] MEDS: BISACODYL 10 MG SUPP.RECT RC SCH (08:06)
[2020-01-25] MEDS: COD LIVER OIL/ZINC OXIDE OINT 113 GM TUBE TOP SCH ×2 (08:06→21:25)
[2020-01-25] MEDS: HYDROGEN PEROXIDE 3% 118 ML BOTTLE TP SCH ×2 (09:11→20:26)
[2020-01-25] MEDS: GLUCERNA 1.2 1000ML LIQUID GT PRN (10:45)
[2020-01-25 20:08] VITALS: BP 124/55
[2020-01-25] MEDS: ATORVASTATIN 20 MG TABLET PO SCH (21:24)
[2020-01-25] MEDS: FERROUS SULFATE 330 MG/7.5 ML UDC- FOR SA ONLY GT SCH (21:24)
[2020-01-26] MEDS: REFRESH EYE RIGHTEYE SCH ×6 (01:30→21:16)
[2020-01-26] MEDS: POLYVINYL ALCOHOL OPHT DROPS 15 ML BOTTLE EACHEYE SCH ×6 (04:00→20:00)
[2020-01-26] MEDS: LEVOTHYROXINE SODIUM 50 MCG TABLET GT SCH (05:00)
[2020-01-26] MEDS: PANTOPRAZOLE ORAL SUSPENSION 40 MG SUSPDR.PKT GT SCH (05:00)
[2020-01-26] MEDS: INSULIN GLARGINE,HUM 300 UNITS/3 ML CARTRIDGE SQ SCH ×2 (05:01→17:16)
[2020-01-26] MEDS: BLOOD SUGAR DIAGNOSTIC 1 EACH STRIP VI SCH ×3 (05:52→21:20)
[2020-01-26] MEDS: GLUCERNA 1.2 1000ML LIQUID GT PRN ×2 (05:53→21:20)
[2020-01-26] MEDS: INSULIN REGULAR, HUMAN 300 UNIT/3 ML VIAL SQ PRN ×3 (05:54→21:21)
[2020-01-26] MEDS: HYDROGEN PEROXIDE 3% 118 ML BOTTLE TP SCH ×2 (07:26→21:44)
[2020-01-26 07:58] VITALS: BP 140/87
[2020-01-26] MEDS: POTASSIUM CHLORIDE 20 MEQ POWDER PACKET GT SCH (08:42)
[2020-01-26] MEDS: COD LIVER OIL/ZINC OXIDE OINT 113 GM TUBE TOP SCH ×2 (08:42→21:16)
[2020-01-26] MEDS: ACIDOPHILUS/BULGARICUS CHEW TAB GT SCH ×2 (08:42→21:16)
[2020-01-26] MEDS: DOCUSATE SODIUM 100 MG/10 ML LIQUID UDC GT SCH ×2 (08:42→21:15)
[2020-01-26 20:12] VITALS: BP 134/72
[2020-01-26] MEDS: ATORVASTATIN 20 MG TABLET PO SCH (21:16)
[2020-01-26] MEDS: FERROUS SULFATE 330 MG/7.5 ML UDC- FOR SA ONLY GT SCH (21:16)
[2020-01-27] MEDS: REFRESH EYE RIGHTEYE SCH ×6 (01:28→20:50)
[2020-01-27] MEDS: POLYVINYL ALCOHOL OPHT DROPS 15 ML BOTTLE EACHEYE SCH ×7 (04:00→23:23)
[2020-01-27] MEDS: LEVOTHYROXINE SODIUM 50 MCG TABLET GT SCH (05:02)
[2020-01-27] MEDS: BLOOD SUGAR DIAGNOSTIC 1 EACH STRIP VI SCH ×3 (05:02→22:16)
[2020-01-27] MEDS: PANTOPRAZOLE ORAL SUSPENSION 40 MG SUSPDR.PKT GT SCH (05:02)
[2020-01-27] MEDS: INSULIN REGULAR, HUMAN 300 UNIT/3 ML VIAL SQ PRN ×3 (05:05→22:18)
[2020-01-27] MEDS: INSULIN GLARGINE,HUM 300 UNITS/3 ML CARTRIDGE SQ SCH ×2 (05:06→17:03)
[2020-01-27] MEDS: HYDROGEN PEROXIDE 3% 118 ML BOTTLE TP SCH ×2 (07:26→21:10)
[2020-01-27 08:03] VITALS: BP 112/76
[2020-01-27] MEDS: DOCUSATE SODIUM 100 MG/10 ML LIQUID UDC GT SCH ×2 (08:16→20:50)
[2020-01-27] MEDS: POTASSIUM CHLORIDE 20 MEQ POWDER PACKET GT SCH (08:17)
[2020-01-27] MEDS: ACIDOPHILUS/BULGARICUS CHEW TAB GT SCH ×2 (08:17→20:50)
[2020-01-27] MEDS: COD LIVER OIL/ZINC OXIDE OINT 113 GM TUBE TOP SCH ×2 (08:18→20:51)
[2020-01-27] MEDS: BISACODYL 10 MG SUPP.RECT RC SCH (08:18)
[2020-01-27] MEDS: GLUCERNA 1.2 1000ML LIQUID GT PRN (18:51)
[2020-01-27] MEDS: ATORVASTATIN 20 MG TABLET PO SCH (20:50)
[2020-01-27] MEDS: FERROUS SULFATE 330 MG/7.5 ML UDC- FOR SA ONLY GT SCH (20:50)
[2020-01-27 20:56] VITALS: BP 136/80
[2020-01-28] MEDS: REFRESH EYE RIGHTEYE SCH ×6 (01:00→21:24)
[2020-01-28] MEDS: POLYVINYL ALCOHOL OPHT DROPS 15 ML BOTTLE EACHEYE SCH ×6 (04:00→23:30)
[2020-01-28] MEDS: PANTOPRAZOLE ORAL SUSPENSION 40 MG SUSPDR.PKT GT SCH (05:24)
[2020-01-28] MEDS: BLOOD SUGAR DIAGNOSTIC 1 EACH STRIP VI SCH ×3 (05:24→21:23)
[2020-01-28] MEDS: LEVOTHYROXINE SODIUM 50 MCG TABLET GT SCH (05:24)
[2020-01-28] MEDS: INSULIN REGULAR, HUMAN 300 UNIT/3 ML VIAL SQ PRN ×2 (05:29→13:27)
[2020-01-28] MEDS: INSULIN GLARGINE,HUM 300 UNITS/3 ML CARTRIDGE SQ SCH ×2 (05:29→17:30)
[2020-01-28 07:31] VITALS: BP 138/80
[2020-01-28] MEDS: DOCUSATE SODIUM 100 MG/10 ML LIQUID UDC GT SCH ×2 (08:37→21:24)
[2020-01-28] MEDS: ACIDOPHILUS/BULGARICUS CHEW TAB GT SCH ×2 (08:37→21:24)
[2020-01-28] MEDS: COD LIVER OIL/ZINC OXIDE OINT 113 GM TUBE TOP SCH ×2 (08:38→21:24)
[2020-01-28] MEDS: POTASSIUM CHLORIDE 20 MEQ POWDER PACKET GT SCH (08:38)
[2020-01-28] MEDS: HYDROGEN PEROXIDE 3% 118 ML BOTTLE TP SCH ×2 (08:50→21:29)
--- NOTE | 2020-01-28 14:00 | NUR ---
SEEN BY ANAID Maguire AND WITH NEW ORDERS CARRIED OUT.
[2020-01-28] MEDS: GLUCERNA 1.2 1000ML LIQUID GT PRN (17:31)
[2020-01-28 20:35] VITALS: BP 112/60
[2020-01-28] MEDS: FERROUS SULFATE 330 MG/7.5 ML UDC- FOR SA ONLY GT SCH (21:24)
[2020-01-28] MEDS: ATORVASTATIN 20 MG TABLET PO SCH (21:24)
[2020-01-29] MEDS: REFRESH EYE RIGHTEYE SCH ×6 (01:42→21:54)
[2020-01-29] MEDS: POLYVINYL ALCOHOL OPHT DROPS 15 ML BOTTLE EACHEYE SCH ×5 (04:39→20:00)
[2020-01-29] MEDS: LEVOTHYROXINE SODIUM 50 MCG TABLET GT SCH (05:16)
[2020-01-29] MEDS: PANTOPRAZOLE ORAL SUSPENSION 40 MG SUSPDR.PKT GT SCH (05:16)
[2020-01-29] MEDS: BLOOD SUGAR DIAGNOSTIC 1 EACH STRIP VI SCH ×3 (05:16→21:49)
[2020-01-29] MEDS: INSULIN REGULAR, HUMAN 300 UNIT/3 ML VIAL SQ PRN ×2 (05:21→21:51)
[2020-01-29] MEDS: INSULIN GLARGINE,HUM 300 UNITS/3 ML CARTRIDGE SQ SCH ×2 (05:21→18:04)
[2020-01-29] MEDS: HYDROGEN PEROXIDE 3% 118 ML BOTTLE TP SCH ×2 (07:29→21:12)
[2020-01-29 07:53] VITALS: BP 130/79
[2020-01-29] MEDS: ACIDOPHILUS/BULGARICUS CHEW TAB GT SCH ×2 (09:02→21:54)
[2020-01-29] MEDS: DOCUSATE SODIUM 100 MG/10 ML LIQUID UDC GT SCH ×2 (09:02→21:52)
[2020-01-29] MEDS: POTASSIUM CHLORIDE 20 MEQ POWDER PACKET GT SCH (09:03)
[2020-01-29] MEDS: COD LIVER OIL/ZINC OXIDE OINT 113 GM TUBE TOP SCH ×2 (09:07→21:54)
[2020-01-29] MEDS: BISACODYL 10 MG SUPP.RECT RC SCH (09:07)
[2020-01-29] MEDS: GLUCERNA 1.2 1000ML LIQUID GT PRN (16:45)
[2020-01-29 20:41] VITALS: BP 117/76
[2020-01-29] MEDS: FERROUS SULFATE 330 MG/7.5 ML UDC- FOR SA ONLY GT SCH (21:52)
[2020-01-29] MEDS: ATORVASTATIN 20 MG TABLET PO SCH (21:54)
[2020-01-30] MEDS: REFRESH EYE RIGHTEYE SCH ×6 (00:18→21:19)
[2020-01-30] MEDS: POLYVINYL ALCOHOL OPHT DROPS 15 ML BOTTLE EACHEYE SCH ×7 (00:18→23:30)
[2020-01-30] MEDS: LEVOTHYROXINE SODIUM 50 MCG TABLET GT SCH (05:00)
[2020-01-30] MEDS: PANTOPRAZOLE ORAL SUSPENSION 40 MG SUSPDR.PKT GT SCH (05:00)
[2020-01-30] MEDS: BLOOD SUGAR DIAGNOSTIC 1 EACH STRIP VI SCH ×3 (05:00→22:00)
[2020-01-30] MEDS: INSULIN REGULAR, HUMAN 300 UNIT/3 ML VIAL SQ PRN ×3 (05:18→23:31)
[2020-01-30] MEDS: INSULIN GLARGINE,HUM 300 UNITS/3 ML CARTRIDGE SQ SCH ×2 (05:20→17:04)
[2020-01-30 07:27] VITALS: BP 124/74
[2020-01-30] MEDS: HYDROGEN PEROXIDE 3% 118 ML BOTTLE TP SCH ×2 (08:06→21:45)
[2020-01-30] MEDS: COD LIVER OIL/ZINC OXIDE OINT 113 GM TUBE TOP SCH ×2 (08:35→21:19)
[2020-01-30] MEDS: ACIDOPHILUS/BULGARICUS CHEW TAB GT SCH ×2 (08:35→21:18)
[2020-01-30] MEDS: POTASSIUM CHLORIDE 20 MEQ POWDER PACKET GT SCH (08:35)
[2020-01-30] MEDS: DOCUSATE SODIUM 100 MG/10 ML LIQUID UDC GT SCH ×2 (08:35→21:17)
--- NOTE | 2020-01-30 16:30 | NUR ---
Covid 19 test done today.per [facility] requirement.
[2020-01-30 20:54] VITALS: BP 122/85
[2020-01-30] MEDS: FERROUS SULFATE 330 MG/7.5 ML UDC- FOR SA ONLY GT SCH (21:17)
[2020-01-30] MEDS: ATORVASTATIN 20 MG TABLET PO SCH (21:19)
[2020-01-31] MEDS: REFRESH EYE RIGHTEYE SCH ×6 (01:27→21:34)
[2020-01-31] MEDS: POLYVINYL ALCOHOL OPHT DROPS 15 ML BOTTLE EACHEYE SCH ×5 (04:22→20:00)
[2020-01-31] MEDS: LEVOTHYROXINE SODIUM 50 MCG TABLET GT SCH (06:48)
[2020-01-31] MEDS: PANTOPRAZOLE ORAL SUSPENSION 40 MG SUSPDR.PKT GT SCH (06:48)
[2020-01-31] MEDS: BLOOD SUGAR DIAGNOSTIC 1 EACH STRIP VI SCH ×3 (06:49→22:09)
[2020-01-31] MEDS: GLUCERNA 1.2 1000ML LIQUID GT PRN (06:49)
[2020-01-31] MEDS: INSULIN GLARGINE,HUM 300 UNITS/3 ML CARTRIDGE SQ SCH ×2 (06:58→17:32)
[2020-01-31] MEDS: INSULIN REGULAR, HUMAN 300 UNIT/3 ML VIAL SQ PRN ×3 (06:59→22:12)
[2020-01-31 07:44] VITALS: BP 134/83
[2020-01-31] MEDS: COD LIVER OIL/ZINC OXIDE OINT 113 GM TUBE TOP SCH ×2 (08:55→21:34)
[2020-01-31] MEDS: POTASSIUM CHLORIDE 20 MEQ POWDER PACKET GT SCH (08:55)
[2020-01-31] MEDS: BISACODYL 10 MG SUPP.RECT RC SCH (08:55)
[2020-01-31] MEDS: DOCUSATE SODIUM 100 MG/10 ML LIQUID UDC GT SCH ×2 (08:55→21:34)
[2020-01-31] MEDS: ACIDOPHILUS/BULGARICUS CHEW TAB GT SCH ×2 (08:55→21:34)
[2020-01-31] MEDS: HYDROGEN PEROXIDE 3% 118 ML BOTTLE TP SCH ×2 (09:19→20:53)
[2020-01-31] MEDS: ATORVASTATIN 20 MG TABLET PO SCH (21:34)
[2020-01-31] MEDS: FERROUS SULFATE 330 MG/7.5 ML UDC- FOR SA ONLY GT SCH (21:34)
[2020-01-31 22:14] VITALS: BP 127/76
[2020-02-01] MEDS: REFRESH EYE RIGHTEYE SCH ×6 (00:37→20:04)
[2020-02-01] MEDS: POLYVINYL ALCOHOL OPHT DROPS 15 ML BOTTLE EACHEYE SCH ×6 (00:37→20:04)
[2020-02-01] MEDS: GLUCERNA 1.2 1000ML LIQUID GT PRN ×2 (01:26→22:26)
[2020-02-01] MEDS: LEVOTHYROXINE SODIUM 50 MCG TABLET GT SCH (05:04)
[2020-02-01] MEDS: BLOOD SUGAR DIAGNOSTIC 1 EACH STRIP VI SCH ×3 (05:04→21:37)
[2020-02-01] MEDS: PANTOPRAZOLE ORAL SUSPENSION 40 MG SUSPDR.PKT GT SCH (05:04)
[2020-02-01] MEDS: INSULIN GLARGINE,HUM 300 UNITS/3 ML CARTRIDGE SQ SCH ×2 (05:05→17:15)
[2020-02-01] MEDS: INSULIN REGULAR, HUMAN 300 UNIT/3 ML VIAL SQ PRN ×3 (05:06→21:37)
[2020-02-01 07:30] VITALS: BP 139/86
[2020-02-01] MEDS: DOCUSATE SODIUM 100 MG/10 ML LIQUID UDC GT SCH ×2 (08:30→20:04)
[2020-02-01] MEDS: ACIDOPHILUS/BULGARICUS CHEW TAB GT SCH ×2 (08:36→20:04)
[2020-02-01] MEDS: COD LIVER OIL/ZINC OXIDE OINT 113 GM TUBE TOP SCH ×2 (08:37→20:04)
[2020-02-01] MEDS: POTASSIUM CHLORIDE 20 MEQ POWDER PACKET GT SCH (08:37)
[2020-02-01] MEDS: HYDROGEN PEROXIDE 3% 118 ML BOTTLE TP SCH ×2 (09:00→21:11)
[2020-02-01] MEDS: ATORVASTATIN 20 MG TABLET PO SCH (20:04)
[2020-02-01] MEDS: FERROUS SULFATE 330 MG/7.5 ML UDC- FOR SA ONLY GT SCH (20:04)
[2020-02-01 22:21] VITALS: BP 146/75
[2020-02-02] MEDS: REFRESH EYE RIGHTEYE SCH ×6 (00:54→20:05)
[2020-02-02] MEDS: POLYVINYL ALCOHOL OPHT DROPS 15 ML BOTTLE EACHEYE SCH ×6 (00:54→20:05)
[2020-02-02] MEDS: BLOOD SUGAR DIAGNOSTIC 1 EACH STRIP VI SCH ×3 (05:12→21:34)
[2020-02-02] MEDS: LEVOTHYROXINE SODIUM 50 MCG TABLET GT SCH (05:12)
[2020-02-02] MEDS: PANTOPRAZOLE ORAL SUSPENSION 40 MG SUSPDR.PKT GT SCH (05:12)
[2020-02-02] MEDS: INSULIN GLARGINE,HUM 300 UNITS/3 ML CARTRIDGE SQ SCH ×2 (05:15→17:19)
[2020-02-02] MEDS: INSULIN REGULAR, HUMAN 300 UNIT/3 ML VIAL SQ PRN ×3 (05:17→21:36)
[2020-02-02 07:35] VITALS: BP 140/81
[2020-02-02] MEDS: BISACODYL 10 MG SUPP.RECT RC SCH (08:14)
[2020-02-02] MEDS: ACIDOPHILUS/BULGARICUS CHEW TAB GT SCH ×2 (08:14→20:05)
[2020-02-02] MEDS: COD LIVER OIL/ZINC OXIDE OINT 113 GM TUBE TOP SCH ×2 (08:14→20:06)
[2020-02-02] MEDS: DOCUSATE SODIUM 100 MG/10 ML LIQUID UDC GT SCH ×2 (08:14→20:05)
[2020-02-02] MEDS: POTASSIUM CHLORIDE 20 MEQ POWDER PACKET GT SCH (08:14)
[2020-02-02] MEDS: HYDROGEN PEROXIDE 3% 118 ML BOTTLE TP SCH ×2 (08:50→20:27)
[2020-02-02] MEDS: ATORVASTATIN 20 MG TABLET PO SCH (20:05)
[2020-02-02] MEDS: FERROUS SULFATE 330 MG/7.5 ML UDC- FOR SA ONLY GT SCH (20:05)
[2020-02-02] MEDS: GLUCERNA 1.2 1000ML LIQUID GT PRN (22:27)
[2020-02-02 22:34] VITALS: BP 134/84
[2020-02-03] MEDS: POLYVINYL ALCOHOL OPHT DROPS 15 ML BOTTLE EACHEYE SCH ×6 (00:33→20:00)
[2020-02-03] MEDS: REFRESH EYE RIGHTEYE SCH ×6 (00:33→21:00)
[2020-02-03] MEDS: PANTOPRAZOLE ORAL SUSPENSION 40 MG SUSPDR.PKT GT SCH (05:11)
[2020-02-03] MEDS: BLOOD SUGAR DIAGNOSTIC 1 EACH STRIP VI SCH ×3 (05:11→22:35)
[2020-02-03] MEDS: LEVOTHYROXINE SODIUM 50 MCG TABLET GT SCH (05:11)
[2020-02-03] MEDS: INSULIN REGULAR, HUMAN 300 UNIT/3 ML VIAL SQ PRN ×3 (05:17→22:52)
[2020-02-03] MEDS: INSULIN GLARGINE,HUM 300 UNITS/3 ML CARTRIDGE SQ SCH ×2 (05:18→17:08)
[2020-02-03 07:49] VITALS: BP 107/64
[2020-02-03] MEDS: DOCUSATE SODIUM 100 MG/10 ML LIQUID UDC GT SCH ×2 (08:35→21:00)
[2020-02-03] MEDS: POTASSIUM CHLORIDE 20 MEQ POWDER PACKET GT SCH (08:35)
[2020-02-03] MEDS: COD LIVER OIL/ZINC OXIDE OINT 113 GM TUBE TOP SCH ×2 (08:35→21:00)
[2020-02-03] MEDS: ACIDOPHILUS/BULGARICUS CHEW TAB GT SCH ×2 (08:35→21:00)
[2020-02-03] MEDS: HYDROGEN PEROXIDE 3% 118 ML BOTTLE TP SCH ×2 (09:19→21:14)
[2020-02-03] MEDS: GLUCERNA 1.2 1000ML LIQUID GT PRN (17:04)
[2020-02-03] MEDS: ATORVASTATIN 20 MG TABLET PO SCH (21:00)
[2020-02-03] MEDS: FERROUS SULFATE 330 MG/7.5 ML UDC- FOR SA ONLY GT SCH (21:00)
[2020-02-03 22:53] VITALS: BP 105/61
[2020-02-04] MEDS: POLYVINYL ALCOHOL OPHT DROPS 15 ML BOTTLE EACHEYE SCH ×6 (00:28→20:31)
[2020-02-04] MEDS: REFRESH EYE RIGHTEYE SCH ×6 (01:06→21:00)
[2020-02-04] MEDS: LEVOTHYROXINE SODIUM 50 MCG TABLET GT SCH (05:26)
[2020-02-04] MEDS: PANTOPRAZOLE ORAL SUSPENSION 40 MG SUSPDR.PKT GT SCH (05:26)
[2020-02-04] MEDS: BLOOD SUGAR DIAGNOSTIC 1 EACH STRIP VI SCH ×3 (05:27→22:41)
[2020-02-04] MEDS: INSULIN GLARGINE,HUM 300 UNITS/3 ML CARTRIDGE SQ SCH ×2 (05:27→17:33)
[2020-02-04] MEDS: INSULIN REGULAR, HUMAN 300 UNIT/3 ML VIAL SQ PRN ×3 (05:29→22:42)
[2020-02-04 07:00] LABS: BASOPHILS % (AUTO) 0.3 % (0.0-2.0); EOSINOPHILS # (AUTO) 0.3 K/uL (0.0-0.7); EOSINOPHILS % (AUTO) 4.8 % (0.0-7.0); HEMATOCRIT 35.7 % (36.7-47.1); HEMOGLOBIN 12.3 g/dL (12.5-16.3); LYMPHOCYTES # (AUTO) 1.7 K/uL (20.0-40.0); LYMPHOCYTES % (AUTO) 27.1 % (20.5-51.5); MEAN CORPUSCULAR HEMOGLOBIN 29.5 uug (23.8-33.4); MEAN CORPUSCULAR HGB CONC 34 g/dL (32.5-36.3); MEAN CORPUSCULAR VOLUME 85.7 fL (73.0-96.2); MONOCYTES # (AUTO) 0.5 K/uL (2.0-10.0); MONOCYTES % (AUTO) 7.8 % (0.0-11.0); NEUTROPHILS # (AUTO) 3.7 K/uL (1.8-8.9); PLATELET COUNT (AUTO) 181 K/uL (152-348); RED BLOOD CELL COUNT(AUTO) 4.17 MIL/uL (4.06-5.63); WHITE BLOOD COUNT (AUTO) 6.2 K/uL (3.6-10.2)
[2020-02-04 07:06] LABS: BILIRUBIN,TOTAL 0.5 mg/dL (0.2-1.0); POTASSIUM 4.1 mmol/L (3.5-5.1); TOTAL PROTEIN, SERUM 7.6 g/dL (6.4-8.2)
[2020-02-04 07:36] VITALS: BP 101/63
[2020-02-04] MEDS: ACIDOPHILUS/BULGARICUS CHEW TAB GT SCH ×2 (08:23→21:00)
[2020-02-04] MEDS: DOCUSATE SODIUM 100 MG/10 ML LIQUID UDC GT SCH ×2 (08:23→21:00)
[2020-02-04] MEDS: POTASSIUM CHLORIDE 20 MEQ POWDER PACKET GT SCH (08:24)
[2020-02-04] MEDS: BISACODYL 10 MG SUPP.RECT RC SCH (08:24)
[2020-02-04] MEDS: COD LIVER OIL/ZINC OXIDE OINT 113 GM TUBE TOP SCH ×2 (08:24→21:00)
[2020-02-04] MEDS: HYDROGEN PEROXIDE 3% 118 ML BOTTLE TP SCH ×2 (09:27→21:43)
[2020-02-04] MEDS: GLUCERNA 1.2 1000ML LIQUID GT PRN (15:39)
[2020-02-04 20:23] VITALS: BP 148/88
[2020-02-04] MEDS: ATORVASTATIN 20 MG TABLET PO SCH (21:00)
[2020-02-04] MEDS: FERROUS SULFATE 330 MG/7.5 ML UDC- FOR SA ONLY GT SCH (21:00)
[2020-02-05] MEDS: POLYVINYL ALCOHOL OPHT DROPS 15 ML BOTTLE EACHEYE SCH ×7 (00:25→23:37)
[2020-02-05] MEDS: REFRESH EYE RIGHTEYE SCH ×6 (01:06→20:27)
[2020-02-05] MEDS: PANTOPRAZOLE ORAL SUSPENSION 40 MG SUSPDR.PKT GT SCH (05:39)
[2020-02-05] MEDS: LEVOTHYROXINE SODIUM 50 MCG TABLET GT SCH (05:39)
[2020-02-05] MEDS: INSULIN GLARGINE,HUM 300 UNITS/3 ML CARTRIDGE SQ SCH ×2 (05:40→17:37)
[2020-02-05] MEDS: INSULIN REGULAR, HUMAN 300 UNIT/3 ML VIAL SQ PRN ×3 (05:41→22:33)
[2020-02-05] MEDS: BLOOD SUGAR DIAGNOSTIC 1 EACH STRIP VI SCH ×3 (05:42→22:31)
[2020-02-05 07:35] VITALS: BP 135/84
[2020-02-05] MEDS: HYDROGEN PEROXIDE 3% 118 ML BOTTLE TP SCH ×2 (08:42→21:07)
[2020-02-05] MEDS: ACIDOPHILUS/BULGARICUS CHEW TAB GT SCH ×2 (08:45→20:27)
[2020-02-05] MEDS: DOCUSATE SODIUM 100 MG/10 ML LIQUID UDC GT SCH ×2 (08:45→20:27)
[2020-02-05] MEDS: POTASSIUM CHLORIDE 20 MEQ POWDER PACKET GT SCH (08:46)
[2020-02-05] MEDS: COD LIVER OIL/ZINC OXIDE OINT 113 GM TUBE TOP SCH ×2 (08:47→20:27)
[2020-02-05] MEDS: GLUCERNA 1.2 1000ML LIQUID GT PRN (12:59)
--- NOTE | 2020-02-05 15:28 | NUR ---
INTERDISCIPLINARY PLAN OF CARE CONFERENCE was held today. Patient's daughter Mana was not available to participate in the meeting. Dr. Nolan and the Interdisciplinary team reviewed the current plan of care in detail. RN reported on the patient's medical condition, elevated BS findings, and current treatment orders. No major changes in condition were reported by RN or by other disciplines in patient's condition. See RN IDT conference notes. See also all other disciplines IDT notes and physician's progress notes for additional details.
[2020-02-05] MEDS: OMEGA-3 FATTY ACIDS/FISH OIL CAPSULE PO SCH (17:35)
[2020-02-05 20:18] VITALS: BP 138/83
[2020-02-05] MEDS: FERROUS SULFATE 330 MG/7.5 ML UDC- FOR SA ONLY GT SCH (20:27)
[2020-02-05] MEDS: ATORVASTATIN 20 MG TABLET PO SCH (20:27)
[2020-02-06] MEDS: REFRESH EYE RIGHTEYE SCH ×6 (01:17→21:00)
[2020-02-06] MEDS: POLYVINYL ALCOHOL OPHT DROPS 15 ML BOTTLE EACHEYE SCH ×5 (04:19→20:30)
[2020-02-06] MEDS: PANTOPRAZOLE ORAL SUSPENSION 40 MG SUSPDR.PKT GT SCH (05:51)
[2020-02-06] MEDS: BLOOD SUGAR DIAGNOSTIC 1 EACH STRIP VI SCH ×3 (05:51→22:38)
[2020-02-06] MEDS: LEVOTHYROXINE SODIUM 50 MCG TABLET GT SCH (05:51)
[2020-02-06] MEDS: INSULIN GLARGINE,HUM 300 UNITS/3 ML CARTRIDGE SQ SCH ×2 (05:52→17:37)
[2020-02-06] MEDS: INSULIN REGULAR, HUMAN 300 UNIT/3 ML VIAL SQ PRN ×3 (05:53→22:45)
[2020-02-06 07:29] VITALS: BP 120/82
[2020-02-06] MEDS: HYDROGEN PEROXIDE 3% 118 ML BOTTLE TP SCH ×2 (07:29→19:03)
[2020-02-06] MEDS: DOCUSATE SODIUM 100 MG/10 ML LIQUID UDC GT SCH ×2 (08:22→21:00)
[2020-02-06] MEDS: ACIDOPHILUS/BULGARICUS CHEW TAB GT SCH ×2 (08:22→21:00)
[2020-02-06] MEDS: POTASSIUM CHLORIDE 20 MEQ POWDER PACKET GT SCH (08:25)
[2020-02-06] MEDS: OMEGA-3 FATTY ACIDS/FISH OIL CAPSULE PO SCH ×2 (08:26→17:33)
[2020-02-06] MEDS: COD LIVER OIL/ZINC OXIDE OINT 113 GM TUBE TOP SCH ×2 (08:26→21:00)
[2020-02-06] MEDS: BISACODYL 10 MG SUPP.RECT RC SCH (08:26)
[2020-02-06 19:51] VITALS: BP 116/76
[2020-02-06] MEDS: FERROUS SULFATE 330 MG/7.5 ML UDC- FOR SA ONLY GT SCH (21:00)
[2020-02-06] MEDS: ATORVASTATIN 20 MG TABLET PO SCH (21:00)
[2020-02-07] MEDS: REFRESH EYE RIGHTEYE SCH ×6 (01:20→20:35)
[2020-02-07] MEDS: POLYVINYL ALCOHOL OPHT DROPS 15 ML BOTTLE EACHEYE SCH ×6 (04:27→20:20)
[2020-02-07] MEDS: LEVOTHYROXINE SODIUM 50 MCG TABLET GT SCH (05:50)
[2020-02-07] MEDS: OMEPRAZOLE 20 MG CAPSULE.DR GT SCH (05:50)
[2020-02-07] MEDS: INSULIN GLARGINE,HUM 300 UNITS/3 ML CARTRIDGE SQ SCH ×2 (05:51→17:43)
[2020-02-07] MEDS: BLOOD SUGAR DIAGNOSTIC 1 EACH STRIP VI SCH ×3 (05:51→22:14)
[2020-02-07] MEDS: INSULIN REGULAR, HUMAN 300 UNIT/3 ML VIAL SQ PRN ×3 (05:56→22:23)
[2020-02-07] MEDS: HYDROGEN PEROXIDE 3% 118 ML BOTTLE TP SCH ×2 (07:33→21:22)
[2020-02-07 07:51] VITALS: BP 94/58
--- NOTE | 2020-02-07 08:20 | NUR ---
SEEN BY VERNA CARREON N.P (FOR DR. PADGETT ) AND WITH NNO.
[2020-02-07] MEDS: DOCUSATE SODIUM 100 MG/10 ML LIQUID UDC GT SCH ×2 (08:55→20:33)
[2020-02-07] MEDS: OMEGA-3 FATTY ACIDS/FISH OIL CAPSULE PO SCH ×2 (08:56→17:39)
[2020-02-07] MEDS: ACIDOPHILUS/BULGARICUS CHEW TAB GT SCH ×2 (08:56→20:33)
[2020-02-07] MEDS: POTASSIUM CHLORIDE 20 MEQ POWDER PACKET GT SCH (08:56)
[2020-02-07] MEDS: COD LIVER OIL/ZINC OXIDE OINT 113 GM TUBE TOP SCH ×2 (08:57→20:35)
[2020-02-07] MEDS: GLUCERNA 1.2 1000ML LIQUID GT PRN (10:48)
[2020-02-07 20:01] VITALS: BP 110/72
[2020-02-07] MEDS: ATORVASTATIN 20 MG TABLET PO SCH (20:33)
[2020-02-07] MEDS: FERROUS SULFATE 330 MG/7.5 ML UDC- FOR SA ONLY GT SCH (20:33)
[2020-02-08] MEDS: POLYVINYL ALCOHOL OPHT DROPS 15 ML BOTTLE EACHEYE SCH ×7 (00:06→23:08)
[2020-02-08] MEDS: REFRESH EYE RIGHTEYE SCH ×6 (01:00→21:03)
[2020-02-08] MEDS: GLUCERNA 1.2 1000ML LIQUID GT PRN ×2 (04:09→21:03)
[2020-02-08] MEDS: LEVOTHYROXINE SODIUM 50 MCG TABLET GT SCH (06:18)
[2020-02-08] MEDS: OMEPRAZOLE 20 MG CAPSULE.DR GT SCH (06:18)
[2020-02-08] MEDS: INSULIN GLARGINE,HUM 300 UNITS/3 ML CARTRIDGE SQ SCH ×2 (06:19→17:05)
[2020-02-08] MEDS: BLOOD SUGAR DIAGNOSTIC 1 EACH STRIP VI SCH ×3 (06:19→21:32)
[2020-02-08] MEDS: INSULIN REGULAR, HUMAN 300 UNIT/3 ML VIAL SQ PRN ×3 (06:20→21:31)
[2020-02-08] MEDS: HYDROGEN PEROXIDE 3% 118 ML BOTTLE TP SCH ×2 (07:06→18:49)
[2020-02-08 07:28] VITALS: BP 102/66
[2020-02-08] MEDS: ACIDOPHILUS/BULGARICUS CHEW TAB GT SCH ×2 (08:08→21:03)
[2020-02-08] MEDS: DOCUSATE SODIUM 100 MG/10 ML LIQUID UDC GT SCH ×2 (08:08→21:03)
[2020-02-08] MEDS: OMEGA-3 FATTY ACIDS/FISH OIL CAPSULE PO SCH ×2 (08:12→17:04)
[2020-02-08] MEDS: POTASSIUM CHLORIDE 20 MEQ POWDER PACKET GT SCH (08:12)
[2020-02-08] MEDS: COD LIVER OIL/ZINC OXIDE OINT 113 GM TUBE TOP SCH ×2 (08:13→21:03)
[2020-02-08] MEDS: BISACODYL 10 MG SUPP.RECT RC SCH (08:13)
--- NOTE | 2020-02-08 19:12 | NUR ---
SEEN BY DR. MEHUL Ga AND WITH NNO.
[2020-02-08 20:38] VITALS: BP 142/78
[2020-02-08] MEDS: ATORVASTATIN 20 MG TABLET PO SCH (21:03)
[2020-02-08] MEDS: FERROUS SULFATE 330 MG/7.5 ML UDC- FOR SA ONLY GT SCH (21:03)
[2020-02-09] MEDS: REFRESH EYE RIGHTEYE SCH ×6 (00:11→20:57)
[2020-02-09] MEDS: POLYVINYL ALCOHOL OPHT DROPS 15 ML BOTTLE EACHEYE SCH ×6 (04:19→23:13)
[2020-02-09] MEDS: BLOOD SUGAR DIAGNOSTIC 1 EACH STRIP VI SCH ×3 (05:45→21:18)
[2020-02-09] MEDS: OMEPRAZOLE 20 MG CAPSULE.DR GT SCH (05:45)
[2020-02-09] MEDS: LEVOTHYROXINE SODIUM 50 MCG TABLET GT SCH (05:45)
[2020-02-09] MEDS: INSULIN GLARGINE,HUM 300 UNITS/3 ML CARTRIDGE SQ SCH ×2 (05:46→18:01)
[2020-02-09] MEDS: INSULIN REGULAR, HUMAN 300 UNIT/3 ML VIAL SQ PRN ×3 (05:46→21:18)
[2020-02-09] MEDS: HYDROGEN PEROXIDE 3% 118 ML BOTTLE TP SCH ×2 (07:15→21:28)
[2020-02-09 07:26] VITALS: BP 114/63
[2020-02-09] MEDS: ACIDOPHILUS/BULGARICUS CHEW TAB GT SCH ×2 (08:36→20:57)
[2020-02-09] MEDS: COD LIVER OIL/ZINC OXIDE OINT 113 GM TUBE TOP SCH ×2 (08:37→20:57)
[2020-02-09] MEDS: OMEGA-3 FATTY ACIDS/FISH OIL CAPSULE PO SCH ×2 (08:39→16:37)
[2020-02-09] MEDS: DOCUSATE SODIUM 100 MG/10 ML LIQUID UDC GT SCH ×2 (08:39→20:57)
[2020-02-09] MEDS: POTASSIUM CHLORIDE 20 MEQ POWDER PACKET GT SCH (08:42)
[2020-02-09] MEDS: GLUCERNA 1.2 1000ML LIQUID GT PRN (14:23)
[2020-02-09 20:00] VITALS: BP 116/73
[2020-02-09] MEDS: ATORVASTATIN 20 MG TABLET PO SCH (20:57)
[2020-02-09] MEDS: FERROUS SULFATE 330 MG/7.5 ML UDC- FOR SA ONLY GT SCH (20:57)
--- NOTE | 2020-02-09 22:08 | NUR ---
WATCHMAKING TEACHER reported a blister on patient's foot. On assessment, noted with left lateral foot with fluid filled blister. Skin is intact and no redness noted around the affected area, handled very gently, initiated in- house treatment with Tegaderm at this. Patient is sleeping no signs of grimacing noted, kept clean and comfortable. Addendum: 02/09/20 at 2245 by MIMI ROBERTS RN Clarification of above notes: Blister is on Right lateral foot not on the left.
[2020-02-10] MEDS: REFRESH EYE RIGHTEYE SCH ×6 (00:39→21:16)
[2020-02-10] MEDS: POLYVINYL ALCOHOL OPHT DROPS 15 ML BOTTLE EACHEYE SCH ×6 (04:47→23:06)
[2020-02-10] MEDS: OMEPRAZOLE 20 MG CAPSULE.DR GT SCH (05:25)
[2020-02-10] MEDS: LEVOTHYROXINE SODIUM 50 MCG TABLET GT SCH (05:25)
[2020-02-10] MEDS: BLOOD SUGAR DIAGNOSTIC 1 EACH STRIP VI SCH ×3 (05:25→21:16)
[2020-02-10] MEDS: INSULIN GLARGINE,HUM 300 UNITS/3 ML CARTRIDGE SQ SCH ×2 (05:27→17:57)
[2020-02-10] MEDS: INSULIN REGULAR, HUMAN 300 UNIT/3 ML VIAL SQ PRN ×3 (05:27→21:16)
[2020-02-10] MEDS: HYDROGEN PEROXIDE 3% 118 ML BOTTLE TP SCH ×2 (07:14→21:21)
[2020-02-10 07:24] VITALS: BP 98/68
--- NOTE | 2020-02-10 08:00 | NUR ---
RT. LATERAL FOOT WATER BLISTER PICTURE TAKEN.
[2020-02-10] MEDS: DOCUSATE SODIUM 100 MG/10 ML LIQUID UDC GT SCH ×2 (08:16→20:50)
[2020-02-10] MEDS: ACIDOPHILUS/BULGARICUS CHEW TAB GT SCH ×2 (08:16→20:50)
[2020-02-10] MEDS: POTASSIUM CHLORIDE 20 MEQ POWDER PACKET GT SCH (08:18)
[2020-02-10] MEDS: BISACODYL 10 MG SUPP.RECT RC SCH (08:19)
[2020-02-10] MEDS: COD LIVER OIL/ZINC OXIDE OINT 113 GM TUBE TOP SCH ×2 (08:19→20:50)
[2020-02-10] MEDS: OMEGA-3 FATTY ACIDS/FISH OIL CAPSULE PO SCH ×2 (08:19→17:52)
[2020-02-10] MEDS: GLUCERNA 1.2 1000ML LIQUID GT PRN (13:12)
--- NOTE | 2020-02-10 15:55 | NUR ---
NEW ORDER WAS CARRIED OUT FROM DR. PADGETT FOR COVID [address] [facility] REQUIREMENT AND PT'S DTR. YOAN WAS CONTACTED AND UNABLE TO LEAVE MESSAGE D/T VOICEMAIL FULL.
[2020-02-10 20:24] VITALS: BP 138/74
[2020-02-10] MEDS: ATORVASTATIN 20 MG TABLET PO SCH (20:50)
[2020-02-10] MEDS: FERROUS SULFATE 330 MG/7.5 ML UDC- FOR SA ONLY GT SCH (20:50)
[2020-02-11] MEDS: REFRESH EYE RIGHTEYE SCH ×6 (00:13→21:03)
[2020-02-11] MEDS: POLYVINYL ALCOHOL OPHT DROPS 15 ML BOTTLE EACHEYE SCH ×5 (04:50→20:00)
[2020-02-11] MEDS: BLOOD SUGAR DIAGNOSTIC 1 EACH STRIP VI SCH ×3 (05:17→21:06)
[2020-02-11] MEDS: LEVOTHYROXINE SODIUM 50 MCG TABLET GT SCH (05:17)
[2020-02-11] MEDS: OMEPRAZOLE 20 MG CAPSULE.DR GT SCH (05:17)
[2020-02-11] MEDS: INSULIN GLARGINE,HUM 300 UNITS/3 ML CARTRIDGE SQ SCH ×2 (05:18→17:00)
[2020-02-11] MEDS: INSULIN REGULAR, HUMAN 300 UNIT/3 ML VIAL SQ PRN ×3 (05:19→21:12)
[2020-02-11 07:28] VITALS: BP 117/73
[2020-02-11] MEDS: ACIDOPHILUS/BULGARICUS CHEW TAB GT SCH ×2 (08:23→21:02)
[2020-02-11] MEDS: DOCUSATE SODIUM 100 MG/10 ML LIQUID UDC GT SCH ×2 (08:23→21:01)
[2020-02-11] MEDS: POTASSIUM CHLORIDE 20 MEQ POWDER PACKET GT SCH (08:23)
[2020-02-11] MEDS: COD LIVER OIL/ZINC OXIDE OINT 113 GM TUBE TOP SCH ×2 (08:24→21:03)
[2020-02-11] MEDS: OMEGA-3 FATTY ACIDS/FISH OIL CAPSULE PO SCH ×2 (08:24→17:00)
[2020-02-11] MEDS: GLUCERNA 1.2 1000ML LIQUID GT PRN (11:35)
[2020-02-11 20:34] VITALS: BP 127/71
[2020-02-11] MEDS: FERROUS SULFATE 330 MG/7.5 ML UDC- FOR SA ONLY GT SCH (21:02)
[2020-02-11] MEDS: ATORVASTATIN 20 MG TABLET PO SCH (21:02)
[2020-02-11] MEDS: HYDROGEN PEROXIDE 3% 118 ML BOTTLE TP SCH (21:03)
[2020-02-12] MEDS: REFRESH EYE RIGHTEYE SCH ×6 (01:36→21:56)
[2020-02-12] MEDS: POLYVINYL ALCOHOL OPHT DROPS 15 ML BOTTLE EACHEYE SCH ×6 (04:00→20:00)
[2020-02-12] MEDS: LEVOTHYROXINE SODIUM 50 MCG TABLET GT SCH (05:22)
[2020-02-12] MEDS: OMEPRAZOLE 20 MG CAPSULE.DR GT SCH (05:22)
[2020-02-12] MEDS: BLOOD SUGAR DIAGNOSTIC 1 EACH STRIP VI SCH ×3 (05:23→21:57)
[2020-02-12] MEDS: INSULIN REGULAR, HUMAN 300 UNIT/3 ML VIAL SQ PRN ×3 (05:28→21:58)
[2020-02-12] MEDS: INSULIN GLARGINE,HUM 300 UNITS/3 ML CARTRIDGE SQ SCH ×2 (05:30→17:03)
[2020-02-12 07:28] VITALS: BP 96/59
[2020-02-12] MEDS: DOCUSATE SODIUM 100 MG/10 ML LIQUID UDC GT SCH ×2 (08:42→21:56)
[2020-02-12] MEDS: ACIDOPHILUS/BULGARICUS CHEW TAB GT SCH ×2 (08:43→21:56)
[2020-02-12] MEDS: POTASSIUM CHLORIDE 20 MEQ POWDER PACKET GT SCH (08:43)
[2020-02-12] MEDS: BISACODYL 10 MG SUPP.RECT RC SCH (08:43)
[2020-02-12] MEDS: COD LIVER OIL/ZINC OXIDE OINT 113 GM TUBE TOP SCH ×2 (08:43→21:56)
[2020-02-12] MEDS: OMEGA-3 FATTY ACIDS/FISH OIL CAPSULE PO SCH ×2 (08:43→17:02)
[2020-02-12] MEDS: HYDROGEN PEROXIDE 3% 118 ML BOTTLE TP SCH ×2 (09:22→18:45)
[2020-02-12 19:45] VITALS: BP 120/80
[2020-02-12] MEDS: FERROUS SULFATE 330 MG/7.5 ML UDC- FOR SA ONLY GT SCH (21:56)
[2020-02-12] MEDS: ATORVASTATIN 20 MG TABLET PO SCH (21:56)
[2020-02-13] MEDS: GLUCERNA 1.2 1000ML LIQUID GT PRN ×3 (01:00→23:30)
--- NOTE | 2020-02-13 01:00 | NUR ---
Noted blistery rashes on patient's mid- chest, skin is intact. cleanse and initiated in- house treatment, kept skin clean and dry, will continue monitor.
[2020-02-13] MEDS: REFRESH EYE RIGHTEYE SCH ×6 (01:33→21:17)
[2020-02-13] MEDS: POLYVINYL ALCOHOL OPHT DROPS 15 ML BOTTLE EACHEYE SCH ×6 (04:00→20:00)
[2020-02-13] MEDS: LEVOTHYROXINE SODIUM 50 MCG TABLET GT SCH (05:20)
[2020-02-13] MEDS: OMEPRAZOLE 20 MG CAPSULE.DR GT SCH (05:20)
[2020-02-13] MEDS: INSULIN GLARGINE,HUM 300 UNITS/3 ML CARTRIDGE SQ SCH ×3 (05:27→22:24)
[2020-02-13] MEDS: BLOOD SUGAR DIAGNOSTIC 1 EACH STRIP VI SCH ×3 (05:27→21:18)
[2020-02-13] MEDS: INSULIN REGULAR, HUMAN 300 UNIT/3 ML VIAL SQ PRN ×3 (05:29→21:24)
[2020-02-13 07:26] VITALS: BP 102/63
[2020-02-13] MEDS: POTASSIUM CHLORIDE 20 MEQ POWDER PACKET GT SCH (08:19)
[2020-02-13] MEDS: DOCUSATE SODIUM 100 MG/10 ML LIQUID UDC GT SCH ×2 (08:19→21:17)
[2020-02-13] MEDS: ACIDOPHILUS/BULGARICUS CHEW TAB GT SCH ×2 (08:19→21:17)
[2020-02-13] MEDS: OMEGA-3 FATTY ACIDS/FISH OIL CAPSULE PO SCH ×2 (08:19→17:26)
[2020-02-13] MEDS: COD LIVER OIL/ZINC OXIDE OINT 113 GM TUBE TOP SCH ×2 (08:20→21:18)
[2020-02-13] MEDS: HYDROGEN PEROXIDE 3% 118 ML BOTTLE TP SCH ×2 (09:17→21:33)
[2020-02-13] MEDS: diphenhydrAMINE 1% CREAM 28.3 GM TUBE TP SCH ×2 (09:30→21:18)
[2020-02-13 19:52] VITALS: BP 138/77
[2020-02-13] MEDS: ATORVASTATIN 20 MG TABLET PO SCH (21:17)
[2020-02-13] MEDS: FERROUS SULFATE 330 MG/7.5 ML UDC- FOR SA ONLY GT SCH (21:17)
--- NOTE | 2020-02-13 22:05 | NUR ---
Seen with new order from Dr. Nolan to increase Lantus to 30 units Sub-Q every 12 hours, noted and carried out.
[2020-02-14] MEDS: REFRESH EYE RIGHTEYE SCH ×6 (01:58→21:31)
[2020-02-14] MEDS: POLYVINYL ALCOHOL OPHT DROPS 15 ML BOTTLE EACHEYE SCH ×6 (04:00→20:00)
[2020-02-14] MEDS: LEVOTHYROXINE SODIUM 50 MCG TABLET GT SCH (05:06)
[2020-02-14] MEDS: BLOOD SUGAR DIAGNOSTIC 1 EACH STRIP VI SCH ×3 (05:06→21:32)
[2020-02-14] MEDS: OMEPRAZOLE 20 MG CAPSULE.DR GT SCH (05:06)
[2020-02-14] MEDS: INSULIN REGULAR, HUMAN 300 UNIT/3 ML VIAL SQ PRN ×3 (05:24→21:33)
[2020-02-14 07:28] VITALS: BP 91/53
[2020-02-14] MEDS: HYDROGEN PEROXIDE 3% 118 ML BOTTLE TP SCH ×2 (07:32→21:34)
[2020-02-14] MEDS: DOCUSATE SODIUM 100 MG/10 ML LIQUID UDC GT SCH ×2 (08:27→21:28)
[2020-02-14] MEDS: BISACODYL 10 MG SUPP.RECT RC SCH (08:28)
[2020-02-14] MEDS: ACIDOPHILUS/BULGARICUS CHEW TAB GT SCH ×2 (08:28→21:29)
[2020-02-14] MEDS: OMEGA-3 FATTY ACIDS/FISH OIL CAPSULE PO SCH ×2 (08:28→17:21)
[2020-02-14] MEDS: POTASSIUM CHLORIDE 20 MEQ POWDER PACKET GT SCH (08:28)
[2020-02-14] MEDS: INSULIN GLARGINE,HUM 300 UNITS/3 ML CARTRIDGE SQ SCH ×2 (08:30→21:32)
[2020-02-14] MEDS: COD LIVER OIL/ZINC OXIDE OINT 113 GM TUBE TOP SCH ×2 (08:30→21:32)
[2020-02-14] MEDS: diphenhydrAMINE 1% CREAM 28.3 GM TUBE TP SCH ×2 (08:31→21:32)
[2020-02-14] MEDS: GLUCERNA 1.2 1000ML LIQUID GT PRN (17:21)
[2020-02-14 20:32] VITALS: BP 120/79
[2020-02-14] MEDS: FERROUS SULFATE 330 MG/7.5 ML UDC- FOR SA ONLY GT SCH (21:29)
[2020-02-14] MEDS: ATORVASTATIN 20 MG TABLET PO SCH (21:31)
[2020-02-15] MEDS: REFRESH EYE RIGHTEYE SCH ×6 (01:00→20:54)
[2020-02-15] MEDS: POLYVINYL ALCOHOL OPHT DROPS 15 ML BOTTLE EACHEYE SCH ×6 (04:00→20:47)
[2020-02-15] MEDS: INSULIN REGULAR, HUMAN 300 UNIT/3 ML VIAL SQ PRN ×3 (05:16→23:06)
[2020-02-15] MEDS: BLOOD SUGAR DIAGNOSTIC 1 EACH STRIP VI SCH ×3 (05:16→23:09)
[2020-02-15] MEDS: LEVOTHYROXINE SODIUM 50 MCG TABLET GT SCH (06:16)
[2020-02-15] MEDS: OMEPRAZOLE 20 MG CAPSULE.DR GT SCH (06:16)
[2020-02-15 07:29] VITALS: BP 121/66
[2020-02-15] MEDS: HYDROGEN PEROXIDE 3% 118 ML BOTTLE TP SCH ×2 (08:35→18:49)
[2020-02-15] MEDS: POTASSIUM CHLORIDE 20 MEQ POWDER PACKET GT SCH (09:00)
[2020-02-15] MEDS: OMEGA-3 FATTY ACIDS/FISH OIL CAPSULE PO SCH ×2 (09:00→17:19)
[2020-02-15] MEDS: DOCUSATE SODIUM 100 MG/10 ML LIQUID UDC GT SCH ×2 (09:00→20:48)
[2020-02-15] MEDS: diphenhydrAMINE 1% CREAM 28.3 GM TUBE TP SCH (09:00)
[2020-02-15] MEDS: ACIDOPHILUS/BULGARICUS CHEW TAB GT SCH ×2 (09:00→20:52)
[2020-02-15] MEDS: COD LIVER OIL/ZINC OXIDE OINT 113 GM TUBE TOP SCH ×2 (09:00→20:59)
[2020-02-15] MEDS: INSULIN GLARGINE,HUM 300 UNITS/3 ML CARTRIDGE SQ SCH ×2 (09:00→20:57)
[2020-02-15] MEDS: GLUCERNA 1.2 1000ML LIQUID GT PRN (12:15)
[2020-02-15] MEDS: FERROUS SULFATE 330 MG/7.5 ML UDC- FOR SA ONLY GT SCH (20:51)
[2020-02-15] MEDS: ATORVASTATIN 20 MG TABLET PO SCH (20:53)
[2020-02-15] MEDS: FLUOCINONIDE 0.05% CREAM 30 GM TUBE TP SCH (21:00)
[2020-02-15] MEDS: MUPIROCIN 2% OINT 22 GM TUBE TP SCH (21:01)
[2020-02-15 22:19] VITALS: BP 128/78
[2020-02-16] MEDS: POLYVINYL ALCOHOL OPHT DROPS 15 ML BOTTLE EACHEYE SCH ×6 (02:25→20:00)
[2020-02-16] MEDS: REFRESH EYE RIGHTEYE SCH ×6 (02:25→21:06)
[2020-02-16] MEDS: LEVOTHYROXINE SODIUM 50 MCG TABLET GT SCH (05:04)
[2020-02-16] MEDS: OMEPRAZOLE 20 MG CAPSULE.DR GT SCH (05:06)
[2020-02-16] MEDS: BLOOD SUGAR DIAGNOSTIC 1 EACH STRIP VI SCH ×3 (05:06→21:21)
[2020-02-16] MEDS: INSULIN REGULAR, HUMAN 300 UNIT/3 ML VIAL SQ PRN ×3 (05:13→21:33)
[2020-02-16 07:39] VITALS: BP 140/87
[2020-02-16] MEDS: ACIDOPHILUS/BULGARICUS CHEW TAB GT SCH ×2 (08:49→21:05)
[2020-02-16] MEDS: POTASSIUM CHLORIDE 20 MEQ POWDER PACKET GT SCH (08:49)
[2020-02-16] MEDS: BISACODYL 10 MG SUPP.RECT RC SCH (08:49)
[2020-02-16] MEDS: DOCUSATE SODIUM 100 MG/10 ML LIQUID UDC GT SCH ×2 (08:49→21:04)
[2020-02-16] MEDS: OMEGA-3 FATTY ACIDS/FISH OIL CAPSULE PO SCH ×2 (08:49→16:56)
[2020-02-16] MEDS: COD LIVER OIL/ZINC OXIDE OINT 113 GM TUBE TOP SCH ×2 (08:50→21:06)
[2020-02-16] MEDS: MUPIROCIN 2% OINT 22 GM TUBE TP SCH ×2 (08:50→21:06)
[2020-02-16] MEDS: INSULIN GLARGINE,HUM 300 UNITS/3 ML CARTRIDGE SQ SCH ×2 (08:50→21:32)
[2020-02-16] MEDS: FLUOCINONIDE 0.05% CREAM 30 GM TUBE TP SCH ×2 (08:51→21:06)
[2020-02-16] MEDS: GLUCERNA 1.2 1000ML LIQUID GT PRN (08:57)
[2020-02-16] MEDS: HYDROGEN PEROXIDE 3% 118 ML BOTTLE TP SCH ×2 (09:00→21:23)
[2020-02-16] MEDS: FERROUS SULFATE 330 MG/7.5 ML UDC- FOR SA ONLY GT SCH (21:05)
[2020-02-16] MEDS: ATORVASTATIN 20 MG TABLET PO SCH (21:06)
[2020-02-16 22:27] VITALS: BP 133/82
[2020-02-17] MEDS: REFRESH EYE RIGHTEYE SCH ×6 (01:00→21:45)
[2020-02-17] MEDS: POLYVINYL ALCOHOL OPHT DROPS 15 ML BOTTLE EACHEYE SCH ×6 (04:30→20:00)
[2020-02-17] MEDS: LEVOTHYROXINE SODIUM 50 MCG TABLET GT SCH (06:06)
[2020-02-17] MEDS: OMEPRAZOLE 20 MG CAPSULE.DR GT SCH (06:06)
[2020-02-17] MEDS: BLOOD SUGAR DIAGNOSTIC 1 EACH STRIP VI SCH ×3 (06:06→21:43)
[2020-02-17] MEDS: GLUCERNA 1.2 1000ML LIQUID GT PRN (06:07)
[2020-02-17] MEDS: INSULIN REGULAR, HUMAN 300 UNIT/3 ML VIAL SQ PRN ×3 (06:08→21:47)
[2020-02-17 07:50] VITALS: BP 140/86
[2020-02-17] MEDS: HYDROGEN PEROXIDE 3% 118 ML BOTTLE TP SCH ×2 (09:00→21:03)
[2020-02-17] MEDS: DOCUSATE SODIUM 100 MG/10 ML LIQUID UDC GT SCH ×2 (09:14→21:44)
[2020-02-17] MEDS: ACIDOPHILUS/BULGARICUS CHEW TAB GT SCH ×2 (09:14→21:44)
[2020-02-17] MEDS: OMEGA-3 FATTY ACIDS/FISH OIL CAPSULE PO SCH ×2 (09:15→17:10)
[2020-02-17] MEDS: POTASSIUM CHLORIDE 20 MEQ POWDER PACKET GT SCH (09:15)
[2020-02-17] MEDS: MUPIROCIN 2% OINT 22 GM TUBE TP SCH ×2 (09:17→21:45)
[2020-02-17] MEDS: FLUOCINONIDE 0.05% CREAM 30 GM TUBE TP SCH ×2 (09:17→21:45)
[2020-02-17] MEDS: COD LIVER OIL/ZINC OXIDE OINT 113 GM TUBE TOP SCH ×2 (09:17→21:45)
[2020-02-17] MEDS: INSULIN GLARGINE,HUM 300 UNITS/3 ML CARTRIDGE SQ SCH ×2 (09:17→21:46)
[2020-02-17] MEDS: HYDROGEN PEROXIDE 3% 118 ML BOTTLE TP PRN (09:29)
--- NOTE | 2020-02-17 11:42 | NUR ---
Seen and examined by Dr Paty Brownlee PODIATRIC AIDE,no new orders noted.
--- NOTE | 2020-02-17 18:35 | NUR ---
Covid 19 test done today.per [facility] requirement.Responsible democrat notified.
[2020-02-17] MEDS: ATORVASTATIN 20 MG TABLET PO SCH (21:44)
[2020-02-17] MEDS: FERROUS SULFATE 330 MG/7.5 ML UDC- FOR SA ONLY GT SCH (21:44)
[2020-02-17 22:25] VITALS: BP 126/75
[2020-02-18] MEDS: GLUCERNA 1.2 1000ML LIQUID GT PRN
[2020-02-18] MEDS: POLYVINYL ALCOHOL OPHT DROPS 15 ML BOTTLE EACHEYE SCH ×6 (00:34→20:00)
[2020-02-18] MEDS: REFRESH EYE RIGHTEYE SCH ×6 (01:00→21:56)
[2020-02-18] MEDS: LEVOTHYROXINE SODIUM 50 MCG TABLET GT SCH (05:32)
[2020-02-18] MEDS: OMEPRAZOLE 20 MG CAPSULE.DR GT SCH (05:32)
[2020-02-18] MEDS: BLOOD SUGAR DIAGNOSTIC 1 EACH STRIP VI SCH ×3 (05:51→21:55)
[2020-02-18] MEDS: INSULIN REGULAR, HUMAN 300 UNIT/3 ML VIAL SQ PRN ×3 (05:53→22:05)
[2020-02-18] MEDS: INSULIN GLARGINE,HUM 300 UNITS/3 ML CARTRIDGE SQ SCH ×2 (05:54→17:29)
[2020-02-18 07:30] VITALS: BP 111/75
[2020-02-18] MEDS: DOCUSATE SODIUM 100 MG/10 ML LIQUID UDC GT SCH ×2 (08:19→21:56)
[2020-02-18] MEDS: POTASSIUM CHLORIDE 20 MEQ POWDER PACKET GT SCH (08:20)
[2020-02-18] MEDS: ACIDOPHILUS/BULGARICUS CHEW TAB GT SCH ×2 (08:20→21:56)
[2020-02-18] MEDS: OMEGA-3 FATTY ACIDS/FISH OIL CAPSULE PO SCH ×2 (08:22→17:28)
[2020-02-18] MEDS: COD LIVER OIL/ZINC OXIDE OINT 113 GM TUBE TOP SCH ×2 (08:23→21:56)
[2020-02-18] MEDS: FLUOCINONIDE 0.05% CREAM 30 GM TUBE TP SCH ×2 (08:23→21:56)
[2020-02-18] MEDS: BISACODYL 10 MG SUPP.RECT RC SCH (08:23)
[2020-02-18] MEDS: MUPIROCIN 2% OINT 22 GM TUBE TP SCH ×2 (08:23→21:56)
[2020-02-18] MEDS: HYDROGEN PEROXIDE 3% 118 ML BOTTLE TP SCH ×2 (08:24→21:19)
--- NOTE | 2020-02-18 12:00 | NUR ---
SEEN BY ANAID Maguire AND WITH NNO.
--- NOTE | 2020-02-18 17:24 | NUR ---
PT'S DTR. TRIP AWARE OF NEGATIVE RESULT FOR COVID 19 TEST.
[2020-02-18 20:08] VITALS: BP 140/83
[2020-02-18] MEDS: FERROUS SULFATE 330 MG/7.5 ML UDC- FOR SA ONLY GT SCH (21:56)
[2020-02-18] MEDS: ATORVASTATIN 20 MG TABLET PO SCH (21:56)
[2020-02-19] MEDS: POLYVINYL ALCOHOL OPHT DROPS 15 ML BOTTLE EACHEYE SCH ×6 (00:59→20:00)
[2020-02-19] MEDS: REFRESH EYE RIGHTEYE SCH ×6 (01:04→21:42)
[2020-02-19] MEDS: BLOOD SUGAR DIAGNOSTIC 1 EACH STRIP VI SCH ×3 (05:15→22:03)
[2020-02-19] MEDS: LEVOTHYROXINE SODIUM 50 MCG TABLET GT SCH (05:15)
[2020-02-19] MEDS: OMEPRAZOLE 20 MG CAPSULE.DR GT SCH (05:15)
[2020-02-19] MEDS: INSULIN GLARGINE,HUM 300 UNITS/3 ML CARTRIDGE SQ SCH ×2 (05:19→17:34)
[2020-02-19] MEDS: INSULIN REGULAR, HUMAN 300 UNIT/3 ML VIAL SQ PRN ×3 (05:19→22:25)
[2020-02-19 07:17] VITALS: BP 103/62
[2020-02-19] MEDS: DOCUSATE SODIUM 100 MG/10 ML LIQUID UDC GT SCH ×2 (08:12→21:48)
[2020-02-19] MEDS: ACIDOPHILUS/BULGARICUS CHEW TAB GT SCH ×2 (08:13→21:38)
[2020-02-19] MEDS: POTASSIUM CHLORIDE 20 MEQ POWDER PACKET GT SCH (08:14)
[2020-02-19] MEDS: COD LIVER OIL/ZINC OXIDE OINT 113 GM TUBE TOP SCH ×2 (08:19→21:44)
[2020-02-19] MEDS: OMEGA-3 FATTY ACIDS/FISH OIL CAPSULE PO SCH ×2 (08:19→16:44)
[2020-02-19] MEDS: MUPIROCIN 2% OINT 22 GM TUBE TP SCH (08:21)
[2020-02-19] MEDS: FLUOCINONIDE 0.05% CREAM 30 GM TUBE TP SCH (08:22)
[2020-02-19] MEDS: HYDROGEN PEROXIDE 3% 118 ML BOTTLE TP SCH ×2 (08:35→21:24)
[2020-02-19] MEDS: DOXYCYCLINE HYCLATE 100 MG TABLET GT SCH (19:00)
[2020-02-19 20:03] VITALS: BP 126/84
[2020-02-19] MEDS: FERROUS SULFATE 330 MG/7.5 ML UDC- FOR SA ONLY GT SCH (21:40)
[2020-02-19] MEDS: ATORVASTATIN 20 MG TABLET PO SCH (21:49)
[2020-02-20] MEDS: POLYVINYL ALCOHOL OPHT DROPS 15 ML BOTTLE EACHEYE SCH ×6 (00:13→20:16)
[2020-02-20] MEDS: REFRESH EYE RIGHTEYE SCH ×7 (00:14→21:37)
[2020-02-20] MEDS: LEVOTHYROXINE SODIUM 50 MCG TABLET GT SCH (05:14)
[2020-02-20] MEDS: OMEPRAZOLE 20 MG CAPSULE.DR GT SCH (05:26)
[2020-02-20] MEDS: INSULIN GLARGINE,HUM 300 UNITS/3 ML CARTRIDGE SQ SCH ×2 (06:44→17:28)
[2020-02-20] MEDS: BLOOD SUGAR DIAGNOSTIC 1 EACH STRIP VI SCH ×3 (06:45→22:00)
[2020-02-20] MEDS: INSULIN REGULAR, HUMAN 300 UNIT/3 ML VIAL SQ PRN ×3 (06:47→23:05)
[2020-02-20] MEDS: HYDROGEN PEROXIDE 3% 118 ML BOTTLE TP SCH ×2 (07:20→18:42)
[2020-02-20 07:28] VITALS: BP 111/74
[2020-02-20] MEDS: DOCUSATE SODIUM 100 MG/10 ML LIQUID UDC GT SCH ×2 (08:52→21:36)
[2020-02-20] MEDS: POTASSIUM CHLORIDE 20 MEQ POWDER PACKET GT SCH (08:53)
[2020-02-20] MEDS: ACIDOPHILUS/BULGARICUS CHEW TAB GT SCH ×2 (08:53→21:36)
[2020-02-20] MEDS: OMEGA-3 FATTY ACIDS/FISH OIL CAPSULE PO SCH ×2 (08:54→17:26)
[2020-02-20] MEDS: DOXYCYCLINE HYCLATE 100 MG TABLET GT SCH (08:54)
[2020-02-20] MEDS: BISACODYL 10 MG SUPP.RECT RC SCH (08:54)
[2020-02-20] MEDS: COD LIVER OIL/ZINC OXIDE OINT 113 GM TUBE TOP SCH ×2 (08:55→21:37)
--- NOTE | 2020-02-20 18:05 | NUR ---
Seen and examined by Dr Nolan with new orders noted,
[2020-02-20 19:49] VITALS: BP 138/78
[2020-02-20] MEDS: FERROUS SULFATE 330 MG/7.5 ML UDC- FOR SA ONLY GT SCH (21:36)
[2020-02-20] MEDS: ATORVASTATIN 20 MG TABLET PO SCH (21:37)
[2020-02-21] MEDS: REFRESH EYE RIGHTEYE SCH ×6 (01:12→21:07)
[2020-02-21] MEDS: POLYVINYL ALCOHOL OPHT DROPS 15 ML BOTTLE EACHEYE SCH ×6 (04:06→20:00)
[2020-02-21] MEDS: OMEPRAZOLE 20 MG CAPSULE.DR GT SCH (06:26)
[2020-02-21] MEDS: LEVOTHYROXINE SODIUM 50 MCG TABLET GT SCH (06:26)
[2020-02-21] MEDS: INSULIN GLARGINE,HUM 300 UNITS/3 ML CARTRIDGE SQ SCH ×2 (06:27→17:32)
[2020-02-21] MEDS: BLOOD SUGAR DIAGNOSTIC 1 EACH STRIP VI SCH ×3 (06:27→22:11)
[2020-02-21] MEDS: INSULIN REGULAR, HUMAN 300 UNIT/3 ML VIAL SQ PRN ×3 (06:28→22:15)
[2020-02-21] MEDS: HYDROGEN PEROXIDE 3% 118 ML BOTTLE TP SCH ×2 (07:10→18:46)
[2020-02-21 07:49] VITALS: BP 112/72
[2020-02-21] MEDS: DOXYCYCLINE HYCLATE 100 MG TABLET GT SCH (08:38)
[2020-02-21] MEDS: ACIDOPHILUS/BULGARICUS CHEW TAB GT SCH ×2 (08:38→21:07)
[2020-02-21] MEDS: POTASSIUM CHLORIDE 20 MEQ POWDER PACKET GT SCH (08:38)
[2020-02-21] MEDS: DOCUSATE SODIUM 100 MG/10 ML LIQUID UDC GT SCH ×2 (08:38→21:07)
[2020-02-21] MEDS: OMEGA-3 FATTY ACIDS/FISH OIL CAPSULE PO SCH ×2 (08:42→16:08)
[2020-02-21] MEDS: COD LIVER OIL/ZINC OXIDE OINT 113 GM TUBE TOP SCH ×2 (08:43→21:07)
[2020-02-21 19:48] VITALS: BP 108/66
[2020-02-21] MEDS: ATORVASTATIN 20 MG TABLET PO SCH (21:07)
[2020-02-21] MEDS: FERROUS SULFATE 330 MG/7.5 ML UDC- FOR SA ONLY GT SCH (21:07)
[2020-02-22] MEDS: REFRESH EYE RIGHTEYE SCH ×6 (01:00→20:51)
[2020-02-22] MEDS: POLYVINYL ALCOHOL OPHT DROPS 15 ML BOTTLE EACHEYE SCH ×6 (04:52→20:51)
[2020-02-22] MEDS: OMEPRAZOLE 20 MG CAPSULE.DR GT SCH (05:04)
[2020-02-22] MEDS: LEVOTHYROXINE SODIUM 50 MCG TABLET GT SCH (05:04)
[2020-02-22] MEDS: BLOOD SUGAR DIAGNOSTIC 1 EACH STRIP VI SCH ×3 (05:04→22:20)
[2020-02-22] MEDS: INSULIN GLARGINE,HUM 300 UNITS/3 ML CARTRIDGE SQ SCH ×2 (05:06→17:20)
[2020-02-22] MEDS: INSULIN REGULAR, HUMAN 300 UNIT/3 ML VIAL SQ PRN ×3 (05:07→22:23)
[2020-02-22 07:31] VITALS: BP 120/77
[2020-02-22] MEDS: ACIDOPHILUS/BULGARICUS CHEW TAB GT SCH ×2 (08:43→20:51)
[2020-02-22] MEDS: DOCUSATE SODIUM 100 MG/10 ML LIQUID UDC GT SCH ×2 (08:43→20:51)
[2020-02-22] MEDS: POTASSIUM CHLORIDE 20 MEQ POWDER PACKET GT SCH (08:44)
[2020-02-22] MEDS: DOXYCYCLINE HYCLATE 100 MG TABLET GT SCH (08:44)
[2020-02-22] MEDS: OMEGA-3 FATTY ACIDS/FISH OIL CAPSULE PO SCH ×2 (08:44→17:18)
[2020-02-22] MEDS: COD LIVER OIL/ZINC OXIDE OINT 113 GM TUBE TOP SCH ×2 (08:45→20:51)
[2020-02-22] MEDS: BISACODYL 10 MG SUPP.RECT RC SCH (08:45)
[2020-02-22] MEDS: HYDROGEN PEROXIDE 3% 118 ML BOTTLE TP SCH ×2 (09:10→21:23)
--- NOTE | 2020-02-22 15:36 | NUR ---
SEEN BY DR. TRISTAN CAPPS WITH NNO.
[2020-02-22 20:28] VITALS: BP 119/78
[2020-02-22] MEDS: FERROUS SULFATE 330 MG/7.5 ML UDC- FOR SA ONLY GT SCH (20:51)
[2020-02-22] MEDS: ATORVASTATIN 20 MG TABLET PO SCH (20:51)
[2020-02-23] MEDS: REFRESH EYE RIGHTEYE SCH ×6 (00:37→20:04)
[2020-02-23] MEDS: POLYVINYL ALCOHOL OPHT DROPS 15 ML BOTTLE EACHEYE SCH ×6 (00:37→20:03)
[2020-02-23] MEDS: LEVOTHYROXINE SODIUM 50 MCG TABLET GT SCH (05:12)
[2020-02-23] MEDS: OMEPRAZOLE 20 MG CAPSULE.DR GT SCH (05:12)
[2020-02-23] MEDS: BLOOD SUGAR DIAGNOSTIC 1 EACH STRIP VI SCH ×3 (05:12→21:39)
[2020-02-23] MEDS: INSULIN GLARGINE,HUM 300 UNITS/3 ML CARTRIDGE SQ SCH ×2 (05:13→17:22)
[2020-02-23] MEDS: INSULIN REGULAR, HUMAN 300 UNIT/3 ML VIAL SQ PRN ×3 (05:14→21:41)
[2020-02-23 07:33] VITALS: BP 106/64
[2020-02-23] MEDS: DOCUSATE SODIUM 100 MG/10 ML LIQUID UDC GT SCH ×2 (08:25→20:04)
[2020-02-23] MEDS: ACIDOPHILUS/BULGARICUS CHEW TAB GT SCH ×2 (08:26→20:04)
[2020-02-23] MEDS: POTASSIUM CHLORIDE 20 MEQ POWDER PACKET GT SCH (08:26)
[2020-02-23] MEDS: HYDROGEN PEROXIDE 3% 118 ML BOTTLE TP SCH ×2 (08:55→21:18)
[2020-02-23] MEDS: COD LIVER OIL/ZINC OXIDE OINT 113 GM TUBE TOP SCH ×2 (09:50→20:04)
[2020-02-23] MEDS: OMEGA-3 FATTY ACIDS/FISH OIL CAPSULE PO SCH ×2 (09:50→17:21)
[2020-02-23] MEDS: GLUCERNA 1.2 1000ML LIQUID GT PRN (13:00)
[2020-02-23] MEDS: FERROUS SULFATE 330 MG/7.5 ML UDC- FOR SA ONLY GT SCH (20:04)
[2020-02-23] MEDS: ATORVASTATIN 20 MG TABLET PO SCH (20:04)
[2020-02-23 20:12] VITALS: BP 107/66
[2020-02-24] MEDS: POLYVINYL ALCOHOL OPHT DROPS 15 ML BOTTLE EACHEYE SCH ×6 (00:57→20:42)
[2020-02-24] MEDS: REFRESH EYE RIGHTEYE SCH ×6 (00:57→20:44)
[2020-02-24] MEDS: OMEPRAZOLE 20 MG CAPSULE.DR GT SCH (05:31)
[2020-02-24] MEDS: LEVOTHYROXINE SODIUM 50 MCG TABLET GT SCH (05:31)
[2020-02-24] MEDS: BLOOD SUGAR DIAGNOSTIC 1 EACH STRIP VI SCH ×3 (05:31→22:22)
[2020-02-24] MEDS: INSULIN REGULAR, HUMAN 300 UNIT/3 ML VIAL SQ PRN ×3 (05:32→22:23)
[2020-02-24] MEDS: INSULIN GLARGINE,HUM 300 UNITS/3 ML CARTRIDGE SQ SCH ×2 (05:32→17:41)
[2020-02-24] MEDS: HYDROGEN PEROXIDE 3% 118 ML BOTTLE TP SCH ×2 (07:13→20:48)
[2020-02-24 07:46] VITALS: BP 96/57
[2020-02-24] MEDS: ACIDOPHILUS/BULGARICUS CHEW TAB GT SCH ×2 (08:24→20:44)
[2020-02-24] MEDS: POTASSIUM CHLORIDE 20 MEQ POWDER PACKET GT SCH (08:24)
[2020-02-24] MEDS: DOCUSATE SODIUM 100 MG/10 ML LIQUID UDC GT SCH ×2 (08:24→20:44)
[2020-02-24] MEDS: BISACODYL 10 MG SUPP.RECT RC SCH (08:25)
[2020-02-24] MEDS: OMEGA-3 FATTY ACIDS/FISH OIL CAPSULE PO SCH ×2 (08:25→16:44)
[2020-02-24] MEDS: COD LIVER OIL/ZINC OXIDE OINT 113 GM TUBE TOP SCH ×2 (08:26→20:45)
[2020-02-24] MEDS: GLUCERNA 1.2 1000ML LIQUID GT PRN (13:28)
[2020-02-24 20:16] VITALS: BP 132/85
[2020-02-24] MEDS: ATORVASTATIN 20 MG TABLET PO SCH (20:44)
[2020-02-24] MEDS: FERROUS SULFATE 330 MG/7.5 ML UDC- FOR SA ONLY GT SCH (20:44)
[2020-02-25] MEDS: REFRESH EYE RIGHTEYE SCH ×6 (01:00→21:00)
[2020-02-25] MEDS: POLYVINYL ALCOHOL OPHT DROPS 15 ML BOTTLE EACHEYE SCH ×6 (04:49→20:28)
[2020-02-25] MEDS: BLOOD SUGAR DIAGNOSTIC 1 EACH STRIP VI SCH ×3 (05:25→22:38)
[2020-02-25] MEDS: OMEPRAZOLE 20 MG CAPSULE.DR GT SCH (05:25)
[2020-02-25] MEDS: INSULIN REGULAR, HUMAN 300 UNIT/3 ML VIAL SQ PRN ×3 (05:25→22:51)
[2020-02-25] MEDS: LEVOTHYROXINE SODIUM 50 MCG TABLET GT SCH (05:25)
[2020-02-25] MEDS: INSULIN GLARGINE,HUM 300 UNITS/3 ML CARTRIDGE SQ SCH ×2 (06:25→17:19)
--- NOTE | 2020-02-25 07:00 | NUR ---
Will test patient for COVID-19 today.
[2020-02-25 07:25] VITALS: BP 89/49
[2020-02-25] MEDS: DOCUSATE SODIUM 100 MG/10 ML LIQUID UDC GT SCH ×2 (08:53→21:00)
[2020-02-25] MEDS: ACIDOPHILUS/BULGARICUS CHEW TAB GT SCH ×2 (08:53→21:00)
[2020-02-25] MEDS: POTASSIUM CHLORIDE 20 MEQ POWDER PACKET GT SCH (08:53)
[2020-02-25] MEDS: OMEGA-3 FATTY ACIDS/FISH OIL CAPSULE PO SCH ×2 (08:54→16:55)
[2020-02-25] MEDS: COD LIVER OIL/ZINC OXIDE OINT 113 GM TUBE TOP SCH ×2 (08:54→21:00)
[2020-02-25] MEDS: HYDROGEN PEROXIDE 3% 118 ML BOTTLE TP SCH ×2 (09:23→21:27)
--- NOTE | 2020-02-25 10:21 | NUR ---
PT'S DTR. TRIP AWARE AND IN AGREEMENT FOR COVID 19 TEST TODAY.
[2020-02-25] MEDS: GLUCERNA 1.2 1000ML LIQUID GT PRN (11:43)
[2020-02-25 12:00] VITALS: BP 90/62
--- NOTE | 2020-02-25 12:20 | NUR ---
SEEN BY ANAID Maguire AND WITH NNO.
[2020-02-25 20:14] VITALS: BP 139/62
[2020-02-25] MEDS: FERROUS SULFATE 330 MG/7.5 ML UDC- FOR SA ONLY GT SCH (21:00)
[2020-02-25] MEDS: ATORVASTATIN 20 MG TABLET PO SCH (21:00)
[2020-02-26] MEDS: POLYVINYL ALCOHOL OPHT DROPS 15 ML BOTTLE EACHEYE SCH ×7 (00:15→23:41)
[2020-02-26] MEDS: REFRESH EYE RIGHTEYE SCH ×6 (01:04→20:12)
[2020-02-26] MEDS: LEVOTHYROXINE SODIUM 50 MCG TABLET GT SCH (06:20)
[2020-02-26] MEDS: OMEPRAZOLE 20 MG CAPSULE.DR GT SCH (06:20)
[2020-02-26] MEDS: BLOOD SUGAR DIAGNOSTIC 1 EACH STRIP VI SCH ×3 (06:21→21:59)
[2020-02-26] MEDS: INSULIN GLARGINE,HUM 300 UNITS/3 ML CARTRIDGE SQ SCH ×2 (06:22→17:02)
[2020-02-26] MEDS: INSULIN REGULAR, HUMAN 300 UNIT/3 ML VIAL SQ PRN ×3 (06:23→22:09)
[2020-02-26] MEDS: HYDROGEN PEROXIDE 3% 118 ML BOTTLE TP SCH ×2 (07:21→21:08)
[2020-02-26 07:33] VITALS: BP 105/68
[2020-02-26] MEDS: DOCUSATE SODIUM 100 MG/10 ML LIQUID UDC GT SCH ×2 (08:53→20:12)
[2020-02-26] MEDS: ACIDOPHILUS/BULGARICUS CHEW TAB GT SCH ×2 (08:53→20:12)
[2020-02-26] MEDS: POTASSIUM CHLORIDE 20 MEQ POWDER PACKET GT SCH (08:54)
[2020-02-26] MEDS: OMEGA-3 FATTY ACIDS/FISH OIL CAPSULE PO SCH ×2 (08:59→16:59)
[2020-02-26] MEDS: BISACODYL 10 MG SUPP.RECT RC SCH (08:59)
[2020-02-26] MEDS: COD LIVER OIL/ZINC OXIDE OINT 113 GM TUBE TOP SCH ×2 (09:00→20:12)
[2020-02-26] MEDS: GLUCERNA 1.2 1000ML LIQUID GT PRN (11:41)
--- NOTE | 2020-02-26 13:27 | NUR ---
INTERDISCIPLINARY PLAN OF CARE CONFERENCE was held today. Patient's daughter Mana was not available to participate in the meeting. Dr. Nolan and the Interdisciplinary team reviewed the current plan of care in detail. RN reported on the patient's medical condition. No major changes in patient's condition were reported by RN or by the other disciplines. See RN IDT conference notes. See also all other disciplines IDT notes and physician's progress notes for additional details.
--- NOTE | 2020-02-26 20:00 | NUR ---
Received pt on HT-50 ventilator with the following settings of AC-14, Vt-500, PEEP+5, FIO2-35%, trached with Portex#9 cuffed trach, which is in the place and secure properly. No distress noted. Airway care done, pt responded to physical stimuli. HME changed. Resus. bag and back up trach at bedside. Vent and alarms checked and reset.
[2020-02-26 20:05] VITALS: BP 109/67
[2020-02-26] MEDS: ATORVASTATIN 20 MG TABLET PO SCH (20:12)
[2020-02-26] MEDS: FERROUS SULFATE 330 MG/7.5 ML UDC- FOR SA ONLY GT SCH (20:12)
--- NOTE | 2020-02-26 22:34 | NUR ---
Reynold from Lab called and stated that patient's Covid-19 test resulted negative.
[2020-02-27] MEDS: REFRESH EYE RIGHTEYE SCH ×6 (01:00→20:43)
[2020-02-27] MEDS: GLUCERNA 1.2 1000ML LIQUID GT PRN (03:33)
[2020-02-27] MEDS: POLYVINYL ALCOHOL OPHT DROPS 15 ML BOTTLE EACHEYE SCH ×6 (04:01→23:24)
[2020-02-27] MEDS: LEVOTHYROXINE SODIUM 50 MCG TABLET GT SCH (05:56)
[2020-02-27] MEDS: OMEPRAZOLE 20 MG CAPSULE.DR GT SCH (05:56)
[2020-02-27] MEDS: INSULIN GLARGINE,HUM 300 UNITS/3 ML CARTRIDGE SQ SCH ×2 (05:57→17:55)
[2020-02-27] MEDS: BLOOD SUGAR DIAGNOSTIC 1 EACH STRIP VI SCH ×3 (05:58→22:16)
[2020-02-27] MEDS: INSULIN REGULAR, HUMAN 300 UNIT/3 ML VIAL SQ PRN ×3 (05:59→22:18)
[2020-02-27 07:20] VITALS: BP 120/66
[2020-02-27] MEDS: DOCUSATE SODIUM 100 MG/10 ML LIQUID UDC GT SCH ×2 (08:25→20:42)
[2020-02-27] MEDS: ACIDOPHILUS/BULGARICUS CHEW TAB GT SCH ×2 (08:25→20:43)
[2020-02-27] MEDS: OMEGA-3 FATTY ACIDS/FISH OIL CAPSULE PO SCH ×2 (08:34→16:06)
[2020-02-27] MEDS: POTASSIUM CHLORIDE 20 MEQ POWDER PACKET GT SCH (08:34)
[2020-02-27] MEDS: COD LIVER OIL/ZINC OXIDE OINT 113 GM TUBE TOP SCH ×2 (08:35→20:43)
[2020-02-27] MEDS: HYDROGEN PEROXIDE 3% 118 ML BOTTLE TP SCH ×2 (09:06→20:46)
--- NOTE | 2020-02-27 11:00 | NUR ---
Mana pt's daughter notified COVID-19 test result was negative.
--- NOTE | 2020-02-27 20:01 | NUR ---
Received pt on HT-50 ventilator with the following settings of AC-14, Vt-500, PEEP+5, FIO2-35%, trached with Portex#9 cuffed trach, which is in the place and secure properly. No respiratory distress noted. Airway care done, pt responded to physical stimuli. HME changed. Resus. bag and back up trach at bedside. Vent and alarms checked and reset.
[2020-02-27] MEDS: FERROUS SULFATE 330 MG/7.5 ML UDC- FOR SA ONLY GT SCH (20:42)
[2020-02-27] MEDS: ATORVASTATIN 20 MG TABLET PO SCH (20:43)
[2020-02-27 22:24] VITALS: BP 138/77
[2020-02-28] MEDS: REFRESH EYE RIGHTEYE SCH ×6 (01:05→20:45)
[2020-02-28] MEDS: GLUCERNA 1.2 1000ML LIQUID GT PRN (01:05)
[2020-02-28] MEDS: POLYVINYL ALCOHOL OPHT DROPS 15 ML BOTTLE EACHEYE SCH ×5 (04:00→20:00)
[2020-02-28] MEDS: LEVOTHYROXINE SODIUM 50 MCG TABLET GT SCH (06:02)
[2020-02-28] MEDS: OMEPRAZOLE 20 MG CAPSULE.DR GT SCH (06:02)
[2020-02-28] MEDS: BLOOD SUGAR DIAGNOSTIC 1 EACH STRIP VI SCH ×3 (06:04→22:27)
[2020-02-28] MEDS: INSULIN GLARGINE,HUM 300 UNITS/3 ML CARTRIDGE SQ SCH ×2 (06:04→17:12)
[2020-02-28] MEDS: INSULIN REGULAR, HUMAN 300 UNIT/3 ML VIAL SQ PRN ×3 (06:06→22:37)
[2020-02-28] MEDS: HYDROGEN PEROXIDE 3% 118 ML BOTTLE TP SCH ×2 (07:12→18:49)
[2020-02-28 07:26] VITALS: BP 94/61
[2020-02-28] MEDS: OMEGA-3 FATTY ACIDS/FISH OIL CAPSULE PO SCH ×2 (09:07→16:43)
[2020-02-28] MEDS: POTASSIUM CHLORIDE 20 MEQ POWDER PACKET GT SCH (09:07)
[2020-02-28] MEDS: DOCUSATE SODIUM 100 MG/10 ML LIQUID UDC GT SCH ×2 (09:07→20:42)
[2020-02-28] MEDS: ACIDOPHILUS/BULGARICUS CHEW TAB GT SCH ×2 (09:07→20:43)
[2020-02-28] MEDS: COD LIVER OIL/ZINC OXIDE OINT 113 GM TUBE TOP SCH ×2 (09:07→20:46)
[2020-02-28] MEDS: BISACODYL 10 MG SUPP.RECT RC SCH (09:07)
[2020-02-28 19:56] VITALS: BP 120/68
[2020-02-28] MEDS: FERROUS SULFATE 330 MG/7.5 ML UDC- FOR SA ONLY GT SCH (20:42)
[2020-02-28] MEDS: ATORVASTATIN 20 MG TABLET PO SCH (20:43)
[2020-02-29] MEDS: POLYVINYL ALCOHOL OPHT DROPS 15 ML BOTTLE EACHEYE SCH ×7 (00:51→23:10)
[2020-02-29] MEDS: REFRESH EYE RIGHTEYE SCH ×6 (01:00→21:34)
[2020-02-29] MEDS: GLUCERNA 1.2 1000ML LIQUID GT PRN ×2 (03:57→21:37)
[2020-02-29] MEDS: BLOOD SUGAR DIAGNOSTIC 1 EACH STRIP VI SCH ×3 (06:11→21:34)
[2020-02-29] MEDS: LEVOTHYROXINE SODIUM 50 MCG TABLET GT SCH (06:11)
[2020-02-29] MEDS: OMEPRAZOLE 20 MG CAPSULE.DR GT SCH (06:11)
[2020-02-29] MEDS: INSULIN GLARGINE,HUM 300 UNITS/3 ML CARTRIDGE SQ SCH ×2 (06:12→18:10)
[2020-02-29] MEDS: INSULIN REGULAR, HUMAN 300 UNIT/3 ML VIAL SQ PRN ×3 (06:14→21:36)
[2020-02-29 07:32] VITALS: BP 122/71
[2020-02-29] MEDS: HYDROGEN PEROXIDE 3% 118 ML BOTTLE TP SCH ×2 (08:59→21:20)
[2020-02-29] MEDS: ACIDOPHILUS/BULGARICUS CHEW TAB GT SCH ×2 (09:33→21:34)
[2020-02-29] MEDS: OMEGA-3 FATTY ACIDS/FISH OIL CAPSULE PO SCH ×2 (09:33→16:07)
[2020-02-29] MEDS: DOCUSATE SODIUM 100 MG/10 ML LIQUID UDC GT SCH ×2 (09:33→21:34)
[2020-02-29] MEDS: POTASSIUM CHLORIDE 20 MEQ POWDER PACKET GT SCH (09:33)
[2020-02-29] MEDS: COD LIVER OIL/ZINC OXIDE OINT 113 GM TUBE TOP SCH ×2 (09:33→21:34)
[2020-02-29 19:25] VITALS: BP 132/70
[2020-02-29] MEDS: ATORVASTATIN 20 MG TABLET PO SCH (21:34)
[2020-02-29] MEDS: FERROUS SULFATE 330 MG/7.5 ML UDC- FOR SA ONLY GT SCH (21:34)
[2020-03-01] MEDS: REFRESH EYE RIGHTEYE SCH ×6 (01:09→21:14)
[2020-03-01] MEDS: POLYVINYL ALCOHOL OPHT DROPS 15 ML BOTTLE EACHEYE SCH ×6 (04:25→23:07)
[2020-03-01] MEDS: LEVOTHYROXINE SODIUM 50 MCG TABLET GT SCH (05:20)
[2020-03-01] MEDS: OMEPRAZOLE 20 MG CAPSULE.DR GT SCH (05:20)
[2020-03-01] MEDS: BLOOD SUGAR DIAGNOSTIC 1 EACH STRIP VI SCH ×3 (05:20→21:37)
[2020-03-01] MEDS: INSULIN REGULAR, HUMAN 300 UNIT/3 ML VIAL SQ PRN ×3 (05:24→21:39)
[2020-03-01] MEDS: INSULIN GLARGINE,HUM 300 UNITS/3 ML CARTRIDGE SQ SCH ×2 (05:25→17:11)
[2020-03-01 07:28] VITALS: BP 129/84
[2020-03-01] MEDS: DOCUSATE SODIUM 100 MG/10 ML LIQUID UDC GT SCH ×2 (08:07→21:14)
[2020-03-01] MEDS: ACIDOPHILUS/BULGARICUS CHEW TAB GT SCH ×2 (08:07→21:14)
[2020-03-01] MEDS: OMEGA-3 FATTY ACIDS/FISH OIL CAPSULE PO SCH ×2 (08:08→17:02)
[2020-03-01] MEDS: POTASSIUM CHLORIDE 20 MEQ POWDER PACKET GT SCH (08:08)
[2020-03-01] MEDS: BISACODYL 10 MG SUPP.RECT RC SCH (08:09)
[2020-03-01] MEDS: COD LIVER OIL/ZINC OXIDE OINT 113 GM TUBE TOP SCH ×2 (08:09→21:14)
[2020-03-01] MEDS: HYDROGEN PEROXIDE 3% 118 ML BOTTLE TP SCH ×2 (09:02→18:41)
[2020-03-01] MEDS: GLUCERNA 1.2 1000ML LIQUID GT PRN (18:00)
[2020-03-01 19:26] VITALS: BP 155/75
[2020-03-01] MEDS: FERROUS SULFATE 330 MG/7.5 ML UDC- FOR SA ONLY GT SCH (21:14)
[2020-03-01] MEDS: ATORVASTATIN 20 MG TABLET PO SCH (21:14)
[2020-03-02] MEDS: REFRESH EYE RIGHTEYE SCH ×6 (01:10→21:13)
[2020-03-02] MEDS: POLYVINYL ALCOHOL OPHT DROPS 15 ML BOTTLE EACHEYE SCH ×6 (03:58→23:18)
[2020-03-02] MEDS: OMEPRAZOLE 20 MG CAPSULE.DR GT SCH (05:26)
[2020-03-02] MEDS: BLOOD SUGAR DIAGNOSTIC 1 EACH STRIP VI SCH ×3 (05:26→21:21)
[2020-03-02] MEDS: LEVOTHYROXINE SODIUM 50 MCG TABLET GT SCH (05:26)
[2020-03-02] MEDS: INSULIN REGULAR, HUMAN 300 UNIT/3 ML VIAL SQ PRN ×3 (05:27→21:22)
[2020-03-02] MEDS: INSULIN GLARGINE,HUM 300 UNITS/3 ML CARTRIDGE SQ SCH ×2 (05:28→17:16)
[2020-03-02 07:22] VITALS: BP 121/79
[2020-03-02] MEDS: DOCUSATE SODIUM 100 MG/10 ML LIQUID UDC GT SCH ×2 (08:27→21:13)
[2020-03-02] MEDS: POTASSIUM CHLORIDE 20 MEQ POWDER PACKET GT SCH (08:28)
[2020-03-02] MEDS: ACIDOPHILUS/BULGARICUS CHEW TAB GT SCH ×2 (08:28→21:13)
[2020-03-02] MEDS: COD LIVER OIL/ZINC OXIDE OINT 113 GM TUBE TOP SCH ×2 (08:33→21:13)
[2020-03-02] MEDS: OMEGA-3 FATTY ACIDS/FISH OIL CAPSULE PO SCH ×2 (08:33→17:11)
[2020-03-02] MEDS: HYDROGEN PEROXIDE 3% 118 ML BOTTLE TP SCH ×2 (09:00→20:28)
[2020-03-02] MEDS: GLUCERNA 1.2 1000ML LIQUID GT PRN (17:15)
[2020-03-02 19:33] VITALS: BP 121/77
[2020-03-02] MEDS: FERROUS SULFATE 330 MG/7.5 ML UDC- FOR SA ONLY GT SCH (21:13)
[2020-03-02] MEDS: ATORVASTATIN 20 MG TABLET PO SCH (21:13)
[2020-03-03] MEDS: REFRESH EYE RIGHTEYE SCH ×6 (00:40→21:45)
[2020-03-03] MEDS: POLYVINYL ALCOHOL OPHT DROPS 15 ML BOTTLE EACHEYE SCH ×5 (04:09→20:00)
[2020-03-03] MEDS: LEVOTHYROXINE SODIUM 50 MCG TABLET GT SCH (05:17)
[2020-03-03] MEDS: OMEPRAZOLE 20 MG CAPSULE.DR GT SCH (05:17)
[2020-03-03] MEDS: INSULIN GLARGINE,HUM 300 UNITS/3 ML CARTRIDGE SQ SCH ×2 (05:19→17:25)
[2020-03-03] MEDS: INSULIN REGULAR, HUMAN 300 UNIT/3 ML VIAL SQ PRN ×2 (05:20→21:47)
[2020-03-03] MEDS: BLOOD SUGAR DIAGNOSTIC 1 EACH STRIP VI SCH ×3 (05:26→21:45)
[2020-03-03] MEDS: HYDROGEN PEROXIDE 3% 118 ML BOTTLE TP SCH ×2 (07:12→21:19)
[2020-03-03 07:33] VITALS: BP 101/67
[2020-03-03] MEDS: POTASSIUM CHLORIDE 20 MEQ POWDER PACKET GT SCH (08:39)
[2020-03-03] MEDS: BISACODYL 10 MG SUPP.RECT RC SCH (08:39)
[2020-03-03] MEDS: DOCUSATE SODIUM 100 MG/10 ML LIQUID UDC GT SCH ×2 (08:39→21:33)
[2020-03-03] MEDS: ACIDOPHILUS/BULGARICUS CHEW TAB GT SCH ×2 (08:39→21:44)
[2020-03-03] MEDS: OMEGA-3 FATTY ACIDS/FISH OIL CAPSULE PO SCH ×2 (08:39→17:24)
[2020-03-03] MEDS: COD LIVER OIL/ZINC OXIDE OINT 113 GM TUBE TOP SCH ×2 (08:40→21:45)
[2020-03-03] MEDS: GLUCERNA 1.2 1000ML LIQUID GT PRN (14:03)
[2020-03-03 20:24] VITALS: BP 111/67
[2020-03-03] MEDS: FERROUS SULFATE 330 MG/7.5 ML UDC- FOR SA ONLY GT SCH (21:33)
[2020-03-03] MEDS: ATORVASTATIN 20 MG TABLET PO SCH (21:44)
[2020-03-04] MEDS: POLYVINYL ALCOHOL OPHT DROPS 15 ML BOTTLE EACHEYE SCH ×6 (00:57→20:00)
[2020-03-04] MEDS: REFRESH EYE RIGHTEYE SCH ×6 (01:18→21:46)
[2020-03-04] MEDS: LEVOTHYROXINE SODIUM 50 MCG TABLET GT SCH (05:42)
[2020-03-04] MEDS: OMEPRAZOLE 20 MG CAPSULE.DR GT SCH (05:42)
[2020-03-04] MEDS: BLOOD SUGAR DIAGNOSTIC 1 EACH STRIP VI SCH ×3 (05:43→21:48)
[2020-03-04] MEDS: INSULIN GLARGINE,HUM 300 UNITS/3 ML CARTRIDGE SQ SCH ×2 (05:43→18:45)
[2020-03-04] MEDS: INSULIN REGULAR, HUMAN 300 UNIT/3 ML VIAL SQ PRN ×2 (05:44→21:54)
[2020-03-04 07:28] VITALS: BP 122/74
[2020-03-04] MEDS: POTASSIUM CHLORIDE 20 MEQ POWDER PACKET GT SCH (08:19)
[2020-03-04] MEDS: ACIDOPHILUS/BULGARICUS CHEW TAB GT SCH ×2 (08:19→21:45)
[2020-03-04] MEDS: DOCUSATE SODIUM 100 MG/10 ML LIQUID UDC GT SCH ×2 (08:19→21:44)
[2020-03-04] MEDS: COD LIVER OIL/ZINC OXIDE OINT 113 GM TUBE TOP SCH ×2 (08:27→21:47)
[2020-03-04] MEDS: OMEGA-3 FATTY ACIDS/FISH OIL CAPSULE PO SCH ×2 (08:27→17:33)
[2020-03-04] MEDS: HYDROGEN PEROXIDE 3% 118 ML BOTTLE TP SCH ×2 (09:35→21:05)
[2020-03-04] MEDS: GLUCERNA 1.2 1000ML LIQUID GT PRN (12:22)
[2020-03-04 20:13] VITALS: BP 121/69
[2020-03-04] MEDS: ATORVASTATIN 20 MG TABLET PO SCH (21:45)
[2020-03-04] MEDS: FERROUS SULFATE 330 MG/7.5 ML UDC- FOR SA ONLY GT SCH (21:45)
[2020-03-05] MEDS: REFRESH EYE RIGHTEYE SCH ×6 (01:00→21:39)
[2020-03-05] MEDS: GLUCERNA 1.2 1000ML LIQUID GT PRN (02:00)
[2020-03-05] MEDS: POLYVINYL ALCOHOL OPHT DROPS 15 ML BOTTLE EACHEYE SCH ×6 (04:00→20:00)
[2020-03-05] MEDS: LEVOTHYROXINE SODIUM 50 MCG TABLET GT SCH (05:17)
[2020-03-05] MEDS: OMEPRAZOLE 20 MG CAPSULE.DR GT SCH (05:17)
[2020-03-05] MEDS: INSULIN GLARGINE,HUM 300 UNITS/3 ML CARTRIDGE SQ SCH ×2 (05:33→17:48)
[2020-03-05] MEDS: BLOOD SUGAR DIAGNOSTIC 1 EACH STRIP VI SCH ×3 (05:33→21:39)
[2020-03-05] MEDS: INSULIN REGULAR, HUMAN 300 UNIT/3 ML VIAL SQ PRN ×3 (05:35→21:37)
[2020-03-05 07:55] VITALS: BP 132/78
[2020-03-05] MEDS: HYDROGEN PEROXIDE 3% 118 ML BOTTLE TP SCH ×2 (08:47→21:00)
[2020-03-05] MEDS: POTASSIUM CHLORIDE 20 MEQ POWDER PACKET GT SCH (09:02)
[2020-03-05] MEDS: ACIDOPHILUS/BULGARICUS CHEW TAB GT SCH ×2 (09:02→21:39)
[2020-03-05] MEDS: BISACODYL 10 MG SUPP.RECT RC SCH (09:02)
[2020-03-05] MEDS: OMEGA-3 FATTY ACIDS/FISH OIL CAPSULE PO SCH ×2 (09:02→17:45)
[2020-03-05] MEDS: DOCUSATE SODIUM 100 MG/10 ML LIQUID UDC GT SCH ×2 (09:02→21:38)
[2020-03-05] MEDS: COD LIVER OIL/ZINC OXIDE OINT 113 GM TUBE TOP SCH ×2 (09:03→21:39)
[2020-03-05] MEDS: FERROUS SULFATE 330 MG/7.5 ML UDC- FOR SA ONLY GT SCH (21:38)
[2020-03-05] MEDS: ATORVASTATIN 20 MG TABLET PO SCH (21:39)
[2020-03-05 22:41] VITALS: BP 109/66
[2020-03-06] MEDS: GLUCERNA 1.2 1000ML LIQUID GT PRN ×2 (00:35→22:30)
[2020-03-06] MEDS: REFRESH EYE RIGHTEYE SCH ×6 (01:00→21:36)
[2020-03-06] MEDS: POLYVINYL ALCOHOL OPHT DROPS 15 ML BOTTLE EACHEYE SCH ×6 (04:02→20:00)
[2020-03-06] MEDS: LEVOTHYROXINE SODIUM 50 MCG TABLET GT SCH (05:17)
[2020-03-06] MEDS: OMEPRAZOLE 20 MG CAPSULE.DR GT SCH (05:17)
[2020-03-06] MEDS: INSULIN GLARGINE,HUM 300 UNITS/3 ML CARTRIDGE SQ SCH ×2 (05:20→17:01)
[2020-03-06] MEDS: BLOOD SUGAR DIAGNOSTIC 1 EACH STRIP VI SCH ×3 (05:23→21:33)
[2020-03-06] MEDS: INSULIN REGULAR, HUMAN 300 UNIT/3 ML VIAL SQ PRN ×3 (05:25→21:37)
[2020-03-06] MEDS: HYDROGEN PEROXIDE 3% 118 ML BOTTLE TP SCH ×2 (07:30→20:53)
[2020-03-06 07:44] VITALS: BP 93/62
[2020-03-06] MEDS: ACIDOPHILUS/BULGARICUS CHEW TAB GT SCH ×2 (08:44→21:36)
[2020-03-06] MEDS: DOCUSATE SODIUM 100 MG/10 ML LIQUID UDC GT SCH ×2 (08:44→21:35)
[2020-03-06] MEDS: COD LIVER OIL/ZINC OXIDE OINT 113 GM TUBE TOP SCH ×2 (08:48→21:36)
[2020-03-06] MEDS: POTASSIUM CHLORIDE 20 MEQ POWDER PACKET GT SCH (08:48)
[2020-03-06] MEDS: OMEGA-3 FATTY ACIDS/FISH OIL CAPSULE PO SCH ×2 (08:48→16:57)
--- NOTE | 2020-03-06 19:03 | NUR ---
PT. WAS SEEN AND EXAMINED BY DR. CARVER AND WITH NEW ORDERS CARRIED OUT.
[2020-03-06 20:00] VITALS: BP 115/65
[2020-03-06] MEDS: FERROUS SULFATE 330 MG/7.5 ML UDC- FOR SA ONLY GT SCH (21:36)
[2020-03-06] MEDS: ATORVASTATIN 20 MG TABLET PO SCH (21:36)
[2020-03-06 22:00] VITALS: BP 115/65
[2020-03-07] MEDS: REFRESH EYE RIGHTEYE SCH ×6 (01:18→21:20)
[2020-03-07] MEDS: POLYVINYL ALCOHOL OPHT DROPS 15 ML BOTTLE EACHEYE SCH ×6 (04:38→20:00)
[2020-03-07] MEDS: OMEPRAZOLE 20 MG CAPSULE.DR GT SCH (05:19)
[2020-03-07] MEDS: LEVOTHYROXINE SODIUM 50 MCG TABLET GT SCH (05:19)
[2020-03-07] MEDS: BLOOD SUGAR DIAGNOSTIC 1 EACH STRIP VI SCH ×3 (05:20→22:35)
[2020-03-07] MEDS: INSULIN GLARGINE,HUM 300 UNITS/3 ML CARTRIDGE SQ SCH ×2 (05:20→18:23)
[2020-03-07] MEDS: INSULIN REGULAR, HUMAN 300 UNIT/3 ML VIAL SQ PRN ×2 (05:21→14:30)
[2020-03-07 07:45] VITALS: BP 93/62
[2020-03-07] MEDS: DOCUSATE SODIUM 100 MG/10 ML LIQUID UDC GT SCH ×2 (08:55→21:20)
[2020-03-07] MEDS: OMEGA-3 FATTY ACIDS/FISH OIL CAPSULE PO SCH ×2 (08:55→16:49)
[2020-03-07] MEDS: POTASSIUM CHLORIDE 20 MEQ POWDER PACKET GT SCH (08:55)
[2020-03-07] MEDS: BISACODYL 10 MG SUPP.RECT RC SCH (08:55)
[2020-03-07] MEDS: COD LIVER OIL/ZINC OXIDE OINT 113 GM TUBE TOP SCH ×2 (08:55→21:20)
[2020-03-07] MEDS: ACIDOPHILUS/BULGARICUS CHEW TAB GT SCH ×2 (08:55→21:20)
[2020-03-07] MEDS: HYDROGEN PEROXIDE 3% 118 ML BOTTLE TP SCH ×2 (09:26→21:31)
[2020-03-07] MEDS: ATORVASTATIN 20 MG TABLET PO SCH (21:20)
[2020-03-07] MEDS: FERROUS SULFATE 330 MG/7.5 ML UDC- FOR SA ONLY GT SCH (21:20)
[2020-03-07 22:19] VITALS: BP 122/77
[2020-03-08] MEDS: POLYVINYL ALCOHOL OPHT DROPS 15 ML BOTTLE EACHEYE SCH ×7 (00:09→23:50)
[2020-03-08] MEDS: INSULIN REGULAR, HUMAN 300 UNIT/3 ML VIAL SQ PRN ×4 (00:14→22:14)
[2020-03-08] MEDS: REFRESH EYE RIGHTEYE SCH ×6 (01:23→20:19)
[2020-03-08] MEDS: LEVOTHYROXINE SODIUM 50 MCG TABLET GT SCH (05:46)
[2020-03-08] MEDS: OMEPRAZOLE 20 MG CAPSULE.DR GT SCH (05:46)
[2020-03-08] MEDS: INSULIN GLARGINE,HUM 300 UNITS/3 ML CARTRIDGE SQ SCH ×2 (05:47→17:06)
[2020-03-08] MEDS: BLOOD SUGAR DIAGNOSTIC 1 EACH STRIP VI SCH ×3 (06:07→22:11)
[2020-03-08 07:33] VITALS: BP 113/71
[2020-03-08] MEDS: OMEGA-3 FATTY ACIDS/FISH OIL CAPSULE PO SCH ×2 (08:11→17:05)
[2020-03-08] MEDS: ACIDOPHILUS/BULGARICUS CHEW TAB GT SCH ×2 (08:11→20:18)
[2020-03-08] MEDS: DOCUSATE SODIUM 100 MG/10 ML LIQUID UDC GT SCH ×2 (08:11→20:16)
[2020-03-08] MEDS: POTASSIUM CHLORIDE 20 MEQ POWDER PACKET GT SCH (08:11)
[2020-03-08] MEDS: COD LIVER OIL/ZINC OXIDE OINT 113 GM TUBE TOP SCH ×2 (08:11→20:19)
[2020-03-08] MEDS: HYDROGEN PEROXIDE 3% 118 ML BOTTLE TP SCH ×2 (09:08→20:19)
[2020-03-08] MEDS: GLUCERNA 1.2 1000ML LIQUID GT PRN (13:35)
--- NOTE | 2020-03-08 20:00 | NUR ---
Received pt on HT-50 ventilator with the following settings of AC-14, Vt-500, PEEP+5, FIO2-35%, trached with Portex#9 cuffed trach, which is in the place and secure. No distress noted. Airway care done, pt responded to physical stimuli. HME and Sx Guaman changed. Resus. bag and back up trach at bedside. Vent and alarms checked and reset.
[2020-03-08] MEDS: FERROUS SULFATE 330 MG/7.5 ML UDC- FOR SA ONLY GT SCH (20:16)
[2020-03-08] MEDS: ATORVASTATIN 20 MG TABLET PO SCH (20:26)
[2020-03-08 22:17] VITALS: BP 135/77
[2020-03-09] MEDS: REFRESH EYE RIGHTEYE SCH ×6 (00:04→20:58)
[2020-03-09] MEDS: POLYVINYL ALCOHOL OPHT DROPS 15 ML BOTTLE EACHEYE SCH ×5 (03:14→20:56)
[2020-03-09] MEDS: LEVOTHYROXINE SODIUM 50 MCG TABLET GT SCH (05:35)
[2020-03-09] MEDS: OMEPRAZOLE 20 MG CAPSULE.DR GT SCH (05:35)
[2020-03-09] MEDS: BLOOD SUGAR DIAGNOSTIC 1 EACH STRIP VI SCH ×3 (05:35→22:58)
[2020-03-09] MEDS: INSULIN GLARGINE,HUM 300 UNITS/3 ML CARTRIDGE SQ SCH ×2 (05:41→17:18)
[2020-03-09] MEDS: INSULIN REGULAR, HUMAN 300 UNIT/3 ML VIAL SQ PRN ×3 (05:42→22:59)
[2020-03-09] MEDS: HYDROGEN PEROXIDE 3% 118 ML BOTTLE TP SCH ×2 (07:27→21:13)
[2020-03-09 07:34] VITALS: BP 107/62
[2020-03-09] MEDS: DOCUSATE SODIUM 100 MG/10 ML LIQUID UDC GT SCH ×2 (08:35→20:56)
[2020-03-09] MEDS: POTASSIUM CHLORIDE 20 MEQ POWDER PACKET GT SCH (08:39)
[2020-03-09] MEDS: BISACODYL 10 MG SUPP.RECT RC SCH (08:39)
[2020-03-09] MEDS: ACIDOPHILUS/BULGARICUS CHEW TAB GT SCH ×2 (08:39→20:56)
[2020-03-09] MEDS: OMEGA-3 FATTY ACIDS/FISH OIL CAPSULE PO SCH ×2 (08:39→17:17)
[2020-03-09] MEDS: COD LIVER OIL/ZINC OXIDE OINT 113 GM TUBE TOP SCH ×2 (08:40→20:59)
[2020-03-09] MEDS: GLUCERNA 1.2 1000ML LIQUID GT PRN (12:35)
[2020-03-09] MEDS: FERROUS SULFATE 330 MG/7.5 ML UDC- FOR SA ONLY GT SCH (20:56)
[2020-03-09] MEDS: ATORVASTATIN 20 MG TABLET PO SCH (20:58)
[2020-03-09 21:24] VITALS: BP 118/68
[2020-03-10] MEDS: REFRESH EYE RIGHTEYE SCH ×6 (01:07→20:28)
[2020-03-10] MEDS: POLYVINYL ALCOHOL OPHT DROPS 15 ML BOTTLE EACHEYE SCH ×6 (04:33→20:27)
[2020-03-10] MEDS: OMEPRAZOLE 20 MG CAPSULE.DR GT SCH (05:18)
[2020-03-10] MEDS: LEVOTHYROXINE SODIUM 50 MCG TABLET GT SCH (05:18)
[2020-03-10] MEDS: BLOOD SUGAR DIAGNOSTIC 1 EACH STRIP VI SCH ×3 (05:18→21:58)
[2020-03-10] MEDS: INSULIN GLARGINE,HUM 300 UNITS/3 ML CARTRIDGE SQ SCH ×2 (05:19→17:37)
[2020-03-10] MEDS: INSULIN REGULAR, HUMAN 300 UNIT/3 ML VIAL SQ PRN ×3 (05:20→22:58)
[2020-03-10 07:08] LABS: BILIRUBIN,TOTAL 0.5 mg/dL (0.2-1.0); CREATININE 0.7 mg/dL (0.6-1.3); PHOSPHOROUS 3.9 mg/dL (2.5-4.9); POTASSIUM 3.5 mmol/L (3.5-5.1); TOTAL PROTEIN, SERUM 7.6 g/dL (6.4-8.2)
[2020-03-10 07:11] LABS: BASOPHILS % (AUTO) 0.3 % (0.0-2.0); EOSINOPHILS # (AUTO) 0.3 K/uL (0.0-0.7); EOSINOPHILS % (AUTO) 4.2 % (0.0-7.0); HEMATOCRIT 34.7 % (36.7-47.1); HEMOGLOBIN 11.5 g/dL (12.5-16.3); LYMPHOCYTES # (AUTO) 1.5 K/uL (20.0-40.0); LYMPHOCYTES % (AUTO) 21.2 % (20.5-51.5); MEAN CORPUSCULAR HEMOGLOBIN 28.6 uug (23.8-33.4); MEAN CORPUSCULAR HGB CONC 33 g/dL (32.5-36.3); MEAN CORPUSCULAR VOLUME 86.5 fL (73.0-96.2); MONOCYTES # (AUTO) 0.6 K/uL (2.0-10.0); MONOCYTES % (AUTO) 8.1 % (0.0-11.0); NEUTROPHILS # (AUTO) 4.6 K/uL (1.8-8.9); NEUTROPHILS % (AUTO) 66.2 % (38.5-71.5); PLATELET COUNT (AUTO) 185 K/uL (152-348); RED BLOOD CELL COUNT(AUTO) 4.01 MIL/uL (4.06-5.63); WHITE BLOOD COUNT (AUTO) 6.9 K/uL (3.6-10.2)
[2020-03-10 07:25] VITALS: BP 115/67
[2020-03-10] MEDS: HYDROGEN PEROXIDE 3% 118 ML BOTTLE TP SCH ×2 (07:25→19:05)
[2020-03-10] MEDS: DOCUSATE SODIUM 100 MG/10 ML LIQUID UDC GT SCH ×2 (08:33→20:27)
[2020-03-10] MEDS: ACIDOPHILUS/BULGARICUS CHEW TAB GT SCH ×2 (08:34→20:27)
[2020-03-10] MEDS: POTASSIUM CHLORIDE 20 MEQ POWDER PACKET GT SCH (08:34)
[2020-03-10] MEDS: OMEGA-3 FATTY ACIDS/FISH OIL CAPSULE PO SCH ×2 (08:35→17:37)
[2020-03-10] MEDS: COD LIVER OIL/ZINC OXIDE OINT 113 GM TUBE TOP SCH ×2 (08:36→20:28)
[2020-03-10 20:14] VITALS: BP 136/76
[2020-03-10] MEDS: FERROUS SULFATE 330 MG/7.5 ML UDC- FOR SA ONLY GT SCH (20:27)
[2020-03-10] MEDS: ATORVASTATIN 20 MG TABLET PO SCH (20:28)
[2020-03-11] MEDS: REFRESH EYE RIGHTEYE SCH ×6 (01:42→21:29)
[2020-03-11] MEDS: POLYVINYL ALCOHOL OPHT DROPS 15 ML BOTTLE EACHEYE SCH ×6 (04:20→20:00)
[2020-03-11] MEDS: LEVOTHYROXINE SODIUM 50 MCG TABLET GT SCH (05:17)
[2020-03-11] MEDS: OMEPRAZOLE 20 MG CAPSULE.DR GT SCH (05:17)
[2020-03-11] MEDS: BLOOD SUGAR DIAGNOSTIC 1 EACH STRIP VI SCH ×3 (05:18→21:25)
[2020-03-11] MEDS: INSULIN REGULAR, HUMAN 300 UNIT/3 ML VIAL SQ PRN ×3 (05:21→21:31)
[2020-03-11] MEDS: INSULIN GLARGINE,HUM 300 UNITS/3 ML CARTRIDGE SQ SCH ×2 (05:21→18:12)
[2020-03-11 07:32] VITALS: BP 109/64
[2020-03-11] MEDS: DOCUSATE SODIUM 100 MG/10 ML LIQUID UDC GT SCH ×2 (08:50→21:29)
[2020-03-11] MEDS: ACIDOPHILUS/BULGARICUS CHEW TAB GT SCH ×2 (08:50→21:29)
[2020-03-11] MEDS: POTASSIUM CHLORIDE 20 MEQ POWDER PACKET GT SCH (08:51)
[2020-03-11] MEDS: OMEGA-3 FATTY ACIDS/FISH OIL CAPSULE PO SCH ×2 (09:02→17:00)
[2020-03-11] MEDS: COD LIVER OIL/ZINC OXIDE OINT 113 GM TUBE TOP SCH ×2 (09:03→21:29)
[2020-03-11] MEDS: BISACODYL 10 MG SUPP.RECT RC SCH (09:03)
[2020-03-11] MEDS: HYDROGEN PEROXIDE 3% 118 ML BOTTLE TP SCH ×2 (09:48→20:51)
[2020-03-11 20:00] VITALS: BP 128/68
[2020-03-11] MEDS: ATORVASTATIN 20 MG TABLET PO SCH (21:29)
[2020-03-11] MEDS: FERROUS SULFATE 330 MG/7.5 ML UDC- FOR SA ONLY GT SCH (21:29)
[2020-03-12] MEDS: REFRESH EYE RIGHTEYE SCH ×6 (01:10→21:13)
[2020-03-12] MEDS: POLYVINYL ALCOHOL OPHT DROPS 15 ML BOTTLE EACHEYE SCH ×6 (04:58→20:00)
[2020-03-12] MEDS: OMEPRAZOLE 20 MG CAPSULE.DR GT SCH (05:16)
[2020-03-12] MEDS: LEVOTHYROXINE SODIUM 50 MCG TABLET GT SCH (05:16)
[2020-03-12] MEDS: BLOOD SUGAR DIAGNOSTIC 1 EACH STRIP VI SCH ×3 (05:17→21:14)
[2020-03-12] MEDS: INSULIN REGULAR, HUMAN 300 UNIT/3 ML VIAL SQ PRN ×3 (05:27→21:15)
[2020-03-12] MEDS: INSULIN GLARGINE,HUM 300 UNITS/3 ML CARTRIDGE SQ SCH ×2 (05:28→18:07)
[2020-03-12 07:23] VITALS: BP 146/81
[2020-03-12] MEDS: HYDROGEN PEROXIDE 3% 118 ML BOTTLE TP SCH ×2 (09:00→21:25)
[2020-03-12] MEDS: ACIDOPHILUS/BULGARICUS CHEW TAB GT SCH ×2 (09:03→21:13)
[2020-03-12] MEDS: POTASSIUM CHLORIDE 20 MEQ POWDER PACKET GT SCH (09:04)
[2020-03-12] MEDS: OMEGA-3 FATTY ACIDS/FISH OIL CAPSULE PO SCH ×2 (09:04→17:55)
[2020-03-12] MEDS: COD LIVER OIL/ZINC OXIDE OINT 113 GM TUBE TOP SCH ×2 (09:05→21:14)
[2020-03-12] MEDS: GLUCERNA 1.2 1000ML LIQUID GT PRN (09:08)
[2020-03-12] MEDS: DOCUSATE SODIUM 100 MG/10 ML LIQUID UDC GT SCH ×2 (09:14→21:13)
[2020-03-12 19:59] VITALS: BP 129/74
[2020-03-12] MEDS: FERROUS SULFATE 330 MG/7.5 ML UDC- FOR SA ONLY GT SCH (21:13)
[2020-03-12] MEDS: ATORVASTATIN 20 MG TABLET PO SCH (21:13)
[2020-03-12] MEDS: COD LIVER OIL/ZINC OXIDE OINT 113 GM TUBE TOP PRN (21:16)
[2020-03-13] MEDS: REFRESH EYE RIGHTEYE SCH ×6 (01:16→21:19)
[2020-03-13] MEDS: POLYVINYL ALCOHOL OPHT DROPS 15 ML BOTTLE EACHEYE SCH ×6 (04:00→20:00)
[2020-03-13] MEDS: LEVOTHYROXINE SODIUM 50 MCG TABLET GT SCH (05:47)
[2020-03-13] MEDS: OMEPRAZOLE 20 MG CAPSULE.DR GT SCH (05:47)
[2020-03-13] MEDS: BLOOD SUGAR DIAGNOSTIC 1 EACH STRIP VI SCH ×3 (05:48→22:25)
[2020-03-13] MEDS: INSULIN GLARGINE,HUM 300 UNITS/3 ML CARTRIDGE SQ SCH ×2 (05:49→18:16)
[2020-03-13] MEDS: GLUCERNA 1.2 1000ML LIQUID GT PRN (05:50)
[2020-03-13] MEDS: INSULIN REGULAR, HUMAN 300 UNIT/3 ML VIAL SQ PRN ×3 (05:51→22:27)
[2020-03-13 07:41] VITALS: BP 145/79
[2020-03-13] MEDS: OMEGA-3 FATTY ACIDS/FISH OIL CAPSULE PO SCH (08:18)
[2020-03-13] MEDS: ACIDOPHILUS/BULGARICUS CHEW TAB GT SCH ×2 (08:18→21:18)
[2020-03-13] MEDS: BISACODYL 10 MG SUPP.RECT RC SCH (08:18)
[2020-03-13] MEDS: POTASSIUM CHLORIDE 20 MEQ POWDER PACKET GT SCH (08:18)
[2020-03-13] MEDS: DOCUSATE SODIUM 100 MG/10 ML LIQUID UDC GT SCH ×2 (08:18→21:18)
[2020-03-13] MEDS: COD LIVER OIL/ZINC OXIDE OINT 113 GM TUBE TOP SCH ×2 (08:19→21:19)
[2020-03-13] MEDS: HYDROGEN PEROXIDE 3% 118 ML BOTTLE TP SCH ×2 (09:00→21:16)
--- NOTE | 2020-03-13 17:15 | NUR ---
CALLED AND NOTIFIED [employer]IBLE [employer] OF ANNUAL PPD TEST. NOTIFIED TRIP OF THE PPD TEST, AND SHE OKAYED TO GIVE TEST.
[2020-03-13] MEDS: OMEGA-3 FATTY ACIDS/FISH OIL CAPSULE GT SCH (18:16)
[2020-03-13 20:00] VITALS: BP 111/64
[2020-03-13] MEDS: FERROUS SULFATE 330 MG/7.5 ML UDC- FOR SA ONLY GT SCH (21:18)
[2020-03-13] MEDS: ATORVASTATIN 20 MG TABLET PO SCH (21:19)
[2020-03-14] MEDS: REFRESH EYE RIGHTEYE SCH ×6 (00:39→20:41)
[2020-03-14] MEDS: POLYVINYL ALCOHOL OPHT DROPS 15 ML BOTTLE EACHEYE SCH ×6 (00:39→20:40)
[2020-03-14] MEDS: GLUCERNA 1.2 1000ML LIQUID GT PRN ×2 (00:40→20:42)
[2020-03-14] MEDS: LEVOTHYROXINE SODIUM 50 MCG TABLET GT SCH (05:06)
[2020-03-14] MEDS: OMEPRAZOLE 20 MG CAPSULE.DR GT SCH (05:06)
[2020-03-14] MEDS: OMEGA-3 FATTY ACIDS/FISH OIL CAPSULE GT SCH ×2 (05:06→17:22)
[2020-03-14] MEDS: BLOOD SUGAR DIAGNOSTIC 1 EACH STRIP VI SCH ×3 (05:06→22:12)
[2020-03-14] MEDS: INSULIN REGULAR, HUMAN 300 UNIT/3 ML VIAL SQ PRN ×3 (05:10→22:15)
[2020-03-14] MEDS: INSULIN GLARGINE,HUM 300 UNITS/3 ML CARTRIDGE SQ SCH ×2 (05:11→17:26)
[2020-03-14 07:29] VITALS: BP 140/84
--- NOTE | 2020-03-14 07:30 | NUR ---
THERMODYNAMICS TEACHER reported skin problem on patient's buttock, on assessment, noted with excoriation on right buttock, initiated in- house treatment at this time.
[2020-03-14] MEDS: DOCUSATE SODIUM 100 MG/10 ML LIQUID UDC GT SCH ×2 (08:30→20:41)
[2020-03-14] MEDS: ACIDOPHILUS/BULGARICUS CHEW TAB GT SCH ×2 (08:31→20:41)
[2020-03-14] MEDS: POTASSIUM CHLORIDE 20 MEQ POWDER PACKET GT SCH (08:31)
[2020-03-14] MEDS: COD LIVER OIL/ZINC OXIDE OINT 113 GM TUBE TOP SCH ×4 (08:33→20:41)
[2020-03-14] MEDS: HYDROGEN PEROXIDE 3% 118 ML BOTTLE TP SCH ×2 (08:50→21:22)
[2020-03-14 20:00] VITALS: BP 109/67
[2020-03-14] MEDS: FERROUS SULFATE 330 MG/7.5 ML UDC- FOR SA ONLY GT SCH (20:41)
[2020-03-14] MEDS: ATORVASTATIN 20 MG TABLET PO SCH (20:41)
[2020-03-15] MEDS: REFRESH EYE RIGHTEYE SCH ×6 (00:33→20:43)
[2020-03-15] MEDS: POLYVINYL ALCOHOL OPHT DROPS 15 ML BOTTLE EACHEYE SCH ×6 (00:33→20:42)
[2020-03-15] MEDS: LEVOTHYROXINE SODIUM 50 MCG TABLET GT SCH (05:04)
[2020-03-15] MEDS: OMEPRAZOLE 20 MG CAPSULE.DR GT SCH (05:04)
[2020-03-15] MEDS: OMEGA-3 FATTY ACIDS/FISH OIL CAPSULE GT SCH ×2 (05:04→17:19)
[2020-03-15] MEDS: BLOOD SUGAR DIAGNOSTIC 1 EACH STRIP VI SCH ×3 (05:04→21:49)
[2020-03-15] MEDS: INSULIN REGULAR, HUMAN 300 UNIT/3 ML VIAL SQ PRN ×3 (05:07→21:52)
[2020-03-15] MEDS: INSULIN GLARGINE,HUM 300 UNITS/3 ML CARTRIDGE SQ SCH ×2 (05:08→17:08)
[2020-03-15 07:46] VITALS: BP 157/88
[2020-03-15] MEDS: HYDROGEN PEROXIDE 3% 118 ML BOTTLE TP SCH ×2 (07:47→21:30)
[2020-03-15] MEDS: ACIDOPHILUS/BULGARICUS CHEW TAB GT SCH ×2 (08:38→20:42)
[2020-03-15] MEDS: DOCUSATE SODIUM 100 MG/10 ML LIQUID UDC GT SCH ×2 (08:38→20:42)
[2020-03-15] MEDS: BISACODYL 10 MG SUPP.RECT RC SCH (08:38)
[2020-03-15] MEDS: COD LIVER OIL/ZINC OXIDE OINT 113 GM TUBE TOP SCH ×4 (08:38→20:43)
[2020-03-15] MEDS: POTASSIUM CHLORIDE 20 MEQ POWDER PACKET GT SCH (08:38)
[2020-03-15] MEDS: GLUCERNA 1.2 1000ML LIQUID GT PRN (17:19)
[2020-03-15] MEDS: FERROUS SULFATE 330 MG/7.5 ML UDC- FOR SA ONLY GT SCH (20:42)
[2020-03-15] MEDS: ATORVASTATIN 20 MG TABLET PO SCH (20:42)
[2020-03-15 22:03] VITALS: BP 126/77
[2020-03-16] MEDS: POLYVINYL ALCOHOL OPHT DROPS 15 ML BOTTLE EACHEYE SCH ×6 (00:41→20:00)
[2020-03-16] MEDS: REFRESH EYE RIGHTEYE SCH ×6 (00:41→21:04)
[2020-03-16] MEDS: BLOOD SUGAR DIAGNOSTIC 1 EACH STRIP VI SCH ×3 (05:09→21:07)
[2020-03-16] MEDS: OMEGA-3 FATTY ACIDS/FISH OIL CAPSULE GT SCH ×2 (05:09→17:25)
[2020-03-16] MEDS: LEVOTHYROXINE SODIUM 50 MCG TABLET GT SCH (05:09)
[2020-03-16] MEDS: OMEPRAZOLE 20 MG CAPSULE.DR GT SCH (05:09)
[2020-03-16] MEDS: INSULIN REGULAR, HUMAN 300 UNIT/3 ML VIAL SQ PRN ×2 (05:10→13:15)
[2020-03-16] MEDS: INSULIN GLARGINE,HUM 300 UNITS/3 ML CARTRIDGE SQ SCH ×2 (05:11→17:25)
[2020-03-16 07:33] VITALS: BP 136/81
[2020-03-16] MEDS: POTASSIUM CHLORIDE 20 MEQ POWDER PACKET GT SCH (08:07)
[2020-03-16] MEDS: COD LIVER OIL/ZINC OXIDE OINT 113 GM TUBE TOP SCH ×4 (08:07→21:04)
[2020-03-16] MEDS: ACIDOPHILUS/BULGARICUS CHEW TAB GT SCH ×2 (08:07→21:02)
[2020-03-16] MEDS: DOCUSATE SODIUM 100 MG/10 ML LIQUID UDC GT SCH ×2 (08:07→21:02)
[2020-03-16] MEDS: HYDROGEN PEROXIDE 3% 118 ML BOTTLE TP SCH ×2 (09:53→19:03)
--- NOTE | 2020-03-16 16:00 | NUR ---
Seen and examined by Marvel Martinez Np (for Dr West) no new orders noted.
[2020-03-16 20:19] VITALS: BP 117/68
[2020-03-16] MEDS: FERROUS SULFATE 330 MG/7.5 ML UDC- FOR SA ONLY GT SCH (21:02)
[2020-03-16] MEDS: ATORVASTATIN 20 MG TABLET PO SCH (21:04)
[2020-03-17] MEDS: REFRESH EYE RIGHTEYE SCH ×6 (01:00→21:24)
[2020-03-17] MEDS: INSULIN REGULAR, HUMAN 300 UNIT/3 ML VIAL SQ PRN ×4 (03:15→21:28)
[2020-03-17] MEDS: POLYVINYL ALCOHOL OPHT DROPS 15 ML BOTTLE EACHEYE SCH ×6 (04:00→20:00)
[2020-03-17] MEDS: OMEGA-3 FATTY ACIDS/FISH OIL CAPSULE GT SCH ×2 (05:12→17:10)
[2020-03-17] MEDS: LEVOTHYROXINE SODIUM 50 MCG TABLET GT SCH (05:12)
[2020-03-17] MEDS: OMEPRAZOLE 20 MG CAPSULE.DR GT SCH (05:12)
[2020-03-17] MEDS: BLOOD SUGAR DIAGNOSTIC 1 EACH STRIP VI SCH ×3 (05:13→21:26)
[2020-03-17] MEDS: INSULIN GLARGINE,HUM 300 UNITS/3 ML CARTRIDGE SQ SCH ×2 (05:19→17:12)
[2020-03-17] MEDS: GLUCERNA 1.2 1000ML LIQUID GT PRN (05:20)
[2020-03-17 07:40] VITALS: BP 130/77
[2020-03-17] MEDS: DOCUSATE SODIUM 100 MG/10 ML LIQUID UDC GT SCH ×2 (09:24→21:23)
[2020-03-17] MEDS: ACIDOPHILUS/BULGARICUS CHEW TAB GT SCH ×2 (09:24→21:23)
[2020-03-17] MEDS: POTASSIUM CHLORIDE 20 MEQ POWDER PACKET GT SCH (09:24)
[2020-03-17] MEDS: BISACODYL 10 MG SUPP.RECT RC SCH (09:25)
[2020-03-17] MEDS: COD LIVER OIL/ZINC OXIDE OINT 113 GM TUBE TOP SCH ×4 (09:25→21:25)
--- NOTE | 2020-03-17 11:07 | NUR ---
WOUND CARE CONSULT: PT SEEN FOR INCONTINENCE ASSOCIATED SKIN DAMAGE TO RT BUTTOCK. CONCUR WITH CURRENT TREATMENT OF DESITIN AND COVER WITH FOAM DRESSING. DISCUSSED SKIN PROTECTION WITH NURSING STAFF. WILL SEE PRN. PATEL IN AGREEMENT WITH PLAN OF CARE.
[2020-03-17] MEDS: HYDROGEN PEROXIDE 3% 118 ML BOTTLE TP SCH ×2 (12:48→21:58)
--- NOTE | 2020-03-17 14:19 | NUR ---
Called daughter Mana to notified covid19 test will be done, unable to leave message (mail box is full).
[2020-03-17 20:06] VITALS: BP 126/68
[2020-03-17] MEDS: ATORVASTATIN 20 MG TABLET PO SCH (21:23)
[2020-03-17] MEDS: FERROUS SULFATE 330 MG/7.5 ML UDC- FOR SA ONLY GT SCH (21:23)
[2020-03-18] MEDS: REFRESH EYE RIGHTEYE SCH ×6 (00:49→20:39)
[2020-03-18] MEDS: POLYVINYL ALCOHOL OPHT DROPS 15 ML BOTTLE EACHEYE SCH ×6 (00:49→20:37)
[2020-03-18] MEDS: LEVOTHYROXINE SODIUM 50 MCG TABLET GT SCH (05:41)
[2020-03-18] MEDS: OMEPRAZOLE 20 MG CAPSULE.DR GT SCH (05:41)
[2020-03-18] MEDS: BLOOD SUGAR DIAGNOSTIC 1 EACH STRIP VI SCH ×3 (05:41→22:27)
[2020-03-18] MEDS: OMEGA-3 FATTY ACIDS/FISH OIL CAPSULE GT SCH ×2 (05:41→17:11)
[2020-03-18] MEDS: INSULIN GLARGINE,HUM 300 UNITS/3 ML CARTRIDGE SQ SCH ×2 (05:42→17:11)
[2020-03-18 07:24] VITALS: BP 149/83
[2020-03-18] MEDS: HYDROGEN PEROXIDE 3% 118 ML BOTTLE TP SCH ×2 (08:15→21:10)
[2020-03-18] MEDS: COD LIVER OIL/ZINC OXIDE OINT 113 GM TUBE TOP SCH ×4 (08:59→20:39)
[2020-03-18] MEDS: POTASSIUM CHLORIDE 20 MEQ POWDER PACKET GT SCH (08:59)
[2020-03-18] MEDS: ACIDOPHILUS/BULGARICUS CHEW TAB GT SCH ×2 (08:59→20:39)
[2020-03-18] MEDS: DOCUSATE SODIUM 100 MG/10 ML LIQUID UDC GT SCH ×2 (08:59→20:37)
[2020-03-18] MEDS: INSULIN REGULAR, HUMAN 300 UNIT/3 ML VIAL SQ PRN ×2 (14:17→22:31)
[2020-03-18 19:59] VITALS: BP 117/70
[2020-03-18] MEDS: FERROUS SULFATE 330 MG/7.5 ML UDC- FOR SA ONLY GT SCH (20:39)
[2020-03-18] MEDS: ATORVASTATIN 20 MG TABLET PO SCH (20:39)
[2020-03-19] MEDS: POLYVINYL ALCOHOL OPHT DROPS 15 ML BOTTLE EACHEYE SCH ×6 (00:13→20:00)
[2020-03-19] MEDS: REFRESH EYE RIGHTEYE SCH ×6 (01:00→21:04)
[2020-03-19] MEDS: GLUCERNA 1.2 1000ML LIQUID GT PRN (03:19)
[2020-03-19] MEDS: BLOOD SUGAR DIAGNOSTIC 1 EACH STRIP VI SCH ×3 (05:29→22:32)
[2020-03-19] MEDS: LEVOTHYROXINE SODIUM 50 MCG TABLET GT SCH (05:29)
[2020-03-19] MEDS: OMEPRAZOLE 20 MG CAPSULE.DR GT SCH (05:29)
[2020-03-19] MEDS: OMEGA-3 FATTY ACIDS/FISH OIL CAPSULE GT SCH ×2 (05:29→17:03)
[2020-03-19] MEDS: INSULIN GLARGINE,HUM 300 UNITS/3 ML CARTRIDGE SQ SCH ×2 (05:30→17:04)
[2020-03-19] MEDS: INSULIN REGULAR, HUMAN 300 UNIT/3 ML VIAL SQ PRN ×3 (05:32→22:34)
[2020-03-19 07:29] VITALS: BP 146/87
[2020-03-19] MEDS: POTASSIUM CHLORIDE 20 MEQ POWDER PACKET GT SCH (08:56)
[2020-03-19] MEDS: ACIDOPHILUS/BULGARICUS CHEW TAB GT SCH ×2 (08:56→21:03)
[2020-03-19] MEDS: DOCUSATE SODIUM 100 MG/10 ML LIQUID UDC GT SCH ×2 (08:56→21:01)
[2020-03-19] MEDS: BISACODYL 10 MG SUPP.RECT RC SCH (08:56)
[2020-03-19] MEDS: COD LIVER OIL/ZINC OXIDE OINT 113 GM TUBE TOP SCH ×4 (08:57→21:04)
[2020-03-19] MEDS: HYDROGEN PEROXIDE 3% 118 ML BOTTLE TP SCH ×2 (09:00→21:07)
[2020-03-19 20:06] VITALS: BP 125/72
[2020-03-19] MEDS: FERROUS SULFATE 330 MG/7.5 ML UDC- FOR SA ONLY GT SCH (21:01)
[2020-03-19] MEDS: ATORVASTATIN 20 MG TABLET PO SCH (21:03)
[2020-03-20] MEDS: REFRESH EYE RIGHTEYE SCH ×6 (01:02→21:19)
[2020-03-20] MEDS: GLUCERNA 1.2 1000ML LIQUID GT PRN ×2 (01:03→22:27)
[2020-03-20] MEDS: POLYVINYL ALCOHOL OPHT DROPS 15 ML BOTTLE EACHEYE SCH ×6 (04:20→20:08)
[2020-03-20] MEDS: OMEPRAZOLE 20 MG CAPSULE.DR GT SCH (05:51)
[2020-03-20] MEDS: LEVOTHYROXINE SODIUM 50 MCG TABLET GT SCH (05:51)
[2020-03-20] MEDS: OMEGA-3 FATTY ACIDS/FISH OIL CAPSULE GT SCH ×2 (05:51→17:04)
[2020-03-20] MEDS: BLOOD SUGAR DIAGNOSTIC 1 EACH STRIP VI SCH ×3 (05:53→22:26)
[2020-03-20] MEDS: INSULIN GLARGINE,HUM 300 UNITS/3 ML CARTRIDGE SQ SCH ×2 (05:53→17:09)
[2020-03-20] MEDS: INSULIN REGULAR, HUMAN 300 UNIT/3 ML VIAL SQ PRN ×3 (05:54→22:30)
[2020-03-20] MEDS: HYDROGEN PEROXIDE 3% 118 ML BOTTLE TP SCH ×2 (07:20→21:21)
[2020-03-20 07:35] VITALS: BP 120/79
[2020-03-20] MEDS: ACIDOPHILUS/BULGARICUS CHEW TAB GT SCH ×2 (09:01→21:14)
[2020-03-20] MEDS: POTASSIUM CHLORIDE 20 MEQ POWDER PACKET GT SCH (09:01)
[2020-03-20] MEDS: DOCUSATE SODIUM 100 MG/10 ML LIQUID UDC GT SCH ×2 (09:01→21:14)
[2020-03-20] MEDS: COD LIVER OIL/ZINC OXIDE OINT 113 GM TUBE TOP SCH ×4 (09:01→21:20)
--- NOTE | 2020-03-20 16:52 | NUR ---
PT'S DTRSarah DOMINIQUE WAS CALLED AND NOTIFIED THAT LATEST TEST FOR COVID 19 WAS NEGATIVE (D/T MESSAGE WAS LEFT YESTERDAY)
[2020-03-20] MEDS: FERROUS SULFATE 330 MG/7.5 ML UDC- FOR SA ONLY GT SCH (21:14)
[2020-03-20] MEDS: ATORVASTATIN 20 MG TABLET PO SCH (21:14)
[2020-03-20 22:43] VITALS: BP 115/70
[2020-03-21] MEDS: REFRESH EYE RIGHTEYE SCH ×6 (01:00→21:06)
[2020-03-21] MEDS: POLYVINYL ALCOHOL OPHT DROPS 15 ML BOTTLE EACHEYE SCH ×7 (03:52→23:11)
[2020-03-21] MEDS: BLOOD SUGAR DIAGNOSTIC 1 EACH STRIP VI SCH ×3 (05:33→21:18)
[2020-03-21] MEDS: OMEPRAZOLE 20 MG CAPSULE.DR GT SCH (05:33)
[2020-03-21] MEDS: OMEGA-3 FATTY ACIDS/FISH OIL CAPSULE GT SCH ×2 (05:33→18:17)
[2020-03-21] MEDS: LEVOTHYROXINE SODIUM 50 MCG TABLET GT SCH (05:33)
[2020-03-21] MEDS: INSULIN GLARGINE,HUM 300 UNITS/3 ML CARTRIDGE SQ SCH ×2 (05:35→18:18)
[2020-03-21] MEDS: INSULIN REGULAR, HUMAN 300 UNIT/3 ML VIAL SQ PRN ×3 (05:36→21:19)
[2020-03-21 07:29] VITALS: BP 117/74
[2020-03-21] MEDS: DOCUSATE SODIUM 100 MG/10 ML LIQUID UDC GT SCH ×2 (08:17→21:06)
[2020-03-21] MEDS: COD LIVER OIL/ZINC OXIDE OINT 113 GM TUBE TOP SCH ×4 (08:17→21:06)
[2020-03-21] MEDS: BISACODYL 10 MG SUPP.RECT RC SCH (08:17)
[2020-03-21] MEDS: ACIDOPHILUS/BULGARICUS CHEW TAB GT SCH ×2 (08:17→21:06)
[2020-03-21] MEDS: POTASSIUM CHLORIDE 20 MEQ POWDER PACKET GT SCH (08:17)
[2020-03-21] MEDS: HYDROGEN PEROXIDE 3% 118 ML BOTTLE TP SCH ×2 (08:50→21:10)
[2020-03-21] MEDS: ATORVASTATIN 20 MG TABLET PO SCH (21:06)
[2020-03-21] MEDS: FERROUS SULFATE 330 MG/7.5 ML UDC- FOR SA ONLY GT SCH (21:06)
[2020-03-21] MEDS: GLUCERNA 1.2 1000ML LIQUID GT PRN (21:16)
[2020-03-21 22:08] VITALS: BP 109/76
--- NOTE | 2020-03-22 00:15 | NUR ---
For COVID-19 testing as per [facility] requirement.
[2020-03-22] MEDS: REFRESH EYE RIGHTEYE SCH ×6 (00:41→20:57)
--- NOTE | 2020-03-22 02:00 | NUR ---
Noted with left hand blistery rashes, no bleeding or skin breakdown noted. Cleansed and will start treatment with hydrocortisone 1% cream and leave open to air every shift X 7 days, will continue monitor.
[2020-03-22] MEDS: POLYVINYL ALCOHOL OPHT DROPS 15 ML BOTTLE EACHEYE SCH ×6 (03:35→23:04)
[2020-03-22] MEDS: INSULIN REGULAR, HUMAN 300 UNIT/3 ML VIAL SQ PRN ×3 (05:22→21:24)
[2020-03-22] MEDS: BLOOD SUGAR DIAGNOSTIC 1 EACH STRIP VI SCH ×3 (05:23→21:25)
[2020-03-22] MEDS: LEVOTHYROXINE SODIUM 50 MCG TABLET GT SCH (05:23)
[2020-03-22] MEDS: OMEPRAZOLE 20 MG CAPSULE.DR GT SCH (05:23)
[2020-03-22] MEDS: INSULIN GLARGINE,HUM 300 UNITS/3 ML CARTRIDGE SQ SCH ×2 (05:23→17:03)
[2020-03-22] MEDS: OMEGA-3 FATTY ACIDS/FISH OIL CAPSULE GT SCH ×2 (05:23→17:01)
[2020-03-22 07:31] VITALS: BP 121/90
[2020-03-22] MEDS: COD LIVER OIL/ZINC OXIDE OINT 113 GM TUBE TOP SCH ×4 (08:36→20:57)
[2020-03-22] MEDS: ACIDOPHILUS/BULGARICUS CHEW TAB GT SCH ×2 (08:36→20:57)
[2020-03-22] MEDS: HYDROCORTISONE 1% CREAM 30 GM TUBE TP SCH ×2 (08:36→20:57)
[2020-03-22] MEDS: POTASSIUM CHLORIDE 20 MEQ POWDER PACKET GT SCH (08:36)
[2020-03-22] MEDS: DOCUSATE SODIUM 100 MG/10 ML LIQUID UDC GT SCH ×2 (08:36→20:57)
[2020-03-22] MEDS: HYDROGEN PEROXIDE 3% 118 ML BOTTLE TP SCH ×2 (08:57→20:50)
--- NOTE | 2020-03-22 12:29 | NUR ---
PT'S DTR. TRIP AWARE OF COVID 19 TEST FOR TODAY AND IN AGREEMENT.
[2020-03-22] MEDS: FERROUS SULFATE 330 MG/7.5 ML UDC- FOR SA ONLY GT SCH (20:57)
[2020-03-22] MEDS: ATORVASTATIN 20 MG TABLET PO SCH (20:57)
[2020-03-22 22:02] VITALS: BP 114/69
[2020-03-23] MEDS: REFRESH EYE RIGHTEYE SCH ×6 (00:47→21:12)
[2020-03-23] MEDS: POLYVINYL ALCOHOL OPHT DROPS 15 ML BOTTLE EACHEYE SCH ×6 (03:12→23:13)
[2020-03-23] MEDS: OMEGA-3 FATTY ACIDS/FISH OIL CAPSULE GT SCH ×2 (05:23→17:12)
[2020-03-23] MEDS: BLOOD SUGAR DIAGNOSTIC 1 EACH STRIP VI SCH ×3 (05:23→21:23)
[2020-03-23] MEDS: LEVOTHYROXINE SODIUM 50 MCG TABLET GT SCH (05:23)
[2020-03-23] MEDS: OMEPRAZOLE 20 MG CAPSULE.DR GT SCH (05:23)
[2020-03-23] MEDS: INSULIN REGULAR, HUMAN 300 UNIT/3 ML VIAL SQ PRN ×3 (05:24→21:25)
[2020-03-23] MEDS: INSULIN GLARGINE,HUM 300 UNITS/3 ML CARTRIDGE SQ SCH ×2 (05:25→17:13)
[2020-03-23 07:25] VITALS: BP 114/74
[2020-03-23] MEDS: DOCUSATE SODIUM 100 MG/10 ML LIQUID UDC GT SCH ×2 (08:19→21:12)
[2020-03-23] MEDS: ACIDOPHILUS/BULGARICUS CHEW TAB GT SCH ×2 (08:19→21:12)
[2020-03-23] MEDS: COD LIVER OIL/ZINC OXIDE OINT 113 GM TUBE TOP SCH ×4 (08:21→21:12)
[2020-03-23] MEDS: POTASSIUM CHLORIDE 20 MEQ POWDER PACKET GT SCH (08:21)
[2020-03-23] MEDS: HYDROCORTISONE 1% CREAM 30 GM TUBE TP SCH ×2 (08:21→21:12)
[2020-03-23] MEDS: BISACODYL 10 MG SUPP.RECT RC SCH (08:21)
[2020-03-23] MEDS: HYDROGEN PEROXIDE 3% 118 ML BOTTLE TP SCH ×2 (08:40→21:33)
--- NOTE | 2020-03-23 18:38 | NUR ---
PT'S DTR. TRIP WAS CALLED X 3 TIMES AND NOT PICKING UP PHONE AND VOICE MAIL FULL (TO NOTIFY HER THAT PT.IS NEGATIVE FOR COVID 19)
--- NOTE | 2020-03-23 18:40 | NUR ---
PT'S DTR. TRIP CALLED TO UNIT AND AWARE THAT PT. IS NEGATIVE FOR COVID 19 TEST.
[2020-03-23] MEDS: ATORVASTATIN 20 MG TABLET PO SCH (21:12)
[2020-03-23] MEDS: FERROUS SULFATE 330 MG/7.5 ML UDC- FOR SA ONLY GT SCH (21:12)
[2020-03-23 22:05] VITALS: BP 109/68
[2020-03-24] MEDS: REFRESH EYE RIGHTEYE SCH ×6 (00:25→21:51)
[2020-03-24] MEDS: POLYVINYL ALCOHOL OPHT DROPS 15 ML BOTTLE EACHEYE SCH ×5 (04:29→20:31)
[2020-03-24] MEDS: BLOOD SUGAR DIAGNOSTIC 1 EACH STRIP VI SCH ×3 (05:18→22:14)
[2020-03-24] MEDS: INSULIN GLARGINE,HUM 300 UNITS/3 ML CARTRIDGE SQ SCH ×2 (05:19→17:03)
[2020-03-24] MEDS: INSULIN REGULAR, HUMAN 300 UNIT/3 ML VIAL SQ PRN ×3 (05:19→22:15)
[2020-03-24] MEDS: LEVOTHYROXINE SODIUM 50 MCG TABLET GT SCH (05:20)
[2020-03-24] MEDS: OMEGA-3 FATTY ACIDS/FISH OIL CAPSULE GT SCH ×2 (05:20→17:00)
[2020-03-24] MEDS: OMEPRAZOLE 20 MG CAPSULE.DR GT SCH (05:20)
[2020-03-24 07:31] VITALS: BP 104/68
[2020-03-24] MEDS: HYDROGEN PEROXIDE 3% 118 ML BOTTLE TP SCH ×2 (07:52→21:31)
[2020-03-24] MEDS: DOCUSATE SODIUM 100 MG/10 ML LIQUID UDC GT SCH ×2 (08:30→21:51)
[2020-03-24] MEDS: ACIDOPHILUS/BULGARICUS CHEW TAB GT SCH ×2 (08:31→21:51)
[2020-03-24] MEDS: COD LIVER OIL/ZINC OXIDE OINT 113 GM TUBE TOP SCH ×4 (08:31→21:51)
[2020-03-24] MEDS: POTASSIUM CHLORIDE 20 MEQ POWDER PACKET GT SCH (08:31)
[2020-03-24] MEDS: HYDROCORTISONE 1% CREAM 30 GM TUBE TP SCH ×2 (08:32→21:52)
--- NOTE | 2020-03-24 13:46 | NUR ---
SEEN BY ANAID Maguire AND WITH NNO.
[2020-03-24 20:00] VITALS: BP 105/62
[2020-03-24] MEDS: ATORVASTATIN 20 MG TABLET PO SCH (21:51)
[2020-03-24] MEDS: FERROUS SULFATE 330 MG/7.5 ML UDC- FOR SA ONLY GT SCH (21:51)
[2020-03-25] MEDS: REFRESH EYE RIGHTEYE SCH ×6 (01:01→21:57)
[2020-03-25] MEDS: POLYVINYL ALCOHOL OPHT DROPS 15 ML BOTTLE EACHEYE SCH ×6 (03:54→20:00)
[2020-03-25] MEDS: LEVOTHYROXINE SODIUM 50 MCG TABLET GT SCH (06:47)
[2020-03-25] MEDS: BLOOD SUGAR DIAGNOSTIC 1 EACH STRIP VI SCH ×3 (06:47→22:01)
[2020-03-25] MEDS: OMEGA-3 FATTY ACIDS/FISH OIL CAPSULE GT SCH ×2 (06:47→17:01)
[2020-03-25] MEDS: OMEPRAZOLE 20 MG CAPSULE.DR GT SCH (06:47)
[2020-03-25] MEDS: INSULIN GLARGINE,HUM 300 UNITS/3 ML CARTRIDGE SQ SCH ×2 (06:53→17:02)
[2020-03-25] MEDS: INSULIN REGULAR, HUMAN 300 UNIT/3 ML VIAL SQ PRN ×3 (06:54→22:10)
[2020-03-25 07:24] VITALS: BP 111/69
[2020-03-25] MEDS: DOCUSATE SODIUM 100 MG/10 ML LIQUID UDC GT SCH ×2 (08:37→21:54)
[2020-03-25] MEDS: ACIDOPHILUS/BULGARICUS CHEW TAB GT SCH ×2 (08:37→21:55)
[2020-03-25] MEDS: COD LIVER OIL/ZINC OXIDE OINT 113 GM TUBE TOP SCH ×4 (08:38→21:57)
[2020-03-25] MEDS: POTASSIUM CHLORIDE 20 MEQ POWDER PACKET GT SCH (08:38)
[2020-03-25] MEDS: HYDROCORTISONE 1% CREAM 30 GM TUBE TP SCH ×2 (08:38→21:57)
[2020-03-25] MEDS: HYDROGEN PEROXIDE 3% 118 ML BOTTLE TP SCH ×2 (08:51→21:13)
[2020-03-25] MEDS: BISACODYL 10 MG SUPP.RECT RC SCH (09:31)
--- NOTE | 2020-03-25 14:16 | NUR ---
Seen and examined by Maira Rosario,no new orders.
[2020-03-25 20:00] VITALS: BP 111/69
[2020-03-25] MEDS: FERROUS SULFATE 330 MG/7.5 ML UDC- FOR SA ONLY GT SCH (21:55)
[2020-03-25] MEDS: ATORVASTATIN 20 MG TABLET PO SCH (21:56)
--- NOTE | 2020-03-25 22:00 | NUR ---
Nurse noted some bleeding on top of patient's nose, cleansed and initiated in- house treatment, handled very gently, will continue monitor.
[2020-03-25] MEDS: NEOMY/BACITRAC/POLYMI OINT 28.35 GM TUBE TOP SCH (23:27)
[2020-03-26] MEDS: POLYVINYL ALCOHOL OPHT DROPS 15 ML BOTTLE EACHEYE SCH ×6 (00:05→20:00)
[2020-03-26] MEDS: GLUCERNA 1.2 1000ML LIQUID GT PRN (00:15)
[2020-03-26] MEDS: REFRESH EYE RIGHTEYE SCH ×6 (01:16→21:35)
[2020-03-26] MEDS: OMEPRAZOLE 20 MG CAPSULE.DR GT SCH (06:01)
[2020-03-26] MEDS: OMEGA-3 FATTY ACIDS/FISH OIL CAPSULE GT SCH ×2 (06:01→17:15)
[2020-03-26] MEDS: LEVOTHYROXINE SODIUM 50 MCG TABLET GT SCH (06:01)
[2020-03-26] MEDS: BLOOD SUGAR DIAGNOSTIC 1 EACH STRIP VI SCH ×3 (06:02→21:37)
[2020-03-26] MEDS: INSULIN GLARGINE,HUM 300 UNITS/3 ML CARTRIDGE SQ SCH ×2 (06:02→17:16)
[2020-03-26] MEDS: INSULIN REGULAR, HUMAN 300 UNIT/3 ML VIAL SQ PRN ×3 (06:04→21:40)
[2020-03-26 07:26] VITALS: BP 112/72
[2020-03-26] MEDS: HYDROGEN PEROXIDE 3% 118 ML BOTTLE TP SCH ×2 (07:40→21:36)
[2020-03-26] MEDS: POTASSIUM CHLORIDE 20 MEQ POWDER PACKET GT SCH (08:38)
[2020-03-26] MEDS: ACIDOPHILUS/BULGARICUS CHEW TAB GT SCH ×2 (08:38→21:34)
[2020-03-26] MEDS: DOCUSATE SODIUM 100 MG/10 ML LIQUID UDC GT SCH ×2 (08:38→21:34)
[2020-03-26] MEDS: HYDROCORTISONE 1% CREAM 30 GM TUBE TP SCH ×2 (08:38→21:36)
[2020-03-26] MEDS: COD LIVER OIL/ZINC OXIDE OINT 113 GM TUBE TOP SCH ×4 (08:38→21:35)
[2020-03-26] MEDS: NEOMY/BACITRAC/POLYMI OINT 28.35 GM TUBE TOP SCH ×2 (08:38→21:35)
[2020-03-26 20:00] VITALS: BP 106/60
[2020-03-26] MEDS: FERROUS SULFATE 330 MG/7.5 ML UDC- FOR SA ONLY GT SCH (21:34)
[2020-03-26] MEDS: ATORVASTATIN 20 MG TABLET PO SCH (21:35)
[2020-03-27] MEDS: REFRESH EYE RIGHTEYE SCH ×6 (01:00→21:50)
[2020-03-27] MEDS: GLUCERNA 1.2 1000ML LIQUID GT PRN (02:00)
[2020-03-27] MEDS: POLYVINYL ALCOHOL OPHT DROPS 15 ML BOTTLE EACHEYE SCH ×6 (04:23→20:00)
[2020-03-27] MEDS: OMEGA-3 FATTY ACIDS/FISH OIL CAPSULE GT SCH ×2 (05:33→18:25)
[2020-03-27] MEDS: LEVOTHYROXINE SODIUM 50 MCG TABLET GT SCH (05:33)
[2020-03-27] MEDS: OMEPRAZOLE 20 MG CAPSULE.DR GT SCH (05:33)
[2020-03-27] MEDS: INSULIN GLARGINE,HUM 300 UNITS/3 ML CARTRIDGE SQ SCH ×2 (05:34→18:26)
[2020-03-27] MEDS: BLOOD SUGAR DIAGNOSTIC 1 EACH STRIP VI SCH ×3 (05:34→21:55)
[2020-03-27] MEDS: INSULIN REGULAR, HUMAN 300 UNIT/3 ML VIAL SQ PRN ×3 (05:36→22:00)
[2020-03-27] MEDS: HYDROGEN PEROXIDE 3% 118 ML BOTTLE TP SCH ×2 (07:18→21:34)
[2020-03-27 07:31] VITALS: BP 103/67
[2020-03-27] MEDS: POTASSIUM CHLORIDE 20 MEQ POWDER PACKET GT SCH (08:41)
[2020-03-27] MEDS: DOCUSATE SODIUM 100 MG/10 ML LIQUID UDC GT SCH ×2 (08:41→21:49)
[2020-03-27] MEDS: BISACODYL 10 MG SUPP.RECT RC SCH (08:41)
[2020-03-27] MEDS: COD LIVER OIL/ZINC OXIDE OINT 113 GM TUBE TOP SCH ×4 (08:41→21:51)
[2020-03-27] MEDS: ACIDOPHILUS/BULGARICUS CHEW TAB GT SCH ×2 (08:41→21:50)
[2020-03-27] MEDS: HYDROCORTISONE 1% CREAM 30 GM TUBE TP SCH ×2 (08:42→21:52)
[2020-03-27] MEDS: NEOMY/BACITRAC/POLYMI OINT 28.35 GM TUBE TOP SCH ×2 (08:42→21:52)
[2020-03-27 20:00] VITALS: BP 120/78
[2020-03-27] MEDS: FERROUS SULFATE 330 MG/7.5 ML UDC- FOR SA ONLY GT SCH (21:49)
[2020-03-27] MEDS: ATORVASTATIN 20 MG TABLET PO SCH (21:50)
[2020-03-28] MEDS: REFRESH EYE RIGHTEYE SCH ×6 (01:00→21:00)
[2020-03-28] MEDS: GLUCERNA 1.2 1000ML LIQUID GT PRN (01:30)
[2020-03-28] MEDS: POLYVINYL ALCOHOL OPHT DROPS 15 ML BOTTLE EACHEYE SCH ×6 (04:22→20:13)
[2020-03-28] MEDS: OMEGA-3 FATTY ACIDS/FISH OIL CAPSULE GT SCH ×2 (05:36→17:12)
[2020-03-28] MEDS: LEVOTHYROXINE SODIUM 50 MCG TABLET GT SCH (05:36)
[2020-03-28] MEDS: OMEPRAZOLE 20 MG CAPSULE.DR GT SCH (05:36)
[2020-03-28] MEDS: INSULIN GLARGINE,HUM 300 UNITS/3 ML CARTRIDGE SQ SCH ×2 (05:37→17:28)
[2020-03-28] MEDS: BLOOD SUGAR DIAGNOSTIC 1 EACH STRIP VI SCH ×3 (05:37→22:32)
[2020-03-28 07:32] VITALS: BP 131/78
[2020-03-28] MEDS: DOCUSATE SODIUM 100 MG/10 ML LIQUID UDC GT SCH ×2 (08:03→21:00)
[2020-03-28] MEDS: POTASSIUM CHLORIDE 20 MEQ POWDER PACKET GT SCH (08:03)
[2020-03-28] MEDS: NEOMY/BACITRAC/POLYMI OINT 28.35 GM TUBE TOP SCH ×2 (08:03→21:00)
[2020-03-28] MEDS: ACIDOPHILUS/BULGARICUS CHEW TAB GT SCH ×2 (08:03→21:00)
[2020-03-28] MEDS: COD LIVER OIL/ZINC OXIDE OINT 113 GM TUBE TOP SCH ×4 (08:03→21:00)
[2020-03-28] MEDS: HYDROCORTISONE 1% CREAM 30 GM TUBE TP SCH ×2 (08:04→21:00)
[2020-03-28] MEDS: HYDROGEN PEROXIDE 3% 118 ML BOTTLE TP SCH ×2 (09:28→21:37)
--- NOTE | 2020-03-28 11:11 | NUR ---
Daughter Mana notified covid10 test will be done today.
[2020-03-28] MEDS: INSULIN REGULAR, HUMAN 300 UNIT/3 ML VIAL SQ PRN (14:14)
[2020-03-28 20:00] VITALS: BP 101/60
[2020-03-28] MEDS: ATORVASTATIN 20 MG TABLET PO SCH (21:00)
[2020-03-28] MEDS: FERROUS SULFATE 330 MG/7.5 ML UDC- FOR SA ONLY GT SCH (21:00)
[2020-03-29] MEDS: POLYVINYL ALCOHOL OPHT DROPS 15 ML BOTTLE EACHEYE SCH ×6 (00:39→20:00)
[2020-03-29] MEDS: INSULIN REGULAR, HUMAN 300 UNIT/3 ML VIAL SQ PRN ×4 (00:44→21:31)
[2020-03-29] MEDS: REFRESH EYE RIGHTEYE SCH ×6 (01:30→21:25)
[2020-03-29] MEDS: BLOOD SUGAR DIAGNOSTIC 1 EACH STRIP VI SCH ×3 (05:45→21:29)
[2020-03-29] MEDS: OMEPRAZOLE 20 MG CAPSULE.DR GT SCH (05:45)
[2020-03-29] MEDS: LEVOTHYROXINE SODIUM 50 MCG TABLET GT SCH (05:45)
[2020-03-29] MEDS: OMEGA-3 FATTY ACIDS/FISH OIL CAPSULE GT SCH ×2 (05:45→17:01)
[2020-03-29] MEDS: INSULIN GLARGINE,HUM 300 UNITS/3 ML CARTRIDGE SQ SCH ×2 (05:46→17:05)
[2020-03-29] MEDS: GLUCERNA 1.2 1000ML LIQUID GT PRN (05:47)
[2020-03-29 07:47] VITALS: BP 131/85
[2020-03-29] MEDS: DOCUSATE SODIUM 100 MG/10 ML LIQUID UDC GT SCH ×2 (08:07→21:23)
[2020-03-29] MEDS: POTASSIUM CHLORIDE 20 MEQ POWDER PACKET GT SCH (08:09)
[2020-03-29] MEDS: ACIDOPHILUS/BULGARICUS CHEW TAB GT SCH ×2 (08:09→21:24)
[2020-03-29] MEDS: BISACODYL 10 MG SUPP.RECT RC SCH (08:10)
[2020-03-29] MEDS: COD LIVER OIL/ZINC OXIDE OINT 113 GM TUBE TOP SCH ×4 (08:10→21:26)
[2020-03-29] MEDS: NEOMY/BACITRAC/POLYMI OINT 28.35 GM TUBE TOP SCH ×2 (08:11→21:26)
[2020-03-29] MEDS: HYDROGEN PEROXIDE 3% 118 ML BOTTLE TP SCH ×2 (09:00→21:54)
--- NOTE | 2020-03-29 11:41 | NUR ---
Seen and examined by Dr Dickerson,remove the ingrown toenail on the L great toe,procedure tolerated well,no s/s of pain or discomfort noted.
[2020-03-29 20:26] VITALS: BP 107/63
[2020-03-29] MEDS: FERROUS SULFATE 330 MG/7.5 ML UDC- FOR SA ONLY GT SCH (21:23)
[2020-03-29] MEDS: ATORVASTATIN 20 MG TABLET PO SCH (21:25)
[2020-03-30] MEDS: POLYVINYL ALCOHOL OPHT DROPS 15 ML BOTTLE EACHEYE SCH ×6 (00:16→20:53)
[2020-03-30] MEDS: REFRESH EYE RIGHTEYE SCH ×6 (01:30→20:55)
[2020-03-30] MEDS: GLUCERNA 1.2 1000ML LIQUID GT PRN (03:00)
[2020-03-30] MEDS: OMEPRAZOLE 20 MG CAPSULE.DR GT SCH (05:37)
[2020-03-30] MEDS: LEVOTHYROXINE SODIUM 50 MCG TABLET GT SCH (05:37)
[2020-03-30] MEDS: INSULIN GLARGINE,HUM 300 UNITS/3 ML CARTRIDGE SQ SCH ×2 (05:37→17:20)
[2020-03-30] MEDS: OMEGA-3 FATTY ACIDS/FISH OIL CAPSULE GT SCH ×2 (05:37→17:18)
[2020-03-30] MEDS: BLOOD SUGAR DIAGNOSTIC 1 EACH STRIP VI SCH ×3 (05:38→22:03)
[2020-03-30] MEDS: INSULIN REGULAR, HUMAN 300 UNIT/3 ML VIAL SQ PRN ×3 (05:39→22:06)
[2020-03-30 07:30] VITALS: BP 132/80
[2020-03-30] MEDS: ACIDOPHILUS/BULGARICUS CHEW TAB GT SCH ×2 (08:33→20:54)
[2020-03-30] MEDS: DOCUSATE SODIUM 100 MG/10 ML LIQUID UDC GT SCH ×2 (08:33→20:54)
[2020-03-30] MEDS: NEOMY/BACITRAC/POLYMI OINT 28.35 GM TUBE TOP SCH ×2 (08:34→20:55)
[2020-03-30] MEDS: COD LIVER OIL/ZINC OXIDE OINT 113 GM TUBE TOP SCH ×4 (08:34→20:55)
[2020-03-30] MEDS: NEOMY/BACITRA/POLYMYXIN B OINT UD PACKET TP SCH (08:34)
[2020-03-30] MEDS: POTASSIUM CHLORIDE 20 MEQ POWDER PACKET GT SCH (08:34)
[2020-03-30] MEDS: HYDROGEN PEROXIDE 3% 118 ML BOTTLE TP SCH ×2 (09:00→21:19)
[2020-03-30 20:00] VITALS: BP 126/82
[2020-03-30] MEDS: FERROUS SULFATE 330 MG/7.5 ML UDC- FOR SA ONLY GT SCH (20:54)
[2020-03-30] MEDS: ATORVASTATIN 20 MG TABLET PO SCH (20:55)
[2020-03-31] MEDS: GLUCERNA 1.2 1000ML LIQUID GT PRN (00:28)
[2020-03-31] MEDS: POLYVINYL ALCOHOL OPHT DROPS 15 ML BOTTLE EACHEYE SCH ×6 (00:28→20:38)
[2020-03-31] MEDS: REFRESH EYE RIGHTEYE SCH ×6 (01:18→20:40)
[2020-03-31] MEDS: OMEGA-3 FATTY ACIDS/FISH OIL CAPSULE GT SCH ×2 (05:16→17:34)
[2020-03-31] MEDS: OMEPRAZOLE 20 MG CAPSULE.DR GT SCH (05:16)
[2020-03-31] MEDS: LEVOTHYROXINE SODIUM 50 MCG TABLET GT SCH (05:16)
[2020-03-31] MEDS: INSULIN GLARGINE,HUM 300 UNITS/3 ML CARTRIDGE SQ SCH ×2 (05:17→18:14)
[2020-03-31] MEDS: BLOOD SUGAR DIAGNOSTIC 1 EACH STRIP VI SCH ×3 (05:17→21:50)
[2020-03-31] MEDS: INSULIN REGULAR, HUMAN 300 UNIT/3 ML VIAL SQ PRN ×2 (05:18→21:52)
[2020-03-31 07:32] VITALS: BP 91/52
[2020-03-31] MEDS: ACIDOPHILUS/BULGARICUS CHEW TAB GT SCH ×2 (08:29→20:39)
[2020-03-31] MEDS: DOCUSATE SODIUM 100 MG/10 ML LIQUID UDC GT SCH ×2 (08:29→20:38)
[2020-03-31] MEDS: POTASSIUM CHLORIDE 20 MEQ POWDER PACKET GT SCH (08:29)
[2020-03-31] MEDS: COD LIVER OIL/ZINC OXIDE OINT 113 GM TUBE TOP SCH ×4 (08:29→20:40)
[2020-03-31] MEDS: BISACODYL 10 MG SUPP.RECT RC SCH (08:29)
[2020-03-31] MEDS: NEOMY/BACITRAC/POLYMI OINT 28.35 GM TUBE TOP SCH ×2 (08:30→20:40)
[2020-03-31] MEDS: NEOMY/BACITRA/POLYMYXIN B OINT UD PACKET TP SCH (08:30)
[2020-03-31] MEDS: HYDROGEN PEROXIDE 3% 118 ML BOTTLE TP SCH ×2 (09:11→21:15)
[2020-03-31 20:21] VITALS: BP 108/51
[2020-03-31] MEDS: FERROUS SULFATE 330 MG/7.5 ML UDC- FOR SA ONLY GT SCH (20:38)
[2020-03-31] MEDS: ATORVASTATIN 20 MG TABLET PO SCH (20:39)
[2020-04-01] MEDS: POLYVINYL ALCOHOL OPHT DROPS 15 ML BOTTLE EACHEYE SCH ×6 (00:04→20:00)
[2020-04-01] MEDS: REFRESH EYE RIGHTEYE SCH ×6 (01:12→21:46)
[2020-04-01] MEDS: GLUCERNA 1.2 1000ML LIQUID GT PRN (01:12)
[2020-04-01] MEDS: OMEPRAZOLE 20 MG CAPSULE.DR GT SCH (05:00)
[2020-04-01] MEDS: BLOOD SUGAR DIAGNOSTIC 1 EACH STRIP VI SCH ×3 (05:00→21:42)
[2020-04-01] MEDS: OMEGA-3 FATTY ACIDS/FISH OIL CAPSULE GT SCH ×2 (05:00→17:21)
[2020-04-01] MEDS: LEVOTHYROXINE SODIUM 50 MCG TABLET GT SCH (05:00)
[2020-04-01] MEDS: INSULIN REGULAR, HUMAN 300 UNIT/3 ML VIAL SQ PRN ×3 (05:04→21:50)
[2020-04-01] MEDS: INSULIN GLARGINE,HUM 300 UNITS/3 ML CARTRIDGE SQ SCH ×2 (05:05→17:31)
[2020-04-01] MEDS: HYDROGEN PEROXIDE 3% 118 ML BOTTLE TP SCH ×2 (07:10→21:00)
[2020-04-01 07:29] VITALS: BP 93/57
[2020-04-01] MEDS: DOCUSATE SODIUM 100 MG/10 ML LIQUID UDC GT SCH ×2 (08:45→21:46)
[2020-04-01] MEDS: ACIDOPHILUS/BULGARICUS CHEW TAB GT SCH ×2 (08:46→21:46)
[2020-04-01] MEDS: POTASSIUM CHLORIDE 20 MEQ POWDER PACKET GT SCH (08:46)
[2020-04-01] MEDS: COD LIVER OIL/ZINC OXIDE OINT 113 GM TUBE TOP SCH ×4 (08:52→21:47)
[2020-04-01] MEDS: NEOMY/BACITRAC/POLYMI OINT 28.35 GM TUBE TOP SCH ×2 (08:52→21:47)
[2020-04-01] MEDS: NEOMY/BACITRA/POLYMYXIN B OINT UD PACKET TP SCH (09:00)
--- NOTE | 2020-04-01 16:22 | NUR ---
INTERDISCIPLINARY PLAN OF CARE CONFERENCE was held today. Patient's daughter Mana was not available to participate in the meeting. Dr. Nolan and the Interdisciplinary team reviewed the current plan of care in detail. RN reported on the patient's medical condition, and current toe treatment. No major changes in patient's condition were reported by RN or by the other disciplines. See RN IDT conference notes. See also all other disciplines IDT notes and physician's progress notes for additional details.
--- NOTE | 2020-04-01 18:12 | NUR ---
Seen and examined by Maira Rosario,no new orders noted.
[2020-04-01 20:00] VITALS: BP 126/78
[2020-04-01] MEDS: FERROUS SULFATE 330 MG/7.5 ML UDC- FOR SA ONLY GT SCH (21:46)
[2020-04-01] MEDS: ATORVASTATIN 20 MG TABLET PO SCH (21:46)
[2020-04-02] MEDS: POLYVINYL ALCOHOL OPHT DROPS 15 ML BOTTLE EACHEYE SCH ×6 (00:30→20:00)
[2020-04-02] MEDS: GLUCERNA 1.2 1000ML LIQUID GT PRN ×3 (00:58→23:04)
[2020-04-02] MEDS: REFRESH EYE RIGHTEYE SCH ×6 (01:16→21:58)
[2020-04-02] MEDS: OMEGA-3 FATTY ACIDS/FISH OIL CAPSULE GT SCH ×2 (05:05→17:44)
[2020-04-02] MEDS: BLOOD SUGAR DIAGNOSTIC 1 EACH STRIP VI SCH ×3 (05:05→22:14)
[2020-04-02] MEDS: OMEPRAZOLE 20 MG CAPSULE.DR GT SCH (05:05)
[2020-04-02] MEDS: LEVOTHYROXINE SODIUM 50 MCG TABLET GT SCH (05:05)
[2020-04-02] MEDS: INSULIN GLARGINE,HUM 300 UNITS/3 ML CARTRIDGE SQ SCH ×2 (05:20→17:47)
[2020-04-02] MEDS: INSULIN REGULAR, HUMAN 300 UNIT/3 ML VIAL SQ PRN ×3 (05:21→22:17)
[2020-04-02 07:33] VITALS: BP 116/74
[2020-04-02] MEDS: BISACODYL 10 MG SUPP.RECT RC SCH (09:00)
[2020-04-02] MEDS: DOCUSATE SODIUM 100 MG/10 ML LIQUID UDC GT SCH ×2 (09:21→21:57)
[2020-04-02] MEDS: POTASSIUM CHLORIDE 20 MEQ POWDER PACKET GT SCH (09:23)
[2020-04-02] MEDS: ACIDOPHILUS/BULGARICUS CHEW TAB GT SCH ×2 (09:33→21:57)
[2020-04-02] MEDS: COD LIVER OIL/ZINC OXIDE OINT 113 GM TUBE TOP SCH ×4 (09:35→21:58)
[2020-04-02] MEDS: NEOMY/BACITRAC/POLYMI OINT 28.35 GM TUBE TOP SCH ×2 (09:35→21:58)
[2020-04-02] MEDS: HYDROGEN PEROXIDE 3% 118 ML BOTTLE TP SCH ×2 (09:35→21:31)
[2020-04-02] MEDS: NEOMY/BACITRA/POLYMYXIN B OINT UD PACKET TP SCH (09:36)
[2020-04-02 20:00] VITALS: BP 129/81
[2020-04-02] MEDS: FERROUS SULFATE 330 MG/7.5 ML UDC- FOR SA ONLY GT SCH (21:57)
[2020-04-02] MEDS: ATORVASTATIN 20 MG TABLET PO SCH (21:57)
[2020-04-03] MEDS: POLYVINYL ALCOHOL OPHT DROPS 15 ML BOTTLE EACHEYE SCH ×6 (00:51→20:00)
[2020-04-03] MEDS: REFRESH EYE RIGHTEYE SCH ×6 (00:51→21:00)
[2020-04-03] MEDS: LEVOTHYROXINE SODIUM 50 MCG TABLET GT SCH (05:09)
[2020-04-03] MEDS: OMEGA-3 FATTY ACIDS/FISH OIL CAPSULE GT SCH ×2 (05:09→17:17)
[2020-04-03] MEDS: OMEPRAZOLE 20 MG CAPSULE.DR GT SCH (05:09)
[2020-04-03] MEDS: BLOOD SUGAR DIAGNOSTIC 1 EACH STRIP VI SCH ×3 (05:10→22:00)
[2020-04-03] MEDS: INSULIN REGULAR, HUMAN 300 UNIT/3 ML VIAL SQ PRN ×3 (05:16→23:15)
[2020-04-03] MEDS: INSULIN GLARGINE,HUM 300 UNITS/3 ML CARTRIDGE SQ SCH ×2 (05:17→17:18)
[2020-04-03 07:49] VITALS: BP 108/73
[2020-04-03] MEDS: DOCUSATE SODIUM 100 MG/10 ML LIQUID UDC GT SCH ×2 (08:45→21:00)
[2020-04-03] MEDS: ACIDOPHILUS/BULGARICUS CHEW TAB GT SCH ×2 (08:45→21:00)
[2020-04-03] MEDS: NEOMY/BACITRAC/POLYMI OINT 28.35 GM TUBE TOP SCH ×2 (08:47→21:00)
[2020-04-03] MEDS: POTASSIUM CHLORIDE 20 MEQ POWDER PACKET GT SCH (08:47)
[2020-04-03] MEDS: COD LIVER OIL/ZINC OXIDE OINT 113 GM TUBE TOP SCH ×4 (08:47→21:00)
[2020-04-03] MEDS: NEOMY/BACITRA/POLYMYXIN B OINT UD PACKET TP SCH (08:48)
[2020-04-03] MEDS: HYDROGEN PEROXIDE 3% 118 ML BOTTLE TP SCH ×2 (09:00→21:36)
--- NOTE | 2020-04-03 12:15 | NUR ---
Spoke with Pt's daughter Mana Martinez. Verbal consent given by Mana Martinez for patient to receive COVID 19 Vaccine.
[2020-04-03 20:00] VITALS: BP 102/66
[2020-04-03] MEDS: FERROUS SULFATE 330 MG/7.5 ML UDC- FOR SA ONLY GT SCH (21:00)
[2020-04-03] MEDS: ATORVASTATIN 20 MG TABLET PO SCH (21:00)
[2020-04-03] MEDS: GLUCERNA 1.2 1000ML LIQUID GT PRN (23:02)
[2020-04-04] MEDS: REFRESH EYE RIGHTEYE SCH ×6 (01:00→20:06)
[2020-04-04] MEDS: POLYVINYL ALCOHOL OPHT DROPS 15 ML BOTTLE EACHEYE SCH ×6 (04:00→20:05)
[2020-04-04] MEDS: OMEGA-3 FATTY ACIDS/FISH OIL CAPSULE GT SCH ×2 (05:49→17:26)
[2020-04-04] MEDS: LEVOTHYROXINE SODIUM 50 MCG TABLET GT SCH (05:51)
[2020-04-04] MEDS: OMEPRAZOLE 20 MG CAPSULE.DR GT SCH (05:53)
[2020-04-04] MEDS: BLOOD SUGAR DIAGNOSTIC 1 EACH STRIP VI SCH ×3 (05:54→21:49)
[2020-04-04] MEDS: INSULIN GLARGINE,HUM 300 UNITS/3 ML CARTRIDGE SQ SCH ×2 (05:55→17:30)
[2020-04-04] MEDS: INSULIN REGULAR, HUMAN 300 UNIT/3 ML VIAL SQ PRN ×3 (05:56→21:51)
[2020-04-04 08:06] VITALS: BP 133/76
[2020-04-04] MEDS: HYDROGEN PEROXIDE 3% 118 ML BOTTLE TP SCH ×2 (09:00→21:33)
[2020-04-04] MEDS: DOCUSATE SODIUM 100 MG/10 ML LIQUID UDC GT SCH ×2 (09:27→20:06)
[2020-04-04] MEDS: ACIDOPHILUS/BULGARICUS CHEW TAB GT SCH ×2 (09:27→20:06)
[2020-04-04] MEDS: POTASSIUM CHLORIDE 20 MEQ POWDER PACKET GT SCH (09:29)
[2020-04-04] MEDS: COD LIVER OIL/ZINC OXIDE OINT 113 GM TUBE TOP SCH ×2 (09:29→20:06)
[2020-04-04] MEDS: NEOMY/BACITRA/POLYMYXIN B OINT UD PACKET TP SCH (09:29)
[2020-04-04] MEDS: NEOMY/BACITRAC/POLYMI OINT 28.35 GM TUBE TOP SCH (09:29)
[2020-04-04] MEDS: BISACODYL 10 MG SUPP.RECT RC SCH (09:29)
[2020-04-04] MEDS: GLUCERNA 1.2 1000ML LIQUID GT PRN (18:46)
[2020-04-04 20:00] VITALS: BP 135/80
[2020-04-04] MEDS: FERROUS SULFATE 330 MG/7.5 ML UDC- FOR SA ONLY GT SCH (20:06)
[2020-04-04] MEDS: ATORVASTATIN 20 MG TABLET PO SCH (20:06)
[2020-04-05] MEDS: POLYVINYL ALCOHOL OPHT DROPS 15 ML BOTTLE EACHEYE SCH ×6 (00:41→20:22)
[2020-04-05] MEDS: REFRESH EYE RIGHTEYE SCH ×6 (00:41→20:22)
[2020-04-05] MEDS: LEVOTHYROXINE SODIUM 50 MCG TABLET GT SCH (05:07)
[2020-04-05] MEDS: OMEGA-3 FATTY ACIDS/FISH OIL CAPSULE GT SCH ×2 (05:07→17:54)
[2020-04-05] MEDS: BLOOD SUGAR DIAGNOSTIC 1 EACH STRIP VI SCH ×3 (05:07→21:53)
[2020-04-05] MEDS: OMEPRAZOLE 20 MG CAPSULE.DR GT SCH (05:07)
[2020-04-05] MEDS: INSULIN GLARGINE,HUM 300 UNITS/3 ML CARTRIDGE SQ SCH ×2 (05:08→17:59)
[2020-04-05] MEDS: INSULIN REGULAR, HUMAN 300 UNIT/3 ML VIAL SQ PRN ×3 (05:09→21:55)
[2020-04-05] MEDS: HYDROGEN PEROXIDE 3% 118 ML BOTTLE TP SCH ×2 (07:15→21:08)
[2020-04-05 08:02] VITALS: BP 129/76
[2020-04-05] MEDS: DOCUSATE SODIUM 100 MG/10 ML LIQUID UDC GT SCH ×2 (09:26→20:22)
[2020-04-05] MEDS: POTASSIUM CHLORIDE 20 MEQ POWDER PACKET GT SCH (09:27)
[2020-04-05] MEDS: ACIDOPHILUS/BULGARICUS CHEW TAB GT SCH ×2 (09:28→20:22)
[2020-04-05] MEDS: COD LIVER OIL/ZINC OXIDE OINT 113 GM TUBE TOP SCH ×2 (09:29→20:22)
[2020-04-05] MEDS: NEOMY/BACITRA/POLYMYXIN B OINT UD PACKET TP SCH (09:29)
--- NOTE | 2020-04-05 15:38 | NUR ---
PT'S DTR. TRIP CRAWFORD OF NEGATIVE COVID 19 TEST FROM 04/03/20.
[2020-04-05] MEDS: ATORVASTATIN 20 MG TABLET PO SCH (20:22)
[2020-04-05] MEDS: FERROUS SULFATE 330 MG/7.5 ML UDC- FOR SA ONLY GT SCH (20:22)
[2020-04-05 21:56] VITALS: BP 121/74
[2020-04-06] MEDS: REFRESH EYE RIGHTEYE SCH ×6 (00:33→21:57)
[2020-04-06] MEDS: POLYVINYL ALCOHOL OPHT DROPS 15 ML BOTTLE EACHEYE SCH ×6 (00:33→20:25)
[2020-04-06] MEDS: OMEPRAZOLE 20 MG CAPSULE.DR GT SCH (05:44)
[2020-04-06] MEDS: BLOOD SUGAR DIAGNOSTIC 1 EACH STRIP VI SCH ×3 (05:44→22:31)
[2020-04-06] MEDS: LEVOTHYROXINE SODIUM 50 MCG TABLET GT SCH (05:44)
[2020-04-06] MEDS: OMEGA-3 FATTY ACIDS/FISH OIL CAPSULE GT SCH ×2 (05:44→18:01)
[2020-04-06] MEDS: INSULIN REGULAR, HUMAN 300 UNIT/3 ML VIAL SQ PRN ×3 (05:49→23:09)
[2020-04-06] MEDS: INSULIN GLARGINE,HUM 300 UNITS/3 ML CARTRIDGE SQ SCH ×2 (05:50→18:02)
[2020-04-06] MEDS: HYDROGEN PEROXIDE 3% 118 ML BOTTLE TP SCH ×2 (07:40→21:35)
[2020-04-06 07:44] VITALS: BP 102/70
[2020-04-06] MEDS: DOCUSATE SODIUM 100 MG/10 ML LIQUID UDC GT SCH ×2 (08:12→21:57)
[2020-04-06] MEDS: ACIDOPHILUS/BULGARICUS CHEW TAB GT SCH ×2 (08:12→21:57)
[2020-04-06] MEDS: BISACODYL 10 MG SUPP.RECT RC SCH (08:12)
[2020-04-06] MEDS: POTASSIUM CHLORIDE 20 MEQ POWDER PACKET GT SCH (08:12)
[2020-04-06] MEDS: COD LIVER OIL/ZINC OXIDE OINT 113 GM TUBE TOP SCH ×2 (08:13→21:57)
[2020-04-06] MEDS: NEOMY/BACITRA/POLYMYXIN B OINT UD PACKET TP SCH (08:13)
[2020-04-06] MEDS: FERROUS SULFATE 330 MG/7.5 ML UDC- FOR SA ONLY GT SCH (21:57)
[2020-04-06] MEDS: ATORVASTATIN 20 MG TABLET PO SCH (21:57)
[2020-04-06 22:24] VITALS: BP 119/74
[2020-04-07] MEDS: POLYVINYL ALCOHOL OPHT DROPS 15 ML BOTTLE EACHEYE SCH ×6 (00:23→20:20)
[2020-04-07] MEDS: REFRESH EYE RIGHTEYE SCH ×6 (01:13→21:00)
[2020-04-07] MEDS: LEVOTHYROXINE SODIUM 50 MCG TABLET GT SCH (05:32)
[2020-04-07] MEDS: OMEGA-3 FATTY ACIDS/FISH OIL CAPSULE GT SCH ×2 (05:32→17:19)
[2020-04-07] MEDS: OMEPRAZOLE 20 MG CAPSULE.DR GT SCH (05:32)
[2020-04-07] MEDS: BLOOD SUGAR DIAGNOSTIC 1 EACH STRIP VI SCH ×3 (05:33→22:17)
[2020-04-07] MEDS: INSULIN GLARGINE,HUM 300 UNITS/3 ML CARTRIDGE SQ SCH ×2 (05:46→17:20)
[2020-04-07] MEDS: INSULIN REGULAR, HUMAN 300 UNIT/3 ML VIAL SQ PRN ×3 (05:47→22:31)
[2020-04-07 07:31] VITALS: BP 97/60
[2020-04-07] MEDS: DOCUSATE SODIUM 100 MG/10 ML LIQUID UDC GT SCH ×2 (08:50→21:00)
[2020-04-07] MEDS: ACIDOPHILUS/BULGARICUS CHEW TAB GT SCH ×2 (08:50→21:00)
[2020-04-07] MEDS: NEOMY/BACITRA/POLYMYXIN B OINT UD PACKET TP SCH (08:52)
[2020-04-07] MEDS: COD LIVER OIL/ZINC OXIDE OINT 113 GM TUBE TOP SCH ×2 (08:52→21:00)
[2020-04-07] MEDS: POTASSIUM CHLORIDE 20 MEQ POWDER PACKET GT SCH (08:52)
[2020-04-07] MEDS: HYDROGEN PEROXIDE 3% 118 ML BOTTLE TP SCH ×2 (09:00→21:05)
--- NOTE | 2020-04-07 13:01 | NUR ---
SEEN BY ANAID Maguire AND WITH NNO.
[2020-04-07] MEDS: GLUCERNA 1.2 1000ML LIQUID GT PRN (13:27)
[2020-04-07 20:43] VITALS: BP 134/76
[2020-04-07] MEDS: FERROUS SULFATE 330 MG/7.5 ML UDC- FOR SA ONLY GT SCH (21:00)
[2020-04-07] MEDS: ATORVASTATIN 20 MG TABLET PO SCH (21:00)
[2020-04-08] MEDS: POLYVINYL ALCOHOL OPHT DROPS 15 ML BOTTLE EACHEYE SCH ×6 (00:29→20:00)
[2020-04-08] MEDS: REFRESH EYE RIGHTEYE SCH ×6 (01:16→21:44)
[2020-04-08] MEDS: LEVOTHYROXINE SODIUM 50 MCG TABLET GT SCH (05:49)
[2020-04-08] MEDS: OMEPRAZOLE 20 MG CAPSULE.DR GT SCH (05:49)
[2020-04-08] MEDS: OMEGA-3 FATTY ACIDS/FISH OIL CAPSULE GT SCH ×2 (05:49→17:00)
[2020-04-08] MEDS: INSULIN GLARGINE,HUM 300 UNITS/3 ML CARTRIDGE SQ SCH ×2 (05:50→17:03)
[2020-04-08] MEDS: INSULIN REGULAR, HUMAN 300 UNIT/3 ML VIAL SQ PRN ×3 (05:51→22:28)
[2020-04-08] MEDS: BLOOD SUGAR DIAGNOSTIC 1 EACH STRIP VI SCH ×3 (06:31→22:27)
[2020-04-08] MEDS: HYDROGEN PEROXIDE 3% 118 ML BOTTLE TP SCH ×2 (07:24→21:46)
[2020-04-08 07:32] VITALS: BP 91/58
[2020-04-08] MEDS: ACIDOPHILUS/BULGARICUS CHEW TAB GT SCH ×2 (08:53→21:44)
[2020-04-08] MEDS: DOCUSATE SODIUM 100 MG/10 ML LIQUID UDC GT SCH ×2 (08:53→21:42)
[2020-04-08] MEDS: POTASSIUM CHLORIDE 20 MEQ POWDER PACKET GT SCH (08:53)
[2020-04-08] MEDS: NEOMY/BACITRA/POLYMYXIN B OINT UD PACKET TP SCH (08:55)
[2020-04-08] MEDS: COD LIVER OIL/ZINC OXIDE OINT 113 GM TUBE TOP SCH ×2 (08:55→21:44)
[2020-04-08] MEDS: BISACODYL 10 MG SUPP.RECT RC SCH (08:55)
[2020-04-08] MEDS: GLUCERNA 1.2 1000ML LIQUID GT PRN (11:37)
--- NOTE | 2020-04-08 19:47 | NUR ---
New orders to Give COVID vaccine x 1 carried out.
[2020-04-08 20:02] VITALS: BP 130/74
[2020-04-08] MEDS: FERROUS SULFATE 330 MG/7.5 ML UDC- FOR SA ONLY GT SCH (21:43)
[2020-04-08] MEDS: ATORVASTATIN 20 MG TABLET PO SCH (21:44)
[2020-04-09] MEDS: REFRESH EYE RIGHTEYE SCH ×6 (01:02→21:00)
[2020-04-09] MEDS: POLYVINYL ALCOHOL OPHT DROPS 15 ML BOTTLE EACHEYE SCH ×6 (04:45→20:00)
[2020-04-09] MEDS: OMEGA-3 FATTY ACIDS/FISH OIL CAPSULE GT SCH ×2 (05:03→18:20)
[2020-04-09] MEDS: INSULIN GLARGINE,HUM 300 UNITS/3 ML CARTRIDGE SQ SCH ×2 (05:03→18:43)
[2020-04-09] MEDS: LEVOTHYROXINE SODIUM 50 MCG TABLET GT SCH (05:03)
[2020-04-09] MEDS: OMEPRAZOLE 20 MG CAPSULE.DR GT SCH (05:03)
[2020-04-09] MEDS: BLOOD SUGAR DIAGNOSTIC 1 EACH STRIP VI SCH ×3 (05:04→22:39)
[2020-04-09] MEDS: INSULIN REGULAR, HUMAN 300 UNIT/3 ML VIAL SQ PRN ×3 (05:05→22:41)
[2020-04-09] MEDS: HYDROGEN PEROXIDE 3% 118 ML BOTTLE TP SCH ×2 (07:20→21:25)
[2020-04-09 07:30] VITALS: BP 136/82
[2020-04-09] MEDS: DOCUSATE SODIUM 100 MG/10 ML LIQUID UDC GT SCH ×2 (08:39→21:00)
[2020-04-09] MEDS: ACIDOPHILUS/BULGARICUS CHEW TAB GT SCH ×2 (08:39→21:00)
[2020-04-09] MEDS: POTASSIUM CHLORIDE 20 MEQ POWDER PACKET GT SCH (08:40)
[2020-04-09] MEDS: COD LIVER OIL/ZINC OXIDE OINT 113 GM TUBE TOP SCH ×2 (08:40→21:00)
[2020-04-09] MEDS: NEOMY/BACITRA/POLYMYXIN B OINT UD PACKET TP SCH (08:40)
[2020-04-09] MEDS: GLUCERNA 1.2 1000ML LIQUID GT PRN (08:44)
--- NOTE | 2020-04-09 17:00 | NUR ---
PT. HAD COVID 19 VACCINE ON RT.DELTOID AND PT'S DTR. TRIP AWARE AND NO A/R .
[2020-04-09 20:33] VITALS: BP 151/84
[2020-04-09] MEDS: FERROUS SULFATE 330 MG/7.5 ML UDC- FOR SA ONLY GT SCH (21:00)
[2020-04-09] MEDS: ATORVASTATIN 20 MG TABLET PO SCH (21:00)
[~2020-04-10] VITALS: Ht 170.2 cm; Wt 76.7 kg
[2020-04-10] MEDS: REFRESH EYE RIGHTEYE SCH ×6 (01:20→21:55)
[2020-04-10] MEDS: POLYVINYL ALCOHOL OPHT DROPS 15 ML BOTTLE EACHEYE SCH ×6 (04:19→20:00)
[2020-04-10] MEDS: OMEGA-3 FATTY ACIDS/FISH OIL CAPSULE GT SCH ×2 (06:10→17:24)
[2020-04-10] MEDS: LEVOTHYROXINE SODIUM 50 MCG TABLET GT SCH (06:10)
[2020-04-10] MEDS: OMEPRAZOLE 20 MG CAPSULE.DR GT SCH (06:10)
[2020-04-10] MEDS: INSULIN GLARGINE,HUM 300 UNITS/3 ML CARTRIDGE SQ SCH ×2 (06:11→17:24)
[2020-04-10] MEDS: BLOOD SUGAR DIAGNOSTIC 1 EACH STRIP VI SCH ×5 (06:16→22:00)
[2020-04-10] MEDS: INSULIN REGULAR, HUMAN 300 UNIT/3 ML VIAL SQ PRN ×3 (06:17→22:04)
[2020-04-10 08:27] VITALS: BP 108/74
[2020-04-10] MEDS: HYDROGEN PEROXIDE 3% 118 ML BOTTLE TP SCH ×2 (09:25→20:33)
[2020-04-10] MEDS: DOCUSATE SODIUM 100 MG/10 ML LIQUID UDC GT SCH ×2 (09:45→21:53)
[2020-04-10] MEDS: ACIDOPHILUS/BULGARICUS CHEW TAB GT SCH ×2 (09:46→21:54)
[2020-04-10] MEDS: COD LIVER OIL/ZINC OXIDE OINT 113 GM TUBE TOP SCH ×2 (09:46→21:55)
[2020-04-10] MEDS: POTASSIUM CHLORIDE 20 MEQ POWDER PACKET GT SCH (09:46)
[2020-04-10] MEDS: BISACODYL 10 MG SUPP.RECT RC SCH (09:46)
[2020-04-10] MEDS: NEOMY/BACITRA/POLYMYXIN B OINT UD PACKET TP SCH (09:47)
--- NOTE | 2020-04-10 18:31 | NUR ---
No a/r noted from covid19 vaccine.
[2020-04-10] MEDS: FERROUS SULFATE 330 MG/7.5 ML UDC- FOR SA ONLY GT SCH (21:53)
[2020-04-10] MEDS: ATORVASTATIN 20 MG TABLET PO SCH (21:54)
[2020-04-10 22:52] VITALS: BP 144/83
--- NOTE | 2020-04-10 23:29 | NUR ---
Patient is afebrile, no signs of any adverse reactions noted from the COVID-19 vaccine.
[~2020-04-10 23:59] MED LIST changes: +ACETAMINOPHEN 650 MG/20 ML UDC- SA PATIENTS-FEVER ONLY GT PRN; +ACETAMINOPHEN 650 MG/20 ML UDC- SA PATIENTS-PAIN ONLY GT PRN; +ATORVASTATIN 10 MG TABLET ONE; +COD LIVER OIL/ZINC OXIDE OINT 113 GM TUBE TOP PRN; +COVID-19 VACC,MRNA(MODERNA)/PF 100 MCG/0.5 ML VIAL IM ONE; +DEXTROSE 50% 50 ML DISP.SYRIN IV PRN; +FUROSEMIDE 20 MG TABLET GT ONE; +INFLUENZA VACCINE 2020-2021 0.5 ML DISP.SYRIN IM ONE; +LEVOTHYROXINE SODIUM 50 MCG TABLET ONE; +LEVOTHYROXINE SODIUM 50 MCG TABLET PO ONE; +MAGNESIUM HYDROXIDE 30 ML LIQUID UDC GT PRN; +OMEGA-3 FATTY ACIDS/FISH OIL CAPSULE GT SCH; +PANTOPRAZOLE ORAL SUSPENSION 40 MG SUSPDR.PKT ONE; +POTASSIUM CHLORIDE 20 MEQ POWDER PACKET GT ONE; +REFRESH GEL RIGHTEYE SCH; +TUBERCULIN,PURIF.PROT.DERIV. 5 TU/0.1 ML TEST ID ONE
[2020-04-11] MEDS: REFRESH EYE RIGHTEYE SCH ×6 (01:13→21:00)
[2020-04-11] MEDS: GLUCERNA 1.2 1000ML LIQUID GT PRN ×2 (01:13→22:41)
[2020-04-11] MEDS: POLYVINYL ALCOHOL OPHT DROPS 15 ML BOTTLE EACHEYE SCH ×6 (04:00→20:00)
[2020-04-11] MEDS: OMEPRAZOLE 20 MG CAPSULE.DR GT SCH (06:00)
[2020-04-11] MEDS: OMEGA-3 FATTY ACIDS/FISH OIL CAPSULE GT SCH ×2 (06:00→17:22)
[2020-04-11] MEDS: LEVOTHYROXINE SODIUM 50 MCG TABLET GT SCH (06:01)
[2020-04-11] MEDS: INSULIN GLARGINE,HUM 300 UNITS/3 ML CARTRIDGE SQ SCH ×2 (06:21→17:23)
[2020-04-11] MEDS: BLOOD SUGAR DIAGNOSTIC 1 EACH STRIP VI SCH ×3 (06:24→22:37)
[2020-04-11] MEDS: HYDROGEN PEROXIDE 3% 118 ML BOTTLE TP SCH ×2 (07:26→21:15)
[2020-04-11 07:46] VITALS: BP 118/72
[2020-04-11] MEDS: DOCUSATE SODIUM 100 MG/10 ML LIQUID UDC GT SCH ×2 (08:30→21:00)
[2020-04-11] MEDS: ACIDOPHILUS/BULGARICUS CHEW TAB GT SCH ×2 (08:30→21:00)
[2020-04-11] MEDS: COD LIVER OIL/ZINC OXIDE OINT 113 GM TUBE TOP SCH ×2 (08:30→21:00)
[2020-04-11] MEDS: POTASSIUM CHLORIDE 20 MEQ POWDER PACKET GT SCH (08:30)
[2020-04-11] MEDS: NEOMY/BACITRA/POLYMYXIN B OINT UD PACKET TP SCH (08:31)
[2020-04-11] MEDS: INSULIN REGULAR, HUMAN 300 UNIT/3 ML VIAL SQ PRN ×2 (14:11→22:47)
--- NOTE | 2020-04-11 17:50 | NUR ---
No a/r noted from covid19 vaccine.
[2020-04-11 20:30] VITALS: BP 128/65
[2020-04-11 20:31] VITALS: BP 122/71
[2020-04-11] MEDS: ATORVASTATIN 20 MG TABLET PO SCH (21:00)
[2020-04-11] MEDS: FERROUS SULFATE 330 MG/7.5 ML UDC- FOR SA ONLY GT SCH (21:00)
--- NOTE | 2020-04-11 22:14 | NUR ---
Patient is afebrile, no signs of adverse effects from Covid-19 vaccine.
[2020-04-11] MEDS: COD LIVER OIL/ZINC OXIDE OINT 113 GM TUBE TOP PRN (22:47)
[2020-04-12] MEDS: REFRESH EYE RIGHTEYE SCH ×6 (01:14→20:58)
[2020-04-12] MEDS: POLYVINYL ALCOHOL OPHT DROPS 15 ML BOTTLE EACHEYE SCH ×6 (04:00→20:57)
[2020-04-12] MEDS: OMEPRAZOLE 20 MG CAPSULE.DR GT SCH (05:19)
[2020-04-12] MEDS: OMEGA-3 FATTY ACIDS/FISH OIL CAPSULE GT SCH ×2 (05:19→17:06)
[2020-04-12] MEDS: BLOOD SUGAR DIAGNOSTIC 1 EACH STRIP VI SCH ×3 (05:20→21:01)
[2020-04-12] MEDS: LEVOTHYROXINE SODIUM 50 MCG TABLET GT SCH (05:20)
[2020-04-12] MEDS: INSULIN GLARGINE,HUM 300 UNITS/3 ML CARTRIDGE SQ SCH ×2 (05:21→17:06)
[2020-04-12] MEDS: INSULIN REGULAR, HUMAN 300 UNIT/3 ML VIAL SQ PRN ×3 (05:26→21:08)
[2020-04-12 07:40] VITALS: BP 118/72
[2020-04-12] MEDS: DOCUSATE SODIUM 100 MG/10 ML LIQUID UDC GT SCH ×2 (08:52→20:57)
[2020-04-12] MEDS: POTASSIUM CHLORIDE 20 MEQ POWDER PACKET GT SCH (08:53)
[2020-04-12] MEDS: ACIDOPHILUS/BULGARICUS CHEW TAB GT SCH ×2 (08:53→20:58)
[2020-04-12] MEDS: NEOMY/BACITRA/POLYMYXIN B OINT UD PACKET TP SCH (08:55)
[2020-04-12] MEDS: BISACODYL 10 MG SUPP.RECT RC SCH (08:55)
[2020-04-12] MEDS: COD LIVER OIL/ZINC OXIDE OINT 113 GM TUBE TOP SCH ×2 (08:55→20:58)
[2020-04-12] MEDS: HYDROGEN PEROXIDE 3% 118 ML BOTTLE TP SCH ×2 (09:00→20:39)
--- NOTE | 2020-04-12 18:15 | NUR ---
V/S STABLE, NO A/R NOTED AT THIS TIME. WILL CONTINUE MONITORING.
[2020-04-12 20:04] VITALS: BP 117/67
[2020-04-12] MEDS: FERROUS SULFATE 330 MG/7.5 ML UDC- FOR SA ONLY GT SCH (20:57)
[2020-04-12] MEDS: ATORVASTATIN 20 MG TABLET PO SCH (20:58)
[2020-04-13] MEDS: REFRESH EYE RIGHTEYE SCH ×6 (01:57→21:41)
[2020-04-13] MEDS: POLYVINYL ALCOHOL OPHT DROPS 15 ML BOTTLE EACHEYE SCH ×6 (04:00→20:00)
[2020-04-13] MEDS: LEVOTHYROXINE SODIUM 50 MCG TABLET GT SCH (05:16)
[2020-04-13] MEDS: OMEGA-3 FATTY ACIDS/FISH OIL CAPSULE GT SCH ×2 (05:16→17:21)
[2020-04-13] MEDS: OMEPRAZOLE 20 MG CAPSULE.DR GT SCH (05:16)
[2020-04-13] MEDS: BLOOD SUGAR DIAGNOSTIC 1 EACH STRIP VI SCH ×3 (05:17→21:47)
[2020-04-13] MEDS: INSULIN GLARGINE,HUM 300 UNITS/3 ML CARTRIDGE SQ SCH ×2 (05:18→17:21)
[2020-04-13] MEDS: INSULIN REGULAR, HUMAN 300 UNIT/3 ML VIAL SQ PRN ×3 (05:19→21:48)
[2020-04-13 07:40] VITALS: BP 127/79
[2020-04-13] MEDS: HYDROGEN PEROXIDE 3% 118 ML BOTTLE TP SCH ×2 (09:00→20:38)
[2020-04-13] MEDS: DOCUSATE SODIUM 100 MG/10 ML LIQUID UDC GT SCH ×2 (09:18→21:39)
[2020-04-13] MEDS: COD LIVER OIL/ZINC OXIDE OINT 113 GM TUBE TOP SCH ×2 (09:18→21:40)
[2020-04-13] MEDS: POTASSIUM CHLORIDE 20 MEQ POWDER PACKET GT SCH (09:18)
[2020-04-13] MEDS: ACIDOPHILUS/BULGARICUS CHEW TAB GT SCH ×2 (09:18→21:39)
[2020-04-13 20:01] VITALS: BP 139/80
[2020-04-13] MEDS: FERROUS SULFATE 330 MG/7.5 ML UDC- FOR SA ONLY GT SCH (21:39)
[2020-04-13] MEDS: ATORVASTATIN 20 MG TABLET PO SCH (21:39)
[2020-04-14] MEDS: POLYVINYL ALCOHOL OPHT DROPS 15 ML BOTTLE EACHEYE SCH ×2 (00:42→04:08)
[2020-04-14] MEDS: GLUCERNA 1.2 1000ML LIQUID GT PRN (00:42)
[2020-04-14] MEDS: REFRESH EYE RIGHTEYE SCH ×2 (01:00→05:38)
[2020-04-14] MEDS: BLOOD SUGAR DIAGNOSTIC 1 EACH STRIP VI SCH (05:32)
[2020-04-14] MEDS: INSULIN GLARGINE,HUM 300 UNITS/3 ML CARTRIDGE SQ SCH (05:33)
[2020-04-14] MEDS: INSULIN REGULAR, HUMAN 300 UNIT/3 ML VIAL SQ PRN (05:34)
[2020-04-14] MEDS: LEVOTHYROXINE SODIUM 50 MCG TABLET GT SCH (05:38)
[2020-04-14] MEDS: OMEPRAZOLE 20 MG CAPSULE.DR GT SCH (05:38)
[2020-04-14] MEDS: OMEGA-3 FATTY ACIDS/FISH OIL CAPSULE GT SCH (05:38)
== END | disposition still patient (30) | DRG 207 ==
LOC: SA 04-11
PROVIDERS: ADMIT Internal Medicine; ATTEND Internal Medicine
PROC: 5A1955Z Respiratory Ventilation, Greater than 96 Consecutive Hours (ICD-10-PCS; principal; 2019-04-11)
PROC: 0D20XUZ Change Feeding Device in Upper Intestinal Tract, External Approach (ICD-10-PCS; 2019-05-02)
DX: J96.11 Chronic respiratory failure with hypoxia (principal); G82.50 Quadriplegia, unspecified; G93.1 Anoxic brain damage, not elsewhere classified; R40.3 Persistent vegetative state; Z99.11 Dependence on respirator [ventilator] status; I69.351 Hemiplegia and hemiparesis following cerebral infarction affecting right dominant side; R47.01 Aphasia; E46 Unspecified protein-calorie malnutrition; L10.9 Pemphigus, unspecified; J98.11 Atelectasis; R13.10 Dysphagia, unspecified; I50.9 Heart failure, unspecified; Z93.0 Tracheostomy status; I25.10 Atherosclerotic heart disease of native coronary artery without angina pectoris; Z93.1 Gastrostomy status; Z79.4 Long term (current) use of insulin; E78.5 Hyperlipidemia, unspecified; D63.8 Anemia in other chronic diseases classified elsewhere; E03.9 Hypothyroidism, unspecified; E11.65 Type 2 diabetes mellitus with hyperglycemia; G40.909 Epilepsy, unspecified, not intractable, without status epilepticus; Z87.440 Personal history of urinary (tract) infections; I11.0 Hypertensive heart disease with heart failure; Z86.14 Personal history of Methicillin resistant Staphylococcus aureus infection; Z87.01 Personal history of pneumonia (recurrent); R94.6 Abnormal results of thyroid function studies; Z79.01 Long term (current) use of anticoagulants; D64.9 Anemia, unspecified; E87.6 Hypokalemia; S90.822A Blister (nonthermal), left foot, initial encounter; I70.0 Atherosclerosis of aorta; B96.4 Proteus (mirabilis) (morganii) as the cause of diseases classified elsewhere; L73.9 Follicular disorder, unspecified; S90.821A Blister (nonthermal), right foot, initial encounter; X58.XXXA Exposure to other specified factors, initial encounter; Y93.9 Activity, unspecified; Y92.230 Patient room in hospital as the place of occurrence of the external cause
CPT/HCPCS: 36415; 71045; 73120; 83550; 83735; 84100; 84443; 85025; 86580; 87040; 87077; 87086; 90686; 94002; 94003; 94640; A4663; C1758; G0008; J0696; J1815; J3590; U0003

== ENCOUNTER 2021-04-11 | Inpatient (IN) | payer MEDICARE, MEDICAID ==
[~2021-04-11] VITALS: Ht 170.2 cm; Wt 79.4 kg
[~2021-04-11] MED LIST changes: -ACETAMINOPHEN 650 MG/20 ML UDC- SA PATIENTS-FEVER ONLY GT PRN; -ACETAMINOPHEN 650 MG/20 ML UDC- SA PATIENTS-PAIN ONLY GT PRN; -ATORVASTATIN 10 MG TABLET ONE; -COD LIVER OIL/ZINC OXIDE OINT 113 GM TUBE TOP PRN; -COVID-19 VACC,MRNA(MODERNA)/PF 100 MCG/0.5 ML VIAL IM ONE; -DEXTROSE 50% 50 ML DISP.SYRIN IV PRN; -FUROSEMIDE 20 MG TABLET GT ONE; -INFLUENZA VACCINE 2020-2021 0.5 ML DISP.SYRIN IM ONE; -LEVOTHYROXINE SODIUM 50 MCG TABLET ONE; -LEVOTHYROXINE SODIUM 50 MCG TABLET PO ONE; -MAGNESIUM HYDROXIDE 30 ML LIQUID UDC GT PRN; -OMEGA-3 FATTY ACIDS/FISH OIL CAPSULE GT SCH; -PANTOPRAZOLE ORAL SUSPENSION 40 MG SUSPDR.PKT ONE; -POTASSIUM CHLORIDE 20 MEQ POWDER PACKET GT ONE; -REFRESH GEL RIGHTEYE SCH; -TUBERCULIN,PURIF.PROT.DERIV. 5 TU/0.1 ML TEST ID ONE
[2021-04-13] MEDS ORDERED: COD LIVER OIL/ZINC OXIDE OINT 113 GM TUBE TOP PRN (09:45)
[2021-04-13] MEDS ORDERED: ACETAMINOPHEN 650 MG/20 ML UDC- SA PATIENTS-FEVER ONLY GT PRN (09:45)
[2021-04-13] MEDS ORDERED: ACETAMINOPHEN 650 MG/20 ML UDC- SA PATIENTS-PAIN ONLY GT PRN (09:45)
[2021-04-13] MEDS ORDERED: DEXTROSE 50% 50 ML DISP.SYRIN IV PRN (09:45)
[2021-04-13] MEDS ORDERED: IPRATROPIUM BROMIDE 0.5 MG/2.5 ML NEBU NEB PRN (09:45)
[2021-04-13] MEDS ORDERED: MAGNESIUM HYDROXIDE 30 ML LIQUID UDC GT PRN (09:45)
[2021-04-13] MEDS ORDERED: HYDROGEN PEROXIDE 3% 118 ML BOTTLE TP PRN (09:45)
[2021-04-13] MEDS ORDERED: ALBUTEROL SULFATE 2.5 MG/3 ML NEBU NEB PRN (09:45)
[2021-04-13] MEDS: POLYVINYL ALCOHOL OPHT DROPS 15 ML BOTTLE EACHEYE SCH ×3 (12:00→20:00)
--- NOTE | 2021-04-13 12:35 | NUR ---
Metalsmith Octavia notified of today's weight 175 lb, patient gained 10 lb in one moth.
[2021-04-13] MEDS: REFRESH EYE RIGHTEYE SCH ×3 (13:00→21:00)
[2021-04-13] MEDS: BLOOD SUGAR DIAGNOSTIC 1 EACH STRIP VI SCH ×2 (14:30→22:12)
[2021-04-13] MEDS: INSULIN REGULAR, HUMAN 300 UNIT/3 ML VIAL SQ PRN (14:31)
[2021-04-13] MEDS: OMEGA-3 FATTY ACIDS/FISH OIL CAPSULE GT SCH (17:10)
[2021-04-13] MEDS: INSULIN GLARGINE,HUM 300 UNITS/3 ML CARTRIDGE SQ SCH (17:15)
[2021-04-13] MEDS: POTASSIUM CHLORIDE 20 MEQ POWDER PACKET GT SCH (19:15)
[2021-04-13] MEDS: FUROSEMIDE 20 MG TABLET GT SCH (20:00)
[2021-04-13] MEDS: ATORVASTATIN 20 MG TABLET GT SCH (21:00)
[2021-04-13] MEDS: HYDROGEN PEROXIDE 3% 118 ML BOTTLE TP SCH (21:00)
[2021-04-13] MEDS: DOCUSATE SODIUM 100 MG/10 ML LIQUID UDC GT SCH (21:00)
[2021-04-13] MEDS: [UNRECOGNIZED DRUG - OTHER] TOP SCH (21:00)
[2021-04-13] MEDS: FERROUS SULFATE 330 MG/7.5 ML UDC- FOR SA ONLY GT SCH (21:00)
[2021-04-13] MEDS: ACIDOPHILUS/BULGARICUS CHEW TAB GT SCH (21:00)
[2021-04-13] MEDS: COD LIVER OIL/ZINC OXIDE OINT 113 GM TUBE TOP SCH (21:00)
[2021-04-14] MEDS: REFRESH EYE RIGHTEYE SCH ×6 (01:00→20:32)
[2021-04-14] MEDS: POLYVINYL ALCOHOL OPHT DROPS 15 ML BOTTLE EACHEYE SCH ×6 (04:00→20:27)
[2021-04-14] MEDS: OMEPRAZOLE 20 MG CAPSULE.DR GT SCH (05:29)
[2021-04-14] MEDS: OMEGA-3 FATTY ACIDS/FISH OIL CAPSULE GT SCH ×2 (05:29→17:25)
[2021-04-14] MEDS: LEVOTHYROXINE SODIUM 50 MCG TABLET GT SCH (05:32)
[2021-04-14] MEDS: BLOOD SUGAR DIAGNOSTIC 1 EACH STRIP VI SCH ×3 (05:45→21:54)
[2021-04-14] MEDS: INSULIN GLARGINE,HUM 300 UNITS/3 ML CARTRIDGE SQ SCH ×2 (06:00→17:26)
[2021-04-14] MEDS: DOCUSATE SODIUM 100 MG/10 ML LIQUID UDC GT SCH ×2 (08:12→20:27)
[2021-04-14] MEDS: ACIDOPHILUS/BULGARICUS CHEW TAB GT SCH ×2 (08:12→20:28)
[2021-04-14] MEDS: POTASSIUM CHLORIDE 20 MEQ POWDER PACKET GT SCH (08:19)
[2021-04-14] MEDS: [UNRECOGNIZED DRUG - OTHER] TOP SCH ×2 (08:19→20:32)
[2021-04-14] MEDS: COD LIVER OIL/ZINC OXIDE OINT 113 GM TUBE TOP SCH ×2 (08:19→20:32)
[2021-04-14] MEDS: HYDROGEN PEROXIDE 3% 118 ML BOTTLE TP SCH ×2 (08:50→21:47)
[2021-04-14] MEDS: INSULIN REGULAR, HUMAN 300 UNIT/3 ML VIAL SQ PRN (13:55)
[2021-04-14] MEDS: FERROUS SULFATE 330 MG/7.5 ML UDC- FOR SA ONLY GT SCH (20:28)
[2021-04-14] MEDS: ATORVASTATIN 20 MG TABLET GT SCH (20:32)
[2021-04-15] MEDS: POLYVINYL ALCOHOL OPHT DROPS 15 ML BOTTLE EACHEYE SCH ×6 (00:26→20:00)
[2021-04-15] MEDS: REFRESH EYE RIGHTEYE SCH ×6 (01:00→21:36)
[2021-04-15] MEDS: OMEGA-3 FATTY ACIDS/FISH OIL CAPSULE GT SCH ×2 (05:00→17:33)
[2021-04-15] MEDS: OMEPRAZOLE 20 MG CAPSULE.DR GT SCH (05:00)
[2021-04-15] MEDS: LEVOTHYROXINE SODIUM 50 MCG TABLET GT SCH (05:01)
[2021-04-15] MEDS: GLUCERNA 1.2 1000ML LIQUID GT PRN (05:01)
[2021-04-15] MEDS: BLOOD SUGAR DIAGNOSTIC 1 EACH STRIP VI SCH ×3 (05:01→21:36)
[2021-04-15] MEDS: INSULIN GLARGINE,HUM 300 UNITS/3 ML CARTRIDGE SQ SCH ×2 (05:53→17:33)
[2021-04-15] MEDS: INSULIN REGULAR, HUMAN 300 UNIT/3 ML VIAL SQ PRN ×2 (06:09→13:50)
[2021-04-15] MEDS: BISACODYL 10 MG SUPP.RECT RC SCH (08:31)
[2021-04-15] MEDS: ACIDOPHILUS/BULGARICUS CHEW TAB GT SCH ×2 (08:31→21:36)
[2021-04-15] MEDS: POTASSIUM CHLORIDE 20 MEQ POWDER PACKET GT SCH (08:31)
[2021-04-15] MEDS: DOCUSATE SODIUM 100 MG/10 ML LIQUID UDC GT SCH ×2 (08:31→21:36)
[2021-04-15] MEDS: COD LIVER OIL/ZINC OXIDE OINT 113 GM TUBE TOP SCH ×2 (08:36→21:36)
[2021-04-15] MEDS: [UNRECOGNIZED DRUG - OTHER] TOP SCH (08:36)
[2021-04-15] MEDS: HYDROGEN PEROXIDE 3% 118 ML BOTTLE TP SCH ×2 (08:50→21:09)
[2021-04-15] MEDS: COD LIVER OIL/ZINC OXIDE OINT 113 GM TUBE TP SCH (21:36)
[2021-04-15] MEDS: FERROUS SULFATE 330 MG/7.5 ML UDC- FOR SA ONLY GT SCH (21:36)
[2021-04-15] MEDS: ATORVASTATIN 20 MG TABLET GT SCH (21:36)
[2021-04-16] MEDS: REFRESH EYE RIGHTEYE SCH ×6 (01:33→20:06)
[2021-04-16] MEDS: POLYVINYL ALCOHOL OPHT DROPS 15 ML BOTTLE EACHEYE SCH ×7 (04:29→23:12)
[2021-04-16] MEDS: OMEGA-3 FATTY ACIDS/FISH OIL CAPSULE GT SCH ×2 (05:26→17:40)
[2021-04-16] MEDS: LEVOTHYROXINE SODIUM 50 MCG TABLET GT SCH (05:26)
[2021-04-16] MEDS: OMEPRAZOLE 20 MG CAPSULE.DR GT SCH (05:26)
[2021-04-16] MEDS: BLOOD SUGAR DIAGNOSTIC 1 EACH STRIP VI SCH ×3 (05:26→21:55)
[2021-04-16] MEDS: GLUCERNA 1.2 1000ML LIQUID GT PRN (05:27)
[2021-04-16] MEDS: INSULIN GLARGINE,HUM 300 UNITS/3 ML CARTRIDGE SQ SCH ×2 (06:29→17:43)
[2021-04-16] MEDS: HYDROGEN PEROXIDE 3% 118 ML BOTTLE TP SCH ×2 (09:00→21:13)
[2021-04-16] MEDS: ACIDOPHILUS/BULGARICUS CHEW TAB GT SCH ×2 (09:37→20:05)
[2021-04-16] MEDS: DOCUSATE SODIUM 100 MG/10 ML LIQUID UDC GT SCH ×2 (09:37→20:04)
[2021-04-16] MEDS: POTASSIUM CHLORIDE 20 MEQ POWDER PACKET GT SCH ×2 (09:38→20:02)
[2021-04-16] MEDS: COD LIVER OIL/ZINC OXIDE OINT 113 GM TUBE TOP SCH ×2 (09:38→20:06)
[2021-04-16] MEDS: COD LIVER OIL/ZINC OXIDE OINT 113 GM TUBE TP SCH ×2 (09:38→20:06)
[2021-04-16] MEDS: INSULIN REGULAR, HUMAN 300 UNIT/3 ML VIAL SQ PRN ×2 (14:07→21:56)
[2021-04-16] MEDS: FERROUS SULFATE 330 MG/7.5 ML UDC- FOR SA ONLY GT SCH (20:04)
[2021-04-16] MEDS: FUROSEMIDE 20 MG TABLET GT SCH (20:04)
[2021-04-16] MEDS: ATORVASTATIN 20 MG TABLET GT SCH (20:06)
[2021-04-17] MEDS: REFRESH EYE RIGHTEYE SCH ×6 (01:39→21:00)
[2021-04-17] MEDS: POLYVINYL ALCOHOL OPHT DROPS 15 ML BOTTLE EACHEYE SCH ×5 (04:00→20:57)
[2021-04-17] MEDS: OMEPRAZOLE 20 MG CAPSULE.DR GT SCH (05:19)
[2021-04-17] MEDS: OMEGA-3 FATTY ACIDS/FISH OIL CAPSULE GT SCH ×2 (05:19→17:10)
[2021-04-17] MEDS: LEVOTHYROXINE SODIUM 50 MCG TABLET GT SCH (05:19)
[2021-04-17] MEDS: BLOOD SUGAR DIAGNOSTIC 1 EACH STRIP VI SCH ×3 (05:20→22:00)
[2021-04-17] MEDS: GLUCERNA 1.2 1000ML LIQUID GT PRN (05:20)
[2021-04-17] MEDS: INSULIN GLARGINE,HUM 300 UNITS/3 ML CARTRIDGE SQ SCH ×2 (05:21→17:28)
[2021-04-17] MEDS: ACIDOPHILUS/BULGARICUS CHEW TAB GT SCH ×2 (08:54→21:00)
[2021-04-17] MEDS: POTASSIUM CHLORIDE 20 MEQ POWDER PACKET GT SCH (08:54)
[2021-04-17] MEDS: DOCUSATE SODIUM 100 MG/10 ML LIQUID UDC GT SCH ×2 (08:54→21:00)
[2021-04-17] MEDS: COD LIVER OIL/ZINC OXIDE OINT 113 GM TUBE TOP SCH ×2 (08:55→21:00)
[2021-04-17] MEDS: COD LIVER OIL/ZINC OXIDE OINT 113 GM TUBE TP SCH ×2 (08:55→21:00)
[2021-04-17] MEDS: BISACODYL 10 MG SUPP.RECT RC SCH (08:55)
[2021-04-17] MEDS: HYDROGEN PEROXIDE 3% 118 ML BOTTLE TP SCH ×2 (09:00→21:00)
[2021-04-17] MEDS: INSULIN REGULAR, HUMAN 300 UNIT/3 ML VIAL SQ PRN (13:21)
--- NOTE | 2021-04-17 19:15 | NUR ---
During rounds patient is in bed, connected to ventilator, no shortness of breath or work of breathing noted. Afebrile, no signs distress noted, will continue monitor.
[2021-04-17] MEDS: FERROUS SULFATE 330 MG/7.5 ML UDC- FOR SA ONLY GT SCH (21:00)
[2021-04-17] MEDS: ATORVASTATIN 20 MG TABLET GT SCH (21:00)
--- NOTE | 2021-04-17 22:32 | NUR ---
Nurse called from the patient's room to check on the patient. On assessment, patient looks pale, This Nurse was unable to feel for the Pulse, and unable to appreciate other the vital signs. Blood sugar was 126, Patient is Full Code, initiated CPR, code blue was called. Code blue Team was here. After 30 minutes on the code, Staff was not able to appreciate pulse and patient was pronounced by ER Doctor @[id number]. Left message to Dr. Newman (PMD) to call back, This Nurse was able to speak with Dr. Puri (call center nurse for Dr. Nolan, Shoulder Boner) and notified him of the patient passing. Daughter Mana was Notified and was here with her Daughter Antoinette to see the remains. Mana will pickle sorter some picture and CD's, placed in a patient belongings bag for pickle sorter. Post Mortem care done to the patient, with proper Name band for Identification.
[2021-04-18] MEDS ORDERED: CALCIUM CHLORIDE 1 GM/10 ML DISP.SYRIN IV ONE (02:15)
[2021-04-18] MEDS ORDERED: EPINEPHRINE 1:10,000 1 MG/10 ML DISP.SYRIN IV ONE (02:15)
[2021-04-18] MEDS ORDERED: SODIUM BICARBONATE 8.4% 50 MEQ/50 ML DISP.SYRIN IV ONE (02:15)
--- NOTE | 2021-04-18 02:20 | NUR ---
Code blue was called. After 30 mins on the code,staff was not able to feel a pulse.Patient was pronounced by ER Doctor at 2305.
[2022-03-31] MEDS ORDERED: TUBERCULIN,PURIF.PROT.DERIV. 5 TU/0.1 ML TEST ID SCH (09:00)
== END 2021-04-18 02:16 | DRG 207 ==
LOC: SA
PROVIDERS: ADMIT Internal Medicine; ATTEND Internal Medicine
PROC: 5A1955Z Respiratory Ventilation, Greater than 96 Consecutive Hours (ICD-10-PCS; principal; 2021-04-11)
PROC: 5A12012 Performance of Cardiac Output, Single, Manual (ICD-10-PCS; 2021-04-18)
DX: J96.21 Acute and chronic respiratory failure with hypoxia (principal); I69.359 Hemiplegia and hemiparesis following cerebral infarction affecting unspecified side; G93.49 Other encephalopathy; Z99.11 Dependence on respirator [ventilator] status; L10.9 Pemphigus, unspecified; D64.9 Anemia, unspecified; E03.9 Hypothyroidism, unspecified; E11.9 Type 2 diabetes mellitus without complications; E78.5 Hyperlipidemia, unspecified; I69.398 Other sequelae of cerebral infarction; I10 Essential (primary) hypertension; I25.10 Atherosclerotic heart disease of native coronary artery without angina pectoris; I46.9 Cardiac arrest, cause unspecified; L60.0 Ingrowing nail; N43.3 Hydrocele, unspecified; N45.1 Epididymitis; R13.10 Dysphagia, unspecified; Z93.1 Gastrostomy status; Z93.0 Tracheostomy status; Z79.4 Long term (current) use of insulin; S90.822A Blister (nonthermal), left foot, initial encounter; Z87.01 Personal history of pneumonia (recurrent); K59.00 Constipation, unspecified; Z87.440 Personal history of urinary (tract) infections; R33.9 Retention of urine, unspecified
CPT/HCPCS: 94003; A6209; J0171; J3490; U0003